=== PATIENT | male | born 1940 | race Caucasian/White ===

== ENCOUNTER 2019-11-22 06:00 | Outpatient (RCR) | payer MEDICARE, OTHER, SELFPAY | END 2019-12-21 23:59 | disposition home or self-care (01) | LOC: SPT 06:00 | PROVIDERS: Family Provider Internal Medicine; Visit Provider Licensed Practical Nurse | DX: M51.17 Intervertebral disc disorders with radiculopathy, lumbosacral region (principal) | CPT/HCPCS: 97001; 97110; 97161 ==

== ENCOUNTER → 2019-12-05 14:04 | Outpatient (BNVA) | payer OTHER, MEDICARE, SELFPAY | PROVIDERS: Family Provider Internal Medicine; PCP Internal Medicine; Visit Provider Nurse Practitioner | DX: G89.29 Other chronic pain (principal); M54.42 Lumbago with sciatica, left side; M54.41 Lumbago with sciatica, right side; Z79.891 Long term (current) use of opiate analgesic | CPT/HCPCS: 99213 ==

== ENCOUNTER → 2019-12-11 10:18 | Outpatient (BNVA) | payer OTHER, MEDICARE, SELFPAY | PROVIDERS: Family Provider Family Medicine; PCP Internal Medicine; Visit Provider Psychiatry & Neurology Neurology | DX: M51.17 Intervertebral disc disorders with radiculopathy, lumbosacral region (principal) | CPT/HCPCS: 95886; 95909 ==

== ENCOUNTER → 2020-01-02 11:10 | Outpatient (BNVA) | payer OTHER, SELFPAY | PROVIDERS: Family Provider Internal Medicine; PCP Internal Medicine; Visit Provider Anesthesiology | DX: M51.17 Intervertebral disc disorders with radiculopathy, lumbosacral region (principal); Z79.891 Long term (current) use of opiate analgesic | CPT/HCPCS: 99213; 99214 ==

== ENCOUNTER → 2020-01-10 05:47 | Day surgery (SDC) | payer OTHER, SELFPAY ==
--- NOTE | 2020-01-10 | XR_ITS ---
WS: [id number] XR lumbar spine 1V port [id number] REASON FOR EXAM: SURGERY/LEVEL FINDINGS: Markers were made for surgical level the markers are directed between the L3-L4 level. XR/XR lumbar spine 1V port [id number] IMPRESSION: 1 view lateral marker film provided shows localization at the L3-L4 level.
--- NOTE | 2020-01-10 | XR_ITS ---
WS: [id number] XR lumbar spine 1V port [id number] REASON FOR EXAM: SURGERY/LEVEL FINDINGS: The anterior listhesis L5-S1 appears to be improved since the earlier exams. There is degenerate disc changes L2-L3 with narrowing of the disc space. There is spurring anteriorly at L1-to-3. A marker is noted between the L3-4 level posteriorly. XR/XR lumbar spine 1V port [id number] IMPRESSION: A marker is noted between the L3 for level. There is thinning of the disc space L2-L3.
== END ==
PROVIDERS: Family Provider Internal Medicine; PCP Internal Medicine; Visit Provider Specialist
DX: Z01.818 Encounter for other preprocedural examination (principal); M48.061 Spinal stenosis, lumbar region without neurogenic claudication
CPT/HCPCS: 72020

== ENCOUNTER 2020-01-10 11:07 | Observation (INO) | payer OTHER, SELFPAY ==
[2020-01-09 13:49] VITALS: BMI 29.2
[2020-01-10] VITALS (19 sets, daily range): BP systolic 106–175; BP diastolic 56–85; PULSE 72–169; RESP 14–22; TEMP 36.2–36.8; O2SAT 91–100
[2020-01-10] MEDS: sodium chloride 0.9% 1,000 ML 30 ML IV (06:39)
--- NOTE | 2020-01-10 06:41 | ANES.PREANE2 ---
Pre-Anesthetic Assessment Pre-Anesthetic Assessment: Height/Weight: Height 1.68 m Weight 82.1 kg Temp Pulse Resp BP Pulse Ox 97.1 F L 77 18 162/84 95 01/10/20 06:22 01/10/20 06:22 01/10/20 06:22 01/10/20 06:22 01/10/20 06:22 Preop Diagnosis: Lumbar Spinal stenosis Proposed Procedure: Operation Date: 01/10/20 07:00 Proposed Procedures p Hemilaminotomy Foraminotomy Discectomy 2 L2-L3 L3-L4(Bilateral) - Valentin Foley MD Was Beta Shannen taken within 24 hours: Yes Last intake: Intake Last Liquid Date 01/09/20 Last Liquid Time 21:00 Last Solid Date 01/09/20 Last Solid Time 16:00 Social: Social History: No alcohol and No tobacco Exam: Pre-Anes Outpt Exam: alert, oriented x 3, clear to auscultation bilaterally and regular rate & rhythm Airway: Submandibular: WNL Cervical ROM: WNL MP: 2 Dentition: Other (poor dentation) History/ROS: No significant history except as noted Pulmonary: Pulmonary: Sleep apnea CV/HEM: CV/HEM: HTN : : None reported Hepatic: Hepatic: None reported GI: GI: None reported Metabolic: Metabolic: Hyperlipidemia Musc/skel: Musc/skel: Lower Back Pain and Weakness (LE) Neuropsych: Comments: sha carter Anesthetic Plan: ASA status: 3 Anesthesia: Anesthesia Evaluation and General Risk of > 500 ml blood loss (7ml/kg in children): No Meds/Allergies Current Medications: Current Medications Generic Name Dose Route Start Last Admin Trade Name Freq PRN Reason Stop Dose Admin Sodium Chloride 1,000 mls @ 30 ml s/hr 01/10/20 06:00 01/10/20 06:39 Sodium Chloride 0.9% IV 01/11/20 05:59 30 mls/hr .Q24H LISBET Administration PFSH Anesthesia PFSH: Medical History Intervertebral disc disorders with radiculopathy, 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 Grandmother CAD (coronary artery disease) Cancer Myocardial infarct Family/Other Hypertension Social History Smoking and tobacco status: never smoked Alcohol intake: never Marital status: / Current occupational status: retired History of recent travel: No Data Anesthesia Cardiac Studies: No Data to Display
[2020-01-10] MEDS: vancomycin 1,000 MG in sodium chloride 0.9% 250 ML 250 MG IV (06:46)
--- NOTE | 2020-01-10 06:58 | W.PM.OPSUD ---
Surgery/Procedure H&P Update DATE OF PROCEDURE: January 10, 2020 DATE H&P PERFORMED: 01/08/20 H&P UPDATE INFORMATION: I have reviewed H&P completed within last 30 days CHANGES TO PREVIOUS DOCUMENTATION: PCN - injection site reaction PREOP DIAGNOSIS: Lumbar Spinal stenosis PRIMARY INDICATION FOR PROCEDURE: Low back pain and lower extremity symptoms. PLANNED PROCEDURE: Operation Date: 01/10/20 07:00 Proposed Procedures Bilateral L2-L3, L3-L4 Hemilaminotomy/Foraminotomy/Discectomy - Valentin Foley MD
--- NOTE | 2020-01-10 07:16 | PM.OP2 ---
 Brief Operative Note: Date of procedure: 01/10/20 Pre-op diagnosis: Lumbar spinal stenosis Post-op diagnosis: same (with disc displacement) Procedure Done: Bilateral L2-L3 laminotomy/foraminotomy Bilateral L3-L4 laminotomy/foraminotomy and limited discectomy Surgeon: Valentin Foley Estimated blood loss (mL): 125 Complications: None Post-op Plan: PACU, then surgical bean Condition: stable Disposition: PACU Coding Level of Care Code Acute Machine Tack Puller for Krystyna Antony
--- NOTE | 2020-01-10 08:22 | SUR.OPER ---
Family Notified Of Patient's Status Via Phone.
--- NOTE | 2020-01-10 09:42 | SUR.OPER ---
Family Notified Of Patient's Status Via Phone.
--- NOTE | 2020-01-10 10:58 | SUR.PHASEI ---
1057 HOLDING PT IN PACU AWAITING ROOM ON FLOOR
[2020-01-10] MEDS: fentaNYL 50 mcg/mL INJ 2mL IVP ×2 (11:24→11:30)
--- NOTE | 2020-01-10 11:48 | P.OP_ITS ---
Operative Report Date of procedure: January 10, 2020 Pre-op Diagnosis: Lumbar Spinal stenosis Post-op Diagnosis: Lumbar disc displacement, with radiculopathy. Lumbar spinal stenosis, with neurogenic claudication. Procedure Done: Bilateral L3-L4 hemilaminotomy/foraminotomy, with limited discectomy. Bilateral L2-L3 laminotomy/foraminotomy. Implants: None Specimens removed/disposition: L3-L4 disc Pathology: Lumbar disc fragments Surgeon: Valentin Foley Anesthesia: General Estimated blood loss (mL): 125 IV fluids (mL): 1,000 Urine output (mL): 100 Complications: None. Condition: stable Disposition: PACU Brief History: The patient is a 79-year-old white male with symptomatic, radiographically confirmed lumbar disc/joint disease and associated spinal stenosis. Imaging studies demonstrated dominant abnormalities at L2-L3 and L3- L4. Conservative treatment trials failed to provide adequate lasting relief. After review of the options, with the risks/potential benefits/rationale for each, the patient requested to proceed with bilateral surgical decompression at L2-L3 and L3-L4. Procedure: After routine preoperative evaluation and informed consent were obtained, the patient was taken to the Operating Room and placed under general endotracheal anesthesia. He was rotated onto the Operating Room table in the modified knee-chest position with the aid of the [place] spine frame. The lumbosacral area was prepared with hair clippers. A proposed midline skin incision was marked with a sterile skin marker, following localization with intraoperative radiography. The lumbosacral area was scrubbed with Betadine and prepped with DuraPrep. Sterile towels and drapes were applied, and an [place] surgical barrier was placed. The proposed incision site was infiltrated with 1% Xylocaine with Epinephrine. A skin incision was made and carried down into the subcutaneous tissues. The lumbodorsal fascia was identified and divided in the midline. Subperiosteal dissection was carried down along the lamina of L2, L3 and L4 on the right. Deep self-retaining retractor was placed. Intraoperative radiography verified the desired surgical level. A laminotomy was fashioned across the L3-L4 interspace with Leksell and Kerrison rongeurs. Ligamentum flavum was resected at the base of the laminotomy site with Kerrison rongeurs. Ligament resection was extended across the midline and into the lateral recess. A limited resection of the medial aspect of the facet joint was also performed to further decompress the lateral recess. The neural foramen was identified and enlarged in its medial extent with Kerrison rongeurs. The thecal sac was retracted from lateral to medial with the nerve root retractor. Residual neural impingement and lateral recess/foraminal encroachment were noted related to disc displacement. The disc annulus was incised in the area of most prominent disc displacement. Disc was resected with various curettes and pituitary rongeurs. Once the decompression was felt to be adequate at L3-L4, a laminotomy was fashioned across the L2-L3 interspace. Ligamentum flavum was resected to base the laminotomy site. Resection was extended across the midline and into the lateral recess. A limited resection of the medial aspect of the facet joint was performed. Disc herniation was not identified, and no discectomy was performed. The dura was covered with thrombin-soaked Gelfoam and cottonoids. The retractors were repositioned to the left side. A left-sided subperiosteal dissection was carried out across L2-L3 and L3-L4. A laminotomy was again fashioned with Leksell and Kerrison rongeurs at L3-L4 and subsequently at L2-L3. Ligamentum flavum was resected at the base of the laminotomy sites, with extension into the lateral recesses. A limited resection of the medial aspect of the facet joints was performed with Kerrison rongeurs. The neural foramina were enlarged in their medial extent. Disc bulge was encountered, without hien disc herniation. No additional disc material was removed. Retractors were repositioned to maximize the exposure bilaterally. The previously placed Gelfoam and Cottonoids were removed, and the wound was copiously irrigated with sterile saline and antibiotic irrigation. Bilateral decompression of the neural elements at the operative levels was again verified with the [place] dental instrument. A thin layer of Surgi-Corona hemostatic matrix was placed over the dura at each laminotomy site. Wound closure was then performed in multiple layers with 2-0 Vicryl Plus simple interrupted closure of the lumbodorsal fascia, superficial fascia and deep dermis as separate layers. Final skin closure was performed with 3-0 Vicryl Plus in a running subcuticular pattern. Steri-Strips were applied, and a sterile dressing was placed. He was rotated onto the Recovery Room cart in the supine position, and extubated by Anesthesia personnel. He tolerated the procedure well. All sponge, needle, and instrument counts were correct at the completion of the procedure.
[2020-01-10] MEDS: lactated ringers 1,000 ML 90 ML IV ×2 (12:40→23:50)
[2020-01-10] MEDS: ketorolac 30 mg/mL INJ 15 MG IVP ×3 (12:40→23:40)
[2020-01-10] MEDS: TRAMadol 50 mg Tablet 100 MG PO ×2 (13:12→23:41)
[2020-01-10] MEDS: acetaminophen 325 mg Tablet 650 MG PO (15:15)
[2020-01-10] MEDS: carbidopa-levodopa 25-100mg Tablet 1 EACH PO ×2 (16:32→19:14)
--- NOTE | 2020-01-10 17:24 | PC.NURSE ---
bladder scan 76 is the most urine scanned on bladder. pt has voided once since surgery.
--- NOTE | 2020-01-10 18:18 | PM.PN ---
Subjective Subjective: Interval history: Reports surgical site soreness. Ambulated around nurses station. No leg problems. Vitals/I&O/Wt Last Vital Signs Temp 97.8 F 01/10/20 15:15 Pulse 80 01/10/20 17:01 Resp 18 01/10/20 15:15 BP 146/60 01/10/20 15:15 Pulse Ox 91 01/10/20 15:15 01/10/20 01/10/20 01/10/20 06:59 14:59 22:59 Intake Total 1700 / 1700 Output Total 525 / 525 Balance 1175 / 1175 Weight last 48 hrs Weight 181 lb Physical Exam Const: COMMON NORMALS: no apparent distress GENERAL APPEARANCE: cooperative Eye: ALIGNMENT: Yes alignment normal Neck/C-Spine: COMMON NORMALS: supple Resp: COMMON NORMALS: normal respiratory effort EFFORT & INSPECTION: Yes able to speak in complete sentences and No stridor Back/Pelvis: LUMBAR SPINE/LOWER BACK: Yes normal to inspection Neuro: COMMON NORMALS: moves all extremities SPEECH: speech normal MOTOR EXAM: strength 5/5 throughout (bilateral lower extremities) Psych: COMMON NORMALS: speech normal APPEARANCE: Yes grossly normal ATTITUDE: Yes calm and Yes engaged ACTIVITY/MOTOR BEHAVIOR: Yes appropriate eye contact SPEECH: Yes normal speech MOOD & AFFECT: Yes euthymic mood Skin: WOUNDS: Yes surgical site (Surgical site dressing with small amount of serosanguineous drainage.) Details: other (Dressing changed at bedside. Incision without active drainage.) Urinary Catheter Management^: Reaves: Cath Placed During This Visit: yes, but has since been removed by the nurse Urinary Catheter Date of Insertion: 01/10/20 Urinary Catheter Time of Insertion: 07:30 Date Urinary Catheter Removed: 01/10/20 Time Urinary Catheter Discontinued: 10:15 A&P Assessment and plan (1) Lumbar disc disease with radiculopathy: Doing well after bilateral L2-L3, L3-L4 laminotomy/foraminotomy and L3-L4 discectomy. He has ambulated in the halls with relief/marked improvement in pre-op symptoms noted. Plan completion of scheduled celestine-op IV antibiotic doses. Anticipate discharge home tomorrow. Status: Acute Code(s): M51.16 - Intervertebral disc disorders with radiculopathy, lumbar region (2) Lumbar stenosis with neurogenic claudication: Status: Chronic Code(s): M48.062 - Spinal stenosis, lumbar region with neurogenic claudication Attestations Medical Necessity Statement*: Patient is appropriate for in-hospital management after lumbar spine surgery. Coding Level of Care Code Acute Instructional Design Manager for [facility] Fwd Exam Comprehensive Diagnoses Lumbar disc disease with radiculopathy M51.16 Lumbar stenosis with neurogenic claudication M48.062
[2020-01-10] MEDS: docusate sodium 100 mg Capsule PO (18:34)
[2020-01-10] MEDS: primidone 50 mg Tablet 100 MG PO (19:13)
[2020-01-10] MEDS: losartan 50 mg Tablet PO (19:14)
[2020-01-10] MEDS: ondansetron 2 mg/ML SDV 2 mL 4 MG IVP (23:39)
--- NOTE | 2020-01-10 23:59 | PC.NURSE ---
Patient incontinent of urine large amount of urine in bed pad.
[2020-01-11] VITALS (7 sets, daily range): BP systolic 124–158; BP diastolic 57–78; PULSE 76–87; RESP 16–18; TEMP 36.6–36.9; O2SAT 92–95
--- NOTE | 2020-01-11 02:02 | PC.NURSE ---
Patient incontinent of urine, medium amount of urine in bed pad.
[2020-01-11] MEDS: ketorolac 30 mg/mL INJ 15 MG IVP (05:26)
[2020-01-11] MEDS: amlodipine 10 mg Tablet 5 MG PO (08:33)
[2020-01-11] MEDS: losartan 50 mg Tablet PO (08:33)
[2020-01-11] MEDS: TRAMadol 50 mg Tablet 100 MG PO ×3 (08:34→17:22)
[2020-01-11] MEDS: pregabalin 75 mg Capsule PO (08:35)
[2020-01-11] MEDS: docusate sodium 100 mg Capsule PO ×2 (08:35→17:22)
[2020-01-11] MEDS: citalopram 20 mg Tablet PO (08:35)
[2020-01-11] MEDS: carbidopa-levodopa 25-100mg Tablet 1 EACH PO ×3 (08:35→17:22)
--- NOTE | 2020-01-11 10:56 | PC.CHAP ---
Pastoral Care Encounter/Spiritual Assessment Type of Contact [] Declined railroad car loader visit [] Patient/Family/Request visit [] Outpatient visit [] Follow-up visit [] Physician referral [] Code/Alert [x] Routine visit [] Staff referral [] Actively dying [] Patient sleeping [] Family support [] [] Out of room [] Palliative care [] [] Receiving care in room [] Pre-surgical visit [] Trauma [] Long length of stay [] ICU visit [] Other: Relational/Emotional Strength [x] Patient feels connected with others/family/visitors/staff [] Distress [] Loneliness/isolation [] Abandonment Spirituality of Patient [x] Person of Gerda [x] Attends Church of their Gerda [x] Believes in Prayer [] Reads Bible or Jewish materials [] There are Spiritual issues to be addressed Senior Professional Services Consultant Interventions [x] Prayer [x] Active listening [x] Non-anxious presence [] Spiritual/emotional support [] Crisis/trauma care [] Spiritual counseling [] Bereavement support [] Provided bereavement packet [] Provided Bible/devotional materials [] Provided toy/stuffed animal, coloring book to patient or family member [] Provided Communion [] Anointing/[place] [] Salvation [x] Completed spiritual assessment [] Other: Impact on Illness or Injury [] Angry [] Fearful [] Anxious [] Often cries [] Exhaustion [] Unable to work [] Unable to attend episcopalian [] Unable to walk/stand [] Unable to read [] Unable to drive [] Unable to eat/drink [] Unable to sleep [] Unable to be with family [] Patient intubated [] Other: Summary patient in good spirts wants to go home seems alittle disorientated Time spent with patient 10 min 2 visitors
[2020-01-11] MEDS: acetaminophen 325 mg Tablet 650 MG PO (12:34)
[2020-01-11] MEDS: lactated ringers 1,000 ML 90 ML IV (15:14)
--- NOTE | 2020-01-11 19:42 | PM.DCS ---
Discharge Providers Date of Admission: 01/10/20 11:07 Date of Discharge: January 11, 2020 Attending Provider at Admission: Valentin Foley MD Attending Provider at Discharge: Valentin Foley MD Primary Care Provider: Gautam Godoy Diagnoses at Discharge Discharge Diagnosis (1) Lumbar disc disease with radiculopathy: Status: Acute Problem details: Improved. Status post surgery on January 10 (2) Lumbar stenosis with neurogenic claudication: Status: Chronic Reason for Visit Reason for Visit: Reason For Visit: Lumbar Spinal Stenosis Brief History: The patient is a 79-year-old white male with symptomatic, radiographically confirmed lumbar disc/joint disease and associated spinal stenosis. Imaging studies demonstrated dominant abnormalities at L2-L3 and L3-L4. Conservative treatment trials failed to provide adequate lasting relief. After review of the options, with the risks/potential benefits/rationale for each, the patient requested to proceed with bilateral surgical decompression at L2-L3 and L3-L4. Hospital Course Hospital Course: The patient underwent bilateral L2-L3 and L3-L4 laminotomy/foraminotomy, with limited L3-L4 discectomy, on 01/10/2020. He tolerated the procedure well, and noted improvement in pre-op lower extremity /claudication symptoms following surgery. He completed perioperative IV antibiotic doses and the Physical Therapy postop spine protocol. He experienced some confusion and urinary urgency issues postoperatively. However, he was ambulatory, voiding, and tolerating diet prior to discharge home with family on POD#1. Physical Exam Const: GENERAL APPEARANCE: cooperative and comfortable ORIENTATION/CONSCIOUSNESS: not other Neck/C-Spine: COMMON NORMALS: supple and no JVD Resp: COMMON NORMALS: normal respiratory effort EFFORT & INSPECTION: Yes able to speak in complete sentences, No tachypneic and No stridor Cardio: COMMON NORMALS: no JVD Back/Pelvis: LUMBAR SPINE/LOWER BACK: Yes straight leg raise negative bilaterally Extremity: COMMON NORMALS: no clubbing, cyanosis or edema Neuro: MOTOR EXAM: strength 5/5 throughout (lower extremities) Psych: COMMON NORMALS: cooperative ATTITUDE: Yes calm ACTIVITY/MOTOR BEHAVIOR: Yes appropriate eye contact SPEECH: Yes other MOOD & AFFECT: Yes euthymic mood THOUGHT PROCESS: confused (mild) Skin: WOUNDS: Yes surgical site (Surgical site dressing C/D/I) Details: other (Incision without erythema or drainage) Urinary Catheter Management^: Reavse: Cath Placed During This Visit: yes, but has since been removed by the nurse Urinary Catheter Date of Insertion: 01/10/20 Urinary Catheter Time of Insertion: 07:30 Date Urinary Catheter Removed: 01/10/20 Time Urinary Catheter Discontinued: 10:15 Discharge Data Data Completed and Pending: Completed Studies During Hospitalization Category Date Time Status Pathology: Surgic al [PTH] Routine Pth 01/10/20 10:09 Completed Vitals: Last Vital Signs Temp 98.5 F 01/11/20 20:27 Pulse 79 01/11/20 20:27 Resp 18 01/11/20 20:27 BP 158/78 01/11/20 20:27 Pulse Ox 93 01/11/20 20:27 Discharge Plan Discharge Patient Disposition: Home, Self-Care Condition: Stable Prescriptions: Continued ranitidine HCl 300 mg tablet 300 mg PO BID RF: 0 primidone 50 mg tablet 100 mg PO BEDTIME RF: 0 carbidopa-levodopa 25-100 mg tablet,disintegrating 1 tab PO QID RF: 0 losartan 100 mg tablet 50 mg PO ONCE RF: 0 No Action amlodipine 10 mg Tablet 10 mg PO DAILY Qty: 30 RF: 0 Aspirin Low Dose 81 mg tablet,delayed release (DR/EC) 81 mg PO DAILY Qty: 30 RF: 0 atorvastatin 40 mg Tablet 80 mg PO BEDTIME Qty: 30 RF: 0 Miralax 17 gram Powder In Packet 17 g PO BID Qty: 60 RF: 0 Lidoderm 5 % Adhesive Patch,Medicated 1 patch topical [id number] Qty: 30 RF: 0 tramadol 50 mg tablet 50 mg PO TID PRN (Reason: pain) Qty: 20 RF: 0 Plavix 75 mg tablet 75 mg PO DAILY Qty: 30 RF: 0 Discharge Orders: Discharge Order (Routine); Ordered 01/11/20 Ordered By: Valentin Foley Referrals: Valentin Foley MD [Physician] - 2 weeks Discharge Diet: Regular Discharge Activity: Limit activity as instructed Activity Restrictions/Additional Instructions: Activity - No driving until office followup visit - No lifting/pushing/pulling over 10 pounds - Avoid twisting or bending - Walking is encouraged - Home exercise per physical therapist - You may engage in sexual intercourse at any time as long as it is comfortable for you - Check with your doctor before returning to work. Notify your doctor if you develop: - temperature of 101.5 degrees F. or higher - redness or swelling of the incision - Foul drainage - increasing pain - increasing numbness or tingling in the arms or legs - New or increasing problems with vision, balance, memory, speaking, nausea or vomiting Hygiene: - Showering is okay - No tub baths or soaking Other: Remove outer bandage 3 days after surgery. If you have paper strips, leave in place until they fall off on their own. If you have stitches, keep your incision dry until the stitches are removed. Your doctor's office is available to answer any questions from 7 AM to 5:00 PM, Tuesday through at [phone]. After hours, go to the emergency room at [facility] or call 911 for assistance. Discharge Date/Time: 01/11/20 20:50 Discharge Attestations Time Spent in Discharge Care*: other (postop global) Quality Metrics Clinical Quality Measures During this hospital stay, did patient experience: None Coding Level of Care Code Acute Recycler for [facility] Fwd Exam Comprehensive Diagnoses Lumbar disc disease with radiculopathy M51.16 Lumbar stenosis with neurogenic claudication M48.062 Comment postop global
--- NOTE | 2020-01-11 20:50 | PC.NURSE ---
Pt discharged home with family, left via wheelchair. All belongings went with pt, pt understands discharge instructions, pt informed that gate services supervisor would not be available to assist with home health set up until morning, pt verbalized understanding. Hilaria Sharp RN called and left a message with Amusement Equipment Operator to assist pt with home health placement in the morning.
== END 2020-01-11 20:50 | disposition home or self-care (01) ==
LOC: MEDSURG 11:28
PROVIDERS: Admitting Provider Specialist; Family Provider Internal Medicine; PCP Internal Medicine; Visit Provider Specialist
PROC: (CPT 22899; principal; 2020-01-10 07:00)
DX: M51.16 Intervertebral disc disorders with radiculopathy, lumbar region (principal); M48.062 Spinal stenosis, lumbar region with neurogenic claudication; G47.30 Sleep apnea, unspecified; I10 Essential (primary) hypertension; E78.5 Hyperlipidemia, unspecified; G20 Parkinson's disease; Z80.42 Family history of malignant neoplasm of prostate; Z90.49 Acquired absence of other specified parts of digestive tract; Z82.49 Family history of ischemic heart disease and other diseases of the circulatory system
CPT/HCPCS: 63030; 63035; 12345; 51702; 72020; 88304; 96365; 96375; 97116; 97161; 97530; G0378; J0131; J0690; J1885; J2001; J2405; J2704; J3010; J3370; J3490; J7030; J7050

== ENCOUNTER 2020-01-12 16:31 | Inpatient (IN) | payer OTHER, SELFPAY ==
[2020-01-12] VITALS (10 sets, daily range): BP systolic 144–181; BP diastolic 60–92; PULSE 82–92; RESP 16–26; TEMP 36.6; O2SAT 94–98; BMI 29.3
--- NOTE | 2020-01-12 16:51 | ED_ITS ---
Entered by Lisa Hodge, acting as scribe for Bright Aden DO Jan 12, 2020 16:31 HPI - Altered Mental Status General: Chief Complaint: Altered Mental Status Stated Complaint: AMS S/P BACK SURGERY Time Seen by Provider: 01/12/20 16:50 Source: patient Mode of arrival: EMS Limitations: altered mental status History of Present Illness: HPI narrative: 79 yo Male presents to ED with complaint of altered mental status. Pt states that he didn't know he was brought into the hospital. Pt knows that he is in [place] and states he is with his daughter. Pt states that it is January and he doesn't know what year it is. Pt has recently had lower back surgery. Pt states that it doesn't hurt when he pees. Pt's family states that patient has had issues controlling his bowels since he was catherized for his surgery. Pt's family states that the patient does also have Parkinson's and they were told that the patient might have continued effects of the anesthesia for a couple of days but that the patient should be gradually getting better. Pt's family states that the patient has been getting worse and today started complaining of left arm pain. laminectomy done [address] Foley. complaint: altered mental status Onset (ago): day(s) Consistency of symptoms: Getting Worse Context: other (back surgery 3 days ago) Associated symptoms: Deny auditory hallucinations, visual hallucinations, depression, homicidal ideation or suicidal ideation Review of Systems Const: Denies: fever, chills, body aches, fatigue, malaise or night sweats Eyes: Denies: change in vision or blurry vision ENMT: Denies: throat pain, oral sores/lesions, dental pain, nasal discharge or nasal congestion Card: Denies: chest pain, palpitations, irregular heart rhythm, edema, syncope, shortness of breath on exertion, shortness of breath when lying down or leg pain with exertion Resp: Denies: shortness of breath, productive cough, non-productive cough or wheezing GI: Denies: abdominal pain, nausea, vomiting, vomiting blood, coffee grounds in vomit, difficulty swallowing, heartburn/indigestion, diarrhea, constipation, cramping, blood in stool or black tarry stool : Denies: flank pain, difficulty urinating, painful urination, urinary frequency, urinary urgency, urinary incontinence or blood in urine Musc: Denies: neck pain, back pain, extremity pain, extremity swelling, joint pain or joint swelling Skin/Breast: Denies: rash, itching or redness Neuro: Reports: confusion; Denies: headache, numbness in extremities, weakness in extremities, changes in sensation, lack of coordination, difficulty walking, frequent falls, dizziness or vertigo Psych: Denies: anxiety, depression, loss of interest, visual hallucinations, auditory hallucinations, suicidal ideation or homicidal ideation Endo: Denies: excessive urination, excessive thirst, tired all the time or cold intolerance Griffin/Lymph: Denies: easy bruising, easy bleeding, petechiae, enlarged lymph nodes or tender lymph nodes PFSH ED PFSH: Medical History (Updated 01/14/20 @ 14:52 by Bright Aden DO) Arthritis of left acromioclavicular joint Closed fracture of neck of left humerus Intervertebral disc disorders with radiculopathy, lumbosacral region Lumbar stenosis with neurogenic claudication Osteoarthritis of right glenohumeral joint Parkinson's disease Prostate CA Radioactive seed implant 2009 Surgical History H/O elbow surgery S/P cataract extraction BILATERAL S/P cholecystectomy S/P shoulder surgery S/P tonsillectomy and adenoidectomy Family History Mother No problems noted. Grandmother CAD (coronary artery disease) Cancer Myocardial infarct Family/Other Hypertension Social History Smoking and tobacco status: never smoked Alcohol intake: never Marital status: / Current occupational status: retired History of recent travel: No Physical Exam Const: COMMON NORMALS: average body habitus, oriented x3 and alert GENERAL APPEARANCE: cooperative, comfortable, well kempt and well developed NUTRITIONAL APPEARANCE: obese ORIENTATION/CONSCIOUSNESS: Yes awake, Yes oriented to person and Yes oriented to place HENMT: COMMON NORMALS: normocephalic, head/scalp atraumatic, EAC's normal, TM's normal bilaterally, external nose normal, moist oral mucous membranes and oropharynx normal HEAD & SCALP: normocephalic and atraumatic NOSE: external nose normal EXTERNAL AUDITORY CANAL: EAC's normal TYMPANIC MEMBRANE: TM's normal bilaterally MOUTH: oral and palatal mucosa normal, lip normal and tongue normal THROAT: posterior oropharynx normal and tonsils normal Eye: COMMON NORMALS: PERRL, EOMs intact bilaterally, conjunctivae normal and no scleral icterus CONJUNCTIVA: Yes conjunctivae normal PUPIL: Yes PERRL Neck/C-Spine: COMMON NORMALS: full ROM, no lymphadenopathy, supple, no meningeal signs and thyroid normal THYROID: thyroid normal and asymmetrical Lymph: LYMPHATIC: no lymphadenopathy noted Resp: COMMON NORMALS: normal respiratory effort, no retractions, no use of accessory muscles and clear to auscultation bilaterally AUSCULTATION: clear to auscultation bilaterally Cardio: COMMON NORMALS: regular rate and regular rhythm RATE: regular rate RHYTHM: regular rhythm HEART SOUNDS: no murmurs GI: COMMON NORMALS: normal to inspection, nondistended, normoactive bowel sounds, soft to palpation and no hepatosplenomegaly PALPATION: Yes soft and Yes no hepatosplenomegaly : COMMON NORMALS: Yes no CVA tenderness BLADDER/KIDNEY EXAM: Yes no CVA tenderness Back/Pelvis: COMMON NORMALS: no CVA tenderness LUMBAR SPINE/LOWER BACK: Yes normal to inspection Extremity: COMMON NORMALS: no clubbing, cyanosis or edema, no calf tenderness and no pedal edema Neuro: COMMON NORMALS: oriented x3 SENSORIUM/ORIENTATION: Yes alert, Yes oriented to person and Yes oriented to place MENINGEAL SIGNS: Yes no meningeal signs Psych: APPEARANCE: Yes well kempt Skin: COMMON NORMALS: no rashes or lesions noted and skin turgor normal GENERAL SKIN EXAM: no rashes or lesions noted and turgor normal Course ED course: Reviewed findings with the family. Is concerned he may have developed an abscess but there is nothing on the CT. Organ to go ahead admitted for delirium suspect is related to his recent surgical procedure. He was still complaining of left arm pain there is no history of fall they thought that he had slept on it wrong. X-ray shows an impacted humeral head fracture. Hospitalist is admitting. Vital Signs: Vital signs: Vital Signs Temperature 98.5 F 01/14/20 11:06 Pulse Rate 64 01/14/20 11:06 Respiratory Rate 18 01/14/20 11:06 Blood Pressure 182/91 01/14/20 11:06 Pulse Oximetry 93 01/14/20 11:06 MDM - Altered Mental Status Lab Data: Labs: Lab Results 01/12/20 01/12/20 01/12/20 Range/Units 17:15 17:18 17:18 WBC 13.5 H (4.0-10.0) 10^3/ uL RBC 3.67 L (4.1-5.3) 10^6/u L Hgb 11.2 L (11.7-16.6) g/dL Hct 33.8 L (42.0-52.0) % MCV 92.1 (80-94) fL MCH 30.5 (28.0-34.0) pg MCHC 33.1 (30.0-36.0) g/dL RDW 12.2 (12.1-15.1) % Plt Count 128 L (130-400) 10^3/c mm MPV 10.8 H (7.4-10.4) fL Neut % (Auto) 82.8 % Lymph % (Auto) 5.9 % [place] % (Auto) 10.8 % Eos % (Auto) 0.0 % Baso % (Auto) 0.1 % Neut # (Auto) 11.2 H (1.8-7.7) 10^3/u L Lymph # (Auto) 0.8 (0.8-4.8) 10^3/u L [place] # (Auto) 1.5 H (0.2-0.9) 10^3/u L Eos # (Auto) 0.0 (0.0-0.8) 10^3/u L Baso # (Auto) 0.0 (0.0-0.1) 10^3/u L Nucleated RBC % (a uto) 0 % Nucleated RBCs # 0.0 /100WBC Specimen Type Arterial Sample Site Radial, right ABG pH 7.49 H (7.35-7.45) ABG pCO2 32.4 L (35-45) mmHg ABG pO2 77.6 L (80.0-100.0) mmH g ABG HCO3 24.5 (22-26) mmol/L ABG O2 Saturation 97.0 ABG Base Excess 1.6 (-2.0-2.0) mmol/ L Dean Test Pos A-a O2 Gradient 79.8 H (5-10) mmHg Hematocrit 37.5 L (42-52) % Hgb O2 Saturation 95.5 (95-100) % Carboxyhemoglobin 0.9 (0.4-20.1) %THgb Methemoglobin 0.6 (0.4-1.5) % Total Hemoglobin 12.2 L (14-18) g/dL Sodium 134.0 132 L (131-143) mmol/L Potassium 3.9 4.0 (3.5-5.0) mmol/L Glucose 115.0 115 (70-115) mg/dL Ionized Calcium 1.1 (1.1-1.4) mmol/L O2 Delivery Device Nc O2 Liters/Min 2.0 % FiO2 28.0 % [employer]ision Instrument Maker And Repairer ID ed Chloride 97 L (98-107) mmol/L Carbon Dioxide 23 (22-29) mmol/L Anion Gap 16.0 (5-19) BUN 12 (8-23) mg/dL Creatinine 0.8 (0.7-1.2) mg/dL Calcium 8.9 (8.5-10.5) mg/dL Total Bilirubin 0.5 (0.15-1.2) mg/dL AST 19 (0-40) U/L ALT < 5 (0-41) U/L Alkaline Phosphata se 101 (40-130) IU/L Troponin T Baselin e (0-15) ng/mL Troponin T 120 Min [facility] [place] (0-15) ng/mL Delta Troponin T (0-10) ABS# Total Protein 6.4 L (6.6-8.7) g/dL Albumin 3.4 L (3.5-5.2) g/dL Globulin 3.0 (1.3-4.6) g/dL Lipase 5 L (13-60) U/L Urine Color (Yellow) Urine Appearance (CLEAR) Urine pH (5-7) Ur Specific Gravit y (1.005-1.030) Urine Protein (Negative) Urine Glucose (UA) (Normal) Urine Ketones (Negative) Urine Blood (Negative) Urine Nitrate (Negative) Urine Bilirubin (NEGATIVE) Urine Urobilinogen (Negative) mg/dL Ur Leukocyte Adelaide ase (Negative) Urine RBC (0-2) /hpf Urine WBC (0-5) /hpf Ur Squamous Epith Cells (0-5) Urine Bacteria (NONE) Urine Mucus Serum Ketones (Negative) Influenza Type A A g (Negative) POC Influenza B Ag (Negative) 01/12/20 01/12/20 01/12/20 Range/Units 17:18 17:18 17:25 WBC (4.0-10.0) 10^3/ uL RBC (4.1-5.3) 10^6/u L Hgb (11.7-16.6) g/dL Hct (42.0-52.0) % MCV (80-94) fL MCH (28.0-34.0) pg MCHC (30.0-36.0) g/dL RDW (12.1-15.1) % Plt Count (130-400) 10^3/c mm MPV (7.4-10.4) fL Neut % (Auto) % Lymph % (Auto) % [place] % (Auto) % Eos % (Auto) % Baso % (Auto) % Neut # (Auto) (1.8-7.7) 10^3/u L Lymph # (Auto) (0.8-4.8) 10^3/u L [place] # (Auto) (0.2-0.9) 10^3/u L Eos # (Auto) (0.0-0.8) 10^3/u L Baso # (Auto) (0.0-0.1) 10^3/u L Nucleated RBC % (a uto) % Nucleated RBCs # /100WBC Specimen Type Sample Site ABG pH (7.35-7.45) ABG pCO2 (35-45) mmHg ABG pO2 (80.0-100.0) mmH g ABG HCO3 (22-26) mmol/L ABG O2 Saturation ABG Base Excess (-2.0-2.0) mmol/ L Dean Test A-a O2 Gradient (5-10) mmHg Hematocrit (42-52) % Hgb O2 Saturation (95-100) % Carboxyhemoglobin (0.4-20.1) %THgb Methemoglobin (0.4-1.5) % Total Hemoglobin (14-18) g/dL Sodium (131-143) mmol/L Potassium (3.5-5.0) mmol/L Glucose (70-115) mg/dL Ionized Calcium (1.1-1.4) mmol/L O2 Delivery Device O2 Liters/Min % FiO2 % [employer] Maker And Repairer ID Chloride (98-107) mmol/L Carbon Dioxide (22-29) mmol/L Anion Gap (5-19) BUN (8-23) mg/dL Creatinine (0.7-1.2) mg/dL Calcium (8.5-10.5) mg/dL Total Bilirubin (0.15-1.2) mg/dL AST (0-40) U/L ALT (0-41) U/L Alkaline Phosphata se (40-130) IU/L Troponin T Baselin e 15 (0-15) ng/mL Troponin T 120 Min [facility] [place] (0-15) ng/mL Delta Troponin T (0-10) ABS# Total Protein (6.6-8.7) g/dL Albumin (3.5-5.2) g/dL Globulin (1.3-4.6) g/dL Lipase (13-60) U/L Urine Color (Yellow) Urine Appearance (CLEAR) Urine pH (5-7) Ur Specific Gravit y (1.005-1.030) Urine Protein (Negative) Urine Glucose (UA) (Normal) Urine Ketones (Negative) Urine Blood (Negative) Urine Nitrate (Negative) Urine Bilirubin (NEGATIVE) Urine Urobilinogen (Negative) mg/dL Ur Leukocyte Adelaide ase (Negative) Urine RBC (0-2) /hpf Urine WBC (0-5) /hpf Ur Squamous Epith Cells (0-5) Urine Bacteria (NONE) Urine Mucus Serum Ketones Negative (Negative) Influenza Type A A g Negative (Negative) POC Influenza B Ag Negative (Negative) 01/12/20 01/12/20 Range/Units 18:00 19:16 WBC (4.0-10.0) 10^3/ uL RBC (4.1-5.3) 10^6/u L Hgb (11.7-16.6) g/dL Hct (42.0-52.0) % MCV (80-94) fL MCH (28.0-34.0) pg MCHC (30.0-36.0) g/dL RDW (12.1-15.1) % Plt Count (130-400) 10^3/c mm MPV (7.4-10.4) fL Neut % (Auto) % Lymph % (Auto) % [place] % (Auto) % Eos % (Auto) % Baso % (Auto) % Neut # (Auto) (1.8-7.7) 10^3/u L Lymph # (Auto) (0.8-4.8) 10^3/u L [place] # (Auto) (0.2-0.9) 10^3/u L Eos # (Auto) (0.0-0.8) 10^3/u L Baso # (Auto) (0.0-0.1) 10^3/u L Nucleated RBC % (a uto) % Nucleated RBCs # /100WBC Specimen Type Sample Site ABG pH (7.35-7.45) ABG pCO2 (35-45) mmHg ABG pO2 (80.0-100.0) mmH g ABG HCO3 (22-26) mmol/L ABG O2 Saturation ABG Base Excess (-2.0-2.0) mmol/ L Dean Test A-a O2 Gradient (5-10) mmHg Hematocrit (42-52) % Hgb O2 Saturation (95-100) % Carboxyhemoglobin (0.4-20.1) %THgb Methemoglobin (0.4-1.5) % Total Hemoglobin (14-18) g/dL Sodium (131-143) mmol/L Potassium (3.5-5.0) mmol/L Glucose (70-115) mg/dL Ionized Calcium (1.1-1.4) mmol/L O2 Delivery Device O2 Liters/Min % FiO2 % [employer] Instrument Maker And Repairer ID Chloride (98-107) mmol/L Carbon Dioxide (22-29) mmol/L Anion Gap (5-19) BUN (8-23) mg/dL Creatinine (0.7-1.2) mg/dL Calcium (8.5-10.5) mg/dL Total Bilirubin (0.15-1.2) mg/dL AST (0-40) U/L ALT (0-41) U/L Alkaline Phosphata se (40-130) IU/L Troponin T Baselin e (0-15) ng/mL Troponin T 120 Min [facility] [place] 16.53 H (0-15) ng/mL Delta Troponin T 1.53 (0-10) ABS# Total Protein (6.6-8.7) g/dL Albumin (3.5-5.2) g/dL Globulin (1.3-4.6) g/dL Lipase (13-60) U/L Urine Color Yellow (Yellow) Urine Appearance Clear (CLEAR) Urine pH 5 (5-7) Ur Specific Gravit y 1.020 (1.005-1.030) Urine Protein Neg (Negative) Urine Glucose (UA) Norm (Normal) Urine Ketones 1+ H (Negative) Urine Blood 2+ H (Negative) Urine Nitrate Negative (Negative) Urine Bilirubin Neg (NEGATIVE) Urine Urobilinogen Norm (Negative) mg/dL Ur Leukocyte Adelaide ase Negative (Negative) Urine RBC 5-10 H (0-2) /hpf Urine WBC None (0-5) /hpf Ur Squamous Epith Cells Rare (0-5) Urine Bacteria Trace (NONE) Urine Mucus Trace Serum Ketones (Negative) Influenza Type A A g (Negative) POC Influenza B Ag (Negative) Imaging Data^: CT Head: Radiologist's impression: [place] [address] CT Scan Report Signed Patient: Renny Matos #: [id number] : 2Acct#:[id number] Age/Sex: 79 / MADM Date: 01/12/20 Loc: [facility]/Bed: Attending Dr: Ordering Provider/Ordering MD: Bright Aden DO Date of Service: 01/12/20 Procedure(s): CT head wo con* [id number] Accession Number(s): [id number] Report Number: [id number] PROCEDURE INFORMATION: Exam: CT Head Without Contrast Exam date and time: 01/12/2020 5:16 PM Age: 79 years old Clinical indication: Altered mental status/memory loss; Confusion or disorientation; Patient HX: AMS after lumbar laminotomy on 01-10 TECHNIQUE: Imaging protocol: Computed tomography of the head without contrast. Total DLP: 1438.63 mGy-cm Radiation optimization: All CT scans at this facility use at least one of these dose optimization techniques: automated exposure control; mA and/or kV adjustment per patient size (includes targeted exams where dose is matched to clinical indication); or iterative reconstruction. COMPARISON: CT head wo con* [id number] 10/19/2019 6:39 PM FINDINGS: Brain: Mild atrophy and mild white matter chronic microvascular changes are noted. No hemorrhage or CT evidence of acute infarction is seen. Ventricles: Normal. No ventriculomegaly. Bones/joints: Unremarkable. No acute fracture. Sinuses: Visualized sinuses are unremarkable. No fluid levels. Mastoid air cells: Visualized mastoid air cells are well aerated. Soft tissues: Unremarkable. CT/CT head wo con* [id number] IMPRESSION: No acute intracranial abnormality. Radiation Dose CTDIVOL = (mGy): DLP = 1438.63 (mGy-cm) Dictated By:Valentin Diallo MD Signed By:Valentin Diallo MDSigned Date/Time:01/12/201903 DD/ 02 CT L-Spine: Radiologist's impression: [place] [address] CT Scan Report Signed Patient: Renny Matos #: [id number] : 2Acct#:[id number] Age/Sex: 79 / MADM Date: 01/12/20 Loc: [facility]/Bed: Attending Dr: Ordering Provider/Ordering MD: Bright Aden DO Date of Service: 01/12/20 Procedure(s): CT lumbar spine w con [id number] Accession Number(s): [id number] Report Number: [id number] PROCEDURE INFORMATION: Exam: CT Lumbar Spine With Contrast Exam date and time: 01/12/2020 9:18 PM Age: 79 years old Clinical indication: Low back pain; Prior surgery; Surgery date: Post-operative (0-2 days); Surgery type: Laminotomy; Patient HX: Post op pain - elev wbc and AMS; Additional info: Post op delirium with elevated wbc TECHNIQUE: Imaging protocol: Computed tomography images of the lumbar spine with intravenous contrast. Total DLP: 2490.89 mGy-cm Radiation optimization: All CT scans at this facility use at least one of these dose optimization techniques: automated exposure control; mA and/or kV adjustment per patient size (includes targeted exams where dose is matched to clinical indication); or iterative reconstruction. Contrast material: OMNI 300; Contrast volume: 95 ml; Contrast route: 18G; COMPARISON: [place] [id number] 11/19/2019 9:09 AM FINDINGS: Right L3 laminotomy changes are appreciated. Mild to moderate degenerative changes are again seen in the lumbar spine. Posterior bulging annulus and ligamentum flavum hypertrophy cause moderate to severe canal stenosis at L4-L5. No acute fracture. Spinal alignment is normal. A small amount of intradural air is seen at the L2-L3 level which is likely related to recent surgery. Mild stranding and a small amount of subcutaneous air are seen in the paraspinal soft tissues at the L2 and L3 levels. No enhancing fluid collection is seen to suggest an abscess. CT/CT lumbar spine w con [id number] IMPRESSION: Postoperative changes at the L3 level, see above. No abscess is seen. Radiation Dose CTDIVOL = (mGy): DLP = 2490.89 (mGy-cm) Dictated By:Valentin Diallo MD Signed By:Valentin Diallo MDSigned Date/Time:01/12/202154 DD/ 53 Discharge Plan Discharge Patient Disposition: Admitted As Inpatient Admit Provider: Lizeth Cline Clinical Impression: Delirium, Lumbar stenosis with neurogenic claudication, Parkinson's disease, Closed fracture of neck of left humerus Condition: Stable Referrals: Jan Pendleton DO [Physician] - (follow-up with Dr. Pendleton in 3 weeks in the office for repeat x-rays of the left shoulder Call [phone] for appointment) Discharge Date/Time: 01/12/20 23:08 Coding Level of Care Code ED Juice Standardizer for Chg Fwd Exam Comprehensive The documentation recorded by the Ayesha garcia Carmen, accurately reflects the service I personally performed and the decisions made by Keiko miramontes Curtis L, DO Jan 12, 2020 16:31
--- NOTE | 2020-01-12 17:04 | CTR_ITS ---
PROCEDURE INFORMATION: Exam: CT Head Without Contrast Exam date and time: 01/12/2020 5:16 PM Age: 79 years old Clinical indication: Altered mental status/memory loss; Confusion or disorientation; Patient HX: AMS after lumbar laminotomy on 01-10 TECHNIQUE: Imaging protocol: Computed tomography of the head without contrast. Total DLP: 1438.63 mGy-cm Radiation optimization: All CT scans at this facility use at least one of these dose optimization techniques: automated exposure control; mA and/or kV adjustment per patient size (includes targeted exams where dose is matched to clinical indication); or iterative reconstruction. COMPARISON: CT head wo con* [id number] 10/19/2019 6:39 PM FINDINGS: Brain: Mild atrophy and mild white matter chronic microvascular changes are noted. No hemorrhage or CT evidence of acute infarction is seen. Ventricles: Normal. No ventriculomegaly. Bones/joints: Unremarkable. No acute fracture. Sinuses: Visualized sinuses are unremarkable. No fluid levels. Mastoid air cells: Visualized mastoid air cells are well aerated. Soft tissues: Unremarkable. CT/CT head wo con* [id number] IMPRESSION: No acute intracranial abnormality. Radiation Dose CTDIVOL = (mGy): DLP = 1438.63 (mGy-cm)
--- NOTE | 2020-01-12 17:04 | XR_ITS ---
WS: [id number] XR chest 1V portable [id number] REASON FOR EXAM: dyspnea/cough FINDINGS: Off the right hilum is a nodular density measures 2.679 cm. This lesion is slightly irregul ar in outline follow-up evaluation is recommended and consideration of CT or rule out a tumor. The heart and mediastinum are normal. The lung bailey are adequately aerated unchanged since previous exam October 19, 2019. XR/XR chest 1V portable [id number] IMPRESSION: Nodular density is seen off the hilum measures 2.75 cm The remaining chest is normal.
[2020-01-12 17:23] LABS: Basophils % 0.1 %; Hematocrit 33.8 % (42.0-52.0); Hemoglobin 11.2 g/dL (11.7-16.6); Lymphocytes # 0.8 10^3/uL (0.8-4.8); Lymphocytes % 5.9 %; Mean Corpuscular HGB Conc 33.1 g/dL (30.0-36.0); Mean Corpuscular Hemoglobin 30.5 pg (28.0-34.0); Mean Corpuscular Volume 92.1 fL (80-94); Mean Platelet Volume 10.8 fL (7.4-10.4); Monocytes # 1.5 10^3/uL (0.2-0.9); Monocytes % 10.8 %; Neutrophils # 11.2 10^3/uL (1.8-7.7); Neutrophils % 82.8 %; Nucleated Red Blood Cells % 0 %; Platelet Count 128 10^3/cmm (130-400); Red Blood Count 3.67 10^6/uL (4.1-5.3); Red Cell Distribution Width 12.2 % (12.1-15.1); White Blood Count 13.5 10^3/uL (4.0-10.0)
[2020-01-12 17:26] LABS: ABG PCO2 32.4 mmHg (35-45); ABG PH Result 7.49 (7.35-7.45); Alveolar-Arterial Oxygen Gradi 79.8 mmHg (5-10); Arterial Blood Gas Hematocrit 37.5 % (42-52); Base Excess ABG 1.6 mmol/L (-2.0-2.0); Blood Gas Allen Test Pos; Blood Gas Sample Site Radial, right; Blood Gas Sample Type Arterial; Carboxyhemoglobin 0.9 %THgb (0.4-20.1); HCO3 ABG 24.5 mmol/L (22-26); HGB O2 Sat 95.5 % (95-100); Ionized Calcium Level - ABG 1.1 mmol/L (1.1-1.4); Methemoglobin 0.6 % (0.4-1.5); Oxygen Device NC; PO2 ABG 77.6 mmHg (80.0-100.0); Potassium Level - ABG 3.9 mmol/L (3.5-5.0); Total Hemoglobin 12.2 g/dL (14-18)
[2020-01-12 17:42] LABS: Alanine Aminotransferase < 5 U/L (0-41); Albumin Level 3.4 g/dL (3.5-5.2); Alkaline Phosphatase 101 IU/L (40-130); Aspartate Amino Transferase 19 U/L (0-40); Blood Urea Nitrogen 12 mg/dL (8-23); Calcium 8.9 mg/dL (8.5-10.5); Carbon Dioxide 23 mmol/L (22-29); Chloride 97 mmol/L (98-107); Glucose 115 mg/dL (65-115); Lipase 5 U/L (13-60); Sodium 132 mmol/L (136-145); Total Bilirubin 0.5 mg/dL (0.15-1.2); Total Protein 6.4 g/dL (6.6-8.7)
[2020-01-12 17:43] LABS: Ketone (Acetest) Serum Negative (Negative)
[2020-01-12 17:44] LABS: Troponin(5th) Baseline 15 ng/mL (0-15)
[2020-01-12 18:03] LABS: Influenza A by IFA Negative (Negative); Influenza B by IFA Negative (Negative)
[2020-01-12 18:06] LABS: Add Urine Microscopic? YES; Bilirubin Urine Neg (NEGATIVE); Blood Urine 2+ (Negative); Glucose Urine UA Norm (Normal); Ketones Urine 1+ (Negative); Leukocyte Esterase Urine Negative (Negative); Nitrate Urine Negative (Negative); Protein Urine Neg (Negative); Urine Appearance Clear (CLEAR); Urine Color Yellow (Yellow); Urobilinogen Urine Norm (Negative); pH Urine 5 (5-7)
[2020-01-12 18:18] LABS: Add Urine Culture? No; Bacteria Urine TRACE; Mucus Urine TRACE; Squamous Epithelial Cell Urine RARE (0-5)
--- NOTE | 2020-01-12 19:05 | ECG_ITS ---
Measurements Intervals [place] Rate: 85 P: 27 KS: 155 QRS: -28 QRSD: 145 T: 9 QT: 401 QTc: 479 SINUS RHYTHM RIGHT BUNDLE BRANCH BLOCK Left axis deviation Compared to ECG 01/12/2020 17:38:07 No significant change Electronically Signed On 01-13-2020 13:16:23 HIRED HAND by Pauline Chiu M.D. [email or web address]
[2020-01-12 19:55] LABS: Troponin 5 2HR 16.53 ng/mL (0-15)
[2020-01-12 20:00] LABS: Troponin 5 2HR Delta 1.53 ABS# (0-10)
--- NOTE | 2020-01-12 20:39 | CTR_ITS ---
PROCEDURE INFORMATION: Exam: CT Lumbar Spine With Contrast Exam date and time: 01/12/2020 9:18 PM Age: 79 years old Clinical indication: Low back pain; Prior surgery; Surgery date: Post-operative (0-2 days); Surgery type: Laminotomy; Patient HX: Post op pain - elev wbc and AMS; Additional info: Post op delirium with elevated wbc TECHNIQUE: Imaging protocol: Computed tomography images of the lumbar spine with intravenous contrast. Total DLP: 2490.89 mGy-cm Radiation optimization: All CT scans at this facility use at least one of these dose optimization techniques: automated exposure control; mA and/or kV adjustment per patient size (includes targeted exams where dose is matched to clinical indication); or iterative reconstruction. Contrast material: OMNI 300; Contrast volume: 95 ml; Contrast route: 18G; COMPARISON: [place] [id number] 11/19/2019 9:09 AM FINDINGS: Right L3 laminotomy changes are appreciated. Mild to moderate degenerative changes are again seen in the lumbar spine. Posterior bulging annulus and ligamentum flavum hypertrophy cause moderate to severe canal stenosis at L4-L5. No acute fracture. Spinal alignment is normal. A small amount of intradural air is seen at the L2-L3 level which is likely related to recent surgery. Mild stranding and a small amount of subcutaneous air are seen in the paraspinal soft tissues at the L2 and L3 levels. No enhancing fluid collection is seen to suggest an abscess. CT/CT lumbar spine w con [id number] IMPRESSION: Postoperative changes at the L3 level, see above. No abscess is seen. Radiation Dose CTDIVOL = (mGy): DLP = 2490.89 (mGy-cm)
[2020-01-12] MEDS: iohexol 300 mg/mL 100 mL Btl IV (21:39)
--- NOTE | 2020-01-12 22:35 | XR_ITS ---
WS: [id number] XR forearm RT 2V [id number] REASON FOR EXAM: arm pain FINDINGS: The ulna and radius are normal. A catheter seen overriding the radius at the wrist. There is no fractures or other dyscrasias seen. There is mild soft tissue swelling deformity over the radius mild infiltration cannot be excluded. XR/XR forearm RT 2V [id number] IMPRESSION: No bony changes of the ulna and radius are forearm Questionable fluid infiltration overriding the distal radius clinical correlati on recommended.
--- NOTE | 2020-01-12 22:36 | XR_ITS ---
WS: [id number] [place] [id number] REASON FOR EXAM: arm pain FINDINGS: Impacted surgical neck fracture of the humerus. The distal humerus was normal. No soft tissue masses are seen. XR/[place] [id number] IMPRESSION: Impacted surgical neck fracture of the left humerus.
--- NOTE | 2020-01-12 23:05 | ECG_ITS ---
Measurements Intervals [place] Rate: 87 P: 33 PA: 172 QRS: -34 QRSD: 130 T: 14 QT: 387 QTc: 466 SINUS RHYTHM LEFT AXIS DEVIATION [QRS AXIS < -30] RIGHT BUNDLE BRANCH BLOCK [120+ ms QRS DURATION, UPRIGHT V1, 40+ ms S IN I/aVL/V4/V5/V6] Compared to ECG 10/19/2019 19:04:29 Ventricular premature complex(es) no longer present Myocardial infarct finding no longer present Electronically Signed On 01-12-2020 19:31:10 GLOBAL SECURITY ARCHITECT by Pauline Chiu M.D. [email or web address]
[2020-01-12] MEDS: morphine 4 mg/mL SDV 1 mL 2 MG IVP (23:41)
[2020-01-12] MEDS: D5-NS 0.45% + KCL 20 mEq 20 MEQ/1,000 ML BAG 100 MEQ IV (23:43)
[2020-01-13] VITALS (30 sets, daily range): BP systolic 115–175; BP diastolic 68–95; PULSE 75–85; RESP 15–26; TEMP 36.4–37.7; O2SAT 91–95
[2020-01-13] LABS: Troponin 5 6HR 17.55 ng/mL (0-15); Troponin 5 6HR Delta 2.55 ng/L (0-12)
--- NOTE | 2020-01-13 01:42 | P.HP_ITS ---
Providers/Chief Complaint Admitting Physician: Lizeth Cline MD Primary Care Provider: Gautam Godoy Chief Complaint: AMS S/P BACK SURGERY History of Present Illness Renny Matos is a 79 year old male with past medical history of Parkinson's disease, lumbar stenosis with neurogenic claudication, prostate cancer currently GIANNI, hyperlipidemia, GERD, hypertension, irritable bowel syndrome, chronic bronchitis/COPD, CAD, obesity. Patient recently underwent bilateral L3-L4 laminectomy for lumbar stenosis by Dr. Foley on January 10, 2020 and subsequently discharged on January 11 with no immediate postop complications. He returned to the ED today after being noted by his family to be more confused starting this afternoon. Per his daughter he went to bed at around 10 AM to t herb enough and then when he woke up at 12, he was noted to be more lethargic, confused, could not recognize his daughters at bedside and was speaking in sentences that did not make sense. He did attempt get up but appeared to be uncoordinated. He was still able to move all of his arms and legs, though his movement in bilateral lower extremities has been somewhat limited since the surgery. He was brought to the ED because of this change in mental status. Diagnostics in the ER showed CT head at 7 PM with no acute intracranial abnormality. CT lumbar spine showed postoperative changes at the L3 level. There is leukocytosis of 13.5, 128 ABG showed pH 7.49/CO2 32.4/PO2 of 77.6. Troponins were unremarkable. UA was negative for leuk esterase, WBCs. Had any history of fever since returning home and has remained afebrile. Blood pressure has been stable. Not been on any opiates at home. He is taking tramadol for pain control at his baseline dosing. Influenza A swab was negative. Chest x- ray does not show any acute consolidation. There has been no recent changes to his home medications. Review of Systems General: Reports: 10 or more systems reviewed and unremarkable except in HPI and below Const: Denies: fever, chills or body aches Eyes: Denies: change in vision, blurry vision or photophobia ENMT: Reports: hoarseness; Denies: throat pain, enlarged tonsils, painful swallowing or nasal congestion Card: Denies: chest pain, palpitations, irregular heart rhythm, edema, swelling of feet/ankles, lightheadedness, pre-syncope, shortness of breath on exertion or shortness of breath when lying down Resp: Denies: shortness of breath, productive cough, non-productive cough, wh eezing, stridor, pain on inspiration, change in phlegm color, coughing up blood or chest congestion GI: Denies: abdominal pain, nausea, vomiting, vomiting blood, coffee grounds in vomit, difficulty swallowing, heartburn/indigestion, diarrhea, constipation, cramping, change in stool character, blood in stool or black tarry stool : Denies: flank pain, painful urination, urinary frequency, urinary urgency, urinary hesitancy or blood in urine Musc: Denies: neck pain, back pain, extremity pain, joint swelling, joint warmth or deformity Neuro: Denies: headache, numbness in extremities, weakness in extremities, changes in sensation, difficulty walking, frequent falls, dizziness, vertigo, behavioral changes, slurred speech or seizure-like activity Psych: Denies: anxiety, depression, suicidal ideation or homicidal ideation Endo: Denies: excessive urination, excessive thirst, tired all the time, cold intolerance or hot flashes Griffin/Lymph: Denies: easy bruising or easy bleeding Medications/Allergies Allergies Allergy/AdvReac Type Severity Reaction Status Date / Time hydrocodone Allergy HALLUCINATI Verified 01/10/20 06:18 ONS zonisamide [From Zonegran] Allergy HIVES Verified 01/10/20 06:18 metoprolol AdvReac BRADYCARDIA Verified 01/10/20 06:18 Penicillins AdvReac UNKNOWN Verified 01/10/20 06:18 pravastatin AdvReac MUSCLE PAIN Verified 01/10/20 06:18 PFSH Acute PFSH: Medical History Intervertebral disc disorders with radiculopathy, 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 Grandmother CAD (coronary artery disease) Cancer Myocardial infarct Family/Other Hypertension Social History Smoking and tobacco status: never smoked Alcohol intake: never Marital status: / Current occupational status: retired History of recent travel: No Vitals/I&O/Wt Last Vital Signs Temp 99.8 F H 01/13/20 00:00 Pulse 82 01/13/20 00:45 Resp 20 H 01/13/20 00:45 BP 128/74 01/13/20 00:45 Pulse Ox 94 01/13/20 00:45 Weight last 48 hrs Weight 82.554 kg Physical Exam Narrative: EXAM NARRATIVE: GEN: Asleep when first seen, wakes up easily to calling name. He is able to correctly tell me his name age date of and the fact that he is in the hospital. However he just states being back in the hospital without specifically being able to tell me the name or location of this hospital. He is able to correctly tell me his address lysing his daughter at bedside and is able to recall the name of his other daughter as well. He is however intermittently confused and thinks he is at the [place] where his is buried. He also talks about being in [facility] yesterday while he was home all day. he was able to tolerate po intake and swallow without any difficulty CVS: S1S2 N RS: CTA B/L Abd: Soft, nt/nd , bs+ FOREIGN EXCHANGE POSITION CLERK: Confusion as noted above in general. He is able to move bilateral upper and lower extremities in bed. Extremity testing is limited in the lower extremities due to pain and recent postop state. Data : 01/12/20 17:18 01/12/20 17:18 A&P Assessment and plan (1) Lumbar disc disease with radiculopathy: Status: Acute Code(s): M51.16 - Intervertebral disc disorders with radiculopathy, lumbar region (2) Parkinson's disease: Status: Chronic Code(s): G20 - Parkinson's disease (3) Delirium: Status: Acute Code(s): R41.0 - Disorientation, unspecified Additional A&P Information Admit to ICU in view of postop delirium. Patient's current neurocognitive impairment postoperatively with waxing and waning mentation mentation appears clinically consistent with postoperative delirium. Patient has risk factors for the above by way of older age, sleep disruption, dehydration due to poor po intake, underlying Parkinson's. CT head is negative for any acute intracranial abnormalities. We will check TSH and a.m. cortisol levels, the probability of this is less likely given the patient does not previously have a history of hypothyroidism or hemodynamic and electrolyte abnormalities to suggest adrenal insufficiency. Neuro checks every 4 hours while in the ICU Avoid opiates Iv hydration with NS @ 100cc/hr UA negative for infection, no h/o fever, CXR read pending but no evidence of consolidation per my interpretation, therfore no overt concern for sepsis at this time Continue home Parkinson's medications. Hold lyrica for now. DVT ppx: lovenox Full code Attestations Medical Necessity Statement*: Anticipate >2MN admission for evaluation and management of post op delirium Coding Level of Care Code Acute Creative Recruiter for Chg Fwd Diagnoses Lumbar disc disease with radiculopathy M51.16 Parkinson's disease G20 Delirium R41.0
[2020-01-13] MEDS: sodium chloride 0.9% 1,000 ML 75 ML IV ×2 (02:40→12:47)
[2020-01-13 04:58] LABS: Basophils % 0.2 %; Eosinophils % 0.4 %; Hematocrit 31.8 % (42.0-52.0); Hemoglobin 10.5 g/dL (11.7-16.6); Lymphocytes # 1.2 10^3/uL (0.8-4.8); Lymphocytes % 11.4 %; Mean Corpuscular Hemoglobin 30.3 pg (28.0-34.0); Mean Corpuscular Volume 91.6 fL (80-94); Mean Platelet Volume 11.2 fL (7.4-10.4); Monocytes # 1.1 10^3/uL (0.2-0.9); Monocytes % 11.2 %; Neutrophils # 7.7 10^3/uL (1.8-7.7); Neutrophils % 76.5 %; Nucleated Red Blood Cells % 0 %; Platelet Count 136 10^3/cmm (130-400); Red Blood Count 3.47 10^6/uL (4.1-5.3); Red Cell Distribution Width 12.1 % (12.1-15.1); White Blood Count 10.1 10^3/uL (4.0-10.0)
[2020-01-13 05:32] LABS: Alanine Aminotransferase 14 U/L (0-41); Albumin Level 3.1 g/dL (3.5-5.2); Alkaline Phosphatase 94 IU/L (40-130); Anion Gap 14.6 (5-19); Aspartate Amino Transferase 16 U/L (0-40); Blood Urea Nitrogen 12 mg/dL (8-23); Calcium 8.7 mg/dL (8.5-10.5); Carbon Dioxide 24 mmol/L (22-29); Chloride 98 mmol/L (98-107); Glucose 129 mg/dL (65-115); Potassium 3.6 mmol/L (3.5-5.1); Sodium 133 mmol/L (136-145); Total Bilirubin 0.6 mg/dL (0.15-1.2); Total Protein 6.1 g/dL (6.6-8.7)
[2020-01-13 05:33] LABS: Thyroid Stimulating Hormone 1.35 uIU/mL (0.27-4.20)
[2020-01-13] MEDS: TRAMadol 50 mg Tablet PO ×3 (06:40→17:30)
[2020-01-13] MEDS: carbidopa-levodopa 25-100mg Tablet 1 EACH PO ×4 (08:34→21:14)
[2020-01-13] MEDS: amlodipine 10 mg Tablet PO (08:34)
[2020-01-13] MEDS: acetaminophen 325 mg Tablet 650 MG PO (08:36)
[2020-01-13 08:44] LABS: Vitamin B12 348 pg/mL (232-1245)
--- NOTE | 2020-01-13 11:51 | PC.CHAP ---
Pastoral Care Encounter/Spiritual Assessment Type of Contact [] Declined protective signal repairer visit [] Patient/Family/Request visit [] Outpatient visit [] Follow-up visit [] Physician referral [] Code/Alert [] Routine visit [] Staff referral [] Actively dying [] Patient sleeping [] Family support [] [] Out of room [] Palliative care [] [] Receiving care in room [] Pre-surgical visit [] Trauma [] Long length of stay [] ICU visit [] Other: Relational/Emotional Strength [] Patient feels connected with others/family/visitors/staff [] Distress [] Loneliness/isolation [] Abandonment Spirituality of Patient [] Person of Gerda [] Attends Judaism of their Gerda [] Believes in Prayer [] Reads Bible or Tenriism materials [] There are Spiritual issues to be addressed Optical Mechanic Interventions [] Prayer [] Active listening [] Non-anxious presence [] Spiritual/emotional support [] Crisis/trauma care [] Spiritual counseling [] Bereavement support [] Provided bereavement packet [] Provided Bible/devotional materials [] Provided toy/stuffed animal, coloring book to patient or family member [] Provided Communion [] Anointing/[place] [] Salvation [] Completed spiritual assessment [] Other: Impact on Illness or Injury [] Angry [] Fearful [] Anxious [] Often cries [] Exhaustion [] Unable to work [] Unable to attend evangelical [] Unable to walk/stand [] Unable to read [] Unable to drive [] Unable to eat/drink [] Unable to sleep [] Unable to be with family [] Patient intubated [] Other: Summary Follow-up, patient sleeping. Time spent with patient
[2020-01-13] MEDS: lidocaine 5% Patch 1 PATCH TOPICAL ×2 (12:56→21:15)
--- NOTE | 2020-01-13 15:13 | PC.NURSE ---
Patient transferred to [facility]. Family at bedside. Report called to ROMAN Corrales. All belongings sent with patient.
--- NOTE | 2020-01-13 16:11 | PM.CONSULT ---
Providers/Reason For Consult Consulting Physican/Specialty*: Jan Pendleton D.O.: Orthopedic surgery Reason for Consult*: right shoulder pain Attending Physician: Mike Cali Primary Care Provider: Gautam Godoy History of Present Illness History of Present Illness Renny Matos is a 79 year old male Review of Systems General: Reports: ROS unobtainable due to mental status Meds/Allergies Home Medications and Allergies Home Medications Medication Instructions Recorded Confirmed Type amlodipine 10 mg tablet 5 mg PO ONCE 12/05/19 01/10/20 History carbidopa 25 mg-levodopa 100 mg 1 tab PO QID 12/05/19 01/10/20 History disintegrating tablet citalopram 40 mg tablet 20 mg PO ONCE 12/05/19 01/10/20 History dicyclomine 10 mg capsule 20 mg PO ONCE cap 12/05/19 01/10/20 History losartan 100 mg tablet 50 mg PO ONCE 12/05/19 01/10/20 History primidone 50 mg tablet 100 mg PO BEDTIME tab 12/05/19 01/10/20 History ranitidine HCl 300 mg tablet 300 mg PO BID 12/05/19 01/10/20 History lidocaine HCl 1 tbsp PO QID PRN 01/09/20 01/10/20 History pregabalin 75 mg PO DAILY 01/09/20 01/10/20 History tramadol 50 mg PO BID PRN 01/09/20 01/09/20 History Allergies Allergy/AdvReac Type Severity Reaction Status Date / Time hydrocodone Allergy HALLUCINATI Verified 01/10/20 06:18 ONS zonisamide [From Zonegran] Allergy HIVES Verified 01/10/20 06:18 metoprolol AdvReac BRADYCARDIA Verified 01/10/20 06:18 Penicillins AdvReac UNKNOWN Verified 01/10/20 06:18 pravastatin AdvReac MUSCLE PAIN Verified 01/10/20 06:18 Current Medications Current Medications Generic Name Dose Route Start Last Admin Trade Name Freq PRN Reason Stop Dose Admin Acetaminophen 650 mg 01/12/20 23:19 01/13/20 08:36 Tylenol PO 650 mg Q6H PRN Administration Mild/Mod Pain Or Temp >/= 101 Amlodipine Besylate 10 mg 01/13/20 09:00 01/13/20 08:34 Norvasc PO 10 mg DAILY LISBET Administration Carbidopa/Levodopa 1 each 01/13/20 09:00 01/13/20 12:47 Sinemet PO 1 each QID LISBET Administration Lidocaine 1 patch 01/13/20 13:00 01/13/20 12:56 Lidoderm 5% Patch TOPICAL 1 patch [id number] LISBET Administration Tramadol HCl 50 mg 01/13/20 02:38 01/13/20 12:55 Ultram PO 50 mg Q4H PRN Administration MODERATE PAIN PFSH Acute PFSH: Medical History Intervertebral disc disorders with radiculopathy, 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 Grandmother CAD (coronary artery disease) Cancer Myocardial infarct Family/Other Hypertension Social History Smoking and tobacco status: never smoked Alcohol intake: never Marital status: / Current occupational status: retired History of recent travel: No Vitals/I&O/Wt Last Vital Signs Temp 98.3 F 01/13/20 08:00 Pulse 75 01/13/20 14:00 Resp 25 H 01/13/20 14:00 BP 147/71 01/13/20 15:00 Pulse Ox 93 01/13/20 14:00 01/13/20 01/13/20 01/13/20 06:59 14:59 22:59 Intake Total 303.333 / 747.452 0934.75 / 1238.75 Output Total 200 / 200 Balance 103.333 / 524.340 6631.75 / 1238.75 Weight last 48 hrs Weight 182 lb Physical Exam Narrative: EXAM NARRATIVE: 79-year-old white male presently in ICU bed 2 Patient is pleasantly confused. He has family members present. There is no history related of time of potential trauma of the left shoulder He has x-rays taken that show glenohumeral joint arthritis of left shoulder, acromioclavicular joint arthritis and impacted fracture of the left humeral surgical neck of indeterminate age. On his skin he has no complaints of bruising. He has mild complaints of discomfort with motion of his left shoulder. Hand travel registered nurse pacu is strong Digits are warm with normal capillary refill.. No clubbing or cyanosis or edema Lungs are clear to auscultation Heart is regular rate rhythm Abdomen soft nontender A&P Assessment and plan (1) Closed fracture of neck of left humerus: based on the patient's inability to provide a good history and his family unable to provide potential timing were witnessing a specific injury it is unclear if the patient's impacted left humeral neck fracture is acute or old. He has no bruising at the present time. He has pain with range of motion of the shoulder which could be due to a minor contusion without bruising affecting his arthritic left shoulder. Plan will be to see the patient the office in 3 weeks' time to reassess. If he develops bruising this is an acute fracture if he does not develop any bruising or simply treating a minor contusion with underlying osteoarthritis of the shoulder. If her dealing with arthritis of the shoulder consideration could be given to a steroid injection at his next visit in the orthopedic clinic Status: Acute Qualifiers: Encounter type: initial encounter Qualified Code(s): S42.212A - Unspecified displaced fracture of surgical neck of left humerus, initial encounter for closed fracture Code(s): S42.212A - Unspecified displaced fracture of surgical neck of left humerus, initial encounter for closed fracture (2) Osteoarthritis of right glenohumeral joint: Status: Acute Code(s): M19.011 - Primary osteoarthritis, right shoulder (3) Arthritis of left acromioclavicular joint: Status: Acute Code(s): M19.012 - Primary osteoarthritis, left shoulder Coding Level of Care Code New Pt Acute Actuary for Krystyna Antony Patient Type New Diagnoses Closed fracture of neck of left humerus S42.212A Encounter type: initial encounter Osteoarthritis of right glenohumeral joint M19.011 Arthritis of left acromioclavicular joint M19.012 Time Spent (min) 30 Comment Unclear if patient's fracture is acute or old. Do not bill fracture at this time.
--- NOTE | 2020-01-13 17:35 | PM.PN ---
Subjective Subjective: Interval history: On my assessment he wakes up easily, reports that he is comfortable apart from pain in the lower back, he is oriented x3. Per discussion with his family he is certainly much better than he was yesterday, although still not back entirely to baseline. Still having issues recalling certain things. On discussion of whether he may have some chronic symptoms of cognitive dysfunction or dementia, he states he is usually functional, knows where he is at incapable of caring for himself, although occasionally forgets the days of the week or month. They are worried that this may be part of chronic illness, perhaps Parkinson's. Vitals/I&O/Wt Last Vital Signs Temp 97.6 F 01/13/20 16:00 Pulse 78 01/13/20 16:00 Resp 16 01/13/20 16:00 BP 165/76 01/13/20 16:00 Pulse Ox 95 01/13/20 16:00 01/13/20 01/13/20 01/13/20 06:59 14:59 22:59 Intake Total 303.333 / 947.082 7491.75 / 1238.75 Output Total 200 / 200 Balance 103.333 / 298.198 2799.75 / 1238.75 Weight last 48 hrs Weight 82.554 kg Physical Exam Const: COMMON NORMALS: no apparent distress and oriented x3 HENMT: COMMON NORMALS: oropharynx normal Neck/C-Spine: COMMON NORMALS: no JVD Resp: COMMON NORMALS: normal respiratory effort and clear to auscultation bilaterally AUSCULTATION: clear to auscultation bilaterally Cardio: COMMON NORMALS: no JVD, regular rhythm, S1 normal heart sound, S2 normal heart sound and no murmurs RHYTHM: regular rhythm HEART SOUNDS: S1 normal and S2 normal GI: COMMON NORMALS: normal to inspection, nondistended, normoactive bowel sounds, soft to palpation and non-tender PALPATION: Yes soft Extremity: COMMON NORMALS: no joint enlargement and no pedal edema Neuro: COMMON NORMALS: oriented x3 and moves all extremities Skin: COMMON NORMALS: no rashes or lesions noted GENERAL SKIN EXAM: no rashes or lesions noted Data : 01/13/20 04:29 01/13/20 04:29 A&P Assessment and plan (1) Delirium: This appears to be resolving. No clear cause on fairly extensive work-up so far, appears to be most likely related to his recent surgery and anesthesia, most likely superimposed on his high risk for delirium with chronic illness with Parkinson's disease, perhaps mild cognitive decline versus early dementia. He is also found to have left humerus surgical neck impacted fracture and it is unclear when he may have sustained. He was confused at home, although family have not seen a fall. Pain from the fracture likely was contributing to his confusion as he was not bothered by it for a large part of the day today. Discussed with his family. We will monitor him to make sure he does not worsen again as he got worse after returning home during recent discharge. Status: Acute Code(s): R41.0 - Disorientation, unspecified (2) Lumbar disc disease with radiculopathy: Status post laminectomy and discharge 01/11. Notify Dr. Foley that he is in the hospital. Status: Acute Code(s): M51.16 - Intervertebral disc disorders with radiculopathy, lumbar region (3) Parkinson's disease: Continue Sinemet. Status: Chronic Code(s): G20 - Parkinson's disease (4) Closed fracture of neck of left humerus: Appreciate orthopedic recommendations. In light of recent back surgery with laminectomy, as well as now left humerus fracture with pain, with both limiting his mobility, he could benefit from rehabilitation at SNF. Discussed with family will request discharge planning to look into this. Alternatively if returning home may need hospital bed and possibly other equipment due to limited mobility and risk of falling. Status: Acute Qualifiers: Encounter type: initial encounter Qualified Code(s): S42.212A - Unspecified displaced fracture of surgical neck of left humerus, initial encounter for closed fracture Code(s): S42.212A - Unspecified displaced fracture of surgical neck of left humerus, initial encounter for closed fracture Attestations Medical Necessity Statement*: Continue admission versus management of post operative/post anesthesia delirium. Coding Level of Care Code Acute Broadcast Field Supervisor for g Fwd Exam Comprehensive Diagnoses Delirium R41.0 Lumbar disc disease with radiculopathy M51.16 Parkinson's disease G20 Closed fracture of neck of left humerus S42.212A Encounter type: initial encounter
[2020-01-13] MEDS: losartan 50 mg Tablet 100 MG PO (21:14)
[2020-01-13] MEDS: famotidine 20 mg Tablet PO (21:14)
[2020-01-13] MEDS: primidone 50 mg Tablet 100 MG PO (21:14)
[2020-01-14] VITALS (10 sets, daily range): BP systolic 118–182; BP diastolic 51–91; PULSE 64–80; RESP 16–20; TEMP 36.4–37.4; O2SAT 70–95
[2020-01-14] MEDS: acetaminophen 325 mg Tablet 650 MG PO ×2 (06:11→16:42)
[2020-01-14 06:17] LABS: Basophils % 0.3 %; Eosinophils # 0.2 10^3/uL (0.0-0.8); Eosinophils % 2.6 %; Hematocrit 32.8 % (42.0-52.0); Hemoglobin 11.1 g/dL (11.7-16.6); Lymphocytes # 1.2 10^3/uL (0.8-4.8); Mean Corpuscular HGB Conc 33.8 g/dL (30.0-36.0); Mean Corpuscular Hemoglobin 30.7 pg (28.0-34.0); Mean Corpuscular Volume 90.6 fL (80-94); Mean Platelet Volume 10.5 fL (7.4-10.4); Monocytes # 0.7 10^3/uL (0.2-0.9); Monocytes % 8.8 %; Neutrophils # 5.7 10^3/uL (1.8-7.7); Nucleated Red Blood Cells % 0 %; Platelet Count 146 10^3/cmm (130-400); Red Blood Count 3.62 10^6/uL (4.1-5.3); Red Cell Distribution Width 11.9 % (12.1-15.1); White Blood Count 7.8 10^3/uL (4.0-10.0)
[2020-01-14 06:38] LABS: Alanine Aminotransferase 15 U/L (0-41); Albumin Level 2.8 g/dL (3.5-5.2); Alkaline Phosphatase 90 IU/L (40-130); Anion Gap 15.7 (5-19); Aspartate Amino Transferase 49 U/L (0-40); Blood Urea Nitrogen 10 mg/dL (8-23); Calcium 8.9 mg/dL (8.5-10.5); Carbon Dioxide 23 mmol/L (22-29); Chloride 100 mmol/L (98-107); Globulin 3.3 g/dL (1.3-4.6); Glucose 135 mg/dL (65-115); Potassium 3.7 mmol/L (3.5-5.1); Sodium 135 mmol/L (136-145); Total Bilirubin 0.6 mg/dL (0.15-1.2); Total Protein 6.1 g/dL (6.6-8.7)
--- NOTE | 2020-01-14 09:09 | CT_ITS ---
WS: [id number] CT HEAD TECHNIQUE: Noncontrast CT of the head obtained from the skullbase to the vertex. CLINICAL INFORMATION: stroke alert COMPARISON: January 12, 2020 DLP: 713.[address] scans at [facility] use at least one of these dose optimization techniques: automat ed exposure control; mA and/or kV adjustment per patient size (includes targeted exams where dose is matched to clinical indication); or iterative reconstruction. FINDINGS: No evidence of intracranial hemorrhage or mass effect. Ventricular system and basal cisterns are epperson nt. Mild small vessel changes with moderate parenchymal volume loss. No extra-axial fluid collections . No evidence of mass or mass effect. Normal howell-white differentiation. Paranasal sinuses and mastoid air cells are well aerated. .Normal visualized soft tissues. CT/CT head wo con* [id number] IMPRESSION: 1. No evidence of intracranial hemorrhage or mass effect. 2. Mild small vessel changes. Moderate parenchymal volume loss. 3. No acute intracranial findings.
--- NOTE | 2020-01-14 09:43 | PC.NURSE ---
Stroke Alert Physical therapy in with pt. Pt not responsive to physical therapy requests. Pt assessed by SANJAY Donaldson. Pt awake and sitting up in bed, appeared to have slight facial drooping, not following commands, aphasic, no reaction to painful stimuli. Physician notified, stroke alert called at 0910. Manual BP 172/99. Pt taken to CT.
[2020-01-14 10:21] LABS: Glucose Point of Care 99 mg/dL (70-110)
[2020-01-14] MEDS: amlodipine 10 mg Tablet PO (10:24)
[2020-01-14] MEDS: lidocaine 5% Patch 1 PATCH TOPICAL ×2 (10:24→22:44)
[2020-01-14] MEDS: carbidopa-levodopa 25-100mg Tablet 1 EACH PO ×4 (10:24→22:43)
[2020-01-14] MEDS: sodium chloride 0.9% 1,000 ML 75 ML IV ×2 (10:25→23:53)
--- NOTE | 2020-01-14 11:20 | PC.CHAP ---
Pastoral Care Encounter/Spiritual Assessment Type of Contact [] Declined purchasing specialist visit [] Patient/Family/Request visit [] Outpatient visit [] Follow-up visit [] Physician referral [] Code/Alert [] Routine visit [] Staff referral [] Actively dying [x] Patient sleeping [] Family support [] [] Out of room [] Palliative care [] [] Receiving care in room [] Pre-surgical visit [] Trauma [] Long length of stay [] ICU visit [x] Other: Pt had stroke alert early in morning Relational/Emotional Strength [] Patient feels connected with others/family/visitors/staff [] Distress [] Loneliness/isolation [] Abandonment Spirituality of Patient [] Person of Gerda [] Attends Buddhist of their Gerda [] Believes in Prayer [] Reads Bible or Alevism materials [] There are Spiritual issues to be addressed Marker Assembler Interventions [] Prayer [] Active listening [] Non-anxious presence [] Spiritual/emotional support [] Crisis/trauma care [] Spiritual counseling [] Bereavement support [] Provided bereavement packet [] Provided Bible/devotional materials [] Provided toy/stuffed animal, coloring book to patient or family member [] Provided Communion [] Anointing/[place] [] Salvation [] Completed spiritual assessment [] Other: Impact on Illness or Injury [] Angry [] Fearful [] Anxious [] Often cries [] Exhaustion [] Unable to work [] Unable to attend judaism [] Unable to walk/stand [] Unable to read [] Unable to drive [] Unable to eat/drink [] Unable to sleep [] Unable to be with family [] Patient intubated [] Other: Summary Pt not currently able to have visitors due to possible stroke early in AM. Medical staff present to continuously monitor his condition. NOt appropriate time for purchasing specialist to interrupt for visit. Follow up needed. Marker Assembler Margie Boland Time spent with patient 2 minutes
[2020-01-14] MEDS: aspirin 325 mg Tablet PO (11:31)
--- NOTE | 2020-01-14 15:00 | PM.PN ---
Subjective Subjective: Interval history: Renny had a stroke alert called earlier today. I have visited with his case with nursing, and neurology. He was not thought to be a candidate for TPA. I also discussed his case briefly with Dr. Foley, regarding antiplatelet agents. Aspirin was initiated. Concern this morning was aphasia Medications: Reviewed: Yes Vitals/I&O/Wt Last Vital Signs Temp 98.5 F 01/14/20 11:06 Pulse 64 01/14/20 11:06 Resp 18 01/14/20 11:06 BP 182/91 01/14/20 11:06 Pulse Ox 93 01/14/20 11:06 01/14/20 01/14/20 01/14/20 06:59 14:59 22:59 Intake Total 0 1478.75 Output Total Balance - 1377.75 Weight last 48 hrs Weight 82.554 kg Physical Exam Narrative: EXAM NARRATIVE: General exam no apparent distress Neurologic earlier he was nonverbal, but he has since became verbal. He moves all 4 extremities. NIH scales are documented Cardiovascular regular rate and rhythm with occasional premature beat Lungs clear Abdomen is soft, positive bowel sounds Extremities no cyanosis clubbing or edema. Sling present left upper extremity Data : 01/14/20 06:09 01/14/20 06:09 A&P Assessment and plan (1) Delirium: Recurrence of symptoms today. Cannot exclude TIA/strokelike symptoms. Not candidate for TPA. Will ensure he is on an aspirin, statin. No Plavix, no DVT prophylaxis currently after visiting with neurosurgery regarding the case. Initiate fluids Check echocardiogram, carotid duplex, EKG Neurologic checks Status: Acute Code(s): R41.0 - Disorientation, unspecified (2) Lumbar disc disease with radiculopathy: Status post laminectomy and discharge 01/11. Dr. Foley is aware he is in the hospital Status: Acute Code(s): M51.16 - Intervertebral disc disorders with radiculopathy, lumbar region (3) Parkinson's disease: Continue Sinemet. Status: Chronic Code(s): G20 - Parkinson's disease (4) Closed fracture of neck of left humerus: Appreciate orthopedic consultation Continue sling Will need skilled placement, outpatient follow-up Status: Acute Code(s): S42.212A - Unspecified displaced fracture of surgical neck of left humerus, initial encounter for closed fracture Additional A&P Information TSH and cortisol levels were checked and normal. 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
--- NOTE | 2020-01-14 15:04 | ECG_ITS ---
Measurements Intervals [place] Rate: 78 P: 27 AL: 167 QRS: -32 QRSD: 113 T: 4 QT: 390 QTc: 447 SINUS RHYTHM WITH OCCASIONAL VENTRICULAR PREMATURE COMPLEXES LOW QRS VOLTAGE IN PRECORDIAL LEADS INCOMPLETE RIGHT BUNDLE BRANCH BLOCK INFERIOR MYOCARDIAL INFARCTION, PROBABLY OLD Compared to ECG 01/12/2020 19:12:17 Ventricular premature complex(es) now present Low QRS voltage now present Incomplete right bundle-branch block now present Myocardial infarct finding now present Right bundle-branch block no longer present Left-axis deviation no longer present Electronically Signed On 01-14-2020 21:07:23 PRINT LINE SUPERVISOR by Pauline Chiu M.D. [id number]
--- NOTE | 2020-01-14 15:04 | USCV_ITS ---
Renny Matos Age: 79 Gender: M : 1940 Exam Date: 01/14/2020 15:47 Ordering Phys: Luis Alberto Chan MD Technologist: Noel Polanco [place] [facility] [place]: ? CVA Risk Factors: None Previous Vascular Surgery: None Right Brachial BP: / Left Brachial BP: / Right Left Velocity (cm/s) Spectral Plaque Velocity (cm/s) Spectral Plaque Syst/Diast Broadening Syst/Diast Broadening 93.60/ 14.80 Prox CCA 87.70 / 8.90 101.40/9.40 Mid CCA 91.70 / 9.90 89.70/ 11.70 Distal CCA 86.80 / 8.90 Hetro 71.70/ 13.30 Prox ICA 86.80 / 14.80 Hetro 72.00/ 14.00 Mid ICA 85.80 / 15.80 Hetro 61.60/ 12.50 Distal ICA 89.70 / 15.80 Hetro 70.20 ECA 92.70 0.71 ICA/CCA 0.95 Antegrade Vertebral Antegrade 46.80/ 8.60 cm/s 84.80/ 7.90 cm/s Tri Subclavian Tri 60.00 FINDINGS Moderate heterogeneous plaques of the left bifurcation and the proximal internal carotid artery. Mild to moderate diffuse plaques at the right bifurcation and internal carotid arteries. Intimal thickening in the common carotid artery bilaterally Antegrade flow in the vertebral arteries bilaterally Normal Doppler flow velocities in the external carotid arteries bilaterally CONCLUSIONS Moderate heterogeneous plaques of the left bifurcation and the proximal internal carotid artery. Mild to moderate plaques at the right bifurcation and internal carotid artery No significant stenosis, based on the above findings The study from 04/26/2017, there is slight increase in the plaque densities bilaterally. Dr Julia Silva MD [facility] (Electronically Signed) Final Date: 15 January 2020 20:23 S
--- NOTE | 2020-01-14 15:04 | USCV_ITS ---
Renny Matos Age: 79 Gender: M : 1940 Exam Date: 01/14/2020 15:33 Ordering Phys: Luis Alberto Chan MD Technologist: Noel Polanco Exam Location: [facility] – [place] Indication: ? CVA BP: 130 / 72 HR: 80 Rhythm: Sinus Technical Quality: Very technically difficult study MEASUREMENTS (Male / Female) Normal Values 2D ECHO LV Diastolic Diameter PLAX 2.9 cm 4.2 - 5.9 / 3.9 - 5.3 cm LV Systolic Diameter PLAX 2.1 cm IVS Diastolic Thickness 1.1 cm 0.6 - 1.0 / 0.6 - 0.9 cm IVS Systolic Thickness 1.4 cm LVPW Diastolic Thickness 1.3 cm 0.6 - 1.0 / 0.6 - 0.9 cm LVPW Systolic Thickness 1.5 cm LVOT Diameter 2.1 cm LV Ejection Fraction 2D Teich 58.6 % LA Diameter 4.1 cm LA Width 3.7 cm LA Height 5.1 cm RA Width 3.6 cm RA Height 4.0 cm DOPPLER AV Peak Velocity 218.0 cm/s LVOT Peak Velocity 107.0 cm/s AV Area Cont Eq vti 2.2 cm squared AV Area Cont Eq pk 1.7 cm squared MV Area PHT 2.7 cm squared Mitral E to A Ratio 0.7 MV E' Velocity 8.0 cm/s Mitral E to LV E' Lateral Ratio 8.1 TR Peak Velocity 241.0 cm/s TR Peak Gradient 23.3 mmHg TV Peak E Velocity 144.0 cm/s Right Atrial Pressure 3.0 mmHg Pulmonary Artery Systolic Pressu 26.2 mmHg PV Peak Velocity 99.0 cm/s FINDINGS Left Ventricle Normal left ventricular size and systolic function, EF 60%.no regional wall motion abnormalities. . Grade I/IV diastolic dysfunction (abnormal relaxation filling pattern), normal to mildly elevated filling pressures. Right Ventricle Normal right ventricular size and systolic function. Right Atrium Normal right atrial size. Left Atrium Normal left atrial size. Mitral Valve Thickened mitral valve. Aortic Valve Thickened aortic valve. Aortic valve sclerosis. Tricuspid Valve Could not be visualized well Pulmonic Valve Pulmonic valve not well visualized. Pericardium No pericardial effusion. Aorta Normal aortic annulus size. CONCLUSIONS Normal left ventricular size and systolic function, EF 60%.no regional wall motion abnormalities. . Grade I/IV diastolic dysfunction (abnormal relaxation filling pattern), normal to mildly elevated filling pressures. Thickened mitral valve. Thickened aortic valve. Aortic valve sclerosis. There is no pericardial effusion. There are no intracardiac masses. No previous study is available for comparison. Dr Julia Silva MD [facility] (Electronically Signed) Final Date: 15 January 2020 13:35 S
--- NOTE | 2020-01-14 17:56 | PC.OT ---
OT note: Pt having procedures/imaging. Will attempt tomorrow as able.
[2020-01-14] MEDS: losartan 50 mg Tablet 100 MG PO (22:42)
[2020-01-14] MEDS: atorvastatin 40 mg Tablet 80 MG PO (22:43)
[2020-01-14] MEDS: famotidine 20 mg Tablet PO (22:44)
[2020-01-14] MEDS: primidone 50 mg Tablet 100 MG PO (22:45)
[2020-01-15] VITALS (9 sets, daily range): BP systolic 102–168; BP diastolic 52–80; PULSE 62–80; RESP 16–24; TEMP 36.7–37.3; O2SAT 90–95
[2020-01-15] MEDS: TRAMadol 50 mg Tablet PO ×4 (00:33→21:21)
[2020-01-15] MEDS: lidocaine 5% Patch 1 PATCH TOPICAL (08:02)
[2020-01-15] MEDS: amlodipine 10 mg Tablet PO (08:03)
[2020-01-15] MEDS: carbidopa-levodopa 25-100mg Tablet 1 EACH PO ×4 (08:03→21:21)
[2020-01-15] MEDS: aspirin 325 mg EC Tablet PO (08:03)
--- NOTE | 2020-01-15 10:12 | PC.SOCIAL ---
IMM Update Pg 2 of IMM given and explained to patient and daughter who verbalized understanding. Copy provided to patient.
[2020-01-15] MEDS: ondansetron 4 MG Tablet PO (10:27)
[2020-01-15] MEDS: polyethylene glycol 3350 Pkt 17 gm PO ×2 (12:30→17:27)
[2020-01-15] MEDS: sodium chloride 0.9% 1,000 ML 75 ML IV (12:34)
--- NOTE | 2020-01-15 13:42 | P.PN_ITS ---
Subjective Subjective: Interval history: Renny reports he is doing okay. He denies any concerns. Family reports he has been verbal, without any significant neurologic deficits. Medications: Reviewed: Yes Vitals/I&O/Wt Last Vital Signs Temp 98.0 F 01/15/20 11:34 Pulse 74 01/15/20 11:34 Resp 18 01/15/20 11:34 BP 102/52 01/15/20 11:34 Pulse Ox 94 01/15/20 11:34 01/14/20 01/15/20 01/15/20 22:59 06:59 14:59 Intake Total 200 / 200 1000 / 1200 1551.25 / 1551.25 Output Total 200 / 200 150 / 150 Balance 200 / 200 800 / 1000 1401.25 / 1401.25 Weight last 48 hrs Weight 84.187 kg Weight 84.085 kg Physical Exam Narrative: EXAM NARRATIVE: General exam no apparent distress, conversant Neurologic no focal deficits Cardiovascular regular rate and rhythm with occasional premature beat Lungs clear Abdomen is soft, positive bowel sounds Extremities no cyanosis clubbing or edema. Sling present left upper extremity Data : 01/14/20 06:09 01/14/20 06:09 A&P Assessment and plan (1) Delirium: Possibly related to stroke symptoms/TIA. Had recurrence while in hospital, and was not a candidate for TPA. Will continue aspirin and statin.. No Plavix, no DVT prophylaxis currently after visiting with neurosurgery regarding the case. Consider initiation of Plavix 1 week following surgery At this point will reduce fluids Await carotid duplex. No evidence of atrial fibrillation has been found on monitoring. Echocardiogram largely normal with the exception of 1/4 diastolic dysfunction. Status: Acute Code(s): R41.0 - Disorientation, unspecified (2) Lumbar disc disease with radiculopathy: Status post laminectomy and discharge 01/11. Dr. Foley is aware he is in the hospital Status: Acute Code(s): M51.16 - Intervertebral disc disorders with radiculopathy, lumbar region (3) Parkinson's disease: Continue Sinemet. Status: Chronic Code(s): G20 - Parkinson's disease (4) Closed fracture of neck of left humerus: Appreciate orthopedic consultation Continue sling Will need skilled placement, outpatient follow-up Status: Acute Code(s): S42.212A - Unspecified displaced fracture of surgical neck of left humerus, initial encounter for closed fracture Additional A&P Information TSH and cortisol levels were checked and normal. 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
[2020-01-15] MEDS: losartan 50 mg Tablet 100 MG PO (21:18)
[2020-01-15] MEDS: famotidine 20 mg Tablet PO (21:20)
[2020-01-15] MEDS: primidone 50 mg Tablet 100 MG PO (21:20)
[2020-01-15] MEDS: atorvastatin 40 mg Tablet 80 MG PO (21:20)
[2020-01-16] VITALS (8 sets, daily range): BP systolic 132–177; BP diastolic 60–84; PULSE 56–75; RESP 18–20; TEMP 36.2–37.2; O2SAT 92–96
[2020-01-16] MEDS: TRAMadol 50 mg Tablet PO ×4 (02:13→19:00)
[2020-01-16] MEDS: sodium chloride 0.9% 1,000 ML 75 ML IV (02:14)
--- NOTE | 2020-01-16 04:21 | PC.NURSE ---
01/15/20 2314- pt is confused. pt believes he is going fishing with his boys and that his truck is outside running. I explained to patient where he was and redirected him.
[2020-01-16] MEDS: polyethylene glycol 3350 Pkt 17 gm PO ×2 (09:03→17:41)
[2020-01-16] MEDS: lidocaine 5% Patch 1 PATCH TOPICAL ×2 (09:03→20:35)
[2020-01-16] MEDS: carbidopa-levodopa 25-100mg Tablet 1 EACH PO ×4 (09:04→20:35)
[2020-01-16] MEDS: amlodipine 10 mg Tablet PO (09:04)
[2020-01-16] MEDS: aspirin 325 mg EC Tablet PO (09:04)
--- NOTE | 2020-01-16 13:58 | PM.PN ---
Subjective Subjective: Interval history: Renny reports he is doing okay. Daughter has noticed no recurrence, of his aphasia. Medications: Reviewed: Yes Vitals/I&O/Wt Last Vital Signs Temp 97.5 F L 01/16/20 10:44 Pulse 68 01/16/20 10:44 Resp 20 H 01/16/20 10:44 BP 155/80 01/16/20 10:44 Pulse Ox 93 01/16/20 10:44 01/15/20 01/16/20 01/16/20 22:59 06:59 14:59 Intake Total 240 / 1791.25 1100 / 2891.25 480 / 480 Output Total 150 / 300 550 / 850 650 / 650 Balance 90 / 1491.25 550 / 2041.25 -170 / -170 Weight last 48 hrs Weight 81.919 kg Weight 84.187 kg Weight 84.085 kg Physical Exam Narrative: EXAM NARRATIVE: General exam no apparent distress, conversant Neurologic no focal deficits Cardiovascular regular rate and rhythm with occasional premature beat Lungs clear Abdomen is soft, positive bowel sounds Extremities no cyanosis clubbing or edema. Sling present left upper extremity Data : 01/14/20 06:09 01/14/20 06:09 A&P Assessment and plan (1) Delirium: Possibly related to stroke symptoms/TIA. Had recurrence while in hospital, and was not a candidate for TPA. Will continue aspirin and statin.. No Plavix, no DVT prophylaxis currently after visiting with neurosurgery regarding the case. Consider initiation of Plavix 1 week following surgery Fluids to KVO Carotid duplex with no flow-limiting lesions Echocardiogram largely normal with the exception of 1/4 diastolic dysfunction. Status: Acute Code(s): R41.0 - Disorientation, unspecified (2) Lumbar disc disease with radiculopathy: Status post laminectomy and discharge 01/11. Dr. Foley is aware he is in the hospital Status: Acute Code(s): M51.16 - Intervertebral disc disorders with radiculopathy, lumbar region (3) Parkinson's disease: Continue Sinemet. Status: Chronic Code(s): G20 - Parkinson's disease (4) Closed fracture of neck of left humerus: Appreciate orthopedic consultation Continue sling Will need skilled placement, outpatient follow-up Status: Acute Code(s): S42.212A - Unspecified displaced fracture of surgical neck of left humerus, initial encounter for closed fracture Additional A&P Information TSH and cortisol levels were checked and normal. 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
[2020-01-16] MEDS: losartan 50 mg Tablet 100 MG PO (20:34)
[2020-01-16] MEDS: famotidine 20 mg Tablet PO (20:35)
[2020-01-16] MEDS: atorvastatin 40 mg Tablet 80 MG PO (20:35)
[2020-01-17] MEDS: TRAMadol 50 mg Tablet PO (00:08)
[2020-01-17 03:00] VITALS: BP 150/67; PULSE 67; RESP 20; TEMP 36.7; O2SAT 95
[2020-01-17 07:00] VITALS: BP 167/81; PULSE 64; RESP 18; TEMP 36.9; O2SAT 95
--- NOTE | 2020-01-17 09:26 | PC.SOCIAL ---
IMM Update Pg 2 of IMM Given and explained to patient who verbalized understanding. Copy provided to patient.
[2020-01-17] MEDS: lidocaine 5% Patch 1 PATCH TOPICAL (09:31)
[2020-01-17] MEDS: aspirin 325 mg EC Tablet PO (09:31)
[2020-01-17] MEDS: carbidopa-levodopa 25-100mg Tablet 1 EACH PO ×2 (09:31→12:42)
[2020-01-17] MEDS: amlodipine 10 mg Tablet PO (09:31)
[2020-01-17] MEDS: sodium chloride 0.9% 1,000 ML 75 ML IV (09:32)
[2020-01-17] MEDS: polyethylene glycol 3350 Pkt 17 gm PO (09:32)
[2020-01-17 10:54] VITALS: BP 169/77; PULSE 57; RESP 18; TEMP 37.1; O2SAT 95
--- NOTE | 2020-01-17 11:19 | P.PN_ITS ---
Subjective Subjective: Interval history: Federico reports he is doing well. He is hopeful to get out of the hospital today to rehabilitation. Medications: Reviewed: Yes Vitals/I&O/Wt Last Vital Signs Temp 98.8 F 01/17/20 10:54 Pulse 57 L 01/17/20 10:54 Resp 18 01/17/20 10:54 BP 169/77 01/17/20 10:54 Pulse Ox 95 01/17/20 10:54 01/16/20 01/17/20 01/17/20 22:59 06:59 14:59 Intake Total 1300 / 1780 620 / 620 Output Total 850 / 1500 620 / 2120 200 / 200 Balance 450 / 280 -620 / -340 420 / 420 Weight last 48 hrs Weight 82.214 kg Weight 81.919 kg Physical Exam Narrative: EXAM NARRATIVE: General exam no apparent distress, conversant Neurologic no focal deficits Cardiovascular regular rate and rhythm with occasional premature beat Lungs clear Abdomen is soft, positive bowel sounds Extremities no cyanosis clubbing or edema. Sling present left upper extremity Data : 01/14/20 06:09 01/14/20 06:09 A&P Assessment and plan (1) Delirium: Possibly related to stroke symptoms/TIA. Had recurrence while in hospital, and was not a candidate for TPA. Will continue aspirin and statin.. No Plavix, no DVT prophylaxis currently after visiting with neurosurgery regarding the case. Consider initiation of Plavix 1 week following surgery Fluids to KVO Carotid duplex with no flow-limiting lesions Echocardiogram largely normal with the exception of 1/4 diastolic dysfunction. Status: Acute Code(s): R41.0 - Disorientation, unspecified (2) Lumbar disc disease with radiculopathy: Status post laminectomy and discharge 01/11. Dr. Foley is aware he is in the hospital Status: Acute Code(s): M51.16 - Intervertebral disc disorders with radiculopathy, lumbar region (3) Parkinson's disease: Continue Sinemet. Status: Chronic Code(s): G20 - Parkinson's disease (4) Closed fracture of neck of left humerus: Appreciate orthopedic consultation Continue sling Will need skilled placement, outpatient follow-up Status: Acute Code(s): S42.212A - Unspecified displaced fracture of surgical neck of left humerus, initial encounter for closed fracture Additional A&P Information TSH and cortisol levels were checked and normal. Discontinue fluids Ready for discharge to skilled care DVT ppx: lovenox Full code Attestations Medical Necessity Statement*: Needs continued hospitalization pending discharge to skilled care. 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
--- NOTE | 2020-01-17 13:11 | PM.DCS ---
Discharge Providers Date of Admission: 01/12/20 22:20 Date of Discharge: January 17, 2020 Attending Provider at Admission: Lizeth Cline MD Attending Provider at Discharge: Luis Alberto Chan MD Primary Care Provider: Gautam Godoy Diagnoses at Discharge Discharge Diagnosis (1) Delirium: Status: Acute Problem details: Resolved. May have some underlying cognitive delay. (2) Lumbar disc disease with radiculopathy: Status: Acute Problem details: Improved. Status post surgery on January 10 (3) Parkinson's disease: Status: Chronic Problem details: Continue home medicines (4) Closed fracture of neck of left humerus: Status: Acute Problem details: Orthopedic follow-up in 3 weeks Reason for Visit Reason for Visit: Reason For Visit: AMS S/P BACK SURGERY Hospital Course Hospital Course: Renny is a 79-year-old white male who recently underwent lumbar laminectomy who presented to the hospital with increased confusion. Etiology was thought to be secondary to postoperative delirium. During exam he was having some pain and he was found to have a closed fracture of his left humerus and orthopedics was consulted. They believed sling was indicated, and follow-up as an outpatient. The next day, the patient improved and was transferred to the floor. On the floor he was found to have recurrence of decreased responsiveness and significant aphasia. A stroke alert was called. Secondary to his recent surgery, and no other impairments noted other than aphasia he was not deemed to be a candidate for TPA. His initial CT scan was negative. Within several hours all of his neurologic symptoms went away. High-dose statin was initiated along with aspirin. Plavix was considered, but on further discussion with neurosurgery they wish to wait 1 week prior to initiation. Echocardiogram did not demonstrate any thrombus. Carotid duplex did not demonstrate any significant flow limitation. He was monitored in the hospital several more days until he was appropriate to go to skilled care for his significant weakness. He will be initiated on Plavix tomorrow, along with his low-dose aspirin. Multiple medicines were also reduced or discontinued to try to reduce chance of confusion. Physical Exam Narrative: EXAM NARRATIVE: See exam from note earlier today. Discharge Data Data Completed and Pending: Completed Studies During Hospitalization Category Date Time Status CT head wo con* 7 0450 Routine Cat Scan 01/14/20 09:[address] head wo con* 7 0450 Stat Cat Scan 01/12/20 17:[address] lumbar spine w con [id number] Stat Cat Scan 01/12/20 20:39 Completed XR chest 1V vernon ble [id number] Stat Exams 01/12/20 17:04 Completed XR forearm RT 2V [id number] Stat Exams 01/12/20 22:35 Completed XR humerus LT 730 60 Stat Exams 01/12/20 22:36 Completed CV carotid duplex BI* [id number] Routine Ultrasound 01/14/20 15:04 Completed CV echo complete* [id number] Routine Ultrasound 01/14/20 15:04 Completed Vitals: Last Vital Signs Temp 98.8 F 01/17/20 10:54 Pulse 57 L 01/17/20 10:54 Resp 18 01/17/20 10:54 BP 169/77 01/17/20 10:54 Pulse Ox 95 01/17/20 10:54 Discharge Plan Discharge Patient Disposition: Xfer [facility] Condition: Stable Prescriptions: New tramadol 50 mg tablet 50 mg PO TID PRN (Reason: pain) Qty: 20 RF: 0 amlodipine 10 mg Tablet 10 mg PO DAILY Qty: 30 RF: 0 lidocaine [Lidoderm] 5 % Adhesive Patch,Medicated 1 patch topical [id number] Qty: 30 RF: 0 atorvastatin 40 mg Tablet 80 mg PO BEDTIME Qty: 30 RF: 0 clopidogrel [Plavix] 75 mg tablet 75 mg PO DAILY Qty: 30 RF: 0 polyethylene glycol 3350 [Miralax] 17 gram Powder In Packet 17 g PO BID Qty: 60 RF: 0 aspirin [Aspirin Low Dose] 81 mg tablet,delayed release (DR/EC) 81 mg PO DAILY Qty: 30 RF: 0 Continued ranitidine HCl 300 mg tablet 300 mg PO BID RF: 0 primidone 50 mg tablet 100 mg PO BEDTIME RF: 0 carbidopa-levodopa 25-100 mg tablet,disintegrating 1 tab PO QID RF: 0 losartan 100 mg tablet 50 mg PO ONCE RF: 0 Discontinued amlodipine 10 mg tablet 5 mg PO ONCE RF: 0 dicyclomine 10 mg capsule 20 mg PO ONCE RF: 0 citalopram 40 mg tablet 20 mg PO ONCE RF: 0 tramadol 50 mg tablet 100 mg PO QID PRN (Reason: pain) 30 Days Qty: 240 RF: 1 tramadol 50 mg Tablet 50 mg PO BID PRN (Reason: Abdominal Pain) RF: 0 lidocaine HCl 1 tbsp PO QID PRN (Reason: Abdominal Discomfort) RF: 0 pregabalin 75 mg capsule 75 mg PO DAILY RF: 0 Discharge Orders: Discharge Order (Routine); Ordered 01/17/20 Ordered By: Luis Alberto Chan Referrals: [facility] [Outside] - 1-3 days Jan Pendleton DO [Physician] - (follow-up with Dr. Pendleton in 3 weeks in the office for repeat x-rays of the left shoulder Call [phone] for appointment) Vandana Cotto MD [Physician] - 2 weeks (Follow-up episode of aphasia) Valentin Foley MD [Physician] - 2 weeks Discharge Diet: Cardiac Discharge Activity: Increase activity as tolerated Activity Restrictions/Additional Instructions: Take all medicine as prescribed. 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
[2020-01-17 13:59] VITALS: BP 169/77; PULSE 57; RESP 18; TEMP 37.1; O2SAT 95
--- NOTE | 2020-01-17 15:38 | PC.NURSE ---
Discharge note Patient report called to Amanda at [facility]. Patient left with daughter to private vehicle to [facility]
== END 2020-01-17 15:25 | disposition skilled nursing facility (03) | DRG 880 ==
LOC: ER 16:50 → ICU 22:47 → MEDSURG 01-13 14:44
PROVIDERS: Internal Medicine; Admitting Provider Student in an Organized Health Care Education/Training Program; Emergency Provider Family Medicine; Family Provider Internal Medicine; PCP Internal Medicine; Visit Provider Internal Medicine
DX: F05 Delirium due to known physiological condition (principal); S42.212A Unspecified displaced fracture of surgical neck of left humerus, initial encounter for closed fracture; G45.9 Transient cerebral ischemic attack, unspecified; I10 Essential (primary) hypertension; G20 Parkinson's disease; M51.16 Intervertebral disc disorders with radiculopathy, lumbar region; Z85.46 Personal history of malignant neoplasm of prostate; X58.XXXA Exposure to other specified factors, initial encounter; E78.5 Hyperlipidemia, unspecified; K21.9 Gastro-esophageal reflux disease without esophagitis; J44.9 Chronic obstructive pulmonary disease, unspecified; I25.10 Atherosclerotic heart disease of native coronary artery without angina pectoris; E66.9 Obesity, unspecified; Z68.29 Body mass index [BMI] 29.0-29.9, adult; K58.9 Irritable bowel syndrome, unspecified; E86.0 Dehydration
CPT/HCPCS: 12345; 36415; 36416; 36600; 70450; 71045; 72132; 73060; 73090; 80051; 80053; 81001; 82009; 82533; 82607; 82810; 82962; 83690; 83986; 84443; 84484; 85025; 87804; 92523; 92610; 93005; 93306; 93880; 96375; 97110; 97116; 97162; 97166; 97530; 97535; 99283; A9270; J2270; J7030; Q0162; Q9967

== ENCOUNTER 2020-02-07 10:30 | Outpatient (CLI) | payer MEDICARE, SELFPAY ==
--- NOTE | 2020-02-07 10:42 | XR_ITS ---
WS: [id number] XR shoulder LT min 2V* [id number] REASON FOR EXAM: left humerus fracture FINDINGS: Good healing is seen in the impacted fracture of the surgical neck of the humerus. There is mild degenerate changes of the acromioclavicular joint. XR/XR shoulder LT min 2V* [id number] IMPRESSION: Healing changes impacted fracture surgical neck of the humerus. Mild degenerate changes of the acromioclavicular joint.
== END 2020-02-07 10:31 | disposition home or self-care (01) ==
PROVIDERS: Family Provider Internal Medicine; PCP Internal Medicine; Visit Provider Orthopaedic Surgery
DX: S42.212D Unspecified displaced fracture of surgical neck of left humerus, subsequent encounter for fracture with routine healing (principal); X58.XXXD Exposure to other specified factors, subsequent encounter; M19.012 Primary osteoarthritis, left shoulder
CPT/HCPCS: 73030

== ENCOUNTER 2020-02-14 11:27 | Observation (INO) | payer OTHER, MEDICARE, SELFPAY ==
[2020-02-14 11:42] VITALS: BMI 25.8
[2020-02-14 11:50] VITALS: BP 167/85; PULSE 82; RESP 18; TEMP 37.2; O2SAT 97
--- NOTE | 2020-02-14 11:53 | ED_ITS ---
Entered by Nancy Garcia, acting as scribe for Xiomara Lebron HPI - Weakness General: Chief complaint: Weakness Stated complaint: WEAK Time Seen by Provider: 02/14/20 11:52 Source: patient, family and RN notes reviewed Mode of arrival: ambulatory Limitations: altered mental status History of Present Illness: HPI Narrative: 80 yo male presents to ED with fam skylar complaints of weakness and delusions. The patient's daughter is giving the history due to the patient'a altered mental status. She stated the patient had low back surgery with Dr Foley on 01.17.2020 and severe post-op delirium. She said after he was home for 2 days the patient became unresponsive. He was brought to the ED and they were told the patient was thought to have been having TIA's. He had an appointment with Dr Cotto and was placed on Plavix. The patient went to rehabilitation in [facility]. The home had a flu outbreak and the patient was given Tamiflu on a prev entative measure. The patient began feeling nauseated soon after so he was taken off of the Tamiflu. He felt better for one day and he has declined since: now with continued nausea, decreased appetite (has not been eating much since that time); overall ill feeling; headache; sleepiness (sleeping at least 20 hours per day). She said the patient went to the doctor a few days ago, was told the patient had a low grade fever and was treated for UTI. The patient had virtual follow-up visit with his PCP and it was decided that the Plavix causing the patient's symptoms. She said this morning collapsed (she is unsure if he had a syncopal event), he was incontinent (last night) and he has been delusional. The patient stated he had driven to [place] and that got into a cage with 2 or 3 cheetahs and passed out in a car, but actually he was in a plane. MD Complaint: generalized weakness and lack of energy Onset (ago): week(s) (2) Duration: constant and progressively worsening Location: generalized Migration: none Severity: moderate Relieving factors: none Exacerbating factors: none Context: new medication Associated symptoms: Reports decreased appetite; Denies chest pain, chills, dark stools, diaphoresis, dysuria, easy bruising, fever(s), headache(s), nausea, syncope or vomiting Review of Systems General: Reports: ROS unobtainable due to mental status (No fevers, cough, diarrhea, abdominal pain or skin rashes reported by family) Const: Denies: fever, chills, body aches, fatigue or diaphoresis Eyes: Denies: change in vision or blurry vision ENMT: Denies: throat pain, painful swallowing, hoarseness, ear pain, ear discharge, Change in hearing or nasal discharge Card: Denies: chest pain, palpitations, irregular heart rhythm, syncope, pre-syncope, shortness of breath on exertion or shortness of breath when lying down Resp: Denies: shortness of breath, productive cough, non-productive cough, wheezing, coughing up blood or chest congestion GI: Denies: abdominal pain, nausea, vomiting, vomiting blood, coffee grounds in vomit, diarrhea, constipation, cramping, blood in stool or black tarry stool : Denies: flank pain, difficulty urinating, painful urination, urinary frequency, urinary urgency, decreased urine ouput or blood in urine Musc: Denies: neck pain, back pain, extremity pain, extremity swelling, joint pain, joint swelling, joint warmth or joint stiffness Skin/Breast: Denies: rash, skin tenderness or yellow skin Neuro: Denies: headache, numbness in extremities, weakness in extremities, changes in sensation, lack of coordination, difficulty walking, dizziness or vertigo Endo: Denies: excessive thirst, cold intolerance, excessive sweating, flushing or hot flashes Griffin/Lymph: Denies: easy bruising, easy bleeding, petechiae or enlarged lymph nodes All/Imm: Denies: hives, throat swelling, tongue swelling, facial swelling or acute wheezing PFSH ED PFSH: Medical History 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 Tamia Foley. Bilateral L3-L4 hemilaminotomy/foraminotomy, with limited discectomy. Bilateral L2-L3 laminotomy/foraminotomy. Family History Mother No problems noted. Grandmother CAD (coronary artery disease) Cancer Myocardial infarct Family/Other Hypertension Social History Smoking and tobacco status: never smoked Alcohol intake: never Household members: family and children Marital status: / Current occupational status: retired History of recent travel: No Physical Exam Const: COMMON NORMALS: no apparent distress, no limitations, healthy appearing and well nourished EXAM LIMITATIONS: altered mental status GENERAL APPEARANCE: cooperative, well kempt and well developed ORIENTATION/CONSCIOUSNESS: Yes awake HENMT: COMMON NORMALS: normocephalic, head/scalp atraumatic, hearing grossly normal bilaterally, external ears normal, EAC's normal, external nose normal and moist oral mucous membranes HEAD & SCALP: normal to inspection, normocephalic and atraumatic FACE & SINUS: normal facial exam and face symmetric NOSE: external nose normal and nares normal EXTERNAL EAR: Yes external ears normal EXTERNAL AUDITORY CANAL: EAC's normal MOUTH: oral and palatal mucosa normal and tongue normal Eye: COMMON NORMALS: PERRL, EOMs intact bilaterally, conjunctivae normal and no scleral icterus GENERAL EYE: normal appearance of both eyes and normal light reflex CONJUNCTIVA: Yes conjunctivae normal SCLERA: sclerae normal CORNEA: Yes corneas normal PUPIL: Yes PERRL DIRECT OPHTHALMOSCOPY: Yes normal light reflex Neck/C-Spine: COMMON NORMALS: full ROM, no lymphadenopathy, supple, no meningeal signs and no JVD GENERAL: Yes normal visual inspection and Yes trachea midline CERVICAL SPINE: Yes cervical ROM normal Chest: COMMONS NORMALS: inspection of chest normal and palpation of chest normal Resp: COMMON NORMALS: normal respiratory effort, no retractions, no use of accessory muscles and clear to auscultation bilaterally EFFORT & INSPECTION: Yes able to speak in complete sentences AUSCULTATION: clear to auscultation bilaterally Cardio: COMMON NORMALS: no JVD, regular rate, regular rhythm, S1 normal heart sound, S2 normal heart sound, no gallops, no clicks, no murmurs and no rub JUGULAR VENOUS DISTENTION: no JVD RATE: regular rate RHYTHM: regular rhythm HEART SOUNDS: S1 normal and S2 normal GI: COMMON NORMALS: soft to palpation, non-tender, no hepatosplenomegaly and no masses INSPECTION: Yes normal to inspection PALPATION: Yes soft and Yes no hepatosplenomegaly : COMMON NORMALS: Yes no CVA tenderness BLADDER/KIDNEY EXAM: Yes no CVA tenderness Back/Pelvis: COMMON NORMALS: no CVA tenderness, thoracic and lumbar spine normal to inspection, no thoracic nor lumbar tenderness and thoraco-lumbar ROM normal Extremity: COMMON NORMALS: normal to inspection, full ROM, normal capillary refill, no joint enlargement, no clubbing, cyanosis or edema and no calf tenderness Neuro: COMMON NORMALS: CN's II-XII intact bilaterally, moves all extremities, no focal motor deficits and no sensory deficits noted MENINGEAL SIGNS: Yes no meningeal signs Psych: COMMON NORMALS: mental status grossly normal, thought process normal, cooperative, affect normal, speech normal and activity/motor behavior normal APPEARANCE: Yes well kempt SPEECH: Yes normal speech THOUGHT PROCESS: normal thought process Skin: COMMON NORMALS: no rashes or lesions noted, skin turgor normal, no jaundice, no petechiae and no mottling GENERAL SKIN EXAM: no rashes or lesions noted and turgor normal Course Vital Signs: Vital signs: Vital Signs Temperature 99.0 F 02/14/20 11:50 Pulse Rate 82 02/14/20 11:50 Respiratory Rate 18 02/14/20 11:50 Blood Pressure 167/85 02/14/20 11:50 Pulse Oximetry 97 02/14/20 11:50 MDM - Weakness MDM Narrative: Medical decision making narrative: Mr. Sosa is a nice 80-year-old male who comes in with altered mental status. It sounds as though he has acute delirium. He recently got over a UTI but is still profoundly dehydrated. He is received over 2 L of fluid and still remains orthostatic. I reviewed the case in full with Dr. Cotto who thinks the patient more likely has Lewy body dementia. She would like his Sinemet held and she will see him in the office in follow-up. I reviewed the case in full with Dr. Valdivia, he agrees admit the patient for observation status to hydrate him. Lab Data: Labs: Lab Results 02/14/20 02/14/20 02/14/20 Range/Units 12:12 12:12 12:12 WBC 6.7 (4.0-10.0) 10^3/ uL RBC 4.36 (4.1-5.3) 10^6/u L Hgb 13.5 (11.7-16.6) g/dL Hct 40.4 L (42.0-52.0) % MCV 92.7 (80-94) fL MCH 31.0 (28.0-34.0) pg MCHC 33.4 (30.0-36.0) g/dL RDW 12.8 (12.1-15.1) % Plt Count 176 (130-400) 10^3/c mm MPV 10.9 H (7.4-10.4) fL Neut % (Auto) 70.5 % Lymph % (Auto) 20.0 % Casey % (Auto) 8.1 % Eos % (Auto) 0.6 % Baso % (Auto) 0.5 % Neut # (Auto) 4.7 (1.8-7.7) 10^3/u L Lymph # (Auto) 1.3 (0.8-4.8) 10^3/u L Casey # (Auto) 0.5 (0.2-0.9) 10^3/u L Eos # (Auto) 0.0 (0.0-0.8) 10^3/u L Baso # (Auto) 0.0 (0.0-0.1) 10^3/u L Nucleated RBC % (a uto) 0 % Nucleated RBCs # 0.0 /100WBC Sodium 136 (136-145) mmol/L Potassium 4.3 (3.5-5.1) mmol/L Chloride 102 (98-107) mmol/L Carbon Dioxide 20 L (22-29) mmol/L Anion Gap 18.3 (5-19) BUN 14 (8-23) mg/dL Creatinine 1.3 H (0.7-1.2) mg/dL Glucose 141 H (65-115) mg/dL Calculated Osmolal ity 281 L (285-295) mOsm/k g Lactic Acid 1.4 (0.5-2.2) mmol/L Calcium 9.8 (8.5-10.5) mg/dL Magnesium 2.2 (1.7-2.3) mg/dL Total Bilirubin 0.4 (0.15-1.2) mg/dL AST 20 (0-40) U/L ALT 26 (0-41) U/L Alkaline Phosphata se 137 H (40-130) IU/L Ammonia (16-60) umol/L Creatine Kinase 50 (39-308) U/L Troponin T Baselin e (0-15) ng/mL Troponin T [address] [place] (0-15) ng/mL Delta Troponin T (0-10) ABS# Total Protein 6.8 (6.6-8.7) g/dL Albumin 4.2 (3.5-5.2) g/dL Globulin 2.6 (1.3-4.6) g/dL Lipase 12 L (13-60) U/L TSH 1.20 (0.27-4.20) uIU/ mL Urine Color (Yellow) Urine Appearance (CLEAR) Urine pH (5-7) Ur Specific Gravit y (1.005-1.030) Urine Protein (Negative) Urine Glucose (UA) (Normal) Urine Ketones (Negative) Urine Blood (Negative) Urine Nitrate (Negative) Urine Bilirubin (NEGATIVE) Urine Urobilinogen (Negative) mg/dL Ur Leukocyte Adelaide ase (Negative) Urine RBC (0-2) /hpf Urine WBC (0-5) /hpf Ur Squamous Epith Cells (0-5) Urine Bacteria (NONE) Hyaline Casts Urine Mucus Urine Opiates Scre en (Negative) ng/mL Ur Barbiturates Sc reen (Negative) ng/mL Ur Phencyclidine S crn (Negative) ng/mL Ur Amphetamines Sc reen (Negative) ng/mL U Benzodiazepines Scrn (Negative) ng/mL Urine Cocaine Scre en (Negative) ng/mL U Marijuana (THC) Screen (Negative) ng/mL Ethyl Alcohol < 10 (0-10) mg/dL Serum Ketones (Negative) Influenza Type A A g (Negative) POC Influenza B Ag (Negative) 02/14/20 02/14/20 02/14/20 Range/Units 12:12 12:12 12:12 WBC (4.0-10.0) 10^3/ uL RBC (4.1-5.3) 10^6/u L Hgb (11.7-16.6) g/dL Hct (42.0-52.0) % MCV (80-94) fL MCH (28.0-34.0) pg MCHC (30.0-36.0) g/dL RDW (12.1-15.1) % Plt Count (130-400) 10^3/c mm MPV (7.4-10.4) fL Neut % (Auto) % Lymph % (Auto) % Casey % (Auto) % Eos % (Auto) % Baso % (Auto) % Neut # (Auto) (1.8-7.7) 10^3/u L Lymph # (Auto) (0.8-4.8) 10^3/u L Casey # (Auto) (0.2-0.9) 10^3/u L Eos # (Auto) (0.0-0.8) 10^3/u L Baso # (Auto) (0.0-0.1) 10^3/u L Nucleated RBC % (a uto) % Nucleated RBCs # /100WBC Sodium (136-145) mmol/L Potassium (3.5-5.1) mmol/L Chloride (98-107) mmol/L Carbon Dioxide (22-29) mmol/L Anion Gap (5-19) BUN (8-23) mg/dL Creatinine (0.7-1.2) mg/dL Glucose (65-115) mg/dL Calculated Osmolal ity (285-295) mOsm/k g Lactic Acid (0.5-2.2) mmol/L Calcium (8.5-10.5) mg/dL Magnesium (1.7-2.3) mg/dL Total Bilirubin (0.15-1.2) mg/dL AST (0-40) U/L ALT (0-41) U/L Alkaline Phosphata se (40-130) IU/L Ammonia 19 (16-60) umol/L Creatine Kinase (39-308) U/L Troponin T Baselin e 21 H (0-15) ng/mL Troponin T [address] [place] (0-15) ng/mL Delta Troponin T (0-10) ABS# Total Protein (6.6-8.7) g/dL Albumin (3.5-5.2) g/dL Globulin (1.3-4.6) g/dL Lipase (13-60) U/L TSH (0.27-4.20) uIU/ mL Urine Color (Yellow) Urine Appearance (CLEAR) Urine pH (5-7) Ur Specific Gravit y (1.005-1.030) Urine Protein (Negative) Urine Glucose (UA) (Normal) Urine Ketones (Negative) Urine Blood (Negative) Urine Nitrate (Negative) Urine Bilirubin (NEGATIVE) Urine Urobilinogen (Negative) mg/dL Ur Leukocyte Adelaide ase (Negative) Urine RBC (0-2) /hpf Urine WBC (0-5) /hpf Ur Squamous Epith Cells (0-5) Urine Bacteria (NONE) Hyaline Casts Urine Mucus Urine Opiates Scre en (Negative) ng/mL Ur Barbiturates Sc reen (Negative) ng/mL Ur Phencyclidine S crn (Negative) ng/mL Ur Amphetamines Sc reen (Negative) ng/mL U Benzodiazepines Scrn (Negative) ng/mL Urine Cocaine Scre en (Negative) ng/mL U Marijuana (THC) Screen (Negative) ng/mL Ethyl Alcohol (0-10) mg/dL Serum Ketones Negative (Negative) Influenza Type A A g (Negative) POC Influenza B Ag (Negative) 02/14/20 02/14/20 02/14/20 Range/Units 12:45 12:46 12:46 WBC (4.0-10.0) 10^3/ uL RBC (4.1-5.3) 10^6/u L Hgb (11.7-16.6) g/dL Hct (42.0-52.0) % MCV (80-94) fL MCH (28.0-34.0) pg MCHC (30.0-36.0) g/dL RDW (12.1-15.1) % Plt Count (130-400) 10^3/c mm MPV (7.4-10.4) fL Neut % (Auto) % Lymph % (Auto) % Casey % (Auto) % Eos % (Auto) % Baso % (Auto) % Neut # (Auto) (1.8-7.7) 10^3/u L Lymph # (Auto) (0.8-4.8) 10^3/u L Casey # (Auto) (0.2-0.9) 10^3/u L Eos # (Auto) (0.0-0.8) 10^3/u L Baso # (Auto) (0.0-0.1) 10^3/u L Nucleated RBC % (a uto) % Nucleated RBCs # /100WBC Sodium (136-145) mmol/L Potassium (3.5-5.1) mmol/L Chloride (98-107) mmol/L Carbon Dioxide (22-29) mmol/L Anion Gap (5-19) BUN (8-23) mg/dL Creatinine (0.7-1.2) mg/dL Glucose (65-115) mg/dL Calculated Osmolal ity (285-295) mOsm/k g Lactic Acid (0.5-2.2) mmol/L Calcium (8.5-10.5) mg/dL Magnesium (1.7-2.3) mg/dL Total Bilirubin (0.15-1.2) mg/dL AST (0-40) U/L ALT (0-41) U/L Alkaline Phosphata se (40-130) IU/L Ammonia (16-60) umol/L Creatine Kinase (39-308) U/L Troponin T Baselin e (0-15) ng/mL Troponin T [address] [place] (0-15) ng/mL Delta Troponin T (0-10) ABS# Total Protein (6.6-8.7) g/dL Albumin (3.5-5.2) g/dL Globulin (1.3-4.6) g/dL Lipase (13-60) U/L TSH (0.27-4.20) uIU/ mL Urine Color Yellow (Yellow) Urine Appearance Clear (CLEAR) Urine pH 5 (5-7) Ur Specific Gravit y 1.020 (1.005-1.030) Urine Protein Neg (Negative) Urine Glucose (UA) Norm (Normal) Urine Ketones Negative (Negative) Urine Blood Neg (Negative) Urine Nitrate Negative (Negative) Urine Bilirubin Neg (NEGATIVE) Urine Urobilinogen Norm (Negative) mg/dL Ur Leukocyte Adelaide ase Negative (Negative) Urine RBC None (0-2) /hpf Urine WBC None (0-5) /hpf Ur Squamous Epith Cells 0-4 H (0-5) Urine Bacteria Trace (NONE) Hyaline Casts 0-4 H Urine Mucus Trace Urine Opiates Scre en Negative (Negative) ng/mL Ur Barbiturates Sc reen Positive H (Negative) ng/mL Ur Phencyclidine S crn Negative (Negative) ng/mL Ur Amphetamines Sc reen Negative (Negative) ng/mL U Benzodiazepines Scrn Positive H (Negative) ng/mL Urine Cocaine Scre en Negative (Negative) ng/mL U Marijuana (THC) Screen Negative (Negative) ng/mL Ethyl Alcohol (0-10) mg/dL Serum Ketones (Negative) Influenza Type A A g Negative (Negative) POC Influenza B Ag Negative (Negative) 02/14/20 Range/Units 14:15 WBC (4.0-10.0) 10^3/ uL RBC (4.1-5.3) 10^6/u L Hgb (11.7-16.6) g/dL Hct (42.0-52.0) % MCV (80-94) fL MCH (28.0-34.0) pg MCHC (30.0-36.0) g/dL RDW (12.1-15.1) % Plt Count (130-400) 10^3/c mm MPV (7.4-10.4) fL Neut % (Auto) % Lymph % (Auto) % Casey % (Auto) % Eos % (Auto) % Baso % (Auto) % Neut # (Auto) (1.8-7.7) 10^3/u L Lymph # (Auto) (0.8-4.8) 10^3/u L Casey # (Auto) (0.2-0.9) 10^3/u L Eos # (Auto) (0.0-0.8) 10^3/u L Baso # (Auto) (0.0-0.1) 10^3/u L Nucleated RBC % (a uto) % Nucleated RBCs # /100WBC Sodium (136-145) mmol/L Potassium (3.5-5.1) mmol/L Chloride (98-107) mmol/L Carbon Dioxide (22-29) mmol/L Anion Gap (5-19) BUN (8-23) mg/dL Creatinine (0.7-1.2) mg/dL Glucose (65-115) mg/dL Calculated Osmolal ity (285-295) mOsm/k g Lactic Acid (0.5-2.2) mmol/L Calcium (8.5-10.5) mg/dL Magnesium (1.7-2.3) mg/dL Total Bilirubin (0.15-1.2) mg/dL AST (0-40) U/L ALT (0-41) U/L Alkaline Phosphata se (40-130) IU/L Ammonia (16-60) umol/L Creatine Kinase (39-308) U/L Troponin T Baselin e (0-15) ng/mL Troponin T [address] [place] 19.96 H (0-15) ng/mL Delta Troponin T -1.04 L (0-10) ABS# Total Protein (6.6-8.7) g/dL Albumin (3.5-5.2) g/dL Globulin (1.3-4.6) g/dL Lipase (13-60) U/L TSH (0.27-4.20) uIU/ mL Urine Color (Yellow) Urine Appearance (CLEAR) Urine pH (5-7) Ur Specific Gravit y (1.005-1.030) Urine Protein (Negative) Urine Glucose (UA) (Normal) Urine Ketones (Negative) Urine Blood (Negative) Urine Nitrate (Negative) Urine Bilirubin (NEGATIVE) Urine Urobilinogen (Negative) mg/dL Ur Leukocyte Adelaide ase (Negative) Urine RBC (0-2) /hpf Urine WBC (0-5) /hpf Ur Squamous Epith Cells (0-5) Urine Bacteria (NONE) Hyaline Casts Urine Mucus Urine Opiates Scre en (Negative) ng/mL Ur Barbiturates Sc reen (Negative) ng/mL Ur Phencyclidine S crn (Negative) ng/mL Ur Amphetamines Sc reen (Negative) ng/mL U Benzodiazepines Scrn (Negative) ng/mL Urine Cocaine Scre en (Negative) ng/mL U Marijuana (THC) Screen (Negative) ng/mL Ethyl Alcohol (0-10) mg/dL Serum Ketones (Negative) Influenza Type A A g (Negative) POC Influenza B Ag (Negative) Imaging Data^: CXR: Radiologist's impression: [address] [place] [address] XRay Report Signed Patient: Renny Matos #: [id number] : 1940cct#:[id number] Age/Sex: 80 / MADM Date: 02/14/20 Loc: ERRoom/Bed: Attending Dr: Ordering Provider/Ordering MD: Xiomara Lebron DO Date of Service: 02/14/20 Procedure(s): XR chest 1V portable [id number] Accession Number(s): [id number] Report Number: [id number] WS: [id number] PORTABLE CHEST HISTORY: cough COMPARISON: 01/12/2020 Decreased lung volume with crowding the lung markings at the bases. Markings would probably improve with better inspiratory effort. No pneumonia. No pleural effusion or pneumothorax. Cardiac size: Normal. Mediastinum/Aorta: Normal mediastinum. No osseous abnormality seen. XR/XR chest 1V portable 09666 IMPRESSION: Poor inspiratory effort. Interstitial markings would probably improvement with better inspiration. Dictated By:Esperanza Martin DO Signed By:Esperanza Martin DOSigned Date/Time:02/14/20 CT Head: Radiologist's impression: [place] [address] CT Scan Report Signed Patient: Renny Matos #: [id number] : [id number]#:[id number] Age/Sex: 80 / MADM Date: 02/14/20 Loc: ERRoom/Bed: Attending Dr: Ordering Provider/Ordering MD: Xiomara Lebron DO Date of Service: 02/14/20 Procedure(s): CT head wo con* [id number] Accession Number(s): [id number] Report Number: [id number] WS: [id number] CT HEAD NONCONTRAST HISTORY: HERRERA/AMS TECHNIQUE: Contiguous axial imaging performed through the brain in 2.5 mm imaging. Bone and soft tissue windows. Sagittal and coronal reformats reviewed. All CT scans at [facility] use at least one of these dose optimization techniques: automated exposure control; mA and/or kV adjustment per patient size (includes targeted exams where dose is matched to clinical indication); or iterative reconstruction. DLP: 654.74 mGy.cm COMPARISON: 01/14/2020 No acute intracranial hemorrhage, midline shift or mass effect. Moderate atrophy and chronic ischemic disease. No prior infarcts. No hemorrhage. Ventricles: Ventricles and extra-axial spaces are prominent on the basis of atrophy. Paranasal sinuses: As visualized are clear. Mastoid air cells: Well pneumatized. Calvarium and scalp: Skull is intact with no soft tissue edema or swelling. CT/CT head wo con* 68871 IMPRESSION: 1. No acute intracranial hemorrhage or edema. 2. Moderate atrophy and chronic microvascular ischemic disease. Dictated By:Esperanza Martin DO Signed By:Esperanza Martin DOSigned Date/Time:02/14/20 EKG Data^: EKG 1: Attestation: I personally reviewed and interpreted this EKG as follows: EKG interpretation date: 02/14/20 EKG interpretation time: 12:08 Interpretation: Normal sinus rhythm at 80 beats a minute, right bundle branch block, left axis deviation, nonspecific ST and T wave changes, PVCs. Discharge Plan Discharge Patient Disposition: Placed in Observation Clinical Impression: Acute dehydration Condition: Stable Prescriptions: No Action ranitidine HCl 300 mg tablet 300 mg PO BID RF: 0 primidone 50 mg tablet 100 mg PO BEDTIME RF: 0 losartan 100 mg tablet 50 mg PO DAILY RF: 0 aspirin [Aspirin Low Dose] 81 mg tablet,delayed release (DR/EC) 81 mg PO DAILY Qty: 30 RF: 0 tramadol 50 mg tablet 50 mg PO TID PRN (Reason: pain) Qty: 20 RF: 0 clopidogrel [Plavix] 75 mg tablet 75 mg PO DAILY Qty: 30 RF: 0 Bactrim DS 800-160 mg Tablet 1 tab PO Q12H RF: 0 Tylenol Extra Strength 500 mg Tablet 1,000 mg PO PRN RF: 0 ibuprofen 200 mg Tablet 400 mg PO PRN RF: 0 Lidocaine Viscous 2 % Solution See Rx Instructions .ROUTE .COMPLEX RF: 0 carbidopa-levodopa 25-100 mg tablet 1 tab PO QID RF: 0 Miralax 17 gram powder in packet 17 g PO DAILY PRN (Reason: Constipation) RF: 0 amlodipine 10 mg tablet See Rx Instructions .ROUTE .COMPLEX RF: 0 Referrals: Gautam Godoy [Primary Care Provider] - Coding Level of Care Code ED Social Media Marketing Specialist for g Fwd Exam Comprehensive The documentation recorded by the Radha garcia Valerie R, accurately reflects the service I personally performed and the decisions made by me, Xiomara Lebron Feb 14, 2020 11:27
--- NOTE | 2020-02-14 12:00 | CT_ITS ---
WS: [id number] CT HEAD NONCONTRAST HISTORY: HERRERA/AMS TECHNIQUE: Contiguous axial imaging performed through the brain in 2.5 mm imaging. Bone and soft tiss ue windows. Sagittal and coronal reformats reviewed. All CT scans at [facility] use at ast one of these dose optimization techniques: automated exposure control; mA and/or kV adjustment pe r patient size (includes targeted exams where dose is matched to clinical indication); or iterative r econstruction. DLP: 654.74 mGy.cm COMPARISON: 01/14/2020 No acute intracranial hemorrhage, midline shift or mass effect. Moderate atrophy and chronic ischemic disease. No prior infarcts. No hemorrhage. Ventricles: Ventricles and extra-axial spaces are prominent on the basis of atrophy. Paranasal sinuses: As visualized are clear. Mastoid air cells: Well pneumatized. Calvarium and scalp: Skull is intact with no soft tissue edema or swelling. CT/CT head wo con* [id number] IMPRESSION: 1. No acute intracranial hemorrhage or edema. 2. Moderate atrophy and chronic microvascular ischemic disease.
--- NOTE | 2020-02-14 12:00 | XR_ITS ---
WS: [id number] PORTABLE CHEST HISTORY: cough COMPARISON: 01/12/2020 Decreased lung volume with crowding the lung markings at the bases. Markings would probably improve w ith better inspiratory effort. No pneumonia. No pleural effusion or pneumothorax. Cardiac size: Normal. Mediastinum/Aorta: Normal mediastinum. No osseous abnormality seen. XR/XR chest 1V portable [id number] IMPRESSION: Poor inspiratory effort. Interstitial markings would probably improvement with better inspiration.
--- NOTE | 2020-02-14 12:01 | ECG_ITS ---
Measurements Intervals [place] Rate: 80 P: 25 AL: 179 QRS: -41 QRSD: 130 T: 38 QT: 394 QTc: 455 SINUS RHYTHM WITH OCCASIONAL VENTRICULAR PREMATURE COMPLEXES MARKED LEFT AXIS DEVIATION [QRS AXIS < -30] RIGHT BUNDLE BRANCH BLOCK Compared to ECG 01/14/2020 16:25:55 Left-axis deviation now present Right bundle-branch block now present Incomplete right bundle-branch block no longer present Myocardial infarct finding no longer present Electronically Signed On 02-14-2020 17:56:39 CDT by Pauline Chiu M.D. [email or web address]
[2020-02-14 12:26] LABS: Basophils % 0.5 %; Eosinophils % 0.6 %; Hematocrit 40.4 % (42.0-52.0); Hemoglobin 13.5 g/dL (11.7-16.6); Lymphocytes # 1.3 10^3/uL (0.8-4.8); Mean Corpuscular HGB Conc 33.4 g/dL (30.0-36.0); Mean Corpuscular Volume 92.7 fL (80-94); Mean Platelet Volume 10.9 fL (7.4-10.4); Monocytes # 0.5 10^3/uL (0.2-0.9); Monocytes % 8.1 %; Neutrophils # 4.7 10^3/uL (1.8-7.7); Neutrophils % 70.5 %; Nucleated Red Blood Cells % 0 %; Platelet Count 176 10^3/cmm (130-400); Red Blood Count 4.36 10^6/uL (4.1-5.3); Red Cell Distribution Width 12.8 % (12.1-15.1); White Blood Count 6.7 10^3/uL (4.0-10.0)
[2020-02-14 12:39] LABS: Ketone (Acetest) Serum Negative (Negative)
[2020-02-14 12:42] LABS: Ammonia 19 umol/L (16-60); Lactic Sepsis W/Reflex 1.4 mmol/L (0.5-2.2); Troponin(5th) Baseline 21 ng/mL (0-15)
[2020-02-14 12:50] LABS: Alanine Aminotransferase 26 U/L (0-41); Albumin Level 4.2 g/dL (3.5-5.2); Alkaline Phosphatase 137 IU/L (40-130); Anion Gap 18.3 (5-19); Aspartate Amino Transferase 20 U/L (0-40); Blood Urea Nitrogen 14 mg/dL (8-23); Calcium 9.8 mg/dL (8.5-10.5); Carbon Dioxide 20 mmol/L (22-29); Chloride 102 mmol/L (98-107); Creatine Phosphokinase 50 U/L (39-308); Globulin 2.6 g/dL (1.3-4.6); Glucose 141 mg/dL (65-115); Lipase 12 U/L (13-60); Magnesium 2.2 mg/dL (1.7-2.3); Osmolality Calculated 281 mOsm/kg (285-295); Potassium 4.3 mmol/L (3.5-5.1); Sodium 136 mmol/L (136-145); Total Bilirubin 0.4 mg/dL (0.15-1.2); Total Protein 6.8 g/dL (6.6-8.7)
[2020-02-14 13:00] LABS: Alcohol Level < 10 mg/dL (0-10)
[2020-02-14] MEDS: sodium chloride 0.9% 1,000 ML 100 ML IV (13:01)
[2020-02-14 13:04] LABS: Urine Appearance Clear (CLEAR); Urine Color Yellow (Yellow)
[2020-02-14 13:06] LABS: Bilirubin Urine Neg (NEGATIVE); Blood Urine Neg (Negative); Glucose Urine UA Norm (Normal); Ketones Urine Negative (Negative); Leukocyte Esterase Urine Negative (Negative); Nitrate Urine Negative (Negative); Protein Urine Neg (Negative); Urobilinogen Urine Norm (Negative); pH Urine 5 (5-7)
[2020-02-14 13:10] LABS: Amphetamines Screen Urine Negative (Negative); Barbiturates Screen Urine Positive (Negative); Benzodiazepines Screen Urine Positive (Negative); Cocaine Screen Urine Negative (Negative); Opiate Screen Urine Negative (Negative); PCP Screen Urine Negative (Negative); THC Screen Urine Negative (Negative)
[2020-02-14 13:12] LABS: Add Urine Culture? No; Bacteria Urine TRACE; Hyaline Casts Urine 0-4; Mucus Urine TRACE; Squamous Epithelial Cell Urine 0-4 (0-5)
[2020-02-14 13:23] LABS: Influenza A by IFA Negative (Negative); Influenza B by IFA Negative (Negative)
--- NOTE | 2020-02-14 14:01 | ECG_ITS ---
Measurements Intervals [place] Rate: 73 P: 55 MN: 198 QRS: -26 QRSD: 110 T: 6 QT: 402 QTc: 443 SINUS RHYTHM WITH FREQUENT VENTRICULAR PREMATURE COMPLEXES LOW QRS VOLTAGE IN PRECORDIAL LEADS INCOMPLETE RIGHT BUNDLE BRANCH BLOCK ST DEPRESSION, CONSIDER SUBENDOCARDIAL INJURY Compared to ECG 02/14/2020 12:08:18 Low QRS voltage now present Incomplete right bundle-branch block now present Myocardial infarct finding now present ST (T wave) deviation now present Left-axis deviation no longer present Right bundle-branch block no longer present Electronically Signed On 02-16-2020 9:56:59 CDT by Pauline Chiu M.D. [email or web address]
[2020-02-14] MEDS: acetaminophen 500 mg Tablet 1000 MG PO (14:33)
[2020-02-14] MEDS: sodium chloride 0.9% 1,000 ML 999 ML IV (14:35)
[2020-02-14 15:01] LABS: Troponin 5 2HR 19.96 ng/mL (0-15)
[2020-02-14 15:16] LABS: Troponin 5 2HR Delta -1.04 ABS# (0-10)
[2020-02-14 16:38] VITALS: BP 169/109; PULSE 78; RESP 17; O2SAT 99
--- NOTE | 2020-02-14 17:04 | PM.HP ---
Providers/Chief Complaint Admitting Physician: Mike Cali Primary Care Provider: Gautam Godoy Chief Complaint: WEAK History of Present Illness Renny Matos is a 80 year old male with history of memory issues/cognitive dysfunction, parkinson's disease, osteoarthritis, degenerative disc disease with history of hemilaminectomy/foraminotomy L3-L4 with limited discectomy, laminotomy/foraminotomy L2-L3 on 01/10, complicated by postoperative episode of delirium of unclear etiology, with finding also of left humeral impacted fracture, with polypharmacy, with many of his medications being discontinued/tapered off, with possible TIA episode during hospitalization for postoperative delirium during which had head CT, carotid Doppler, and other assessments, and was started on Plavix subsequently in addition to low-dose aspirin as well as high-dose statin. His delirium at that time had resolved, he was discharged over to [facility] for rehabilitation where he stayed until 01/31. He was treated with Tamiflu empirically prior to discharge due to outbreak at the facility. Amlodipine was added during that admission, and he was receiving tramadol up to 6 times a day, although this was being tapered off. He had unremarkable follow-up with neurosurgery on 02/06, and left shoulder x-ray was repeated with finding of healing changes of impacted fracture and mild degenerative arthritis of acromioclavicular joint with noted pain on follow-up with orthopedics in office 02/08. Orthopedic surgeon reviewing the images did not think he in fact had a fracture, and considered symptoms due to shoulder osteoarthritis. Consider measures were recommended, with possible CSI in case of failure. Today he is brought in to the emergency department by his daughter with concern of generalized weakness, lack of appetite over several days, nausea, with poor oral intake. They report they had googled the symptoms, and initially were considering perhaps a result of Tamiflu which was discontinued, and subsequently thought they may be secondary to Plavix which they discontinued after discussing with his primary care provider Dr. Saeed. They report he has been feeling cold, and was turning up the heat at home. They report his temperature was 99 Fahrenheit which they thought was considered a low-grade fever. Due to the symptoms he had a urinary test, and was treated for a suspected urinary tract infection with a course of Bactrim, although culture came back inconsistent with UTI when they discussed with his primary care provider. They report he has been sleeping a lot. This morning noted with labile affect, and reported hallucinations. In ER he underwent detailed work-up including head CT which showed moderate atrophy and chronic microvascular ischemic disease, ex vacuo ventriculomegaly. Poor inspiratory effort on chest x-ray. Mild acute kidney injury with creatinine 1.3, minimal troponin abnormality with RBBB on EKG, however, with very significant orthostatic hypotension: Blood pressure decreasing from 150-160 systolic down into 70 systolic on standing. With presyncopal symptoms. In the ER he has very labile affect, he is able to provide some history of his hallucinations from earlier today, and also appears to have some intermittent episodes during the visit. He is yawning frequently, and prefers to be covered up. Of note family have been decreasing how much tramadol he is getting per day. He reports that he still having some abdominal discomfort, although this is getting better. He states that it is somewhat all over , although is mostly in the lower abdomen. His alkaline phosphatase is mildly elevated at 137. Other liver parameters are normal. Lipase is not elevated. He has had poor oral intake, although is not having nausea or vomiting. He denies any pain elsewhere. Previously with severe shoulder pain, although this does not appear to be present currently. He is urinalysis is unremarkable. TSH is normal. CK is not elevated. Influenza rapid testing is negative. He received 1 L of IV fluid boluses in ER. Review of Systems Const: Reports: chills, change in appetite and other (Labile affect.); Denies: fever, body aches or malaise Eyes: Denies: change in vision or eye redness ENMT: Denies: throat pain, oral sores/lesions or ear pain Card: Denies: chest pain, edema, pre-syncope or shortness of breath on exertion Resp: Denies: shortness of breath, productive cough, change in phlegm color or coughing up blood GI: Reports: abdominal pain and nausea; Denies: vomiting, diarrhea, constipation, blood in stool or black tarry stool : Denies: flank pain, difficulty urinating, urinary frequency or blood in urine Musc: Denies: back pain, joint swelling or redness Skin/Breast: Denies: rash, sores or new lesion Neuro: Reports: headache (Daughter reports he had a headache earlier, he currently denies.), confusion and behavioral changes; Denies: numbness in extremities, weakness in extremities, dizziness or seizure-like activity Psych: Reports: memory loss and visual hallucinations Endo: Denies: excessive urination or excessive thirst Griffin/Lymph: Denies: easy bleeding or purpura All/Imm: Denies: hives, throat swelling or tongue swelling Medications/Allergies Home Medications Medication Instructions Recorded Confirmed Last Taken Type acetaminophen [Tylenol Extra 1,000 mg PO PRN 02/14/20 02/14/20 Unknown History Strength] amlodipine See Rx Instructions .ROUTE .COMPLEX 02/14/20 02/14/20 Unknown History carbidopa-levodopa 1 tab PO QID 02/14/20 02/14/20 02/13/20 History ibuprofen 400 mg PO PRN 02/14/20 02/14/20 02/13/20 History lidocaine HCl [Lidocaine Viscous] See Rx Instructions .ROUTE .COMPLEX 02/14/20 02/14/20 Unknown History polyethylene glycol 3350 [Miralax] 17 g PO DAILY PRN 02/14/20 02/14/20 Unknown History sulfamethoxazole-trimethoprim 1 tab PO Q12H 02/14/20 02/14/20 02/12/20 History [Bactrim DS] Allergies Allergy/AdvReac Type Severity Reaction Status Date / Time hydrocodone Allergy HALLUCINATI Verified 02/05/20 15:10 ONS zonisamide [From Zonegran] Allergy HIVES Verified 02/05/20 15:10 metoprolol AdvReac BRADYCARDIA Verified 02/05/20 15:10 Penicillins AdvReac UNKNOWN Verified 02/05/20 15:10 pravastatin AdvReac MUSCLE PAIN Verified 02/05/20 15:10 PFSH Acute PFSH: Medical History (Updated 02/14/20 @ 18:18 by Mike Cali MD) Arthritis of left acromioclavicular joint Chronic pain Osteoarthritis of left glenohumeral joint Parkinson's disease Continue home medicines Prostate CA Radioactive seed implant 2009 Surgical History H/O elbow surgery S/P cataract extraction BILATERAL S/P cholecystectomy S/P shoulder surgery S/P tonsillectomy and adenoidectomy Status post lumbar surgery 01/10/2020 Dr. Tamia Foley. Bilateral L3-L4 hemilaminotomy/foraminotomy, with limited discectomy. Bilateral L2-L3 laminotomy/foraminotomy. Family History Mother No problems noted. Grandmother CAD (coronary artery disease) Cancer Myocardial infarct Family/Other Hypertension Social History Smoking and tobacco status: never smoked Alcohol intake: never Household members: family and children Marital status: / Current occupational status: retired History of recent travel: No Vitals/I&O/Wt Last Vital Signs Temp 99.0 F 02/14/20 11:50 Pulse 78 02/14/20 16:38 Resp 17 02/14/20 16:38 BP 169/109 02/14/20 16:38 Pulse Ox 99 02/14/20 16:38 Weight last 48 hrs Weight 72.575 kg Physical Exam Const: COMMON NORMALS: no apparent distress, oriented x3 and alert (Interactive. Conversant.) EXAM LIMITATIONS: altered mental status (Labile affect. Starts crying when he starts thinking about (or is seeing) hallucinations.) OTHER: Answers questions, follows commands, but frequently goes up on tenderness. HENMT: COMMON NORMALS: oropharynx normal Neck/C-Spine: COMMON NORMALS: no JVD Resp: COMMON NORMALS: normal respiratory effort and clear to auscultation bilaterally AUSCULTATION: clear to auscultation bilaterally Cardio: COMMON NORMALS: no JVD, regular rhythm, S1 normal heart sound, S2 normal heart sound and no murmurs RHYTHM: regular rhythm HEART SOUNDS: S1 normal and S2 normal GI: COMMON NORMALS: normal to inspection, nondistended, normoactive bowel sounds and soft to palpation PALPATION: Yes soft and Yes tender (Epigastric on the palpation, as well as mildly tender to palpation of hypogastrium) Extremity: COMMON NORMALS: no joint enlargement and no pedal edema Neuro: COMMON NORMALS: oriented x3 and moves all extremities Skin: COMMON NORMALS: no rashes or lesions noted GENERAL SKIN EXAM: no rashes or lesions noted Data : 02/14/20 12:12 02/14/20 12:12 Micro: Microbiology 02/14/20 12:14 Blood Culture - Preliminary Blood SPECIMEN COLLECTED 02/14/20 12:12 Blood Culture - Preliminary Blood SPECIMEN COLLECTED A&P Assessment and plan (1) Delirium: With labile affect, hallucinations, anxiety, recently sleeping quite a bit per family, during my examination he is having some chills, gooseflesh, yawning. Appears to have recurrence of delirium, with episode postoperatively as well. Not very revealing pretty detailed work-up done in ER, with unremarkable studies for acute infection, he is afebrile, without leukocytosis, no tachycardia, no suggestion of pneumonia, UTI. He is having some abdominal discomfort, recently nausea. Suspect gastritis related to NSAIDs, also with concomitant dehydration. He is also noted to be very severely orthostatic with blood pressure systolic decreasing from 160 down to 70 and standing up. Alkaline phosphatase is very mildly elevated, likely due to dehydration, with normal other liver parameters. Right upper quadrant is nontender. He has some tenderness on the palpation epigastrium, and mild tenderness on hypogastrium. We will go ahead and obtain CT abdomen pelvis to rule out additional causes that may be contributing to acute delirium. Blood culture has been collected. He is started on PPI, sucralfate. Ibuprofen is discontinued. I am not convinced that this is infected acute delirium, and with history of chronic progressive cognitive decline, with parkinsonism, I suspect whether he may have another underlying condition which is at least contributing or perhaps responsible for his recurrent symptoms. He is feeling cold reportedly, in ER with anxiety, labile affect, appears to be yawning quite a bit. Family have been tapering down his tramadol dosing recently as he was taking up to 6-8 tablets/day, and they have been trying to decrease how much he is taking. Potentially opiate withdrawal could play a role in his symptoms as well. For now will schedule tramadol 3 times daily unless he is lethargic. His TSH is normal. Rapid influenza is negative. We will also try to address his severe orthostatic symptoms. Discontinue multipin. We will hold Sinemet at this time. He will be able to follow-up with neurology next week in office. Status: Acute Code(s): R41.0 - Disorientation, unspecified (2) Nausea: Suspect NSAID induced gastritis. Discussed with him and daughter to discontinue ibuprofen. We will start him on PPI. Sucralfate. Status: Acute Code(s): R11.0 - Nausea (3) Dehydration: Has had poor oral intake, with with dehydration, orthostatic symptoms, mild acute kidney injury. Received 1 L IV fluid. Continue infusion overnight. Status: Acute Code(s): E86.0 - Dehydration (4) Orthostatic hypotension: Very severe. Hold Sinemet. Discontinue amlodipine. Treat dehydration. Status: Acute Code(s): I95.1 - Orthostatic hypotension (5) Acute kidney injury: This appears may be combination of dehydration, with prerenal acute kidney injury, blood pressure swings with orthostatic hypotension, but also ibuprofen. This will be discontinued. Receiving fluid challenge. Monitor renal function. Status: Acute Code(s): N17.9 - Acute kidney failure, unspecified (6) Alkaline phosphatase elevation: Suspect this is related to dehydration, and should resolve. Will check GGT. Status: Acute Code(s): R74.8 - Abnormal levels of other serum enzymes (7) Shoulder arthritis: Reported impacted fracture, but on review of imaging by orthopedic surgeon no fracture seen. Previously with persistent severe pain. Consideration may be given to outpatient assessment by MRI and continued follow up with orthopedics. Daughter in agreement with plan. Status: Acute Code(s): M19.019 - Primary osteoarthritis, unspecified shoulder Attestations Medical Necessity Statement*: Place in observation. Coding Level of Care Code Acute [employer] for g Fwd Diagnoses Delirium R41.0 Nausea R11.0 Dehydration E86.0 Orthostatic hypotension I95.1 Acute kidney injury N17.9 Alkaline phosphatase elevation R74.8 Shoulder arthritis M19.019
--- NOTE | 2020-02-14 17:18 | CTR_ITS ---
PROCEDURE INFORMATION: Exam: CT Abdomen And Pelvis Without Contrast Exam date and time: 02/14/2020 5:20 PM Age: 80 years old Clinical indication: Abdominal pain; Patient HX: Generalized abd pain TECHNIQUE: Imaging protocol: Computed tomography of the abdomen and pelvis without contrast. Total DLP: 810.82 mGy-cm Radiation optimization: All CT scans at this facility use at least one of these dose optimization techniques: automated exposure control; mA and/or kV adjustment per patient size (includes targeted exams where dose is matched to clinical indication); or iterative reconstruction. COMPARISON: No relevant prior studies available. FINDINGS: Liver: No mass. Gallbladder and bile ducts: Status post cholecystectomy. Pancreas: No ductal dilation. Spleen: No splenomegaly. Adrenals: No mass. Kidneys and ureters: No hydronephrosis. Stomach and bowel: Large amount of stool noted in the colon. No bowel obstruction. Appendix: No evidence of appendicitis. Intraperitoneal space: No free air. No significant fluid collection. Vasculature: No abdominal aortic aneurysm. Lymph nodes: No enlarged lymph nodes. Bladder: Unremarkable as visualized. Reproductive: Prostatic seeds are noted. Bones/joints: Degenerative changes of the lumbar spine. Soft tissues: Unremarkable. In CT/CT abdomen pelvis wo con [id number] IMPRESSION: No acute findings. Radiation Dose CTDIVOL = (mGy): DLP = 810.82 (mGy-cm)
[2020-02-14] MEDS: pantoprazole 40 mg SDV IVP (18:44)
[2020-02-14] MEDS: heparin 5,000 unit/mL INJ 1 mL 5000 UNIT SUBCUT (18:46)
[2020-02-14] MEDS: sodium chloride 0.9% 1,000 ML 150 ML IV (18:49)
[2020-02-14 18:54] LABS: Troponin 5 6HR 21.45 ng/mL (0-15); Troponin 5 6HR Delta 0.45 ng/L (0-12)
[2020-02-14 20:00] VITALS: BP 158/62; PULSE 75; RESP 18; TEMP 36.8; O2SAT 96
[2020-02-14 20:15] LABS: Gamma Glutamyl Transferase 37 U/L (8-61)
[2020-02-14] MEDS: sucralfate 1 gm/10 mL Oral Liq UDC PO (21:36)
[2020-02-14] MEDS: TRAMadol 50 mg Tablet PO (21:36)
[2020-02-14] MEDS: primidone 50 mg Tablet 100 MG PO (21:36)
[2020-02-14 23:30] VITALS: BP 137/71; PULSE 65; RESP 17; TEMP 36.9; O2SAT 93
[2020-02-15] MEDS: sodium chloride 0.9% 1,000 ML 150 ML IV ×2 (02:27→08:45)
[2020-02-15 04:00] VITALS: BP 169/67; PULSE 67; RESP 19; TEMP 37.1; O2SAT 94
[2020-02-15] MEDS: sucralfate 1 gm/10 mL Oral Liq UDC PO ×2 (06:03→10:26)
[2020-02-15] MEDS: heparin 5,000 unit/mL INJ 1 mL 5000 UNIT SUBCUT (06:03)
[2020-02-15] MEDS: pantoprazole 40 mg SDV IVP (06:03)
[2020-02-15 06:21] LABS: Basophils % 0.5 %; Eosinophils # 0.1 10^3/uL (0.0-0.8); Eosinophils % 2.1 %; Hemoglobin 11.6 g/dL (11.7-16.6); Lymphocytes # 2.3 10^3/uL (0.8-4.8); Lymphocytes % 34.4 %; Mean Corpuscular HGB Conc 32.2 g/dL (30.0-36.0); Mean Corpuscular Hemoglobin 30.5 pg (28.0-34.0); Mean Corpuscular Volume 94.7 fL (80-94); Mean Platelet Volume 11.2 fL (7.4-10.4); Monocytes # 0.5 10^3/uL (0.2-0.9); Monocytes % 7.8 %; Neutrophils # 3.7 10^3/uL (1.8-7.7); Nucleated Red Blood Cells % 0 %; Platelet Count 155 10^3/cmm (130-400); Red Cell Distribution Width 13.1 % (12.1-15.1); White Blood Count 6.7 10^3/uL (4.0-10.0)
[2020-02-15 06:38] LABS: Anion Gap 14.2 (5-19); Blood Urea Nitrogen 11 mg/dL (8-23); Carbon Dioxide 22 mmol/L (22-29); Chloride 109 mmol/L (98-107); Glucose 109 mg/dL (65-115); Osmolality Calculated 289 mOsm/kg (285-295); Potassium 4.2 mmol/L (3.5-5.1); Sodium 141 mmol/L (136-145)
[2020-02-15 08:00] VITALS: BP 160/80; PULSE 70; RESP 18; TEMP 36.2; O2SAT 100
[2020-02-15] MEDS: TRAMadol 50 mg Tablet PO (08:43)
[2020-02-15] MEDS: clopidogrel 75 mg Tablet PO (08:43)
[2020-02-15] MEDS: aspirin 81 mg EC Tablet PO (08:43)
[2020-02-15 11:18] VITALS: BP 147/84; BP 158/74; BP 181/72; PULSE 68; PULSE 69
--- NOTE | 2020-02-15 11:33 | PC.NURSE ---
lying BP 181/72 Lying Pulse 69 Sitting BP158/74 Sitting Pulse 68 Standing BP147/84 Sitting Pulse 68
[2020-02-15 12:00] VITALS: BP 147/81; PULSE 69; RESP 20; TEMP 36.6; O2SAT 96
--- NOTE | 2020-02-15 12:48 | PM.DCS ---
Discharge Providers Date of Admission: 02/14/20 15:18 Date of Discharge: February 15, 2020 Attending Provider at Admission: Mike Cali Attending Provider at Discharge: Mike Cali Primary Care Provider: Gautam Godoy Diagnoses at Discharge Discharge Diagnosis (1) Delirium: Status: Acute (2) Nausea: Status: Acute (3) Dehydration: Status: Acute (4) Orthostatic hypotension: Status: Acute (5) Acute kidney injury: Status: Acute (6) Alkaline phosphatase elevation: Status: Acute (7) Shoulder arthritis: Status: Acute Reason for Visit Reason for Visit: Reason For Visit: WEAK Hospital Course Hospital Course: Renny Matos is a 80 year old male with history of mild memory issues/cognitive dysfunction, parkinson's disease, osteoarthritis, degenerative disc disease with history of hemilaminectomy/foraminotomy L3-L4 with limited discectomy, laminotomy/foraminotomy L2-L3 on 01/10, complicated by postoperative episode of delirium of unclear etiology, with finding also of left humeral impacted fracture, with polypharmacy, with many of his medications being discontinued/tapered off, with possible TIA episode during hospitalization for postoperative delirium during which had head CT, carotid Doppler, and other assessments, and was started on Plavix subsequently in addition to low-dose aspirin as well as high-dose statin. His delirium at that time had resolved. Per discussion with physician at the time, seemed to rememeber everything from his episode of TIA/unresponsiveness which also resolved uneventfully. He was discharged over to [facility] [place] [facility] where he stayed until 01/31. He was treated with Tamiflu empirically prior to discharge due to outbreak at the facility. Amlodipine was added during that admission, and he was receiving tramadol up to 6 times a day, although this was being tapered off. He had unremarkable follow-up with neurosurgery on 02/06, and left shoulder x-ray was repeated with finding of healing changes of impacted fracture and mild degenerative arthritis of acromioclavicular joint with noted pain on follow-up with orthopedics in office 02/08. Orthopedic surgeon reviewing the images did not think he in fact had a fracture, and considered symptoms due to shoulder osteoarthritis. Consider measures were recommended, with possible CSI in case of failure. Today he is brought in to the emergency department by his daughter with concern of generalized weakness, lack of appetite over several days, nausea, with poor oral intake. They report they had googled the symptoms, and initially were considering perhaps a result of Tamiflu which was discontinued, and subsequently thought they may be secondary to Plavix which they discontinued after discussing with his primary care provider Dr. Saeed. They report he has been feeling cold, and was turning up the heat at home. They report his temperature was 99 Fahrenheit which they thought was considered a low-grade fever. Due to the symptoms he had a urinary test, and was treated for a suspected urinary tract infection with a course of Bactrim, although culture came back inconsistent with UTI when they discussed with his primary care provider. They report he has been sleeping a lot. This morning noted with labile affect, and reported hallucinations which were present on admission as well. In ER he underwent detailed work-up including head CT which showed moderate atrophy and chronic microvascular ischemic disease, ex vacuo ventriculomegaly. Poor inspiratory effort on chest x-ray without any respiratory symptoms. Mild acute kidney injury with creatinine 1.3 resolved with fluid challenge, minimal troponin abnormality with RBBB on EKG, however, with very significant orthostatic hypotension: Blood pressure decreasing from 150-160 systolic down into 70 systolic on standing. With presyncopal symptoms. In the ER he has very labile affect, able to provide some history of his hallucinations from earlier. Yawning frequently, and prefers to be covered up. Of note family have been decreasing how much tramadol dosing, leading to suspicion that he may have been having withdrawal given the above symptoms. While in the hospital was maintained on 3 times daily tramadol, and family were instructed to taper off tramadol gradually with eventual goal of discontinuation. He was having some abdominal discomfort, all over , although mostly in the lower abdomen. CT of abdomen pelvis was unremarkable, and this resolved overnight. His alkaline phosphatase is mildly elevated at 137 thought to be due to dehydration, with normal GGT. Other liver parameters are normal. This may need to be followed up for resolution. Lipase was not elevated. He has had poor oral intake the day prior, with nausea, and is suspected to have developed NSAID induced gastritis. Family were counseled to discontinue ibuprofen, he started on PPI and sucralfate, currently with symptoms resolved. Please follow-up and refer for additional work-up in case of persistent symptoms. He denies any pain elsewhere. Previously with severe shoulder pain, although this does not appear to be present currently. He is urinalysis is unremarkable. TSH is normal. CK is not elevated. Influenza rapid testing is negative. Blood culture was collected, and will need to be followed up. Acute kidney injury resolved. Amlodipine was discontinued due to severe orthostasis, and Sinemet was held, and at this time dose will be reduced in half until he can follow-up with neurology in office next week. He may have a degree of supine hypertension which perhaps may need to be accepted to avoid severe orthostatic changes with standing. His shoulder pain appears to have improved from prior, although family were still worried about recurrent intermittent pain. With question of whether or not there may have been fracture we will refer him for additional assessment by outpatient MRI. It is not entirely clear what specifically led to current episode of delirium, however, appears it may have been dehydration, severe orthostasis, tramadol use with possible withdrawal, perhaps recent Bactrim course, and polypharmacy in general. Caution will need to be used in any additional medications in the future as he appears to be very sensitive to changes and as discussed with family at very high risk of delirium. Discussed also with family with his chronic, although mild cognitive decline, in the setting of parkinsonism, and recently recurrent episodes of confusion, labile affect, personality changes and hallucinations, there is concern for possible other underlying causes, possibly Lewy body dementia. Physical Exam Const: COMMON NORMALS: no apparent distress, oriented x3 and alert (Interactive. Conversant.) EXAM LIMITATIONS: altered mental status (Labile affect. Starts crying when he starts thinking about (or is seeing) hallucinations.) OTHER: Answers questions, follows commands, but frequently goes up on tenderness. HENMT: COMMON NORMALS: oropharynx normal Neck/C-Spine: COMMON NORMALS: no JVD Resp: COMMON NORMALS: normal respiratory effort and clear to auscultation bilaterally AUSCULTATION: clear to auscultation bilaterally Cardio: COMMON NORMALS: no JVD, regular rhythm, S1 normal heart sound, S2 normal heart sound and no murmurs RHYTHM: regular rhythm HEART SOUNDS: S1 normal and S2 normal GI: COMMON NORMALS: normal to inspection, nondistended, normoactive bowel sounds and soft to palpation PALPATION: Yes soft and Yes tender (Epigastric on the palpation, as well as mildly tender to palpation of hypogastrium) Extremity: COMMON NORMALS: no joint enlargement and no pedal edema Neuro: COMMON NORMALS: oriented x3 and moves all extremities SENSORIUM/ORIENTATION: Yes alert (Interactive. Conversant.) Skin: COMMON NORMALS: no rashes or lesions noted GENERAL SKIN EXAM: no rashes or lesions noted Discharge Data Data Completed and Pending: Completed Studies During Hospitalization Category Date Time Status CT abdomen pelvis wo con [id number] Rout ine Cat Scan 02/14/20 17:[address] head wo con* [id number] Urgent Cat Scan 02/14/20 12:00 Completed XR chest 1V vernon ble [id number] Stat Exams 02/14/20 12:00 Completed Pending at discharge Category Date Time Status Blood Culture Sta t Lab 02/14/20 12:14 Results Urine Culture Sta t Lab 02/14/20 12:46 Results Labs from last 24 hours 02/15/20 02/15/20 02/14/20 05:50 05:50 18:28 WBC 6.7 RBC 3.80 L Hgb 11.6 L Hct 36.0 L MCV 94.7 H MCH 30.5 MCHC 32.2 RDW 13.1 Plt Count 155 MPV 11.2 H Neut % (Auto) 55.0 Lymph % (Auto) 34.4 [place] % (Auto) 7.8 Eos % (Auto) 2.1 Baso % (Auto) 0.5 Neut # (Auto) 3.7 Lymph # (Auto) 2.3 [place] # (Auto) 0.5 Eos # (Auto) 0.1 Baso # (Auto) 0.0 Nucleated RBC % (a uto) 0 Nucleated RBCs # 0.0 Sodium 141 Potassium 4.2 Chloride 109 H Carbon Dioxide 22 Anion Gap 14.2 BUN 11 Creatinine 1.0 Glucose 109 Calculated Osmolal ity 289 Calcium 9.0 Magnesium Total Bilirubin GGT 37 AST ALT Alkaline Phosphata se Creatine Kinase Troponin I 6 Hour Troponin I Hi Sens Del Troponin T 120 Min [place] Troponin T Total Protein Albumin Globulin Lipase TSH Urine Color Urine Appearance Urine pH Ur Specific Gravit y Urine Protein Urine Glucose (UA) Urine Ketones Urine Blood Urine Nitrate Urine Bilirubin Urine Urobilinogen Ur Leukocyte [place] ase Urine RBC Urine WBC Ur Squamous Epith Cells Urine Bacteria Hyaline Casts Urine Mucus Urine Opiates Scre en Ur Barbiturates Sc reen Ur Phencyclidine S crn Ur Amphetamines Sc reen U Benzodiazepines Scrn Urine Cocaine Scre en U Marijuana (THC) Screen Ethyl Alcohol Influenza Type A A g POC Influenza B Ag 02/14/20 02/14/20 02/14/20 18:28 14:15 12:46 WBC RBC Hgb Hct MCV MCH MCHC RDW Plt Count MPV Neut % (Auto) Lymph % (Auto) [place] % (Auto) Eos % (Auto) Baso % (Auto) Neut # (Auto) Lymph # (Auto) [place] # (Auto) Eos # (Auto) Baso # (Auto) Nucleated RBC % (a uto) Nucleated RBCs # Sodium Potassium Chloride Carbon Dioxide Anion Gap BUN Creatinine Glucose Calculated Osmolal ity Calcium Magnesium Total Bilirubin GGT AST ALT Alkaline Phosphata se Creatine Kinase Troponin I 6 Hour 21.45 H Troponin I Hi Sens Del 0.45 Troponin T 120 Min [place] 19.96 H Delta Troponin T -1.04 L Total Protein Albumin Globulin Lipase TSH Urine Color Urine Appearance Urine pH Ur Specific Gravit y Urine Protein Urine Glucose (UA) Urine Ketones Urine Blood Urine Nitrate Urine Bilirubin Urine Urobilinogen Ur Leukocyte [place] ase Urine RBC Urine WBC Ur Squamous Epith Cells Urine Bacteria Hyaline Casts Urine Mucus Urine Opiates Scre en Negative Ur Barbiturates Sc reen Positive H Ur Phencyclidine S crn Negative Ur Amphetamines Sc reen Negative U Benzodiazepines Scrn Positive H Urine Cocaine Scre en Negative U Marijuana (THC) Screen Negative Ethyl Alcohol Influenza Type A A g POC Influenza B Ag 02/14/20 02/14/20 02/14/20 12:46 12:45 12:12 WBC RBC Hgb Hct MCV MCH MCHC RDW Plt Count MPV Neut % (Auto) Lymph % (Auto) [place] % (Auto) Eos % (Auto) Baso % (Auto) Neut # (Auto) Lymph # (Auto) [place] # (Auto) Eos # (Auto) Baso # (Auto) Nucleated RBC % (a uto) Nucleated RBCs # Sodium 136 Potassium 4.3 Chloride 102 Carbon Dioxide 20 L Anion Gap 18.3 BUN 14 Creatinine 1.3 H Glucose 141 H Calculated Osmolal ity 281 L Calcium 9.8 Magnesium 2.2 Total Bilirubin 0.4 GGT AST 20 ALT 26 Alkaline Phosphata se 137 H Creatine Kinase 50 Troponin I 6 Hour Troponin I Hi Sens Del Troponin T 120 Min [place] Troponin T Total Protein 6.8 Albumin 4.2 Globulin 2.6 Lipase 12 L TSH 1.20 Urine Color Yellow Urine Appearance Clear Urine pH 5 Ur Specific Gravit y 1.020 Urine Protein Neg Urine Glucose (UA) Norm Urine Ketones Negative Urine Blood Neg Urine Nitrate Negative Urine Bilirubin Neg Urine Urobilinogen Norm Ur Leukocyte [place] ase Negative Urine RBC None Urine WBC None Ur Squamous Epith Cells 0-4 H Urine Bacteria Trace Hyaline Casts 0-4 H Urine Mucus Trace Urine Opiates Scre en Ur Barbiturates Sc reen Ur Phencyclidine S crn Ur Amphetamines Sc reen U Benzodiazepines Scrn Urine Cocaine Scre en U Marijuana (THC) Screen Ethyl Alcohol < 10 Influenza Type A A g Negative POC Influenza B Ag Negative Vitals: Last Vital Signs Temp 97.8 F 02/15/20 12:00 Pulse 69 02/15/20 12:00 Resp 20 H 02/15/20 12:00 BP 147/81 02/15/20 12:00 Pulse Ox 96 02/15/20 12:00 Discharge Plan Discharge Patient Disposition: Home Health Service Condition: Stable Prescriptions: New sucralfate 100 mg/mL Suspension 1 g PO AC&BEDTIME Qty: 420 RF: 0 pantoprazole 40 mg tablet,delayed release (DR/EC) 40 mg PO DAILY 42 Days Qty: 42 RF: 0 Continued primidone 50 mg tablet 100 mg PO BEDTIME RF: 0 aspirin [Aspirin Low Dose] 81 mg tablet,delayed release (DR/EC) 81 mg PO DAILY Qty: 30 RF: 0 tramadol 50 mg tablet 50 mg PO TID PRN (Reason: pain) Qty: 20 RF: 0 clopidogrel [Plavix] 75 mg tablet 75 mg PO DAILY Qty: 30 RF: 0 Tylenol Extra Strength 500 mg Tablet 1,000 mg PO PRN RF: 0 Lidocaine Viscous 2 % Solution See Rx Instructions .ROUTE .COMPLEX RF: 0 Miralax 17 gram powder in packet 17 g PO DAILY PRN (Reason: Constipation) RF: 0 Changed carbidopa-levodopa 25-100 mg tablet 0.5 tab PO QID Qty: 0 RF: 0 Held losartan 100 mg tablet 50 mg PO DAILY RF: 0 Hold Instructions: Resume on 02/29/20. Discontinued ranitidine HCl 300 mg tablet 300 mg PO BID RF: 0 sulfamethoxazole-trimethoprim [Bactrim DS] 800-160 mg Tablet 1 tab PO Q12H RF: 0 ibuprofen 200 mg Tablet 400 mg PO PRN RF: 0 amlodipine 10 mg tablet See Rx Instructions .ROUTE .COMPLEX RF: 0 Discharge Orders: Discharge Order (Routine); Ordered 02/15/20 Ordered By: Mike Cali Other Ambulatory Orders: MR shoulder LT wo con* [id number] (Routine) Timeframe: 1 Week Facility: [facility] - Location: Radiology [facility] Ordered By: Mike Cali Referrals: Vandana Cotto MD [Physician] - 4-7 days ([facility] [facility] [place] you with your appointment. If possible appointment later in the day. ) Gautam Godoy [Primary Care Provider] - 02/20/20 11:30 am (Delirium episode. YESSICA. Weaning off tramadol. Shoulder pain. Severe orthostatic hypertension. NSAID gastritis. Alk phos elevation. ) Valentin Foley MD [Physician] - 02/20/20 4:00 pm (As previously scheduled) Jan Pendleton DO [Physician] - 02/29/20 8:45 am (Follow up as previously scheduled on L shoulder) Discharge Diet: Cardiac Discharge Activity: Increase activity as tolerated and Limit activity as instructed Patient Instructions: Sucralfate (By mouth), Pantoprazole (By mouth), Dehydration (DC) Activity Restrictions/Additional Instructions: Avoid dehydration. Maintain strict orthostatic precautions, rise slowly from laying to sitting and sitting to standing. Be prepared to sit down or lie down in case getting dizzy or faint. Blood pressure may be slightly elevated while laying down to prevent significant decrease while standing. Avoid amlodipine as blood pressure medication as this may contribute to orthostatic blood pressure. Sinemet for now not held entirely but dose is decreased at least until he can be reassessed by neurology in office. Avoid any NSAIDs like ibuprofen, Aleve, etc. due to acute kidney injury. If nausea, dyspepsia persist despite treatment with pantoprazole, discuss with your primary care doctor regarding additional evaluation of the dyspepsia. Discuss with your primary doctor to follow up final blood culture results. For now continue tramadol 3 times a day, gradually taper down with goal to discontinue entirely. After 5-6 days decrease to twice a day, then after another 5-6 days down to 1 a day for another 5 days, then stop. 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
[2020-02-15 13:02] VITALS: BP 147/81; PULSE 69; RESP 20; TEMP 36.6; O2SAT 96
[2020-02-15 13:27] VITALS: BP 147/81; PULSE 69; RESP 20; TEMP 36.6; O2SAT 96
== END 2020-02-15 13:28 | disposition home health service (06) ==
LOC: ER 15:22 → MEDSURG 15:53
PROVIDERS: Admitting Provider Internal Medicine; Emergency Provider Emergency Medicine; Family Provider Internal Medicine; PCP Internal Medicine; Visit Provider Internal Medicine
DX: R41.0 Disorientation, unspecified (principal); R11.0 Nausea; E86.0 Dehydration; I95.1 Orthostatic hypotension; N17.9 Acute kidney failure, unspecified; R74.8 Abnormal levels of other serum enzymes; M19.019 Primary osteoarthritis, unspecified shoulder; Z85.46 Personal history of malignant neoplasm of prostate; Z82.49 Family history of ischemic heart disease and other diseases of the circulatory system; Z83.3 Family history of diabetes mellitus
CPT/HCPCS: 12345; 36415; 70450; 71045; 74176; 80048; 80053; 80306; 80307; 81001; 82009; 82140; 82550; 82977; 83605; 83690; 83735; 84443; 84484; 85025; 87040; 87086; 87804; 93005; 96360; 96361; 96372; 96375; 99283; 99285; C9113; G0378; J1644; J7030

== ENCOUNTER 2020-03-05 13:32 | Outpatient (CLI) | payer OTHER, SELFPAY ==
--- NOTE | 2020-03-05 | MR_ITS ---
WS: [id number] MRI LEFT SHOULDER NONCONTRAST TECHNIQUE: Sagittal T2, coronal T1, T2 and proton density imaging. Axial gradient PDE imaging. CLINICAL INFORMATION: PAIN, POSS FX COMPARISON: Radiograph February 06January 12, 2020 FINDINGS: Advanced degenerative arthritis at the AC joint with hypertrophic changes. Small amount of edema. Mil d downsloping of the acromion. Subacromial spurring. Normal bone marrow signal in the humerus. No eric dence of acute or healing fracture. Moderate to advanced degenerative changes at the glenohumeral jeremias nt with joint space narrowing. Tiny insertional tear at the supraspinatus insertion. Tendinopathy in the supraspinatus and infraspin atus. Tiny amount of subacromial/subdeltoid fluid. Normal teres minor. Intrasubstance partial tear in volving the distal subscapularis with edema. Biceps tendon intact within the bicipital groove. Tendinopathy intra-articular biceps tendon. Chronic degenerative fraying of the glenoid labrum. Small SLAP tear involving the anterosuperior glenoid lab rum. Biceps labral anchor appears intact. Chronic appearing labral tear involving the posterior infer ior glenoid labrum. MR/MR shoulder LT wo con* [id number] IMPRESSION: 1. No evidence of humeral neck fracture or healing fracture. 2. Advanced degenerative arthritis at the AC joint and glenohumeral joint. Tano ma at the AC joint. 3. Tendinopathy with tiny insertional tear at the supraspinatus. Tendinopathy infraspinatus. 4. Acute appearing intrasubstance tear involving the distal subscapularis tend on with edema. 5. Biceps tendon intact within the bicipital groove. 6. Small labral SLAP tear with additional chronic appearing posterior inferior labral tear. 7. Normal biceps labral anchor.
== END 2020-03-05 13:33 | disposition home or self-care (01) ==
LOC: RADWPI 13:36
PROVIDERS: Family Provider Internal Medicine; PCP Internal Medicine; Visit Provider Internal Medicine
DX: M25.512 Pain in left shoulder (principal); M19.012 Primary osteoarthritis, left shoulder; M75.102 Unspecified rotator cuff tear or rupture of left shoulder, not specified as traumatic; S43.432A Superior glenoid labrum lesion of left shoulder, initial encounter; X58.XXXA Exposure to other specified factors, initial encounter
CPT/HCPCS: 73221

== ENCOUNTER → 2020-04-08 11:18 | Outpatient (BNVA) | payer OTHER, MEDICARE, SELFPAY | PROVIDERS: Family Provider Internal Medicine; PCP Internal Medicine; Referring Provider Internal Medicine; Visit Provider Specialist | DX: G31.83 Neurocognitive disorder with Lewy bodies (principal); F02.80 Dementia in other diseases classified elsewhere, unspecified severity, without behavioral disturbance, psychotic disturbance, mood disturbance, and anxiety | CPT/HCPCS: 99215 ==

== ENCOUNTER 2020-05-27 09:27 | Outpatient (CLI) | payer OTHER, SELFPAY ==
--- NOTE | 2020-05-27 09:30 | XR_ITS ---
WS: [id number] LUMBAR SPINE FLEXION AND EXTENSION TECHNIQUE: 3 views of the lumbar spine: Lateral neutral, flexion, and extension views. CLINICAL INFORMATION: lumbar pain FINDINGS: Trace retrolisthesis L4 on L5. No instability on flexion-extension. Disc space narrowing worse at L1- 2. Moderate facet arthropathy L5-S1. Anterior hypertrophic changes lower thoracic spine. Slight compr ession L1 superior endplate. XR/XR lumbar spine f/e only [id number] IMPRESSION: 1. No instability on flexion-extension 2. Mild compression L1 superior endplate discussed on the accompanying MRI.
--- NOTE | 2020-05-27 09:41 | MR_ITS ---
WS: [id number] MRI LUMBAR SPINE WITH CONTRAST TECHNIQUE: Sagittal T1, T2 and STIR imaging. Axial T1 and T2 imaging. Post gadolinium imaging was obt ained. CLINICAL INFORMATION: LUMBAR PAIN COMPARISON: CT January 12, 2020 and MRI October 23, 2019 FINDINGS: Mild lumbar curve. Mild acute compression fracture involving the superior endplate of L1 with edema. Minimal loss vertebral body height. No retropulsion. No other recent appearing compression fractures. Prior postoperative changes L2-3 and L3-4 laminectomies with normal postoperative enhancement. No dr ainable fluid collections. L1-L2: Normal. L2-L3: Mild disc bulging with narrowing of the subarticular recess bilaterally. Impingement traversin g L3 nerve roots. Moderate facet arthropathy. Mild left and no significant right foraminal narrowing. L3-L4: Mild disc osteophyte complex with slight narrowing of the subarticular recess bilaterally. Mil d to moderate facet arthropathy. Mild left greater than right foraminal narrowing. L4-L5: Mild disc bulging and osteophytic ridging. Moderate central canal stenosis. Impingement martine sing L5 nerve roots bilaterally. Mild left foraminal narrowing. Moderate facet arthropathy with small facet effusions. Ligamentum flavum hypertrophy. L5-S1: Mild annular bulging with slight effacement of the ventral thecal sac. Moderate facet arthropa thy. Small facet effusions. Mild to moderate right bony foraminal narrowing. Left foramen is patent. Bilateral renal cortical atrophy. Normal visualized aorta. Cervical and thoracic canal are patent on professional sports [employer] imaging MR/MR lumbar spine wo/w con [id number] IMPRESSION: 1. Mild lumbar curve. Prior postoperative changes L2-L3 and L3-L4 with laminec aldo defects. Normal postoperative enhancement. No drainable fluid collections. 2. Mild ACUTE APPEARING COMPRESSION superior endplate L1 with mild edema. Mini mal loss vertebral body height. No retropulsion. 3. Moderate central canal stenosis L4-5 due to mild disc bulging with facet ar thropathy and ligament flavum hypertrophy. Impingement traversing L5 nerve root s bilaterally. Moderate facet arthropathy. 4. Mild to moderate right L5-S1 bony foraminal narrowing. 5. Moderate facet arthropathy L4-L5 and L5-S1 with small facet effusions and e nhancement consistent with synovitis.
== END 2020-05-27 09:28 | disposition home or self-care (01) ==
PROVIDERS: Family Provider Internal Medicine; PCP Internal Medicine; Visit Provider Specialist
DX: M54.5 Low back pain (principal); M96.1 Postlaminectomy syndrome, not elsewhere classified; R60.9 Edema, unspecified; M48.061 Spinal stenosis, lumbar region without neurogenic claudication; M47.816 Spondylosis without myelopathy or radiculopathy, lumbar region
CPT/HCPCS: 72120; 72158; A9579

== ENCOUNTER → 2020-06-10 14:54 | Outpatient (BNVA) | payer OTHER, MEDICARE, SELFPAY | PROVIDERS: Family Provider Internal Medicine; PCP Internal Medicine; Visit Provider Specialist | DX: G20 Parkinson's disease (principal); G31.83 Neurocognitive disorder with Lewy bodies; F02.80 Dementia in other diseases classified elsewhere, unspecified severity, without behavioral disturbance, psychotic disturbance, mood disturbance, and anxiety; S32.010A Wedge compression fracture of first lumbar vertebra, initial encounter for closed fracture | CPT/HCPCS: 99214 ==

== ENCOUNTER → 2020-07-07 13:08 | Outpatient (BNVA) | payer OTHER, MEDICARE, SELFPAY | PROVIDERS: Family Provider Internal Medicine; PCP Internal Medicine; Referring Provider Family Medicine; Visit Provider Nurse Practitioner Family | DX: R32 Unspecified urinary incontinence (principal); R39.9 Unspecified symptoms and signs involving the genitourinary system | CPT/HCPCS: 81001 ==

== ENCOUNTER → 2020-08-12 13:48 | Outpatient (BNVA) | payer OTHER, MEDICARE, SELFPAY | PROVIDERS: Family Provider Internal Medicine; PCP Internal Medicine; Visit Provider Urology | DX: R39.9 Unspecified symptoms and signs involving the genitourinary system (principal) | CPT/HCPCS: 81001 ==

== ENCOUNTER 2020-08-20 15:02 | Outpatient (CLI) | payer OTHER, SELFPAY ==
--- NOTE | 2020-08-20 15:10 | XR_ITS ---
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 FINDINGS: The L1-L4 bone mineral density measures 1.396 g/cm2. This corresponds to a T score score of 1.5 and Z score of 2.0. Left femoral neck bone mineral density measures 0.993 g/cm2. This corresponds to a T score of -0.8 an d Z score of 0.2. Right femoral neck bone mineral density measures 0.929 g/cm2. This corresponds to a T score -1.2of an d Z score of -0.2. Mean femoral neck bone mineral density measures 0.961 g/cm2. This corresponds to a T score of -1.0 an d Z score of 0.0. XR/XR DEXA axial skeleton* [id number] IMPRESSION: Osteopenia in the femoral necks. Normal bone mineralization the lumbar spine. Patient's FRAX calculated 10 year probability for major osteoporotic fracture i s 16.2 % and osteoporotic hip fracture is 6.8%.
--- NOTE | 2020-08-20 15:21 | XR_ITS ---
WS: [id number] LUMBAR SPINE TECHNIQUE: 3 views of the lumbar spine CLINICAL INFORMATION: FRACTURE, AGE RELATED OSTEPOROSIS WITH CURRENT PATHOL FRACTU COMPARISON: May 27, 2020 FINDINGS: Five [id number] lumbar vertebral bodies. Osteopenia. Mild lumbar curve convex left. Mild disc space narrowing lower thoracic and upper lumbar spine. Moderate facet arthropathy L5-S1. Disc space narrowing worse at L1-2 and L2-3. Ankylosis lower thoracic spine. Mild compression of the superior endplate L1 appears stable. Mild compression superior endplates L2 and L3 appears new from previous. XR/XR lumbar spine 2-3V* [id number] IMPRESSION: 1. Stable mild compression superior endplate L1. 2. New mild compression superior endplates at L2 and L3 appears new from previ ous. This can be further evaluated with MRI. 3. Osteopenia.
== END 2020-08-20 15:03 | disposition home or self-care (01) ==
LOC: RADWPI 15:05
PROVIDERS: Visit Provider Neurological Surgery
DX: M80.08XA Age-related osteoporosis with current pathological fracture, vertebra(e), initial encounter for fracture; S32.019A Unspecified fracture of first lumbar vertebra, initial encounter for closed fracture; S32.029A Unspecified fracture of second lumbar vertebra, initial encounter for closed fracture; S32.039A Unspecified fracture of third lumbar vertebra, initial encounter for closed fracture; X58.XXXA Exposure to other specified factors, initial encounter; M85.88 Other specified disorders of bone density and structure, other site
CPT/HCPCS: 72100; 77080

== ENCOUNTER 2020-08-25 11:46 | Outpatient (CLI) | payer OTHER, SELFPAY ==
--- NOTE | 2020-08-25 11:59 | XR_ITS ---
WS: [id number] XR lumbar spine 2-3V* [id number] REASON FOR EXAM: AGE RELATED OSTEOPOROSIS W/CURRENT PATHOLOGICAL FX FINDINGS: Mild superior endplate concave compression deformities of unknown chronicity. Moderate disc space narrowing at L2-L4 with mild disc space narrowing at L1-L2 and from L4 to S1. Degenerative arthropathic change in the facet joints L3-S1. Mild convex of the above the lumbar spine alignment on the AP view. No acute abnormality. XR/XR lumbar spine 2-3V* [id number] IMPRESSION: Mild compression deformities and degenerative spondylosis as above.
[2020-08-25 14:03] LABS: Calcium 9.1 mg/dL (8.5-10.5); Parathyroid Hormone 87.2 pg/mL (15-65)
[2020-08-25 14:17] LABS: 25 Hydroxy Vitamin D 21 ng/mL (30-100); Alanine Aminotransferase 7 U/L (0-41); Albumin Level 4.2 g/dL (3.5-5.2); Alkaline Phosphatase 127 IU/L (40-130); Aspartate Amino Transferase 15 U/L (0-40); Blood Urea Nitrogen 24 mg/dL (8-23); Calcium 9.1 mg/dL (8.5-10.5); Carbon Dioxide 25 mmol/L (22-29); Chloride 100 mmol/L (98-107); Globulin 2.4 g/dL (1.3-4.6); Glucose 95 mg/dL (65-115); Osmolality Calculated 284 mOsm/kg (285-295); Sodium 135 mmol/L (136-145); Total Bilirubin 0.3 mg/dL (0.15-1.2); Total Protein 6.6 g/dL (6.6-8.7)
[2020-08-26 11:42] LABS: PROTEIN, TOTAL 6.3 g/dL (6.1-8.1)
[2020-08-26 15:42] LABS: ALBUMIN 3.9 g/dL (3.8-4.8); ALPHA 1 GLOBULIN 0.3 g/dL (0.2-0.3); ALPHA 2 GLOBULIN 0.7 g/dL (0.5-0.9); BETA 1 GLOBULIN 0.3 g/dL (0.4-0.6); BETA 2 GLOBULIN 0.3 g/dL (0.2-0.5); GAMMA GLOBULIN 0.8 g/dL (0.8-1.7)
== END 2020-08-25 11:47 | disposition home or self-care (01) ==
LOC: RAD 11:49 → LAB 11:50
PROVIDERS: Visit Provider Neurological Surgery
DX: M80.08XA Age-related osteoporosis with current pathological fracture, vertebra(e), initial encounter for fracture (principal); S32.000A Wedge compression fracture of unspecified lumbar vertebra, initial encounter for closed fracture; X58.XXXA Exposure to other specified factors, initial encounter
CPT/HCPCS: 36415; 72100; 80053; 82306; 82310; 83970; 84155; 84165

== ENCOUNTER → 2020-10-14 15:21 | Outpatient (BNVA) | payer OTHER, MEDICARE, SELFPAY | PROVIDERS: Visit Provider Urology | DX: R39.9 Unspecified symptoms and signs involving the genitourinary system (principal); N39.41 Urge incontinence | CPT/HCPCS: 81003 ==

== ENCOUNTER → 2020-10-15 10:28 | Outpatient (BNVA) | payer OTHER, SELFPAY | PROVIDERS: Visit Provider Specialist | DX: G20 Parkinson's disease (principal); R53.1 Weakness; S32.010A Wedge compression fracture of first lumbar vertebra, initial encounter for closed fracture; Y93.9 Activity, unspecified; M48.062 Spinal stenosis, lumbar region with neurogenic claudication | CPT/HCPCS: 99213; 99214 ==

== ENCOUNTER → 2021-01-14 15:14 | Outpatient (BNVA) | payer OTHER, MEDICARE, SELFPAY | PROVIDERS: PCP Family Medicine; Visit Provider Urology | DX: N39.41 Urge incontinence (principal); R39.9 Unspecified symptoms and signs involving the genitourinary system; G31.83 Neurocognitive disorder with Lewy bodies; G20 Parkinson's disease; F02.80 Dementia in other diseases classified elsewhere, unspecified severity, without behavioral disturbance, psychotic disturbance, mood disturbance, and anxiety | CPT/HCPCS: 81003 ==

== ENCOUNTER → 2021-02-17 12:44 | Outpatient (BNVA) | payer OTHER, SELFPAY | PROVIDERS: PCP Family Medicine; Visit Provider Specialist | DX: G23.2 Striatonigral degeneration (principal); G90.3 Multi-system degeneration of the autonomic nervous system | CPT/HCPCS: 99215 ==

== ENCOUNTER 2021-03-07 11:52 | Inpatient (IN) | payer OTHER, MEDICARE, SELFPAY ==
[2021-03-07] VITALS (43 sets, daily range): BP systolic 118–238; BP diastolic 56–101; PULSE 56–80; RESP 9–23; TEMP 36–37.1; O2SAT 92–98; BMI 29.9
--- NOTE | 2021-03-07 12:19 | XRR_ITS ---
PROCEDURE INFORMATION: Exam: XR Chest Exam date and time: 03/07/2021 12:29 PM Age: 81 years old Clinical indication: Chest pain; Type not specified TECHNIQUE: Imaging protocol: XR of the chest. Views: 1 view. COMPARISON: CR XR chest 1V portable [id number] 02/14/2020 12:21 PM FINDINGS: Lungs: Low lung volumes are seen. The lungs are otherwise clear. No consolidation. Pleural spaces: Unremarkable. No pleural effusion. No pneumothorax. Heart/Mediastinum: Soft tissue density is seen in the right paratracheal region which may reflect a lymph node. No cardiomegaly. Bones/joints: Unremarkable. XR/XR chest 1V portable [id number] IMPRESSION: No acute findings.
--- NOTE | 2021-03-07 12:20 | ECG_ITS ---
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 Measurements Intervals [place] Rate: 56 P: 44 CO: 190 QRS: -32 QRSD: 131 T: -12 QT: 456 QTc: 443 Interpretive Statements SINUS BRADYCARDIA WITH OCCASIONAL SUPRAVENTRICULAR PREMATURE COMPLEXES LEFT AXIS DEVIATION [QRS AXIS < -30] INTRAVENTRICULAR CONDUCTION DELAY [130+ ms QRS DURATION] MINIMAL VOLTAGE CRITERIA FOR LVH, CONSIDER NORMAL VARIANT [MEETS CRITERIA IN POSSIBLE LATERAL MYOCARDIAL INFARCTION , OF INDETERMINATE AGE [30 ms Q WAVE IN Compared to ECG 03/07/2021 12:00:29 Left-axis deviation now present Intraventricular conduction delay now present Sinus rhythm no longer present Right bundle-branch block no longer present Myocardial infarct finding still present Electronically Signed On 03-10-2021 12:26:54 CDT by Pauline Chiu M.D. [id number]
--- NOTE | 2021-03-07 12:22 | ED_ITS ---
HPI - Chest Pain General: Chief Complaint: Chest Pain Stated Complaint: CP Time Seen by Provider: 03/07/21 11:53 History of Present Illness: HPI narrative: 81-year-old male presents emergency room complaining of chest pain that began while he was sitting he does not notice any thing that seems to have exacerbated to relieve it other than time. Resolve spontaneously seems to begin again not necessarily associated with exertion. Patient has a history of Lewy body dementia as well as vertebral compression fractures. She has no history of coronary artery disease. MD complaint: chest discomfort Onset (ago): hour(s) Timing of current episode: episodic Onset: during rest Pain location: left chest Pain radiation: left arm and left shoulder Severity: mild Quality: aching Relieving factors: nothing Exacerbating factors: nothing Associated symptoms: Deny abdominal pain, diaphoresis, dyspnea, fever(s), leg edema, nausea, palpitations, sense of impending doom, syncope or vomiting Treatment prior to arrival: none Review of Systems Const: Denies: fever(s) or diaphoresis ENMT: Denies: throat pain, ear or mastoid pain, nasal discharge or nasal co ngestion Card: Denies: palpitations or syncope Resp: Denies: dyspnea GI: Denies: abdominal pain, nausea or vomiting : Denies: flank pain, dysuria, urinary frequency or urinary urgency Skin/Breast: Denies: rash or pruritus PFS ED PFSH: Medical History Arthritis of left acromioclavicular joint Chronic pain Lower urinary tract symptoms (LUTS) Osteoarthritis of left glenohumeral joint Parkinson's disease Postop check Prostate CA Radioactive seed implant 2009 Surgical History H/O elbow surgery H/O prostate biopsy S/P cataract extraction BILATERAL S/P cholecystectomy S/P shoulder surgery S/P tonsillectomy and adenoidectomy Status post lumbar surgery 01/10/2020 Dr. Tamia Foley. Bilateral L3-L4 hemilaminotomy/foraminotomy, with limited discectomy. Bilateral L2-L3 laminotomy/foraminotomy. Family History Grandmother CAD (coronary artery disease) Cancer Myocardial infarct Family/Other Hypertension Mother , at age 95 No problems noted. Father , at age 39 Blood clot associated with vein wall inflammation Social History Smoking and tobacco status: never smoked Alcohol intake: never Household members: family and children Marital status: / Current occupational status: retired History of recent travel: No Physical Exam Const: COMMON NORMALS: no acute distress GENERAL APPEARANCE: cooperative and comfortable ORIENTATION/CONSCIOUSNESS: Yes awake HENMT: COMMON NORMALS: normocephalic, atraumatic and hearing grossly normal bilaterally HEAD & SCALP: normocephalic and atraumatic Neck/C-Spine: COMMON NORMALS: no JVD Resp: COMMON NORMALS: normal respiratory effort, No retractions, No use of accessory muscles and clear to auscultation bilaterally AUSCULTATION: clear to auscultation bilaterally Cardio: COMMON NORMALS: no JVD, regular rate, regular rhythm and No murmurs present (Cardio) RATE: regular rate RHYTHM: regular rhythm GI: COMMON NORMALS: Soft to palpation and No hepatosplenomegaly present AUSCULTATION: Yes normoactive bowel sounds PALPATION: Yes Soft to palpation, No Tenderness to palpation present (GI), No Guarding due to palpation present (GI) and Yes No hepatosplenomegaly present Extremity: COMMON NORMALS: normal to inspection, capillary refill normal, no clubbing, cyanosis or edema, no calf tenderness and no pedal edema Skin: COMMON NORMALS: no rashes or lesions noted GENERAL SKIN EXAM: no rashes or lesions noted Course Vital Signs: Vital signs: Vital Signs Temperature 97.9 F 03/08/21 07:24 Pulse Rate 60 03/08/21 14:17 Respiratory Rate 59 H 03/08/21 14:17 Blood Pressure 154/59 03/08/21 14:17 Pulse Oximetry 94 03/08/21 14:17 MDM - Chest Pain MDM Narrative: Medical decision making narrative: Positive delta troponin of 18 patient is pain-free at this time his blood pressure is improved but not resolved. We will add aspirin Lovenox and nitroglycerin paste. Admit to CSU discussed with Dr. Ry hennessy written Lab Data: Labs: Lab Results 03/07/21 03/07/21 03/07/21 Range/Units 12:15 12:15 12:15 WBC 6.3 (4.0-10.0) 10^3/ uL RBC 4.26 (4.1-5.3) 10^6/u L Hgb 13.6 (11.7-16.6) g/dL Hct 40.2 L (42.0-52.0) % MCV 94.4 H (80-94) fL MCH 31.9 (28.0-34.0) pg MCHC 33.8 (30.0-36.0) g/dL RDW 13.0 (12.1-15.1) % Plt Count 174 (130-400) 10^3/c mm MPV 10.9 H (7.4-10.4) fL Neut % (Auto) 66.3 % Lymph % (Auto) 19.7 % [place] % (Auto) 11.5 % Eos % (Auto) 1.8 % Baso % (Auto) 0.5 % Neut # (Auto) 4.17 (1.8-7.7) 10^3/u L Lymph # (Auto) 1.2 (0.8-4.8) 10^3/u L [place] # (Auto) 0.7 (0.2-0.9) 10^3/u L Eos # (Auto) 0.1 (0.0-0.8) 10^3/u L Baso # (Auto) 0.0 (0.0-0.1) 10^3/u L Nucleated RBC % (a uto) 0 % Nucleated RBCs # 0.0 /100WBC Sodium 139 (136-145) mmol/L Potassium 4.3 (3.5-5.1) mmol/L Chloride 107 (98-107) mmol/L Carbon Dioxide 23 (22-29) mmol/L Anion Gap 13.3 (5-19) BUN 16 (8-23) mg/dL Creatinine 0.9 (0.7-1.2) mg/dL GFR Calculation Not Reportable Glucose 89 (65-115) mg/dL Calculated Osmolal ity 289 (285-295) mOsm/k g Calcium 8.4 L (8.5-10.5) mg/dL Total Bilirubin 0.3 (0.15-1.2) mg/dL AST 11 (0-40) U/L ALT < 5 (0-41) U/L Alkaline Phosphata se 105 (40-130) IU/L Troponin T Baselin e 29 H (0-15) ng/L Troponin T 120 Min [place] (0-15) ng/L Delta Troponin T (0-10) ABS# Total Protein 6.0 L (6.6-8.7) g/dL Albumin 3.8 (3.5-5.2) g/dL Globulin 2.2 (1.3-4.6) g/dL 03/07/21 Range/Units 14:35 WBC (4.0-10.0) 10^3/ uL RBC (4.1-5.3) 10^6/u L Hgb (11.7-16.6) g/dL Hct (42.0-52.0) % MCV (80-94) fL MCH (28.0-34.0) pg MCHC (30.0-36.0) g/dL RDW (12.1-15.1) % Plt Count (130-400) 10^3/c mm MPV (7.4-10.4) fL Neut % (Auto) % Lymph % (Auto) % [place] % (Auto) % Eos % (Auto) % Baso % (Auto) % Neut # (Auto) (1.8-7.7) 10^3/u L Lymph # (Auto) (0.8-4.8) 10^3/u L [place] # (Auto) (0.2-0.9) 10^3/u L Eos # (Auto) (0.0-0.8) 10^3/u L Baso # (Auto) (0.0-0.1) 10^3/u L Nucleated RBC % (a uto) % Nucleated RBCs # /100WBC Sodium (136-145) mmol/L Potassium (3.5-5.1) mmol/L Chloride (98-107) mmol/L Carbon Dioxide (22-29) mmol/L Anion Gap (5-19) BUN (8-23) mg/dL Creatinine (0.7-1.2) mg/dL GFR Calculation Glucose (65-115) mg/dL Calculated Osmolal ity (285-295) mOsm/k g Calcium (8.5-10.5) mg/dL Total Bilirubin (0.15-1.2) mg/dL AST (0-40) U/L ALT (0-41) U/L Alkaline Phosphata se (40-130) IU/L Troponin T Baselin e (0-15) ng/L Troponin T 120 Min [place] 47.03 H (0-15) ng/L Delta Troponin T 18.03 H* (0-10) ABS# Total Protein (6.6-8.7) g/dL Albumin (3.5-5.2) g/dL Globulin (1.3-4.6) g/dL Discharge Plan Discharge Patient Disposition: Admitted As Inpatient Admit Provider: Awais Raza Clinical Impression: Non-ST elevation WI (NSTEMI), Parkinson's disease Condition: Stable Discharge Diet: Regular Discharge Activity: Resume usual activity Coding Level of Care Code ED Environmental Health Specialist for Krystyna Fwd Exam Comprehensive
[2021-03-07] MEDS: amlodipine 10 mg Tablet PO (12:24)
[2021-03-07] MEDS: nitroglycerin 1 gm/inch oint Pkt 1 INCH TOPICAL (12:24)
[2021-03-07 12:38] LABS: Basophils % 0.5 %; Eosinophils # 0.1 10^3/uL (0.0-0.8); Eosinophils % 1.8 %; Hematocrit 40.2 % (42.0-52.0); Hemoglobin 13.6 g/dL (11.7-16.6); Lymphocytes # 1.2 10^3/uL (0.8-4.8); Lymphocytes % 19.7 %; Mean Corpuscular HGB Conc 33.8 g/dL (30.0-36.0); Mean Corpuscular Hemoglobin 31.9 pg (28.0-34.0); Mean Corpuscular Volume 94.4 fL (80-94); Mean Platelet Volume 10.9 fL (7.4-10.4); Monocytes # 0.7 10^3/uL (0.2-0.9); Monocytes % 11.5 %; Neutrophils # 4.17 10^3/uL (1.8-7.7); Neutrophils % 66.3 %; Nucleated Red Blood Cells % 0 %; Platelet Count 174 10^3/cmm (130-400); Red Blood Count 4.26 10^6/uL (4.1-5.3); White Blood Count 6.3 10^3/uL (4.0-10.0)
[2021-03-07 12:50] LABS: Alanine Aminotransferase < 5 U/L (0-41); Albumin Level 3.8 g/dL (3.5-5.2); Alkaline Phosphatase 105 IU/L (40-130); Anion Gap 13.3 (5-19); Aspartate Amino Transferase 11 U/L (0-40); Blood Urea Nitrogen 16 mg/dL (8-23); Calcium 8.4 mg/dL (8.5-10.5); Carbon Dioxide 23 mmol/L (22-29); Chloride 107 mmol/L (98-107); Globulin 2.2 g/dL (1.3-4.6); Glucose 89 mg/dL (65-115); Osmolality Calculated 289 mOsm/kg (285-295); Potassium 4.3 mmol/L (3.5-5.1); Sodium 139 mmol/L (136-145); Total Bilirubin 0.3 mg/dL (0.15-1.2)
[2021-03-07 12:51] LABS: Troponin(5th) Baseline 29 ng/L (0-15)
--- NOTE | 2021-03-07 14:20 | ECG_ITS ---
[facility] Test Date: 2021-03-07 Pat Name: Renny Matos Department: Room: Gender: Male Full Time: : 1940 Requested By: Bright Mcclelland Order Number: [id number] Edna MD: Pauline Chiu M.D. Measurements Intervals [place] Rate: 64 P: 74 [place]: 194 QRS: -27 QRSD: 137 T: 0 QT: 425 QTc: 440 Interpretive Statements SINUS RHYTHM RIGHT BUNDLE BRANCH BLOCK [120+ ms QRS DURATION, UPRIGHT V1, 40+ ms S IN I/aVL/V4/V5/V6] POSSIBLE SEPTAL MYOCARDIAL INFARCTION , PROBABLY OLD [30 ms Q WAVE IN V1/V2] Compared to ECG 02/14/2020 13:52:28 Right bundle-branch block now present Myocardial infarct finding now present Ventricular premature complex(es) no longer present Incomplete right bundle-branch block no longer present ST (T wave) deviation no longer present Electronically Signed On 03-10-2021 12:48:54 CDT by Pauline Chiu M.D. [id number]
[2021-03-07 15:18] LABS: Troponin 5 2HR 47.03 ng/L (0-15)
[2021-03-07 15:34] LABS: Troponin 5 2HR Delta 18.03 ABS# (0-10)
[2021-03-07] MEDS: enoxaparin 80 mg/0.8 mL Syringe SUBCUT (15:43)
[2021-03-07] MEDS: nitroglycerin 1 gm/inch oint Pkt 1.5 INCH TOPICAL (15:43)
[2021-03-07] MEDS: aspirin 81 mg Chew Tablet 324 MG PO (15:44)
--- NOTE | 2021-03-07 16:59 | PC.NURSE ---
received into room 107 from er via stretcher at 1625.pt is sr on monitor.denies chest pain at present.medications reconciled.oriented to room environment.instructed to notify staff for any cp,sob,nausea,dizziness,or for any concerns at all.pt verb understanding of instructions
--- NOTE | 2021-03-07 17:27 | P.HP_ITS ---
Providers/Chief Complaint Admitting Physician: Awais Raza MD Primary Care Provider: Minnie Coello MD Chief Complaint: CP History of Present Illness Renny Matos is a 81 year old male with PMH of Parkinson disease, Ca prostate, chronic urinary incontinence, Came in with chief complaint of acute onset of chest pain, started this morning,after he had his breakfast,lt sided chest pain, sharp, 6 out of 10 , radiating to left arm, not relieved by ibuprofen, he denied any, diaphoresis, palpitation, lightheaded, dizziness, nausea, vomiting, headache, shortness of breath.Denies any fever, cough, pain with inspiration, any positional component to the pain, any sick contact. Upon arrival in the ER he was worked up for above mentioned complaint. EKG: Sinus rhythm with right bundle branch block. X-ray: No acute cardiopulmonary pathology Pertinent labs: Troponin: Baseline: 29, 2-hour: 47, 2-hour delta: 18 6-hour troponin: 6-hour delta: Upon arrival in the ER; blood pressure was: 238/101, heart rate: 59, ECA Medications : Amlodipine 10 mg po * 1 dose, Nitro patch, aspirin 324 mg po * 1 dose ,Zofran Review of Systems Const: Denies: fever(s) or diaphoresis Card: Denies: palpitations, edema, swelling of feet/ankles or leg pain with exertion Resp: Denies: dyspnea, productive cough, wheezing or pain on inspiration GI: Denies: abdominal pain, nausea, vomiting, diarrhea or constipation : Denies: flank pain or difficulty urinating Musc: Denies: back pain, extremity pain or extremity swelling Neuro: Denies: headache(s), difficulty walking or confusion Medications/Allergies Home Medications Medication Instructions Recorded Confirmed Last Taken Type losartan 100 mg tablet 50 mg PO DAILY 12/05/19 03/07/21 03/07/21 08:00 History Lidocaine Viscous See Rx Instructions .ROUTE .COMPLEX 02/14/20 03/07/21 Unknown History polyethylene glycol 3350 [Miralax] 17 g PO DAILY PRN 02/14/20 03/07/21 Unknown History primidone 50 mg tablet 50 mg PO BEDTIME tab 04/08/20 03/07/21 03/06/21 21:00 History aspirin 325 mg tablet 325 mg PO DAILY 07/07/20 03/07/21 03/07/21 09:00 History acetaminophen 500 mg tablet 1,000 mg PO BID PRN tab 08/12/20 03/07/21 Unknown History carboxymethylcellulose sodium 1 % 1 drp OPHTHALMIC (EYE) BID 01/14/21 03/07/21 03/06/21 20:00 History eye liquid gel drops famotidine 10 mg tablet 20 mg PO DAILY tab 02/17/21 03/07/21 03/07/21 08:00 History fludrocortisone 0.1 mg tablet 0.1 mg PO DAILY 02/17/21 03/07/21 03/07/21 08:00 History oxybutynin chloride 5 mg tablet 5 mg PO BID 02/17/21 03/07/21 03/07/21 08:00 History carbidopa-levodopa 1 tab PO BID 03/07/21 03/07/21 03/07/21 09:00 History cholecalciferol (vitamin D3) 25 mcg PO DAILY 03/07/21 03/07/21 03/07/21 08:00 History [Vitamin D3] citalopram 20 mg PO BEDTIME 03/07/21 03/07/21 03/06/21 21:00 History Allergies Allergy/AdvReac Type Severity Reaction Status Date / Time hydrocodone Allergy HALLUCINATI Verified 03/07/21 12:02 ONS zonisamide [From Zonegran] Allergy HIVES Verified 03/07/21 12:02 metoprolol AdvReac BRADYCARDIA Verified 03/07/21 12:02 Penicillins AdvReac UNKNOWN Verified 03/07/21 12:02 pravastatin AdvReac MUSCLE PAIN Verified 03/07/21 12:02 PFSH Acute PFSH: Medical History Arthritis of left acromioclavicular joint Chronic pain Lower urinary tract symptoms (LUTS) Osteoarthritis of left glenohumeral joint Parkinson's disease Postop check Prostate CA Radioactive seed implant 2009 Surgical History H/O elbow surgery H/O prostate biopsy S/P cataract extraction BILATERAL S/P cholecystectomy S/P shoulder surgery S/P tonsillectomy and adenoidectomy Status post lumbar surgery 01/10/2020 Dr. Tamia Foley. Bilateral L3-L4 hemilaminotomy/foraminotomy, with limited discectomy. Bilateral L2-L3 laminotomy/foraminotomy. Family History Grandmother CAD (coronary artery disease) Cancer Myocardial infarct Family/Other Hypertension Mother , at age 95 No problems noted. Father , at age 39 Blood clot associated with vein wall inflammation Social History Smoking and tobacco status: never smoked Alcohol intake: never Household members: family and children Marital status: / Current occupational status: retired History of recent travel: No Vitals/I&O/Wt Last Vital Signs Temp 98.7 F 03/07/21 16:14 Pulse 57 L 03/07/21 16:34 Resp 14 03/07/21 16:34 BP 220/91 03/07/21 16:35 Pulse Ox 96 03/07/21 16:34 Weight last 48 hrs Weight 81.647 kg Physical Exam Const: COMMON NORMALS: patient oriented x3 HENMT: COMMON NORMALS: normocephalic and atraumatic HEAD & SCALP: normocephalic and atraumatic Resp: COMMON NORMALS: clear to auscultation bilaterally AUSCULTATION: clear to auscultation bilaterally Cardio: COMMON NORMALS: regular rate, regular rhythm, S1 normal heart sound present, S2 normal heart sound present, No gallops present (Cardio), No murmurs present (Cardio), No rub (Cardio) and Peripheral pulses 2+ throughout RATE: regular rate RHYTHM: regular rhythm HEART SOUNDS: S1 normal heart sound present and S2 normal heart sound present PERIPHERAL PULSES: Peripheral pulses 2+ throughout GI: COMMON NORMALS: Normal to inspection, nondistended, normoactive bowel sounds present, Soft to palpation, non-tender, No hepatosplenomegaly present and no masses AUSCULTATION: Yes normoactive bowel sounds PALPATION: Yes Soft to palpation and Yes No hepatosplenomegaly present RECTAL EXAM: Yes deferred Extremity: COMMON NORMALS: no clubbing, cyanosis or edema and no pedal edema Neuro: COMMON NORMALS: patient oriented x3 Data : 03/07/21 12:15 03/07/21 12:15 A&P Assessment and plan (1) Non-ST elevation [place] (NSTEMI): NSTEMI Type I V/S II 2D Echo Tele EKG Aspirin 81 mg po daily Plavix 75 mg po daily Atorvas 40 mg po daily Imdur 30 mg po daily lOVENOX 80 MG Q12 H Daily S/L Nitro prn Status: Acute (2) Hypertensive emergency: Currently on nicardipine drip. Will switch to po Home medications. Status: Acute (3) Parkinson's plus syndrome: Status: Acute (4) Lewy body dementia: Status: Acute (5) Parkinson's disease: Status: Chronic (6) Shy-Drager syndrome: Status: Acute (7) Urgency incontinence: Status: Acute Additional A&P Information Code Status :Full code DVT PPX: Lovenox Disposition :Home Attestations Medical Necessity Statement*: Patient needs to be in hospital for the management of NSTEMI.Anticipated LOS Greater then 2 midnights. Coding Level of Care Code Acute Speech And Language Assistant for [facility] Diagnoses Non-ST elevation [place] (NSTEMI) I21.4 Hypertensive emergency I16.1 Parkinson's plus syndrome G23.2 Lewy body dementia G31.83; F02.80 Parkinson's disease G20 Shy-Drager syndrome G90.3 Urgency incontinence N39.41
[2021-03-07] MEDS: isosorbide mononitrate ER 30 mg Tablet PO (18:15)
[2021-03-07] MEDS: oxybutynin 5 mg Tablet PO (18:15)
[2021-03-07] MEDS: nicardipine 20 MG/200 ML PREMIX 50 MG IV (18:16)
[2021-03-07] MEDS: carbidopa-levodopa 25-100mg Tablet 1 EACH PO (18:16)
--- NOTE | 2021-03-07 18:20 | ECG_ITS ---
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 Measurements Intervals [place] Rate: 76 P: 81 [place]: 181 QRS: -32 QRSD: 132 T: -1 QT: 418 QTc: 472 Interpretive Statements SINUS RHYTHM MARKED LEFT AXIS DEVIATION [QRS AXIS < -30] RIGHT BUNDLE BRANCH BLOCK MINIMAL VOLTAGE CRITERIA FOR LVH, CONSIDER NORMAL VARIANT POSSIBLE SEPTAL MYOCARDIAL INFARCTION, PROBABLY OLD Compared to ECG 03/07/2021 15:17:29 Right bundle-branch block now present Sinus bradycardia no longer present Intraventricular conduction delay no longer present Myocardial infarct finding still present Electronically Signed On 03-10-2021 12:48:10 CDT by Pauline Chiu M.D. [id number]
--- NOTE | 2021-03-07 18:24 | PC.NURSE ---
cardene drip started at 5mg/hr as ordered.
[2021-03-07 18:25] LABS: Troponin 5 6HR 28.14 ng/L (0-15)
[2021-03-07 18:34] LABS: Troponin 5 6HR Delta -0.86 ng/L (0-12)
--- NOTE | 2021-03-07 19:19 | PC.NURSE ---
cardene drip turned off for bp 118/56
[2021-03-07] MEDS: primidone 50 mg Tablet PO (20:34)
[2021-03-07] MEDS: citalopram 20 mg Tablet PO (20:34)
[2021-03-07] MEDS: atorvastatin 40 mg Tablet PO (20:34)
[2021-03-08] VITALS (7 sets, daily range): BP systolic 132–159; BP diastolic 59–68; PULSE 57–61; RESP 13–59; TEMP 36.6–37.3; O2SAT 94–97
[2021-03-08] MEDS: acetaminophen 500 mg Tablet 1000 MG PO (00:07)
[2021-03-08 05:49] LABS: Basophils % 0.6 %; Eosinophils # 0.2 10^3/uL (0.0-0.8); Eosinophils % 2.3 %; Hematocrit 37.5 % (42.0-52.0); Hemoglobin 12.4 g/dL (11.7-16.6); Lymphocytes # 1.9 10^3/uL (0.8-4.8); Lymphocytes % 27.4 %; Mean Corpuscular HGB Conc 33.1 g/dL (30.0-36.0); Mean Corpuscular Hemoglobin 31.6 pg (28.0-34.0); Mean Corpuscular Volume 95.4 fL (80-94); Mean Platelet Volume 11.1 fL (7.4-10.4); Monocytes # 0.6 10^3/uL (0.2-0.9); Monocytes % 9.1 %; Neutrophils # 4.19 10^3/uL (1.8-7.7); Neutrophils % 60.3 %; Nucleated Red Blood Cells % 0 %; Platelet Count 153 10^3/cmm (130-400); Red Blood Count 3.93 10^6/uL (4.1-5.3); Red Cell Distribution Width 12.7 % (12.1-15.1); White Blood Count 6.9 10^3/uL (4.0-10.0)
[2021-03-08] MEDS: enoxaparin 80 mg/0.8 mL Syringe SUBCUT (05:56)
--- NOTE | 2021-03-08 06:00 | USCV_ITS ---
Renny Matos Age: 81 Gender: M : 1940 Exam Date: 03/08/2021 08:14 Ordering Phys: Bright Aden DO Technologist: Delisa Larose [place] [facility] [place]: NSTEMI BP: 148 / 65 HR: 59 Rhythm: Sinus Technical Quality: Fair MEASUREMENTS (Male / Female) Normal Values 2D ECHO LV Diastolic Diameter PLAX 3.0 cm 4.2 - 5.9 / 3.9 - 5.3 cm LV Systolic Diameter PLAX 1.6 cm LV Chamber Size 3.8 cm IVS Diastolic Thickness 1.7 cm 0.6 - 1.0 / 0.6 - 0.9 cm IVS Systolic Thickness 2.1 cm LVPW Diastolic Thickness 0.9 cm 0.6 - 1.0 / 0.6 - 0.9 cm LVPW Systolic Thickness 1.3 cm RV Chamber Size 3.6 cm LVOT Diameter 2.0 cm LV Ejection Fraction 2D Teich 79.4 % LV Ejection Fraction MOD 2C 57.3 % LV Ejection Fraction 2C AL 56.5 % LA Diameter 3.6 cm LA Width 2.4 cm LA Height 4.5 cm RA Width 2.4 cm RA Height 4.8 cm Aorta at Sinotubular Diameter 3.0 cm M-MODE LV Diastolic Diameter MM 4.7 cm 4.2 - 5.9 / 3.9 - 5.3 cm LV Systolic Diameter MM 2.9 cm LV Ejection Fraction MM Teich 67.7 % IVS Diastolic Thickness MM 1.3 cm 0.6 - 1.0 / 0.6 - 0.9 cm IVS Systolic Thickness MM 1.5 cm LVPW Diastolic Thickness MM 1.4 cm 0.6 - 1.0 / 0.6 - 0.9 cm LVPW Systolic Thickness MM 1.9 cm Aortic Annulus Diameter 3.3 cm LA Ao Ratio MM 1.3 MV E Point Septal Separation 0.2 cm DOPPLER AV Peak Velocity 141.0 cm/s LVOT Peak Velocity 113.0 cm/s AV Area Cont Eq vti 2.7 cm squared AV Area Cont Eq pk 2.5 cm squared MV Area PHT 3.0 cm squared Mitral E to A Ratio 0.8 MV E' Velocity 39.0 cm/s Mitral E to MV E' Ratio 13.3 Mitral E to LV E' Lateral Ratio 13.5 Mitral E to LV E' Septal Ratio 13.1 TR Peak Velocity 241.0 cm/s TR Peak Gradient 23.2 mmHg TV Peak E Velocity 62.0 cm/s PV Peak Velocity 107.0 cm/s RV Acceleration Time 0.1 s RV Ejection Time 0.3 s RV AcT/ET 0.3 FINDINGS Left Ventricle Normal left ventricular size, systolic function and wall thickness, with no diagnostic regional wall motion abnormalities. Left ventricular ejection fraction is estimated at 60-65 %. Grade II diastolic dysfunction, moderately elevated filling pressures. Right Ventricle Normal right ventricular size and systolic function. Right ventricular systolic pressure 26 mmHg. Right Atrium Normal right atrial size. Left Atrium Mildly increased left atrial size. Mitral Valve Moderate mitral annular calcification. Thickened mitral valve. No mitral valve stenosis. No mitral valve regurgitation. Aortic Valve Mildy thickened trileaflet aortic valve. No aortic valve stenosis. No aortic valve regurgitation. Tricuspid Valve Structurally normal tricuspid valve. Trace tricuspid valve regurgitation. Pulmonic Valve Pulmonic valve not well visualized. No pulmonary valve stenosis. No pulmonary valve regurgitation. Pericardium No pericardial effusion. Aorta Normal size aortic root and proximal ascending aorta. CONCLUSIONS 1. This is a technically difficult study. 2. Normal left ventricular size, systolic function and wall thickness, with no diagnostic regional wall motion abnormalities. Left ventricular ejection fraction is estimated at 60-65 %. Grade II diastolic dysfunction, moderately elevated filling pressures. 3. Normal right ventricular size and systolic function. 4. No significant valvular abnormality. 5. When compared to previous echocardiogram dated 01/15/20, there has been no significant change. Pauline Chiu MD (Electronically Signed) Final Date: 08 March 2021 12:44 S
[2021-03-08 06:14] LABS: Estmated Average Glucose 100; Hemoglobin A1C 5.1 % (4.0-6.0)
[2021-03-08 06:22] LABS: Alanine Aminotransferase < 5 U/L (0-41); Albumin Level 3.5 g/dL (3.5-5.2); Alkaline Phosphatase 87 IU/L (40-130); Anion Gap 11.9 (5-19); Aspartate Amino Transferase 10 U/L (0-40); Blood Urea Nitrogen 15 mg/dL (8-23); Calcium 8.2 mg/dL (8.5-10.5); Carbon Dioxide 23 mmol/L (22-29); Chloride 105 mmol/L (98-107); Chol HDL Ratio 5.27 mg/dL (1.0-5.00); Cholesterol 174 mg/dL (0-200); Globulin 2.2 g/dL (1.3-4.6); Glucose 100 mg/dL (65-115); HDL Cholesterol 33 mg/dL (60-100); LDL Cholesterol Calculated 109 mg/dL (50-129); Magnesium 1.9 mg/dL (1.7-2.3); Osmolality Calculated 283 mOsm/kg (285-295); Potassium 3.9 mmol/L (3.5-5.1); Sodium 136 mmol/L (136-145); Total Bilirubin 0.4 mg/dL (0.15-1.2); Total Protein 5.7 g/dL (6.6-8.7); Triglycerides 158 mg/dL (0-150)
[2021-03-08] MEDS: cholecalciferol (vitamin D3) 1,000 unit Tablet 1000 UNIT PO (09:39)
[2021-03-08] MEDS: famotidine 20 mg Tablet PO (09:39)
[2021-03-08] MEDS: carbidopa-levodopa 25-100mg Tablet 1 EACH PO (09:40)
[2021-03-08] MEDS: aspirin 81 mg EC Tablet PO (09:40)
[2021-03-08] MEDS: losartan 50 mg Tablet PO (09:40)
[2021-03-08] MEDS: oxybutynin 5 mg Tablet PO (09:40)
[2021-03-08] MEDS: polyethylene glycol 3350 Pkt 17 gm PO (09:41)
[2021-03-08] MEDS: acetaminophen 325 mg Tablet 650 MG PO (09:43)
[2021-03-08] MEDS: fludrocortisone 0.1 mg Tablet PO (09:53)
--- NOTE | 2021-03-08 13:26 | P.DS_ITS ---
Discharge Providers Date of Admission: 03/07/21 15:55 Date of Discharge: March 08, 2021 Attending Provider at Admission: Awais Raza MD Attending Provider at Discharge: Awais Raza MD Primary Care Provider: Minnie Coello MD Diagnoses at Discharge Discharge Diagnosis (1) Non-ST elevation [place] (NSTEMI): Status: Resolved (2) Hypertensive emergency: Status: Resolved (3) Parkinson's plus syndrome: Status: Chronic (4) Lewy body dementia: Status: Chronic (5) Parkinson's disease: Status: Chronic (6) Shy-Drager syndrome: Status: Chronic (7) Urgency incontinence: Status: Chronic Reason for Visit Reason for Visit: CP Hospital Course Hospital Course 81 year old male with PMH of Parkinson disease, Ca prostate, chronic urinary incontinence, Came in with chief complaint of acute onset of chest pain, started this morning,after he had his breakfast,lt sided chest pain, sharp, 6 out of 10 , radiating to left arm, not relieved by ibuprofen, he denied any, diaphoresis, palpitation, lightheaded, dizziness, nausea, vomiting, headache, shortness of breath.Denies any fever, cough, pain with inspiration, any positional component to the pain, any sick contact. Upon arrival in the ER he was worked up for above mentioned complaint. EKG: Sinus rhythm with right bundle branch block. X-ray: No acute cardiopulmonary pathology Pertinent labs: Troponin: Baseline: 29, 2-hour: 47, 2-hour delta: 18 6-hour troponin:28.14 6-hour delta:-0.86 Upon arrival in the ER; blood pressure was: 238/101, heart rate: 59, ECA Medications : Amlodipine 10 mg po * 1 dose, Nitro patch, aspirin 324 mg po * 1 dose ,Zofran. He was admitted for the management of hypertensive emergency, elevated troponin likely secondary to type II [place], marked variation in blood pressure, can be due to autonomic dysfunction due to longstanding Parkinson's disease.Initially he was kept on the Cardizem drip, which was later discontinued, he was continued on his home losartan 50 mg p.o. daily, as well as was started on amlodipine 5 mg p.o. daily. For his elevated troponin, Likely type II [place], due to abrupt blood pressure elevation, 2D echo was done:Normal left ventricular size, systolic function and wall, thickness, with no diagnostic regional wall motion abnormalities. Left ventricular ejection fraction is estimated at 60-65 %. Grade II diastolic dysfunction, moderately elevated filling pressures. Normal right ventricular size and systolic function. No significant valvular abnormality. Patient was started on Imdur, after which he was complaining of severe headache, hence it was discontinued. Amlodipine will help both with his blood pressure and chest pain.He will see cardiology as an outpatient in a week's time.Patient responded well to the above medical management and is being discharged in stable condition. Physical Exam Const: COMMON NORMALS: patient oriented x3 HENMT: COMMON NORMALS: normocephalic and atraumatic HEAD & SCALP: normocephalic and atraumatic Resp: COMMON NORMALS: clear to auscultation bilaterally AUSCULTATION: clear to auscultation bilaterally Cardio: COMMON NORMALS: regular rate, regular rhythm, S1 normal heart sound present, S2 normal heart sound present, No gallops present (Cardio), No murmurs present (Cardio), No rub (Cardio) and Peripheral pulses 2+ throughout RATE: regular rate RHYTHM: regular rhythm HEART SOUNDS: S1 normal heart sound present and S2 normal heart sound present PERIPHERAL PULSES: Peripheral pulses 2+ throughout GI: COMMON NORMALS: Normal to inspection, nondistended, normoactive bowel sounds present, Soft to palpation, non-tender, No hepatosplenomegaly present and no masses AUSCULTATION: Yes normoactive bowel sounds PALPATION: Yes Soft to palpation and Yes No hepatosplenomegaly present RECTAL EXAM: Yes deferred Extremity: COMMON NORMALS: no clubbing, cyanosis or edema and no pedal edema Neuro: COMMON NORMALS: patient oriented x3 Discharge Data Data Completed and Pending: Completed Studies During Hospitalization Category Date Time Status XR chest 1V vernon ble [id number] Stat Exams 03/07/21 12:19 Completed CV echo complete* [id number] Routine Ultrasound 03/08/21 06:00 Completed Labs from last 24 hours 03/08/21 03/08/21 03/08/21 04:54 04:54 04:54 WBC 6.9 RBC 3.93 L Hgb 12.4 Hct 37.5 L MCV 95.4 H MCH 31.6 MCHC 33.1 RDW 12.7 Plt Count 153 MPV 11.1 H Neut % (Auto) 60.3 Lymph % (Auto) 27.4 [place] % (Auto) 9.1 Eos % (Auto) 2.3 Baso % (Auto) 0.6 Neut # (Auto) 4.19 Lymph # (Auto) 1.9 [place] # (Auto) 0.6 Eos # (Auto) 0.2 Baso # (Auto) 0.0 Nucleated RBC % (a uto) 0 Nucleated RBCs # 0.0 Sodium 136 Potassium 3.9 Chloride 105 Carbon Dioxide 23 Anion Gap 11.9 BUN 15 Creatinine 0.8 GFR Calculation Not Reportable Glucose 100 Estimat Average Gl ucose 100 Hemoglobin A1c 5.1 Calculated Osmolal ity 283 L Calcium 8.2 L Magnesium 1.9 Total Bilirubin 0.4 AST 10 ALT < 5 Alkaline Phosphata se 87 Troponin T 120 Min [place] Delta Troponin T Troponin T Hi Sens 6Hr Troponin T Hi Sens 6Hr Delta Total Protein 5.7 L Albumin 3.5 Globulin 2.2 Triglycerides 158 H Cholesterol 174 LDL Cholesterol, C alc 109 HDL Cholesterol 33 L LDL/HDL Ratio 3.30 H Cholesterol/HDL Ra johnnie 5.27 H TSH 1.20 03/07/21 03/07/21 17:50 14:35 WBC RBC Hgb Hct MCV MCH MCHC RDW Plt Count MPV Neut % (Auto) Lymph % (Auto) [place] % (Auto) Eos % (Auto) Baso % (Auto) Neut # (Auto) Lymph # (Auto) [place] # (Auto) Eos # (Auto) Baso # (Auto) Nucleated RBC % (a uto) Nucleated RBCs # Sodium Potassium Chloride Carbon Dioxide Anion Gap BUN Creatinine GFR Calculation Glucose Estimat Average Gl ucose Hemoglobin A1c Calculated Osmolal ity Calcium Magnesium Total Bilirubin AST ALT Alkaline Phosphata se Troponin T 120 Min [place] 47.03 H Delta Troponin T 18.03 H* Troponin T Hi Sens 6Hr 28.14 H Troponin T Hi Sens 6Hr Delta -0.86 L Total Protein Albumin Globulin Triglycerides Cholesterol LDL Cholesterol, C alc HDL Cholesterol LDL/HDL Ratio Cholesterol/HDL Ra johnnie TSH Vitals: Last Vital Signs Temp 97.9 F 03/08/21 07:24 Pulse 60 03/08/21 11:01 Resp 59 H 03/08/21 11:01 BP 154/59 03/08/21 11:01 Pulse Ox 94 03/08/21 11:01 Discharge Plan Discharge Patient Disposition: Home Condition: Stable Prescriptions: New amlodipine 5 mg tablet 5 mg PO DAILY Qty: 30 RF: 0 Continued losartan 100 mg tablet 50 mg PO DAILY RF: 0 Hold Instructions: Resume on 02/29/20. primidone 50 mg tablet 50 mg PO BEDTIME RF: 0 famotidine [Acid Licensed Veterinary Technician (famotidine)] 10 mg tablet 20 mg PO DAILY RF: 0 aspirin 325 mg tablet 325 mg PO DAILY RF: 0 carboxymethylcellulose sodium 1 % drops, liquid gel 1 drp ophthalmic (eye) BID RF: 0 fludrocortisone 0.1 mg tablet 0.1 mg PO DAILY RF: 0 oxybutynin chloride 5 mg tablet 5 mg PO BID RF: 0 Vitamin D3 25 mcg (1,000 unit) Tablet 25 mcg PO DAILY RF: 0 citalopram 20 mg tablet 20 mg PO BEDTIME RF: 0 carbidopa-levodopa 25-100 mg tablet 1 tab PO BID RF: 0 Lidocaine Viscous 2 % Solution See Rx Instructions .ROUTE .COMPLEX RF: 0 polyethylene glycol 3350 [Miralax] 17 gram powder in packet 17 g PO DAILY PRN (Reason: Constipation) RF: 0 Tylenol Extra Strength 500 mg tablet 1,000 mg PO BID PRN (Reason: pain) RF: 0 Discharge Orders: Discharge Order (Routine); Ordered 03/08/21 Ordered By: Awais Raza Referrals: Minnie Coello MD [Primary Care Provider] - ([facility] will contact you to schedule an follow-up appointment in 4 to 7 days. If you haven't heard from them by Tuesday. Please call ) Pauline Chui MD [Physician] - 1 week ([facility] will contact you to schedule an follow-up appointment in 1 week. If you haven't heard from them by Tuesday. Please call ) Discharge Diet: Regular Discharge Activity: Resume usual activity Patient Instructions: Amlodipine (By mouth), Hypertensive Crisis (DC), Chest Pain Stoplight, Opioid Safety Discharge Attestations Time Spent in Discharge Care*: less than 30 min Specific Discharge Activities: educating patient, discussing with rn case manager hospice/social workers/dc planners, documenting/other paperwork and evaluating patient/reviewing data Status at Discharge: Cognitive status at discharge: cognitively intact , Behavioral status at discharge: cooperative , Overall status at discharge: patient is back to baseline Quality Metrics Clinical Quality Measures During this hospital stay, did patient experience: None Coding Level of Care Code Acute Chg FW DC note Exam Detailed Diagnoses Non-ST elevation [place] (NSTEMI) I21.4 Hypertensive emergency I16.1 Parkinson's plus syndrome G23.2 Lewy body dementia G31.83; F02.80 Parkinson's disease G20 Shy-Drager syndrome G90.3 Urgency incontinence N39.41
--- NOTE | 2021-03-08 14:40 | PC.NURSE ---
discharge instructions given and explained to pt and daughter .they verb understanding.7 day supply of amlodipine phoned to [facility] in [place]as pt [facility] prescriptions [facility]..and it will take 5-7 days for meds to be delivered from them.discharged via w/c to exit.daughter to drive pt home.
== END 2021-03-08 14:39 | disposition home or self-care (01) | DRG 281 ==
LOC: ER 15:51 → CSU 16:03
PROVIDERS: Admitting Provider Internal Medicine; Emergency Provider Family Medicine; PCP Family Medicine; Visit Provider Internal Medicine
DX: I21.A1 Myocardial infarction type 2 (principal); I16.1 Hypertensive emergency; G90.3 Multi-system degeneration of the autonomic nervous system; I45.10 Unspecified right bundle-branch block; G31.83 Neurocognitive disorder with Lewy bodies; F02.80 Dementia in other diseases classified elsewhere, unspecified severity, without behavioral disturbance, psychotic disturbance, mood disturbance, and anxiety; Z85.46 Personal history of malignant neoplasm of prostate; Z92.3 Personal history of irradiation; R32 Unspecified urinary incontinence; M19.012 Primary osteoarthritis, left shoulder; G89.29 Other chronic pain; Z98.1 Arthrodesis status
CPT/HCPCS: 36415; 71045; 80053; 80061; 83036; 83735; 84443; 84484; 85025; 93005; 93306; 96372; 99291; J1650

== ENCOUNTER 2021-03-16 05:28 | Inpatient (IN) | payer OTHER, MEDICARE, SELFPAY ==
[2021-03-16] VITALS (87 sets, daily range): BP systolic 114–228; BP diastolic 58–113; PULSE 63–80; RESP 2–26; TEMP 36.2–36.9; O2SAT 90–97; BMI 29.0
--- NOTE | 2021-03-16 05:34 | XR_ITS ---
WS: [id number] PORTABLE CHEST HISTORY: Chest pain acute onset. COMPARISON: 03/07/2021 Minimal scar at the LEFT costophrenic angle. No new pneumonia. Normal vasculature. No pleural effusio n or pneumothorax. Cardiac size: Normal. Mediastinum/Aorta: Mild atherosclerosis aorta. Mild bilateral AC joint and glenohumeral joint arthritis. XR/XR chest 1V portable 36022 IMPRESSION: 1. Mild atherosclerosis aorta. 2. No acute cardiopulmonary findings.
--- NOTE | 2021-03-16 05:34 | ECG_ITS ---
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: : 1940 Requested By: Joey Luo Order Number: [id number] Reading MD: JETHRO JOHNSON Measurements Intervals [place] Rate: 69 P: 68 OR: 186 QRS: -42 QRSD: 144 T: 0 QT: 436 QTc: 468 Interpretive Statements SINUS RHYTHM LEFT AXIS DEVIATION [QRS AXIS < -30] RIGHT BUNDLE BRANCH BLOCK [120+ ms QRS DURATION, UPRIGHT V1, 40+ ms S IN I/aVL/V4/V5/V6] MINIMAL VOLTAGE CRITERIA FOR LVH, CONSIDER NORMAL VARIANT [MEETS CRITERIA IN ONE OF: R(aVL), S(V1), R(V5), R(V5/V6)+S(V1)] POSSIBLE SEPTAL MYOCARDIAL INFARCTION , OF INDETERMINATE AGE [30 ms Q WAVE IN V1/V2] INTERPRETATION BASED ON A DEFAULT AGE OF 40 YEARS Compared to ECG 03/07/2021 18:42:43 No significant changes Electronically Signed On 03-16-2021 21:24:19 CDT by JETHRO JOHNSON [id number] f
[2021-03-16 05:51] LABS: Basophils % 0.6 %; Eosinophils # 0.2 10^3/uL (0.0-0.8); Eosinophils % 2.2 %; Hematocrit 42.2 % (42.0-52.0); Lymphocytes # 2.1 10^3/uL (0.8-4.8); Lymphocytes % 28.9 %; Mean Corpuscular HGB Conc 33.2 g/dL (30.0-36.0); Mean Corpuscular Hemoglobin 31.4 pg (28.0-34.0); Mean Corpuscular Volume 94.6 fL (80-94); Mean Platelet Volume 10.2 fL (7.4-10.4); Monocytes # 0.8 10^3/uL (0.2-0.9); Monocytes % 10.4 %; Neutrophils # 4.18 10^3/uL (1.8-7.7); Neutrophils % 57.8 %; Nucleated Red Blood Cells % 0 %; Platelet Count 173 10^3/cmm (130-400); Red Blood Count 4.46 10^6/uL (4.1-5.3); Red Cell Distribution Width 12.9 % (12.1-15.1); White Blood Count 7.2 10^3/uL (4.0-10.0)
--- NOTE | 2021-03-16 05:55 | ED_ITS ---
HPI - Chest Pain General: Chief Complaint: Chest Pain Stated Complaint: chest pain Time Seen by Provider: 03/16/21 05:34 History of Present Illness: HPI narrative: 81-year-old male who presents emergency room with episode of chest pain. Began this morning after he got up to go to the bathroom was way back to bed after he got a bed left-sided chest pain which radiated into his left arm this lasted for little over an hour and resolved after he arrived here. He did not have any diaphoresis nausea or vomiting with it he was very minimally short of breath. 9 days ago he was admitted with accelerated hypertension and a positive delta of 18 on his 2-hour troponin. Echocardiogram was negative he was discharged home on amlodipine for his blood pressure. He did not have an angiogram or a stress test while he was inpatient. He has a hit history of Lewy body dementia as well as Parkinson and prostate cancer. At the time he seen he is a significantly hypertensive but he is pain-free. MD complaint: chest pain Onset (ago): hour(s) Timing of current episode: episodic Prior episodes: Yes Onset: during rest Pain location: left chest Pain radiation: left arm Severity: moderate Quality: heaviness Relieving factors: rest Exacerbating factors: nothing Associated symptoms: Deny abdominal pain, diaphoresis, dyspnea, fever(s), leg edema, nausea, palpitations, sense of impending doom, syncope or vomiting Treatment prior to arrival: none Review of Systems Const: Denies: fever(s) or diaphoresis ENMT: Denies: throat pain, ear or mastoid pain, nasal discharge or nasal congestion Card: Denies: palpitations or syncope Resp: Denies: dyspnea GI: Denies: abdominal pain, nausea or vomiting : Denies: flank pain, dysuria, urinary frequency or urinary urgency Skin/Breast: Denies: rash or pruritus PFSH ED PFSH: Medical History Arthritis of left acromioclavicular joint Chronic pain Hypertensive emergency Lewy body dementia Lower urinary tract symptoms (LUTS) Non-ST elevation [place] (NSTEMI) 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 Tamia Foley. Bilateral L3-L4 hemilaminotomy/foraminotomy, with limited discectomy. Bilateral L2-L3 laminotomy/foraminotomy. Family History Grandmother CAD (coronary artery disease) Cancer Myocardial infarct Family/Other Hypertension Mother , at age 95 No problems noted. Father , at age 39 Blood clot associated with vein wall inflammation Social History Smoking and tobacco status: never smoked Alcohol intake: never Household members: family and children Marital status: / Current occupational status: retired History of recent travel: No Physical Exam Const: COMMON NORMALS: no acute distress GENERAL APPEARANCE: cooperative and comfortable HENMT: COMMON NORMALS: normocephalic, atraumatic and hearing grossly normal bilaterally HEAD & SCALP: normocephalic and atraumatic Neck/C-Spine: COMMON NORMALS: no JVD Resp: COMMON NORMALS: normal respiratory effort, No retractions, No use of accessory muscles and clear to auscultation bilaterally AUSCULTATION: clear to auscultation bilaterally Cardio: COMMON NORMALS: no JVD, regular rate, regular rhythm and No murmurs present (Cardio) RATE: regular rate RHYTHM: regular rhythm GI: COMMON NORMALS: Soft to palpation and No hepatosplenomegaly present AUSCULTATION: Yes normoactive bowel sounds PALPATION: Yes Soft to palpation, No Tenderness to palpation present (GI), No Guarding due to palpation present (GI) and Yes No hepatosplenomegaly present Extremity: COMMON NORMALS: normal to inspection, capillary refill normal, no clubbing, cyanosis or edema, no calf tenderness and no pedal edema Skin: COMMON NORMALS: no rashes or lesions noted GENERAL SKIN EXAM: no rashes or lesions noted Course Vital Signs: Vital signs: Vital Signs Temperature 97.9 F 03/16/21 05:34 Pulse Rate 63 03/16/21 07:40 Respiratory Rate 12 03/16/21 07:40 Blood Pressure 167/95 03/16/21 07:40 Pulse Oximetry 96 03/16/21 07:40 MDM - Chest Pain MDM Narrative: Medical decision making narrative: Patient had chest pain after having nitro applied just walking about 15 or 20 feet. Ad[facility] consult cardiology given has had chest pain at rest and with minimal exertion monitor the stress testing at this point will help block cardiology make recommendations discussed Dr. Wright orders written. Lab Data: Labs: Lab Results 03/16/21 03/16/21 03/16/21 Range/Units 05:39 05:39 05:39 WBC 7.2 (4.0-10.0) 10^3/ uL RBC 4.46 (4.1-5.3) 10^6/u L Hgb 14.0 (11.7-16.6) g/dL Hct 42.2 (42.0-52.0) % MCV 94.6 H (80-94) fL MCH 31.4 (28.0-34.0) pg MCHC 33.2 (30.0-36.0) g/dL RDW 12.9 (12.1-15.1) % Plt Count 173 (130-400) 10^3/c mm MPV 10.2 (7.4-10.4) fL Neut % (Auto) 57.8 % Lymph % (Auto) 28.9 % [place] % (Auto) 10.4 % Eos % (Auto) 2.2 % Baso % (Auto) 0.6 % Neut # (Auto) 4.18 (1.8-7.7) 10^3/u L Lymph # (Auto) 2.1 (0.8-4.8) 10^3/u L [place] # (Auto) 0.8 (0.2-0.9) 10^3/u L Eos # (Auto) 0.2 (0.0-0.8) 10^3/u L Baso # (Auto) 0.0 (0.0-0.1) 10^3/u L Nucleated RBC % (a uto) 0 % Nucleated RBCs # 0.0 /100WBC Sodium 138 (136-145) mmol/L Potassium 4.0 (3.5-5.1) mmol/L Chloride 104 (98-107) mmol/L Carbon Dioxide 23 (22-29) mmol/L Anion Gap 15.0 (5-19) BUN 22 (8-23) mg/dL Creatinine 0.7 (0.7-1.2) mg/dL GFR Calculation Not Reportable Glucose 96 (65-115) mg/dL Calculated Osmolal ity 289 (285-295) mOsm/k g Calcium 8.5 (8.5-10.5) mg/dL Total Bilirubin 0.4 (0.15-1.2) mg/dL AST 12 (0-40) U/L ALT 9 (0-41) U/L Alkaline Phosphata se 118 (40-130) IU/L Creatine Kinase 84 (39-308) U/L Troponin T Baselin e 19 H (0-15) ng/L NT-Pro-B Natriuret Pep 184 (0-450) pg/mL Total Protein 6.6 (6.6-8.7) g/dL Albumin 4.4 (3.5-5.2) g/dL Globulin 2.2 (1.3-4.6) g/dL Discharge Plan Discharge Patient Disposition: Admitted As Inpatient Admit Provider: Luis Alberto Chan Clinical Impression: Chest pain, Parkinson's disease, Hypertensive emergency, Dementia, History of prostate cancer Condition: Stable Coding Level of Care Code ED Fire Control Technician G for Tommieg Fwd Exam Comprehensive
[2021-03-16] MEDS: amlodipine 10 mg Tablet PO (06:20)
[2021-03-16 06:22] LABS: Troponin(5th) Baseline 19 ng/L (0-15)
[2021-03-16 06:31] LABS: Alanine Aminotransferase 9 U/L (0-41); Albumin Level 4.4 g/dL (3.5-5.2); Alkaline Phosphatase 118 IU/L (40-130); Aspartate Amino Transferase 12 U/L (0-40); Blood Urea Nitrogen 22 mg/dL (8-23); Calcium 8.5 mg/dL (8.5-10.5); Carbon Dioxide 23 mmol/L (22-29); Chloride 104 mmol/L (98-107); Creatine Phosphokinase 84 U/L (39-308); Globulin 2.2 g/dL (1.3-4.6); Glucose 96 mg/dL (65-115); NT Pro B Type Natriuretic Pept 184 pg/mL (0-450); Osmolality Calculated 289 mOsm/kg (285-295); Sodium 138 mmol/L (136-145); Total Bilirubin 0.4 mg/dL (0.15-1.2); Total Protein 6.6 g/dL (6.6-8.7)
[2021-03-16] MEDS: aspirin 81 mg Chew Tablet 324 MG PO (07:33)
[2021-03-16] MEDS: nitroglycerin 1 gm/inch oint Pkt 1 INCH TOPICAL ×2 (07:33→15:49)
--- NOTE | 2021-03-16 07:34 | ECG_ITS ---
[facility] Test Date: 2021-03-16 Pat Name: Renny Matos Department: Room: Gender: Male Training Specialist: : 1940 Requested By: Joey Luo Order Number: [id number] Reading MD: JETHRO JOHNSON Measurements Intervals [place] Rate: 66 P: 64 VA: 196 QRS: -29 QRSD: 133 T: 18 QT: 432 QTc: 453 Interpretive Statements SINUS RHYTHM RIGHT BUNDLE BRANCH BLOCK [120+ ms QRS DURATION, UPRIGHT V1, 40+ ms S IN I/aVL/V4/V5/V6] POSSIBLE SEPTAL MYOCARDIAL INFARCTION , PROBABLY OLD [30 ms Q WAVE IN V1/V2] Compared to ECG 03/16/2021 05:34:17 Left-axis deviation no longer present Myocardial infarct finding still present Electronically Signed On 03-16-2021 21:30:09 CDT by JETHRO JOHNSON [id number]
[2021-03-16 08:05] LABS: Troponin 5 2HR 63.77 ng/L (0-15)
[2021-03-16 08:13] LABS: Troponin 5 2HR Delta 44.77 ABS# (0-10)
--- NOTE | 2021-03-16 08:20 | P.HP_ITS ---
Providers/Chief Complaint Admitting Physician: Luis Alberto Chan MD Primary Care Provider: Minnie Coello MD Chief Complaint: chest pain History of Present Illness Renny Matos is a 81 year old male who presents to the emergency department with complaints of chest discomfort. He reports he has had several episodes of chest discomfort since his discharge but he was concerned with discomfort occurring 5 AM this morning. It lasted approximately 1 hour. It radiated to his arm. He had gotten up to go urinate when it occurred. While in the emergency department he had a brief episode which he equates to around 10 seconds or so of recurrent chest discomfort. He states it is an ache or sharp discomfort. It will occasionally radiate to his left arm. There is no associated nausea, diaphoresis, or shortness of breath. He was recently admitted to the hospital on March 07 with hypertensive emergency and chest discomfort. Blood pressure medications were adjusted and he was discharged home on the with cardiology follow-up and plans to do a nuclear stress test. Amlodipine was initiated at that time. He denies any cough, fever, exposure to Covid. He received Codasip vaccine with his last injection January 16. Of note, his fludrocortisone was prescribed as needed if blood pressure is low and he has not taken any fludrocortisone in over 3 weeks. He has had no syncope, presyncope, dizziness. He was placed on this for orthostatic hypotension. Review of Systems General: Reports: 10 or more systems reviewed and unremarkable except in HPI and below Const: Denies: fever(s) Eyes: Denies: change in vision ENMT: Denies: throat pain Card: Reports: chest pain Resp: Denies: dyspnea GI: Denies: abdominal pain, nausea, vomiting, hematochezia or melena : Denies: flank pain Musc: Denies: neck pain Skin/Breast: Denies: rash Neuro: Denies: headache(s) Psych: Denies: anxiety or depression Endo: Denies: polyuria Griffin/Lymph: Denies: easy bruising All/Imm: Denies: urticaria Medications/Allergies Home Medications Medication Instructions Recorded Confirmed Last Taken Type losartan 100 mg tablet 50 mg PO DAILY 12/05/19 03/07/21 03/07/21 08:00 History Lidocaine Viscous See Rx Instructions .ROUTE .COMPLEX 02/14/20 03/07/21 Unknown History polyethylene glycol 3350 [Miralax] 17 g PO DAILY PRN 02/14/20 03/07/21 Unknown History primidone 50 mg tablet 50 mg PO BEDTIME tab 04/08/20 03/07/21 03/06/21 21:00 History aspirin 325 mg tablet 325 mg PO DAILY 07/07/20 03/07/21 03/07/21 09:00 History acetaminophen 500 mg tablet 1,000 mg PO BID PRN tab 08/12/20 03/07/21 Unknown History carboxymethylcellulose sodium 1 % 1 drp OPHTHALMIC (EYE) BID 01/14/21 03/07/21 03/06/21 20:00 History eye liquid gel drops famotidine 10 mg tablet 20 mg PO DAILY tab 02/17/21 03/07/21 03/07/21 08:00 History fludrocortisone 0.1 mg tablet 0.1 mg PO DAILY 02/17/21 03/07/21 03/07/21 08:00 History oxybutynin chloride 5 mg tablet 5 mg PO BID 02/17/21 03/07/21 03/07/21 08:00 History Vitamin D3 25 mcg PO DAILY 03/07/21 03/07/21 03/07/21 08:00 History carbidopa-levodopa 1 tab PO BID 03/07/21 03/07/21 03/07/21 09:00 History citalopram 20 mg PO BEDTIME 03/07/21 03/07/21 03/06/21 21:00 History amlodipine 5 mg PO DAILY #30 tab 03/08/21 Unknown Rx Allergies Allergy/AdvReac Type Severity Reaction Status Date / Time hydrocodone Allergy HALLUCINATI Verified 03/16/21 05:39 ONS zonisamide [From Zonegran] Allergy HIVES Verified 03/16/21 05:39 metoprolol AdvReac BRADYCARDIA Verified 03/16/21 05:39 Penicillins AdvReac UNKNOWN Verified 03/16/21 05:39 pravastatin AdvReac MUSCLE PAIN Verified 03/16/21 05:39 PFSH Acute 2 PFSH: Medical History (Updated 03/16/21 @ 08:33 by Luis Alberto Chan MD) Arthritis of left acromioclavicular joint Chronic pain Hypertensive emergency Lewy body dementia Lower urinary tract symptoms (LUTS) Non-ST elevation MD (NSTEMI) 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 Tamia Foley. Bilateral L3-L4 hemilaminotomy/foraminotomy, with limited discectomy. Bilateral L2-L3 laminotomy/foraminotomy. Family History Grandmother CAD (coronary artery disease) Cancer Myocardial infarct Family/Other Hypertension Mother , at age 95 No problems noted. Father , at age 39 Blood clot associated with vein wall inflammation Social History Smoking and tobacco status: never smoked Alcohol intake: never Household members: family and children Marital status: / Current occupational status: retired History of recent travel: No Vitals/I&O/Wt Last Vital Signs Temp 97.9 F 03/16/21 05:34 Pulse 63 03/16/21 07:40 Resp 12 03/16/21 07:40 BP 167/95 03/16/21 07:40 Pulse Ox 96 03/16/21 07:40 Weight last 48 hrs Weight 81.647 kg Physical Exam Narrative: EXAM NARRATIVE: General exam is no apparent distress HEENT: Pupils equally round. Oropharynx clear. Neck is supple no lymphadenopathy or thyromegaly Cardiovascular regular rate and rhythm without murmur, no S3 or S4 Lungs clear no wheezing or crackles Abdomen is soft nontender with positive bowel sounds. Scars noted right side. was deferred Extremities no cyanosis clubbing or edema, cap refill brisk Skin no rash Neurologic: No focal deficits. Right upper extremity tremor noted with rest. Data : 03/16/21 05:39 03/16/21 05:39 Other data: LFTs are normal Initial troponin XIX, repeat 63 with a delta of 44. LDL tested last hospital stay 109 Chest xray no infiltrate. Echo 4/18 grade 2 diastolic dysfunction. Normal EF. EKG demonstrates normal sinus rhythm, left axis deviation, right bundle branch block. No ST elevation is noted. A&P Assessment and plan (1) Chest pain: Has had multiple episodes of discomfort since his previous hospital stay. Needs evaluation currently. Status: Acute (2) Non-ST elevation MD (NSTEMI): Increase in troponin consistent with non-ST elevation myocardial infarction He has received an aspirin in the emergency department Secondary to recurrent chest discomfort in the emergency department he will need CSU or ICU overflow in case nitroglycerin drip is needed. Currently he is pain- free with nitroglycerin ointment Has history of significant bradycardia with beta-blockers according to his allergy list so at this point avoid initiation Start statin. Patient with history of muscle pain in the past. Will have to monitor for any recurrence. Full dose anticoagulation with Lovenox We will discuss with cardiology if they wish to load with Plavix Morphine for any breakthrough pain Status: Acute (3) Orthostatic hypotension: He has not been taking his fludrocortisone in the last 3 weeks. Prior to this it was as needed. Status: Acute (4) Hypertension: Continue amlodipine. Increase to 10 mg. Continue nitroglycerin ointment Continue losartan TSH was recently checked and normal. 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
--- NOTE | 2021-03-16 09:27 | PM.CONSULT ---
Providers/Reason For Consult Consulting Physican/Specialty*: Dr. 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 He came in with chief complaint of acute onset of chest pain and blood pressure was 238/101 mm Hg on arrival. He was discharged on his home losartan 50 mg p.o. daily and was started on amlodipine 5 mg p.o. daily. He saw me last tuesday in office and plan was to do stress test. It seems like he developed chest pain again earlier this morning and came back to ER again. He had minor episode of chest pain last night and then another one this morning at 4:30 am that persisted and hence he came to ER for further evaluation. BP at home and in ER markedly elevated. No ST-T wave changes noted on EKG but troponin increase from ~20 to 65. I have been asked to evaluate and assist in further management. Patient remains CP free at the time with NTG patch. . Review of Systems Const: Denies: fever(s), chills or body aches Eyes: Denies: change in vision or blurry vision ENMT: Reports: change in hearing and tinnitus (unchanged); Denies: throat pain, hoarseness or mouth pain Card: Reports: lightheadedness; Denies: chest pain, edema, swelling of feet/ankles, syncope, pre-syncope or dyspnea on exertion Resp: Denies: dyspnea, productive cough, non-productive cough or wheezing GI: Denies: abdominal pain, nausea, vomiting, hematemesis or coffee ground emesis : Denies: flank pain, difficulty urinating or urinary urgency Musc: Reports: back pain, joint pain and muscle cramps Skin/Breast: Denies: rash, pruritus, erythema, photosensitivity or skin pain Neuro: Reports: weakness in extremities, frequent falls and dizziness; Denies: headache(s) Psych: Denies: anxiety, depression, mood swings, suicidal ideation or homicidal ideation Endo: Denies: polyuria, polydipsia or excessive sweating Griffin/Lymph: Denies: easy bruising or easy bleeding All/Imm: Denies: urticaria, throat swelling, tongue swelling, facial swelling, acute wheezing, itchy eyes, seasonal rhinorrhea or food intolerance Meds/Allergies Home Medications and Allergies Home Medications Medication Instructions Recorded Confirmed Last Taken Type losartan 100 mg tablet 50 mg PO DAILY 12/05/19 03/07/21 03/07/21 08:00 History Lidocaine Viscous See Rx Instructions .ROUTE .COMPLEX 02/14/20 03/07/21 Unknown History polyethylene glycol 3350 [Miralax] 17 g PO DAILY PRN 02/14/20 03/07/21 Unknown History primidone 50 mg tablet 50 mg PO BEDTIME tab 04/08/20 03/07/21 03/06/21 21:00 History aspirin 325 mg tablet 325 mg PO DAILY 07/07/20 03/07/21 03/07/21 09:00 History acetaminophen 500 mg tablet 1,000 mg PO BID PRN tab 08/12/20 03/07/21 Unknown History carboxymethylcellulose sodium 1 % 1 drp OPHTHALMIC (EYE) BID 01/14/21 03/07/21 03/06/21 20:00 History eye liquid gel drops famotidine 10 mg tablet 20 mg PO DAILY tab 02/17/21 03/07/21 03/07/21 08:00 History fludrocortisone 0.1 mg tablet 0.1 mg PO DAILY 02/17/21 03/07/21 03/07/21 08:00 History oxybutynin chloride 5 mg tablet 5 mg PO BID 02/17/21 03/07/21 03/07/21 08:00 History Vitamin D3 25 mcg PO DAILY 03/07/21 03/07/21 03/07/21 08:00 History carbidopa-levodopa 1 tab PO BID 03/07/21 03/07/21 03/07/21 09:00 History citalopram 20 mg PO BEDTIME 03/07/21 03/07/21 03/06/21 21:00 History amlodipine 5 mg PO DAILY #30 tab 03/08/21 Unknown Rx Allergies Allergy/AdvReac Type Severity Reaction Status Date / Time hydrocodone Allergy HALLUCINATI Verified 03/16/21 05:39 ONS zonisamide [From Zonegran] Allergy HIVES Verified 03/16/21 05:39 metoprolol AdvReac BRADYCARDIA Verified 03/16/21 05:39 Penicillins AdvReac UNKNOWN Verified 03/16/21 05:39 pravastatin AdvReac MUSCLE PAIN Verified 03/16/21 05:39 Current Medications Current Medications Generic Name Dose Route Start Last Admin Trade Name Freq PRN Reason Stop Dose Admin Nitroglycerin 1 inch 03/16/21 08:54 03/16/21 08:57 Nitroglycerin 1 Gm/Inch Oint Pkt TOPICAL Not Given Q6H LISBET PFSH Acute PFSH: Medical History Arthritis of left acromioclavicular joint Chronic pain Hypertensive emergency Lewy body dementia Lower urinary tract symptoms (LUTS) Non-ST elevation IN (NSTEMI) 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 Tamia Foley. Bilateral L3-L4 hemilaminotomy/foraminotomy, with limited discectomy. Bilateral L2-L3 laminotomy/foraminotomy. Family History Grandmother CAD (coronary artery disease) Cancer Myocardial infarct Family/Other Hypertension Mother , at age 95 No problems noted. Father , at age 39 Blood clot associated with vein wall inflammation Social History Smoking and tobacco status: never smoked Alcohol intake: never Household members: family and children Marital status: / Current occupational status: retired History of recent travel: No Vitals/I&O/Wt Last Vital Signs Temp 98.4 F 03/16/21 09:00 Pulse 68 03/16/21 09:15 Resp 15 03/16/21 09:15 BP 168/92 03/16/21 08:21 Pulse Ox 92 03/16/21 09:15 Weight last 48 hrs Weight 180 lb Physical Exam Narrative: EXAM NARRATIVE: Gen: kunal gentleman lying in bed in NAD HEENT/Neck: No JVD, EOMI RS: CTAB/L, No wheezeing, rales or rhochi CVS: S1, S2 regular, No murmur, rub or gallop PA: soft, NT, ND, BS+ FIREBRICK LAYER HELPER: AAOx 3, No FND Ext: No edema, cyanosis or pallor Data Imaging^: Other Imaging: I personally reviewed and interpreted this imaging study as follows: My impression: 03/08/21 ECHO CONCLUSIONS 1. This is a technically difficult study. 2. Normal left ventricular size, systolic function and wall thickness, with no diagnostic regional wall motion abnormalities. Left ventricular ejection fraction is estimated at 60-65 %. Grade II diastolic dysfunction, moderately elevated filling pressures. 3. Normal right ventricular size and systolic function. 4. No significant valvular abnormality. 5. When compared to previous echocardiogram dated 01/15/20, there has been no significant change. 01/14/20 CAROTID US CONCLUSIONS Moderate heterogeneous plaques of the left bifurcation and the proximal internal carotid artery. Mild to moderate plaques at the right bifurcation and internal carotid artery No significant stenosis, based on the above findings The study from 04/26/2017, there is slight increase in the plaque densities bilaterally. Lexiscan stress test (02/13/2018) IMPRESSIONS 1. Myocardial perfusion imaging revealing patchy areas of persistent decreased tracer uptake in the anteroseptal and inferolateral wall regions, most likely represent activation artifacts. 2. Normal LV ejection fraction 78%. 3. LV wall motion analysis revealed no gross wall motion abnormalities. 4. Normal LV volume. No significant coronary ischemia, based on the above findings. No previous studies available for comparison. Coronary angiogram (08/06/10) LEFT VENTRICULOGRAPHY: Single plane left ventriculography in the right oblique projection shows a normal sized left ventricular cavity, normal contractility, ejection fraction 70 percent. There is at most trace of mitral insufficiency. CORONARY ARTERIOGRAPHY: The left main coronary artery is free of disease. The ostium and proximal anterior descending showed diffuse disease over a segment of about 2 cm. Septal overlap made assessment of this lesion rather difficult using angiography alone. A fractional flow reserve was performed on this and is described below. The mid LAD showed 25 percent irregularity. This distal LAD showed irregularity of 35 percent. The distal anterior descending is medium in caliber and just reaches the apex. The diagonals are all small and short and free of significant disease. Left circumflex starts as a large vessel in the AV groove with 25 percent irregularity. Subsequently it narrows to about 35 percent before a bifurcation into the two major marginals, each of which is medium and long and free of significant disease. The right coronary artery is dominant with 30 percent irregularity proximally. The distal right coronary provides a posterior descending which is long and medium to large in caliber. There is about 30 percent ostial tapering in the right coronary artery. Otherwise, the distal right coronary provides only tiny left ventricular branches and mid and distal right coronary system is free of significant disease. A right ventricular branch is small caliber and moderate length and shows 80 percent ostial narrowing. FRACTIONAL FLOW RESERVE PROXIMAL LAD: The left coronary was engaged with a CLS 3.5 6-[place] guiding catheter. The RADI pressure wire was equalized and then advanced across the lesion in the LAD. Intravenous Adenosine, 180 mcg per kg per minute was administered for approximately three minutes with a minimum fractional flow reserve determined of 0.84 during that period of A&P Assessment and plan (1) Non-ST elevation IN (NSTEMI): Given recurrent hospitalizations for chest pain with elevated troponins and h/o mild to moderate CAD in past. -Concern for NSTEMI type 1. -Plan for [facility] with Dr. Martinez. -continue ASA, statin and lovenox in ER. Recent echo TDS with normal LV function and no diagnostic regional wall motion abnormality. plavix 300 mg POx 1. -Case was discussed with DR. Martinez as well as patient and family. Decision to proceed with the procedure later today. Status: Acute (2) CAD (coronary artery disease): Non obstructive CAD by prior cath and normal MPI on last stress test. Status: Acute Qualifiers: Associated angina: with unspecified form of angina Coronary Disease-Associated Artery/Lesion type: [place] artery [place] vs. transplanted heart: [place] heart Qualified Code(s): I25.119 - Atherosclerotic heart disease of [place] coronary artery with unspecified angina pectoris (3) Hypertension: Status: Acute Qualifiers: Hypertension type: essential hypertension Qualified Code(s): I10 - Essential (primary) hypertension (4) Parkinson's disease: Status: Acute Additional A&P Information Autonomic neuropathy Orthostatic hypotension Thank you for allowing me to participate in patient's care. Please feel free to call with questions or concerns. Consult Attestations Time Spent in Patient Care: Greater than 35 minutes (>than 50% of time spent in counselling and/or direct pt care on unit). 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 transplanted heart: [place] heart Hypertension I10 Hypertension type: essential hypertension Parkinson's disease G20
[2021-03-16] MEDS: famotidine 20 mg Tablet PO (09:45)
[2021-03-16] MEDS: oxybutynin 5 mg Tablet PO (09:45)
[2021-03-16] MEDS: losartan 50 mg Tablet PO (09:45)
[2021-03-16] MEDS: carbidopa-levodopa 25-100mg Tablet 1 EACH PO (09:46)
--- NOTE | 2021-03-16 10:55 | XACV_ITS ---
Exam Room: [facility] Ht: 168 cm Wt: 82 kg BSA: 1.97 m2 Gender: Male : 1940 Any Known Allergies: Other Exam Priority: Routine Procedure(s): Procedure Description: Diagnostic procedure Procedure Description: PCI procedure Procedure Description: Drug Eluting Coronary Stent Procedure Description: PTCA Procedure Description: Miscellaneous Procedure Description: ACT Procedure Description: Coronary Angiography Diagnostic Cath Status: Urgent Diagnostic Findings * LM has 0% stenosis. * CX has 0% stenosis. * Proximal Left Anterior Descending Coronary Artery: Severe 95% stenosis, NOEL: 2 flow. * Mid Left Anterior Descending Coronary Artery: Severe 95% stenosis, NOEL: 2 flow. * dLAD: Severe 80% stenosis, NOEL: 2 flow. * Second Obtuse Marginal Branch Segment: Severe 90% stenosis, NOEL: 2 flow. * mRCA: Mild 30% stenosis, NOEL: 3 flow. * Coronary angiography shows right dominance. Interventional Findings * Proximal Left Anterior Descending Coronary Artery: 95% stenosis treated with MDT R ANDREY 2.75X30 ANGELES and MDT NC EUPHORA RX [id number] BALLOON. 0% residual stenosis, NOEL: 3 flow. * Mid Left Anterior Descending Coronary Artery: 95% stenosis treated with MDT R ANDREY 2.25X12 ANGELES, AB MINI TREK 2.00X20 RX BALLOON, and MDT R ANDREY 2.5X18 ANGELES. 0% residual stenosis, NOLE: 3 flow. * dLAD: 80% stenosis treated with Drug Eluting Stent. 0% residual stenosis, NOEL: 3 flow. * Second Obtuse Marginal Branch Segment: 90% stenosis treated with MDT R ANDREY 3.0X18 ANGELES. 0% residual stenosis, NOEL: 3 flow. Conclusions 1. There is severe coronary artery disease with two vessel disease. 2. Proximal Left Anterior Descending Coronary Artery was treated with Drug Eluting Stent and Balloon. 3. Mid Left Anterior Descending Coronary Artery was treated with two Drug Eluting Stent and Balloon. 4. dLAD was treated with Drug Eluting Stent. 5. Second Obtuse Marginal Branch Segment was treated with Drug Eluting Stent. Recommendations * Continue current medical management and risk factor modification. Pressures Phase:Rest AO : 136 / 69 ( 97 ) @ 11:59:00 AM 171 / 76 ( 115 ) @ 12:16:00 PM 112 / 60 ( 83 ) @ 12:28:00 PM 121 / 70 ( 93 ) @ 12:31:00 PM 193 / 82 ( 130 ) @ 12:36:00 PM 99 / 52 ( 70 ) @ 12:38:00 PM 141 / 71 ( 101 ) @ 12:46:00 PM Clinical Evaluation EBL: 5mL-10mL Procedural Details Procedure Consent Obtained. Pre-Procedure Time Out. Identified patient by full name and date of as verbalized by the patient/guarantor. Does the consent match the physician's order: Yes. Accurate & Complete Informed Consent: Yes. Inpatient/Outpatient History & Physical on Chart: Yes. If H&P is completed, is and addenduem needed: No; If yes, is the addendum complete: N/A. Visualize and Verify Site with Patient/Guarantor: N/A. Relevant Radiology Images available: N/A. Pre-op teaching completed and patient verbalized understanding. The risks, benefits, and alternatives of sedation and/or procedure were discussed by physician. The patient agrees to continue. Physician arrived. Procedure started. [facility] Clinical Fraility Score: 3: Managing Well. Sales Attendant Indications: ACS <= 24 hours. Chest Pain Symptom Assessment: Typical Angina Symptoms. Correct patient, site and procedure confirmed by cath team. PERRLA. Strong, equal hand supervisor shaving and splitting bilaterally. Lungs clear x 5 lobes. IV Site on Arrival: 20 gauge in the left forearm. IV Fluids: 0.9% NaCl at KVO. 0 mL infused prior to cath lab radiological technologist. Pre Procedural Pulses: bilateral radial was 1+. Oxygen started at 2liters/min via nasal canula. Pre Procedural Pulses: bilateral dorsalis pedis was 1+. Pre Procedural Pulses: bilateral posterior tibial was 1+. bilateral groins was prepped with chloroprep then draped in the usual sterile fashion. Baseline sample Acquired. HR: 69 BPM. Equipment: 6F - Femoral. Cardiac Cath Pack. ACIST Manifold Kit Model BT 2000. Heparinized Saline (2 units/mL), 1000 mL bag. Kit, Micropuncture. Physician scrubbed in. Immediate Pre-Procedure Time Out. Correct Patient: Yes; Correct Procedure: Yes; Correct Site: Yes; Correct Patient Position: Yes; Correct Supplies: Yes; Dried Flammable Prep: Yes; Blood Products Available: N/A;. Lidocaine 1% infiltrated to the right groin. Arterial access obtained with micropuncture set. A 5 omani JL4 catheter in over wire. Multiple views taken of left coronary artery. Catheter removed over the exchange wire. A CRD 5F JR4 Diagnostic Catheter was advanced over the wire and used for Right coronary angiography. Multiple views taken of right coronary artery. Dr Chiu arrived to discuss the procedure. Dr Martinez and Dr Chiu speaking with family to discuss the procedure. Pt arrived with nitro patch to right upper chest. Catheter removed over the exchange wire. Inventory is CRD 6FR XB 3 GUIDE. Inventory is Medtronic [place] XT .014 190cm Str. Guidewire. 6 omani XB 3 guide catheter was inserted over the wire. [place] guidewire was advanced through the guide catheter to lesion in the mid LAD. Inflation Number : 1 A MDT R ANDREY 2.25X12 ANGELES -Lot Number# [id number] exp date 11/09/22 was prepped and advanced across the Mid LAD. The stent was deployed at 12 KAR for 0:14 seconds. Stent balloon out over wire. Results checked. Inflation number : 2 A AB MINI TREK 2.00X20 RX BALLOON was prepped and advanced across the Mid LAD , then inflated to 16 KAR for 0:20 seconds. Inflation number: 3 The AB MINI TREK 2.00X20 RX BALLOON was reinflated across the Mid LAD, to 16 KAR for 0:15 seconds. Balloon out. Inflation Number : 1 A MDT R ANDREY 2.75X30 ANGELES -Lot Number# [id number] exp date 08/09/2021 was prepped and advanced across the Prox LAD. The stent was deployed at 12 KAR for 0:36 seconds. Inflation number : 2 A MDT NC EUPHORA RX [id number] BALLOON was prepped and advanced across the Prox LAD , then inflated to 8 KAR for 0:09 seconds. Inflation number: 3 The MDT NC EUPHORA RX [id number] BALLOON was reinflated across the Prox LAD, to 12 KAR for 0:14 seconds. Balloon out. Inflation Number : 4 A MDT R ANDREY 2.5X18 ANGELES -Lot Number# [id number] exp date 10/21/2022 was prepped and advanced across the Mid LAD. The stent was deployed at 16 KAR for 0:28 seconds. Inflation number: 5 The stent balloon was then re-inflated across the Mid LAD to 16 KAR for 0:21 seconds. Stent balloon out over wire. Results checked. Richmond repositioned to OM 2. Inflation Number : 1 A MDT R ANDREY 3.0X18 ANGELES -Lot Number# [id number] exp date 12/04/2022 was prepped and advanced across the 2nd Ob Sravani. The stent was deployed at 18 KAR for 0:39 seconds. Stent balloon out over wire. Richmond pulled back into guide. Results checked. ACT drawn. Results 247 seconds. Therapeutic limits - pre-heparin administration 90-150 seconds and monitoring heparin during a vascular procedure >250 seconds. Wire out. Guide catheter out. Physician scrubbed out. A Suture was successful obtaining hemostatsis at the Right Femoral artery insertion site. Sheath(s) sutured into position with 2-0 silk and sterile 4x4's and Op-site applied over the site. No oozing or signs and symptoms of hematoma noted. Arterial sheath flushed and connected to tranducer and pressure bag with heparinized saline. Post Procedure: Pulses reassessed and unchanged. PERRLA. Strong, equal hand supervisor shaving and splitting bilaterally. No VTE prophylaxis required. Total IV fluids: 65 mL. Medication's Wasted: Nitro = 49.6 mg. Medication's Wasted: Heparin = 1000 mg. Contrast type used: Omnipaque 300 mgI/mL, 500 mL bottle. Post-op diagnosis: NSTEMI. Complications: none. PCI Indication: NSTE. Estimated blood loss: 5mL-10mL. Procedure completed. Patient transferred by bed to ICU. Vital chart was stopped. Access Site Site: Right Femoral artery Sheath Size: 6 Fr Hemostasis Method: Suture Hemostasis Success: Successful Procedure Medications Start: 12:51 PM Stop: 12:51 PM Medication: Versed Amount: 1 mg Route: I.V. Start: 12:51 PM Stop: 12:51 PM Medication: Fentanyl Amount: 50 mcg Route: I.V. Start: 1:14 PM Stop: 1:14 PM Medication: Heparin Amount: 7000 units Route: I.V. Start: 1:30 PM Stop: 1:30 PM Medication: Heparin Amount: 1000 units Route: I.V. Start: 1:34 PM Stop: 1:34 PM Medication: Versed Amount: 1 mg Route: I.V. Start: 1:34 PM Stop: 1:34 PM Medication: Fentanyl Amount: 50 mcg Route: I.V. Start: 1:37 PM Stop: 1:37 PM Medication: Nitrogylcerin Amount: 400 mcg Route: I.C. Start: 1:37 PM Stop: 1:37 PM Medication: Hydralazine Amount: 10 mg Route: I.V. Start: 1:55 PM Stop: 1:55 PM Medication: Plavix Amount: 300 mg Route: P.O. I, the attending physician, have reviewed and verified all procedure medications. Yes, all medications given per verbal order History/Risk Factors Hypertension: Yes Dyslipidemia: No Peripheral Arterial Disease (PAD): No Myocardial Infarction (SD): Yes Obesity: No Renal Disease: No Prior Interventions PCI: No CABG: No Valve Surgery: No Report Signatures Finalized by Smitha Martinez MD on 03/29/2021 06:27 PM
--- NOTE | 2021-03-16 11:34 | ECG_ITS ---
[facility] Test Date: 2021-03-16 Pat Name: Renny Matos Department: Room: [facility] Gender: Male Block Placer: : 1940 Requested By: Joey Luo Order Number: [id number] Reading MD: JETHRO JOHNSON Measurements Intervals [place] Rate: 64 P: 85 ID: [id number] QRS: -38 QRSD: 131 T: -13 QT: 446 QTc: 462 Interpretive Statements SINUS RHYTHM MARKED LEFT AXIS DEVIATION [QRS AXIS < -30] RIGHT BUNDLE BRANCH BLOCK [120+ ms QRS DURATION, UPRIGHT V1, 40+ ms S IN I/aVL/V4/V5/V6] MODERATE VOLTAGE CRITERIA FOR LVH, CONSIDER NORMAL VARIANT [MEETS CRITERIA IN ONE OF: R(aVL), S(V1), R(V5), R(V5/V6)+S(V1)] Compared to ECG 03/16/2021 07:34:02 Left-axis deviation now present Myocardial infarct finding no longer present Electronically Signed On 03-16-2021 21:29:57 CDT by JETHRO JOHNSON [id number]
[2021-03-16] MEDS: diphenhydrAMINE 50 mg Capsule PO (12:21)
[2021-03-16] MEDS: clopidogrel 300 mg Tablet PO (12:21)
[2021-03-16] MEDS: sodium chloride 0.9% 1,000 ML 50 ML IV (12:23)
--- NOTE | 2021-03-16 12:30 | PC.CHAP ---
Pastoral Care Encounter/Spiritual Assessment Type of Contact [x] Declined welder visit [] Patient/Family/Request visit [] Outpatient visit [] Follow-up visit [] Physician referral [] Code/Alert [] Routine visit [] Staff referral [] Actively dying [] Patient sleeping [] Family support [] [] Out of room [] Palliative care [] [] Receiving care in room [] Pre-surgical visit [] Trauma [] Long length of stay [] ICU visit [] Other: Relational/Emotional Strength [] Patient feels connected with others/family/visitors/staff [] Distress [] Loneliness/isolation [] Abandonment Spirituality of Patient [] Person of Gerda [] Attends Taoism of their Gerda [] Believes in Prayer [] Reads Bible or Sikhism materials [] There are Spiritual issues to be addressed Research Microbiologist Interventions [] Prayer [] Active listening [] Non-anxious presence [] Spiritual/emotional support [] Crisis/trauma care [] Spiritual counseling [] Bereavement support [] Provided bereavement packet [] Provided Bible/devotional materials [] Provided toy/stuffed animal, coloring book to patient or family member [] Provided Communion [] Anointing/[place] [] Salvation [] Completed spiritual assessment [] Other: Impact on Illness or Injury [] Angry [] Fearful [] Anxious [] Often cries [] Exhaustion [] Unable to work [] Unable to attend restorationist [] Unable to walk/stand [] Unable to read [] Unable to drive [] Unable to eat/drink [] Unable to sleep [] Unable to be with family [] Patient intubated [] Other: Summary Time spent with patient
[2021-03-16 12:31] LABS: Troponin 5 6HR 58.02 ng/L (0-15)
--- NOTE | 2021-03-16 12:31 | PC.NURSE ---
To lab animal technologist Pt taken to lab animal technologist via bed by lab animal technologist staff. Pt's daughter at bedside.
[2021-03-16 12:32] LABS: Troponin 5 6HR Delta 39.02 ng/L (0-12)
--- NOTE | 2021-03-16 12:33 | W.PM.OPSUD ---
Surgery/Procedure H&P Update DATE OF PROCEDURE: March 16, 2021 DATE H&P PERFORMED: 03/16/20 H&P UPDATE INFORMATION: I have reviewed H&P completed within last 30 days, I have examined patient prior to procedure, Changes to prior documentation as noted here and H&P to be scanned into chart PREOP DIAGNOSIS: Acute coronary syndrome PATIENT REASSESSED PRIOR TO SEDATION, WITH NO CHANGE NOTED: Yes PHYSICAL EXAM: alert, oriented x 3 and clear to auscultation bilaterally AIRWAY EVAL/ANESTHESIA PLAN: ASA II, Risks, benefits & alternatives of sedation and/or procedure discussed and Patient agrees to continue as planned
[2021-03-16 16:50] LABS: Partial Thromboplastin Time > 250.0 SECONDS (23.9-36.7)
[2021-03-16 18:13] LABS: Partial Thromboplastin Time 72.3 SECONDS (23.9-36.7)
--- NOTE | 2021-03-16 19:20 | PC.NURSE ---
Patient brought to CSU per SANJAY Mata at 1830. No complaints noted at time of arrival. Patient right groin femoral sheath site appears C/D/I. No hematomas present upon arrival. Femoral sheath in place sutured in and attached to a pressure bag. Will continue to monitor patient.
--- NOTE | 2021-03-16 19:25 | PC.NURSE ---
Per Dr. Martinez, please discontinue nitro paste topically.
[2021-03-16] MEDS: atorvastatin 40 mg Tablet PO (19:42)
[2021-03-16] MEDS: citalopram 20 mg Tablet PO (19:42)
[2021-03-16] MEDS: primidone 50 mg Tablet PO (19:42)
[2021-03-16] MEDS: acetaminophen 325 mg Tablet 650 MG PO (19:43)
[2021-03-16 20:32] LABS: Partial Thromboplastin Time 32.3 SECONDS (23.9-36.7)
--- NOTE | 2021-03-16 22:11 | PC.NURSE ---
Sheath removed from right groin at 2142. Manual pressure held for 20 minutes. Patient tolerated well. VSS. Patient educated on activity restrictions and verbalized understanding. Dressing applied to site. No bleeding or hematoma noted. Pedal pulses present and skin WNL.
[2021-03-17] VITALS (7 sets, daily range): BP systolic 101–146; BP diastolic 60–74; PULSE 67–86; RESP 13–19; TEMP 36.6–36.8; O2SAT 94–96
--- NOTE | 2021-03-17 04:33 | PC.NURSE ---
Patient ambulated to bedside commode with assist. right groin site WNL. VSS. Will monitor.
[2021-03-17 05:12] LABS: Basophils % 0.4 %; Eosinophils # 0.2 10^3/uL (0.0-0.8); Eosinophils % 1.9 %; Hematocrit 44.4 % (42.0-52.0); Hemoglobin 14.4 g/dL (11.7-16.6); Lymphocytes # 0.9 10^3/uL (0.8-4.8); Lymphocytes % 9.7 %; Mean Corpuscular HGB Conc 32.4 g/dL (30.0-36.0); Mean Corpuscular Hemoglobin 31.5 pg (28.0-34.0); Mean Corpuscular Volume 97.2 fL (80-94); Mean Platelet Volume 10.5 fL (7.4-10.4); Monocytes # 0.9 10^3/uL (0.2-0.9); Monocytes % 9.5 %; Neutrophils # 7.22 10^3/uL (1.8-7.7); Neutrophils % 78.2 %; Nucleated Red Blood Cells % 0 %; Platelet Count 170 10^3/cmm (130-400); Red Blood Count 4.57 10^6/uL (4.1-5.3); Red Cell Distribution Width 13.1 % (12.1-15.1); White Blood Count 9.3 10^3/uL (4.0-10.0)
[2021-03-17 05:58] LABS: Alanine Aminotransferase 22 U/L (0-41); Albumin Level 3.9 g/dL (3.5-5.2); Alkaline Phosphatase 100 IU/L (40-130); Aspartate Amino Transferase 14 U/L (0-40); Blood Urea Nitrogen 13 mg/dL (8-23); Calcium 8.5 mg/dL (8.5-10.5); Carbon Dioxide 20 mmol/L (22-29); Chloride 103 mmol/L (98-107); Globulin 2.5 g/dL (1.3-4.6); Glucose 106 mg/dL (65-115); Osmolality Calculated 279 mOsm/kg (285-295); Sodium 134 mmol/L (136-145); Total Bilirubin 0.5 mg/dL (0.15-1.2); Total Protein 6.4 g/dL (6.6-8.7)
[2021-03-17] MEDS: amlodipine 10 mg Tablet 5 MG PO (08:18)
[2021-03-17] MEDS: oxybutynin 5 mg Tablet PO (08:18)
[2021-03-17] MEDS: famotidine 20 mg Tablet PO (08:18)
[2021-03-17] MEDS: carbidopa-levodopa 25-100mg Tablet 1 EACH PO (08:18)
[2021-03-17] MEDS: losartan 50 mg Tablet PO (08:18)
[2021-03-17] MEDS: clopidogrel 75 mg Tablet PO (08:18)
[2021-03-17] MEDS: aspirin 325 mg Tablet PO (08:18)
--- NOTE | 2021-03-17 09:42 | PM.DCS ---
Discharge Providers Date of Admission: 03/16/21 07:47 Date of Discharge: March 17, 2021 Attending Provider at Admission: Luis Alberto Chan MD Attending Provider at Discharge: Luis Alberto Chan MD Primary Care Provider: Minnie Coello MD Diagnoses at Discharge Discharge Diagnosis (1) Non-ST elevation LA (NSTEMI): Status: Acute (2) CAD (coronary artery disease): Status: Acute Qualifiers: Coronary Disease-Associated Artery/Lesion type: [place] artery [place] vs. transplanted heart: [place] heart Associated angina: with unspecified form of angina Qualified Code(s): I25.119 - Atherosclerotic heart disease of [place] coronary artery with unspecified angina pectoris (3) Hypertension: Status: Acute Qualifiers: Hypertension type: essential hypertension Qualified Code(s): I10 - Essential (primary) hypertension (4) Parkinson's disease: Status: Acute Reason for Visit Reason for Visit: chest pain Hospital Course Hospital Course Renny is a 81 old white male who presented with chest discomfort to the emergency department. He had had a recent hospitalization where a troponin was elevated and a nuclear stress test was being planned for an outpatient. On arrival his chest discomfort went away. Troponin elevation was consistent with non-ST elevation myocardial infarction. He was placed on aspirin, loaded with Plavix, placed on a statin, and anticoagulated. Cardiology was consulted, and angiogram was performed on March 16. 4 drug-eluting stents were placed. Full report is not yet available. Patient tolerated the procedure without difficulty or complication. The following day he was pain-free. Vital signs were stable. Right groin insertion site for angiogram was without significant hematoma and distally pulse was present. It was thought he could discharge home, with the expectation that he would take Plavix for at least 1 year. Statin was also initiated and side effects including muscle pain which she had had in the past was discussed or complication. Beta-adams was not initiated secondary to significant bradycardia in the past with this treatment. He will follow-up with cardiology in 1 week in 1 month, and his primary care provider in 3 to 5 days. Physical Exam Narrative: EXAM NARRATIVE: General exam no apparent distress Cardiovascular regular rate and rhythm without murmur Lungs clear Abdomen is soft with positive bowel sounds Right groin without significant hematoma. Discharge Data Data Completed and Pending: Completed Studies During Hospitalization Category Date Time Status XR chest 1V vernon ble [id number] Stat Exams 03/16/21 05:34 Completed Pending at discharge Category Date Time Status FINANCIAL ASSISTANCE ADVISOR request for service Routin e Exams 03/16/21 10:55 Taken Labs from last 24 hours 03/17/21 03/17/21 03/16/21 04:30 04:30 20:10 WBC 9.3 RBC 4.57 Hgb 14.4 Hct 44.4 MCV 97.2 H MCH 31.5 MCHC 32.4 RDW 13.1 Plt Count 170 MPV 10.5 H Neut % (Auto) 78.2 Lymph % (Auto) 9.7 [place] % (Auto) 9.5 Eos % (Auto) 1.9 Baso % (Auto) 0.4 Neut # (Auto) 7.22 Lymph # (Auto) 0.9 [place] # (Auto) 0.9 Eos # (Auto) 0.2 Baso # (Auto) 0.0 Nucleated RBC % (a uto) 0 Nucleated RBCs # 0.0 APTT 32.3 D Sodium 134 L Potassium 4.0 Chloride 103 Carbon Dioxide 20 L Anion Gap 15.0 BUN 13 Creatinine 0.8 GFR Calculation Not Reportable Glucose 106 Calculated Osmolal ity 279 L Calcium 8.5 Total Bilirubin 0.5 AST 14 ALT 22 Alkaline Phosphata se 100 Troponin T Hi Sens 6Hr Troponin T Hi Sens 6Hr Delta Total Protein 6.4 L Albumin 3.9 Globulin 2.5 03/16/21 03/16/21 03/16/21 17:35 15:57 12:00 WBC RBC Hgb Hct MCV MCH MCHC RDW Plt Count MPV Neut % (Auto) Lymph % (Auto) [place] % (Auto) Eos % (Auto) Baso % (Auto) Neut # (Auto) Lymph # (Auto) [place] # (Auto) Eos # (Auto) Baso # (Auto) Nucleated RBC % (a uto) Nucleated RBCs # APTT 72.3 H D > 250.0 H* Sodium Potassium Chloride Carbon Dioxide Anion Gap BUN Creatinine GFR Calculation Glucose Calculated Osmolal ity Calcium Total Bilirubin AST ALT Alkaline Phosphata se Troponin T Hi Sens 6Hr 58.02 H Troponin T Hi Sens 6Hr Delta 39.02 H* Total Protein Albumin Globulin Vitals: Last Vital Signs Temp 97.8 F 03/17/21 07:31 Pulse 77 03/17/21 07:31 Resp 13 03/17/21 07:31 BP 101/60 04/27/21 08:18 Pulse Ox 94 03/17/21 07:31 Discharge Plan Discharge Patient Disposition: Home Condition: Stable Prescriptions: New atorvastatin 40 mg Tablet 40 mg PO BEDTIME Qty: 30 RF: 0 clopidogrel 75 mg Tablet 75 mg PO DAILY Qty: 30 RF: 11 aspirin 81 mg tablet,delayed release (DR/EC) 81 mg PO DAILY Qty: 30 RF: 0 Continued losartan 100 mg tablet 50 mg PO DAILY@2099 RF: 0 Hold Instructions: Resume on 02/29/20. primidone 50 mg tablet 50 mg PO BEDTIME@2099 RF: 0 famotidine [Acid Vp [employer] Affairs (famotidine)] 10 mg tablet 20 mg PO DAILY@1099 RF: 0 carboxymethylcellulose sodium 1 % drops, liquid gel 1 drp ophthalmic (eye) BID@ RF: 0 oxybutynin chloride 5 mg tablet 5 mg PO BID@ RF: 0 cholecalciferol (vitamin D3) [Vitamin D3] 25 mcg (1,000 unit) Tablet 75 mcg PO DAILY@ RF: 0 citalopram 20 mg tablet 20 mg PO BEDTIME@2099 RF: 0 carbidopa-levodopa 25-100 mg tablet 1 tab PO BID@ RF: 0 amlodipine 5 mg tablet 5 mg PO DAILY@1099 RF: 0 Lidocaine Viscous 2 % Solution See Rx Instructions .ROUTE .COMPLEX RF: 0 polyethylene glycol 3350 [Miralax] 17 gram powder in packet 17 g PO DAILY PRN (Reason: Constipation) RF: 0 Tylenol Extra Strength 500 mg tablet 1,000 mg PO BID PRN (Reason: pain) RF: 0 Discontinued aspirin 325 mg tablet 325 mg PO DAILY@1099 RF: 0 ibuprofen 200 mg Tablet 600 mg PO DAILY PRN (Reason: Pain) RF: 0 Discharge Orders: Discharge Order (Routine); Ordered 03/17/21 Ordered By: Luis Alberto Chan Referrals: Minnie Coello MD [Primary Care Provider] - 1-3 days Pauline Chiu MD [Physician] - 4-7 days (Follow up with Caroline Goins end of this week, Dr. Chiu 4 weeks.) Discharge Diet: Cardiac Discharge Activity: Increase activity as tolerated Patient Instructions: Left Heart Catheterization (DC), Coronary Angioplasty (DC), Opioid Safety Activity Restrictions/Additional Instructions: Take all meds as precribed. Keep followup as directed. Do not miss any doses of your clopidogrel. Discharge Attestations Time Spent in Discharge Care*: greater than 30 min Status at Discharge: Cognitive status at discharge: cognitively intact, Behavioral status at discharge: cooperative, Quality Metrics Clinical Quality Measures During this hospital stay, did patient experience: AMI Clinical Trial Participant: No Contraindication to aspirin (AMI): Aspirin given Contraindication to statin: Statin prescribed Contraindication to PCI: PCI performed Coding Level of Care Code Acute [facility] [place] note Diagnoses Non-ST elevation LA (NSTEMI) I21.4 CAD (coronary artery disease) I25.119 Coronary Disease-Associated Artery/Lesion type: [place] artery [place] vs. transplanted heart: [place] heart Associated angina: with unspecified form of angina Hypertension I10 Hypertension type: essential hypertension Parkinson's disease G20
--- NOTE | 2021-03-17 10:05 | PM.PN ---
Subjective Subjective: Interval history: s/p 3 stents to LAD and another to Lcx. Doing well. No CP overnight. Medications: Reviewed: Yes Vitals/I&O/Wt Last Vital Signs Temp 97.8 F 03/17/21 07:31 Pulse 77 03/17/21 07:31 Resp 13 03/17/21 07:31 BP 101/60 03/17/21 08:18 Pulse Ox 94 03/17/21 07:31 03/16/21 03/17/21 03/17/21 22:59 06:59 14:59 Intake Total 330.833 / 330.833 300 / 630.833 360 / 360 Output Total 1350 / 1350 300 / 1650 Balance -1019.167 / -1019.167 0 / -1019.167 360 / 360 Weight last 48 hrs Weight 180 lb Physical Exam Narrative: EXAM NARRATIVE: Gen: kunal gentleman lying in bed in NAD HEENT/Neck: No JVD, EOMI RS: CTAB/L, No wheezeing, rales or rhochi CVS: S1, S2 regular, No murmur, rub or gallop PA: soft, NT, ND, BS+ EXECUTIVE ACCOUNT MANAGER: AAOx 3, No FND Ext: No edema, cyanosis or pallor. 2+ femoral, DP and PT. No hematoma or bruising. Data : 03/17/21 04:30 03/17/21 04:30 A&P Assessment and plan (1) Non-ST elevation ND (NSTEMI): Given recurrent hospitalizations for chest pain with elevated troponins and h/o mild to moderate CAD in past. s/p ANGELES x 4 to LAD and LCx -continue ASA, plavix and statin. NTG SL PRN -No beta adams given h/o allergy. -f/u in 1 week with Ms. Goins in [facility] for site check and labs. -f/u in with me in 6 weeks. Status: Acute (2) CAD (coronary artery disease): Status: Acute Qualifiers: Associated angina: with unspecified form of angina Coronary Disease-Associated Artery/Lesion type: [place] artery [place] vs. transplanted heart: [place] heart Qualified Code(s): I25.119 - Atherosclerotic heart disease of [place] coronary artery with unspecified angina pectoris (3) Hypertension: Status: Acute Qualifiers: Hypertension type: essential hypertension Qualified Code(s): I10 - Essential (primary) hypertension (4) Parkinson's disease: Status: Acute Additional A&P Information Autonomic neuropathy H/O Orthostatic hypotension Thank you for allowing me to participate in patient's care. Please feel free to call with questions or concerns. Attestations Medical Necessity Statement*: stable to be discharged. Time Spent in Patient Care: Greater than 35 minutes (>than 50% of time spent in counselling and/or direct pt care on unit). Coding Level of Care Code Acute [employer] I Assembler for g Fwd Diagnoses Non-ST elevation ND (NSTEMI) I21.4 CAD (coronary artery disease) I25.119 Associated angina: with unspecified form of angina Coronary Disease-Associated Artery/Lesion type: [place] artery [place] vs. transplanted heart: [place] heart Hypertension I10 Hypertension type: essential hypertension Parkinson's disease G20
--- NOTE | 2021-03-17 11:15 | PC.NURSE ---
Patient ambulated in hallway with no complications.
== END 2021-03-17 11:45 | disposition home or self-care (01) | DRG 246 ==
LOC: ER 05:42 → ICU 08:03 → CSU 17:48
PROVIDERS: Emergency Medicine; Internal Medicine Cardiovascular Disease; Admitting Provider Internal Medicine; Emergency Provider Family Medicine; PCP Family Medicine; Visit Provider Internal Medicine
PROC: 027137Z Dilation of Coronary Artery, Two Arteries with Four or More Drug-eluting Intraluminal Devices, Percutaneous Approach (ICD-10-PCS; principal; 2021-03-16 12:00)
PROC: 027137Z Dilation of Coronary Artery, Two Arteries with Four or More Drug-eluting Intraluminal Devices, Percutaneous Approach (ICD-10-PCS; 2021-03-16 12:00)
DX: I21.4 Non-ST elevation (NSTEMI) myocardial infarction (principal); M19.012 Primary osteoarthritis, left shoulder; G89.29 Other chronic pain; F02.80 Dementia in other diseases classified elsewhere, unspecified severity, without behavioral disturbance, psychotic disturbance, mood disturbance, and anxiety; G31.83 Neurocognitive disorder with Lewy bodies; N39.41 Urge incontinence; I25.2 Old myocardial infarction; Z85.46 Personal history of malignant neoplasm of prostate; Z98.1 Arthrodesis status; I95.1 Orthostatic hypotension; Z91.14 Patient's other noncompliance with medication regimen; I10 Essential (primary) hypertension; I25.110 Atherosclerotic heart disease of native coronary artery with unstable angina pectoris; G90.9 Disorder of the autonomic nervous system, unspecified
CPT/HCPCS: 36415; 71045; 80053; 82550; 83880; 84484; 85025; 85347; 85730; 93005; 93454; 99285; C1725; C1769; C1874; C1887; C1894; C9600; C9601; J0360; J1644; J2250; J3010; J3490; J7030; Q0163; Q9967

== ENCOUNTER → 2021-03-24 15:13 | Outpatient (BNVA) | payer OTHER, MEDICARE, SELFPAY | PROVIDERS: PCP Family Medicine; Visit Provider Nurse Practitioner Family | DX: I25.119 Atherosclerotic heart disease of native coronary artery with unspecified angina pectoris (principal) | CPT/HCPCS: 80048 ==

== ENCOUNTER → 2021-04-08 13:51 | Outpatient (BNVA) | payer OTHER, SELFPAY | PROVIDERS: PCP Family Medicine; Visit Provider Specialist | DX: G31.83 Neurocognitive disorder with Lewy bodies (principal); F02.80 Dementia in other diseases classified elsewhere, unspecified severity, without behavioral disturbance, psychotic disturbance, mood disturbance, and anxiety | CPT/HCPCS: 96116; 99214 ==

== ENCOUNTER 2021-05-21 10:17 | Outpatient (RCR) | payer OTHER, SELFPAY | END 2021-06-20 23:59 | disposition home or self-care (01) | LOC: CR 10:17 | PROVIDERS: PCP Family Medicine; Referring Provider Internal Medicine Cardiovascular Disease; Visit Provider Internal Medicine Cardiovascular Disease | DX: Z95.5 Presence of coronary angioplasty implant and graft (principal) | CPT/HCPCS: 93798 ==

== ENCOUNTER → 2021-06-18 10:34 | Outpatient (BNVA) | payer OTHER, SELFPAY | PROVIDERS: PCP Family Medicine; Visit Provider Specialist | DX: G31.83 Neurocognitive disorder with Lewy bodies (principal); F02.80 Dementia in other diseases classified elsewhere, unspecified severity, without behavioral disturbance, psychotic disturbance, mood disturbance, and anxiety | CPT/HCPCS: 99215 ==

== ENCOUNTER 2021-06-22 11:56 | Outpatient (RCR) | payer OTHER, SELFPAY | END 2021-07-21 23:59 | disposition home or self-care (01) | LOC: CR 11:56 | PROVIDERS: PCP Family Medicine; Referring Provider Internal Medicine Cardiovascular Disease; Visit Provider Internal Medicine Cardiovascular Disease | DX: Z95.5 Presence of coronary angioplasty implant and graft (principal) | CPT/HCPCS: 93798 ==

== ENCOUNTER 2021-07-07 08:04 | Outpatient (CLI) | payer OTHER, SELFPAY ==
--- NOTE | 2021-07-07 08:17 | USCV_ITS ---
Renny Matos Age: 81 Gender: M : 1940 Exam Date: 07/07/2021 08:29 Ordering Phys: Minnie Coello MD Technologist: Trinidad Arthur Exam Location: [facility] [place] Indication: PAIN IN LEGS Risk Factors: Unknown Previous Vascular Surgery: None RIGHT LEFT BP: 133.0 / 76.00 BP: 127.0/ 73.00 0 0 Waveform Velocity (cm/s) Velocity (cm/s) Waveform Triphasic 89.9 Iliac Prox 98.6 Triphasic Triphasic 114.2 Iliac Mid 69.0 Triphasic Triphasic 91.7 Iliac Distal 81.8 Triphasic Triphasic 78.8 DEAN OF ADMISSIONS 90.7 Triphasic Triphasic 82.0 SFA Prox 62.1 Triphasic Triphasic 70.0 SFA Mid 90.7 Triphasic Triphasic 74.9 SFA Dist 58.2 Triphasic Triphasic 61.1 POP 81.8 Triphasic Triphasic 57.2 STORAGE ADMINISTRATOR 63.1 Triphasic Triphasic 61.1 DPA 61.6 Triphasic DANDY 0.9 0.9 FINDINGS Mild diffuse plaque in the iliac and femoral arteries bilaterally Near normal resting ABIs bilaterally CONCLUSIONS No significant arterial obstruction, based on the above findings Dr Julia Silva MD [facility] (Electronically Signed) Final Date: 07 July 2021 18:18 S
== END 2021-07-07 08:05 | disposition home or self-care (01) ==
PROVIDERS: PCP Family Medicine; Visit Provider Family Medicine
DX: M79.604 Pain in right leg (principal); M79.605 Pain in left leg
CPT/HCPCS: 93925

== ENCOUNTER 2021-07-22 10:05 | Outpatient (RCR) | payer OTHER, SELFPAY | END 2021-08-20 23:59 | disposition home or self-care (01) | LOC: CR 10:05 | PROVIDERS: PCP Family Medicine; Referring Provider Internal Medicine Cardiovascular Disease; Visit Provider Internal Medicine Cardiovascular Disease | DX: Z95.5 Presence of coronary angioplasty implant and graft (principal) | CPT/HCPCS: 93798 ==

== ENCOUNTER → 2021-08-10 14:57 | Outpatient (BNVA) | payer OTHER, SELFPAY | PROVIDERS: PCP Family Medicine; Visit Provider Specialist | DX: G20 Parkinson's disease (principal); F02.80 Dementia in other diseases classified elsewhere, unspecified severity, without behavioral disturbance, psychotic disturbance, mood disturbance, and anxiety; I95.1 Orthostatic hypotension | CPT/HCPCS: 99213; 99214 ==

== ENCOUNTER 2021-08-21 08:36 | Outpatient (RCR) | payer OTHER, SELFPAY | END 2021-09-20 23:59 | disposition home or self-care (01) | LOC: CR 08:36 | PROVIDERS: PCP Family Medicine; Referring Provider Internal Medicine Cardiovascular Disease; Visit Provider Internal Medicine Cardiovascular Disease | DX: Z95.5 Presence of coronary angioplasty implant and graft (principal) | CPT/HCPCS: 93798 ==

== ENCOUNTER → 2021-11-03 09:22 | Outpatient (BNVA) | payer OTHER, SELFPAY | PROVIDERS: PCP Family Medicine; Visit Provider Specialist | DX: G20 Parkinson's disease (principal); R13.10 Dysphagia, unspecified; M51.17 Intervertebral disc disorders with radiculopathy, lumbosacral region; M48.062 Spinal stenosis, lumbar region with neurogenic claudication; S32.010S Wedge compression fracture of first lumbar vertebra, sequela; Y93.9 Activity, unspecified | CPT/HCPCS: 99214 ==

== ENCOUNTER 2021-12-04 12:29 | Outpatient (RCR) | payer OTHER, SELFPAY | END 2021-12-21 23:59 | disposition home or self-care (01) | LOC: SST 12:29 | PROVIDERS: PCP Family Medicine; Referring Provider Family Medicine; Visit Provider Family Medicine | DX: R13.10 Dysphagia, unspecified (principal) | CPT/HCPCS: 92507; 92523; 92610 ==

== ENCOUNTER 2021-12-22 06:00 | Outpatient (RCR) | payer OTHER, SELFPAY | END 2022-01-18 23:59 | disposition home or self-care (01) | LOC: SST 06:00 | PROVIDERS: PCP Family Medicine; Referring Provider Family Medicine; Visit Provider Family Medicine | DX: R13.10 Dysphagia, unspecified (principal) | CPT/HCPCS: 92507 ==

== ENCOUNTER 2022-01-19 06:00 | Outpatient (RCR) | payer OTHER, SELFPAY | END 2022-02-18 23:59 | disposition home or self-care (01) | LOC: SST 06:00 | PROVIDERS: PCP Family Medicine; Referring Provider Family Medicine; Visit Provider Family Medicine | DX: R13.10 Dysphagia, unspecified (principal) | CPT/HCPCS: 92507 ==

== ENCOUNTER 2022-01-25 06:00 | Outpatient (RCR) | payer OTHER, SELFPAY | END 2022-02-18 23:59 | disposition home or self-care (01) | LOC: SPT 06:00 | PROVIDERS: PCP Family Medicine; Referring Provider Family Medicine; Visit Provider Family Medicine | DX: G20 Parkinson's disease (principal) | CPT/HCPCS: 97110; 97112; 97162; 97530 ==

== ENCOUNTER → 2022-02-02 10:48 | Outpatient (BNVA) | payer OTHER, SELFPAY | PROVIDERS: PCP Family Medicine; Visit Provider Specialist | DX: G20 Parkinson's disease (principal); F02.80 Dementia in other diseases classified elsewhere, unspecified severity, without behavioral disturbance, psychotic disturbance, mood disturbance, and anxiety; G24.4 Idiopathic orofacial dystonia; R51.9 Headache, unspecified | CPT/HCPCS: 99214 ==

== ENCOUNTER → 2022-02-15 11:27 | Outpatient (BNVA) | payer OTHER, SELFPAY | PROVIDERS: PCP Family Medicine; Visit Provider Internal Medicine Cardiovascular Disease | DX: R07.9 Chest pain, unspecified (principal); I25.119 Atherosclerotic heart disease of native coronary artery with unspecified angina pectoris; I10 Essential (primary) hypertension | CPT/HCPCS: 99214 ==

== ENCOUNTER 2022-02-19 06:00 | Outpatient (RCR) | payer OTHER, SELFPAY | END 2022-03-20 23:59 | disposition home or self-care (01) | LOC: SST 06:00 | PROVIDERS: PCP Family Medicine; Referring Provider Family Medicine; Visit Provider Family Medicine | DX: R13.10 Dysphagia, unspecified (principal) | CPT/HCPCS: 92507 ==

== ENCOUNTER 2022-02-19 06:00 | Outpatient (RCR) | payer OTHER, SELFPAY | END 2022-02-25 23:59 | disposition home or self-care (01) | LOC: SPT 06:00 | PROVIDERS: PCP Family Medicine; Referring Provider Family Medicine; Visit Provider Family Medicine | DX: G20 Parkinson's disease (principal) | CPT/HCPCS: 97110; 97530 ==

== ENCOUNTER 2022-03-02 20:21 | Emergency (ER) | payer OTHER, MEDICARE, SELFPAY ==
[2022-03-02 20:33] VITALS: BP 149/95; PULSE 66; RESP 16; TEMP 37.1; O2SAT 95; BMI 25.8
--- NOTE | 2022-03-02 20:50 | W.ED.EYEPROB ---
HPI - Eye Problem General: Chief complaint: Eye Problems Stated complaint: R eye problems Time Seen by Provider: 03/02/22 20:41 History of Present Illness: Patient states he was putting wetting drops in his right last night and he touched the dropper to his right eye and he felt some discomfort and he said he has had redness all day with tearing. No matting. Denies any other problems. Associated symptoms: Denies fever(s), headache(s), nausea or vomiting Review of Systems Narrative: Touched right eye with dropper from an eye wetting bottle . Patient denies pain in the eye patient also denies headache or other related problems. 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 Tamia Folye. Bilateral L3-L4 hemilaminotomy/foraminotomy, with limited discectomy. Bilateral L2-L3 laminotomy/foraminotomy. Family History Grandmother CAD (coronary artery disease) Cancer Myocardial infarct Family/Other Hypertension Mother , at age 95 No problems noted. Father , at age 39 Blood clot associated with vein wall inflammation Social History Smoking and tobacco status: never smoked Alcohol intake: never Household members: family and children Marital status: / Current occupational status: retired History of recent travel: No Physical Exam Const: COMMON NORMALS: no acute distress Eye: COMMON NORMALS: Equal, round and reactive pupils present CONJUNCTIVA: Yes conjunctival abnormal positive right conjunctival injection localized SCLERA: sclerae normal CORNEA: Yes corneas normal PUPIL: Yes Equal, round and reactive pupils present Resp: COMMON NORMALS: normal respiratory effort Course Vital Signs: Vital signs: Vital Signs Temperature 98.8 F 03/02/22 20:33 Pulse Rate 66 03/02/22 20:33 Respiratory Rate 16 03/02/22 20:33 Blood Pressure 149/95 03/02/22 20:33 Pulse Oximetry 95 03/02/22 20:33 MDM - Eye Problem Medical Decision Making Right eye irritation Discharge Plan Discharge Patient Disposition: Home Clinical Impression: Redness of right eye Condition: Stable Prescriptions: New neomycin-polymyxin B-dexameth 3.5mg/mL-10,000 unit/mL-0.1 % drops,suspension 2 drp ophthalmic (eye) Q8H 3 Days Qty: 5 0RF No Action Stool Softener 50 mg capsule 50 mg PO DAILY PRN0RF oxybutynin chloride 5 mg tablet 5 mg PO BID 0RF galantamine 4 mg tablet 4 mg PO BID 0RF Rx Instructions: administer with AM and PM meals THC Sativa Gummies 105 mcg PO 0RF carboxymethylcellulose sodium 1 % drops, liquid gel 1 drp ophthalmic (eye) BID@11,21 0RF coenzyme Q10 [Co Q-10] 200 mg capsule 200 mg PO DAILY 0RF carbidopa-levodopa 25-100 mg tablet 2 tab PO BID Qty: 360 1RF tumeric 500 mg PO DAILY 0RF nitroglycerin 0.4 mg tablet, sublingual 0.4 mg sublingual Q5M PRN (Reason: chest pain) Qty: 25 3RF Rx Instructions: do not exceed 3 doses per episode isosorbide mononitrate 30 mg tablet extended release 24 hr 15 mg PO BID Qty: 90 3RF pantoprazole 40 mg tablet,delayed release (DR/EC) 40 mg PO DAILY Qty: 30 1RF cholecalciferol (vitamin D3) [Vitamin D3] 25 mcg (1,000 unit) Tablet 75 mcg PO DAILY@11 0RF citalopram 20 mg tablet 20 mg PO BEDTIME@2100 0RF clopidogrel 75 mg Tablet 75 mg PO DAILY Qty: 30 11RF aspirin 81 mg tablet,delayed release (DR/EC) 81 mg PO DAILY Qty: 30 0RF polyethylene glycol 3350 [Miralax] 17 gram powder in packet 17 g PO DAILY PRN (Reason: Constipation) 0RF Tylenol Extra Strength 500 mg tablet 1,000 mg PO BID PRN (Reason: pain) 0RF Lidocaine Viscous 2 % solution See Rx Instructions .ROUTE .COMPLEX PRN0RF Rx Instructions: use as directed for abd pain PRN; Discharge Orders: Discharge ED (Routine); Ordered 03/02/22 Ordered By: Luke Valero Referrals: Minnie Coello MD [Primary Care Provider] - Discharge Diet: Usual diet Discharge Activity: Resume usual activity Activity Restrictions/Additional Instructions: Follow-up with medical provider as directed. Take medications as prescribed. Return to the ER or your medical provider if condition worsens. Please read and understand discharge instructions. If any questions ask please. Coding Level of Care Code ED Ic Designer Custom for Krystyna Antony
[2022-03-02 20:53] VITALS: BP 149/95; PULSE 66; RESP 16; TEMP 37.1; O2SAT 95
[2022-03-02 21:11] VITALS: BP 137/80; PULSE 68; RESP 16; TEMP 37.1; O2SAT 96
[2022-03-02] MEDS: neomycin-poly-dex Op 5 mL Btl 2 DROP EYE-RIGHT (21:11)
== END 2022-03-02 21:12 | disposition home or self-care (01) ==
PROVIDERS: Emergency Provider Nurse Practitioner Family; PCP Family Medicine
DX: H53.141 Visual discomfort, right eye (principal)
CPT/HCPCS: 99282

== ENCOUNTER 2022-03-18 10:21 | Outpatient (CLI) | payer OTHER, MEDICARE, SELFPAY ==
--- NOTE | 2022-03-18 11:45 | FL_ITS ---
WS: [id number] MODIFIED BARIUM SWALLOW TECHNIQUE: Modified barium swallow with speech therapy using multiple consistencies. FLUOROSCOPY TIME: 3min [id number] # of spot films: 2 CLINICAL INFORMATION: R13.10 - Dysphagia, unspecified COMPARISON: None. FINDINGS: Multiple consistencies utilized. Delayed oropharyngeal phase. Penetration with thin liquids. No diffi culties with the barium tablet. Moderate esophageal dysmotility with delayed emptying and air-fluid l evel in the distal esophagus. Tertiary contractions are visualized with pulsion diverticuli in the di stal esophagus. Mild pooling in the vallecula which clears with additional fluid. FL/FL barium swallow modifd [id number] IMPRESSION: 1. Penetration with thin liquids. No hien aspiration. 2. Moderate esophageal dysmotility with delayed emptying and tertiary contract ions.
== END 2022-03-18 10:22 | disposition home or self-care (01) ==
LOC: RAD 10:22
PROVIDERS: PCP Family Medicine; Visit Provider Specialist
DX: R13.10 Dysphagia, unspecified (principal)
CPT/HCPCS: 74230; 92611

== ENCOUNTER 2022-03-21 06:00 | Outpatient (RCR) | payer OTHER, SELFPAY | END 2022-04-02 17:20 | disposition home or self-care (01) | LOC: SST 06:00 | PROVIDERS: PCP Family Medicine; Referring Provider Family Medicine; Visit Provider Family Medicine | DX: R13.10 Dysphagia, unspecified (principal) | CPT/HCPCS: 92507 ==

== ENCOUNTER 2022-05-11 06:00 | Outpatient (RCR) | payer OTHER, SELFPAY | END 2022-05-20 23:59 | disposition home or self-care (01) | LOC: SPT 06:00 | PROVIDERS: PCP Family Medicine; Referring Provider Family Medicine; Visit Provider Family Medicine | DX: M54.50 Low back pain, unspecified (principal) | CPT/HCPCS: 97161 ==

== ENCOUNTER 2022-05-21 06:00 | Outpatient (RCR) | payer OTHER, SELFPAY | END 2022-06-20 23:55 | disposition home or self-care (01) | LOC: SPT 06:00 | PROVIDERS: PCP Family Medicine; Referring Provider Family Medicine; Visit Provider Family Medicine | DX: M54.50 Low back pain, unspecified (principal) | CPT/HCPCS: 97113 ==

== ENCOUNTER → 2022-06-17 13:46 | Outpatient (BNVA) | payer OTHER, SELFPAY | PROVIDERS: PCP Family Medicine; Visit Provider Internal Medicine Cardiovascular Disease | DX: R07.9 Chest pain, unspecified (principal); I25.119 Atherosclerotic heart disease of native coronary artery with unspecified angina pectoris; I10 Essential (primary) hypertension; I49.3 Ventricular premature depolarization; R94.31 Abnormal electrocardiogram [ECG] [EKG]; I45.10 Unspecified right bundle-branch block | CPT/HCPCS: 93005; 99214 ==

== ENCOUNTER 2022-06-21 06:00 | Outpatient (RCR) | payer OTHER, SELFPAY | END 2022-07-21 23:59 | disposition home or self-care (01) | LOC: SPT 06:00 | PROVIDERS: PCP Family Medicine; Referring Provider Family Medicine; Visit Provider Family Medicine | DX: M54.50 Low back pain, unspecified (principal) | CPT/HCPCS: 97113 ==

== ENCOUNTER → 2022-06-21 11:45 | Outpatient (BNVA) | payer OTHER, SELFPAY | PROVIDERS: PCP Family Medicine; Visit Provider Specialist | DX: F02.80 Dementia in other diseases classified elsewhere, unspecified severity, without behavioral disturbance, psychotic disturbance, mood disturbance, and anxiety (principal); G20 Parkinson's disease | CPT/HCPCS: 99213; 99214 ==

== ENCOUNTER 2022-06-29 17:19 | Observation (INO) | payer OTHER, MEDICARE, SELFPAY ==
--- NOTE | 2022-06-29 17:30 | XRR_ITS ---
PROCEDURE INFORMATION: Exam: XR Chest Exam date and time: 06/29/2022 6:40 PM Age: 82 years old Clinical indication: Shortness of breath; Additional info: Low o2 sats TECHNIQUE: Imaging protocol: Radiologic exam of the chest. Views: 1 view. COMPARISON: CR XR chest 1V portable [id number] 03/16/2021 6:16 AM FINDINGS: Lungs: Bilateral hilar to lower lobe atelectasis versus minimal infiltrate. Pleural spaces: Unremarkable. No pleural effusion. No pneumothorax. Heart/Mediastinum: Unremarkable. No cardiomegaly. Bones/joints: Unremarkable. XR/XR chest 1V portable [id number] IMPRESSION: Bilateral hilar to lower lobe atelectasis versus minimal infiltrate.
--- NOTE | 2022-06-29 17:30 | ECG_ITS ---
[facility] Test Date: 2022-06-29 Pat Name: Renny Matos Department: Room: Gender: Male Legislative Correspondent: : 1940 Requested By: Quentin Whitmore Order Number: [id number] Edna MD: Maikel Osei M.D. Measurements Intervals [place] Rate: 69 P: 58 MD: 187 QRS: -34 QRSD: 138 T: 38 QT: 432 QTc: 466 Interpretive Statements SINUS RHYTHM LEFT AXIS DEVIATION [QRS AXIS < -30] RIGHT BUNDLE BRANCH BLOCK [120+ ms QRS DURATION, UPRIGHT V1, 40+ ms S IN I/aVL/V4/V5/V6] POSSIBLE SEPTAL MYOCARDIAL INFARCTION , OF INDETERMINATE AGE [30 ms Q WAVE IN V1/V2] Compared to ECG 03/16/2021 11:20:54 Myocardial infarct finding now present Electronically Signed On 06-29-2022 18:54:57 CDT by Maikel Osei M.D. [id number]
[2022-06-29 17:38] VITALS: BP 132/71; PULSE 76; RESP 18; TEMP 36.9; O2SAT 97; BMI 25.4
--- NOTE | 2022-06-29 18:43 | W.ED.NEUROSD ---
HPI - Neuro Symptoms/Deficit General: Chief Complaint: ER Hold Stated Complaint: low ox, hallucinating Time Seen by Provider: 06/29/22 18:43 History of Present Illness: Mr. Sosa is an 82-year-old gentleman with significant past medical history of Parkinson's who presents to the emergency department due to mental status change. He was initiated on ropinirole approximately 9 days ago and shortly thereafter family began noticing visual hallucinations. Initially he was redirectable however today they noticed that he was not. Specifically today he was mentioning bugs but the hallucinations were more complex involving other people attempting to stop on the bugs as well. On the way here he was trying to turn off the car and climb out even though the car was in motion. He offers somewhat limited insight. He does endorse increasing history of frontal throbbing headaches which are worse in the mornings. Otherwise denies changes in health. Intensity symptoms is moderate. Course is worsened. No other specific changes in health, exacerbating, or alleviating factors identified. Onset (ago): day(s) Timing confirmed by: family member History of same: No Severity: moderate Context: change in medication On Anticoagulants: No Associated symptoms: Reports headache(s) Review of Systems General: Reports: 10 or more systems reviewed and unremarkable except in HPI and below Neuro: Reports: headache(s) PFSH ED PFSH: Medical History (Updated 07/08/22 @ 15:15 by Michael Tinajero MD) Arthritis of left acromioclavicular joint CAD (coronary artery disease) Chronic constipation Chronic pain Dementia Hypertensive emergency Lewy body dementia Lower urinary tract symptoms (LUTS) Non-ST elevation [place] (NSTEMI) 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 Tamia Foley. Bilateral L3-L4 hemilaminotomy/foraminotomy, with limited discectomy. Bilateral L2-L3 laminotomy/foraminotomy. Family History Grandmother CAD (coronary artery disease) Cancer Myocardial infarct Family/Other Hypertension Mother , at age 95 No problems noted. Father , at age 39 Blood clot associated with vein wall inflammation Social History Smoking and tobacco status: never smoked Alcohol intake: never Household members: family and children Marital status: / Current occupational status: retired History of recent travel: No Physical Exam Const: COMMON NORMALS: alert GENERAL APPEARANCE: cooperative and well developed HENMT: COMMON NORMALS: normocephalic and atraumatic HEAD & SCALP: normocephalic and atraumatic Eye: COMMON NORMALS: conjunctivae normal CONJUNCTIVA: Yes conjunctivae normal SCLERA: sclerae normal Neck/C-Spine: COMMON NORMALS: supple GENERAL: Yes trachea midline Resp: COMMON NORMALS: normal respiratory effort EFFORT & INSPECTION: Yes able to speak in complete sentences Cardio: COMMON NORMALS: regular rate and regular rhythm RATE: regular rate RHYTHM: regular rhythm GI: COMMON NORMALS: Soft to palpation PALPATION: Yes Soft to palpation and No Tenderness to palpation present (GI) Extremity: GENERAL: Yes normal exam except as noted and No edema Neuro: COMMON NORMALS: CN's II-XII intact bilaterally, moves all extremities, no focal motor deficits and no sensory deficits noted SENSORIUM/ORIENTATION: Yes alert and No Orientation impaired Psych: COMMON NORMALS: mental status grossly normal THOUGHT CONTENT: Yes Hallucination(s) present MEMORY/COGNITION: Yes memory grossly impaired INSIGHT: Fair insight present (Psych) Course ED course: - Patient was seen and evaluated by me at bedside - Patient placed on cardiac monitors, IV access obtained - Initial evaluation notable for exam as above, overall waxing and waning mental status throughout ED evaluation though nonfocal exam - Labs and xrays personally interpreted by me. EKG shows sinus bradycardia with nonspecific ST segment abnormalities. No STEMI. -Fluids given - Labs notable for no leukocytosis, normal hemoglobin. Metabolic panel fairly similar to prior, no clear derangement to explain symptoms. No evidence of UTI. - Imaging notable for bibasilar atelectasis, no lobar consolidation or pneumothorax. No acute pathology identified on head CT - Upon serial reexamination after treatment the patient was waxing and waning - Based on patient history, evaluation, and testing as interpreted the most likely cause of the patient's condition is medication related delirium - The results of ED evaluation were discussed with the patient including plan for admission due to requirement for level of care not available if discharged to prevent significant worsening/deterioration. - Admitting service was contacted and Dr Hurtado with the hospitalist service agreed to admit the patient - Patient was admitted without further deterioration or significant events. Note: Click bubbles or prepopulated bailey in note writing are used for assistance with data collection and billing and are inherently more limited than narrative and other text portions of this note. Please use narrative for additional clinical history and defer to narrative/free test for any case of contradictory information. If information appears in only free text or click bubble it should be considered present or absent as reported. Please contact note proposal manager writer for clarifications of clinical information or contradictory information. MDM is a brief summary, contradictory or erroneous seeming information should be clarified and full note should be reviewed. Vital Signs: Vital signs: Vital Signs Temperature 97.9 F 07/02/22 08:00 Pulse Rate 58 L 07/02/22 16:59 Respiratory Rate 18 07/02/22 16:59 Blood Pressure 178/81 07/02/22 16:59 Pulse Oximetry 95 07/02/22 16:59 Oxygen Delivery Me thod 07/02/22 12:00 MDM - Neuro Symptoms/Deficit Medical Decision Making 82-year-old male with history of dementia presenting with mental status change in the context of recent medication changes. ED evaluation largely without clear explanation. Most likely etiology is medication induced delirium. Admitted for further management given severity of symptoms including potentially dangerous actions. Medical Records I reviewed the patient's medical records. Lab Data I reviewed the patient's lab results. : 07/02/22 04:40 07/02/22 04:40 Radiology Impressions Chest X-Ray 06/29/22 17:30 IMPRESSION: Bilateral hilar to lower lobe atelectasis versus minimal infiltrate. Head CT 06/29/22 18:59 IMPRESSION: Negative for intracranial hemorrhage or mass effect Laboratory Results WBC 7.8 10^3/uL (4.0-10.0) 06/29/22 18:55 RBC 4.61 10^6/uL (4.1-5.3) 06/29/22 18:55 Hgb 14.6 g/dL (11.7-16.6) 06/29/22 18:55 Hct 44.3 % (42.0-52.0) 06/29/22 18:55 MCV 96.1 fl (80-94) H 06/29/22 18:55 MCH 31.7 pg (28.0-34.0) 06/29/22 18:55 MCHC 33.0 g/dL (30.0-36.0) 06/29/22 18: RDW 13.0 % (12.1-15.1) 06/29/22 18:55 Plt Count 167 10^3/cmm (130-400) 06/29/22 18:55 MPV 10.5 fL (7.4-10.4) H 06/29/22 18:55 Neut % (Auto) 68.1 % 06/29/22 18: Lymph % (Auto) 20.7 % 06/29/22 18: [place] % (Auto) 8.4 % 06/29/22 18: Eos % (Auto) 2.1 % 06/29/22 18:55 Baso % (Auto) 0.4 % 06/29/22 18:55 Neut # (Auto) 5.31 10^3/uL (1.8-7.7) 06/29/22 18: Lymph # (Auto) 1.6 10^3/uL (0.8-4.8) 06/29/22 18:55 [place] # (Auto) 0.7 10^3/uL (0.2-0.9) 06/29/22 18: Eos # (Auto) 0.2 10^3/uL (0.0-0.8) 06/29/22 18:55 Baso # (Auto) 0.0 10^3/uL (0.0-0.1) 06/29/22 18: Nucleated RBC % (auto) 0 % 06/29/22 18: Nucleated RBCs # 0.0 /100WBC 06/29/22 18:55 Sodium 135 mmol/L (136-145) L 06/29/22 18:55 Potassium 4.0 mmol/L (3.5-5.1) 06/29/22 18: Chloride 105 mmol/L (98-107) 06/29/22 18:55 Carbon Dioxide 19 mmol/L (22-29) L 06/29/22 18:55 Anion Gap 15.0 (5-19) 06/29/22 18:55 BUN 19 mg/dL (8-23) 06/29/22 18:55 Creatinine 0.7 mg/dL (0.7-1.2) 06/29/22 18:55 GFR Calculation Not Reportable 06/29/22 18:55 Glucose 87 mg/dL (65-115) 06/29/22 18:55 Calculated Osmolality 282 mOsm/kg (285-295) L 06/29/22 18:55 Calcium 7.8 mg/dL (8.5-10.5) L 06/29/22 18:55 Total Bilirubin 0.2 mg/dL (0.15-1.2) 06/29/22 18:55 AST 15 U/L (0-40) 06/29/22 18:55 ALT < 5 U/L (0-41) 06/29/22 18:55 Alkaline Phosphatase 83 IU/L (40-130) 06/29/22 18:55 Troponin T Baseline 14 ng/L (0-15) 06/29/22 18:55 Troponin T 120 Minute 18.05 ng/L (0-15) H 06/29/22 21:00 Delta Troponin T 4.05 ABS# (0-10) 06/29/22 21:00 C-Reactive Protein 3.0 mg/L (0.0-4.9) 06/29/22 18:55 NT-Pro-B Natriuret Pep 586 pg/mL (0-450) H 06/29/22 18:55 Total Protein 6.3 g/dL (6.6-8.7) L 06/29/22 18:55 Albumin 3.7 g/dL (3.5-5.2) 06/29/22 18:55 Globulin 2.6 g/dL (1.3-4.6) 06/29/22 18:55 TSH 1.52 uIU/mL (0.27-4.20) 06/29/22 18:55 Urine Color Yellow (Yellow) 06/29/22 21:19 Urine Appearance Clear (CLEAR) 06/29/22 21:19 Urine pH 5 (5-7) 06/29/22 21:19 Ur Specific [place] 1.020 (1.005-1.030) 06/29/22 21:19 Urine Protein Neg (Negative) 06/29/22 21:19 Urine Glucose (UA) Norm (Normal) 06/29/22 21:19 Urine Ketones Negative (Negative) 06/29/22 21:19 Urine Blood Neg (Negative) 06/29/22 21:19 Urine Nitrate Negative (Negative) 06/29/22 21:19 Urine Bilirubin Neg (Negative) 06/29/22 21:19 Urine Urobilinogen Norm mg/dL (Negative) 06/29/22 21:19 Ur Leukocyte Esterase Negative (Negative) 06/29/22 21:19 Coronavirus 229E (PCR) Not detected (NOT DETECT) 06/29/22 19:05 SARS-CoV-2 (PCR) Not detected (NOT DETECT) 06/29/22 19:05 Discharge Plan Discharge Patient Disposition: Placed in Observation Admit Provider: Luis Hurtado Clinical Impression: Delirium, drug-induced Discharge Diet: Usual diet Discharge Activity: Resume usual activity Coding Level of Care Code ED Pattern Setter for Tommieg Fwd Exam Comprehensive
--- NOTE | 2022-06-29 18:59 | CTR_ITS ---
PROCEDURE INFORMATION: Exam: CT Head Without Contrast Exam date and time: 06/29/2022 7:41 PM Age: 82 years old Clinical indication: Altered mental status/memory loss and other: Patient is seeing things that are not there; Additional info: Hallucinations TECHNIQUE: Imaging protocol: Computed tomography of the head without contrast. Radiation optimization: All CT scans at this facility use at least one of these dose optimization techniques: automated exposure control; mA and/or kV adjustment per patient size (includes targeted exams where dose is matched to clinical indication); or iterative reconstruction. COMPARISON: CT head wo con* [id number] 02/14/2020 1:52 PM RADIATION DOSE METRICS: Total DLP (mGy-cm): 1004.68 FINDINGS: Brain: Mild diffuse white matter disease likely reflecting chronic microvascular ischemic changes. Cerebral ventricles: No ventriculomegaly. Paranasal sinuses: Visualized sinuses are unremarkable. No fluid levels. Mastoid air cells: Visualized mastoid air cells are well aerated. Bones/joints: Unremarkable. No acute fracture. Soft tissues: Unremarkable. CT/CT head wo con* [id number] IMPRESSION: Negative for intracranial hemorrhage or mass effect
[2022-06-29 19:01] LABS: Basophils % 0.4 %; Eosinophils # 0.2 10^3/uL (0.0-0.8); Eosinophils % 2.1 %; Hematocrit 44.3 % (42.0-52.0); Hemoglobin 14.6 g/dL (11.7-16.6); Lymphocytes # 1.6 10^3/uL (0.8-4.8); Lymphocytes % 20.7 %; Mean Corpuscular Hemoglobin 31.7 pg (28.0-34.0); Mean Corpuscular Volume 96.1 fl (80-94); Mean Platelet Volume 10.5 fL (7.4-10.4); Monocytes # 0.7 10^3/uL (0.2-0.9); Monocytes % 8.4 %; Neutrophils # 5.31 10^3/uL (1.8-7.7); Neutrophils % 68.1 %; Nucleated Red Blood Cells % 0 %; Platelet Count 167 10^3/cmm (130-400); Red Blood Count 4.61 10^6/uL (4.1-5.3); White Blood Count 7.8 10^3/uL (4.0-10.0)
[2022-06-29 19:26] LABS: Troponin(5th) Baseline 14 ng/L (0-15)
--- NOTE | 2022-06-29 19:33 | ECG_ITS ---
[facility] Test Date: 2022-06-29 Pat Name: Renny Matos Department: Room: Gender: Male Plate Straightener: : 1940 Requested By: Quentin Whitmore Order Number: [id number] Edna MD: Maikel Osei M.D. Measurements Intervals [place] Rate: 57 P: 82 AK: 192 QRS: -16 QRSD: 122 T: 30 QT: 449 QTc: 437 Interpretive Statements SINUS BRADYCARDIA RIGHT BUNDLE BRANCH BLOCK [120+ ms QRS DURATION, UPRIGHT V1, 40+ ms S IN I/aVL/V4/V5/V6] Compared to ECG 06/29/2022 18:50:21 Sinus rhythm no longer present Left-axis deviation no longer present Myocardial infarct finding no longer present Electronically Signed On 06-29-2022 23:35:03 CDT by Maikel Osei M.D. [id number]
[2022-06-29 19:34] LABS: Alanine Aminotransferase < 5 U/L (0-41); Albumin Level 3.7 g/dL (3.5-5.2); Alkaline Phosphatase 83 IU/L (40-130); Blood Urea Nitrogen 19 mg/dL (8-23); Calcium 7.8 mg/dL (8.5-10.5); Carbon Dioxide 19 mmol/L (22-29); Chloride 105 mmol/L (98-107); Globulin 2.6 g/dL (1.3-4.6); Glucose 87 mg/dL (65-115); NT Pro B Type Natriuretic Pept 586 pg/mL (0-450); Osmolality Calculated 282 mOsm/kg (285-295); Sodium 135 mmol/L (136-145); Total Bilirubin 0.2 mg/dL (0.15-1.2); Total Protein 6.3 g/dL (6.6-8.7)
[2022-06-29 19:36] LABS: Aspartate Amino Transferase 15 U/L (0-40)
[2022-06-29 20:00] VITALS: BP 156/83; PULSE 59; O2SAT 97
[2022-06-29 20:30] VITALS: BP 142/80; PULSE 52; O2SAT 97
[2022-06-29 20:41] LABS: Thyroid Stimulating Hormone 1.52 uIU/mL (0.27-4.20)
[2022-06-29] MEDS: famotidine 20 mg Tablet 40 MG PO (20:55)
[2022-06-29] MEDS: sodium chloride 0.9% 1,000 ML 999 ML IV (20:57)
[2022-06-29 21:00] VITALS: BP 170/90; PULSE 60; O2SAT 97
[2022-06-29 21:01] LABS: Adenovirus Not Detected (NOT DETECT); Chlamydia Pneumoniae Not Detected (NOT DETECT); Coronavirus 229E,HKU1,NL63,OC4 Not Detected (NOT DETECT); Human Metapneumovirus Not Detected (NOT DETECT); Human Rhinovirus/Enterovirus Not Detected (NOT DETECT); Influenza A Not Detected (NOT DETECT); Influenza A H1 Not Detected (NOT DETECT); Influenza A H1-2009 Not Detected (NOT DETECT); Influenza A H3 Not Detected (NOT DETECT); Influenza B Not Detected (NOT DETECT); Mycoplasma Pneumoniae Not Detected (NOT DETECT); Parainfluenza Virus Type 1 Not Detected (NOT DETECT); Parainfluenza Virus Type 2 Not Detected (NOT DETECT); Parainfluenza Virus Type 3 Not Detected (NOT DETECT); Parainfluenza Virus Type 4 Not Detected (NOT DETECT); Respiratory Syncytial Virus A Not Detected (NOT DETECT); Respiratory Syncytial Virus B Not Detected (NOT DETECT); SARS-COV-2 Not Detected (NOT DETECT)
[2022-06-29 21:28] LABS: Add Urine Microscopic? NO; Charge for UA Resulting for Rev
[2022-06-29 21:41] LABS: Bilirubin Urine Neg (Negative); Blood Urine Neg (Negative); Glucose Urine UA Norm (Normal); Ketones Urine Negative (Negative); Leukocyte Esterase Urine Negative (Negative); Nitrate Urine Negative (Negative); Protein Urine Neg (Negative); Urine Appearance Clear (CLEAR); Urine Color Yellow (Yellow); Urobilinogen Urine Norm (Negative); pH Urine 5 (5-7)
[2022-06-29 22:23] LABS: Troponin 5 2HR 18.05 ng/L (0-15)
[2022-06-29 22:24] LABS: Troponin 5 2HR Delta 4.05 ABS# (0-10)
--- NOTE | 2022-06-29 22:45 | P.HP_ITS ---
Providers/Chief Complaint Primary Care Provider: Minnie Coello MD Chief Complaint: low ox, hallucinating History of Present Illness Renny Matos is a 82 year old male with a past medical history of Lewy body dementia on Sinemet and galantamine, Parkinson's disease, Shy-Drager syndrome, hypertension, NSTEMI, on aspirin Plavix Ranexa, Imdur, who recently diagnosed with restless leg syndrome, was placed on ropinirole, and was placed on ropinirole, for his chest pain was recently placed on Ranexa, presents to [facility] for increased confusion. According to family members at bedside he has been hallucinating, seeing things are not there, he admits that he has been seeing bugs on the [place], seeing pieces are not there, currently he is alert to person, to place, not to time, he is quite forgetful, does have underlying dementia. According to family was in the last 2 weeks since ropinirole has been started, he has had a significant decline, has been more confused, he has had falls, he has hit his head is CT head and emergency room had no acute findings. No fevers, chills, no cough. No dysuria, no hematuria. No back pain. He was complaining of pain in his head. Review of Systems Const: Denies: fever(s), chills or body aches Eyes: Denies: change in vision Card: Denies: lightheadedness or syncope Resp: Denies: dyspnea GI: Denies: abdominal pain : Denies: flank pain, difficulty urinating or dysuria Musc: Denies: neck pain or back pain Neuro: Reports: headache(s) and confusion; Denies: numbness in extremities, weakness in extremities, dizziness, Slurred speech present or seizure-like activity Medications/Allergies Home Medications Medication Instructions Recorded Confirmed Last Taken Type polyethylene glycol 3350 17 gram 17 g PO DAILY PRN Constipation 02/14/20 06/21/22 Unknown History oral powder packet (Miralax) acetaminophen 500 mg tablet 1,000 mg PO BID PRN pain 08/12/20 06/21/22 Unknown History (Tylenol Extra Strength) carboxymethylcellulose sodium 1 % 1 drp ophthalmic (eye) BID@01/14/21 06/21/22 03/06/21 20:00 History eye liquid gel drops cholecalciferol (vitamin D3) 25 75 mcg PO DAILY@11 03/07/21 06/21/22 03/07/21 08:00 History mcg (1,000 unit) tablet (Vitamin D3) citalopram 20 mg tablet 20 mg PO BEDTIME@2100 03/07/21 06/21/22 03/06/21 21:00 History aspirin 81 mg tablet,delayed 81 mg PO DAILY #30 tabs 03/17/21 06/21/22 Unknown Rx release clopidogrel 75 mg tablet 75 mg PO DAILY #30 tabs 03/17/21 06/21/22 Unknown Rx coenzyme Q10 200 mg capsule (Co 200 mg PO DAILY 03/24/21 06/21/22 Unknown History Q-10) oxybutynin chloride 5 mg tablet 5 mg PO BID 06/18/21 06/21/22 Unknown History THC Sativa Gummies PO Leg pain 12/16/21 06/21/22 Unknown History galantamine 4 mg tablet 4 mg PO BID 12/16/21 06/21/22 Unknown History pantoprazole 40 mg tablet,delayed 40 mg PO DAILY #30 tabs 01/04/22 06/21/22 Unknown Rx release docusate sodium 50 mg capsule 50 mg PO DAILY PRN 02/15/22 06/21/22 Unknown History (Stool Softener) lidocaine HCl 2 % mucosal solution See Rx Instructions .Route 02/15/22 06/21/22 Unknown History (Lidocaine Viscous) .COMPLEX PRN nitroglycerin 0.4 mg sublingual 0.4 mg sublingual Q5M PRN chest 02/15/22 06/21/22 Unknown Rx tablet pain #25 tabs tumeric 500 mg PO DAILY 02/15/22 06/21/22 Unknown History isosorbide mononitrate 30 mg 15 mg PO DAILY #45 tabs 06/17/22 06/21/22 Unknown Rx tablet,extended release 24 hr ranolazine 500 mg tablet,extended 500 mg PO DAILY #30 tabs 06/17/22 06/21/22 Unknown Rx release,12 hr (Ranexa) carbidopa 25 mg-levodopa 100 mg 2 tab PO BID #360 tabs 06/21/22 06/21/22 Unknown Rx tablet quetiapine 25 mg tablet (Seroquel) 25 mg PO DAILY #30 tabs 06/29/22 Unknown Rx Allergies Allergy/AdvReac Type Severity Reaction Status Date / Time hydrocodone Allergy HALLUCINATI Verified 06/21/22 11:47 ONS zonisamide [From Zonegran] Allergy HIVES Verified 06/21/22 11:47 metoprolol AdvReac BRADYCARDIA Verified 06/21/22 11:47 Penicillins AdvReac UNKNOWN Verified 06/21/22 11:47 pravastatin AdvReac MUSCLE PAIN Verified 06/21/22 11:47 PFSH Acute PFSH: Medical History Arthritis of left acromioclavicular joint Chronic pain Hypertensive emergency Lewy body dementia Lower urinary tract symptoms (LUTS) Non-ST elevation MD (NSTEMI) 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 Tamia Foley. Bilateral L3-L4 hemilaminotomy/foraminotomy, with limited discectomy. Bilateral L2-L3 laminotomy/foraminotomy. Family History Grandmother CAD (coronary artery disease) Cancer Myocardial infarct Family/Other Hypertension Mother , at age 95 No problems noted. Father , at age 39 Blood clot associated with vein wall inflammation Social History Smoking and tobacco status: never smoked Alcohol intake: never Household members: family and children Marital status: / Current occupational status: retired History of recent travel: No Vitals/I&O/Wt Last Vital Signs Temp 98.4 F 06/29/22 17:38 Pulse 60 06/29/22 21:00 Resp 18 06/29/22 17:38 BP 170/90 06/29/22 21:00 Pulse Ox 97 06/29/22 21:00 O2 Del Method 06/29/22 21:00 Weight last 48 hrs Weight 71.668 kg Physical Exam Const: COMMON NORMALS: no acute distress EXAM LIMITATIONS: altered mental status ORIENTATION/CONSCIOUSNESS: Yes awake, Yes oriented to person, Yes oriented to place and Yes confused; not oriented to time HENMT: COMMON NORMALS: normocephalic HEAD & SCALP: normocephalic Eye: COMMON NORMALS: Equal, round and reactive pupils present and EOMs intact bilaterally Neck/C-Spine: COMMON NORMALS: no JVD Resp: COMMON NORMALS: normal respiratory effort, No retractions, No use of accessory muscles and clear to auscultation bilaterally AUSCULTATION: clear to auscultation bilaterally Cardio: COMMON NORMALS: no JVD, regular rate, regular rhythm, S1 normal heart sound present and S2 normal heart sound present RATE: regular rate RHYTHM: regular rhythm HEART SOUNDS: S1 normal heart sound present and S2 normal heart sound present GI: COMMON NORMALS: Normal to inspection, nondistended, normoactive bowel sounds present, Soft to palpation, non-tender, No hepatosplenomegaly present, no masses and no bruits PALPATION: Yes Soft to palpation and Yes No hepatosplenomegaly present Extremity: COMMON NORMALS: capillary refill normal, no clubbing, cyanosis or edema, no calf tenderness and no pedal edema Neuro: COMMON NORMALS: patient oriented x3, CN's II-XII intact bilaterally, moves all extremities and no focal motor deficits Psych: COMMON NORMALS: mental status grossly normal Data : 06/29/22 18:55 06/29/22 18:55 A&P Assessment and plan (1) Delirium, drug-induced: Status: Acute (2) Lewy body dementia: Status: Acute (3) Hypertension: Status: Acute Qualifiers: Hypertension type: essential hypertension Qualified Code(s): I10 - Essential (primary) hypertension (4) Non-ST elevation MD (NSTEMI): Status: Acute (5) Dementia: Status: Acute (6) CAD (coronary artery disease): Status: Acute Qualifiers: Coronary Disease-Associated Artery/Lesion type: [place] artery [place] vs. transplanted heart: [place] heart Associated angina: with unspecified form of angina Qualified Code(s): I25.119 - Atherosclerotic heart disease of [place] coronary artery with unspecified angina pectoris (7) Parkinson's disease: Status: Acute Plan Altered mental status -Likely drug-induced delirium -Likely side effect of ropinirole -Potentially Ranexa could also be a contributing factor -Continue to hold ropinirole, Ranexa -Monitor mentation -UA within normal limits chest x-ray within normal notes, CT head no acute findings, no significant electrolyte abnormalities CAD, continue aspirin, Plavix, Imdur History of Parkinson's disease, continue Sinemet History of dementia, he has been taking galantamine in some time, concern for possible galantamine withdrawal, hold for now DNR/DNI Lovenox for DVT prophylaxis Attestations Medical Necessity Statement*: Patient requires hospitalization, outpatient with observation, for altered mental status Coding Level of Care Code Acute Marketing Development Representative for marisa Fwd Diagnoses Delirium, drug-induced R41.0; T50.905A Lewy body dementia G31.83; F02.80 Hypertension I10 Hypertension type: essential hypertension Non-ST elevation MD (NSTEMI) I21.4 Dementia F03.90 CAD (coronary artery disease) I25.119 Coronary Disease-Associated Artery/Lesion type: [place] artery [place] vs. transplanted heart: [place] heart Associated angina: with unspecified form of angina Parkinson's disease G20
[2022-06-30] VITALS (13 sets, daily range): BP systolic 120–223; BP diastolic 63–83; PULSE 45–80; RESP 14–21; TEMP 36.6–36.9; O2SAT 94–97
[2022-06-30] MEDS: enoxaparin 40 mg/0.4 mL Syringe SUBCUT ×2 (00:28→20:21)
[2022-06-30] MEDS: sodium chloride 0.9% 1,000 ML 75 ML IV ×3 (00:30→20:21)
[2022-06-30] MEDS: quetiapine 25 mg Tablet PO ×3 (03:07→20:36)
[2022-06-30 04:44] LABS: Basophils % 0.6 %; Eosinophils # 0.2 10^3/uL (0.0-0.8); Eosinophils % 2.3 %; Hematocrit 38.3 % (42.0-52.0); Hemoglobin 12.8 g/dL (11.7-16.6); Lymphocytes # 1.5 10^3/uL (0.8-4.8); Lymphocytes % 22.4 %; Mean Corpuscular HGB Conc 33.4 g/dL (30.0-36.0); Mean Corpuscular Hemoglobin 31.6 pg (28.0-34.0); Mean Corpuscular Volume 94.6 fl (80-94); Mean Platelet Volume 10.6 fL (7.4-10.4); Monocytes # 0.6 10^3/uL (0.2-0.9); Monocytes % 9.8 %; Neutrophils # 4.24 10^3/uL (1.8-7.7); Neutrophils % 64.7 %; Nucleated Red Blood Cells % 0 %; Platelet Count 154 10^3/cmm (130-400); Red Blood Count 4.05 10^6/uL (4.1-5.3); Red Cell Distribution Width 12.9 % (12.1-15.1); White Blood Count 6.6 10^3/uL (4.0-10.0)
[2022-06-30 05:08] LABS: Alanine Aminotransferase 6 U/L (0-41); Albumin Level 3.5 g/dL (3.5-5.2); Alkaline Phosphatase 97 IU/L (40-130); Anion Gap 13.2 (5-19); Aspartate Amino Transferase 10 U/L (0-40); Blood Urea Nitrogen 17 mg/dL (8-23); Calcium 8.8 mg/dL (8.5-10.5); Carbon Dioxide 23 mmol/L (22-29); Chloride 105 mmol/L (98-107); Globulin 2.4 g/dL (1.3-4.6); Glucose 107 mg/dL (65-115); Magnesium 1.9 mg/dL (1.7-2.3); Osmolality Calculated 286 mOsm/kg (285-295); Phosphorus 2.8 mg/dL (2.5-4.5); Potassium 4.2 mmol/L (3.5-5.1); Sodium 137 mmol/L (136-145); Total Bilirubin 0.2 mg/dL (0.15-1.2); Total Protein 5.9 g/dL (6.6-8.7)
[2022-06-30 05:10] LABS: Ammonia 26 umol/L (16-60)
--- NOTE | 2022-06-30 07:57 | PC.PHAR ---
pt unable to verify medications-pt brought in med bottles and pts daughter [place] [phone] verified pts medications-rx bottle dated 06/09/22 for isosorbide mono er 30mg take 15mg bid pts daughter states dr decreased to 15mg hs-pts daughter states ropinirole 0.5mg tid was dced 06/29/22 pts daughter states the pt took yesterday 06/29/22- states it was changed to seroquel 25mg daily states pt hasnt started taking yet rx written 06/29/22-notes are made in the pharmacy comments
[2022-06-30] MEDS: aspirin 81 mg EC Tablet PO (09:24)
[2022-06-30] MEDS: oxybutynin 5 mg Tablet PO ×2 (09:24→20:35)
[2022-06-30] MEDS: isosorbide mononitrate ER 30 mg Tablet 15 MG PO (09:24)
[2022-06-30] MEDS: clopidogrel 75 mg Tablet PO (09:24)
[2022-06-30] MEDS: pantoprazole DR 40 mg Tablet PO (09:24)
[2022-06-30] MEDS: carbidopa-levodopa 25-100mg Tablet 2 EACH PO ×2 (09:36→20:35)
--- NOTE | 2022-06-30 10:52 | PC.NURSE ---
STROKE ALERT CALLED BY DR MARIN WHILE THIS NURSE WAS IN ANOTHER ROOM. UPON ARRIVAL TO PT ROOM THIS NURSE ASSISTED DR. MARIN, DR. JAIME, AND DR. PAIGE WITH [facility] STROKE SCALE. AFTER STROKE SCALE WAS COMPLETED DR. PAIGE INSTRUCTED TO CALL OFF STROKE ALERT.
[2022-06-30] MEDS: cholecalciferol (vitamin D3) 1,000 unit Tablet 3000 UNIT PO (11:59)
--- NOTE | 2022-06-30 12:07 | P.PN_ITS ---
Subjective Subjective: Overnight labs and H&P reviewed. This morning the stroke code was called while patient was still awaiting bed placement in the ER as his daughter had noted some seizure-like activity. Patient is currently unable to talk. He is confused, not consistently following commands. Vitals/I&O/Wt Last Vital Signs Temp 98.0 F 06/30/22 12:00 Pulse 57 L 06/30/22 12:00 Resp 18 06/30/22 12:00 BP 185/72 06/30/22 12:00 Pulse Ox 97 06/30/22 12:00 O2 Del Method 06/30/22 12:00 06/29/22 06/30/22 06/30/22 22:59 06:59 14:59 Intake Total 1000 / 1000 861.25 / 861.25 Balance 1000 / 1000 861.25 / 861.25 Weight last 48 hrs Weight 71.668 kg Physical Exam Narrative: General: No acute distress, lying in bed, does not answer questions or follow commands consistently HEENT: NC/atraumatic Chest: Normal vesicular breath sounds, no added sounds, equal good air entry bilaterally CVS: S1-S2 regular, no murmurs, no tachycardia, no gallops, no rubs Abdomen: Soft, nontender Neuro: unable to assess at this time as does not follow commands, however tracks daughter at bedside with his eyes Data : 06/30/22 04:20 06/30/22 04:20 A&P Assessment and plan (1) Delirium, drug-induced: Status: Acute (2) Lewy body dementia: Status: Acute (3) Hypertension: Status: Acute Qualifiers: Hypertension type: essential hypertension Qualified Code(s): I10 - Essential (primary) hypertension (4) Non-ST elevation AR (NSTEMI): Status: Acute (5) Dementia: Status: Acute (6) CAD (coronary artery disease): Status: Acute Qualifiers: Coronary Disease-Associated Artery/Lesion type: [place] artery [place] vs. transplanted heart: [place] heart Associated angina: with unspecified form of angina Qualified Code(s): I25.119 - Atherosclerotic heart disease of [place] coronary artery with unspecified angina pectoris (7) Parkinson's disease: Status: Acute Plan Altered mental status, worse than at baseline today. May be related to medications vs progression of his known underlying Lewy body dementia. assessing additionally for metabolic encephalopathy -UA within normal limits chest x-ray within normal notes, CT head no acute findings, no significant electrolyte abnormalities CAD, continue aspirin, Plavix, Imdur History of Parkinson's disease, continue Sinemet History of dementia, he has been taking galantamine in some time Dispo: with patient's worsening hallucinations, unpredictable behavior and also now with alteration in mentation over baseline, family is having a difficult time managing at home, unable to leave him unattended for more than a few minutes at a time. Will need additional assessment for ascertain most ap propriate and safe disposition- home vs SNF DNR/DNI Lovenox for DVT prophylaxis Attestations Medical Necessity Statement*: altered mental status, needs appropriate evaluation and safe disposition planning Coding Level of Care Code Acute Client Relations Specialist for Krystyna Antony Diagnoses Delirium, drug-induced R41.0; T50.905A Lewy body dementia G31.83; F02.80 Hypertension I10 Hypertension type: essential hypertension Non-ST elevation AR (NSTEMI) I21.4 Dementia F03.90 CAD (coronary artery disease) I25.119 Coronary Disease-Associated Artery/Lesion type: [place] artery [place] vs. transplanted heart: [place] heart Associated angina: with unspecified form of angina Parkinson's disease G20
--- NOTE | 2022-06-30 13:04 | PC.OT ---
HOLD OT EVALUATION DUE TO STROKE CODE CALLED THIS A.M.
--- NOTE | 2022-06-30 16:18 | PC.NURSE ---
Reported heart rate in the 40's with PVCs, blood pressure elevated, and patient's impulsive behavior to Dr. Cline.
--- NOTE | 2022-06-30 17:25 | PC.NURSE ---
Left phone message and voalte message for Dr. Cline to report patient with muscle tension and shaking. Vital signs reported.
--- NOTE | 2022-06-30 17:57 | ECG_ITS ---
[facility] Test Date: 2022-06-30 Pat Name: Renny Matos Department: Room: 259 Gender: Male Station Baggage Porter: : 1940 Requested By: Lizeth Cline Order Number: [id number] Ed[place] MD: Pauline Chiu M.D. Measurements Intervals [place] Rate: 52 P: 26 CA: 197 QRS: -27 QRSD: 117 T: -1 QT: 462 QTc: 432 Interpretive Statements SINUS BRADYCARDIA BORDERLINE LEFT AXIS DEVIATION [QRS AXIS < -20] LOW QRS VOLTAGE IN PRECORDIAL LEADS [QRS DEFLECTION < 1.0 mV IN CHEST LEADS] RIGHT BUNDLE BRANCH BLOCK [120+ ms QRS DURATION, UPRIGHT V1, 40+ ms S IN I/aVL/V4/V5/V6] Compared to ECG 06/29/2022 19:33:39 Low QRS voltage now present Electronically Signed On 07-01-2022 18:58:47 CDT by Pauline Chiu M.D. [email or web address]
--- NOTE | 2022-06-30 18:12 | PC.NURSE ---
Spoke to Dr. Cline. Reported observations during patient's episode of muscle tension and shaking. Reported vital signs. Discussed patient's heart rhythm. Orders to check prolactin and troponin in am. Reported that patient is lethargic and unable to safely swallow at this time. Ok to re-time 1800 meds for 2100.
[2022-06-30] MEDS: hyDRALAzine 20 mg/mL INJ 1 mL 10 MG IVP (18:19)
--- NOTE | 2022-06-30 18:50 | PC.NURSE ---
174 Called to patient bedside by daughter who stated he is having another one of his episodes . Vital signs obtained. Dr. Cline notified. Orders for IV hydralazine. [address]KG per Dr[address] Cline.
--- NOTE | 2022-06-30 20:13 | PC.NURSE ---
Addendum entered by Ela Hart RN 06/30/22 20:15: Unable to complete stroke scale as well. Patient refusing to follow commands or answer questions. Original Note: Patient refusing to answer orientation question. Unable to assess patient's orientation at this time, however based on behavior, patient appears to be confused.
[2022-06-30] MEDS: citalopram 20 mg Tablet PO (20:36)
--- NOTE | 2022-06-30 20:36 | PC.NURSE ---
Addendum entered by Ela Hart RN 07/01/22 06:32: Daughter is Claribel [phone] Original Note: Patient refusing nighttime medications and refusing to eat dinner tray. Patient's daughter came to room and patient took medications and ate a sandwhich with daughter in room.
[2022-07-01] VITALS (10 sets, daily range): BP systolic 132–195; BP diastolic 65–81; PULSE 57–76; RESP 13–20; TEMP 36.6–37.1; O2SAT 92–96
--- NOTE | 2022-07-01 02:41 | PC.NURSE ---
Patient refusing to use urinal.
[2022-07-01 05:06] LABS: Basophils # 0.1 10^3/uL (0.0-0.1); Basophils % 0.6 %; Eosinophils # 0.2 10^3/uL (0.0-0.8); Eosinophils % 2.3 %; Hematocrit 39.3 % (42.0-52.0); Lymphocytes # 1.9 10^3/uL (0.8-4.8); Lymphocytes % 23.9 %; Mean Corpuscular HGB Conc 33.1 g/dL (30.0-36.0); Mean Corpuscular Hemoglobin 31.6 pg (28.0-34.0); Mean Corpuscular Volume 95.6 fl (80-94); Mean Platelet Volume 10.5 fL (7.4-10.4); Monocytes # 0.8 10^3/uL (0.2-0.9); Monocytes % 10.4 %; Neutrophils % 62.7 %; Nucleated Red Blood Cells % 0 %; Platelet Count 160 10^3/cmm (130-400); Red Blood Count 4.11 10^6/uL (4.1-5.3); Red Cell Distribution Width 13.2 % (12.1-15.1); White Blood Count 7.8 10^3/uL (4.0-10.0)
[2022-07-01 05:30] LABS: Troponin T (5th) Once 21 ng/L (0-15)
[2022-07-01 05:31] LABS: Alanine Aminotransferase < 5 U/L (0-41); Albumin Level 3.6 g/dL (3.5-5.2); Alkaline Phosphatase 81 IU/L (40-130); Anion Gap 12.2 (5-19); Aspartate Amino Transferase 10 U/L (0-40); Blood Urea Nitrogen 14 mg/dL (8-23); Calcium 8.9 mg/dL (8.5-10.5); Carbon Dioxide 22 mmol/L (22-29); Chloride 111 mmol/L (98-107); Globulin 1.9 g/dL (1.3-4.6); Glucose 96 mg/dL (65-115); Osmolality Calculated 292 mOsm/kg (285-295); Phosphorus 2.7 mg/dL (2.5-4.5); Potassium 4.2 mmol/L (3.5-5.1); Sodium 141 mmol/L (136-145); Total Bilirubin 0.4 mg/dL (0.15-1.2); Total Protein 5.5 g/dL (6.6-8.7)
[2022-07-01 06:29] LABS: Prolactin 11.43 ng/mL (4.0-15.2)
[2022-07-01] MEDS: pantoprazole DR 40 mg Tablet PO (08:42)
[2022-07-01] MEDS: quetiapine 25 mg Tablet PO ×2 (08:42→21:46)
[2022-07-01] MEDS: isosorbide mononitrate ER 30 mg Tablet 15 MG PO (08:42)
[2022-07-01] MEDS: clopidogrel 75 mg Tablet PO (08:42)
[2022-07-01] MEDS: aspirin 81 mg EC Tablet PO (08:42)
[2022-07-01] MEDS: carbidopa-levodopa 25-100mg Tablet 2 EACH PO ×2 (08:42→17:27)
[2022-07-01] MEDS: oxybutynin 5 mg Tablet PO ×2 (08:42→17:27)
[2022-07-01] MEDS: cholecalciferol (vitamin D3) 1,000 unit Tablet 3000 UNIT PO (12:34)
--- NOTE | 2022-07-01 17:21 | P.PN_ITS ---
Subjective Subjective: Yesterday evening patient was noted to have a short run of 11 beats of V. tach. Twelve-lead EKG showed sinus bradycardia without acute ST-T wave changes. He was asymptomatic during this episode. Beta-blockers not initiated as his resting heart rate is 55 to 57 bpm. No further events noted on telemetry. Concern also per family that he may have had a possible seizure episode with tightening and flexing motions of his bilateral upper extremities. However this was transient without any postictal confusion, tongue bite, incontinence. Prolactin checked this morning with labs is negative. His mental status is much improved today. He is alert and awake, having conversation with his family at bedside. His daughters feel that he is back to his baseline. He was noted to have uncontrolled blood pressure, amlodipine 5 mg daily was added. Medications: Reviewed: Yes Vitals/I&O/Wt Last Vital Signs Temp 98 F 07/01/22 16:00 Pulse 57 L 07/01/22 16:00 Resp 16 07/01/22 16:00 BP 160/75 07/01/22 16:00 Pulse Ox 94 07/01/22 16:00 O2 Del Method 07/01/22 16:00 07/01/22 07/01/22 07/01/22 06:59 14:59 22:59 Intake Total 1840 / 1840 Balance 1840 / 1840 Weight last 48 hrs Weight 74.616 kg Weight 71.668 kg Physical Exam Narrative: General: No acute distress, AO x3 Chest: Normal vesicular breath sounds, no added sounds, equal good air entry bilaterally CVS: S1-S2 regular, no murmurs, no tachycardia, no gallops, no rubs Abdomen: Soft, nontender, no organomegaly, bowel sounds present Neuro: Currently moving all extremities while lying in bed. Data : 07/01/22 04:42 07/01/22 04:42 A&P Assessment and plan (1) Delirium, drug-induced: Status: Acute (2) Lewy body dementia: Status: Acute (3) Hypertension: Status: Acute Qualifiers: Hypertension type: essential hypertension Qualified Code(s): I10 - Essential (primary) hypertension (4) Non-ST elevation [place] (NSTEMI): Status: Acute (5) Dementia: Status: Acute (6) CAD (coronary artery disease): Status: Acute Qualifiers: Coronary Disease-Associated Artery/Lesion type: [place] artery [place] vs. transplanted heart: [place] heart Associated angina: with unspecified form of angina Qualified Code(s): I25.119 - Atherosclerotic heart disease of [place] coronary artery with unspecified angina pectoris (7) Parkinson's disease: Status: Acute Plan Altered mental status, mentation is now back to his baseline. May be related to medications vs progression of his known underlying Lewy body dementia. Overall negative work-up for metabolic encephalopathy -UA within normal limits chest x-ray within normal notes, CT head no acute findings, no significant electrolyte abnormalities. He had 1 episode of short run of V. tach without any clinical correlate. CAD, continue aspirin, Plavix, Imdur. Cannot add beta-blockers as patient's resting heart rate is at the 50s. History of Parkinson's disease, continue Sinemet History of dementia, he has been taking galantamine in some time Dispo: Overall patient is planned for discharge home, however his family members that usually take care of him are not available at home to take care of him due to scheduled surgery. We are therefore in the process of safe discharge planning while family tries to arrange caregivers at home to receive him after discharge. DNR/DNI Lovenox for DVT prophylaxis Attestations Medical Necessity Statement*: Currently staying in the hospital is appropriate disposition planning is ongoing. Patient needs caregivers at home to ensure safety. Coding Level of Care Code Acute Veneer Grader for Krystyna Antony Diagnoses Delirium, drug-induced R41.0; T50.905A Lewy body dementia G31.83; F02.80 Hypertension I10 Hypertension type: essential hypertension Non-ST elevation [place] (NSTEMI) I21.4 Dementia F03.90 CAD (coronary artery disease) I25.119 Coronary Disease-Associated Artery/Lesion type: [place] artery [place] vs. transplanted heart: [place] heart Associated angina: with unspecified form of angina Parkinson's disease G20
[2022-07-01] MEDS: citalopram 20 mg Tablet PO (21:46)
[2022-07-01] MEDS: enoxaparin 40 mg/0.4 mL Syringe SUBCUT (23:41)
[2022-07-02] VITALS (8 sets, daily range): BP systolic 129–201; BP diastolic 70–94; PULSE 50–73; RESP 17–20; TEMP 36.5–36.6; O2SAT 95
[2022-07-02 05:07] LABS: Basophils # 0.1 10^3/uL (0.0-0.1); Basophils % 0.7 %; Eosinophils # 0.2 10^3/uL (0.0-0.8); Eosinophils % 3.2 %; Hematocrit 38.6 % (42.0-52.0); Hemoglobin 12.8 g/dL (11.7-16.6); Lymphocytes # 1.7 10^3/uL (0.8-4.8); Lymphocytes % 25.3 %; Mean Corpuscular HGB Conc 33.2 g/dL (30.0-36.0); Mean Corpuscular Hemoglobin 31.4 pg (28.0-34.0); Mean Corpuscular Volume 94.8 fl (80-94); Mean Platelet Volume 10.5 fL (7.4-10.4); Monocytes # 0.6 10^3/uL (0.2-0.9); Monocytes % 9.1 %; Neutrophils # 4.19 10^3/uL (1.8-7.7); Neutrophils % 61.4 %; Nucleated Red Blood Cells % 0 %; Platelet Count 145 10^3/cmm (130-400); Red Blood Count 4.07 10^6/uL (4.1-5.3); Red Cell Distribution Width 12.7 % (12.1-15.1); White Blood Count 6.8 10^3/uL (4.0-10.0)
[2022-07-02 05:26] LABS: Chloride 107 mmol/L (98-107); Sodium 140 mmol/L (136-145)
[2022-07-02 05:50] LABS: Alanine Aminotransferase < 5 U/L (0-41); Albumin Level 3.4 g/dL (3.5-5.2); Alkaline Phosphatase 79 IU/L (40-130); Anion Gap 14.1 (5-19); Aspartate Amino Transferase 10 U/L (0-40); Blood Urea Nitrogen 13 mg/dL (8-23); Calcium 9.2 mg/dL (8.5-10.5); Carbon Dioxide 23 mmol/L (22-29); Globulin 2.3 g/dL (1.3-4.6); Glucose 98 mg/dL (65-115); Osmolality Calculated 290 mOsm/kg (285-295); Phosphorus 3.1 mg/dL (2.5-4.5); Total Bilirubin 0.6 mg/dL (0.15-1.2); Total Protein 5.7 g/dL (6.6-8.7)
[2022-07-02 05:51] LABS: Potassium 4.1 mmol/L (3.5-5.1)
[2022-07-02] MEDS: oxybutynin 5 mg Tablet PO (09:51)
[2022-07-02] MEDS: aspirin 81 mg EC Tablet PO (09:52)
[2022-07-02] MEDS: clopidogrel 75 mg Tablet PO (09:52)
[2022-07-02] MEDS: isosorbide mononitrate ER 30 mg Tablet 15 MG PO (09:52)
[2022-07-02] MEDS: carbidopa-levodopa 25-100mg Tablet 2 EACH PO (09:52)
[2022-07-02] MEDS: amlodipine 5 mg Tablet PO (09:52)
[2022-07-02] MEDS: quetiapine 25 mg Tablet PO (09:52)
[2022-07-02] MEDS: pantoprazole DR 40 mg Tablet PO (09:52)
[2022-07-02] MEDS: cholecalciferol (vitamin D3) 1,000 unit Tablet 3000 UNIT PO (11:23)
--- NOTE | 2022-07-02 12:43 | P.DS_ITS ---
Discharge Providers Date of Admission: 06/29/22 22:59 Date of Discharge: July 02, 2022 Attending Provider at Admission: Luis Hurtado MD Attending Provider at Discharge: Lizeth Cline MD Primary Care Provider: Minnie Coello MD Diagnoses at Discharge Discharge Diagnosis (1) Delirium, drug-induced: Status: Acute (2) Lewy body dementia: Status: Acute (3) Hypertension: Status: Acute Qualifiers: Hypertension type: essential hypertension Qualified Code(s): I10 - Essential (primary) hypertension (4) Non-ST elevation AL (NSTEMI): Status: Acute (5) Dementia: Status: Acute (6) CAD (coronary artery disease): Status: Acute Qualifiers: Coronary Disease-Associated Artery/Lesion type: torres martinez artery [place] vs. transplanted heart: torres martinez heart Associated angina: with unspecified form of angina Qualified Code(s): I25.119 - Atherosclerotic heart disease of torres martinez coronary artery with unspecified angina pectoris (7) Parkinson's disease: Status: Acute Reason for Visit Reason for Visit: low ox, hallucinating Hospital Course Hospital Course Renny Matos is a 82 year old male with a past medical history of Lewy body dementia on Sinemet and galantamine, Parkinson's disease, Shy-Drager syndrome, hypertension, NSTEMI, on aspirin Plavix Ranexa, Imdur, who recently diagnosed with restless leg syndrome, was placed on ropinirole presented to [facility] for increased confusion.? According to family members at bedside he has been hallucinating, seeing things are not there, he has had falls, he has hit his head. CT head and emergency room had no acute findings.? No fevers, chills, no cough.? No dysuria, no hematuria. His delirium was thought to be related to new medications possibly ropinirole versus Ranexa both of which were new medications. Galantamine was additionally on hold during hospital stay. With holding these medications his mental status improved while he was in the hospital. He was back to his baseline mentation. His daughters were able to arrange caregivers at home and elected to take patient home at this time. They declined home health. He has had no further hallucinations. Metabolic en cephalopathy was excluded with a normal UA, normal chest x-ray, normal CT head, normal electrolytes. Physical Exam Narrative: General: No acute distress, AO x 2, at baseline HEENT: PERRLA, pupils bilaterally equal and reactive, pallors not present Chest: Normal vesicular breath sounds, no added sounds, equal good air entry bilaterally CVS: S1-S2 regular, no murmurs, no tachycardia, no gallops, no rubs Abdomen: Soft, nontender, no organomegaly, bowel sounds present Neuro: At baseline Discharge Data Studies Completed and Pending Completed Studies During Hospitalization Category Date Time Status CT head wo con* [id number] Stat Cat Scan 06/29/22 18:59 Completed XR chest 1V portable [id number] Stat Exams 06/29/22 17:30 Completed Radiology Impressions Chest X-Ray 06/29/22 17:30 IMPRESSION: Bilateral hilar to lower lobe atelectasis versus minimal infiltrate. Head CT 06/29/22 18:59 IMPRESSION: Negative for intracranial hemorrhage or mass effect Laboratory Results WBC 6.8 10^3/uL (4.0-10.0) 07/02/22 04:40 RBC 4.07 10^6/uL (4.1-5.3) L 07/02/22 04:40 Hgb 12.8 g/dL (11.7-16.6) 07/02/22 04:40 Hct 38.6 % (42.0-52.0) L 07/02/22 04:40 MCV 94.8 fl (80-94) H 07/02/22 04:40 MCH 31.4 pg (28.0-34.0) 07/02/22 04:40 MCHC 33.2 g/dL (30.0-36.0) 07/02/22 04:40 RDW 12.7 % (12.1-15.1) 07/02/22 04:40 Plt Count 145 10^3/cmm (130-400) 07/02/22 04:40 MPV 10.5 fL (7.4-10.4) H 07/02/22 04:40 Neut % (Auto) 61.4 % 07/02/22 04:40 Lymph % (Auto) 25.3 % 07/02/22 04:40 [place] % (Auto) 9.1 % 07/02/22 04:40 Eos % (Auto) 3.2 % 07/02/22 04:40 Baso % (Auto) 0.7 % 07/02/22 04:40 Neut # (Auto) 4.19 10^3/uL (1.8-7.7) 07/02/22 04:40 Lymph # (Auto) 1.7 10^3/uL (0.8-4.8) 07/02/22 04:40 [place] # (Auto) 0.6 10^3/uL (0.2-0.9) 07/02/22 04:40 Eos # (Auto) 0.2 10^3/uL (0.0-0.8) 07/02/22 04:40 Baso # (Auto) 0.1 10^3/uL (0.0-0.1) 07/02/22 04:40 Nucleated RBC % (auto) 0 % 07/02/22 04:40 Nucleated RBCs # 0.0 /100WBC 07/02/22 04:40 Sodium 140 mmol/L (136-145) 07/02/22 04:40 Potassium 4.1 mmol/L (3.5-5.1) 07/02/22 04:40 Chloride 107 mmol/L (98-107) 07/02/22 04:40 Carbon Dioxide 23 mmol/L (22-29) 07/02/22 04:40 Anion Gap 14.1 (5-19) 07/02/22 04:40 BUN 13 mg/dL (8-23) 07/02/22 04:40 Creatinine 0.9 mg/dL (0.7-1.2) 07/02/22 04:40 GFR Calculation Not Reportable 07/02/22 04:40 Glucose 98 mg/dL (65-115) 07/02/22 04:40 Calculated Osmolality 290 mOsm/kg (285-295) 07/02/22 04:40 Calcium 9.2 mg/dL (8.5-10.5) 07/02/22 04:40 Phosphorus 3.1 mg/dL (2.5-4.5) 07/02/22 04:40 Magnesium 2.0 mg/dL (1.7-2.3) 07/02/22 04:40 Total Bilirubin 0.6 mg/dL (0.15-1.2) 07/02/22 04:40 AST 10 U/L (0-40) 07/02/22 04:40 ALT < 5 U/L (0-41) 07/02/22 04:40 Alkaline Phosphatase 79 IU/L (40-130) 07/02/22 04:40 Ammonia 26 umol/L (16-60) 06/30/22 04:20 Troponin T Gen 5 ng/L 21 ng/L (0-15) H 07/01/22 04:42 Troponin T Baseline 14 ng/L (0-15) 06/29/22 18:55 Troponin T 120 Minute 18.05 ng/L (0-15) H 06/29/22 21:00 Delta Troponin T 4.05 ABS# (0-10) 06/29/22 21:00 C-Reactive Protein 3.0 mg/L (0.0-4.9) 06/29/22 18:55 NT-Pro-B Natriuret Pep 586 pg/mL (0-450) H 06/29/22 18:55 Total Protein 5.7 g/dL (6.6-8.7) L 07/02/22 04:40 Albumin 3.4 g/dL (3.5-5.2) L 07/02/22 04:40 Globulin 2.3 g/dL (1.3-4.6) 07/02/22 04:40 TSH 1.52 uIU/mL (0.27-4.20) 06/29/22 18:55 Prolactin 11.43 ng/mL (4.0-15.2) 07/01/22 04:42 Urine Color Yellow (Yellow) 06/29/22 21:19 Urine Appearance Clear (CLEAR) 06/29/22 21:19 Urine pH 5 (5-7) 06/29/22 21:19 Ur Specific [place] 1.020 (1.005-1.030) 06/29/22 21:19 Urine Protein Neg (Negative) 06/29/22 21:19 Urine Glucose (UA) Norm (Normal) 06/29/22 21:19 Urine Ketones Negative (Negative) 06/29/22 21:19 Urine Blood Neg (Negative) 06/29/22 21:19 Urine Nitrate Negative (Negative) 06/29/22 21:19 Urine Bilirubin Neg (Negative) 06/29/22 21:19 Urine Urobilinogen Norm mg/dL (Negative) 06/29/22 21:19 Ur Leukocyte Esterase Negative (Negative) 06/29/22 21:19 Coronavirus 229E (PCR) Not detected (NOT DETECT) 06/29/22 19:05 SARS-CoV-2 (PCR) Not detected (NOT DETECT) 06/29/22 19:05 Vitals Last Vital Signs Temp 97.9 F 07/02/22 08:00 Pulse 58 L 07/02/22 12:00 Resp 18 07/02/22 12:00 BP 178/81 07/02/22 12:00 Pulse Ox 95 07/02/22 12:00 O2 Del Method 07/02/22 12:00 Discharge Plan Discharge Patient Disposition: Home Condition: Stable Prescriptions: Continued Stool Softener 50 mg capsule 50 - 100 mg PO DAILY PRN (Reason: Constipation) oxybutynin chloride 5 mg tablet 5 mg PO BID carboxymethylcellulose sodium 1 % drops, liquid gel 1 drp ophthalmic (eye) BID PRN (Reason: Dry Eye(S)) coenzyme Q10 [Co Q-10] 200 mg capsule 200 mg PO QAM carbidopa-levodopa 25-100 mg tablet 2 tab PO BID Qty: 360 1RF nitroglycerin 0.4 mg tablet, sublingual 0.4 mg sublingual Q5M PRN (Reason: chest pain) Qty: 25 3RF Rx Instructions: do not exceed 3 doses per episode pantoprazole 40 mg tablet,delayed release (DR/EC) 40 mg PO DAILY Qty: 30 1RF quetiapine [Seroquel] 25 mg tablet 25 mg PO DAILY Qty: 30 0RF Rx Instructions: Take 1 tablet at night (pt not started as of 06/29/22) cholecalciferol (vitamin D3) [Vitamin D3] 25 mcg (1,000 unit) Tablet 75 mcg PO QAM polyethylene glycol 3350 [Miralax] 17 gram powder in packet 17 g PO DAILY PRN (Reason: Constipation) Tylenol Extra Strength 500 mg tablet 1,000 mg PO BID PRN (Reason: pain) Lidocaine Viscous 2 % solution See Rx Instructions .ROUTE .COMPLEX Rx Instructions: use as directed prn Celexa 40 mg Tablet 20 mg PO BEDTIME isosorbide mononitrate 30 mg tablet extended release 24 hr 15 mg PO BEDTIME Plavix 75 mg Tablet 75 mg PO QAM Aspir-81 81 mg Tablet,Delayed Release (Dr/Ec) 81 mg PO QAM Thc Gummies 1 tab PO DAILY Turmeric-Curcumin With Sunshine 500 mg PO DAILY Held galantamine 4 mg tablet 4 mg PO BID Hold Instructions: Resume on 07/09/22. Rx Instructions: administer with AM and PM meals ropinirole 0.5 mg Tablet 0.5 mg PO TID Hold Instructions: Resume on 07/16/22. ranolazine 500 mg tablet extended release 12 hr 500 mg PO QAM Hold Instructions: Resume on 07/16/22. Discharge Orders: Discharge Order (Routine); Ordered 07/02/22 Ordered By: Lizeth Cline Referrals: Minnie Coello MD [Primary Care Provider] - Vandana Cotto MD [Physician] - 2 weeks Discharge Diet: Usual diet Discharge Activity: Resume usual activity Patient Instructions: Opioid Safety Discharge Attestations Time Spent in Discharge Care*: greater than 30 min Status at Discharge: Cognitive status at discharge: cognitively intact , Behavioral status at discharge: cooperative , Quality Metrics Clinical Quality Measures [ No reported AMI, CVA or VTE this stay] Coding Level of Care Code Acute [facility] note Diagnoses Delirium, drug-induced R41.0; T50.905A Lewy body dementia G31.83; F02.80 Hypertension I10 Hypertension type: essential hypertension Non-ST elevation AL (NSTEMI) I21.4 Dementia F03.90 CAD (coronary artery disease) I25.119 Coronary Disease-Associated Artery/Lesion type: torres martinez artery [place] vs. transplanted heart: torres martinez heart Associated angina: with unspecified form of angina Parkinson's disease G20
--- NOTE | 2022-07-02 12:57 | P.PNCC_ITS ---
Stroke Alert Activation ED Arrival Date: 06/29/22 Other Last Known Well Infomation: I was called stat for stroke team and came directly to the emergency department for this 82-year-old man who is well-known to me. The family brought him in and told the nurse in triage that he was having a stroke. Stroke alert was called on the basis of the family's history. I have had multiple long visits with this gentleman who has Parkinson disease with memory loss. I started seeing him in March 2020 after he had multiple episodes of hallucinations and confusion. 1 of those episodes occurred after low back surgery for severe leg pain. 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 He had multiple hospitalizations for chest pain last year. I have been seeing him as an outpatient every 2 or 3 months. He has chronic nausea which has limited the use of carbidopa levodopa and galantamine. His last score on [place] cognitive assessment was 15 out of 30 indicating advanced dementia. He came to see me 06/21/2022 and said that he was having such severe pain in his legs that it was unbearable. He had already completed physical therapy and Parkinson's specific speech therapy. I started him on low-dose ropinirole 0.5 mg 3 times a day to help with the pain in his legs. The family called earlier today complaining of hallucinations since starting ropinirole and I asked them to stop his ropinirole and start Seroquel 25 mg at night. The family elected to bring him in instead. Stroke Alert Activated by: Triage NIH stroke score NIHSS: Level Of Consciousness - 1a: 0 Level Of Consciousness Questions - 1b: One Correct Level Of Consciousness Commands - 1c: One Correct Best Gaze - 2: Normal Visual Bansal - 3: No Visual Loss Facial Palsy - 4: Normal Motor Arm Right - 5: No Drift Motor Arm Left - 5: No Drift Motor Leg Right - 6: No Drift Motor Leg Left - 6: No Drift Limb Ataxia - 7: Absent Sensory - 8: Normal Best Language - 9: No Aphasia Dysarthia - 10: Normal Extinction And Inattention - 11: 0 Score: Total Score: 2 Stroke Alert Data/Treatment Time to CT of Head: 18:59 CT Impression: Negative for acute bleed. Mild diffuse white matter changes. Stroke Risk Factors: coronary artery disease and obesity tPA Contraindication: tPA Contraindication: Treatment not indcated tPA Admin Prior to Arrival: No Other Patient & Family Education: Diagnosis of Lewy body disease Other Information: I discussed the difference between a stroke and a Lewy body spell. I think his current delirium is induced by ropinirole. Critical Care Time Critical Care Time: 30 - 74 mins Additional information about critical care time: I came directly to the emergency department and examined the patient. I reviewed his chart and dictated this note. A&P Assessment and plan (1) Delirium, drug-induced: Status: Acute (2) Shy-Drager syndrome: Status: Acute (3) Lewy body dementia: I explained to the patient's daughter that patients with Lewy body disease may have episodes of sudden worsening, sometimes without precipitating cause but in this case likely due to ropinirole. Plan to stop ropinirole and if necessary he can start Seroquel 25 mg once or twice a day. Status: Acute Plan Discussed with Dr. Cline. Coding Level of Care Code Acute [employer] for Krystyna Antony Diagnoses Delirium, drug-induced R41.0; T50.905A Shy-Drager syndrome G90.3 Lewy body dementia G31.83; F02.80 Time Spent (min) 40
== END 2022-07-02 15:00 | disposition home or self-care (01) ==
LOC: ER 22:57 → ER IP 23:00 → MEDSURG 06-30 10:22
PROVIDERS: Emergency Medicine; Internal Medicine Cardiovascular Disease; Admitting Provider Family Medicine; Emergency Provider Emergency Medicine; PCP Family Medicine; Visit Provider Student in an Organized Health Care Education/Training Program
DX: R41.0 Disorientation, unspecified (principal); T50.905A Adverse effect of unspecified drugs, medicaments and biological substances, initial encounter; G31.83 Neurocognitive disorder with Lewy bodies; F02.80 Dementia in other diseases classified elsewhere, unspecified severity, without behavioral disturbance, psychotic disturbance, mood disturbance, and anxiety; I21.4 Non-ST elevation (NSTEMI) myocardial infarction; I25.119 Atherosclerotic heart disease of native coronary artery with unspecified angina pectoris; G20 Parkinson's disease; G90.3 Multi-system degeneration of the autonomic nervous system; Z79.82 Long term (current) use of aspirin; Z79.02 Long term (current) use of antithrombotics/antiplatelets; Z91.81 History of falling; Z66 Do not resuscitate
CPT/HCPCS: 36415; 70450; 71045; 80053; 81003; 82140; 83735; 83880; 84100; 84146; 84443; 84484; 85025; 86140; 87635; 93005; 96361; 96372; 96374; 97116; 97161; 97166; 97535; 99285; G0378; J0360; J1650; J7030

== ENCOUNTER → 2022-07-08 14:08 | Outpatient (BNVA) | payer OTHER, SELFPAY | PROVIDERS: PCP Family Medicine; Visit Provider Urology | DX: N39.41 Urge incontinence (principal); C61 Malignant neoplasm of prostate; K59.09 Other constipation; G31.83 Neurocognitive disorder with Lewy bodies; F02.80 Dementia in other diseases classified elsewhere, unspecified severity, without behavioral disturbance, psychotic disturbance, mood disturbance, and anxiety; R39.9 Unspecified symptoms and signs involving the genitourinary system | CPT/HCPCS: 51798; 99213 ==

== ENCOUNTER → 2022-07-27 10:54 | Outpatient (BNVA) | payer OTHER, SELFPAY | PROVIDERS: PCP Family Medicine; Visit Provider Specialist | DX: G31.83 Neurocognitive disorder with Lewy bodies (principal); F02.80 Dementia in other diseases classified elsewhere, unspecified severity, without behavioral disturbance, psychotic disturbance, mood disturbance, and anxiety; T50.905D Adverse effect of unspecified drugs, medicaments and biological substances, subsequent encounter | CPT/HCPCS: 99214 ==

== ENCOUNTER 2022-08-21 06:00 | Outpatient (RCR) | payer OTHER, SELFPAY | END 2022-09-20 23:59 | disposition home or self-care (01) | LOC: SPT 06:00 | PROVIDERS: PCP Family Medicine; Referring Provider Family Medicine; Visit Provider Family Medicine | DX: M54.50 Low back pain, unspecified (principal) | CPT/HCPCS: 97113 ==

== ENCOUNTER → 2022-09-16 15:17 | Outpatient (BNVA) | payer OTHER, SELFPAY | PROVIDERS: PCP Family Medicine; Visit Provider Internal Medicine Cardiovascular Disease | DX: R07.9 Chest pain, unspecified (principal); I10 Essential (primary) hypertension; I25.119 Atherosclerotic heart disease of native coronary artery with unspecified angina pectoris; M51.16 Intervertebral disc disorders with radiculopathy, lumbar region | CPT/HCPCS: 99214 ==

== ENCOUNTER → 2022-10-20 11:12 | Outpatient (BNVA) | payer OTHER, SELFPAY | PROVIDERS: PCP Family Medicine; Visit Provider Specialist | DX: G20 Parkinson's disease (principal); F02.82 Dementia in other diseases classified elsewhere, unspecified severity, with psychotic disturbance; M54.9 Dorsalgia, unspecified; M79.604 Pain in right leg; M79.605 Pain in left leg | CPT/HCPCS: 99213 ==

== ENCOUNTER 2023-01-02 19:46 | Emergency (ER) | payer OTHER, SELFPAY ==
[2023-01-02 19:52] VITALS: BP 163/67; PULSE 70; RESP 16; TEMP 37.1; O2SAT 97
--- NOTE | 2023-01-02 20:07 | ED_ITS ---
HPI - Fall General: Chief Complaint: Fall Stated Complaint: Injury Fell Hit Head Time Seen by Provider: 01/02/23 19:57 History of Present Illness: Patient is an 82-year-old male with a history of Parkinson's disease who presents to the ER for evaluation of a fall. Patient was outside whenever he started to walk and began to lose his balance. This is a common occurrence for the patient given his Parkinson's disease. Patient sustained right-sided extraocular contusion with some ecchymosis. He takes aspirin and Plavix. He denies any loss of vision or ocular pain. He does also complain of some mild right shoulder pain with palpation of the anterior aspect of the shoulder. Associated symptoms-after fall: Denies abdominal pain, chest pain, confusion or headache(s) Review of Systems Const: Denies: fever(s), malaise or diaphoresis Card: Denies: chest pain, palpitations or syncope Resp: Denies: dyspnea GI: Denies: abdominal pain, nausea or vomiting Skin/Breast: Denies: rash Neuro: Denies: headache(s) or confusion PFS ED PFSH: Medical History Arthritis of left acromioclavicular joint CAD (coronary artery disease) Chronic constipation Chronic pain Dementia Hypertensive emergency Lewy body dementia Lower urinary tract symptoms (LUTS) Non-ST elevation AR (NSTEMI) 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 Tamia Foley. Bilateral L3-L4 hemilaminotomy/foraminotomy, with limited discectomy. Bilateral L2-L3 laminotomy/foraminotomy. Family History Grandmother CAD (coronary artery disease) Cancer Myocardial infarct Family/Other Hypertension Mother , at age 95 No problems noted. Father , at age 39 Blood clot associated with vein wall inflammation Social History Smoking and tobacco status: never smoked Alcohol intake: never Household members: family and children Marital status: / Current occupational status: retired History of recent travel: No Physical Exam Const: COMMON NORMALS: no acute distress, alert and well nourished GENERAL APPEARANCE: cooperative and comfortable ORIENTATION/CONSCIOUSNESS: Yes awake HENMT: COMMON NORMALS: normocephalic HEAD & SCALP: normocephalic OTHER: Patient has some soft tissue swelling to the right periorbital area with ecchymosis. No hyphema. Extraocular movements are intact and full. Eye: COMMON NORMALS: EOMs intact bilaterally and conjunctivae normal CONJUNCTIVA: Yes conjunctivae normal Neck/C-Spine: GENERAL: Yes normal visual inspection Chest: COMMONS NORMALS: normal inspection of the chest Resp: COMMON NORMALS: normal respiratory effort, No retractions and No use of accessory muscles Extremity: COMMON NORMALS: normal to inspection, full ROM and no pedal edema NARRATIVE EXTREMITY EXAM: Patient reports some mild tenderness to palpation to the anterior aspect of the right shoulder. No ecchymosis or swelling. No crepitance. Patient has full range of motion of the right shoulder and is neurovascularly intact distally. Neuro: COMMON NORMALS: no focal motor deficits SENSORIUM/ORIENTATION: Yes alert Course Vital Signs: Vital signs: Vital Signs Temperature 98.8 F 01/02/23 19:52 Pulse Rate 64 01/02/23 21:36 Respiratory Rate 16 01/02/23 21:36 Blood Pressure 179/93 01/02/23 21:36 Pulse Oximetry 95 01/02/23 21:36 Oxygen Delivery Me thod 01/02/23 21:36 MDM - Fall Medical Decision Making Patient is an 82-year-old male with fairly advanced Parkinson's disease who presents after a fall today. He sustained contusion to the right side of his face and has some right periorbital ecchymosis. He also reports some mild tende rness along the right anterior shoulder but has full range of motion and is neurovascularly intact. Head CT does not show any acute intracranial processes. Facial CT does not show any acute fracture of the facial bones. He does have some moderate right periorbital contusion and small hematoma. Shoulder x-ray shows no acute findings. Radiology does mention possible findings concerning for rotator cuff injury however I have low suspicion of this given his full range of motion active and passive and no significant pain. I will recommend supportive care and follow-up with his PCP. Patient and family were given strict return precautions given his history of anticoagulation and head injury and advised to return to the ER should he develop any increasing headache, vomiting, confusion, lethargy, or any other concerns. Patient and family are comfortable with discharge home and he has reliable caregiver at home that can keep a close eye on him. Lab Data Radiology Impressions Face CT 01/02/23 20:07 IMPRESSION: 1. No acute fracture of the facial bones. 2. Moderate right periorbital contusion/small hematoma. 3. Mild mucoperiosteal thickening in the the right and left paranasal sinuses. 4. Incidental/nonacute findings are listed in the report. Head CT 01/02/23 20:07 IMPRESSION: 1. No acute intracranial abnormality. 2. Moderate age-related changes. Shoulder X-Ray 01/02/23 20:07 IMPRESSION: 1. No acute fracture of the right shoulder. Followup imaging recommended in 7-14 days if clinical concern for fracture persists. 2. Superior subluxation of the right humeral head. Findings raise suspicion for a rotator cuff tear. 3. Moderate degenerative change at the right shoulder. 4. Incidental/nonacute findings are listed in the report. Discharge Plan Discharge Patient Disposition: Home Clinical Impression: Closed head injury, Contusion of face, Contusion of right shoulder region, Parkinson's disease Condition: Stable Prescriptions: No Action Stool Softener 50 mg capsule 50 - 100 mg PO DAILY PRN (Reason: Constipation) oxybutynin chloride 5 mg tablet 5 mg PO BID carboxymethylcellulose sodium 1 % drops, liquid gel 1 drp ophthalmic (eye) BID PRN (Reason: Dry Eye(S)) coenzyme Q10 [Co Q-10] 200 mg capsule 200 mg PO QAM nitroglycerin 0.4 mg tablet, sublingual 0.4 mg sublingual Q5M PRN (Reason: chest pain) Qty: 25 3RF Rx Instructions: do not exceed 3 doses per episode carbidopa-levodopa 25-100 mg tablet 2 tab PO BID Qty: 540 3RF Rx Instructions: 2 tabs at 9am, noon, and 4pm galantamine 4 mg tablet 4 mg PO BID 90 Days Qty: 180 3RF Rx Instructions: administer with AM and PM meals Celexa 40 mg tablet 20 mg PO BEDTIME Qty: 90 3RF pantoprazole 40 mg tablet,delayed release (DR/EC) 40 mg PO DAILY Qty: 30 1RF quetiapine [Seroquel] 25 mg tablet 25 mg PO DAILY Qty: 30 3RF Rx Instructions: Take 1 tablet at night (pt not started as of 06/29/22) cholecalciferol (vitamin D3) [Vitamin D3] 25 mcg (1,000 unit) Tablet 75 mcg PO QAM polyethylene glycol 3350 [Miralax] 17 gram powder in packet 17 g PO DAILY PRN (Reason: Constipation) Tylenol Extra Strength 500 mg tablet 1,000 mg PO BID PRN (Reason: pain) Lidocaine Viscous 2 % solution See Rx Instructions .ROUTE .COMPLEX Rx Instructions: use as directed prn isosorbide mononitrate 30 mg tablet extended release 24 hr 15 mg PO BEDTIME Plavix 75 mg Tablet 75 mg PO QAM aspirin 81 mg Tablet,Delayed Release (Dr/Ec) 81 mg PO QAM Thc Gummies 1 tab PO DAILY Turmeric-Curcumin With Sunshine 500 mg PO DAILY Discharge Orders: Discharge ED (Routine); Ordered 01/02/23 Ordered By: Chris Martin Referrals: Minnie Coello MD [Primary Care Provider] - Discharge Activity: Increase activity as tolerated Patient Instructions: Opioid Safety, Pain Management Coding Level of Care Code ED [employer] St[employer] 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
--- NOTE | 2023-01-02 20:07 | CTR_ITS ---
PROCEDURE INFORMATION: Exam: CT Maxillofacial Without Contrast Exam date and time: 01/02/2023 8:38 PM Age: 82 years old Clinical indication: Injury or trauma; Blunt trauma (contusions or hematomas) and other: PT on blood thinners; Cheek bone; Patient HX: PT C/O headache and posterior neck pain S/P fall. PT has bruising, swelling, and abrasions around right eye where he hit his face. No loc. Positive blood thinners. ; Additional info: Facial trauma TECHNIQUE: Imaging protocol: Computed tomography of the face without contrast. Sagittal and coronal reformatted images were created and reviewed. Radiation optimization: All CT scans at this facility use at least one of these dose optimization techniques: automated exposure control; mA and/or kV adjustment per patient size (includes targeted exams where dose is matched to clinical indication); or iterative reconstruction. Other protocol: This patient has received 2 known CTs and 0 known cardiac nuclear medicine studies in the 12 months prior to the current study. COMPARISON: CT head wo con* [id number] 06/29/2022 7:41 PM RADIATION DOSE METRICS: Total DLP (mGy-cm): 605.9 FINDINGS: Orbital cavities: Globes and lenses, extraocular muscles, and optic nerves are intact bilaterally. No acute intraorbital abnormality. Bones/joints: Right and left temporomandibular joints are intact. Right and left pterygoid plates are intact. Multilevel degenerative changes of varying severity in the visualized spine. No acute fracture. Bones are diffusely osteopenic. Paranasal sinuses: Mild mucoperiosteal thickening in the the right and left paranasal sinuses. Other paranasal sinuses are clear. Mastoid air cells: Mastoid air cells are clear bilaterally. Soft tissues: Moderate right periorbital contusion/small hematoma. No radiopaque foreign body. Vasculature: Atherosclerotic changes in the visualized arteries. CT/CT facial bones wo con* [id number] IMPRESSION: 1. No acute fracture of the facial bones. 2. Moderate right periorbital contusion/small hematoma. 3. Mild mucoperiosteal thickening in the the right and left paranasal sinuses. 4. Incidental/nonacute findings are listed in the report.
--- NOTE | 2023-01-02 20:07 | CTR_ITS ---
PROCEDURE INFORMATION: Exam: CT Head Without Contrast Exam date and time: 01/02/2023 8:38 PM Age: 82 years old Clinical indication: Injury or trauma; Other: Pain/on blood thinners; Injury details: PT C/O headache and posterior neck pain S/P fall. PT has bruising, swelling, and abrasions around right eye where he hit his face. No loc. Positive blood thinners. Patient HX: Parkinson's; Lewy body. PT loses his balance easily. ; Additional info: Head injury TECHNIQUE: Imaging protocol: Computed tomography of the head without contrast. Radiation optimization: All CT scans at this facility use at least one of these dose optimization techniques: automated exposure control; mA and/or kV adjustment per patient size (includes targeted exams where dose is matched to clinical indication); or iterative reconstruction. Other protocol: This patient has received 2 known CTs and 0 known cardiac nuclear medicine studies in the 12 months prior to the current study. COMPARISON: CT head wo con* [id number] 06/29/2022 7:41 PM RADIATION DOSE METRICS: Total DLP (mGy-cm): 1077.2 FINDINGS: Brain: No focal hemorrhage or midline shift is identified. The ventricles and parenchyma show moderate atrophy and chronic bicerebral white matter ischemic change. Cerebral ventricles: No ventriculomegaly or evidence of hydrocephalus. Paranasal sinuses: No evidence of acute sinusitis. Mastoid air cells: Visualized mastoid air cells are well aerated. Bones/joints: No displaced skull fracture is noted. Soft tissues: Unremarkable. Vasculature: Diffuse vascular calcifications are present. CT/CT head wo con* [id number] IMPRESSION: 1. No acute intracranial abnormality. 2. Moderate age-related changes.
--- NOTE | 2023-01-02 20:07 | XRR_ITS ---
PROCEDURE INFORMATION: Exam: XR Right Shoulder Exam date and time: 01/02/2023 8:26 PM Age: 82 years old Clinical indication: Pain and injury or trauma; Fall; Blunt trauma (contusions or hematomas); Shoulder; Right TECHNIQUE: Imaging protocol: Radiologic exam of the Right shoulder. Views: 2 or more views. COMPARISON: CR (CHEST, ) 06/29/2022 6:40 PM FINDINGS: Bones/joints: Multilevel degenerative changes of varying severity in the visualized spine. No acute fracture. No dislocation. Bones are diffusely osteopenic. Moderate osteophytes with loss of joint space height at the right glenohumeral joint. Moderate hypertrophy at the right acromioclavicular joint. Superior subluxation of the right humeral head. Findings raise suspicion for a rotator cuff tear. Lungs: The right lung is clear. Soft tissues: No soft tissue swelling. No radiopaque foreign body. XR/XR shoulder RT min 2V* [id number] IMPRESSION: 1. No acute fracture of the right shoulder. Followup imaging recommended in 7-14 days if clinical concern for fracture persists. 2. Superior subluxation of the right humeral head. Findings raise suspicion for a rotator cuff tear. 3. Moderate degenerative change at the right shoulder. 4. Incidental/nonacute findings are listed in the report.
[2023-01-02 20:16] VITALS: BP 191/96; PULSE 61; RESP 14; O2SAT 97
[2023-01-02 21:36] VITALS: BP 179/93; PULSE 64; RESP 16; O2SAT 95
--- NOTE | 2023-01-02 21:37 | PC.NURSE ---
Assisted pt to restroom via scooter chair. Pt tolerated well.
--- NOTE | 2023-01-02 21:57 | PC.NURSE ---
Ice provided for pt to place on eye.
[2023-01-02 22:08] VITALS: BP 182/94; PULSE 62; RESP 16; O2SAT 96
[2023-01-02 22:16] VITALS: BP 182/94; PULSE 62; RESP 16; O2SAT 96
== END 2023-01-02 22:18 | disposition home or self-care (01) ==
PROVIDERS: Emergency Provider Student in an Organized Health Care Education/Training Program; PCP Family Medicine
DX: S09.8XXA Other specified injuries of head, initial encounter (principal); S40.011A Contusion of right shoulder, initial encounter; S00.83XA Contusion of other part of head, initial encounter; G20 Parkinson's disease; Z91.81 History of falling; W18.39XA Other fall on same level, initial encounter; I25.10 Atherosclerotic heart disease of native coronary artery without angina pectoris; F02.80 Dementia in other diseases classified elsewhere, unspecified severity, without behavioral disturbance, psychotic disturbance, mood disturbance, and anxiety; I25.2 Old myocardial infarction; Z85.46 Personal history of malignant neoplasm of prostate; Z79.82 Long term (current) use of aspirin; Z79.02 Long term (current) use of antithrombotics/antiplatelets
CPT/HCPCS: 12345; 70450; 70486; 73030; 99284

== ENCOUNTER 2023-01-06 09:30 | Emergency (ER) | payer OTHER, SELFPAY ==
[2023-01-06 09:32] VITALS: BP 121/77; PULSE 79; RESP 18; TEMP 36.7; O2SAT 96; BMI 26.6
--- NOTE | 2023-01-06 09:47 | ECG_ITS ---
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 Measurements Intervals [place] Rate: 85 P: 45 DC: 172 QRS: -47 QRSD: 132 T: 24 QT: 420 QTc: 501 Interpretive Statements SINUS RHYTHM WITH OCCASIONAL ECTOPIC PREMATURE COMPLEXES RIGHT BUNDLE BRANCH BLOCK [120+ ms QRS DURATION, UPRIGHT V1, 40+ ms S IN I/aVL/V4/V5/V6] LEFT ANTERIOR FASCICULAR BLOCK [QRS AXIS <= -45, QR IN I, RS IN II] POSSIBLE SEPTAL MYOCARDIAL INFARCTION , PROBABLY OLD [30 ms Q WAVE IN V1/V2] Compared to ECG 06/30/2022 18:12:20 Left anterior fascicular block now present Myocardial infarct finding now present Sinus bradycardia no longer present Electronically Signed On 01-06-2023 20:02:44 DOWEL MACHINE OPERATOR by Julia Silva M.D. [id number]
--- NOTE | 2023-01-06 10:21 | CT_ITS ---
WS: [id number] CT CERVICAL SPINE HISTORY: fall TECHNIQUE: Contiguous 2.5 mm axial imaging performed through the entire cervical spine. Sagittal and coronal reformats also performed. All CT scans at [facility] use at least one of these dose o ptimization techniques: automated exposure control; mA and/or kV adjustment per patient size (include s targeted exams where dose is matched to clinical indication); or iterative reconstruction. DLP: 1396.34 mGy.cm COMPARISON: None available. Mild straightening of the normal cervical lordosis and curvature. Diffuse osteopenia. Moderate disc s pace narrowing and vertebral body osteophytosis. There is partial ankylosis across the LEFT C3 and C4 facet joint. Craniocervical junction is normally aligned. Lateral masses of C1 and C2 are aligned. O dontoid is intact. C2-C3: Severe LEFT foraminal stenosis due to osteophyte and facet disease. C3-C4: Severe LEFT foraminal stenosis due to osteophyte and facet disease. C4-C5: Mild foraminal stenosis. Severe left-sided facet arthritis. C5-C6: Osteophytic ridging with bilateral foraminal stenosis, LEFT greater than RIGHT. C6-C7: Mild foraminal stenosis. C7-T1: Normal. Lung apices are clear. No paravertebral abnormalities are identified. CT/CT cervical spin wo con* [id number] IMPRESSION: 1. No acute cervical spine fracture. 2. Multilevel facet joint arthritis and stenosis as above.
--- NOTE | 2023-01-06 10:22 | CT_ITS ---
WS: [id number] CT HEAD NONCONTRAST HISTORY: Fall TECHNIQUE: Contiguous axial imaging performed through the brain in 2.5 mm imaging. Bone and soft tiss ue windows. Sagittal and coronal reformats reviewed. All CT scans at [facility] use at least one of these dose optimization techniques: automated exposure control; mA and/or kV adjustment per pa tient size (includes targeted exams where dose is matched to clinical indication); or iterative recon struction. DLP: 1396.34 mGy.cm COMPARISON: 01/02/2023 No acute intracranial hemorrhage, midline shift or mass effect. Moderate atrophy with moderate small vessel ischemic changes throughout the white matter. No prior in farcts. No sulcal effacement. Ventricles: Normal size with no hydrocephalus. No inferior displacement of cerebellar tonsils. Paranasal sinuses: As visualized are clear. Mastoid air cells: Well pneumatized. Calvarium and scalp: Skull is intact with no soft tissue edema or swelling. CT/CT head wo con* [id number] IMPRESSION: 1. No acute intracranial hemorrhage or edema. 2. Moderate atrophy and small vessel ischemic disease. Similar to the prior st udy of 01/02/2023. No new infarct or edema.
--- NOTE | 2023-01-06 10:34 | ED_ITS ---
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 Tamia Foley. Bilateral L3-L4 hemilaminotomy/foraminotomy, with limited discectomy. Bilateral L2-L3 laminotomy/foraminotomy. Family History Grandmother CAD (coronary artery disease) Cancer Myocardial infarct Family/Other Hypertension Mother , at age 95 No problems noted. Father , at age 39 Blood clot associated with vein wall inflammation Social History Smoking and tobacco status: never smoked Alcohol intake: never Household members: family and children Marital status: / Current occupational status: retired History of recent travel: No Course Vital Signs: Vital signs: Vital Signs Temperature 98.1 F 01/06/23 09:32 Pulse Rate 79 01/06/23 09:32 Respiratory Rate 18 01/06/23 09:32 Blood Pressure 121/77 01/06/23 09:32 Pulse Oximetry 96 01/06/23 09:32 Oxygen Delivery Me thod 01/06/23 09:32 Discharge Plan Discharge Condition: Stable Prescriptions: No Action Stool Softener 50 mg capsule 50 - 100 mg PO DAILY PRN (Reason: Constipation) oxybutynin chloride 5 mg tablet 5 mg PO BID carboxymethylcellulose sodium 1 % drops, liquid gel 1 drp ophthalmic (eye) BID PRN (Reason: Dry Eye(S)) coenzyme Q10 [Co Q-10] 200 mg capsule 200 mg PO QAM nitroglycerin 0.4 mg tablet, sublingual 0.4 mg sublingual Q5M PRN (Reason: chest pain) Qty: 25 3RF Rx Instructions: do not exceed 3 doses per episode carbidopa-levodopa 25-100 mg tablet 2 tab PO BID Qty: 540 3RF Rx Instructions: 2 tabs at 9am, noon, and 4pm galantamine 4 mg tablet 4 mg PO BID 90 Days Qty: 180 3RF Rx Instructions: administer with AM and PM meals Celexa 40 mg tablet 20 mg PO BEDTIME Qty: 90 3RF pantoprazole 40 mg tablet,delayed release (DR/EC) 40 mg PO DAILY Qty: 30 1RF quetiapine [Seroquel] 25 mg tablet 25 mg PO DAILY Qty: 30 3RF Rx Instructions: Take 1 tablet at night (pt not started as of 06/29/22) cholecalciferol (vitamin D3) [Vitamin D3] 25 mcg (1,000 unit) Tablet 75 mcg PO QAM polyethylene glycol 3350 [Miralax] 17 gram powder in packet 17 g PO DAILY PRN (Reason: Constipation) Tylenol Extra Strength 500 mg tablet 1,000 mg PO BID PRN (Reason: pain) Lidocaine Viscous 2 % solution See Rx Instructions .ROUTE .COMPLEX Rx Instructions: use as directed prn isosorbide mononitrate 30 mg tablet extended release 24 hr 15 mg PO BEDTIME Plavix 75 mg Tablet 75 mg PO QAM aspirin 81 mg Tablet,Delayed Release (Dr/Ec) 81 mg PO QAM Thc Gummies 1 tab PO DAILY Turmeric-Curcumin With Sunshine 500 mg PO DAILY Referrals: Minnie Coello MD [Primary Care Provider] - Coding Level of Care Code ED Plc Controls Engineer for Krystyna Antony
--- NOTE | 2023-01-06 10:44 | ED_ITS ---
HPI - General Adult General: Chief complaint: Altered Mental Status Stated complaint: fall/AMS Time Seen by Provider: 01/06/23 10:17 Source: patient Mode of arrival: ambulatory History of Present Illness: 82-year-old male presents emergency room has had several falls. He had 3 or 4 last night. He has some Parkinson's some mild cognitive deficits his p.o. intake has been decreased. He lives with his daughter. He has had several falls recently was seen here after 1 he is a significant mount of ecchymosis around the right eye he did hit his head last night when he fell there is no loss consciousness no vomiting. He did not take his carbidopa levodopa this morning and his tremors little worse than usual. No other symptoms at this time. Onset (ago): week(s) Location: head and face Relieving factors: none Exacerbating factors: none Associated symptoms: Reports weakness; Deny chest pain, confusion, cough, diaphoresis, decreased appetite, dyspnea, fevers/chills, headache(s), nausea, rash, palpitations, seizures, short of breath, syncope or vomiting Treatments prior to arrival: none Review of Systems Const: Reports: fatigue; Denies: fever(s), chills or diaphoresis ENMT: Denies: throat pain, ear or mastoid pain, nasal discharge or nasal c ongestion Card: Denies: chest pain, palpitations, irregular heart rhythm, edema or syncope Resp: Denies: dyspnea, productive cough or change in phlegm color GI: Denies: abdominal pain, nausea or vomiting : Denies: flank pain, dysuria, urinary frequency or urinary urgency Skin/Breast: Denies: rash Neuro: Denies: headache(s) or confusion PFSH ED PFSH: Medical History Arthritis of left acromioclavicular joint CAD (coronary artery disease) Chronic constipation Chronic pain Dementia Hypertensive emergency Lewy body dementia Lower urinary tract symptoms (LUTS) Non-ST elevation [place] (NSTEMI) 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 Tamia Foley. Bilateral L3-L4 hemilaminotomy/foraminotomy, with limited discectomy. Bilateral L2-L3 laminotomy/foraminotomy. Family History Grandmother CAD (coronary artery disease) Cancer Myocardial infarct Family/Other Hypertension Mother , at age 95 No problems noted. Father , at age 39 Blood clot associated with vein wall inflammation Social History Smoking and tobacco status: never smoked Alcohol intake: never Household members: family and children Marital status: / Current occupational status: retired History of recent travel: No Course Vital Signs: Vital signs: Vital Signs Temperature 98.1 F 01/06/23 09:32 Pulse Rate 68 01/06/23 14:46 Respiratory Rate 18 01/06/23 14:46 Blood Pressure 154/66 01/06/23 14:46 Pulse Oximetry 97 01/06/23 14:46 Oxygen Delivery Me thod 01/06/23 09:32 MDM - General Adult Medical Decision Making Recurrent falls Parkinson's no fractures Labs and imaging reviewed discussed with patient we will discharge patient home follow-up with primary care continue regular medications. Follow-up with Dr. Cotto as scheduled. Medical Records I reviewed the patient's medical records. Lab Data I reviewed the patient's lab results. 01/06/23 10:40 01/06/23 10:40 Radiology Impressions Cervical Spine CT 01/06/23 10:21 IMPRESSION: 1. No acute cervical spine fracture. 2. Multilevel facet joint arthritis and stenosis as above. Head CT 01/06/23 10:22 IMPRESSION: 1. No acute intracranial hemorrhage or edema. 2. Moderate atrophy and small vessel ischemic disease. Similar to the prior study of 01/02/2023. No new infarct or edema. Laboratory Results WBC 9.8 10^3/uL (4.0-10.0) 01/06/23 10:40 RBC 4.57 10^6/uL (4.1-5.3) 01/06/23 10:40 Hgb 14.6 g/dL (11.7-16.6) 01/06/23 10:40 Hct 44.3 % (42.0-52.0) 01/06/23 10:40 MCV 96.9 fl (80-94) H 01/06/23 10:40 MCH 31.9 pg (28.0-34.0) 01/06/23 10:40 MCHC 33.0 g/dL (30.0-36.0) 01/06/23 10:40 RDW 12.8 % (12.1-15.1) 01/06/23 10:40 Plt Count 174 10^3/cmm (130-400) 01/06/23 10:40 MPV 10.3 fL (7.4-10.4) 01/06/23 10:40 Neut % (Auto) 76.7 % 01/06/23 10:40 Lymph % (Auto) 14.4 % 01/06/23 10:40 Bremer % (Auto) 7.3 % 01/06/23 10:40 Eos % (Auto) 0.8 % 01/06/23 10:40 Baso % (Auto) 0.5 % 01/06/23 10:40 Neut # (Auto) 7.49 10^3/uL (1.8-7.7) 01/06/23 10:40 Lymph # (Auto) 1.4 10^3/uL (0.8-4.8) 01/06/23 10:40 Bremer # (Auto) 0.7 10^3/uL (0.2-0.9) 01/06/23 10:40 Eos # (Auto) 0.1 10^3/uL (0.0-0.8) 01/06/23 10:40 Baso # (Auto) 0.1 10^3/uL (0.0-0.1) 01/06/23 10:40 Nucleated RBC % (auto) 0 % 01/06/23 10:40 Nucleated RBCs # 0.0 /100WBC 01/06/23 10:40 Sodium 136 mmol/L (136-145) 01/06/23 10:40 Potassium 4.2 mmol/L (3.5-5.1) 01/06/23 10:40 Chloride 101 mmol/L (98-107) 01/06/23 10:40 Carbon Dioxide 23 mmol/L (22-29) 01/06/23 10:40 Anion Gap 16.2 (5-19) 01/06/23 10:40 BUN 24 mg/dL (8-23) H 01/06/23 10:40 Creatinine 1.2 mg/dL (0.7-1.2) 01/06/23 10:40 GFR Calculation Not Reportable 01/06/23 10:40 Glucose 102 mg/dL (65-115) 01/06/23 10:40 Calculated Osmolality 286 mOsm/kg (285-295) 01/06/23 10:40 Calcium 9.2 mg/dL (8.5-10.5) 01/06/23 10:40 Total Bilirubin 0.7 mg/dL (0.15-1.2) 01/06/23 10:40 AST 12 U/L (0-40) 01/06/23 10:40 ALT 13 U/L (0-41) 01/06/23 10:40 Alkaline Phosphatase 101 U/L (40-130) 01/06/23 10:40 Total Protein 7.2 g/dL (6.6-8.7) 01/06/23 10:40 Albumin 4.4 g/dL (3.5-5.2) 01/06/23 10:40 Globulin 2.8 g/dL (1.3-4.6) 01/06/23 10:40 Urine Color Yellow (Yellow) 01/06/23 13:26 Urine Appearance Clear (CLEAR) 01/06/23 13:26 Urine pH 5 (5-7) 01/06/23 13:26 Ur Specific Kirkman 1.020 (1.005-1.030) 01/06/23 13:26 Urine Protein Neg (Negative) 01/06/23 13:26 Urine Glucose (UA) Norm (Normal) 01/06/23 13:26 Urine Ketones Negative (Negative) 01/06/23 13:26 Urine Blood Neg (Negative) 01/06/23 13:26 Urine Nitrate Negative (Negative) 01/06/23 13:26 Urine Bilirubin Neg (Negative) 01/06/23 13:26 Urine Urobilinogen 1 mg/dL (Negative) H 01/06/23 13:26 Ur Leukocyte Esterase Negative (Negative) 01/06/23 13:26 Discharge Plan Discharge Patient Disposition: Home Clinical Impression: Falls frequently, Parkinson's disease Condition: Stable Prescriptions: No Action Stool Softener 50 mg capsule 50 - 100 mg PO DAILY PRN (Reason: Constipation) oxybutynin chloride 5 mg tablet 5 mg PO BID carboxymethylcellulose sodium 1 % drops, liquid gel 1 drp ophthalmic (eye) BID PRN (Reason: Dry Eye(S)) coenzyme Q10 [Co Q-10] 200 mg capsule 200 mg PO QAM nitroglycerin 0.4 mg tablet, sublingual 0.4 mg sublingual Q5M PRN (Reason: chest pain) Qty: 25 3RF Rx Instructions: do not exceed 3 doses per episode galantamine 4 mg tablet 4 mg PO BID 90 Days Qty: 180 3RF Rx Instructions: administer with AM and PM meals Celexa 40 mg tablet 20 mg PO BEDTIME Qty: 90 3RF pantoprazole 40 mg tablet,delayed release (DR/EC) 40 mg PO DAILY Qty: 30 1RF cholecalciferol (vitamin D3) [Vitamin D3] 25 mcg (1,000 unit) Tablet 75 mcg PO QAM polyethylene glycol 3350 [Miralax] 17 gram powder in packet 17 g PO DAILY PRN (Reason: Constipation) Tylenol Extra Strength 500 mg tablet 1,000 mg PO BID isosorbide mononitrate 30 mg tablet extended release 24 hr 15 mg PO BEDTIME clopidogrel [Plavix] 75 mg Tablet 75 mg PO QAM aspirin 81 mg Tablet,Delayed Release (Dr/Ec) 81 mg PO QAM Thc Gummies 1 tab PO DAILY carbidopa-levodopa 25-100 mg tablet 2 tab PO TID Rx Instructions: 2 tabs at 9am, noon, and 4pm Discharge Orders: Discharge ED (Routine); Ordered 01/06/23 Ordered By: Bright Aden Referrals: Minnie Coello MD [Primary Care Provider] - Discharge Diet: Usual diet Discharge Activity: Increase activity as tolerated Patient Instructions: Opioid Safety, Pain Management Activity Restrictions/Additional Instructions: You are seen today for falls. Your exam showed tremor consistent with your Parkinson's. Other lab work was relatively unremarkable. Continue current [facility] follow-up with Dr. Cotto as previously scheduled or sooner if you are able. Coding Level of Care Code ED Multimedia Engineer for Krystyna Antony
[2023-01-06 10:51] LABS: Basophils # 0.1 10^3/uL (0.0-0.1); Basophils % 0.5 %; Eosinophils # 0.1 10^3/uL (0.0-0.8); Eosinophils % 0.8 %; Hematocrit 44.3 % (42.0-52.0); Hemoglobin 14.6 g/dL (11.7-16.6); Lymphocytes # 1.4 10^3/uL (0.8-4.8); Lymphocytes % 14.4 %; Mean Corpuscular Hemoglobin 31.9 pg (28.0-34.0); Mean Corpuscular Volume 96.9 fl (80-94); Mean Platelet Volume 10.3 fL (7.4-10.4); Monocytes # 0.7 10^3/uL (0.2-0.9); Monocytes % 7.3 %; Neutrophils # 7.49 10^3/uL (1.8-7.7); Neutrophils % 76.7 %; Nucleated Red Blood Cells % 0 %; Platelet Count 174 10^3/cmm (130-400); Red Blood Count 4.57 10^6/uL (4.1-5.3); Red Cell Distribution Width 12.8 % (12.1-15.1); White Blood Count 9.8 10^3/uL (4.0-10.0)
[2023-01-06] MEDS: carbidopa-levodopa 25-100mg Tablet 1 EACH PO (11:02)
[2023-01-06 11:10] LABS: Alanine Aminotransferase 13 U/L (0-41); Albumin Level 4.4 g/dL (3.5-5.2); Alkaline Phosphatase 101 U/L (40-130); Anion Gap 16.2 (5-19); Aspartate Amino Transferase 12 U/L (0-40); Blood Urea Nitrogen 24 mg/dL (8-23); Calcium 9.2 mg/dL (8.5-10.5); Carbon Dioxide 23 mmol/L (22-29); Chloride 101 mmol/L (98-107); Globulin 2.8 g/dL (1.3-4.6); Glucose 102 mg/dL (65-115); Osmolality Calculated 286 mOsm/kg (285-295); Potassium 4.2 mmol/L (3.5-5.1); Sodium 136 mmol/L (136-145); Total Bilirubin 0.7 mg/dL (0.15-1.2); Total Protein 7.2 g/dL (6.6-8.7)
[2023-01-06 13:49] LABS: Add Urine Microscopic? NO; Charge for UA Resulting for Rev
[2023-01-06] MEDS: sodium chloride 0.9% 1,000 ML 999 ML IV (14:00)
[2023-01-06 14:04] LABS: Bilirubin Urine Neg (Negative); Blood Urine Neg (Negative); Glucose Urine UA Norm (Normal); Ketones Urine Negative (Negative); Leukocyte Esterase Urine Negative (Negative); Nitrate Urine Negative (Negative); Protein Urine Neg (Negative); Urine Appearance Clear (CLEAR); Urine Color Yellow (Yellow); Urobilinogen Urine 1 mg/dL (Negative); pH Urine 5 (5-7)
[2023-01-06 14:46] VITALS: BP 154/66; PULSE 68; RESP 18; O2SAT 97
== END 2023-01-06 14:54 | disposition home or self-care (01) ==
PROVIDERS: Emergency Provider Family Medicine; PCP Family Medicine
DX: G20 Parkinson's disease (principal); Z91.81 History of falling; S05.11XA Contusion of eyeball and orbital tissues, right eye, initial encounter; W19.XXXA Unspecified fall, initial encounter
CPT/HCPCS: 36415; 70450; 72125; 80053; 81003; 85025; 93005; 99285; J7030

== ENCOUNTER → 2023-01-24 09:57 | Outpatient (BNVA) | payer OTHER, SELFPAY | PROVIDERS: PCP Family Medicine; Visit Provider Specialist | DX: G20 Parkinson's disease (principal); M54.81 Occipital neuralgia; F02.82 Dementia in other diseases classified elsewhere, unspecified severity, with psychotic disturbance | CPT/HCPCS: 99214 ==

== ENCOUNTER 2023-02-17 18:47 | Emergency (ER) | payer OTHER, SELFPAY ==
[2023-02-17 18:57] VITALS: BP 114/75; PULSE 84; RESP 18; TEMP 36.3; O2SAT 98
--- NOTE | 2023-02-17 19:34 | XRR_ITS ---
PROCEDURE INFORMATION: Exam: XR Thoracic Spine Exam date and time: 02/17/2023 8:04 PM Age: 83 years old Clinical indication: Pain in thoracic spine; Other: Unknown; Additional info: Pain and bruising after fall TECHNIQUE: Imaging protocol: Radiologic exam of the thoracic spine. Views: 3 views. COMPARISON: CR XR chest 1V portable [id number] 06/29/2022 6:40 PM FINDINGS: Bones/joints: Multilevel osteophytes with ossification of anterior longitudinal ligament . No acute bony findings. Soft tissues: Unremarkable. XR/XR thoracic spine 3V* [id number] IMPRESSION: No acute findings.
--- NOTE | 2023-02-17 19:34 | XRR_ITS ---
PROCEDURE INFORMATION: Exam: XR Lumbosacral Spine Exam date and time: 02/17/2023 8:06 PM Age: 83 years old Clinical indication: Low back pain; Additional info: Pain and bruising after fall TECHNIQUE: Imaging protocol: Radiologic exam of the lumbosacral spine. Views: 2 or 3 views. COMPARISON: CR XR lumbar spine 2-3V* [id number] 08/25/2020 12:23 PM FINDINGS: Tubes, catheters and devices: Brachytherapy seeds noted at expected level prostate. Bones/joints: Degenerative disc changes similar to previous study. No acute bony findings. Soft tissues: Unremarkable. XR/XR lumbar spine 2-3V* [id number] IMPRESSION: No acute findings.
--- NOTE | 2023-02-17 19:34 | XRR_ITS ---
PROCEDURE INFORMATION: Exam: XR Left Knee Exam date and time: 02/17/2023 7:53 PM Age: 83 years old Clinical indication: Pain; Knee; Bilateral; Additional info: Knee pain after fall TECHNIQUE: Imaging protocol: Radiologic exam of the left knee. Views: 3 views. COMPARISON: No relevant prior studies available. FINDINGS: Bones/joints: Normal. Soft tissues: Vascular calcifications. XR/XR knee LT 3V* [id number] IMPRESSION: No acute findings.
--- NOTE | 2023-02-17 19:34 | XRR_ITS ---
PROCEDURE INFORMATION: Exam: XR Right Knee Exam date and time: 02/17/2023 7:57 PM Age: 83 years old Clinical indication: Pain; Knee; Bilateral; Additional info: Knee pain after fall TECHNIQUE: Imaging protocol: Radiologic exam of the right knee. Views: 3 views. COMPARISON: No relevant prior studies available. FINDINGS: Bones/joints: No acute bony findings. Soft tissues: Short filamentous radiopacity projected at infrapatellar fat pad can be correlated for foreign body or material overlying the patient. XR/XR knee RT 3V* [id number] IMPRESSION: Short filamentous radiopacity projected at infrapatellar fat pad can be correlated for foreign body or material overlying the patient. Otherwise, no acute findings.
[2023-02-17 20:10] LABS: Basophils % 0.4 %; Eosinophils # 0.1 10^3/uL (0.0-0.8); Eosinophils % 1.4 %; Hematocrit 41.1 % (42.0-52.0); Hemoglobin 13.5 g/dL (11.7-16.6); Lymphocytes # 1.8 10^3/uL (0.8-4.8); Lymphocytes % 24.7 %; Mean Corpuscular HGB Conc 32.8 g/dL (30.0-36.0); Mean Corpuscular Hemoglobin 31.8 pg (28.0-34.0); Mean Corpuscular Volume 96.7 fl (80-94); Mean Platelet Volume 10.2 fL (7.4-10.4); Monocytes # 0.5 10^3/uL (0.2-0.9); Monocytes % 7.4 %; Neutrophils # 4.84 10^3/uL (1.8-7.7); Neutrophils % 65.8 %; Nucleated Red Blood Cells % 0 %; Platelet Count 197 10^3/cmm (130-400); Red Blood Count 4.25 10^6/uL (4.1-5.3); Red Cell Distribution Width 13.1 % (12.1-15.1); White Blood Count 7.3 10^3/uL (4.0-10.0)
[2023-02-17] MEDS: acetaminophen 325 mg Tablet 650 MG PO (20:26)
[2023-02-17 20:41] LABS: Alanine Aminotransferase 7 U/L (0-41); Albumin Level 4.1 g/dL (3.5-5.2); Alkaline Phosphatase 134 U/L (40-130); Aspartate Amino Transferase 12 U/L (0-40); Blood Urea Nitrogen 30 mg/dL (8-23); Calcium 8.9 mg/dL (8.5-10.5); Carbon Dioxide 19 mmol/L (22-29); Chloride 104 mmol/L (98-107); Globulin 2.4 g/dL (1.3-4.6); Glucose 125 mg/dL (65-115); Osmolality Calculated 294 mOsm/kg (285-295); Sodium 138 mmol/L (136-145); Total Bilirubin 0.3 mg/dL (0.15-1.2); Total Protein 6.5 g/dL (6.6-8.7)
--- NOTE | 2023-02-17 21:01 | ED_ITS ---
Documented by User: [email or web address] Davenport 02/18/23 01:04 HPI - Fall General: Chief Complaint: Fall Stated Complaint: Fall-Bruises BP abnormal Time Seen by Provider: 02/17/23 19:15 History of Present Illness: Patient is in today, brought by family. Patient's daughter states that patient has had 6 falls that she knows of in the past week. She reports that patient has Parkinson's and falls. She reports that patient has bruising on his back and has complained of bilateral knee pain. Daughter reports that she has not witnessed the patient hit his head but he is on blood thinners. She reports that he has not had any neurologic changes out of the ordinary for him. She reports that he is always in and out of whether or not he is lucid. She reports that they were concerned because his blood pressure has been lower the last couple days than typical. [facility] states [facility] likely needed to get a [facility] of his abdomen to make sure he does not have internal bleeding since he is on blood thinners. She offers that the patient has not had a fall in the past 24 hours. Associated symptoms-after fall: Reports confusion (Chronic intermittent); Denies abdominal pain or chest pain Review of Systems Const: Denies: fever(s) or chills Card: Denies: chest pain or palpitations Resp: Denies: dyspnea or productive cough GI: Denies: abdominal pain, nausea, vomiting, hematemesis, hematochezia or melena Musc: Reports: back pain and extremity pain Skin/Breast: Reports: other (Bruising) Neuro: Reports: frequent falls and confusion (Chronic intermittent) [facility] ED PFSH: Medical History Arthritis of left acromioclavicular joint CAD (coronary artery disease) Chronic constipation Chronic pain Dementia Hypertensive emergency Lewy body dementia Lower urinary tract symptoms (LUTS) Non-ST elevation OK (NSTEMI) 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 Tamia Foley. Bilateral L3-L4 hemilaminotomy/foraminotomy, with limited discectomy. Bilateral L2-L3 laminotomy/foraminotomy. Family History Grandmother CAD (coronary artery disease) Cancer Myocardial infarct Family/Other Hypertension Mother , at age 95 No problems noted. Father , at age 39 Blood clot associated with vein wall inflammation Social History Smoking and tobacco status: never smoked Alcohol intake: never Household members: family and children Marital status: / Current occupational status: retired Physical Exam Const: COMMON NORMALS: no acute distress, healthy appearing and alert OTHER: Patient is pleasant and cooperative. He is oriented to person and occasionally situation but that is not consistent tonight Neck/C-Spine: COMMON NORMALS: full ROM, no meningeal signs and no JVD Resp: COMMON NORMALS: normal respiratory effort, No use of accessory muscles and clear to auscultation bilaterally AUSCULTATION: clear to auscultation bilaterally Cardio: COMMON NORMALS: no JVD, regular rate, regular rhythm, S1 normal heart sound present and S2 normal heart sound present RATE: regular rate RHYTHM: regular rhythm HEART SOUNDS: S1 normal heart sound present and S2 normal heart sound present GI: COMMON NORMALS: Normal to inspection, nondistended, normoactive bowel sounds present, Soft to palpation, non-tender, no masses and no bruits PALPATION: Yes Soft to palpation Back/Pelvis: OTHER: Some yellowish colored bruising noted to the right upper back near the scapula and also at the right shoulder. Family reports that is from a previous fall. There is 1 small pea-sized bruise on the right lumbar region just above the buttocks. No obvious bony deformity. No vertebral point tenderness to palpation. Extremity: NARRATIVE EXTREMITY EXAM: Patient complains of pain bilateral knees. Left knee slightly swollen no erythema or warmth. Patient is able to bear weight on the legs. Flexion extension are intact. There is mild tenderness to palpation of bilateral anterior knees. Neuro: COMMON NORMALS: CN's II-XII intact bilaterally, moves all extremities, no focal motor deficits (Patient has tremors bilateral upper extremities) and gait normal (Gait is slow and forward flexed) SENSORIUM/ORIENTATION: Yes alert MENINGEAL SIGNS: Yes no meningeal signs Course Vital Signs: Vital signs: Vital Signs Temperature 97.4 F L 02/17/23 18:57 Pulse Rate 63 02/17/23 21:35 Respiratory Rate 18 02/17/23 18:57 Blood Pressure 114/75 02/17/23 18:57 Pulse Oximetry 96 02/17/23 21:35 Oxygen Delivery Me thod 02/17/23 18:57 MDM - Fall Medical Decision Making This is an 83-year-old gentleman with a history of Lewy body dementia patient lives at home with his daughter who provides the majority of his care. Family is reporting that he has had increased falling over the past couple of weeks. He has not had any falls in the past 24 hours however when [facility] his blood pressure systolic was 102 w hich the daughter reports is abnormal for him. The daughter reports that the [facility] to come [facility] to have a CT scan of his abdomen to make sure he is not bleeding in his abdomen. The patient has no complaints of pain anywhere except for his knee bilateral and the bruise on his low back. Patient's abdomen is soft, nontender. His labs do not show a drop in hemoglobin that would be consistent or concerning for acute hemorrhage or internal bleeding. Patient does not show any signs of weakness or motor loss on 1 side versus the other. Symmetrical facial movements noted. Patient is in and out of orientation and family reports that is his baseline. They deny that he has had any neurologic change from his baseline over the past 24 to 48 hours. Nobody saw the patient hit his head and he has not had a fall in the past 24 hours. At this point I do not feel that a CT head is indicated. X-rays of both knees lumbar and thoracic spine given the bruising noted and the patient's complaint of pain over the bruising. All x-rays did not show any acute findings. Patient was given T ylenol while in the ER and reported pain control. A lengthy discussion was held with patient and his daughter. I asked if they had considered in-home help given the patient is falling so frequently. Daughter is working with a service to try and give her some relief. I encouraged them to follow-up with her primary care provider to continue discussions on fall prevention and home care for this patient. Patient is discharged home in stable condition. Daughter is agreeable with plan of care. All questions are answered to satisfaction. Lab Data 02/17/23 19:47 02/17/23 19:47 Radiology Impressions Knee X-Ray 02/17/23 19:34 IMPRESSION: Short filamentous radiopacity projected at infrapatellar fat pad can be correlated for foreign body or material overlying the patient. Otherwise, no acute findings. Lumbar Spine X-Ray 02/17/23 19:34 IMPRESSION: No acute findings. Thoracic Spine X-Ray 02/17/23 19:34 IMPRESSION: No acute findings. Laboratory Results WBC 7.3 10^3/uL (4.0-10.0) 02/17/23 19:47 RBC 4.25 10^6/uL (4.1-5.3) 02/17/23 19:47 Hgb 13.5 g/dL (11.7-16.6) 02/17/23 19:47 Hct 41.1 % (42.0-52.0) L 02/17/23 19:47 MCV 96.7 fl (80-94) H 02/17/23 19:47 MCH 31.8 pg (28.0-34.0) 02/17/23 19:47 MCHC 32.8 g/dL (30.0-36.0) 02/17/23 19:47 RDW 13.1 % (12.1-15.1) 02/17/23 19:47 Plt Count 197 10^3/cmm (130-400) 02/17/23 19:47 MPV 10.2 fL (7.4-10.4) 02/17/23 19:47 Neut % (Auto) 65.8 % 02/17/23 19:47 Lymph % (Auto) 24.7 % 02/17/23 19:47 [place] % (Auto) 7.4 % 02/17/23 19:47 Eos % (Auto) 1.4 % 02/17/23 19:47 Baso % (Auto) 0.4 % 02/17/23 19:47 Neut # (Auto) 4.84 10^3/uL (1.8-7.7) 02/17/23 19:47 Lymph # (Auto) 1.8 10^3/uL (0.8-4.8) 02/17/23 19:47 [place] # (Auto) 0.5 10^3/uL (0.2-0.9) 02/17/23 19:47 Eos # (Auto) 0.1 10^3/uL (0.0-0.8) 02/17/23 19:47 Baso # (Auto) 0.0 10^3/uL (0.0-0.1) 02/17/23 19:47 Nucleated RBC % (auto) 0 % 02/17/23 19:47 Nucleated RBCs # 0.0 /100WBC 02/17/23 19:47 Sodium 138 mmol/L (136-145) 02/17/23 19:47 Potassium 4.0 mmol/L (3.5-5.1) 02/17/23 19:47 Chloride 104 mmol/L (98-107) 02/17/23 19:47 Carbon Dioxide 19 mmol/L (22-29) L 02/17/23 19:47 Anion Gap 19.0 (5-19) 02/17/23 19:47 BUN 30 mg/dL (8-23) H 02/17/23 19:47 Creatinine 1.2 mg/dL (0.7-1.2) 02/17/23 19:47 GFR Calculation Not Reportable 02/17/23 19:47 Glucose 125 mg/dL (65-115) H 02/17/23 19:47 Calculated Osmolality 294 mOsm/kg (285-295) 02/17/23 19:47 Calcium 8.9 mg/dL (8.5-10.5) 02/17/23 19:47 Total Bilirubin 0.3 mg/dL (0.15-1.2) 02/17/23 19:47 AST 12 U/L (0-40) 02/17/23 19:47 ALT 7 U/L (0-41) 02/17/23 19:47 Alkaline Phosphatase 134 U/L (40-130) H 02/17/23 19:47 Total Protein 6.5 g/dL (6.6-8.7) L 02/17/23 19:47 Albumin 4.1 g/dL (3.5-5.2) 02/17/23 19:47 Globulin 2.4 g/dL (1.3-4.6) 02/17/23 19:47 Discharge Plan Discharge Patient Disposition: Home Clinical Impression: LBD (Lewy body dementia), Fall, Knee pain, Back pain, Unsteady gait Condition: Stable Prescriptions: No Action Stool Softener 50 mg capsule 50 - 100 mg PO DAILY PRN (Reason: Constipation) oxybutynin chloride 5 mg tablet 5 mg PO BID carboxymethylcellulose sodium 1 % drops, liquid gel 1 drp ophthalmic (eye) BID PRN (Reason: Dry Eye(S)) coenzyme Q10 [Co Q-10] 200 mg capsule 200 mg PO QAM carbidopa-levodopa 25-100 mg tablet 1.5 tab PO TID Rx Instructions: 1.5 tabs at 9am, noon, and 4pm galantamine 4 mg tablet 8 mg PO BID 90 Days Qty: 360 3RF Rx Instructions: administer with AM and PM meals watch for nausea Celexa 40 mg tablet 20 mg PO BEDTIME Qty: 90 3RF nitroglycerin 0.4 mg tablet, sublingual 0.4 mg sublingual Q5M PRN (Reason: chest pain) Qty: 25 3RF Rx Instructions: do not exceed 3 doses per episode pantoprazole 40 mg tablet,delayed release (DR/EC) 40 mg PO DAILY Qty: 30 1RF cholecalciferol (vitamin D3) [Vitamin D3] 25 mcg (1,000 unit) Tablet 75 mcg PO QAM polyethylene glycol 3350 [Miralax] 17 gram powder in packet 17 g PO DAILY PRN (Reason: Constipation) Tylenol Extra Strength 500 mg tablet 1,000 mg PO BID isosorbide mononitrate 30 mg tablet extended release 24 hr 15 mg PO BEDTIME clopidogrel [Plavix] 75 mg Tablet 75 mg PO QAM aspirin 81 mg Tablet,Delayed Release (Dr/Ec) 81 mg PO QAM Thc Gummies 1 tab PO DAILY Discharge Orders: Discharge ED (Routine); Ordered 02/17/23 Ordered By: Anika Carney Referrals: Minnie Coello MD [Primary Care Provider] - Patient Instructions: Knee Pain (ED), Fall Prevention (ED) Activity Restrictions/Additional Instructions: Your imaging did not show any abnormalities or fractures today. Your labs did not indicate any acute blood loss or anemia. I recommend conservative treatment for knee and back pain. I recommend that you follow-up with your primary care provider to discuss further accommodations and ways to prevent falls at home. 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 Tamia Foley. Bilateral L3-L4 hemilaminotomy/foraminotomy, with limited discectomy. Bilateral L2-L3 laminotomy/foraminotomy. Family History Grandmother CAD (coronary artery disease) Cancer Myocardial infarct Family/Other Hypertension Mother , at age 95 No problems noted. Father , at age 39 Blood clot associated with vein wall inflammation Social History Smoking and tobacco status: never smoked Alcohol intake: never Household members: family and children Marital status: / Current occupational status: retired Course Vital Signs: Vital signs: Vital Signs Temperature 97.4 F L 02/17/23 18:57 Pulse Rate 63 02/17/23 21:35 Respiratory Rate 18 02/17/23 18:57 Blood Pressure 114/75 02/17/23 18:57 Pulse Oximetry 96 02/17/23 21:35 Oxygen Delivery Me thod 02/17/23 18:57 MDM - Fall Medical Decision Making This is an 83-year-old gentleman with a history of Lewy body dementia patient lives at home with his daughter who provides the majority of his care. Family is reporting that he has had increased falling over the past couple of weeks. He has not had any falls in the past 24 hours however [facility] his increased [facility] his blood pressure systolic was 102 which the daughter reports is abnormal for him. The daughter reports that the [facility] come [facility] to have a CT scan of his abdomen to make sure he is not bleeding in his abdomen. The patient has no complaints of pain anywhere except for his knee bilateral and the bruise on his low back. Patient's abdomen is soft, nontender. His labs do not show a drop in hemoglobin that would be consistent or concerning for acute hemorrhage or internal bleeding. Patient does not show any signs of weakness or motor loss on 1 side versus the other. Symmetrical facial movements noted. Patient is in and out of orientation and family reports that is his baseline. They deny that he has had any neurologic change from his baseline over the past 24 to 48 hours. Nobody saw the patient hit his head and he has not had a fall in the past 24 hours. At this point I do not feel that a CT head is indicated. X-rays of both knees lumbar and thoracic spine given the bruising noted and the patient's complaint of pain over the brui sing. All x-rays did not show any acute findings. Patient was given Tylenol while in the ER and reported pain control. A lengthy discussion was held with patient and his daughter. I asked if they had considered in-home help given the patient is falling so frequently. Daughter is working with a service to try and give her some relief. I encouraged them to follow-up with her primary care provider to continue discussions on fall prevention and home care for this patient. Patient is discharged home in stable condition. Daughter is agreeable with plan of care. All questions are answered to satisfaction. Chart reviewed and patient discussed with midlevel. Agree with assessment and plan. Lab Data 02/17/23 19:47 02/17/23 19:47 Radiology Impressions Knee X-Ray 02/17/23 19:34 IMPRESSION: Short filamentous radiopacity projected at infrapatellar fat pad can be correlated for foreign body or material overlying the patient. Otherwise, no acute findings. Lumbar Spine X-Ray 02/17/23 19:34 IMPRESSION: No acute findings. Thoracic Spine X-Ray 02/17/23 19:34 IMPRESSION: No acute findings. Laboratory Results WBC 7.3 10^3/uL (4.0-10.0) 02/17/23 19:47 RBC 4.25 10^6/uL (4.1-5.3) 02/17/23 19:47 Hgb 13.5 g/dL (11.7-16.6) 02/17/23 19:47 Hct 41.1 % (42.0-52.0) L 02/17/23 19:47 MCV 96.7 fl (80-94) H 02/17/23 19:47 MCH 31.8 pg (28.0-34.0) 02/17/23 19:47 MCHC 32.8 g/dL (30.0-36.0) 02/17/23 19:47 RDW 13.1 % (12.1-15.1) 02/17/23 19:47 Plt Count 197 10^3/cmm (130-400) 02/17/23 19:47 MPV 10.2 fL (7.4-10.4) 02/17/23 19:47 Neut % (Auto) 65.8 % 02/17/23 19:47 Lymph % (Auto) 24.7 % 02/17/23 19:47 [place] % (Auto) 7.4 % 02/17/23 19:47 Eos % (Auto) 1.4 % 02/17/23 19:47 Baso % (Auto) 0.4 % 02/17/23 19:47 Neut # (Auto) 4.84 10^3/uL (1.8-7.7) 02/17/23 19:47 Lymph # (Auto) 1.8 10^3/uL (0.8-4.8) 02/17/23 19:47 [place] # (Auto) 0.5 10^3/uL (0.2-0.9) 02/17/23 19:47 Eos # (Auto) 0.1 10^3/uL (0.0-0.8) 02/17/23 19:47 Baso # (Auto) 0.0 10^3/uL (0.0-0.1) 02/17/23 19:47 Nucleated RBC % (auto) 0 % 02/17/23 19:47 Nucleated RBCs # 0.0 /100WBC 02/17/23 19:47 Sodium 138 mmol/L (136-145) 02/17/23 19:47 Potassium 4.0 mmol/L (3.5-5.1) 02/17/23 19:47 Chloride 104 mmol/L (98-107) 02/17/23 19:47 Carbon Dioxide 19 mmol/L (22-29) L 02/17/23 19:47 Anion Gap 19.0 (5-19) 02/17/23 19:47 BUN 30 mg/dL (8-23) H 02/17/23 19:47 Creatinine 1.2 mg/dL (0.7-1.2) 02/17/23 19:47 GFR Calculation Not Reportable 02/17/23 19:47 Glucose 125 mg/dL (65-115) H 02/17/23 19:47 Calculated Osmolality 294 mOsm/kg (285-295) 02/17/23 19:47 Calcium 8.9 mg/dL (8.5-10.5) 02/17/23 19:47 Total Bilirubin 0.3 mg/dL (0.15-1.2) 02/17/23 19:47 AST 12 U/L (0-40) 02/17/23 19:47 ALT 7 U/L (0-41) 02/17/23 19:47 Alkaline Phosphatase 134 U/L (40-130) H 02/17/23 19:47 Total Protein 6.5 g/dL (6.6-8.7) L 02/17/23 19:47 Albumin 4.1 g/dL (3.5-5.2) 02/17/23 19:47 Globulin 2.4 g/dL (1.3-4.6) 02/17/23 19:47 Discharge Plan Discharge Patient Disposition: Home Clinical Impression: LBD (Lewy body dementia), Fall, Knee pain, Back pain, Unsteady gait Condition: Stable Prescriptions: No Action Stool Softener 50 mg capsule 50 - 100 mg PO DAILY PRN (Reason: Constipation) oxybutynin chloride 5 mg tablet 5 mg PO BID carboxymethylcellulose sodium 1 % drops, liquid gel 1 drp ophthalmic (eye) BID PRN (Reason: Dry Eye(S)) coenzyme Q10 [Co Q-10] 200 mg capsule 200 mg PO QAM carbidopa-levodopa 25-100 mg tablet 1.5 tab PO TID Rx Instructions: 1.5 tabs at 9am, noon, and 4pm galantamine 4 mg tablet 8 mg PO BID 90 Days Qty: 360 3RF Rx Instructions: administer with AM and PM meals watch for nausea Celexa 40 mg tablet 20 mg PO BEDTIME Qty: 90 3RF nitroglycerin 0.4 mg tablet, sublingual 0.4 mg sublingual Q5M PRN (Reason: chest pain) Qty: 25 3RF Rx Instructions: do not exceed 3 doses per episode pantoprazole 40 mg tablet,delayed release (DR/EC) 40 mg PO DAILY Qty: 30 1RF cholecalciferol (vitamin D3) [Vitamin D3] 25 mcg (1,000 unit) Tablet 75 mcg PO QAM polyethylene glycol 3350 [Miralax] 17 gram powder in packet 17 g PO DAILY PRN (Reason: Constipation) Tylenol Extra Strength 500 mg tablet 1,000 mg PO BID isosorbide mononitrate 30 mg tablet extended release 24 hr 15 mg PO BEDTIME clopidogrel [Plavix] 75 mg Tablet 75 mg PO QAM aspirin 81 mg Tablet,Delayed Release (Dr/Ec) 81 mg PO QAM Thc Gummies 1 tab PO DAILY Discharge Orders: Discharge ED (Routine); Ordered 02/17/23 Ordered By: Anika Carney Referrals: Minnie Coello MD [Primary Care Provider] - Patient Instructions: Knee Pain (ED), Fall Prevention (ED) Activity Restrictions/Additional Instructions: Your imaging did not show any abnormalities or fractures today. Your labs did not indicate any acute blood loss or anemia. I recommend conservative treatment for knee and back pain. I recommend that you follow-up with your primary care provider to discuss further accommodations and ways to prevent falls at home. Return to the ER as needed for any new or worsening symptoms Coding Level of Care Code ED [employer] for Krystyna Antony
[2023-02-17 21:35] VITALS: PULSE 63; O2SAT 96
== END 2023-02-17 21:36 | disposition home or self-care (01) ==
PROVIDERS: Emergency Provider Nurse Practitioner Family; PCP Family Medicine
DX: G31.83 Neurocognitive disorder with Lewy bodies (principal); F02.80 Dementia in other diseases classified elsewhere, unspecified severity, without behavioral disturbance, psychotic disturbance, mood disturbance, and anxiety; R26.81 Unsteadiness on feet; W18.30XA Fall on same level, unspecified, initial encounter; M25.562 Pain in left knee; M25.561 Pain in right knee; M54.9 Dorsalgia, unspecified; Z79.82 Long term (current) use of aspirin; Z79.02 Long term (current) use of antithrombotics/antiplatelets; G20 Parkinson's disease; I25.10 Atherosclerotic heart disease of native coronary artery without angina pectoris; I25.2 Old myocardial infarction; Z85.46 Personal history of malignant neoplasm of prostate; Z92.3 Personal history of irradiation
CPT/HCPCS: 72072; 72100; 73562; 80053; 85025; 99284

== ENCOUNTER → 2023-03-17 10:54 | Outpatient (BNVA) | payer OTHER, SELFPAY | PROVIDERS: PCP Family Medicine; Visit Provider Specialist | DX: R55 Syncope and collapse (principal); I10 Essential (primary) hypertension; Z79.82 Long term (current) use of aspirin | CPT/HCPCS: 99214 ==

== ENCOUNTER 2023-03-28 13:04 | Emergency (ER) | payer OTHER, SELFPAY ==
[2023-03-28 13:11] VITALS: BP 118/65; PULSE 82; RESP 16; TEMP 36.4; O2SAT 96; BMI 25.3
--- NOTE | 2023-03-28 13:44 | XRR_ITS ---
PROCEDURE INFORMATION: Exam: XR Chest Exam date and time: 03/28/2023 2:13 PM Age: 83 years old Clinical indication: Cough and dyspnea; Additional info: Dyspnea/cough TECHNIQUE: Imaging protocol: Radiologic exam of the chest. Views: 1 view. COMPARISON: CR XR chest 1V portable [id number] 06/29/2022 6:40 PM FINDINGS: Lungs: Unremarkable. No consolidation. Pleural spaces: Unremarkable. No pleural effusion. No pneumothorax. Heart/Mediastinum: Unremarkable. No cardiomegaly. Bones/joints: Unremarkable. XR/XR chest 1V portable [id number] IMPRESSION: No acute findings.
--- NOTE | 2023-03-28 14:07 | ED_ITS ---
HPI - Syncope General: Chief Complaint: Syncope Stated Complaint: passed out at restuarant Time Seen by Provider: 03/28/23 13:43 Source: patient and family Mode of arrival: ambulatory History of Present Illness: 83-year-old male with a known history of Parkinson disease presents emergency room complaining of having a syncopal episode. He had been sitting at a restaurant for 45 minutes to an hour he got up to go to the car on the way to the car he got lightheaded and dizzy and his family was able to catch him and lowered him to the ground. He had similar episodes like this in the past triage actually hit his head. They thought he was out for period of time before responding he feels very weak now. There is no tonic-clonic movements he is not having loss of bowel or bladder control during this episode. They did increase his Sinemet about 2 weeks ago currently he is on 25/102 tablets p.o. 3 times daily. He is also on isosorbide mononitrate 15 mg nightly. He has been reporting generalized weakness and dizziness for the last couple weeks it seems to have increased. MD complaint: loss of consciousness Onset (ago): minute(s) Prodromal symptoms: lightheaded Witnessed: Yes - by Bystander Context: standing up Injuries sustained associated with event: none Associated symptoms: Deny abdominal pain, chest pain, fever(s), headache(s), lightheadedness, nausea, short of breath, vertigo or weakness Treatments prior to arrival: none Review of Systems Const: Denies: fever(s), chills, fatigue or malaise ENMT: Denies: throat pain, ear or mastoid pain, nasal discharge or nasal congestion Card: Denies: chest pain or lightheadedness Resp: Denies: dyspnea, productive cough or non-productive cough GI: Denies: abdominal pain or nausea : Denies: flank pain, dysuria, urinary frequency or urinary urgency Skin/Breast: Denies: rash or pruritus Neuro: Denies: headache(s) or vertigo PFS ED PFSH: Medical History Arthritis of left acromioclavicular joint CAD (coronary artery disease) Chronic constipation Chronic pain Dementia Hypertensive emergency Lewy body dementia Lower urinary tract symptoms (LUTS) Non-ST elevation MS (NSTEMI) 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 Tamia Foley. Bilateral L3-L4 hemilaminotomy/foraminotomy, with limited discectomy. Bilateral L2-L3 laminotomy/foraminotomy. Family History Grandmother CAD (coronary artery disease) Cancer Myocardial infarct Family/Other Hypertension Mother , at age 95 No problems noted. Father , at age 39 Blood clot associated with vein wall inflammation Social History Smoking and tobacco status: never smoked Alcohol intake: never Substance/Drug Use: never Household members: family and children Marital status: / Current occupational status: retired Physical Exam Const: GENERAL APPEARANCE: cooperative and comfortable ORIENTATION/CONSCIOUSNESS: Yes awake, Yes oriented to person, Yes oriented to place and Yes oriented to time HENMT: COMMON NORMALS: normocephalic, atraumatic and hearing grossly normal bilaterally HEAD & SCALP: normocephalic and atraumatic Resp: COMMON NORMALS: normal respiratory effort, No retractions, No use of accessory muscles and clear to auscultation bilaterally AUSCULTATION: clear to auscultation bilaterally Cardio: COMMON NORMALS: regular rate, regular rhythm and No murmurs present (Cardio) RATE: regular rate RHYTHM: regular rhythm GI: COMMON NORMALS: Soft to palpation and No hepatosplenomegaly present AUSCULTATION: Yes normoactive bowel sounds PALPATION: Yes Soft to palpation, No Tenderness to palpation present (GI), No Guarding due to palpation present (GI) and Yes No hepatosplenomegaly present Extremity: COMMON NORMALS: normal to inspection, capillary refill normal, no clubbing, cyanosis or edema, no calf tenderness and no pedal edema Neuro: SENSORIUM/ORIENTATION: Yes oriented to person, Yes oriented to place and Yes oriented to time Skin: COMMON NORMALS: no rashes or lesions noted GENERAL SKIN EXAM: no rashes or lesions noted Course Vital Signs: Vital signs: Vital Signs Temperature 97.6 F 03/28/23 13:11 Pulse Rate 74 03/28/23 18:20 Respiratory Rate 16 03/28/23 13:11 Blood Pressure 122/66 03/28/23 18:20 Pulse Oximetry 95 03/28/23 18:20 Oxygen Delivery Me thod Room Air 03/28/23 17:00 MDM - Syncope Medical Decision Making After fluids and rest patient is better he is able to ambulate with a walker which is what he usually uses at home. He is still significantly orthostatic after the fluids however he is not particularly symptomatic of it. Blood pressures reviewed was at the bedside is a nurse was taking them. I discussed with the family. Has not been having any chest pain and recent he is on a very low-dose of isosorbide mononitrate it may be worthwhile to hold that for a time and only use sublingual nitro if he has chest discomfort. Discussed this is part of the progression and side effects of his Sinemet and with his Shy-Drager and Parkinson's with the family. Recommend they follow-up with her primary care doctor or Dr. Cotto within the next 7 to 10 days return for further problems. There are no signs of acute stroke no intracranial hemorrhage. Medical Records I reviewed the patient's medical records. Lab Data I reviewed the patient's lab results. 03/28/23 13:57 03/28/23 13:57 Radiology Impressions Chest X-Ray 03/28/23 13:44 IMPRESSION: No acute findings. Head CT 03/28/23 14:23 IMPRESSION: 1. No acute intracranial abnormality. 2. Cerebral volume loss and ventriculomegaly appropriate for age 3. Otherwise negative examination Laboratory Results WBC 6.9 10^3/uL (4.0-10.0) 03/28/23 13:57 RBC 4.39 10^6/uL (4.1-5.3) 03/28/23 13:57 Hgb 13.7 g/dL (11.7-16.6) 03/28/23 13:57 Hct 42.0 % (42.0-52.0) 03/28/23 13:57 MCV 95.7 fl (80-94) H 03/28/23 13:57 MCH 31.2 pg (28.0-34.0) 03/28/23 13:57 MCHC 32.6 g/dL (30.0-36.0) 03/28/23 13:57 RDW 13.1 % (12.1-15.1) 03/28/23 13:57 Plt Count 173 10^3/cmm (130-400) 03/28/23 13:57 MPV 10.6 fL (7.4-10.4) H 03/28/23 13:57 Neut % (Auto) 75.3 % 03/28/23 13:57 Lymph % (Auto) 17.4 % 03/28/23 13:57 [place] % (Auto) 5.7 % 03/28/23 13:57 Eos % (Auto) 0.9 % 03/28/23 13:57 Baso % (Auto) 0.4 % 03/28/23 13:57 Neut # (Auto) 5.20 10^3/uL (1.8-7.7) 03/28/23 13:57 Lymph # (Auto) 1.2 10^3/uL (0.8-4.8) 03/28/23 13:57 [place] # (Auto) 0.4 10^3/uL (0.2-0.9) 03/28/23 13:57 Eos # (Auto) 0.1 10^3/uL (0.0-0.8) 03/28/23 13:57 Baso # (Auto) 0.0 10^3/uL (0.0-0.1) 03/28/23 13:57 Nucleated RBC % (auto) 0 % 03/28/23 13:57 Nucleated RBCs # 0.0 /100WBC 03/28/23 13:57 Sodium 134 mmol/L (136-145) L 03/28/23 13:57 Potassium 3.9 mmol/L (3.5-5.1) 03/28/23 13:57 Chloride 100 mmol/L (98-107) 03/28/23 13:57 Carbon Dioxide 20 mmol/L (22-29) L 03/28/23 13:57 Anion Gap 17.9 (5-19) 03/28/23 13:57 BUN 32 mg/dL (8-23) H 03/28/23 13:57 Creatinine 1.2 mg/dL (0.7-1.2) 03/28/23 13:57 GFR Calculation Not Reportable 03/28/23 13:57 Glucose 140 mg/dL (65-115) H 03/28/23 13:57 Calculated Osmolality 287 mOsm/kg (285-295) 03/28/23 13:57 Calcium 9.0 mg/dL (8.5-10.5) 03/28/23 13:57 Total Bilirubin 0.7 mg/dL (0.15-1.2) 03/28/23 13:57 AST 12 U/L (0-40) 03/28/23 13:57 ALT 16 U/L (0-41) 03/28/23 13:57 Alkaline Phosphatase 106 U/L (40-130) 03/28/23 13:57 Troponin T Baseline 18 ng/L (0-15) H 03/28/23 13:57 Troponin T 120 Minute 15 ng/L (0-15) 03/28/23 16:47 Delta Troponin T -3 ABS# (0-10) L 03/28/23 16:47 Total Protein 6.7 g/dL (6.6-8.7) 03/28/23 13:57 Albumin 4.1 g/dL (3.5-5.2) 03/28/23 13:57 Globulin 2.6 g/dL (1.3-4.6) 03/28/23 13:57 Discharge Plan Discharge Patient Disposition: Home Clinical Impression: Orthostatic hypotension, Shy-Drager syndrome, Lewy body dementia, Parkinson disease Condition: Stable Prescriptions: No Action Stool Softener 50 mg capsule 50 - 100 mg PO DAILY PRN (Reason: Constipation) oxybutynin chloride 5 mg tablet 5 mg PO BID carboxymethylcellulose sodium 1 % drops, liquid gel 1 drp ophthalmic (eye) BID PRN (Reason: Dry Eye(S)) Celexa 40 mg tablet 20 mg PO BEDTIME Qty: 90 3RF carbidopa-levodopa 25-100 mg tablet 2 tab PO BID@08,12 nitroglycerin 0.4 mg tablet, sublingual 0.4 mg sublingual Q5M PRN (Reason: chest pain) Qty: 25 3RF Rx Instructions: do not exceed 3 doses per episode cholecalciferol (vitamin D3) [Vitamin D3] 25 mcg (1,000 unit) Tablet 75 mcg PO QAM polyethylene glycol 3350 [Miralax] 17 gram powder in packet 17 g PO DAILY PRN (Reason: Constipation) Tylenol Extra Strength 500 mg tablet 1,000 mg PO BID PRN (Reason: Pain) isosorbide mononitrate 30 mg tablet extended release 24 hr 15 mg PO BEDTIME clopidogrel [Plavix] 75 mg Tablet 75 mg PO QAM aspirin 81 mg Tablet,Delayed Release (Dr/Ec) 81 mg PO QAM Thc Gummies 0.5 tab PO DAILY miconazole nitrate 2 % Powder See Rx Instructions .ROUTE .COMPLEX Rx Instructions: apply topically three times a day as needed for fungal infection or to rectum Pepcid 20 mg Tablet 20 mg PO BID PRN (Reason: Heartburn) Lidocaine Viscous 2 % Solution See Rx Instructions .ROUTE .COMPLEX Rx Instructions: mix with water and use as directed as needed zinc oxide 40 % Ointment 1 applic TOPICAL DAILY galantamine 4 mg tablet 4 mg PO BID Rx Instructions: administer with AM and PM meals watch for nausea pantoprazole 40 mg tablet,delayed release (DR/EC) 40 mg PO DAILY@12 Discharge Orders: Discharge ED (Routine); Ordered 03/28/23 Ordered By: Bright Aden Referrals: Minnie Coello MD [Primary Care Provider] - Discharge Diet: Usual diet Discharge Activity: Increase activity as tolerated Patient Instructions: Opioid Safety, Pain Management Activity Restrictions/Additional Instructions: You are seen today after syncopal episode. Suspected cause is multifactorial. Orthostasis Parkinson's and Shy-Drager syndrome. Recommend using your walker whenever you are ambulating. Follow-up with Dr. Cotto within the next 1 to 2 weeks to review your overall condition. Coding Level of Care Code ED Employment Law Specialist for Krystyna Antony
[2023-03-28 14:14] LABS: Basophils % 0.4 %; Eosinophils # 0.1 10^3/uL (0.0-0.8); Eosinophils % 0.9 %; Hemoglobin 13.7 g/dL (11.7-16.6); Lymphocytes # 1.2 10^3/uL (0.8-4.8); Lymphocytes % 17.4 %; Mean Corpuscular HGB Conc 32.6 g/dL (30.0-36.0); Mean Corpuscular Hemoglobin 31.2 pg (28.0-34.0); Mean Corpuscular Volume 95.7 fl (80-94); Mean Platelet Volume 10.6 fL (7.4-10.4); Monocytes # 0.4 10^3/uL (0.2-0.9); Monocytes % 5.7 %; Neutrophils % 75.3 %; Nucleated Red Blood Cells % 0 %; Platelet Count 173 10^3/cmm (130-400); Red Blood Count 4.39 10^6/uL (4.1-5.3); Red Cell Distribution Width 13.1 % (12.1-15.1); White Blood Count 6.9 10^3/uL (4.0-10.0)
--- NOTE | 2023-03-28 14:23 | CTR_ITS ---
PROCEDURE INFORMATION: Exam: CT Head Without Contrast Exam date and time: 03/28/2023 2:48 PM Age: 83 years old Clinical indication: Altered mental status/memory loss; Additional info: AMS TECHNIQUE: Imaging protocol: Computed tomography of the head without contrast. Radiation optimization: All CT scans at this facility use at least one of these dose optimization techniques: automated exposure control; mA and/or kV adjustment per patient size (includes targeted exams where dose is matched to clinical indication); or iterative reconstruction. REPORTING DATA: Count of CT and Cardiac NM exams in prior 12 months: This patient has received 5 known CTs and 0 known cardiac nuclear medicine studies in the 12 months prior to the current study. COMPARISON: CT head wo con* [id number] 01/06/2023 10:48 AM RADIATION DOSE METRICS: Total DLP (mGy-cm): 1016 FINDINGS: Brain: Cerebral volume loss appropriate for age.. No hemorrhage. Unremarkable white matter. No mass effect. Cerebral ventricles: Moderate ventriculomegaly appropriate for age. Paranasal sinuses: Visualized sinuses are unremarkable. No fluid levels. Mastoid air cells: Visualized mastoid air cells are well aerated. Bones/joints: Unremarkable. No acute fracture. Soft tissues: Unremarkable. Other findings: Comparison to prior brain CT examination similar findings are seen CT/CT head wo con* [id number] IMPRESSION: 1. No acute intracranial abnormality. 2. Cerebral volume loss and ventriculomegaly appropriate for age 3. Otherwise negative examination
[2023-03-28 14:29] LABS: Alanine Aminotransferase 16 U/L (0-41); Albumin Level 4.1 g/dL (3.5-5.2); Alkaline Phosphatase 106 U/L (40-130); Anion Gap 17.9 (5-19); Aspartate Amino Transferase 12 U/L (0-40); Blood Urea Nitrogen 32 mg/dL (8-23); Carbon Dioxide 20 mmol/L (22-29); Chloride 100 mmol/L (98-107); Globulin 2.6 g/dL (1.3-4.6); Glucose 140 mg/dL (65-115); Osmolality Calculated 287 mOsm/kg (285-295); Potassium 3.9 mmol/L (3.5-5.1); Sodium 134 mmol/L (136-145); Total Bilirubin 0.7 mg/dL (0.15-1.2); Total Protein 6.7 g/dL (6.6-8.7)
--- NOTE | 2023-03-28 14:32 | PC.PHAR ---
faxed [facility] for med list
[2023-03-28 15:10] VITALS: BP 120/83; BP 143/72; PULSE 70; PULSE 73
[2023-03-28 15:16] VITALS: BP 150/68; PULSE 68; O2SAT 95
--- NOTE | 2023-03-28 16:20 | PC.PHAR ---
pts verified pts medications-pts states the pt takes carbidopa-levodopa 25-100 takes 2 tabs bid rx written for 2 tabs tid-pts states the pt takes galantamine 4mg bid rx written for 8mg bid-pts states the pts ranolazine er 500mg daily was dced [facility]-
[2023-03-28 16:30] VITALS: BP 166/80; PULSE 68; O2SAT 95
--- NOTE | 2023-03-28 16:48 | ECG_ITS ---
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 Measurements Intervals [place] Rate: 71 P: 76 ND: 181 QRS: -18 QRSD: 132 T: 37 QT: 416 QTc: 453 Interpretive Statements SINUS RHYTHM RIGHT BUNDLE BRANCH BLOCK [120+ ms QRS DURATION, UPRIGHT V1, 40+ ms S IN I/aVL/V4/V5/V6] POSSIBLE SEPTAL MYOCARDIAL INFARCTION , PROBABLY OLD [30 ms Q WAVE IN V1/V2] Compared to ECG 01/06/2023 09:47:50 Left anterior fascicular block no longer present Myocardial infarct finding still present Electronically Signed On 03-28-2023 17:17:52 CDT by Moy Yee M.D. [id number]
[2023-03-28] MEDS: sodium chloride 0.9% 500 ML 999 ML IV (16:49)
[2023-03-28 17:00] VITALS: PULSE 68; O2SAT 96
[2023-03-28 17:24] LABS: Troponin 5 2HR 15 ng/L (0-15)
[2023-03-28 17:30] LABS: Troponin 5 2HR Delta -3 ABS# (0-10)
[2023-03-28 17:30] LABS: Troponin(5th) Baseline 18 ng/L (0-15)
[2023-03-28 18:20] VITALS: BP 122/66; PULSE 74; O2SAT 95
== END 2023-03-28 18:22 | disposition home or self-care (01) ==
PROVIDERS: Emergency Provider Family Medicine; PCP Family Medicine
DX: I95.1 Orthostatic hypotension (principal); G90.3 Multi-system degeneration of the autonomic nervous system; G20 Parkinson's disease; F02.80 Dementia in other diseases classified elsewhere, unspecified severity, without behavioral disturbance, psychotic disturbance, mood disturbance, and anxiety; G31.83 Neurocognitive disorder with Lewy bodies; Z79.82 Long term (current) use of aspirin; Z79.02 Long term (current) use of antithrombotics/antiplatelets; I25.10 Atherosclerotic heart disease of native coronary artery without angina pectoris; I25.2 Old myocardial infarction; Z85.46 Personal history of malignant neoplasm of prostate; Z92.3 Personal history of irradiation
CPT/HCPCS: 36415; 70450; 71045; 80053; 84484; 85025; 93005; 96360; 99285; J7040

== ENCOUNTER → 2023-04-19 12:33 | Outpatient (BNVA) | payer OTHER, SELFPAY | PROVIDERS: PCP Family Medicine; Visit Provider Specialist | DX: G31.83 Neurocognitive disorder with Lewy bodies (principal); F02.82 Dementia in other diseases classified elsewhere, unspecified severity, with psychotic disturbance; I95.1 Orthostatic hypotension; I25.119 Atherosclerotic heart disease of native coronary artery with unspecified angina pectoris; I10 Essential (primary) hypertension; F02.80 Dementia in other diseases classified elsewhere, unspecified severity, without behavioral disturbance, psychotic disturbance, mood disturbance, and anxiety; M51.16 Intervertebral disc disorders with radiculopathy, lumbar region; G20 Parkinson's disease | CPT/HCPCS: 99214 ==

== ENCOUNTER → 2023-05-03 13:06 | Outpatient (BNVA) | payer OTHER, SELFPAY | PROVIDERS: PCP Family Medicine; Visit Provider Nurse Practitioner Family | DX: I95.1 Orthostatic hypotension (principal); I44.1 Atrioventricular block, second degree; I25.119 Atherosclerotic heart disease of native coronary artery with unspecified angina pectoris; Z95.5 Presence of coronary angioplasty implant and graft; Z79.82 Long term (current) use of aspirin | CPT/HCPCS: 99214 ==

== ENCOUNTER 2023-05-20 08:57 | Outpatient (CLI) | payer OTHER, SELFPAY ==
[2023-05-20 09:22] VITALS: BMI 25.7
--- NOTE | 2023-05-20 09:24 | ECG_ITS ---
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 Interpretive Statements NAME OF STUDY: LEXISCAN SESTAMIBI STRESS TEST INDICATION: [2nd degree heart block, ] Procedure: At the baseline, the blood pressure was 130/77 mmHg with a heart rate of 61 bpm. The electrocardiogram showed normal sinus rhythm, normal axis with normal ST and T's. The Lexiscan was infused over a period of 20 seconds. A total of 0.4 mg of Lexiscan was infused. The stress phase was continued for a total of 5 minutes. Heart rate was at the end of stress phase was 86 bpm and a blood pressure of 161/75 mmHg. The EKG at the peak infusion revealed normal sinus rhythm with no significant ST-T wave changes. Sestamibi was injected 20 seconds after the Lexiscan infusion. Blood pressure at the end of recovery phase was 183/76 mmHg with a heart rate of 85 bpm. Conclusion: 1. Normal EKG response to Lexiscan infusion 2. No Lexiscan induced chest pain or cardiac arrhythmia. 3. Normal blood pressure and heart rate response. 4. Sestamibi/sestamibi perfusion scan pending; see separate report. Electronically Signed On 05-21-2023 14:24:45 CDT by Maikel Osei M.D. [id number]
--- NOTE | 2023-05-20 09:24 | NMCV_ITS ---
NM estela perf SPECT r/s* [id number] Renny Matos Age: 83 Gender: M : 1940 Exam Date: 05/20/2023 10:00 Ordering Phys: Caroline Goins Technologist: ALBERTO Duran Exam Location: [facility] Indications: SYNCOPE AND COLLAPSE, ATHEROSCLEROTIC HEART DISEASE STRESS TEST Please [facility] IMAGE PROTOCOL Rest/Stress 1 Lexiscan Day Radiopharmaceutical Dose (mCi) Administration Site Administered by Rest: Tc-99m 10.5 IV Artie Francois, HEAD FILTER PRESS TENDER Sestamibi Stress:Tc-99m 32.5 IV Artie Francois, HEAD FILTER PRESS TENDER Sestamibi Rest: 20-May-2023 60 Discovery 630 Stress: 20-May-2023 30 Discovery 630 0.4mg Lexiscan. Supine position only as patient was unable to lay prone. SPECT RESULTS Technical Quality: Excellent Raw Data Analysis: Normal Image Corrections: No attenuation or motion correction applied Summed Stress Score: 6 Summed Rest Score: 4 Summed Difference Score: 3 PERFUSION FINDINGS There is a small to medium sized area of reversible perfusion defect noted in inferior wall. This is consistent with a small to medium sized area of ischemia in RCA territory. FUNCTIONAL RESULTS (calculated via Gated SPECT) Stress Image LV EF (%): 90 Stress EDV (mL):51 TID: 0.45 Stress ESV (mL):5 FUNCTIONAL FINDINGS: There is normal left ventricular systolic function. IMPRESSIONS 1. Small to medium sized area of ischemia noted in the RCA territory. 2. LV systolic function is normal Maikel Osei MD (Electronically Signed) Final Date: 21 May 2023 13:52 S
[2023-05-20] MEDS: regadenoson 0.4 Mg/5 ml Syringe IVP (10:47)
[2023-05-20 10:57] VITALS: BP 183/76; PULSE 85
== END 2023-05-20 08:58 | disposition home or self-care (01) ==
LOC: CDL 08:57
PROVIDERS: PCP Family Medicine; Visit Provider Nurse Practitioner Family
DX: R55 Syncope and collapse (principal); I25.10 Atherosclerotic heart disease of native coronary artery without angina pectoris; I25.89 Other forms of chronic ischemic heart disease
CPT/HCPCS: 36415; 78452; 93017; 96374; A9500; J2785

== ENCOUNTER → 2023-05-31 09:42 | Outpatient (BNVA) | payer OTHER, SELFPAY | PROVIDERS: PCP Family Medicine; Visit Provider Specialist | DX: G20 Parkinson's disease (principal); F02.C2 Dementia in other diseases classified elsewhere, severe, with psychotic disturbance; G43.711 Chronic migraine without aura, intractable, with status migrainosus; G90.3 Multi-system degeneration of the autonomic nervous system; Z91.81 History of falling | CPT/HCPCS: 99214 ==

== ENCOUNTER 2023-06-06 18:22 | Emergency (ER) | payer OTHER, SELFPAY ==
[2023-06-06 18:26] VITALS: BP 132/74; PULSE 76; TEMP 36.6; O2SAT 94; BMI 25.2
--- NOTE | 2023-06-06 18:37 | XRR_ITS ---
PROCEDURE INFORMATION: Exam: XR Chest Exam date and time: 06/06/2023 6:41 PM Age: 83 years old Clinical indication: Other: Syncope TECHNIQUE: Imaging protocol: Radiologic exam of the chest. Views: 1 view. COMPARISON: CR XR chest 1V portable [id number] 03/28/2023 2:13 PM FINDINGS: Lungs: Unremarkable. No consolidation. Pleural spaces: Unremarkable. No pleural effusion. No pneumothorax. Heart/Mediastinum: Calcified mediastinal lymph nodes. No cardiomegaly. Bones/joints: Unremarkable. XR/XR chest 1V portable [id number] IMPRESSION: No acute findings. Calcified granuloma left lung base.
--- NOTE | 2023-06-06 18:38 | ECG_ITS ---
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 Measurements Intervals [place] Rate: 71 P: 60 MD: 176 QRS: -26 QRSD: 139 T: 31 QT: 425 QTc: 462 Interpretive Statements SINUS RHYTHM WITH OCCASIONAL VENTRICULAR PREMATURE COMPLEXES RIGHT BUNDLE BRANCH BLOCK [120+ ms QRS DURATION, UPRIGHT V1, 40+ ms S IN I/aVL/V4/V5/V6] POSSIBLE SEPTAL MYOCARDIAL INFARCTION , PROBABLY OLD [30 ms Q WAVE IN V1/V2] Compared to ECG 03/28/2023 16:48:06 Ventricular premature complex(es) now present Myocardial infarct finding still present Electronically Signed On 06-06-2023 21:40:28 CDT by Julia Silva M.D. [id number]
--- NOTE | 2023-06-06 18:44 | CTR_ITS ---
PROCEDURE INFORMATION: Exam: CT Head Without Contrast Exam date and time: 06/06/2023 6:52 PM Age: 83 years old Clinical indication: Injury or trauma; Fall; Concussion/head injury; Consciousness not specified TECHNIQUE: Imaging protocol: Computed tomography of the head without contrast. Radiation optimization: All CT scans at this facility use at least one of these dose optimization techniques: automated exposure control; mA and/or kV adjustment per patient size (includes targeted exams where dose is matched to clinical indication); or iterative reconstruction. REPORTING DATA: Count of CT and Cardiac NM exams in prior 12 months: This patient has received 7 known CTs and 0 known cardiac nuclear medicine studies in the 12 months prior to the current study. COMPARISON: CT head wo con* [id number] 03/28/2023 2:48 PM RADIATION DOSE METRICS: Total DLP (mGy-cm): 1213.09 FINDINGS: Brain: Age-appropriate cortical atrophy. Mild periventricular small-vessel ischemic change. Cerebral ventricles: No ventriculomegaly. Paranasal sinuses: Visualized sinuses are unremarkable. No fluid levels. Mastoid air cells: Visualized mastoid air cells are well aerated. Bones/joints: Unremarkable. No acute fracture. Soft tissues: Unremarkable. CT/CT head wo con* [id number] IMPRESSION: Age-appropriate cortical atrophy with periventricular small-vessel ischemic change. No acute intracranial abnormality is appreciated
--- NOTE | 2023-06-06 18:44 | CTR_ITS ---
PROCEDURE INFORMATION: Exam: CT Cervical Spine Without Contrast Exam date and time: 06/06/2023 6:52 PM Age: 83 years old Clinical indication: Injury or trauma; Fall; Blunt trauma; Injury details: History--pt had witness syncopal episode, with down time of 10 min with snoring respirations. PT has history of parkinsons and lewy body dementia TECHNIQUE: Imaging protocol: Computed tomography of the cervical spine without contrast. Radiation optimization: All CT scans at this facility use at least one of these dose optimization techniques: automated exposure control; mA and/or kV adjustment per patient size (includes targeted exams where dose is matched to clinical indication); or iterative reconstruction. REPORTING DATA: Count of CT and Cardiac NM exams in prior 12 months: This patient has received 7 known CTs and 0 known cardiac nuclear medicine studies in the 12 months prior to the current study. COMPARISON: CT cervical spin wo con* [id number] 01/06/2023 10:48 AM RADIATION DOSE METRICS: Total DLP (mGy-cm): 214.3 FINDINGS: Bones/joints: No evidence of acute fracture subluxation or perched facet. There is left facet arthropathy at multiple levels producing left neural foramina narrowing. Lungs: Lung apices are normal. Soft tissues: Unremarkable. CT/CT cervical spin wo con* [id number] IMPRESSION: 1. No evidence of acute fracture subluxation or perched facet. 2. Facet arthropathy on the left side produces left neural foramina narrowing at multiple levels.
--- NOTE | 2023-06-06 18:53 | W.ED.SYNCOPE ---
HPI - Syncope General: Chief Complaint: Syncope Stated Complaint: syncope Time Seen by Provider: 06/06/23 18:24 Source: patient, family and EMS Mode of arrival: EMS Limitations: no limitations History of Present Illness: 83-year-old male with a history of Lewy body dementia here after syncopal event family states he had got in the shower they heard a thump went in and he had passed out he been passed out for roughly 10 minutes he is now awake and alert he does complain of some slight neck and headache. Per family patient's had many syncopal events in the past he denies any chest pain before of the event. He is answering my questions appropriately currently. Associated symptoms: Deny abdominal pain, chest pain, fever(s), headache(s) or nausea Review of Systems Const: Denies: fever(s), chills, body aches or change in appetite Eyes: Denies: eye discomfort ENMT: Denies: throat pain or dental pain Card: Reports: syncope; Denies: chest pain Resp: Denies: dyspnea GI: Denies: abdominal pain, nausea, vomiting or diarrhea Musc: Denies: neck pain or back pain Skin/Breast: Denies: rash Neuro: Denies: headache(s) PFSH ED PFSH: Medical History Arthritis of left acromioclavicular joint CAD (coronary artery disease) Chronic constipation Chronic pain Dementia Hypertensive emergency Lewy body dementia Lower urinary tract symptoms (LUTS) Non-ST elevation [place] (NSTEMI) 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 Tamia Foley. Bilateral L3-L4 hemilaminotomy/foraminotomy, with limited discectomy. Bilateral L2-L3 laminotomy/foraminotomy. Family History Grandmother CAD (coronary artery disease) Cancer Myocardial infarct Family/Other Hypertension Mother , at age 95 No problems noted. Father , at age 39 Blood clot associated with vein wall inflammation Social History Smoking and tobacco status: never smoked Alcohol intake: never Substance/Drug Use: never Household members: family and children Marital status: / Current occupational status: retired Physical Exam Const: COMMON NORMALS: no acute distress, patient oriented x3 and healthy appearing HENMT: COMMON NORMALS: normocephalic and atraumatic HEAD & SCALP: normocephalic and atraumatic Eye: COMMON NORMALS: Equal, round and reactive pupils present and EOMs intact bilaterally PUPIL: Yes Equal, round and reactive pupils present Neck/C-Spine: OTHER: Tenderness along C-spine Chest: COMMONS NORMALS: normal inspection of the chest and normal palpation of entire chest wall Resp: COMMON NORMALS: normal respiratory effort, No retractions, No use of accessory muscles and clear to auscultation bilaterally AUSCULTATION: clear to auscultation bilaterally Cardio: COMMON NORMALS: regular rate, regular rhythm and No murmurs present (Cardio) RATE: regular rate RHYTHM: regular rhythm GI: COMMON NORMALS: Normal to inspection, nondistended, normoactive bowel sounds present, Soft to palpation, non-tender and no masses PALPATION: Yes Soft to palpation Extremity: COMMON NORMALS: normal to inspection and full ROM Neuro: COMMON NORMALS: patient oriented x3, moves all extremities and no focal motor deficits CRANIAL NERVES: Yes CN normal except as noted SPEECH: speech normal MOTOR EXAM: 5/5 motor strength present throughout Psych: COMMON NORMALS: mental status grossly normal, Normal thought process present and cooperative THOUGHT PROCESS: Normal thought process present Skin: COMMON NORMALS: no rashes or lesions noted and no wounds GENERAL SKIN EXAM: no rashes or lesions noted Course Vital Signs: Vital signs: Vital Signs Temperature 97.9 F 06/06/23 18:26 Pulse Rate 65 06/06/23 19:30 Respiratory Rate 18 06/06/23 19:30 Blood Pressure 144/80 06/06/23 19:30 Pulse Oximetry 95 06/06/23 19:30 Oxygen Delivery Me thod Room Air 07/17/23 19:30 MDM - Syncope Medical Decision Making Patient presents here with a syncopal event he had multiple syncopal events in the past is likely an orthostatic event. Head CT here is normal blood works all normal he is stable for discharge follow-up with PCP and return if worsening. Medical Records I reviewed the patient's medical records. Lab Data I reviewed the patient's lab results. 06/06/23 19:45 06/06/23 19:45 Radiology Impressions Chest X-Ray 06/06/23 18:37 IMPRESSION: No acute findings. Calcified granuloma left lung base. Cervical Spine CT 06/06/23 18:44 IMPRESSION: 1. No evidence of acute fracture subluxation or perched facet. 2. Facet arthropathy on the left side produces left neural foramina narrowing at multiple levels. Head CT 06/06/23 18:44 IMPRESSION: Age-appropriate cortical atrophy with periventricular small-vessel ischemic change. No acute intracranial abnormality is appreciated Laboratory Results WBC 10.7 10^3/uL (4.0-10.0) H 06/06/23 19:45 RBC 4.39 10^6/uL (4.1-5.3) 06/06/23 19:45 Hgb 13.6 g/dL (11.7-16.6) 06/06/23 19:45 Hct 42.0 % (42.0-52.0) 06/06/23 19:45 MCV 95.7 fl (80-94) H 06/06/23 19:45 MCH 31.0 pg (28.0-34.0) 06/06/23 19:45 MCHC 32.4 g/dL (30.0-36.0) 06/06/23 19:45 RDW 12.7 % (12.1-15.1) 06/06/23 19:45 Plt Count 140 10^3/cmm (130-400) 06/06/23 19:45 MPV 10.4 fL (7.4-10.4) 06/06/23 19:45 Neut % (Auto) 81.6 % 06/06/23 19:45 Lymph % (Auto) 9.9 % 06/06/23 19:45 [place] % (Auto) 7.2 % 06/06/23 19:45 Eos % (Auto) 0.7 % 06/06/23 19:45 Baso % (Auto) 0.3 % 06/06/23 19:45 Neut # (Auto) 8.70 10^3/uL (1.8-7.7) H 06/06/23 19:45 Lymph # (Auto) 1.1 10^3/uL (0.8-4.8) 06/06/23 19:45 [place] # (Auto) 0.8 10^3/uL (0.2-0.9) 06/06/23 19:45 Eos # (Auto) 0.1 10^3/uL (0.0-0.8) 06/06/23 19:45 Baso # (Auto) 0.0 10^3/uL (0.0-0.1) 06/06/23 19:45 Nucleated RBC % (auto) 0 % 06/06/23 19:45 Nucleated RBCs # 0.0 /100WBC 06/06/23 19:45 Sodium 138 mmol/L (136-145) 06/06/23 19:45 Potassium 4.3 mmol/L (3.5-5.1) 06/06/23 19:45 Chloride 105 mmol/L (98-107) 06/06/23 19:45 Carbon Dioxide 20 mmol/L (22-29) L 06/06/23 19:45 Anion Gap 17.3 (5-19) 06/06/23 19:45 BUN 26 mg/dL (8-23) H 06/06/23 19:45 Creatinine 1.0 mg/dL (0.7-1.2) 06/06/23 19:45 GFR Calculation Not Reportable 06/06/23 19:45 Glucose 99 mg/dL (65-115) 06/06/23 19:45 Calculated Osmolality 291 mOsm/kg (285-295) 06/06/23 19:45 Calcium 9.1 mg/dL (8.5-10.5) 06/06/23 19:45 Total Bilirubin 0.4 mg/dL (0.15-1.2) 06/06/23 19:45 AST 10 U/L (0-40) 06/06/23 19:45 ALT 6 U/L (0-41) 06/06/23 19:45 Alkaline Phosphatase 94 U/L (40-130) 06/06/23 19:45 Total Protein 6.5 g/dL (6.6-8.7) L 06/06/23 19:45 Albumin 3.9 g/dL (3.5-5.2) 06/06/23 19:45 Globulin 2.6 g/dL (1.3-4.6) 06/06/23 19:45 EKG Data EKG 1: I personally reviewed and interpreted this EKG as follows: EKG interpretation date: 06/06/23 EKG interpretation time: 19:03 Interpretation: nsr hr [address] or t wave abnormalities qrs 139 qtc 447 Discharge Plan Discharge Patient Disposition: Home Clinical Impression: Syncope Condition: Stable Prescriptions: No Action Stool Softener 50 mg capsule 50 - 100 mg PO DAILY PRN (Reason: Constipation) oxybutynin chloride 5 mg tablet 5 mg PO BID carboxymethylcellulose sodium 1 % drops, liquid gel 1 drp ophthalmic (eye) BID PRN (Reason: Dry Eye(S)) Celexa 40 mg tablet 20 mg PO BEDTIME Qty: 90 3RF nitroglycerin 0.4 mg tablet, sublingual 0.4 mg sublingual Q5M PRN (Reason: chest pain) Qty: 25 3RF Rx Instructions: do not exceed 3 doses per episode midodrine 5 mg tablet 5 mg PO TID 90 Days Qty: 270 1RF Rx Instructions: do not give last dose of day after 6PM or within 4 hrs of bedtime ondansetron 4 mg tablet,disintegrating 4 mg PO Q8H PRN carbidopa-levodopa 25-100 mg tablet See Rx Instructions .ROUTE .COMPLEX Qty: 360 3RF Dose Instruction: TAKE 1 TABLET BY MOUTH IN THE MORNING, 1 TABLET AT NOON, 1 IN THE AFTERNOON, AND 1 AT 4 PM Rx Instructions: TAKE 1 TABLET BY MOUTH IN THE MORNING, 1 TABLET AT NOON, 1 IN THE AFTERNOON, AND 1 AT 4 PM cholecalciferol (vitamin D3) [Vitamin D3] 25 mcg (1,000 unit) Tablet 75 mcg PO QAM polyethylene glycol 3350 [Miralax] 17 gram powder in packet 17 g PO DAILY PRN (Reason: Constipation) Tylenol Extra Strength 500 mg tablet 1,000 mg PO BID PRN (Reason: Pain) isosorbide mononitrate 30 mg tablet extended release 24 hr 15 mg PO BEDTIME aspirin 81 mg Tablet,Delayed Release (Dr/Ec) 81 mg PO QAM Thc Gummies 0.5 tab PO DAILY miconazole nitrate 2 % Powder See Rx Instructions .ROUTE .COMPLEX Rx Instructions: apply topically three times a day as needed for fungal infection or to rectum Pepcid 20 mg Tablet 20 mg PO BID PRN (Reason: Heartburn) Lidocaine Viscous 2 % Solution See Rx Instructions .ROUTE .COMPLEX Rx Instructions: mix with water and use as directed as needed zinc oxide 40 % Ointment 1 applic TOPICAL DAILY galantamine 4 mg tablet 4 mg PO BID Rx Instructions: administer with AM and PM meals watch for nausea pantoprazole 40 mg tablet,delayed release (DR/EC) 40 mg PO DAILY@12 Discharge Orders: Discharge ED (Routine); Ordered 06/06/23 Ordered By: Catrachito Tony Referrals: Minnie Coello MD [Primary Care Provider] - 1-3 days Discharge Diet: Advance as tolerated Discharge Activity: Resume usual activity Patient Instructions: Syncope (ED) Coding Level of Care Code ED Government Relations Analyst for Krystyna Antoyn
[2023-06-06 19:30] VITALS: BP 144/80; PULSE 65; RESP 18; O2SAT 95
[2023-06-06 19:53] LABS: Basophils % 0.3 %; Eosinophils # 0.1 10^3/uL (0.0-0.8); Eosinophils % 0.7 %; Hemoglobin 13.6 g/dL (11.7-16.6); Lymphocytes # 1.1 10^3/uL (0.8-4.8); Lymphocytes % 9.9 %; Mean Corpuscular HGB Conc 32.4 g/dL (30.0-36.0); Mean Corpuscular Volume 95.7 fl (80-94); Mean Platelet Volume 10.4 fL (7.4-10.4); Monocytes # 0.8 10^3/uL (0.2-0.9); Monocytes % 7.2 %; Neutrophils % 81.6 %; Nucleated Red Blood Cells % 0 %; Platelet Count 140 10^3/cmm (130-400); Red Blood Count 4.39 10^6/uL (4.1-5.3); Red Cell Distribution Width 12.7 % (12.1-15.1); White Blood Count 10.7 10^3/uL (4.0-10.0)
[2023-06-06 20:15] LABS: Alanine Aminotransferase 6 U/L (0-41); Albumin Level 3.9 g/dL (3.5-5.2); Alkaline Phosphatase 94 U/L (40-130); Anion Gap 17.3 (5-19); Aspartate Amino Transferase 10 U/L (0-40); Blood Urea Nitrogen 26 mg/dL (8-23); Calcium 9.1 mg/dL (8.5-10.5); Carbon Dioxide 20 mmol/L (22-29); Chloride 105 mmol/L (98-107); Globulin 2.6 g/dL (1.3-4.6); Glucose 99 mg/dL (65-115); Osmolality Calculated 291 mOsm/kg (285-295); Potassium 4.3 mmol/L (3.5-5.1); Sodium 138 mmol/L (136-145); Total Bilirubin 0.4 mg/dL (0.15-1.2); Total Protein 6.5 g/dL (6.6-8.7)
[2023-06-06 20:31] VITALS: BP 156/89; PULSE 70; RESP 18; O2SAT 96
[2023-06-06] MEDS: sodium chloride 0.9% 1,000 ML 999 ML IV (20:32)
[2023-06-06 21:00] VITALS: BP 175/76; PULSE 73; RESP 16; O2SAT 97
[2023-06-06 21:21] VITALS: BP 161/73; PULSE 72; RESP 18; O2SAT 96
[2023-06-07 08:30] LABS: Glucose Point of Care 98 mg/dL (70-110)
== END 2023-06-06 21:24 | disposition home or self-care (01) ==
PROVIDERS: Emergency Provider Emergency Medicine; PCP Family Medicine
DX: R55 Syncope and collapse (principal); Z79.82 Long term (current) use of aspirin; I25.10 Atherosclerotic heart disease of native coronary artery without angina pectoris; G31.83 Neurocognitive disorder with Lewy bodies; F02.80 Dementia in other diseases classified elsewhere, unspecified severity, without behavioral disturbance, psychotic disturbance, mood disturbance, and anxiety; G20 Parkinson's disease; I25.2 Old myocardial infarction; Z85.46 Personal history of malignant neoplasm of prostate
CPT/HCPCS: 36415; 36416; 70450; 71045; 72125; 80053; 82962; 85025; 93005; 99285; J7030

== ENCOUNTER → 2023-06-20 12:50 | Outpatient (BNVA) | payer OTHER, SELFPAY | PROVIDERS: PCP Family Medicine; Visit Provider Specialist | DX: G20 Parkinson's disease (principal); F02.C2 Dementia in other diseases classified elsewhere, severe, with psychotic disturbance; G90.3 Multi-system degeneration of the autonomic nervous system; Z91.81 History of falling | CPT/HCPCS: 99214 ==

== ENCOUNTER 2023-07-06 14:57 | Emergency (ER) | payer OTHER, SELFPAY ==
[2023-07-06 15:37] VITALS: BP 133/94; PULSE 75; RESP 18; TEMP 36.8; O2SAT 98; BMI 25.2
--- NOTE | 2023-07-06 16:14 | CTR_ITS ---
PROCEDURE INFORMATION: Exam: CT Head Without Contrast Exam date and time: 07/06/2023 4:23 PM Age: 83 years old Clinical indication: Injury or trauma; Fall; Blunt trauma (contusions or hematomas); Additional info: Trauma/fall TECHNIQUE: Imaging protocol: Computed tomography of the head without contrast. Radiation optimization: All CT scans at this facility use at least one of these dose optimization techniques: automated exposure control; mA and/or kV adjustment per patient size (includes targeted exams where dose is matched to clinical indication); or iterative reconstruction. REPORTING DATA: Count of CT and Cardiac NM exams in prior 12 months: This patient has received 8 known CTs and 0 known cardiac nuclear medicine studies in the 12 months prior to the current study. COMPARISON: CT head wo con* [id number] 06/06/2023 6:52 PM RADIATION DOSE METRICS: Total DLP (mGy-cm): 1129 FINDINGS: Brain: There are global involutional changes of the brain which are in keeping with the patient's age. Periventricular hypodensities are nonspecific but most likely reflect chronic microvascular ischemic disease. There is no acute intracranial hemorrhage or abnormal extra-axial fluid collection identified. There is no intracranial mass effect or shift of midline structures. The howell-white differentiation is preserved throughout. There is no sulcal effacement. The basilar cisterns are open. Cerebral ventricles: No hydrocephalus or ventricular effacement. Paranasal sinuses: The visualized sinuses are unremarkable. Mastoid air cells: There is no mastoid effusion detected. Bones/joints: No calvarial fracture or destructive osseous lesions are seen. Soft tissues: Unremarkable. Vasculature: Atherosclerotic vascular disease is noted at the level of the skull base. CT/CT head wo con* [id number] IMPRESSION: 1. No acute intracranial hemorrhage, mass effect or midline shift. 2. Involutional changes of the brain in keeping with the patient's age, with findings of chronic microvascular ischemic disease.
--- NOTE | 2023-07-06 16:14 | CTR_ITS ---
PROCEDURE INFORMATION: Exam: CT Cervical Spine Without Contrast Exam date and time: 07/06/2023 4:23 PM Age: 83 years old Clinical indication: Injury or trauma; Fall; Blunt trauma; Additional info: Fall/trauma TECHNIQUE: Imaging protocol: Computed tomography of the cervical spine without contrast. Radiation optimization: All CT scans at this facility use at least one of these dose optimization techniques: automated exposure control; mA and/or kV adjustment per patient size (includes targeted exams where dose is matched to clinical indication); or iterative reconstruction. REPORTING DATA: Count of CT and Cardiac NM exams in prior 12 months: This patient has received 8 known CTs and 0 known cardiac nuclear medicine studies in the 12 months prior to the current study. COMPARISON: CT cervical spin wo con* [id number] 06/06/2023 6:52 PM RADIATION DOSE METRICS: Total DLP (mGy-cm): 861.9 FINDINGS: Bones/joints: There are no anterior wedging deformities. No acute lucent fracture lines are visualized. Multilevel cervical spondylosis and facet arthropathy noted. Facet hypertrophy is eccentric to the left. There is slight right curvature the lower cervical spine. No severe central canal stenosis demonstrated by CT. There is multilevel neural foraminal stenosis, eccentric to the left. Lungs: Lung apices are normal. Soft tissues: Unremarkable. CT/CT cervical spin wo con* [id number] IMPRESSION: 1. No acute cervical spinal injury demonstrated by CT. 2. Degenerative changes of the cervical spine.
--- NOTE | 2023-07-06 17:21 | ED_ITS ---
HPI - Fall General: Chief Complaint: Fall Stated Complaint: [facility] Time Seen by Provider: 07/06/23 16:44 Source: patient and family Mode of arrival: ambulatory History of Present Illness: 83-year-old male presents emergency room after a fall. He fell this morning hit his head on a sheet rock wall actually put it into the wall. He has a history of Parkinson's he frequently falls he had been on Plavix but they stopped because of his frequent falls. Complaining of a bit of a headache now and some low back pain. Family also mentioned that he has had increasing difficulty with frequency urination. Sounds like he may be having some overflow incontinence from their description. He has a history of prostate cancer which she was previously treated for many years ago. Have not noticed any blood in the urine he has recently been checked for UTI which was negative. Family reports his falls are often associated with him trying to get up to go to the bathroom. He was recently prescribed Myrbetriq which she has not started yet. MD complaint: fall Fall from: standing Place fall occurred: home Loss of consciousness: None Prolonged down time: no Symptoms prior to fall: none Context: tripped/slipped Associated symptoms-after fall: Denies abdominal pain or chest pain Review of Systems Const: Denies: fever(s) or chills Card: Denies: chest pain, edema, dyspnea on exertion or orthopnea Resp: Denies: dyspnea, productive cough or non-productive cough GI: Denies: abdominal pain, nausea or vomiting : Denies: flank pain, dysuria, urinary frequency or urinary urgency Skin/Breast: Denies: rash or pruritus PFSH ED PFSH: Medical History Arthritis of left acromioclavicular joint CAD (coronary artery disease) Chronic constipation Chronic pain Dementia Hypertensive emergency Lewy body dementia Lower urinary tract symptoms (LUTS) Non-ST elevation [place] (NSTEMI) 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 Tamia Foley. Bilateral L3-L4 hemilaminotomy/foraminotomy, with limited discectomy. Bilateral L2-L3 laminotomy/foraminotomy. Family History Grandmother CAD (coronary artery disease) Cancer Myocardial infarct Family/Other Hypertension Mother , at age 95 No problems noted. Father , at age 39 Blood clot associated with vein wall inflammation Social History Smoking and tobacco/nicotine status: never used tobacco/nicotine Alcohol intake: never Substance/Drug Use: never Household members: family and children Marital status: / Current occupational status: retired Physical Exam Const: GENERAL APPEARANCE: cooperative and comfortable ORIENTATION/CONSCIOUSNESS: Yes awake HENMT: COMMON NORMALS: normocephalic, atraumatic and hearing grossly normal bilaterally HEAD & SCALP: normocephalic and atraumatic Resp: COMMON NORMALS: normal respiratory effort, No retractions, No use of accessory muscles and clear to auscultation bilaterally AUSCULTATION: clear to auscultation bilaterally Cardio: COMMON NORMALS: regular rate, regular rhythm and No murmurs present (Cardio) RATE: regular rate RHYTHM: regular rhythm GI: COMMON NORMALS: Soft to palpation and No hepatosplenomegaly present AUSCULTATION: Yes normoactive bowel sounds PALPATION: Yes Soft to palpation, No Tenderness to palpation present (GI), No Guarding due to palpation present (GI) and Yes No hepatosplenomegaly present Extremity: COMMON NORMALS: normal to inspection, capillary refill normal, no clubbing, cyanosis or edema, no calf tenderness and no pedal edema Skin: COMMON NORMALS: no rashes or lesions noted GENERAL SKIN EXAM: no rashes or lesions noted Course Vital Signs: Vital signs: Vital Signs Temperature 98.2 F 07/06/23 20:37 Pulse Rate 73 07/06/23 20:37 Respiratory Rate 16 07/06/23 20:37 Blood Pressure 140/61 07/06/23 20:37 Pulse Oximetry 100 07/06/23 20:37 Oxygen Delivery Me thod Room Air 07/06/23 15:37 MDM - Fall Medical Decision Making Care signed out to Dr. Coffey at change of shift. See final notes for diagnosis and disposition. Medical Records I reviewed the patient's medical records. Lab Data I reviewed the patient's lab results. Radiology Impressions Cervical Spine CT 07/06/23 16:14 IMPRESSION: 1. No acute cervical spinal injury demonstrated by CT. 2. Degenerative changes of the cervical spine. Head CT 07/06/23 16:14 IMPRESSION: 1. No acute intracranial hemorrhage, mass effect or midline shift. 2. Involutional changes of the brain in keeping with the patient's age, with findings of chronic microvascular ischemic disease. Laboratory Results Urine Color Yellow (Yellow) 07/06/23 19:40 Urine Appearance Clear (CLEAR) 07/06/23 19:40 Urine pH 5 (5-7) 07/06/23 19:40 Ur Specific [place] 1.020 (1.005-1.030) 07/06/23 19:40 Urine Protein Neg (Negative) 07/06/23 19:40 Urine Glucose (UA) Norm (Normal) 07/06/23 19:40 Urine Ketones 1+ (Negative) H 07/06/23 19:40 Urine Blood Neg (Negative) 07/06/23 19:40 Urine Nitrate Negative (Negative) 07/06/23 19:40 Urine Bilirubin Neg (Negative) 07/06/23 19:40 Urine Urobilinogen Norm mg/dL (Negative) 07/06/23 19:40 Ur Leukocyte Esterase Negative (Negative) 07/06/23 19:40 Discharge Plan Discharge Patient Disposition: Home Clinical Impression: Dementia, Fall, Urinary bladder incontinence Condition: Stable Prescriptions: New Flomax 0.4 mg capsule 0.4 mg PO DAILY Qty: 20 0RF No Action Stool Softener 50 mg capsule 50 - 100 mg PO DAILY PRN (Reason: Constipation) oxybutynin chloride 5 mg tablet 5 mg PO BID carboxymethylcellulose sodium 1 % drops, liquid gel 1 drp ophthalmic (eye) BID PRN (Reason: Dry Eye(S)) nitroglycerin 0.4 mg tablet, sublingual 0.4 mg sublingual Q5M PRN (Reason: chest pain) Qty: 25 3RF Rx Instructions: do not exceed 3 doses per episode midodrine 5 mg tablet 5 mg PO TID 90 Days Qty: 270 1RF Rx Instructions: do not give last dose of day after 6PM or within 4 hrs of bedtime ondansetron 4 mg tablet,disintegrating 4 mg PO Q8H PRN galantamine 4 mg tablet 4 mg PO BID Qty: 60 2RF Rx Instructions: administer with AM and PM meals watch for nausea carbidopa-levodopa 25-100 mg tablet See Rx Instructions .ROUTE .COMPLEX Qty: 360 3RF Dose Instruction: TAKE 1 TABLET BY MOUTH IN THE MORNING, 1 TABLET AT NOON, 1 IN THE AFTERNOON, AND 1 AT 4 PM Rx Instructions: TAKE 1 TABLET BY MOUTH IN THE MORNING, 1 TABLET AT NOON, 1 IN THE AFTERNOON, AND 1 AT 4 PM Celexa 40 mg tablet 20 mg PO BEDTIME Qty: 90 3RF Myrbetriq 25 mg tablet extended release 24 hr 25 mg PO DAILY Qty: 30 5RF cholecalciferol (vitamin D3) [Vitamin D3] 25 mcg (1,000 unit) Tablet 75 mcg PO QAM polyethylene glycol 3350 [Miralax] 17 gram powder in packet 17 g PO DAILY PRN (Reason: Constipation) Tylenol Extra Strength 500 mg tablet 1,000 mg PO BID PRN (Reason: Pain) isosorbide mononitrate 30 mg tablet extended release 24 hr 15 mg PO BEDTIME aspirin 81 mg Tablet,Delayed Release (Dr/Ec) 81 mg PO QAM Thc Gummies 0.5 tab PO DAILY miconazole nitrate 2 % Powder See Rx Instructions .ROUTE .COMPLEX Rx Instructions: apply topically three times a day as needed for fungal infection or to rectum Pepcid 20 mg Tablet 20 mg PO BID PRN (Reason: Heartburn) Lidocaine Viscous 2 % Solution See Rx Instructions .ROUTE .COMPLEX Rx Instructions: mix with water and use as directed as needed zinc oxide 40 % Ointment 1 applic TOPICAL DAILY pantoprazole 40 mg tablet,delayed release (DR/EC) 40 mg PO DAILY@12 Discharge Orders: Discharge ED (Routine); Ordered 07/06/23 Ordered By: Mica Coffey Referrals: Minnie Coello MD [Primary Care Provider] - Discharge Diet: Advance as tolerated Discharge Activity: Resume usual activity Patient Instructions: Opioid Safety, Pain Management Coding Level of Care Code ED Diesel Powerplant Supervisor for Chg Cassia
[2023-07-06 18:41] VITALS: BP 151/77; PULSE 68; RESP 18; O2SAT 97
[2023-07-06 19:44] LABS: Add Urine Microscopic? NO; Charge for UA Resulting for Rev
[2023-07-06 19:47] LABS: Bilirubin Urine Neg (Negative); Blood Urine Neg (Negative); Glucose Urine UA Norm (Normal); Ketones Urine 1+ (Negative); Leukocyte Esterase Urine Negative (Negative); Nitrate Urine Negative (Negative); Protein Urine Neg (Negative); Urine Appearance Clear (CLEAR); Urine Color Yellow (Yellow); Urobilinogen Urine Norm (Negative); pH Urine 5 (5-7)
[2023-07-06] MEDS: tamsulosin 0.4 mg Capsule PO (20:25)
[2023-07-06 20:26] VITALS: BP 140/61; PULSE 73; RESP 16; O2SAT 95
[2023-07-06 20:37] VITALS: BP 140/61; PULSE 73; RESP 16; TEMP 36.8; O2SAT 100
== END 2023-07-06 20:38 | disposition home or self-care (01) ==
PROVIDERS: Family Medicine; Emergency Provider Family Medicine; PCP Family Medicine
DX: G20 Parkinson's disease (principal); F02.80 Dementia in other diseases classified elsewhere, unspecified severity, without behavioral disturbance, psychotic disturbance, mood disturbance, and anxiety; R32 Unspecified urinary incontinence; W18.39XA Other fall on same level, initial encounter; Z79.82 Long term (current) use of aspirin; I25.10 Atherosclerotic heart disease of native coronary artery without angina pectoris; I25.2 Old myocardial infarction; Z85.46 Personal history of malignant neoplasm of prostate; Z92.3 Personal history of irradiation
CPT/HCPCS: 51798; 70450; 72125; 81003; 99284

== ENCOUNTER 2023-07-25 21:05 | Emergency (ER) | payer OTHER, SELFPAY ==
[2023-07-25 21:16] VITALS: BP 164/84; PULSE 79; RESP 16; TEMP 36.7; O2SAT 95; BMI 25.0
--- NOTE | 2023-07-25 21:25 | ED_ITS ---
HPI - General Adult General: Chief complaint: General Medical Stated complaint: high blood pressure Time Seen by Provider: 07/25/23 21:24 History of Present Illness: 83-year-old male patient resides at [facility]. Patient recently just started living there but had missed his last 2 doses of his blood pressure medication over 2 days. Patient reported not feeling well and having a headache which prompted the daughter to bring patient over to the ER for evaluation. B lood pressure was elevated at the skilled nursing at 200 systolic. The daughter had realized patient had missed his blood pressure medication and was able to get that remedied and patient had received his dose of blood pressure medicine tonight. Patient appears nontoxic. Patient appears in no pain. 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 Tamia Foley. Bilateral L3-L4 hemilaminotomy/foraminotomy, with limited discectomy. Bilateral L2-L3 laminotomy/foraminotomy. Family History Grandmother CAD (coronary artery disease) Cancer Myocardial infarct Family/Other Hypertension Mother , at age 95 No problems noted. Father , at age 39 Blood clot associated with vein wall inflammation Social History Smoking and tobacco status: never smoked Alcohol intake: never Substance/Drug Use: never Household members: family and children Marital status: / Current occupational status: retired Physical Exam Const: COMMON NORMALS: alert HENMT: COMMON NORMALS: normocephalic HEAD & SCALP: normocephalic Neck/C-Spine: COMMON NORMALS: full ROM and no meningeal signs Resp: COMMON NORMALS: normal respiratory effort and clear to auscultation bilaterally AUSCULTATION: clear to auscultation bilaterally Cardio: COMMON NORMALS: regular rate and regular rhythm RATE: regular rate RHYTHM: regular rhythm GI: COMMON NORMALS: Soft to palpation and non-tender PALPATION: Yes Soft to palpation Extremity: COMMON NORMALS: no pedal edema Neuro: SENSORIUM/ORIENTATION: Yes alert MENINGEAL SIGNS: Yes no meningeal signs Skin: COMMON NORMALS: turgor normal GENERAL SKIN EXAM: turgor normal Course Vital Signs: Vital signs: Vital Signs Temperature 98.0 F 07/25/23 21:16 Pulse Rate 79 07/25/23 21:16 Respiratory Rate 16 07/25/23 21:16 Blood Pressure 164/84 07/25/23 21:16 Pulse Oximetry 95 07/25/23 21:16 Oxygen Delivery Me thod Room Air 07/25/23 21:16 MDM - General Adult Medical Decision Making Patient was brought in by daughter for concerns of elevated blood pressure on e xam lungs are clear to auscultation. No signs of edema was noted. Patient no focal neural deficits. Patient moves all extremities well. Differential diagnosis includes but not limited to ACS, stroke syndrome, uncontrolled blood pressure, missed dosed medication, anxiety. EKG showed a sinus rhythm with no ST elevation or ectopy. Chest x-ray was normal without any signs of cardiomegaly or pulmonary effusion. Reassured patient and daughter that everything appeared normal and that patient's blood pressure has come down since receiving his medication. Recommend continuation of care and follow-up with primary care for further instructions. Daughter reported understanding along with patient. Discharge Plan Discharge Patient Disposition: Home Clinical Impression: Hypertension Qualifiers: Hypertension type: unspecified Qualified Code(s): I10 - Essential (primary) hypertension Condition: Stable Prescriptions: No Action Stool Softener 50 mg capsule 50 - 100 mg PO DAILY PRN (Reason: Constipation) oxybutynin chloride 5 mg tablet 5 mg PO BID carboxymethylcellulose sodium 1 % drops, liquid gel 1 drp ophthalmic (eye) BID PRN (Reason: Dry Eye(S)) nitroglycerin 0.4 mg tablet, sublingual 0.4 mg sublingual Q5M PRN (Reason: chest pain) Qty: 25 3RF Rx Instructions: do not exceed 3 doses per episode midodrine 5 mg tablet 5 mg PO TID 90 Days Qty: 270 1RF Rx Instructions: do not give last dose of day after 6PM or within 4 hrs of bedtime ondansetron 4 mg tablet,disintegrating 4 mg PO Q8H PRN galantamine 4 mg tablet 4 mg PO BID Qty: 60 2RF Rx Instructions: administer with AM and PM meals watch for nausea carbidopa-levodopa 25-100 mg tablet See Rx Instructions .ROUTE .COMPLEX Qty: 360 3RF Dose Instruction: TAKE 1 TABLET BY MOUTH IN THE MORNING, 1 TABLET AT NOON, 1 IN THE AFTERNOON, AND 1 AT 4 PM Rx Instructions: TAKE 1 TABLET BY MOUTH IN THE MORNING, 1 TABLET AT NOON, 1 IN THE AFTERNOON, AND 1 AT 4 PM Celexa 40 mg tablet 20 mg PO BEDTIME Qty: 90 3RF Myrbetriq 25 mg tablet extended release 24 hr 25 mg PO DAILY Qty: 30 5RF cholecalciferol (vitamin D3) [Vitamin D3] 25 mcg (1,000 unit) Tablet 75 mcg PO QAM polyethylene glycol 3350 [Miralax] 17 gram powder in packet 17 g PO DAILY PRN (Reason: Constipation) Tylenol Extra Strength 500 mg tablet 1,000 mg PO BID PRN (Reason: Pain) isosorbide mononitrate 30 mg tablet extended release 24 hr 15 mg PO BEDTIME aspirin 81 mg Tablet,Delayed Release (Dr/Ec) 81 mg PO QAM Thc Gummies 0.5 tab PO DAILY miconazole nitrate 2 % Powder See Rx Instructions .ROUTE .COMPLEX Rx Instructions: apply topically three times a day as needed for fungal infection or to rectum Pepcid 20 mg Tablet 20 mg PO BID PRN (Reason: Heartburn) Lidocaine Viscous 2 % Solution See Rx Instructions .ROUTE .COMPLEX Rx Instructions: mix with water and use as directed as needed zinc oxide 40 % Ointment 1 applic TOPICAL DAILY pantoprazole 40 mg tablet,delayed release (DR/EC) 40 mg PO DAILY@12 Flomax 0.4 mg capsule 0.4 mg PO DAILY Qty: 20 0RF Discharge Orders: Discharge ED (Routine); Ordered 07/25/23 Ordered By: Esocbar Espinoza Referrals: Minnie Coello MD [Primary Care Provider] - Discharge Diet: Usual diet Discharge Activity: Increase activity as tolerated Patient Instructions: Hypertension (ED) Activity Restrictions/Additional Instructions: Continue with routine care. Follow-up with primary care for further instructions. Return to ED for worsening symptoms such as severe chest pain, shortness of breath, or new concerns. Coding Level of Care Code ED Care Transition Coordinator for Krystyna Antony
--- NOTE | 2023-07-25 21:34 | XRR_ITS ---
PROCEDURE INFORMATION: Exam: XR Chest Exam date and time: 07/25/2023 9:48 PM Age: 83 years old Clinical indication: Other: High blood pressure; Additional info: HTN TECHNIQUE: Imaging protocol: Radiologic exam of the chest. Views: 1 view. COMPARISON: CR XR chest 1V portable [id number] 06/06/2023 6:41 PM FINDINGS: Lungs: Unremarkable. No consolidation. Pleural spaces: Unremarkable. No pleural effusion. No pneumothorax. Heart/Mediastinum: Unremarkable. No cardiomegaly. Coronary artery stent seen. Bones/joints: Unremarkable. XR/XR chest 1V portable [id number] IMPRESSION: No acute findings.
--- NOTE | 2023-07-25 21:42 | ECG_ITS ---
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 Measurements Intervals [place] Rate: 71 P: 19 SD: 166 QRS: -31 QRSD: 133 T: 7 QT: 432 QTc: 472 Interpretive Statements SINUS RHYTHM LEFT AXIS DEVIATION [QRS AXIS < -30] RIGHT BUNDLE BRANCH BLOCK [120+ ms QRS DURATION, UPRIGHT V1, 40+ ms S IN I/aVL/V4/V5/V6] PROBABLE SEPTAL MYOCARDIAL INFARCTION , PROBABLY OLD [35 ms Q WAVE IN V1/V2] Compared to ECG 06/06/2023 19:03:34 Left-axis deviation now present Ventricular premature complex(es) no longer present Myocardial infarct finding still present Electronically Signed On 07-26-2023 12:05:29 CDT by Maikel Osei M.D. [id number] jarrod
[2023-07-25 22:41] VITALS: BP 153/77
== END 2023-07-25 22:15 | disposition home or self-care (01) ==
PROVIDERS: Emergency Provider Nurse Practitioner Family; PCP Family Medicine
DX: I10 Essential (primary) hypertension (principal); Z79.82 Long term (current) use of aspirin; I25.10 Atherosclerotic heart disease of native coronary artery without angina pectoris; G31.83 Neurocognitive disorder with Lewy bodies; F02.80 Dementia in other diseases classified elsewhere, unspecified severity, without behavioral disturbance, psychotic disturbance, mood disturbance, and anxiety; I25.2 Old myocardial infarction; G20 Parkinson's disease; Z85.46 Personal history of malignant neoplasm of prostate; Z92.3 Personal history of irradiation
CPT/HCPCS: 71045; 93005; 99284

== ENCOUNTER 2023-09-07 03:44 | Emergency (ER) | payer OTHER, SELFPAY ==
--- NOTE | 2023-09-07 03:45 | CTR_ITS ---
PROCEDURE INFORMATION: Exam: CT Head Without Contrast Exam date and time: 09/07/2023 3:57 AM Age: 83 years old Clinical indication: Injury or trauma; Fall; Patient HX: Abrasion to forehead; Additional info: Head injury TECHNIQUE: Imaging protocol: Computed tomography of the head without contrast. Radiation optimization: All CT scans at this facility use at least one of these dose optimization techniques: automated exposure control; mA and/or kV adjustment per patient size (includes targeted exams where dose is matched to clinical indication); or iterative reconstruction. REPORTING DATA: Count of CT and Cardiac NM exams in prior 12 months: This patient has received 10 known CTs and 0 known cardiac nuclear medicine studies in the 12 months prior to the current study. COMPARISON: CT head wo con* [id number] 07/06/2023 4:23 PM RADIATION DOSE METRICS: Total DLP (mGy-cm): 1057.1 FINDINGS: Brain: No hemorrhage. No edema, mass effect or midline shift. Periventricular and deep white matter hypodensities compatible with chronic microvascular ischemic changes. Cerebral ventricles: No ventriculomegaly. Paranasal sinuses: Visualized sinuses are unremarkable. No fluid levels. Mastoid air cells: No mastoid effusion. Bones/joints: No acute fracture. Soft tissues: Unremarkable. CT/CT head wo con* [id number] IMPRESSION: No acute intracranial abnormality.
--- NOTE | 2023-09-07 03:45 | CTR_ITS ---
PROCEDURE INFORMATION: Exam: CT Cervical Spine Without Contrast Exam date and time: 09/07/2023 4:00 AM Age: 83 years old Clinical indication: Injury or trauma; Fall; Blunt trauma TECHNIQUE: Imaging protocol: Computed tomography of the cervical spine without contrast. Radiation optimization: All CT scans at this facility use at least one of these dose optimization techniques: automated exposure control; mA and/or kV adjustment per patient size (includes targeted exams where dose is matched to clinical indication); or iterative reconstruction. REPORTING DATA: Count of CT and Cardiac NM exams in prior 12 months: This patient has received 10 known CTs and 0 known cardiac nuclear medicine studies in the 12 months prior to the current study. COMPARISON: CT cervical spin wo con* [id number] 07/06/2023 4:23 PM RADIATION DOSE METRICS: Total DLP (mGy-cm): 184.87 FINDINGS: Bones/joints: Degenerative changes are noted. No acute cervical fracture. Lungs: No pneumothorax. Soft tissues: Unremarkable. CT/CT cervical spin wo con* [id number] IMPRESSION: No acute cervical fracture.
[2023-09-07 03:46] VITALS: BP 163/91; PULSE 85; RESP 16; TEMP 36.7; O2SAT 95; BMI 29.8
--- NOTE | 2023-09-07 03:48 | W.ED.FALL ---
HPI - Fall General: Chief Complaint: Fall Stated Complaint: fall, head injury Time Seen by Provider: 09/07/23 03:45 Source: patient and EMS Mode of arrival: EMS Limitations: no limitations History of Present Illness: 83-year-old male here from assisted history dementia states he went to get to the bathroom 3:00 and fell and did hit his head he has abrasion to his forehead complains of headache along with neck pain denies any other injuries from the fall he is able answer most my questions appropriately is oriented to self and place but is disoriented to time likely consistent with his dementia Associated symptoms-after fall: Reports headache(s) and neck pain; Denies abdominal pain or chest pain Review of Systems Const: Denies: fever(s), chills, body aches or change in appetite Eyes: Denies: blurry vision or eye discomfort ENMT: Denies: throat pain or dental pain Card: Denies: chest pain Resp: Denies: dyspnea GI: Denies: abdominal pain, nausea, vomiting or diarrhea Musc: Reports: neck pain; Denies: back pain Skin/Breast: Denies: rash Neuro: Reports: headache(s) PFSH ED PFSH: Medical History Arthritis of left acromioclavicular joint CAD (coronary artery disease) Chronic constipation Chronic pain Dementia Hypertensive emergency Lewy body dementia Lower urinary tract symptoms (LUTS) Non-ST elevation [place] (NSTEMI) 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 Tamia Foley. Bilateral L3-L4 hemilaminotomy/foraminotomy, with limited discectomy. Bilateral L2-L3 laminotomy/foraminotomy. Family History Grandmother CAD (coronary artery disease) Cancer Myocardial infarct Family/Other Hypertension Mother , at age 95 No problems noted. Father , at age 39 Blood clot associated with vein wall inflammation Social History Smoking and tobacco/nicotine status: never used tobacco/nicotine Alcohol intake: never Substance/Drug Use: never Household members: family and children Marital status: / Current occupational status: retired Physical Exam Const: COMMON NORMALS: no acute distress and healthy appearing ORIENTATION/CONSCIOUSNESS: Yes oriented to person and Yes oriented to place; not oriented to time HENMT: COMMON NORMALS: normocephalic HEAD & SCALP: normocephalic OTHER: Abrasion forehead Eye: COMMON NORMALS: Equal, round and reactive pupils present and EOMs intact bilaterally PUPIL: Yes Equal, round and reactive pupils present Neck/C-Spine: OTHER: Currently in c-collar Chest: COMMONS NORMALS: normal inspection of the chest and normal palpation of entire chest wall Resp: COMMON NORMALS: normal respiratory effort, No retractions, No use of accessory muscles and clear to auscultation bilaterally AUSCULTATION: clear to auscultation bilaterally Cardio: COMMON NORMALS: regular rate, regular rhythm and No murmurs present (Cardio) RATE: regular rate RHYTHM: regular rhythm GI: COMMON NORMALS: Normal to inspection, nondistended, normoactive bowel sounds present, Soft to palpation, non-tender and no masses PALPATION: Yes Soft to palpation Extremity: COMMON NORMALS: normal to inspection and full ROM Neuro: COMMON NORMALS: moves all extremities and no focal motor deficits SENSORIUM/ORIENTATION: Yes oriented to person, Yes oriented to place and No oriented to time Psych: COMMON NORMALS: mental status grossly normal, Normal thought process present and cooperative THOUGHT PROCESS: Normal thought process present Skin: COMMON NORMALS: no rashes or lesions noted and no wounds GENERAL SKIN EXAM: no rashes or lesions noted Course Vital Signs: Vital signs: Vital Signs Temperature 98.1 F 09/07/23 03:46 Pulse Rate 85 09/07/23 03:46 Respiratory Rate 16 09/07/23 03:46 Blood Pressure 163/91 09/07/23 03:46 Pulse Oximetry 95 09/07/23 03:46 Oxygen Delivery Me thod Room Air 09/07/23 03:46 MDM - Fall Medical Decision Making Patient presents here with closed head injury along with neck pain from a fall CTs here are all normal he did complain of some right hip pain x-ray of his hip was normal he is able to stand here weight-bear without any pain at this time he is stable for discharge back to assisted Medical Records I reviewed the patient's medical records. Lab Data I reviewed the patient's lab results. 09/07/23 03:49 09/07/23 04:12 Radiology Impressions Cervical Spine CT 09/07/23 03:45 IMPRESSION: No acute cervical fracture. Head CT 09/07/23 03:45 IMPRESSION: No acute intracranial abnormality. Laboratory Results WBC 10.43 10^3/uL (3.29-11.43) 09/07/23 03:49 RBC 4.23 10^6/uL (3.85-5.65) 09/07/23 03:49 Hgb 13.60 g/dL (11.27-16.99) 09/07/23 03:49 Hct 41.2 % (37-53) 09/07/23 03:49 MCV 97.4 fl (82-101) 09/07/23 03:49 MCH 32.2 pg (27-33) 09/07/23 03:49 MCHC 33.0 g/dL (30-55) 09/07/23 03:49 RDW 13.1 % (12.1-15.1) 09/07/23 03:49 Plt Count 192 10^3/cmm (157-399) 09/07/23 03:49 MPV 11.0 fL (7.4-10.4) H 09/07/23 03:49 Neut % (Auto) 73.7 % 09/07/23 03:49 Lymph % (Auto) 16.0 % 09/07/23 03:49 Lane % (Auto) 8.1 % 09/07/23 03:49 Eos % (Auto) 1.2 % 09/07/23 03:49 Baso % (Auto) 0.6 % 09/07/23 03:49 Neut # (Auto) 7.70 10^3/uL (1.8-7.7) 09/07/23 03:49 Lymph # (Auto) 1.7 10^3/uL (0.8-4.8) 09/07/23 03:49 Lane # (Auto) 0.8 10^3/uL (0.2-0.9) 09/07/23 03:49 Eos # (Auto) 0.1 10^3/uL (0.0-0.8) 09/07/23 03:49 Baso # (Auto) 0.1 10^3/uL (0.0-0.1) 09/07/23 03:49 Nucleated RBC % (auto) 0 % 09/07/23 03:49 Nucleated RBCs # 0.0 /100WBC 09/07/23 03:49 Sodium 137 mmol/L (136-145) 09/07/23 04:12 Potassium 3.9 mmol/L (3.5-5.1) 09/07/23 04:12 Chloride 103 mmol/L (98-107) 09/07/23 04:12 Carbon Dioxide 23 mmol/L (22-29) 09/07/23 04:12 Anion Gap 14.9 (5-19) 09/07/23 04:12 BUN 24 mg/dL (8-23) H 09/07/23 04:12 Creatinine 1.1 mg/dL (0.7-1.2) 09/07/23 04:12 GFR Calculation Not Reportable 09/07/23 04:12 Glucose 113 mg/dL (65-115) 09/07/23 04:12 Calculated Osmolality 289 mOsm/kg (285-295) 09/07/23 04:12 Calcium 9.2 mg/dL (8.5-10.5) 09/07/23 04:12 Total Bilirubin 0.7 mg/dL (0.15-1.2) 09/07/23 04:12 AST 11 U/L (0-40) 09/07/23 04:12 ALT 8 U/L (0-41) 09/07/23 04:12 Alkaline Phosphatase 106 U/L (40-130) 09/07/23 04:12 Total Protein 6.5 g/dL (6.6-8.7) L 09/07/23 04:12 Albumin 3.9 g/dL (3.5-5.2) 09/07/23 04:12 Globulin 2.6 g/dL (1.3-4.6) 09/07/23 04:12 XR interpretation done by ED provider, pending radiology final review ED provider radiology interpretation(s): xr hip: no acute fx Discharge Plan Discharge Patient Disposition: Home Clinical Impression: Closed head injury, Fall Condition: Stable Prescriptions: No Action Stool Softener 50 mg capsule 50 - 100 mg PO DAILY PRN (Reason: Constipation) oxybutynin chloride 5 mg tablet 5 mg PO BID carboxymethylcellulose sodium 1 % drops, liquid gel 1 drp ophthalmic (eye) BID PRN (Reason: Dry Eye(S)) nitroglycerin 0.4 mg tablet, sublingual 0.4 mg sublingual Q5M PRN (Reason: chest pain) Qty: 25 3RF Rx Instructions: do not exceed 3 doses per episode midodrine 5 mg tablet 5 mg PO TID 90 Days Qty: 270 1RF Rx Instructions: do not give last dose of day after 6PM or within 4 hrs of bedtime ondansetron 4 mg tablet,disintegrating 4 mg PO Q8H PRN galantamine 4 mg tablet 4 mg PO BID Qty: 60 2RF Rx Instructions: administer with AM and PM meals watch for nausea carbidopa-levodopa 25-100 mg tablet See Rx Instructions .ROUTE .COMPLEX Qty: 360 3RF Dose Instruction: TAKE 1 TABLET BY MOUTH IN THE MORNING, 1 TABLET AT NOON, 1 IN THE AFTERNOON, AND 1 AT 4 PM Rx Instructions: TAKE 1 TABLET BY MOUTH IN THE MORNING, 1 TABLET AT NOON, 1 IN THE AFTERNOON, AND 1 AT 4 PM Celexa 40 mg tablet 20 mg PO BEDTIME Qty: 90 3RF Myrbetriq 25 mg tablet extended release 24 hr 25 mg PO DAILY Qty: 30 5RF cholecalciferol (vitamin D3) [Vitamin D3] 25 mcg (1,000 unit) Tablet 75 mcg PO QAM polyethylene glycol 3350 [Miralax] 17 gram powder in packet 17 g PO DAILY PRN (Reason: Constipation) Tylenol Extra Strength 500 mg tablet 1,000 mg PO BID PRN (Reason: Pain) isosorbide mononitrate 30 mg tablet extended release 24 hr 15 mg PO BEDTIME aspirin 81 mg Tablet,Delayed Release (Dr/Ec) 81 mg PO QAM Thc Gummies 0.5 tab PO DAILY miconazole nitrate 2 % Powder See Rx Instructions .ROUTE .COMPLEX Rx Instructions: apply topically three times a day as needed for fungal infection or to rectum Pepcid 20 mg Tablet 20 mg PO BID PRN (Reason: Heartburn) Lidocaine Viscous 2 % Solution See Rx Instructions .ROUTE .COMPLEX Rx Instructions: mix with water and use as directed as needed zinc oxide 40 % Ointment 1 applic TOPICAL DAILY pantoprazole 40 mg tablet,delayed release (DR/EC) 40 mg PO DAILY@12 Flomax 0.4 mg capsule 0.4 mg PO DAILY Qty: 20 0RF Discharge Orders: Discharge ED (Routine); Ordered 09/07/23 Ordered By: Catrachito Tony Referrals: Minnie Coello MD [Primary Care Provider] - 1-3 days Discharge Diet: Advance as tolerated Discharge Activity: Resume usual activity Patient Instructions: Head Injury (ED) Coding Level of Care Code ED Junior Underwriter for Krystyna Antony
[2023-09-07 03:55] LABS: Basophils # 0.1 10^3/uL (0.0-0.1); Basophils % 0.6 %; Eosinophils # 0.1 10^3/uL (0.0-0.8); Eosinophils % 1.2 %; Hematocrit 41.2 % (37-53); Lymphocytes # 1.7 10^3/uL (0.8-4.8); Mean Corpuscular Hemoglobin 32.2 pg (27-33); Mean Corpuscular Volume 97.4 fl (82-101); Monocytes # 0.8 10^3/uL (0.2-0.9); Monocytes % 8.1 %; Neutrophils % 73.7 %; Nucleated Red Blood Cells % 0 %; Platelet Count 192 10^3/cmm (157-399); Red Blood Count 4.23 10^6/uL (3.85-5.65); Red Cell Distribution Width 13.1 % (12.1-15.1); White Blood Count 10.43 10^3/uL (3.29-11.43)
--- NOTE | 2023-09-07 04:32 | XRR_ITS ---
PROCEDURE INFORMATION: Exam: XR Pelvis Exam date and time: 09/07/2023 5:13 AM Age: 83 years old Clinical indication: Pelvic pain; Patient HX: HX prostate cancer; Additional info: Fall TECHNIQUE: Imaging protocol: Radiologic exam of the pelvis. Views: 1 or 2 view. COMPARISON: CT abdomen pelvis con [id number] 02/14/2020 5:34 PM FINDINGS: Bones/joints: Degenerative change in both hip joints. No evidence of fracture or dislocation Soft tissues: Unremarkable. Other findings: Brachy therapy seeds project over the pelvis. XR/XR pelvis 1-2V* [id number] IMPRESSION: Degenerative change in both hip joints. No acute process
[2023-09-07 04:33] LABS: Alanine Aminotransferase 8 U/L (0-41); Albumin Level 3.9 g/dL (3.5-5.2); Alkaline Phosphatase 106 U/L (40-130); Anion Gap 14.9 (5-19); Aspartate Amino Transferase 11 U/L (0-40); Blood Urea Nitrogen 24 mg/dL (8-23); Calcium 9.2 mg/dL (8.5-10.5); Carbon Dioxide 23 mmol/L (22-29); Chloride 103 mmol/L (98-107); Globulin 2.6 g/dL (1.3-4.6); Glucose 113 mg/dL (65-115); Osmolality Calculated 289 mOsm/kg (285-295); Potassium 3.9 mmol/L (3.5-5.1); Sodium 137 mmol/L (136-145); Total Bilirubin 0.7 mg/dL (0.15-1.2); Total Protein 6.5 g/dL (6.6-8.7)
--- NOTE | 2023-09-07 05:18 | XRR_ITS ---
PROCEDURE INFORMATION: Exam: XR Right Hip Exam date and time: 09/07/2023 5:23 AM Age: 83 years old Clinical indication: Injury or trauma; Fall; Blunt trauma (contusions or hematomas); Does not apply; Injury details: PT says pain is in the center of his pelvic region; Patient HX: HX prostate cancer TECHNIQUE: Imaging protocol: Radiologic exam of the right hip. Views: 1 view hip with pelvis when performed. COMPARISON: CR (PELVIS, ) 09/07/2023 5:13 AM FINDINGS: Bones/joints: Degenerative change. No evidence of fracture or dislocation Soft tissues: Unremarkable. XR/XR hip RT 2-3V wo/w pel* [id number] IMPRESSION: Degenerative change. No evidence of fracture or dislocation.
--- NOTE | 2023-09-07 05:47 | PC.NURSE ---
Patient up in room and assisted with ambulation. Pt able to move without pain.
[2023-09-07 05:53] VITALS: BP 155/86; PULSE 72; RESP 16; O2SAT 96
== END 2023-09-07 05:55 | disposition home or self-care (01) ==
PROVIDERS: Emergency Provider Emergency Medicine; PCP Family Medicine
DX: S09.8XXA Other specified injuries of head, initial encounter (principal); Z79.82 Long term (current) use of aspirin; I25.10 Atherosclerotic heart disease of native coronary artery without angina pectoris; G31.83 Neurocognitive disorder with Lewy bodies; F02.80 Dementia in other diseases classified elsewhere, unspecified severity, without behavioral disturbance, psychotic disturbance, mood disturbance, and anxiety; I25.2 Old myocardial infarction; G20.A1 Parkinson's disease without dyskinesia, without mention of fluctuations; Z85.46 Personal history of malignant neoplasm of prostate; W19.XXXA Unspecified fall, initial encounter; Y92.121 Bathroom in nursing home as the place of occurrence of the external cause
CPT/HCPCS: 70450; 72125; 72170; 73502; 80053; 85025; 99284

== ENCOUNTER 2023-09-08 20:59 | Emergency (ER) | payer OTHER, SELFPAY ==
[2023-09-08 21:00] VITALS: BP 148/76; PULSE 93; RESP 16; TEMP 37.8; O2SAT 96
--- NOTE | 2023-09-08 21:03 | W.ED.AMS ---
HPI - Altered Mental Status General: Chief Complaint: Altered Mental Status Stated Complaint: AMS Time Seen by Provider: 09/08/23 21:02 History of Present Illness: 83-year-old male patient that resides at [facility] slipped and fell this evening. Patient has Parkinson's disease and dementia. Family reports that he seems to be acting different. Patient endorses low back pain. Patient endorses a cough. Patient reports no other symptoms of illness or injury. Review of Systems General: Reports: 10 or more systems reviewed and unremarkable except in HPI and below Const: Reports: chills; Denies: fever(s) Card: Denies: chest pain Resp: Reports: non-productive cough GI: Denies: nausea, vomiting, diarrhea or constipation : Denies: difficulty urinating Musc: Reports: back pain (Low back) Skin/Breast: Reports: new lesions (Abrasion forehead old); Denies: rash PFSH ED PFSH: Medical History Arthritis of left acromioclavicular joint CAD (coronary artery disease) Chronic constipation Chronic pain Dementia Hypertensive emergency Lewy body dementia Lower urinary tract symptoms (LUTS) Non-ST elevation [place] (NSTEMI) 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 Tamia Foley. Bilateral L3-L4 hemilaminotomy/foraminotomy, with limited discectomy. Bilateral L2-L3 laminotomy/foraminotomy. Family History Grandmother CAD (coronary artery disease) Cancer Myocardial infarct Family/Other Hypertension Mother , at age 95 No problems noted. Father , at age 39 Blood clot associated with vein wall inflammation Social History Smoking and tobacco/nicotine status: never used tobacco/nicotine Alcohol intake: never Substance/Drug Use: never Household members: family and children Marital status: / Current occupational status: retired Physical Exam Const: COMMON NORMALS: alert HENMT: COMMON NORMALS: normocephalic and Normal external nose present HEAD & SCALP: normocephalic and other (Abrasion central forehead 1 to 2 days old) NOSE: Normal external nose present THROAT: posterior oropharynx normal Neck/C-Spine: CERVICAL SPINE: No Cervical spine tenderness Lymph: LYMPHATIC: no lymphadenopathy noted Chest: COMMONS NORMALS: normal inspection of the chest and normal palpation of entire chest wall Resp: COMMON NORMALS: normal respiratory effort and clear to auscultation bilaterally AUSCULTATION: clear to auscultation bilaterally Cardio: COMMON NORMALS: regular rhythm RHYTHM: regular rhythm GI: COMMON NORMALS: Soft to palpation and non-tender PALPATION: Yes Soft to palpation : COMMON NORMALS: Yes no CVA tenderness BLADDER/KIDNEY EXAM: Yes no CVA tenderness Back/Pelvis: COMMON NORMALS: no CVA tenderness THORACIC SPINE/UPPER BACK: No thoracic spinal tenderness LUMBAR SPINE/LOWER BACK: Yes lumbar spinal tenderness Lumbar spinal tenderness location: L4 and L5 Extremity: COMMON NORMALS: normal to inspection Neuro: SENSORIUM/ORIENTATION: Yes alert Skin: TRAUMA: abrasion (Appears older than 24 hours) Sepsis: Is patient septic: No Course Vital Signs: Vital signs: Vital Signs Temperature 98.1 F 09/08/23 21:08 Pulse Rate 93 09/08/23 21:08 Respiratory Rate 18 09/08/23 21:08 Blood Pressure 148/76 09/08/23 21:00 Pulse Oximetry 95 09/08/23 21:08 Oxygen Delivery Me thod Room Air 09/08/23 21:00 MDM - Altered Mental Status Medical Decision Making 83-year-old male patient was brought in from [facility] for concerns of weakness and frequent falls. On exam patient appears nontoxic. Patient does have an abrasion to his central forehead that appears greater than 24 hours old. Pupils are equal and reactive. Patient moves all extremities well. Patient has some pain in his lumbar spine around L4-L5. Vital signs are normal except for temperature of 100.1. Differential diagnosis includes febrile illness, sepsis, pneumonia, intracranial bleeding, spinal fracture, urinary tract infection. No signs of sepsis was noted. CBC showed a white blood cell count of 10,000, CMP was unremarkable, urinalysis had a increase amount of white blood cells under high-powered field, and positive nitrates. Believe the patient has a urinary tract infection which is probably increasing his weakness and may be adding to his dementia. Patient was given 1 g Rocephin in the ER, 500 mL of fluid, and will be continued on cefdinir at the long-term. Lab Data 09/08/23 22:09/08/23 22: Radiology Impressions Chest X-Ray 09/08/23: IMPRESSION: No acute findings. Head CT 09/08/23: IMPRESSION: 1. No acute intracranial abnormality. 2. Moderate age-related changes. Lumbar Spine X-Ray 09/08/23 IMPRESSION: 1. Severe lumbar degenerative change. 2. No fracture noted. Laboratory Results WBC 10.79 10^3/uL (3.29-11.43) 09/08/23: RBC 3.86 10^6/uL (3.85-5.65) 09/08/23 22: Hgb 12.40 g/dL (11.27-16.99) 09/08/23 22: Hct 38.6 % (37-53) 09/08/23: MCV 100.0 fl (82-101) 09/08/23 22: MCH 32.1 pg (27-33) 09/08/23: MCHC 32.1 g/dL (30-55) 09/08/23: RDW 12.9 % (12.1-15.1) 09/08/23 22: Plt Count 164 10^3/cmm (157-399) 09/08/23: MPV 10.6 fL (7.4-10.4) H 09/08/23: Neut % (Auto) 81.8 % 09/08/23 22: Lymph % (Auto) 6.9 % 09/08/23 22: [place] % (Auto) 10.2 % 09/08/23: Eos % (Auto) 0.3 % 09/08/23: Baso % (Auto) 0.5 % 09/08/23 22:01 Neut # (Auto) 8.84 10^3/uL (1.8-7.7) H 09/08/23 22:01 Lymph # (Auto) 0.7 10^3/uL (0.8-4.8) L 09/08/23 22:01 [place] # (Auto) 1.1 10^3/uL (0.2-0.9) H 09/08/23 22:01 Eos # (Auto) 0.0 10^3/uL (0.0-0.8) 09/08/23 22:01 Baso # (Auto) 0.1 10^3/uL (0.0-0.1) 09/08/23 22:01 Nucleated RBC % (auto) 0 % 09/08/23 22:01 Nucleated RBCs # 0.0 /100WBC 09/08/23 22:01 Sodium 141 mmol/L (136-145) 09/08/23 22:01 Potassium 4.5 mmol/L (3.5-5.1) 09/08/23 22:01 Chloride 106 mmol/L (98-107) 09/08/23 22:01 Carbon Dioxide 23 mmol/L (22-29) 09/08/23 22:01 Anion Gap 16.5 (5-19) 09/08/23 22:01 BUN 18 mg/dL (8-23) 09/08/23 22:01 Creatinine 1.0 mg/dL (0.7-1.2) 09/08/23 22:01 GFR Calculation Not Reportable 09/08/23 22: Glucose 100 mg/dL (65-115) 09/08/23 22:01 Calculated Osmolality 294 mOsm/kg (285-295) 09/08/23 22:01 Lactic Acid 2.2 mmol/L (0.5-2.2) 09/08/23 22:01 Calcium 9.0 mg/dL (8.5-10.5) 09/08/23 22:01 Total Bilirubin 0.4 mg/dL (0.15-1.2) 09/08/23 22:01 AST 11 U/L (0-40) 09/08/23 22:01 ALT < 5 U/L (0-41) 09/08/23 22:01 Alkaline Phosphatase 117 U/L (40-130) 09/08/23 22:01 Total Protein 6.1 g/dL (6.6-8.7) L 09/08/23 22:01 Albumin 4.1 g/dL (3.5-5.2) 09/08/23 22:01 Globulin 2.0 g/dL (1.3-4.6) 09/08/23 22:01 Urine Color Yellow (Yellow) 09/08/23 21:48 Urine Appearance Clear (CLEAR) 09/08/23 21:48 Urine pH 5 (5-7) 09/08/23 21:48 Ur Specific [place] 1.020 (1.005-1.030) 09/08/23 21:48 Urine Protein Neg (Negative) 09/08/23 21:48 Urine Glucose (UA) Norm (Normal) 09/08/23 21:48 Urine Ketones Negative (Negative) 09/08/23 21:48 Urine Blood Neg (Negative) 09/08/23 21:48 Urine Nitrate Positive (Negative) H 09/08/23 21:48 Urine Bilirubin Neg (Negative) 09/08/23 21:48 Urine Urobilinogen Norm mg/dL (Negative) 09/08/23 21:48 Ur Leukocyte Esterase Negative (Negative) 09/08/23 21:48 Urine RBC 0-4 /hpf (0-2) H 09/08/23 21:48 Urine WBC 5-10 /hpf (0-5) H 09/08/23 21:48 Ur Squamous Epith Cells 0-4 /hpf (0-5) H 09/08/23 21:48 Amorphous Sediment Not Reportable 09/08/23 21:48 Urine Bacteria 3+ /hpf (NONE) H 09/08/23 21:48 Influenza Type A Ag negative (Negative) 09/08/23 21:15 Influenza Type B Ag negative (Negative) 09/08/23 21:15 SARS-CoV-2 Ag (Rapid) negative (Negative) 09/08/23 21:15 All radiology interpretation(s) finalized by discharge Discharge Plan Discharge Patient Disposition: Home Clinical Impression: Weakness generalized, Acute UTI Fall Qualifiers: Encounter type: initial encounter Qualified Code(s): W19.XXXA - Unspecified fall, initial encounter Condition: Stable Prescriptions: New cefdinir 300 mg capsule 300 mg PO BID 5 Days Qty: 10 0RF No Action Stool Softener 50 mg capsule 50 - 100 mg PO DAILY PRN (Reason: Constipation) oxybutynin chloride 5 mg tablet 5 mg PO BID carboxymethylcellulose sodium 1 % drops, liquid gel 1 drp ophthalmic (eye) BID PRN (Reason: Dry Eye(S)) nitroglycerin 0.4 mg tablet, sublingual 0.4 mg sublingual Q5M PRN (Reason: chest pain) Qty: 25 3RF Rx Instructions: do not exceed 3 doses per episode midodrine 5 mg tablet 5 mg PO TID 90 Days Qty: 270 1RF Rx Instructions: do not give last dose of day after 6PM or within 4 hrs of bedtime ondansetron 4 mg tablet,disintegrating 4 mg PO Q8H PRN galantamine 4 mg tablet 4 mg PO BID Qty: 60 2RF Rx Instructions: administer with AM and PM meals watch for nausea carbidopa-levodopa 25-100 mg tablet See Rx Instructions .ROUTE .COMPLEX Qty: 360 3RF Dose Instruction: TAKE 1 TABLET BY MOUTH IN THE MORNING, 1 TABLET AT NOON, 1 IN THE AFTERNOON, AND 1 AT 4 PM Rx Instructions: TAKE 1 TABLET BY MOUTH IN THE MORNING, 1 TABLET AT NOON, 1 IN THE AFTERNOON, AND 1 AT 4 PM Celexa 40 mg tablet 20 mg PO BEDTIME Qty: 90 3RF Myrbetriq 25 mg tablet extended release 24 hr 25 mg PO DAILY Qty: 30 5RF cholecalciferol (vitamin D3) [Vitamin D3] 25 mcg (1,000 unit) Tablet 75 mcg PO QAM polyethylene glycol 3350 [Miralax] 17 gram powder in packet 17 g PO DAILY PRN (Reason: Constipation) Tylenol Extra Strength 500 mg tablet 1,000 mg PO BID PRN (Reason: Pain) isosorbide mononitrate 30 mg tablet extended release 24 hr 15 mg PO BEDTIME aspirin 81 mg Tablet,Delayed Release (Dr/Ec) 81 mg PO QAM Thc Gummies 0.5 tab PO DAILY miconazole nitrate 2 % Powder See Rx Instructions .ROUTE .COMPLEX Rx Instructions: apply topically three times a day as needed for fungal infection or to rectum Pepcid 20 mg Tablet 20 mg PO BID PRN (Reason: Heartburn) Lidocaine Viscous 2 % Solution See Rx Instructions .ROUTE .COMPLEX Rx Instructions: mix with water and use as directed as needed zinc oxide 40 % Ointment 1 applic TOPICAL DAILY pantoprazole 40 mg tablet,delayed release (DR/EC) 40 mg PO DAILY@12 Flomax 0.4 mg capsule 0.4 mg PO DAILY Qty: 20 0RF Discharge Orders: Discharge ED (Routine); Ordered 09/08/23 Ordered By: Escobar Espinoza Referrals: Minnie Coello MD [Primary Care Provider] - Discharge Diet: Usual diet Discharge Activity: Increase activity as tolerated Patient Instructions: Urinary Tract Infection in Older Adults (ED) Activity Restrictions/Additional Instructions: Encourage plenty of fluids. Continue antibiotics by mouth for the next 5 days. Recheck urine in 5 days. Follow-up with primary care for further instructions. Return to emergency department for worsening symptoms. Coding Level of Care Code ED Supervisor Airplane Flight Attendant for Krystyna Antony
--- NOTE | 2023-09-08 21:07 | XRR_ITS ---
PROCEDURE INFORMATION: Exam: XR Lumbosacral Spine Exam date and time: 09/08/2023 9:12 PM Age: 83 years old Clinical indication: Injury or trauma; Blunt trauma (contusions or hematomas); Prior surgery; Surgery date: 6+ months; Surgery type: Lumbar laminectomy. Prostate seeds; Patient HX: [facility]. C/O low back pain. TECHNIQUE: Imaging protocol: Radiologic exam of the lumbosacral spine. Views: 2 or 3 views. COMPARISON: CR XR lumbar spine 2-3V* [id number] 02/17/2023 8:06 PM FINDINGS: Bones/joints: Severe diffuse lumbar degenerative change with loss of disc space and osteophyte formation. No acute fracture noted. [id number] bilateral hip DJD. Soft tissues: Unremarkable. Advanced diffuse vascular calcification noted. Other findings: Prostatic radiation seeds. XR/XR lumbar spine 2-3V* [id number] IMPRESSION: 1. Severe lumbar degenerative change. 2. No fracture noted.
--- NOTE | 2023-09-08 21:07 | XRR_ITS ---
PROCEDURE INFORMATION: Exam: XR Chest Exam date and time: 09/08/2023 9:12 PM Age: 83 years old Clinical indication: Cough; Prior surgery; Surgery date: 6+ months; Surgery type: Gb; Additional info: Cough, AMS TECHNIQUE: Imaging protocol: Radiologic exam of the chest. Views: 1 view. COMPARISON: CR (CHEST, ) 07/25/2023 9:48 PM FINDINGS: Lungs: Unremarkable. No consolidation. Pleural spaces: Unremarkable. No pleural effusion. No pneumothorax. Heart/Mediastinum: Unremarkable. No cardiomegaly. Bones/joints: Unremarkable. XR/XR chest 1V portable [id number] IMPRESSION: No acute findings.
--- NOTE | 2023-09-08 21:07 | CTR_ITS ---
PROCEDURE INFORMATION: Exam: CT Head Without Contrast Exam date and time: 09/08/2023 9:22 PM Age: 83 years old Clinical indication: Injury or trauma; Blunt trauma (contusions or hematomas); Patient HX: From retirement for fall with head strike. History of parkinson's and dementia. ; Additional info: Fall, head injury, AMS TECHNIQUE: Imaging protocol: Computed tomography of the head without contrast. Radiation optimization: All CT scans at this facility use at least one of these dose optimization techniques: automated exposure control; mA and/or kV adjustment per patient size (includes targeted exams where dose is matched to clinical indication); or iterative reconstruction. REPORTING DATA: Count of CT and Cardiac NM exams in prior 12 months: This patient has received 12 known CTs and 0 known cardiac nuclear medicine studies in the 12 months prior to the current study. COMPARISON: CT head wo con* [id number] 09/07/2023 3:57 AM RADIATION DOSE METRICS: Total DLP (mGy-cm): 1244.7 FINDINGS: Brain: No focal hemorrhage or midline shift is identified. The ventricles and parenchyma show moderate atrophy and chronic bicerebral white matter ischemic change. Cerebral ventricles: No ventriculomegaly or evidence of hydrocephalus. Paranasal sinuses: No evidence of acute sinusitis. Mastoid air cells: Visualized mastoid air cells are well aerated. Bones/joints: No displaced skull fracture is noted. Soft tissues: Unremarkable. Vasculature: Diffuse vascular calcifications are present. CT/CT head wo con* [id number] IMPRESSION: 1. No acute intracranial abnormality. 2. Moderate age-related changes.
[2023-09-08 21:08] VITALS: PULSE 93; RESP 18; TEMP 36.7; O2SAT 95
[2023-09-08 21:37] LABS: Influenza A by IFA negative (Negative); Influenza B by IFA negative (Negative); SARS Covid-2 Antigen negative (Negative)
[2023-09-08 22:07] LABS: Basophils # 0.1 10^3/uL (0.0-0.1); Basophils % 0.5 %; Eosinophils % 0.3 %; Hematocrit 38.6 % (37-53); Lymphocytes # 0.7 10^3/uL (0.8-4.8); Lymphocytes % 6.9 %; Mean Corpuscular HGB Conc 32.1 g/dL (30-55); Mean Corpuscular Hemoglobin 32.1 pg (27-33); Mean Platelet Volume 10.6 fL (7.4-10.4); Monocytes # 1.1 10^3/uL (0.2-0.9); Monocytes % 10.2 %; Neutrophils # 8.84 10^3/uL (1.8-7.7); Neutrophils % 81.8 %; Nucleated Red Blood Cells % 0 %; Platelet Count 164 10^3/cmm (157-399); Red Blood Count 3.86 10^6/uL (3.85-5.65); Red Cell Distribution Width 12.9 % (12.1-15.1); White Blood Count 10.79 10^3/uL (3.29-11.43)
[2023-09-08 22:07] LABS: Bilirubin Urine Neg (Negative); Blood Urine Neg (Negative); Glucose Urine UA Norm (Normal); Ketones Urine Negative (Negative); Leukocyte Esterase Urine Negative (Negative); Nitrate Urine Positive (Negative); Protein Urine Neg (Negative); Urine Appearance Clear (CLEAR); Urine Color Yellow (Yellow); Urobilinogen Urine Norm (Negative); pH Urine 5 (5-7)
[2023-09-08 22:08] LABS: Add Urine Culture? Yes; Add Urine Microscopic? YES; Bacteria Urine 3+ /hpf; RBC Urine 0-4 /hpf (0-2); Squamous Epithelial Cell Urine 0-4 /hpf (0-5)
[2023-09-08 22:25] LABS: Lactic Sepsis W/Reflex 2.2 mmol/L (0.5-2.2)
[2023-09-08 22:27] LABS: Alanine Aminotransferase < 5 U/L (0-41); Albumin Level 4.1 g/dL (3.5-5.2); Alkaline Phosphatase 117 U/L (40-130); Anion Gap 16.5 (5-19); Aspartate Amino Transferase 11 U/L (0-40); Blood Urea Nitrogen 18 mg/dL (8-23); Carbon Dioxide 23 mmol/L (22-29); Chloride 106 mmol/L (98-107); Glucose 100 mg/dL (65-115); Osmolality Calculated 294 mOsm/kg (285-295); Potassium 4.5 mmol/L (3.5-5.1); Sodium 141 mmol/L (136-145); Total Bilirubin 0.4 mg/dL (0.15-1.2); Total Protein 6.1 g/dL (6.6-8.7)
[2023-09-08] MEDS: cefTRIAXone 1,000 MG in sodium chloride 0.9% (plus) 50 ML 100 MG IV (22:28)
[2023-09-08] MEDS: sodium chloride 0.9% 500 ML 999 ML IV (22:29)
[2023-09-08 22:37] VITALS: BP 173/83; PULSE 82; O2SAT 94
[2023-09-08 22:52] VITALS: BP 173/83; PULSE 81; RESP 16; O2SAT 95
[2023-09-08 23:52] LABS: Reflex Lactate Order REFLEX LACTIC ORDERD
== END 2023-09-08 23:15 | disposition home or self-care (01) ==
PROVIDERS: Emergency Provider Nurse Practitioner Family; PCP Family Medicine
DX: R53.1 Weakness (principal); N39.0 Urinary tract infection, site not specified; Z79.82 Long term (current) use of aspirin; Z11.52 Encounter for screening for COVID-19; I25.10 Atherosclerotic heart disease of native coronary artery without angina pectoris; G20.A1 Parkinson's disease without dyskinesia, without mention of fluctuations; F02.80 Dementia in other diseases classified elsewhere, unspecified severity, without behavioral disturbance, psychotic disturbance, mood disturbance, and anxiety; G31.83 Neurocognitive disorder with Lewy bodies; I25.2 Old myocardial infarction; Z85.46 Personal history of malignant neoplasm of prostate
CPT/HCPCS: 36415; 51701; 70450; 71045; 72100; 80053; 81001; 83605; 85025; 87040; 87077; 87086; 87186; 87426; 87804; 96365; 99285; J0696; J7040

== ENCOUNTER → 2023-09-15 11:44 | Outpatient (BNVA) | payer OTHER, MEDICARE, SELFPAY | PROVIDERS: PCP Family Medicine; Visit Provider Internal Medicine Cardiovascular Disease | DX: R55 Syncope and collapse (principal); I25.119 Atherosclerotic heart disease of native coronary artery with unspecified angina pectoris; G31.83 Neurocognitive disorder with Lewy bodies; F02.80 Dementia in other diseases classified elsewhere, unspecified severity, without behavioral disturbance, psychotic disturbance, mood disturbance, and anxiety; M51.16 Intervertebral disc disorders with radiculopathy, lumbar region; I10 Essential (primary) hypertension | CPT/HCPCS: 99214 ==

== ENCOUNTER 2023-09-25 21:34 | Emergency (ER) | payer OTHER, SELFPAY ==
[2023-09-25 21:36] VITALS: BP 178/81; PULSE 67; RESP 18; TEMP 36.6; O2SAT 97; BMI 29.0
--- NOTE | 2023-09-25 21:40 | CTR_ITS ---
PROCEDURE INFORMATION: Exam: CT Head Without Contrast Exam date and time: 09/25/2023 10:54 PM Age: 83 years old Clinical indication: Injury or trauma; Blunt trauma (contusions or hematomas); Patient HX: From shelter for fall with head strike. Lac to left eyebrow. History of parkinsons and dementia. ; Additional info: Syncope fall TECHNIQUE: Imaging protocol: Computed tomography of the head without contrast. Radiation optimization: All CT scans at this facility use at least one of these dose optimization techniques: automated exposure control; mA and/or kV adjustment per patient size (includes targeted exams where dose is matched to clinical indication); or iterative reconstruction. REPORTING DATA: Count of CT and Cardiac NM exams in prior 12 months: This patient has received 13 known CTs and 0 known cardiac nuclear medicine studies in the 12 months prior to the current study. COMPARISON: CT head wo con* [id number] 09/08/2023 9:22 PM RADIATION DOSE METRICS: Total DLP (mGy-cm): 1053.98 FINDINGS: Brain: Subcortical and periventricular white matter changes consistent with small-vessel ischemic disease in the appropriate clinical setting. Small-vessel ischemic disease. No acute intracranial abnormality. Cerebral ventricles: No ventriculomegaly. Paranasal sinuses: Visualized sinuses are unremarkable. No fluid levels. Mastoid air cells: Visualized mastoid air cells are well aerated. Bones/joints: Unremarkable. No acute fracture. Soft tissues: Unremarkable. CT/CT head wo con* [id number] IMPRESSION: 1. No acute intracranial abnormality. 2. Small-vessel ischemic disease.
--- NOTE | 2023-09-25 21:40 | ECG_ITS ---
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 Measurements Intervals [place] Rate: 68 P: 29 MN: 178 QRS: -17 QRSD: 129 T: 22 QT: 427 QTc: 455 Interpretive Statements SINUS RHYTHM WITH OCCASIONAL VENTRICULAR PREMATURE COMPLEXES RIGHT BUNDLE BRANCH BLOCK [120+ ms QRS DURATION, UPRIGHT V1, 40+ ms S IN I/aVL/V4/V5/V6] Compared to ECG 07/25/2023 21:42:29 Ventricular premature complex(es) now present Left-axis deviation no longer present Myocardial infarct finding no longer present Electronically Signed On 09-25-2023 22:31:17 TRANSACTIONAL ATTORNEY by Pauline Chiu M.D. [id number]
--- NOTE | 2023-09-25 21:43 | ED_ITS ---
HPI - Fall General: Chief Complaint: Fall Stated Complaint: FALL Time Seen by Provider: 09/25/23 21:35 History of Present Illness: Patient arrived free of [place] via EMS with complaints of a fall and left head trauma. Patient said he passed out fell down hit his head. Patient is not currently on any active anticoagulation other than aspirin and fish oil. Patient does have dementia and Parkinson's disease. Patient has a lack above his left eyebrow that bleeding is controlled. Patient denies any other pain at this time. 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 Tamia Foley. Bilateral L3-L4 hemilaminotomy/foraminotomy, with limited discectomy. Bilateral L2-L3 laminotomy/foraminotomy. Family History Grandmother CAD (coronary artery disease) Cancer Myocardial infarct Family/Other Hypertension Mother , at age 95 No problems noted. Father , at age 39 Blood clot associated with vein wall inflammation Social History Smoking and tobacco/nicotine status: never used tobacco/nicotine Alcohol intake: never Substance/Drug Use: never Household members: family and children Marital status: / Current occupational status: retired Physical Exam Const: COMMON NORMALS: no acute distress, average body habitus, no limitations, healthy appearing, alert and well nourished HENMT: COMMON NORMALS: normocephalic, hearing grossly normal bilaterally, external ears normal, Normal external nose present, moist oral mucous membranes and oropharynx normal; head/scalp not atraumatic (Small abrasion laceration left lateral eyebrow) HEAD & SCALP: normocephalic; not atraumatic (Small abrasion laceration left lateral eyebrow) NOSE: Normal external nose present EXTERNAL EAR: Yes external ears normal Eye: COMMON NORMALS: Equal, round and reactive pupils present, conjunctivae normal and no scleral icterus CONJUNCTIVA: Yes conjunctivae normal PUPIL: Yes Equal, round and reactive pupils present Neck/C-Spine: COMMON NORMALS: full ROM, no lymphadenopathy, supple, no meningeal signs, no JVD and Thyroid normal THYROID: Thyroid normal Chest: COMMONS NORMALS: normal inspection of the chest and normal palpation of entire chest wall Resp: COMMON NORMALS: normal respiratory effort, No retractions, No use of accessory muscles and clear to auscultation bilaterally AUSCULTATION: clear to auscultation bilaterally Cardio: COMMON NORMALS: no JVD, regular rate, regular rhythm, S1 normal heart sound present, S2 normal heart sound present, No gallops present (Cardio), No murmurs present (Cardio) and No rub (Cardio) RATE: regular rate RHYTHM: regular rhythm HEART SOUNDS: S1 normal heart sound present and S2 normal heart sound present GI: COMMON NORMALS: Normal to inspection, nondistended, normoactive bowel sounds present, Soft to palpation, non-tender, No hepatosplenomegaly present and no masses PALPATION: Yes Soft to palpation and Yes No hepatosplenomegaly present Neuro: SENSORIUM/ORIENTATION: Yes alert MENINGEAL SIGNS: Yes no meningeal signs Course Vital Signs: Vital signs: Vital Signs Temperature 97.9 F 09/25/23 21:36 Pulse Rate 67 09/25/23 21:36 Respiratory Rate 18 09/25/23 21:36 Blood Pressure 178/81 09/25/23 21:36 Pulse Oximetry 97 09/25/23 21:36 Oxygen Delivery Me thod Room Air 09/25/23 21:36 MDM - Fall Medical Decision Making Patient presents to the ER with complaints of fall hitting his head and left eyebrow skin lack. Lab work was obtained which was essentially benign, head CT showed no acute intracranial abnormality, head lack was Steri-Stripped with good success. Patient be discharged back to the facility. Differential Diagnosis Likely syncope; Unlikely dislocation of shoulder region, compression fracture, concussion with loss of consciousness or concussion without loss of consciousness Medical Records I reviewed the patient's medical records. Lab Data I reviewed the patient's lab results. 09/25/23 21:50 09/25/23 21:[address] 09/25/23 21:40 IMPRESSION: 1. No acute intracranial abnormality. 2. Small-vessel ischemic disease. Laboratory Results WBC 8.12 10^3/uL (3.29-11.43) 09/25/23 21:50 RBC 3.67 10^6/uL (3.85-5.65) L 09/25/23 21:50 Hgb 11.80 g/dL (11.27-16.99) 09/25/23 21:50 Hct 35.9 % (37-53) L 09/25/23 21:50 MCV 97.8 fl (82-101) 09/25/23 21:50 MCH 32.2 pg (27-33) 09/25/23 21:50 MCHC 32.9 g/dL (30-55) 09/25/23 21:50 RDW 12.9 % (12.1-15.1) 09/25/23 21:50 Plt Count 161 10^3/cmm (157-399) 09/25/23 21:50 MPV 10.2 fL (7.4-10.4) 09/25/23 21:50 Neut % (Auto) 64.5 % 09/25/23 21:50 Lymph % (Auto) 23.0 % 09/25/23 21:50 [place] % (Auto) 10.1 % 09/25/23 21:50 Eos % (Auto) 1.7 % 09/25/23 21:50 Baso % (Auto) 0.5 % 09/25/23 21:50 Neut # (Auto) 5.23 10^3/uL (1.8-7.7) 09/25/23 21:50 Lymph # (Auto) 1.9 10^3/uL (0.8-4.8) 09/25/23 21:50 [place] # (Auto) 0.8 10^3/uL (0.2-0.9) 09/25/23 21:50 Eos # (Auto) 0.1 10^3/uL (0.0-0.8) 09/25/23 21:50 Baso # (Auto) 0.0 10^3/uL (0.0-0.1) 09/25/23 21:50 Nucleated RBC % (auto) 0 % 09/25/23 21:50 Nucleated RBCs # 0.0 /100WBC 09/25/23 21:50 Sodium 139 mmol/L (136-145) 09/25/23 21:50 Potassium 3.9 mmol/L (3.5-5.1) 09/25/23 21:50 Chloride 105 mmol/L (98-107) 09/25/23 21:50 Carbon Dioxide 26 mmol/L (22-29) 09/25/23 21:50 Anion Gap 11.9 (5-19) 09/25/23 21:50 BUN 17 mg/dL (8-23) 09/25/23 21:50 Creatinine 1.0 mg/dL (0.7-1.2) 09/25/23 21:50 GFR Calculation Not Reportable 09/25/23 21:50 Glucose 100 mg/dL (65-115) 09/25/23 21:50 Calculated Osmolality 290 mOsm/kg (285-295) 09/25/23 21:50 Calcium 8.5 mg/dL (8.5-10.5) 09/25/23 21:50 Total Bilirubin 0.4 mg/dL (0.15-1.2) 09/25/23 21:50 AST 11 U/L (0-40) 09/25/23 21:50 ALT < 5 U/L (0-41) 09/25/23 21:50 Alkaline Phosphatase 105 U/L (40-130) 09/25/23 21:50 Total Protein 5.9 g/dL (6.6-8.7) L 09/25/23 21:50 Albumin 3.6 g/dL (3.5-5.2) 09/25/23 21:50 Globulin 2.3 g/dL (1.3-4.6) 09/25/23 21:50 All radiology interpretation(s) finalized by discharge EKG Data EKG 1: I personally reviewed and interpreted this EKG as follows: EKG interpretation date: 09/25/23 EKG interpretation time: 21:43 Prior EKG tracings: not available for review Interpretation: EKG showed ventricular rate 68 beats minute, W[place] interval 178, QRS duration 129, QTc 444, sinus rhythm with occasional PVC, right bundle branch block Discharge Plan Discharge Patient Disposition: Home Clinical Impression: Syncope Qualifiers: Syncope type: unspecified Qualified Code(s): R55 - Syncope and collapse Fall Qualifiers: Encounter type: initial encounter Qualified Code(s): W19.XXXA - Unspecified fall, initial encounter Facial laceration Qualifiers: Encounter type: initial encounter Qualified Code(s): S01.81XA - Laceration without foreign body of other part of head, initial encounter Condition: Stable Prescriptions: No Action Stool Softener 50 mg capsule 50 - 100 mg PO DAILY PRN (Reason: Constipation) oxybutynin chloride 5 mg tablet 5 mg PO BID carboxymethylcellulose sodium 1 % drops, liquid gel 1 drp ophthalmic (eye) BID PRN (Reason: Dry Eye(S)) nitroglycerin 0.4 mg tablet, sublingual 0.4 mg sublingual Q5M PRN (Reason: chest pain) Qty: 25 3RF Rx Instructions: do not exceed 3 doses per episode ondansetron 4 mg tablet,disintegrating 4 mg PO Q8H PRN galantamine 4 mg tablet 4 mg PO BID Qty: 60 2RF Rx Instructions: administer with AM and PM meals watch for nausea carbidopa-levodopa 25-100 mg tablet See Rx Instructions .ROUTE .COMPLEX Qty: 360 3RF Dose Instruction: TAKE 1 TABLET BY MOUTH IN THE MORNING, 1 TABLET AT NOON, 1 IN THE AFTERNOON, AND 1 AT 4 PM Rx Instructions: TAKE 1 TABLET BY MOUTH IN THE MORNING, 1 TABLET AT NOON, 1 IN THE AFTERNOON, AND 1 AT 4 PM Celexa 40 mg tablet 20 mg PO BEDTIME Qty: 90 3RF Myrbetriq 25 mg tablet extended release 24 hr 25 mg PO DAILY Qty: 30 5RF cholecalciferol (vitamin D3) [Vitamin D3] 25 mcg (1,000 unit) Tablet 75 mcg PO QAM polyethylene glycol 3350 [Miralax] 17 gram powder in packet 17 g PO DAILY PRN (Reason: Constipation) Tylenol Extra Strength 500 mg tablet 1,000 mg PO BID PRN (Reason: Pain) isosorbide mononitrate 30 mg tablet extended release 24 hr 15 mg PO BEDTIME aspirin 81 mg Tablet,Delayed Release (Dr/Ec) 81 mg PO QAM Thc Gummies 0.5 tab PO DAILY miconazole nitrate 2 % Powder See Rx Instructions .ROUTE .COMPLEX Rx Instructions: apply topically three times a day as needed for fungal infection or to rectum Pepcid 20 mg Tablet 20 mg PO BID PRN (Reason: Heartburn) Lidocaine Viscous 2 % Solution See Rx Instructions .ROUTE .COMPLEX Rx Instructions: mix with water and use as directed as needed zinc oxide 40 % Ointment 1 applic TOPICAL DAILY pantoprazole 40 mg tablet,delayed release (DR/EC) 40 mg PO DAILY@12 Flomax 0.4 mg capsule 0.4 mg PO DAILY Qty: 20 0RF Discharge Orders: Discharge ED (Routine); Ordered 09/25/23 Ordered By: Shakeel Carmona Referrals: Minnie Coello MD [Primary Care Provider] - 7-10 days Patient Instructions: Facial Laceration (ED), Syncope in Older Adults (ED) Activity Restrictions/Additional Instructions: Keep the wound clean and dry and let the Steri-Strips fall off on her own in approximately 3 to 5 days. Please follow-up with your family practice physician within 7 to 10 days for further evaluation and treatment. Coding Level of Care Code ED [employer] for Krystyna Antony
[2023-09-25 21:57] LABS: Basophils % 0.5 %; Eosinophils # 0.1 10^3/uL (0.0-0.8); Eosinophils % 1.7 %; Hematocrit 35.9 % (37-53); Lymphocytes # 1.9 10^3/uL (0.8-4.8); Mean Corpuscular HGB Conc 32.9 g/dL (30-55); Mean Corpuscular Hemoglobin 32.2 pg (27-33); Mean Corpuscular Volume 97.8 fl (82-101); Mean Platelet Volume 10.2 fL (7.4-10.4); Monocytes # 0.8 10^3/uL (0.2-0.9); Monocytes % 10.1 %; Neutrophils # 5.23 10^3/uL (1.8-7.7); Neutrophils % 64.5 %; Nucleated Red Blood Cells % 0 %; Platelet Count 161 10^3/cmm (157-399); Red Blood Count 3.67 10^6/uL (3.85-5.65); Red Cell Distribution Width 12.9 % (12.1-15.1); White Blood Count 8.12 10^3/uL (3.29-11.43)
[2023-09-25 22:15] LABS: Alanine Aminotransferase < 5 U/L (0-41); Albumin Level 3.6 g/dL (3.5-5.2); Alkaline Phosphatase 105 U/L (40-130); Anion Gap 11.9 (5-19); Aspartate Amino Transferase 11 U/L (0-40); Blood Urea Nitrogen 17 mg/dL (8-23); Calcium 8.5 mg/dL (8.5-10.5); Carbon Dioxide 26 mmol/L (22-29); Chloride 105 mmol/L (98-107); Creatinine Clr Calc Pharmacy 58.1304; Globulin 2.3 g/dL (1.3-4.6); Glucose 100 mg/dL (65-115); Osmolality Calculated 290 mOsm/kg (285-295); Potassium 3.9 mmol/L (3.5-5.1); Sodium 139 mmol/L (136-145); Total Bilirubin 0.4 mg/dL (0.15-1.2); Total Protein 5.9 g/dL (6.6-8.7)
[2023-09-25 22:56] VITALS: BP 178/81; PULSE 70; RESP 18; O2SAT 93
== END 2023-09-25 23:03 | disposition home or self-care (01) ==
PROVIDERS: Emergency Provider Emergency Medicine; PCP Family Medicine
DX: S01.112A Laceration without foreign body of left eyelid and periocular area, initial encounter (principal); R55 Syncope and collapse; Z79.82 Long term (current) use of aspirin; I25.10 Atherosclerotic heart disease of native coronary artery without angina pectoris; G20.A1 Parkinson's disease without dyskinesia, without mention of fluctuations; F02.80 Dementia in other diseases classified elsewhere, unspecified severity, without behavioral disturbance, psychotic disturbance, mood disturbance, and anxiety; I25.2 Old myocardial infarction; Z85.46 Personal history of malignant neoplasm of prostate; Z92.3 Personal history of irradiation; W18.39XA Other fall on same level, initial encounter
CPT/HCPCS: 70450; 80053; 85025; 93005; 99285

== ENCOUNTER → 2023-10-10 11:25 | Outpatient (BNVA) | payer OTHER, SELFPAY | PROVIDERS: PCP Family Medicine; Visit Provider Specialist | DX: G31.83 Neurocognitive disorder with Lewy bodies (principal); F02.80 Dementia in other diseases classified elsewhere, unspecified severity, without behavioral disturbance, psychotic disturbance, mood disturbance, and anxiety; G90.3 Multi-system degeneration of the autonomic nervous system; R48.2 Apraxia | CPT/HCPCS: 99215 ==

== ENCOUNTER 2023-10-22 15:55 | Outpatient (CLI) | payer OTHER, SELFPAY ==
[2023-10-22 16:04] LABS: Add Urine Microscopic? NO; Charge for UA Resulting for Rev
[2023-10-22 16:14] LABS: Bilirubin Urine Neg (Negative); Blood Urine Neg (Negative); Glucose Urine UA Norm (Normal); Ketones Urine 1+ (Negative); Leukocyte Esterase Urine Negative (Negative); Nitrate Urine Negative (Negative); Protein Urine Neg (Negative); Urine Appearance Clear (CLEAR); Urine Color Dark Yellow (Yellow); Urobilinogen Urine 1 mg/dL (Negative); pH Urine 5 (5-7)
== END 2023-10-22 15:56 | disposition home or self-care (01) ==
PROVIDERS: PCP Family Medicine; Visit Provider Family Medicine
DX: Z01.89 Encounter for other specified special examinations (principal)
CPT/HCPCS: 81003; 87086

== ENCOUNTER 2023-12-15 22:44 | Outpatient (CLI) | payer OTHER, MEDICARE, SELFPAY ==
[2023-12-15 22:56] LABS: Charge for UA Resulting for Rev
[2023-12-15 23:09] LABS: Bilirubin Urine 1+ (Negative); Blood Urine Neg (Negative); Glucose Urine UA Norm (Normal); Ketones Urine 1+ (Negative); Leukocyte Esterase Urine Negative (Negative); Nitrate Urine Negative (Negative); Protein Urine Neg (Negative); Urine Appearance Clear (CLEAR); Urine Color Yellow (Yellow); pH Urine 5 (5-7)
[2023-12-15 23:10] LABS: Add Urine Microscopic? NO; Urobilinogen Urine 1 mg/dL (Negative)
== END 2023-12-15 22:45 | disposition home or self-care (01) ==
PROVIDERS: PCP Family Medicine; Visit Provider Family Medicine
DX: Z01.89 Encounter for other specified special examinations (principal)
CPT/HCPCS: 81003; 87077; 87086; 87186

== ENCOUNTER → 2024-01-11 11:55 | Outpatient (BNVA) | payer OTHER, MEDICARE, SELFPAY | PROVIDERS: PCP Family Medicine; Visit Provider Specialist | DX: G20.B2 Parkinson's disease with dyskinesia, with fluctuations (principal); G31.83 Neurocognitive disorder with Lewy bodies; F02.C3 Dementia in other diseases classified elsewhere, severe, with mood disturbance | CPT/HCPCS: 99215 ==

== ENCOUNTER 2024-01-19 21:39 | Emergency (ER) | payer OTHER, SELFPAY ==
[2024-01-19 21:44] VITALS: BP 158/69; PULSE 82; RESP 18; TEMP 37; O2SAT 98
--- NOTE | 2024-01-19 22:09 | XRR_ITS ---
PROCEDURE INFORMATION: Exam: XR Left Shoulder Exam date and time: 01/19/2024 11:19 PM Age: 83 years old Clinical indication: Injury or trauma; Fall; Blunt trauma (contusions or hematomas); Shoulder; Left TECHNIQUE: Imaging protocol: Radiologic exam of the left shoulder. Views: 2 or more views. COMPARISON: CR XR chest 1V portable [id number] 09/08/2023 9:12 PM FINDINGS: Bones/joints: Diffuse osteopenia. No acute fracture or dislocation. No AC joint widening or offset. [id number] glenohumeral and AC arthrosis Soft tissues: Normal. XR/XR shoulder LT min 2V* [id number] IMPRESSION: No acute fracture or dislocation
--- NOTE | 2024-01-19 22:55 | W.ED.EXTPRO ---
Documented by User: [email or web address] Gatica 01/20/24 00:35 HPI - Extremity Problem General: Chief complaint: Extremity Injury, Upper Stated complaint: fall, left shoulder pain Time Seen by Provider: 01/19/24 22:38 Source: family Mode of arrival: ambulatory Limitations: no limitations History of Present Illness: Patient is an 83-year-old male with history of Lewy body dementia and Parkinson's who presents to the emergency department due to fall and associated left shoulder pain onset today. Patient is in assisted living and is brought in by family, who states that the patient fell approximately 2-3 feet off of his bed directly onto his left shoulder. He has no prior surgical history with the shoulder or any reportable injuries. No recent medication changes or symptoms reported prior to the fall, as patient verbalizes that he had a mechanical fall. Family states that the patient has dealt with multiple urinary tract infections recently, and she would like a urinalysis to evaluate for one today as he has been exhibiting increased altered mental status from baseline. Otherwise, family denies any deformities, bruising, erythema, swelling, or any other concerning symptoms associated with the fall. MD Complaint: joint pain (Left shoulder) Pain Consistency: constant Location: left Severity scale (1-10): 4 Radiation: none Relieving factors: nothing Exacerbating factors: range of motion Review of Systems General: Reports: ROS unobtainable due to mental status (Lewy body dementia) [facility] ED PFSH: Medical History Sleep apnea Chronic constipation Dementia CAD (coronary artery disease) Hypertensive emergency Non-ST elevation SD (NSTEMI) 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 Tamia Foley. Bilateral L3-L4 hemilaminotomy/foraminotomy, with limited discectomy. Bilateral L2-L3 laminotomy/foraminotomy. S/P tonsillectomy and adenoidectomy S/P cataract extraction BILATERAL S/P cholecystectomy S/P shoulder surgery H/O elbow surgery Family History Grandmother CAD (coronary artery disease) Cancer Myocardial infarct Family/Other Hypertension Mother , at age 95 No problems noted. Father , at age 39 Blood clot associated with vein wall inflammation Social History Smoking and tobacco/nicotine status: never used tobacco/nicotine Alcohol intake: never Substance/Drug Use: never Household members: family and children Marital status: / Current occupational status: retired Physical Exam Const: COMMON NORMALS: no acute distress, no limitations, healthy appearing and alert GENERAL APPEARANCE: cooperative, comfortable and well developed ORIENTATION/CONSCIOUSNESS: Yes awake and Yes oriented to person OTHER: Resting tremor HENMT: COMMON NORMALS: normocephalic, atraumatic and hearing grossly normal bilaterally HEAD & SCALP: normocephalic and atraumatic Eye: COMMON NORMALS: Equal, round and reactive pupils present, EOMs intact bilaterally and conjunctivae normal CONJUNCTIVA: Yes conjunctivae normal PUPIL: Yes Equal, round and reactive pupils present Neck/C-Spine: COMMON NORMALS: full ROM, supple and no JVD OTHER: No cervical spine tenderness or paracervical muscular tenderness. Resp: COMMON NORMALS: normal respiratory effort, No retractions and No use of accessory muscles Cardio: COMMON NORMALS: no JVD, regular rate, regular rhythm, No clicks present (Cardio), No murmurs present (Cardio) and No rub (Cardio) RATE: regular rate RHYTHM: regular rhythm Extremity: COMMON NORMALS: normal to inspection, full ROM and capillary refill normal OTHER: Mild tenderness to palpation about the anterior left shoulder joint. No signs of deformity, edema, or bruising. Patient has minimal reproducible tenderness with range of motion. He exhibits good strength bilaterally and has no distal neurovascular deficit. Equal electrical and electronic assembler strength bilaterally. Good sensations bilaterally. No subacromial or clavicular tenderness. No scapular spine tenderness. Neuro: COMMON NORMALS: moves all extremities, no focal motor deficits and no sensory deficits noted SENSORIUM/ORIENTATION: Yes alert and Yes oriented to person Psych: COMMON NORMALS: cooperative and speech normal SPEECH: Yes normal speech Skin: COMMON NORMALS: no rashes or lesions noted GENERAL SKIN EXAM: no rashes or lesions noted Course Vital Signs: Vital signs: Vital Signs Temperature 98.6 F 01/20/24 00:30 Pulse Rate 82 01/20/24 00:30 Respiratory Rate 18 01/20/24 00:30 Blood Pressure 158/69 01/20/24 00:30 Pulse Oximetry 98 01/20/24 00:30 Oxygen Delivery Me thod Room Air 01/19/24 21:44 MDM - Extremity (Nontraumatic) Medical Decision Making This patient was seen and evaluated in the emergency department today due to a fall onto left shoulder suffered at assisted living facility. Patient brought in by daughter who states that the patient has been complaining of pain to the left shoulder. Vitals on arrival were normal. Examination revealed an altered patient, reportedly baseline due to his Lewy body dementia. He exhibited resting tremor, but displayed no abnormalities on examination of the left upper extremity. Distal neurovascular exam was intact and he had normal range of motion. X-ray of the left shoulder failed to demonstrate any signs of acute fracture, dislocation, or other deformities. I believe that the patient's pain is due to a left shoulder contusion suffered from the fall. I discussed with the patient's daughter plan to discharge home and for him to take Tylenol and ibuprofen, as well as to ice for added relief. If his symptoms do not improve in the next week, he will return for further evaluation. Reasons to return were also discussed. Patient daughter agrees with this plan. Patient will be discharged home. Lab Data Radiology Impressions Shoulder X-Ray 01/19/24 22:09 IMPRESSION: No acute fracture or dislocation All radiology interpretation(s) finalized by discharge Discharge Plan Discharge Patient Disposition: Home Clinical Impression: Contusion of left shoulder Qualifiers: Encounter type: initial encounter Qualified Code(s): S40.012A - Contusion of left shoulder, initial encounter Condition: Stable Prescriptions: No Action Stool Softener 50 mg capsule 50 - 100 mg PO DAILY PRN (Reason: Constipation) oxybutynin chloride 5 mg tablet 5 mg PO BID carboxymethylcellulose sodium 1 % drops, liquid gel 1 drp ophthalmic (eye) BID PRN (Reason: Dry Eye(S)) nitroglycerin 0.4 mg tablet, sublingual 0.4 mg sublingual Q5M PRN (Reason: chest pain) Qty: 25 3RF Rx Instructions: do not exceed 3 doses per episode ondansetron 4 mg tablet,disintegrating 4 mg PO Q8H PRN Celexa 40 mg tablet 20 mg PO BEDTIME Qty: 90 3RF trazodone 50 mg tablet 50 mg PO DAILY Qty: 90 3RF midodrine 5 mg tablet 5 mg PO TID Qty: 90 4RF Rx Instructions: do not give last dose of day after 6PM or within 4 hrs of bedtime Myrbetriq 25 mg tablet extended release 24 hr 25 mg PO DAILY Qty: 30 5RF carbidopa-levodopa 25-100 mg tablet See Rx Instructions .ROUTE .COMPLEX Qty: 360 3RF Dose Instruction: TAKE 1 TABLET BY MOUTH IN THE MORNING, 1 TABLET AT NOON, 1 IN THE AFTERNOON, AND 1 AT 4 PM Rx Instructions: TAKE 1 TABLET BY MOUTH IN THE MORNING, 1 TABLET AT NOON, 1 IN THE AFTERNOON, AND 1 AT 4 PM cholecalciferol (vitamin D3) [Vitamin D3] 25 mcg (1,000 unit) Tablet 75 mcg PO QAM polyethylene glycol 3350 [Miralax] 17 gram powder in packet 17 g PO DAILY PRN (Reason: Constipation) Tylenol Extra Strength 500 mg tablet 1,000 mg PO BID PRN (Reason: Pain) isosorbide mononitrate 30 mg tablet extended release 24 hr 15 mg PO BEDTIME aspirin 81 mg Tablet,Delayed Release (Dr/Ec) 81 mg PO QAM Thc Gummies 0.5 tab PO DAILY miconazole nitrate 2 % Powder See Rx Instructions .ROUTE .COMPLEX Rx Instructions: apply topically three times a day as needed for fungal infection or to rectum Pepcid 20 mg Tablet 20 mg PO BID PRN (Reason: Heartburn) Lidocaine Viscous 2 % Solution See Rx Instructions .ROUTE .COMPLEX Rx Instructions: mix with water and use as directed as needed zinc oxide 40 % Ointment 1 applic TOPICAL DAILY pantoprazole 40 mg tablet,delayed release (DR/EC) 40 mg PO DAILY@12 Flomax 0.4 mg capsule 0.4 mg PO DAILY Qty: 20 0RF Discharge Orders: Discharge ED (Routine); Ordered 01/20/24 Ordered By: Sampson Allison Referrals: Minnie Coello MD [Primary Care Provider] - Discharge Diet: Usual diet Discharge Activity: Increase activity as tolerated Patient Instructions: Shoulder Pain (ED) Activity Restrictions/Additional Instructions: Tylenol and ibuprofen as needed. Ice for added relief. Gentle range of motion exercises as tolerated. Follow-up with your primary care provider. Return with any new or worsening symptoms. 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 [employer] Documented by User: Bright Aden DO 01/20/24 06:17 HPI - Extremity Problem General: Chief complaint: Extremity Injury, Upper Stated complaint: fall, left shoulder pain Time Seen by Provider: 01/19/24 22:38 [facility] ED PFSH: Medical History Sleep apnea Chronic constipation Dementia CAD (coronary artery disease) Hypertensive emergency Non-ST elevation SD (NSTEMI) 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 Tamia Foley. Bilateral L3-L4 hemilaminotomy/foraminotomy, with limited discectomy. Bilateral L2-L3 laminotomy/foraminotomy. S/P tonsillectomy and adenoidectomy S/P cataract extraction BILATERAL S/P cholecystectomy S/P shoulder surgery H/O elbow surgery Family History Grandmother CAD (coronary artery disease) Cancer Myocardial infarct Family/Other Hypertension Mother , at age 95 No problems noted. Father , at age 39 Blood clot associated with vein wall inflammation Social History Smoking and tobacco/nicotine status: never used tobacco/nicotine Alcohol intake: never Substance/Drug Use: never Household members: family and children Marital status: / Current occupational status: retired Course Vital Signs: Vital signs: Vital Signs Temperature 98.6 F 01/20/24 00:30 Pulse Rate 82 01/20/24 00:30 Respiratory Rate 18 01/20/24 00:30 Blood Pressure 158/69 01/20/24 00:30 Pulse Oximetry 98 01/20/24 00:30 Oxygen Delivery Me thod Room Air 01/19/24 21:44 MDM - Extremity (Nontraumatic) Medical Decision Making This patient was seen and evaluated in the emergency department today due to a fall onto left shoulder suffered at assisted living facility. Patient brought in by daughter who states that the patient has been complaining of pain to the left shoulder. Vitals on arrival were normal. Examination revealed an altered patient, reportedly baseline due to his Lewy body dementia. He exhibited resting tremor, but displayed no abnormalities on examination of the left upper extremity. Distal neurovascular exam was intact and he had normal range of motion. X-ray of the left shoulder failed to demonstrate any signs of acute fracture, dislocation, or other deformities. I believe that the patient's pain is due to a left shoulder contusion suffered from the fall. I discussed with the patient's daughter plan to discharge home and for him to take Tylenol and ibuprofen, as well as to ice for added relief. If his symptoms do not improve in the next week, he will return for further evaluation. Reasons to return were also discussed. Patient daughter agrees with this plan. Patient will be discharged home. Chart reviewed and patient discussed with midlevel. Agree with assessment and plan. Lab Data Radiology Impressions Shoulder X-Ray 01/19/24 22:09 IMPRESSION: No acute fracture or dislocation Discharge Plan Discharge Patient Disposition: Home Clinical Impression: Contusion of left shoulder Qualifiers: Encounter type: initial encounter Qualified Code(s): S40.012A - Contusion of left shoulder, initial encounter Condition: Stable Prescriptions: No Action Stool Softener 50 mg capsule 50 - 100 mg PO DAILY PRN (Reason: Constipation) oxybutynin chloride 5 mg tablet 5 mg PO BID carboxymethylcellulose sodium 1 % drops, liquid gel 1 drp ophthalmic (eye) BID PRN (Reason: Dry Eye(S)) nitroglycerin 0.4 mg tablet, sublingual 0.4 mg sublingual Q5M PRN (Reason: chest pain) Qty: 25 3RF Rx Instructions: do not exceed 3 doses per episode ondansetron 4 mg tablet,disintegrating 4 mg PO Q8H PRN Celexa 40 mg tablet 20 mg PO BEDTIME Qty: 90 3RF trazodone 50 mg tablet 50 mg PO DAILY Qty: 90 3RF midodrine 5 mg tablet 5 mg PO TID Qty: 90 4RF Rx Instructions: do not give last dose of day after 6PM or within 4 hrs of bedtime Myrbetriq 25 mg tablet extended release 24 hr 25 mg PO DAILY Qty: 30 5RF carbidopa-levodopa 25-100 mg tablet See Rx Instructions .ROUTE .COMPLEX Qty: 360 3RF Dose Instruction: TAKE 1 TABLET BY MOUTH IN THE MORNING, 1 TABLET AT NOON, 1 IN THE AFTERNOON, AND 1 AT 4 PM Rx Instructions: TAKE 1 TABLET BY MOUTH IN THE MORNING, 1 TABLET AT NOON, 1 IN THE AFTERNOON, AND 1 AT 4 PM cholecalciferol (vitamin D3) [Vitamin D3] 25 mcg (1,000 unit) Tablet 75 mcg PO QAM polyethylene glycol 3350 [Miralax] 17 gram powder in packet 17 g PO DAILY PRN (Reason: Constipation) Tylenol Extra Strength 500 mg tablet 1,000 mg PO BID PRN (Reason: Pain) isosorbide mononitrate 30 mg tablet extended release 24 hr 15 mg PO BEDTIME aspirin 81 mg Tablet,Delayed Release (Dr/Ec) 81 mg PO QAM Thc Gummies 0.5 tab PO DAILY miconazole nitrate 2 % Powder See Rx Instructions .ROUTE .COMPLEX Rx Instructions: apply topically three times a day as needed for fungal infection or to rectum Pepcid 20 mg Tablet 20 mg PO BID PRN (Reason: Heartburn) Lidocaine Viscous 2 % Solution See Rx Instructions .ROUTE .COMPLEX Rx Instructions: mix with water and use as directed as needed zinc oxide 40 % Ointment 1 applic TOPICAL DAILY pantoprazole 40 mg tablet,delayed release (DR/EC) 40 mg PO DAILY@12 Flomax 0.4 mg capsule 0.4 mg PO DAILY Qty: 20 0RF Discharge Orders: Discharge ED (Routine); Ordered 01/20/24 Ordered By: Sampson Allison Referrals: Minnie Coello MD [Primary Care Provider] - Discharge Diet: Usual diet Discharge Activity: Increase activity as tolerated Patient Instructions: Shoulder Pain (ED) Activity Restrictions/Additional Instructions: Tylenol and ibuprofen as needed. Ice for added relief. Gentle range of motion exercises as tolerated. Follow-up with your primary care provider. Return with any new or worsening symptoms. 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 Krystyna Antony
[2024-01-20 00:30] VITALS: BP 158/69; PULSE 82; RESP 18; TEMP 37; O2SAT 98
== END 2024-01-20 00:31 | disposition home or self-care (01) ==
PROVIDERS: Emergency Provider Physician Assistant; PCP Family Medicine
DX: S40.012A Contusion of left shoulder, initial encounter (principal); Z79.82 Long term (current) use of aspirin; I25.10 Atherosclerotic heart disease of native coronary artery without angina pectoris; I25.2 Old myocardial infarction; G20.A1 Parkinson's disease without dyskinesia, without mention of fluctuations; F03.90 Unspecified dementia, unspecified severity, without behavioral disturbance, psychotic disturbance, mood disturbance, and anxiety; Z85.46 Personal history of malignant neoplasm of prostate; Z92.3 Personal history of irradiation
CPT/HCPCS: 73030; 99283

== ENCOUNTER → 2024-02-15 15:07 | Outpatient (BNVA) | payer OTHER, SELFPAY | PROVIDERS: PCP Family Medicine; Visit Provider Specialist | DX: G31.83 Neurocognitive disorder with Lewy bodies (principal); F02.C3 Dementia in other diseases classified elsewhere, severe, with mood disturbance | CPT/HCPCS: 99215 ==

== ENCOUNTER → 2024-02-20 10:57 | Outpatient (BNVA) | payer OTHER, SELFPAY | PROVIDERS: PCP Family Medicine; Visit Provider Internal Medicine Cardiovascular Disease | DX: I25.10 Atherosclerotic heart disease of native coronary artery without angina pectoris (principal); I95.1 Orthostatic hypotension; I10 Essential (primary) hypertension; I44.1 Atrioventricular block, second degree | CPT/HCPCS: 99214 ==

== ENCOUNTER 2024-03-02 16:47 | Emergency (ER) | payer OTHER, SELFPAY ==
[2024-03-02 16:51] VITALS: BP 200/97; PULSE 71; RESP 19; TEMP 36.9; O2SAT 96
--- NOTE | 2024-03-02 16:55 | ECG_ITS ---
[facility] Test Date: 2024-03-02 Pat Name: Renny Matos Department: Room: Gender: Male [employer]: : 1940 Requested By: Bright Mcclelland Order Number: [id number] Edna MD: Maikel Osei M.D. Measurements Intervals [place] Rate: 70 P: 48 PA: 166 QRS: -28 QRSD: 133 T: 1 QT: 428 QTc: 462 Interpretive Statements SINUS RHYTHM INTRAVENTRICULAR CONDUCTION DELAY [130+ ms QRS DURATION] VOLTAGE CRITERIA FOR LVH [MEETS CRITERIA IN ONE OF: R(aVL), S(V1), R(V5), R(V5/V6)+S(V1)] POSSIBLE SEPTAL MYOCARDIAL INFARCTION , PROBABLY OLD [30 ms Q WAVE IN V1/V2] PROBABLE LATERAL MYOCARDIAL INFARCTION , OF INDETERMINATE AGE [35 ms Q WAVE IN I/aVL/V5/V6] Compared to ECG 09/25/2023 21:43:32 Intraventricular conduction delay now present Left ventricular hypertrophy now present Ventricular premature complex(es) no longer present Right bundle-branch block no longer present Electronically Signed On 03-02-2024 23:13:30 CDT by Maikel Osei M.D. [id number] f
[2024-03-02 17:12] VITALS: BP 201/74; PULSE 67; RESP 18; O2SAT 97
--- NOTE | 2024-03-02 17:18 | XRR_ITS ---
PROCEDURE INFORMATION: Exam: XR Chest Exam date and time: 03/02/2024 6:25 PM Age: 84 years old Clinical indication: Cough and dyspnea; Prior surgery; Surgery date: 6+ months; Surgery type: Coronary stent. Gb; Patient HX: Cough with dyspnea; Additional info: Dyspnea/cough TECHNIQUE: Imaging protocol: Radiologic exam of the chest. Views: 1 view. COMPARISON: CR XR chest 1V portable [id number] 09/08/2023 9:12 PM FINDINGS: Lungs: Unremarkable. No consolidation. Pleural spaces: Unremarkable. No pleural effusion. No pneumothorax. Heart/Mediastinum: Unremarkable. No cardiomegaly. Bones/joints: Unremarkable. XR/XR chest 1V portable [id number] IMPRESSION: No acute findings.
--- NOTE | 2024-03-02 17:19 | CTR_ITS ---
PROCEDURE INFORMATION: Exam: CT Head Without Contrast Exam date and time: 03/02/2024 5:44 PM Age: 84 years old Clinical indication: Altered mental status/memory loss; Patient HX: Per pts daughter he has dementia but msc varies from his norm ; Additional info: AMS TECHNIQUE: Imaging protocol: Computed tomography of the head without contrast. Radiation optimization: All CT scans at this facility use at least one of these dose optimization techniques: automated exposure control; mA and/or kV adjustment per patient size (includes targeted exams where dose is matched to clinical indication); or iterative reconstruction. COMPARISON: CT head wo con* [id number] 09/25/2023 10:54 PM RADIATION DOSE METRICS: Total DLP (mGy-cm): 766.11 FINDINGS: Brain: No hemorrhage. No edema. Advanced diffuse cerebral atrophy and moderate sequela of chronic small vessel ischemic disease. No mass effect. Cerebral ventricles: No ventriculomegaly. Paranasal sinuses: Visualized sinuses are unremarkable. No fluid levels. Mastoid air cells: Visualized mastoid air cells are well aerated. Bones/joints: Unremarkable. No acute fracture. Soft tissues: Unremarkable. CT/CT head wo con* [id number] IMPRESSION: No acute intracranial abnormality.
[2024-03-02 17:35] LABS: Basophils % 0.6 %; Eosinophils # 0.1 10^3/uL (0.0-0.8); Eosinophils % 1.7 %; Hematocrit 40.6 % (37-53); Lymphocytes # 1.4 10^3/uL (0.8-4.8); Lymphocytes % 19.7 %; Mean Corpuscular Hemoglobin 32.4 pg (27-33); Mean Corpuscular Volume 98.1 fl (82-101); Mean Platelet Volume 10.5 fL (7.4-10.4); Monocytes # 0.7 10^3/uL (0.2-0.9); Monocytes % 9.7 %; Nucleated Red Blood Cells % 0 %; Platelet Count 174 10^3/cmm (157-399); Red Blood Count 4.14 10^6/uL (3.85-5.65); Red Cell Distribution Width 12.7 % (12.1-15.1)
--- NOTE | 2024-03-02 17:51 | W.ED.AMS ---
Documented by User: Bright Aden DO 03/03/24 05:58 HPI - Altered Mental Status General: Chief Complaint: Altered Mental Status Stated Complaint: ams Time Seen by Provider: 03/02/24 17:18 Source: patient and family Mode of arrival: EMS History of Present Illness: 84-year-old male with a known history of Parkinson's presents emergency room with increased confusion and mild behavioral disturbance. He recently had his Sinemet increased to 2 tablets in the morning and 1 3 other times throughout the day. This morning when his caregiver woke him up he reacted inappropriately which is very unusual for him. He has not had any fever sweats or chills no chest pain he is awake and alert and essentially at his baseline now family is concerned it may be a reaction to the medication change or a possible infection. He has had altered behavior issues with bladder infections in the past. No cough or shortness of breath. complaint: altered mental status Onset (ago): hour(s) Timing confirmed by: family member Severity: mild Associated symptoms: Deny auditory hallucinations, visual hallucinations, delusions, depression, homicidal ideation, racing thoughts or suicidal ideation Review of Systems Const: Denies: fever(s) or chills Card: Denies: chest pain Resp: Denies: dyspnea GI: Denies: abdominal pain : Denies: dysuria, urinary frequency or urinary urgency Musc: Denies: neck pain or back pain Skin/Breast: Denies: rash Psych: Denies: depression, visual hallucinations, auditory hallucinations, suicidal ideation or homicidal ideation [facility] ED PFSH: Medical History Sleep apnea Chronic constipation Dementia CAD (coronary artery disease) Hypertensive emergency Non-ST elevation AR (NSTEMI) 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 Tamia Foley. Bilateral L3-L4 hemilaminotomy/foraminotomy, with limited discectomy. Bilateral L2-L3 laminotomy/foraminotomy. S/P tonsillectomy and adenoidectomy S/P cataract extraction BILATERAL S/P cholecystectomy S/P shoulder surgery H/O elbow surgery Family History Grandmother CAD (coronary artery disease) Cancer Myocardial infarct Family/Other Hypertension Mother , at age 95 No problems noted. Father , at age 39 Blood clot associated with vein wall inflammation Social History Smoking and tobacco/nicotine status: never used tobacco/nicotine Alcohol intake: never Substance/Drug Use: never Household members: family and children Marital status: / Current occupational status: retired Physical Exam Const: COMMON NORMALS: no acute distress GENERAL APPEARANCE: cooperative and comfortable ORIENTATION/CONSCIOUSNESS: Yes awake HENMT: COMMON NORMALS: normocephalic, atraumatic and hearing grossly normal bilaterally HEAD & SCALP: normocephalic and atraumatic Resp: COMMON NORMALS: normal respiratory effort, No retractions, No use of accessory muscles and clear to auscultation bilaterally AUSCULTATION: clear to auscultation bilaterally Cardio: COMMON NORMALS: regular rate, regular rhythm and No murmurs present (Cardio) RATE: regular rate RHYTHM: regular rhythm GI: COMMON NORMALS: Soft to palpation and No hepatosplenomegaly present AUSCULTATION: Yes normoactive bowel sounds PALPATION: Yes Soft to palpation, No Tenderness to palpation present (GI), No Guarding due to palpation present (GI) and Yes No hepatosplenomegaly present Extremity: COMMON NORMALS: normal to inspection, capillary refill normal, no clubbing, cyanosis or edema, no calf tenderness and no pedal edema Psych: THOUGHT CONTENT: No delusions Skin: COMMON NORMALS: no rashes or lesions noted GENERAL SKIN EXAM: no rashes or lesions noted Course Vital Signs: Vital signs: Vital Signs Temperature 98.5 F 03/02/24 16:51 Pulse Rate 70 03/02/24 20:39 Respiratory Rate 18 03/02/24 20:39 Blood Pressure 143/70 03/02/24 20:39 Pulse Oximetry 92 03/02/24 20:39 Oxygen Delivery Me thod Room Air 03/02/24 18:26 MDM - Altered Mental Status Medical Decision Making Care signed out to Dr. Carmona at change of shift. See final notes for diagnosis and disposition. Chart was reviewed, lab work was noted, physical exam was performed. Long discussion with the daughter about patient's new dosing regimen of medicine. We will go back to the old dosing of 4 times a day of the levodopa instead of the double dose in the morning. She will [facility]. Lab Data 03/02/24 17:30 03/02/24 17:30 Radiology Impressions Chest X-Ray 03/02/24 17:18 IMPRESSION: No acute findings. Head CT 03/02/24 17:19 IMPRESSION: No acute intracranial abnormality. Laboratory Results WBC 7.20 10^3/uL (3.29-11.43) 03/02/24 17:30 RBC 4.14 10^6/uL (3.85-5.65) 03/02/24 17:30 Hgb 13.40 g/dL (11.27-16.99) 03/02/24 17:30 Hct 40.6 % (37-53) 03/02/24 17:30 MCV 98.1 fl (82-101) 03/02/24 17:30 MCH 32.4 pg (27-33) 03/02/24 17:30 MCHC 33.0 g/dL (30-55) 03/02/24 17:30 RDW 12.7 % (12.1-15.1) 03/02/24 17:30 Plt Count 174 10^3/cmm (157-399) 03/02/24 17:30 MPV 10.5 fL (7.4-10.4) H 03/02/24 17:30 Neut % (Auto) 68.0 % 03/02/24 17:30 Lymph % (Auto) 19.7 % 03/02/24 17:30 [place] % (Auto) 9.7 % 03/02/24 17:30 Eos % (Auto) 1.7 % 03/02/24 17:30 Baso % (Auto) 0.6 % 03/02/24 17:30 Neut # (Auto) 4.90 10^3/uL (1.8-7.7) 03/02/24 17:30 Lymph # (Auto) 1.4 10^3/uL (0.8-4.8) 03/02/24 17:30 [place] # (Auto) 0.7 10^3/uL (0.2-0.9) 03/02/24 17:30 Eos # (Auto) 0.1 10^3/uL (0.0-0.8) 03/02/24 17:30 Baso # (Auto) 0.0 10^3/uL (0.0-0.1) 03/02/24 17:30 Nucleated RBC % (auto) 0 % 03/02/24 17:30 Nucleated RBCs # 0.0 /100WBC 03/02/24 17:30 Sodium 139 mmol/L (136-145) 03/02/24 17:30 Potassium 4.4 mmol/L (3.5-5.1) 03/02/24 17:30 Chloride 105 mmol/L (98-107) 03/02/24 17:30 Carbon Dioxide 25 mmol/L (22-29) 03/02/24 17:30 Anion Gap 13.4 (5-19) 03/02/24 17:30 BUN 15 mg/dL (8-23) 03/02/24 17:30 Creatinine 0.9 mg/dL (0.7-1.2) 03/02/24 17:30 GFR Calculation Not Reportable 03/02/24 17:30 Glucose 94 mg/dL (65-115) 03/02/24 17:30 Calculated Osmolality 289 mOsm/kg (285-295) 03/02/24 17:30 Lactic Acid 1.1 mmol/L (0.5-2.2) 03/02/24 17:30 Calcium 9.0 mg/dL (8.5-10.5) 03/02/24 17:30 Total Bilirubin 0.4 mg/dL (0.15-1.2) 03/02/24 17:30 AST 14 U/L (0-40) 03/02/24 17:30 ALT 6 U/L (0-41) 03/02/24 17:30 Alkaline Phosphatase 121 U/L (40-130) 03/02/24 17:30 Troponin T Baseline 16 ng/L (0-15) H 03/02/24 17:30 Troponin T 120 Minute 14.58 ng/L (0-15) 03/02/24 19:44 Delta Troponin T -1.42 ABS# (0-10) L 03/02/24 19:44 Total Protein 6.6 g/dL (6.6-8.7) 03/02/24 17:30 Albumin 3.9 g/dL (3.5-5.2) 03/02/24 17:30 Globulin 2.7 g/dL (1.3-4.6) 03/02/24 17:30 Urine Color Yellow (Yellow) 03/02/24 19:03 Urine Appearance Clear (CLEAR) 03/02/24 19:03 Urine pH 6 (5-7) 03/02/24 19:03 Ur Specific [place] 1.020 (1.005-1.030) 03/02/24 19:03 Urine Protein Neg (Negative) 03/02/24 19:03 Urine Glucose (UA) Norm (Normal) 03/02/24 19:03 Urine Ketones Negative (Negative) 03/02/24 19:03 Urine Blood Neg (Negative) 03/02/24 19:03 Urine Nitrate Negative (Negative) 03/02/24 19:03 Urine Bilirubin Neg (Negative) 03/02/24 19:03 Urine Urobilinogen Neg mg/dL (Negative) 03/02/24 19:03 Ur Leukocyte Esterase Negative (Negative) 03/02/24 19:03 Discharge Plan Discharge Patient Disposition: Home Clinical Impression: Altered mental status Qualifiers: Altered mental status type: transient alteration of awareness Qualified Code(s): R40.4 - Transient alteration of awareness Condition: Stable Prescriptions: No Action Stool Softener 50 mg capsule 50 - 100 mg PO DAILY PRN (Reason: Constipation) oxybutynin chloride 5 mg tablet 5 mg PO BID carboxymethylcellulose sodium 1 % drops, liquid gel 1 drp ophthalmic (eye) BID PRN (Reason: Dry Eye(S)) nitroglycerin 0.4 mg tablet, sublingual 0.4 mg sublingual Q5M PRN (Reason: chest pain) Qty: 25 3RF Rx Instructions: do not exceed 3 doses per episode ondansetron 4 mg tablet,disintegrating 4 mg PO Q8H PRN Celexa 40 mg tablet 20 mg PO BEDTIME Qty: 90 3RF trazodone 50 mg tablet 50 mg PO DAILY Qty: 90 3RF midodrine 5 mg tablet 5 mg PO TID Qty: 90 4RF Rx Instructions: do not give last dose of day after 6PM or within 4 hrs of bedtime Myrbetriq 25 mg tablet extended release 24 hr 25 mg PO DAILY Qty: 30 5RF carbidopa-levodopa 25-100 mg tablet See Rx Instructions .ROUTE .COMPLEX Qty: 360 3RF Dose Instruction: TAKE 1 TABLET BY MOUTH IN THE MORNING, 1 TABLET AT NOON, 1 IN THE AFTERNOON, AND 1 AT 4 PM Rx Instructions: TAKE 1 TABLET BY MOUTH IN THE MORNING, 1 TABLET AT NOON, 1 IN THE AFTERNOON, AND 1 AT 4 PM cholecalciferol (vitamin D3) [Vitamin D3] 25 mcg (1,000 unit) Tablet 75 mcg PO QAM polyethylene glycol 3350 [Miralax] 17 gram powder in packet 17 g PO DAILY PRN (Reason: Constipation) Tylenol Extra Strength 500 mg tablet 1,000 mg PO BID PRN (Reason: Pain) isosorbide mononitrate 30 mg tablet extended release 24 hr 15 mg PO BEDTIME aspirin 81 mg Tablet,Delayed Release (Dr/Ec) 81 mg PO QAM Thc Gummies 0.5 tab PO DAILY miconazole nitrate 2 % Powder See Rx Instructions .ROUTE .COMPLEX Rx Instructions: apply topically three times a day as needed for fungal infection or to rectum Pepcid 20 mg Tablet 20 mg PO BID PRN (Reason: Heartburn) Lidocaine Viscous 2 % Solution See Rx Instructions .ROUTE .COMPLEX Rx Instructions: mix with water and use as directed as needed zinc oxide 40 % Ointment 1 applic TOPICAL DAILY pantoprazole 40 mg tablet,delayed release (DR/EC) 40 mg PO DAILY@12 Flomax 0.4 mg capsule 0.4 mg PO DAILY Qty: 20 0RF Discharge Orders: Discharge ED (Routine); Ordered 03/02/24 Ordered By: Shakeel Carmona Referrals: Minnie Coello MD [Primary Care Provider] - 1 week Patient Instructions: Altered Mental Status (ED) Activity Restrictions/Additional Instructions: Your lab work and physical exam and imaging essentially came back unremarkable in the ER. Is thought your new diet regimen and dosing of your levodopa carbidopa may have been causing hallucinations. Please go back to your old dosing and discussed this with your provider. Your symptoms worsen or return please feel free to return to the ER for further evaluation. 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 Tamia Foley. Bilateral L3-L4 hemilaminotomy/foraminotomy, with limited discectomy. Bilateral L2-L3 laminotomy/foraminotomy. S/P tonsillectomy and adenoidectomy S/P cataract extraction BILATERAL S/P cholecystectomy S/P shoulder surgery H/O elbow surgery Family History Grandmother CAD (coronary artery disease) Cancer Myocardial infarct Family/Other Hypertension Mother , at age 95 No problems noted. Father , at age 39 Blood clot associated with vein wall inflammation Social History Smoking and tobacco/nicotine status: never used tobacco/nicotine Alcohol intake: never Substance/Drug Use: never Household members: family and children Marital status: / Current occupational status: retired Course Vital Signs: Vital signs: Vital Signs Temperature 98.5 F 03/02/24 16:51 Pulse Rate 70 03/02/24 20:39 Respiratory Rate 18 03/02/24 20:39 Blood Pressure 143/70 03/02/24 20:39 Pulse Oximetry 92 03/02/24 20:39 Oxygen Delivery Me thod Room Air 03/02/24 18:26 MDM - Altered Mental Status Medical Decision Making Care signed out to Dr. Carmona at change of shift. See final notes for diagnosis and disposition. Chart was reviewed, lab work was noted, physical exam was performed. Long discussion with the daughter about patient's new dosing regimen of medicine. We will go back to the old dosing of 4 times a day of the levodopa instead of the double dose in the morning. She will discuss this with the [facility]. Lab Data 03/02/24 17:30 03/02/24 17:30 Radiology Impressions Chest X-Ray 03/02/24 17:18 IMPRESSION: No acute findings. Head CT 03/02/24 17:19 IMPRESSION: No acute intracranial abnormality. Laboratory Results WBC 7.20 10^3/uL (3.29-11.43) 03/02/24 17:30 RBC 4.14 10^6/uL (3.85-5.65) 03/02/24 17:30 Hgb 13.40 g/dL (11.27-16.99) 03/02/24 17:30 Hct 40.6 % (37-53) 03/02/24 17:30 MCV 98.1 fl (82-101) 03/02/24 17:30 MCH 32.4 pg (27-33) 03/02/24 17:30 MCHC 33.0 g/dL (30-55) 03/02/24 17:30 RDW 12.7 % (12.1-15.1) 03/02/24 17:30 Plt Count 174 10^3/cmm (157-399) 03/02/24 17:30 MPV 10.5 fL (7.4-10.4) H 03/02/24 17:30 Neut % (Auto) 68.0 % 03/02/24 17:30 Lymph % (Auto) 19.7 % 03/02/24 17:30 [place] % (Auto) 9.7 % 03/02/24 17:30 Eos % (Auto) 1.7 % 03/02/24 17:30 Baso % (Auto) 0.6 % 03/02/24 17:30 Neut # (Auto) 4.90 10^3/uL (1.8-7.7) 03/02/24 17:30 Lymph # (Auto) 1.4 10^3/uL (0.8-4.8) 03/02/24 17:30 [place] # (Auto) 0.7 10^3/uL (0.2-0.9) 03/02/24 17:30 Eos # (Auto) 0.1 10^3/uL (0.0-0.8) 03/02/24 17:30 Baso # (Auto) 0.0 10^3/uL (0.0-0.1) 03/02/24 17:30 Nucleated RBC % (auto) 0 % 03/02/24 17: Nucleated RBCs # 0.0 /100WBC 03/02/24 17:30 Sodium 139 mmol/L (136-145) 03/02/24 17:30 Potassium 4.4 mmol/L (3.5-5.1) 03/02/24 17:30 Chloride 105 mmol/L (98-107) 03/02/24 17:30 Carbon Dioxide 25 mmol/L (22-29) 03/02/24 17:30 Anion Gap 13.4 (5-19) 03/02/24 17:30 BUN 15 mg/dL (8-23) 03/02/24 17:30 Creatinine 0.9 mg/dL (0.7-1.2) 03/02/24 17:30 GFR Calculation Not Reportable 03/02/24 17:30 Glucose 94 mg/dL (65-115) 03/02/24 17:30 Calculated Osmolality 289 mOsm/kg (285-295) 03/02/24 17:30 Lactic Acid 1.1 mmol/L (0.5-2.2) 03/02/24 17:30 Calcium 9.0 mg/dL (8.5-10.5) 03/02/24 17:30 Total Bilirubin 0.4 mg/dL (0.15-1.2) 03/02/24 17:30 AST 14 U/L (0-40) 03/02/24 17:30 ALT 6 U/L (0-41) 03/02/24 17:30 Alkaline Phosphatase 121 U/L (40-130) 03/02/24 17:30 Troponin T Baseline 16 ng/L (0-15) H 03/02/24 17:30 Troponin T 120 Minute 14.58 ng/L (0-15) 03/02/24 19:44 Delta Troponin T -1.42 ABS# (0-10) L 03/02/24 19:44 Total Protein 6.6 g/dL (6.6-8.7) 03/02/24 17:30 Albumin 3.9 g/dL (3.5-5.2) 03/02/24 17:30 Globulin 2.7 g/dL (1.3-4.6) 03/02/24 17:30 Urine Color Yellow (Yellow) 03/02/24 19:03 Urine Appearance Clear (CLEAR) 03/02/24 19:03 Urine pH 6 (5-7) 03/02/24 19:03 Ur Specific [place] 1.020 (1.005-1.030) 03/02/24 19:03 Urine Protein Neg (Negative) 03/02/24 19:03 Urine Glucose (UA) Norm (Normal) 03/02/24 19:03 Urine Ketones Negative (Negative) 03/02/24 19:03 Urine Blood Neg (Negative) 03/02/24 19:03 Urine Nitrate Negative (Negative) 03/02/24 19:03 Urine Bilirubin Neg (Negative) 03/02/24 19:03 Urine Urobilinogen Neg mg/dL (Negative) 03/02/24 19:03 Ur Leukocyte Esterase Negative (Negative) 03/02/24 19:03 All radiology interpretation(s) finalized by discharge Discharge Plan Discharge Patient Disposition: Home Clinical Impression: Altered mental status Qualifiers: Altered mental status type: transient alteration of awareness Qualified Code(s): R40.4 - Transient alteration of awareness Condition: Stable Prescriptions: No Action Stool Softener 50 mg capsule 50 - 100 mg PO DAILY PRN (Reason: Constipation) oxybutynin chloride 5 mg tablet 5 mg PO BID carboxymethylcellulose sodium 1 % drops, liquid gel 1 drp ophthalmic (eye) BID PRN (Reason: Dry Eye(S)) nitroglycerin 0.4 mg tablet, sublingual 0.4 mg sublingual Q5M PRN (Reason: chest pain) Qty: 25 3RF Rx Instructions: do not exceed 3 doses per episode ondansetron 4 mg tablet,disintegrating 4 mg PO Q8H PRN Celexa 40 mg tablet 20 mg PO BEDTIME Qty: 90 3RF trazodone 50 mg tablet 50 mg PO DAILY Qty: 90 3RF midodrine 5 mg tablet 5 mg PO TID Qty: 90 4RF Rx Instructions: do not give last dose of day after 6PM or within 4 hrs of bedtime Myrbetriq 25 mg tablet extended release 24 hr 25 mg PO DAILY Qty: 30 5RF carbidopa-levodopa 25-100 mg tablet See Rx Instructions .ROUTE .COMPLEX Qty: 360 3RF Dose Instruction: TAKE 1 TABLET BY MOUTH IN THE MORNING, 1 TABLET AT NOON, 1 IN THE AFTERNOON, AND 1 AT 4 PM Rx Instructions: TAKE 1 TABLET BY MOUTH IN THE MORNING, 1 TABLET AT NOON, 1 IN THE AFTERNOON, AND 1 AT 4 PM cholecalciferol (vitamin D3) [Vitamin D3] 25 mcg (1,000 unit) Tablet 75 mcg PO QAM polyethylene glycol 3350 [Miralax] 17 gram powder in packet 17 g PO DAILY PRN (Reason: Constipation) Tylenol Extra Strength 500 mg tablet 1,000 mg PO BID PRN (Reason: Pain) isosorbide mononitrate 30 mg tablet extended release 24 hr 15 mg PO BEDTIME aspirin 81 mg Tablet,Delayed Release (Dr/Ec) 81 mg PO QAM Thc Gummies 0.5 tab PO DAILY miconazole nitrate 2 % Powder See Rx Instructions .ROUTE .COMPLEX Rx Instructions: apply topically three times a day as needed for fungal infection or to rectum Pepcid 20 mg Tablet 20 mg PO BID PRN (Reason: Heartburn) Lidocaine Viscous 2 % Solution See Rx Instructions .ROUTE .COMPLEX Rx Instructions: mix with water and use as directed as needed zinc oxide 40 % Ointment 1 applic TOPICAL DAILY pantoprazole 40 mg tablet,delayed release (DR/EC) 40 mg PO DAILY@12 Flomax 0.4 mg capsule 0.4 mg PO DAILY Qty: 20 0RF Discharge Orders: Discharge ED (Routine); Ordered 03/02/24 Ordered By: Shakeel Carmona Referrals: Minnie Coello MD [Primary Care Provider] - 1 week Patient Instructions: Altered Mental Status (ED) Activity Restrictions/Additional Instructions: Your lab work and physical exam and imaging essentially came back unremarkable in the ER. Is thought your new diet regimen and dosing of your levodopa carbidopa may have been causing hallucinations. Please go back to your old dosing and discussed this with your provider. Your symptoms worsen or return please feel free to return to the ER for further evaluation. Coding Level of Care Code ED Clinical Research Associate for Krystyna Antony
[2024-03-02 17:53] LABS: Alanine Aminotransferase 6 U/L (0-41); Albumin Level 3.9 g/dL (3.5-5.2); Alkaline Phosphatase 121 U/L (40-130); Aspartate Amino Transferase 14 U/L (0-40); Blood Urea Nitrogen 15 mg/dL (8-23); Carbon Dioxide 25 mmol/L (22-29); Chloride 105 mmol/L (98-107); Creatinine Clr Calc Pharmacy 61.5459; Globulin 2.7 g/dL (1.3-4.6); Glucose 94 mg/dL (65-115); Osmolality Calculated 289 mOsm/kg (285-295); Sodium 139 mmol/L (136-145); Total Bilirubin 0.4 mg/dL (0.15-1.2); Total Protein 6.6 g/dL (6.6-8.7)
[2024-03-02 17:54] LABS: Lactic Sepsis W/Reflex 1.1 mmol/L (0.5-2.2); Troponin(5th) Baseline 16 ng/L (0-15)
[2024-03-02 18:01] LABS: Anion Gap 13.4 (5-19); Potassium 4.4 mmol/L (3.5-5.1)
[2024-03-02 18:26] VITALS: PULSE 60; O2SAT 94
--- NOTE | 2024-03-02 18:47 | PC.NURSE ---
Assumed care of patient from Glory GRACE and student shannen.
[2024-03-02 19:09] LABS: Add Urine Microscopic? NO; Charge for UA Resulting for Rev
--- NOTE | 2024-03-02 19:17 | ECG_ITS ---
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 Measurements Intervals [place] Rate: 68 P: 32 FL: 169 QRS: -26 QRSD: 130 T: 14 QT: 432 QTc: 460 Interpretive Statements SINUS RHYTHM RIGHT BUNDLE BRANCH BLOCK [120+ ms QRS DURATION, UPRIGHT V1, 40+ ms S IN I/aVL/V4/V5/V6] MINIMAL VOLTAGE CRITERIA FOR LVH, CONSIDER NORMAL VARIANT [MEETS CRITERIA IN ONE OF: R(aVL), S(V1), R(V5), R(V5/V6)+S(V1)] POSSIBLE SEPTAL MYOCARDIAL INFARCTION , PROBABLY OLD [30 ms Q WAVE IN V1/V2] Compared to ECG 03/02/2024 16:55:07 Right bundle-branch block now present Intraventricular conduction delay no longer present Myocardial infarct finding still present Electronically Signed On 03-02-2024 23:13:52 CDT by Maikel Oesi M.D. [id number]
[2024-03-02 19:25] LABS: Bilirubin Urine Neg (Negative); Blood Urine Neg (Negative); Glucose Urine UA Norm (Normal); Ketones Urine Negative (Negative); Leukocyte Esterase Urine Negative (Negative); Nitrate Urine Negative (Negative); Protein Urine Neg (Negative); Urine Appearance Clear (CLEAR); Urine Color Yellow (Yellow); Urobilinogen Urine Neg (Negative); pH Urine 6 (5-7)
[2024-03-02 20:15] LABS: Troponin 5 2HR 14.58 ng/L (0-15)
[2024-03-02 20:17] LABS: Troponin 5 2HR Delta -1.42 ABS# (0-10)
[2024-03-02 20:39] VITALS: BP 143/70; PULSE 70; RESP 18; O2SAT 92
== END 2024-03-02 20:41 | disposition home or self-care (01) ==
PROVIDERS: Emergency Provider Family Medicine; PCP Family Medicine
DX: R40.4 Transient alteration of awareness (principal); Z79.82 Long term (current) use of aspirin; I25.10 Atherosclerotic heart disease of native coronary artery without angina pectoris; I25.2 Old myocardial infarction; G20.A1 Parkinson's disease without dyskinesia, without mention of fluctuations; F02.80 Dementia in other diseases classified elsewhere, unspecified severity, without behavioral disturbance, psychotic disturbance, mood disturbance, and anxiety; Z85.46 Personal history of malignant neoplasm of prostate; Z92.3 Personal history of irradiation
CPT/HCPCS: 36415; 70450; 71045; 80053; 81003; 83605; 84484; 85025; 93005; 99285

== ENCOUNTER 2024-03-22 21:38 | Emergency (ER) | payer OTHER, SELFPAY ==
[2024-03-22 21:39] VITALS: BP 179/86; PULSE 66; RESP 18; TEMP 36.8; O2SAT 94; BMI 27.1
--- NOTE | 2024-03-22 21:41 | ECG_ITS ---
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 Measurements Intervals [place] Rate: 68 P: 12 CO: 162 QRS: -37 QRSD: 122 T: 16 QT: 422 QTc: 449 Interpretive Statements SINUS RHYTHM LEFT AXIS DEVIATION [QRS AXIS < -30] RIGHT BUNDLE BRANCH BLOCK [120+ ms QRS DURATION, UPRIGHT V1, 40+ ms S IN I/aVL/V4/V5/V6] MINIMAL VOLTAGE CRITERIA FOR LVH, CONSIDER NORMAL VARIANT [MEETS CRITERIA IN ONE OF: R(aVL), S(V1), R(V5), R(V5/V6)+S(V1)] POSSIBLE SEPTAL MYOCARDIAL INFARCTION , OF INDETERMINATE AGE [30 ms Q WAVE IN V1/V2] Compared to ECG 03/02/2024 19:17:37 Left-axis deviation now present Myocardial infarct finding still present Electronically Signed On 03-23-2024 14:26:45 CDT by Maikel Osei M.D. [id number]
--- NOTE | 2024-03-22 21:51 | ED_ITS ---
HPI - General Adult 2 General: Chief complaint: General Medical Stated complaint: BP issues Time Seen by Provider: 03/22/24 21:40 Source: patient and EMS Mode of arrival: EMS Limitations: no limitations History of Present Illness: 84-year-old male who has a history of Pa rkinson's asked has a history of low blood pressures he is on midodrine at the assisted living they take his blood pressure there tonight and it was elevated they came concerned. It is 179/86 here patient has no complaints he states he feels completely fine denies any pain anywhere. Associated symptoms: Deny chest pain, dyspnea, headache(s), nausea, rash or vomiting Review of Systems 2 Const: Denies: fever(s), chills, body aches or change in appetite Eyes: Denies: blurry vision or eye discomfort ENMT: Denies: throat pain or dental pain Card: Denies: chest pain Resp: Denies: dyspnea GI: Denies: abdominal pain, nausea, vomiting or diarrhea : Denies: dysuria Musc: Denies: neck pain or back pain Skin/Breast: Denies: rash Neuro: Denies: headache(s) PFSH ED 2 PFSH: Medical History Sleep apnea Chronic constipation Dementia CAD (coronary artery disease) Hypertensive emergency Non-ST elevation [place] (NSTEMI) 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 Tamia Foley. Bilateral L3-L4 hemilaminotomy/foraminotomy, with limited discectomy. Bilateral L2-L3 laminotomy/foraminotomy. S/P tonsillectomy and adenoidectomy S/P cataract extraction BILATERAL S/P cholecystectomy S/P shoulder surgery H/O elbow surgery Family History Grandmother CAD (coronary artery disease) Cancer Myocardial infarct Family/Other Hypertension Mother , at age 95 No problems noted. Father , at age 39 Blood clot associated with vein wall inflammation Social History Smoking and tobacco/nicotine status: never used tobacco/nicotine Alcohol intake: never Substance/Drug Use: never Household members: family and children Marital status: / Current occupational status: retired Physical Exam 2 Const: COMMON NORMALS: no acute distress, patient oriented x3 and healthy appearing HENMT: COMMON NORMALS: normocephalic and atraumatic HEAD & SCALP: n ormocephalic and atraumatic Eye: COMMON NORMALS: Equal, round and reactive pupils present and EOMs intact bilaterally PUPIL: Yes Equal, round and reactive pupils present Neck/C-Spine: COMMON NORMALS: full ROM and supple Chest: COMMONS NORMALS: normal inspection of the chest Resp: COMMON NORMALS: normal respiratory effort, No retractions, No use of accessory muscles and clear to auscultation bilaterally AUSCULTATION: clear to auscultation bilaterally Cardio: COMMON NORMALS: regular rate, regular rhythm and No murmurs present (Cardio) RATE: regular rate RHYTHM: regular rhythm Extremity: COMMON NORMALS: normal to inspection and full ROM Neuro: COMMON NORMALS: patient oriented x3, moves all extremities and no focal motor deficits Psych: COMMON NORMALS: mental status grossly normal, Normal thought process present and cooperative THOUGHT PROCESS: Normal thought process present Skin: COMMON NORMALS: no rashes or lesions noted and no wounds GENERAL SKIN EXAM: no rashes or lesions noted Course 2 Vital Signs: Vital signs: Vital Signs Temperature 98.2 F 03/22/24 21:39 Pulse Rate 67 03/22/24 22:30 Respiratory Rate 12 03/22/24 22:30 Blood Pressure 144/71 03/22/24 22:30 Pulse Oximetry 93 03/22/24 22:30 Oxygen Delivery Me thod Room Air 03/22/24 21:39 MDM - General Adult Medical Decision Making Patient presents with hypertension patient has some history of hypotension he is on midodrine for that did not treat his blood pressure here as he is asymptomatic he did not want to drop it informed family they are to hold his midodrine at assisted living if it continues to run a little high and to follow- up with PCP blood work EKG is normal here Medical Records I reviewed the patient's medical records. Lab Data I reviewed the patient's lab results. 03/22/24 22:02 03/22/24 22:02 Laboratory Results WBC 8.10 10^3/uL (3.29-11.43) 03/22/24 22: RBC 3.77 10^6/uL (3.85-5.65) L 03/22/24 22:02 Hgb 12.40 g/dL (11.27-16.99) 03/22/24 22: Hct 36.8 % (37-53) L 03/22/24 22: MCV 97.6 fl (82-101) 03/22/24 22: MCH 32.9 pg (27-33) 03/22/24 22: MCHC 33.7 g/dL (30-55) 03/22/24 22: RDW 12.9 % (12.1-15.1) 03/22/24 22: Plt Count 169 10^3/cmm (157-399) 03/22/24 22: MPV 10.8 fL (7.4-10.4) H 03/22/24 22: Neut % (Auto) 60.4 % 03/22/24 22: Lymph % (Auto) 27.2 % 03/22/24 22: [place] % (Auto) 9.5 % 03/22/24 22: Eos % (Auto) 2.3 % 03/22/24 22: Baso % (Auto) 0.5 % 03/22/24 22:02 Neut # (Auto) 4.89 10^3/uL (1.8-7.7) 03/22/24 22: Lymph # (Auto) 2.2 10^3/uL (0.8-4.8) 03/22/24 22: [place] # (Auto) 0.8 10^3/uL (0.2-0.9) 03/22/24 22: Eos # (Auto) 0.2 10^3/uL (0.0-0.8) 03/22/24 22: Baso # (Auto) 0.0 10^3/uL (0.0-0.1) 03/22/24 22:02 Nucleated RBC % (auto) 0 % 03/22/24 22:02 Nucleated RBCs # 0.0 /100WBC 03/22/24 22:02 Sodium 141 mmol/L (136-145) 03/22/24 22:02 Potassium 4.1 mmol/L (3.5-5.1) 03/22/24 22:02 Chloride 108 mmol/L (98-107) H 03/22/24 22:02 Carbon Dioxide 23 mmol/L (22-29) 03/22/24 22:02 Anion Gap 14.1 (5-19) 03/22/24 22:02 BUN 19 mg/dL (8-23) 03/22/24 22:02 Creatinine 0.8 mg/dL (0.7-1.2) 03/22/24 22:02 GFR Calculation Not Reportable 03/22/24 22:02 Glucose 106 mg/dL (65-115) 03/22/24 22:02 Calculated Osmolality 295 mOsm/kg (285-295) 03/22/24 22:02 Calcium 8.7 mg/dL (8.5-10.5) 03/22/24 22:02 Total Bilirubin 0.3 mg/dL (0.15-1.2) 03/22/24 22:02 AST 11 U/L (0-40) 03/22/24 22:02 ALT 7 U/L (0-41) 03/22/24 22:02 Alkaline Phosphatase 116 U/L (40-130) 03/22/24 22:02 Total Protein 6.4 g/dL (6.6-8.7) L 03/22/24 22:02 Albumin 3.6 g/dL (3.5-5.2) 03/22/24 22:02 Globulin 2.8 g/dL (1.3-4.6) 03/22/24 22:02 No radiology studies performed this visit EKG Data EKG 1: I personally reviewed and interpreted this EKG as follows: EKG interpretation date: 03/22/24 EKG interpretation time: 21:41 Interpretation: nsr hr [address] or t wave abnormalities qrs 122 qtc 438 Discharge Plan Discharge Patient Disposition: Home Clinical Impression: Hypertension Qualifiers: Hypertension type: essential hypertension Qualified Code(s): I10 - Essential (primary) hypertension Prescriptions: No Action Stool Softener 50 mg capsule 50 - 100 mg PO DAILY PRN (Reason: Constipation) oxybutynin chloride 5 mg tablet 5 mg PO BID carboxymethylcellulose sodium 1 % drops, liquid gel 1 drp ophthalmic (eye) BID PRN (Reason: Dry Eye(S)) nitroglycerin 0.4 mg tablet, sublingual 0.4 mg sublingual Q5M PRN (Reason: chest pain) Qty: 25 3RF Rx Instructions: do not exceed 3 doses per episode ondansetron 4 mg tablet,disintegrating 4 mg PO Q8H PRN Celexa 40 mg tablet 20 mg PO BEDTIME Qty: 90 3RF trazodone 50 mg tablet 50 mg PO DAILY Qty: 90 3RF midodrine 5 mg tablet 5 mg PO TID Qty: 90 4RF Rx Instructions: do not give last dose of day after 6PM or within 4 hrs of bedtime Myrbetriq 25 mg tablet extended release 24 hr 25 mg PO DAILY Qty: 90 3RF carbidopa-levodopa 25-100 mg tablet 1 tab PO TID Qty: 180 3RF Rx Instructions: take 1 tablet in the AM, 1/2 tablet at noon, and 1/2 tablet at 4PM cholecalciferol (vitamin D3) [Vitamin D3] 25 mcg (1,000 unit) Tablet 75 mcg PO QAM polyethylene glycol 3350 [Miralax] 17 gram powder in packet 17 g PO DAILY PRN (Reason: Constipation) Tylenol Extra Strength 500 mg tablet 1,000 mg PO BID PRN (Reason: Pain) isosorbide mononitrate 30 mg tablet extended release 24 hr 15 mg PO BEDTIME aspirin 81 mg Tablet,Delayed Release (Dr/Ec) 81 mg PO QAM Thc Gummies 0.5 tab PO DAILY miconazole nitrate 2 % Powder See Rx Instructions .ROUTE .COMPLEX Rx Instructions: apply topically three times a day as needed for fungal infection or to rectum Pepcid 20 mg Tablet 20 mg PO BID PRN (Reason: Heartburn) Lidocaine Viscous 2 % Solution See Rx Instructions .ROUTE .COMPLEX Rx Instructions: mix with water and use as directed as needed zinc oxide 40 % Ointment 1 applic TOPICAL DAILY pantoprazole 40 mg tablet,delayed release (DR/EC) 40 mg PO DAILY@12 Flomax 0.4 mg capsule 0.4 mg PO DAILY Qty: 20 0RF Discharge Orders: Discharge ED (Routine); Ordered 03/22/24 Ordered By: Catrachito Tony Referrals: Minnie Coello MD [Primary Care Provider] - 1-3 days Discharge Diet: Advance as tolerated Discharge Activity: Resume usual activity Patient Instructions: Hypertension (ED) Coding Level of Care Code ED Chucking 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
[2024-03-22 21:57] VITALS: BP 179/86; PULSE 65; RESP 18; O2SAT 95
[2024-03-22 22:00] VITALS: BP 163/78; PULSE 66; RESP 27; O2SAT 96
[2024-03-22 22:06] LABS: Basophils % 0.5 %; Eosinophils # 0.2 10^3/uL (0.0-0.8); Eosinophils % 2.3 %; Hematocrit 36.8 % (37-53); Lymphocytes # 2.2 10^3/uL (0.8-4.8); Lymphocytes % 27.2 %; Mean Corpuscular HGB Conc 33.7 g/dL (30-55); Mean Corpuscular Hemoglobin 32.9 pg (27-33); Mean Corpuscular Volume 97.6 fl (82-101); Mean Platelet Volume 10.8 fL (7.4-10.4); Monocytes # 0.8 10^3/uL (0.2-0.9); Monocytes % 9.5 %; Neutrophils # 4.89 10^3/uL (1.8-7.7); Neutrophils % 60.4 %; Nucleated Red Blood Cells % 0 %; Platelet Count 169 10^3/cmm (157-399); Red Blood Count 3.77 10^6/uL (3.85-5.65); Red Cell Distribution Width 12.9 % (12.1-15.1)
[2024-03-22 22:22] LABS: Alanine Aminotransferase 7 U/L (0-41); Albumin Level 3.6 g/dL (3.5-5.2); Alkaline Phosphatase 116 U/L (40-130); Anion Gap 14.1 (5-19); Aspartate Amino Transferase 11 U/L (0-40); Blood Urea Nitrogen 19 mg/dL (8-23); Calcium 8.7 mg/dL (8.5-10.5); Carbon Dioxide 23 mmol/L (22-29); Chloride 108 mmol/L (98-107); Creatinine Clr Calc Pharmacy 69.2391; Globulin 2.8 g/dL (1.3-4.6); Glucose 106 mg/dL (65-115); Osmolality Calculated 295 mOsm/kg (285-295); Potassium 4.1 mmol/L (3.5-5.1); Sodium 141 mmol/L (136-145); Total Bilirubin 0.3 mg/dL (0.15-1.2); Total Protein 6.4 g/dL (6.6-8.7)
[2024-03-22 22:30] VITALS: BP 144/71; PULSE 67; RESP 12; O2SAT 93
[2024-03-22 23:39] VITALS: BP 178/74; PULSE 89
== END 2024-03-22 23:40 | disposition home or self-care (01) ==
PROVIDERS: Emergency Provider Emergency Medicine; PCP Family Medicine
DX: I10 Essential (primary) hypertension (principal); Z79.82 Long term (current) use of aspirin; I25.10 Atherosclerotic heart disease of native coronary artery without angina pectoris; G20.A1 Parkinson's disease without dyskinesia, without mention of fluctuations; F02.80 Dementia in other diseases classified elsewhere, unspecified severity, without behavioral disturbance, psychotic disturbance, mood disturbance, and anxiety; I25.2 Old myocardial infarction; Z85.46 Personal history of malignant neoplasm of prostate; Z92.3 Personal history of irradiation
CPT/HCPCS: 80053; 85025; 93005; 99284

== ENCOUNTER 2024-03-31 18:46 | Emergency (ER) | payer OTHER, SELFPAY ==
[2024-03-31 19:46] VITALS: BP 185/84; PULSE 78; RESP 18; TEMP 36.9; O2SAT 97; BMI 27.2
[2024-03-31 20:52] LABS: Basophils % 0.3 %; Eosinophils # 0.1 10^3/uL (0.0-0.8); Eosinophils % 0.5 %; Hematocrit 39.6 % (37-53); Lymphocytes # 1.9 10^3/uL (0.8-4.8); Lymphocytes % 13.9 %; Mean Corpuscular HGB Conc 33.3 g/dL (30-55); Mean Corpuscular Hemoglobin 32.6 pg (27-33); Mean Corpuscular Volume 97.8 fl (82-101); Mean Platelet Volume 10.8 fL (7.4-10.4); Monocytes % 7.1 %; Neutrophils # 10.34 10^3/uL (1.8-7.7); Neutrophils % 77.8 %; Nucleated Red Blood Cells % 0 %; Platelet Count 191 10^3/cmm (157-399); Red Blood Count 4.05 10^6/uL (3.85-5.65); Red Cell Distribution Width 12.9 % (12.1-15.1); White Blood Count 13.29 10^3/uL (3.29-11.43)
[2024-03-31 21:09] LABS: Anion Gap 14.3 (5-19); Blood Urea Nitrogen 23 mg/dL (8-23); Calcium 8.6 mg/dL (8.5-10.5); Carbon Dioxide 23 mmol/L (22-29); Chloride 107 mmol/L (98-107); Creatinine Clr Calc Pharmacy 61.7081; Glucose 109 mg/dL (65-115); Osmolality Calculated 294 mOsm/kg (285-295); Potassium 4.3 mmol/L (3.5-5.1); Sodium 140 mmol/L (136-145)
--- NOTE | 2024-03-31 23:10 | ED_ITS ---
HPI - Male Genitourinary 2 General: Chief complaint: Urogenital-Male Stated complaint: Peeing Blood\ABD Pain Time Seen by Provider: 03/31/24 23:06 History of Present Illness: 84 year old gentleman here with gross he maturia. He has not complained of much pain to family. He presents with symptoms of frequency and urgency, but little urine output. He had more than two episodes of gross hematuria at home. No fever. No vomiting. He has not had this before. 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 Tamia Foley. Bilateral L3-L4 hemilaminotomy/foraminotomy, with limited discectomy. Bilateral L2-L3 laminotomy/foraminotomy. S/P tonsillectomy and adenoidectomy S/P cataract extraction BILATERAL S/P cholecystectomy S/P shoulder surgery H/O elbow surgery Family History Grandmother CAD (coronary artery disease) Cancer Myocardial infarct Family/Other Hypertension Mother , at age 95 No problems noted. Father , at age 39 Blood clot associated with vein wall inflammation Social History Smoking and tobacco/nicotine status: never used tobacco/nicotine Alcohol intake: never Substance/Drug Use: never Household members: family and children Marital status: / Current occupational status: retired Physical Exam 2 Const: COMMON NORMALS: no acute distress and alert GENERAL APPEARANCE: c ooperative and frail appearing ORIENTATION/CONSCIOUSNESS: Yes oriented to person HENMT: COMMON NORMALS: normocephalic, atraumatic and Normal external nose present HEAD & SCALP: normocephalic and atraumatic FACE & SINUS: normal facial exam and face symmetric NOSE: Normal external nose present Eye: COMMON NORMALS: Equal, round and reactive pupils present and EOMs intact bilaterally PUPIL: Yes Equal, round and reactive pupils present Neck/C-Spine: GENERAL: Yes trachea midline Chest: CHEST: Yes Symmetrical chest wall rise Resp: COMMON NORMALS: normal respiratory effort, No retractions, No use of accessory muscles and clear to auscultation bilaterally AUSCULTATION: clear to auscultation bilaterally Cardio: COMMON NORMALS: regular rate and regular rhythm RATE: regular rate RHYTHM: regular rhythm GI: COMMON NORMALS: Normal to inspection, nondistended, normoactive bowel sounds present Extremity: COMMON NORMALS: no pedal edema Neuro: SENSORIUM/ORIENTATION: Yes alert and Yes oriented to person SENSORY EXAM: Yes extremities (intact) Psych: COMMON NORMALS: speech normal SPEECH: Yes normal speech Skin: COMMON NORMALS: no rashes or lesions noted GENERAL SKIN EXAM: no rashes or lesions noted Course 2 Vital Signs: Vital signs: Vital Signs Temperature 98.5 F 03/31/24 19:46 Pulse Rate 76 04/01/24 02:32 Respiratory Rate 18 04/01/24 02:32 Blood Pressure 205/90 04/01/24 02:32 Pulse Oximetry 96 04/01/24 02:32 Oxygen Delivery Me thod Room Air 03/31/24 19:46 MDM - Male Medical Decision Making No significant gross hematuria here. Urinary catheter placement was attempted, but was unsuccessful. Following this, the patient was able to urinate more freely. I expect the catheter attempt dilated his urethra enough to make urine output more possible. His post void residual volume by bladder scan is not significant. His UA did show 50 to 80 red blood cells, with only trace leukocyte esterase. He has been treated for a UTI recently. I am concerned given the pain he had with trying to pass the catheter, that he may be experiencing prostatitis more than simply UTI. He'll be placed on an extended course of antibiotics for this. White blood cell count was mildly elevated, but he is a febrile, and other laboratory is not terribly remarkable. He will need outpatient follow up, particularly with urology. Lab Data 03/31/24 20:39 03/31/24 20:39 Laboratory Results WBC 13.29 10^3/uL (3.29-11.43) H 03/31/24 20:39 RBC 4.05 10^6/uL (3.85-5.65) 03/31/24 20:39 Hgb 13.20 g/dL (11.27-16.99) 03/31/24 20:39 Hct 39.6 % (37-53) 03/31/24 20:39 MCV 97.8 fl (82-101) 03/31/24 20:39 MCH 32.6 pg (27-33) 03/31/24 20:39 MCHC 33.3 g/dL (30-55) 03/31/24 20:39 RDW 12.9 % (12.1-15.1) 03/31/24 20:39 Plt Count 191 10^3/cmm (157-399) 03/31/24 20:39 MPV 10.8 fL (7.4-10.4) H 03/31/24 20:39 Neut % (Auto) 77.8 % 03/31/24 20:39 Lymph % (Auto) 13.9 % 03/31/24 20:39 [place] % (Auto) 7.1 % 03/31/24 20:39 Eos % (Auto) 0.5 % 03/31/24 20:39 Baso % (Auto) 0.3 % 03/31/24 20:39 Neut # (Auto) 10.34 10^3/uL (1.8-7.7) H 03/31/24 20:39 Lymph # (Auto) 1.9 10^3/uL (0.8-4.8) 03/31/24 20:39 [place] # (Auto) 1.0 10^3/uL (0.2-0.9) H 03/31/24 20:39 Eos # (Auto) 0.1 10^3/uL (0.0-0.8) 03/31/24 20:39 Baso # (Auto) 0.0 10^3/uL (0.0-0.1) 03/31/24 20:39 Nucleated RBC % (auto) 0 % 03/31/24 20:39 Nucleated RBCs # 0.0 /100WBC 03/31/24 20:39 Sodium 140 mmol/L (136-145) 03/31/24 20:39 Potassium 4.3 mmol/L (3.5-5.1) 03/31/24 20:39 Chloride 107 mmol/L (98-107) 03/31/24 20:39 Carbon Dioxide 23 mmol/L (22-29) 03/31/24 20:39 Anion Gap 14.3 (5-19) 03/31/24 20:39 BUN 23 mg/dL (8-23) 03/31/24 20:39 Creatinine 0.9 mg/dL (0.7-1.2) 03/31/24 20:39 GFR Calculation Not Reportable 03/31/24 20:39 Glucose 109 mg/dL (65-115) 03/31/24 20:39 Calculated Osmolality 294 mOsm/kg (285-295) 03/31/24 20:39 Calcium 8.6 mg/dL (8.5-10.5) 03/31/24 20:39 Urine Color Brown (Yellow) A 04/01/24 00:11 Urine Appearance Turbid (CLEAR) A 04/01/24 00:11 Urine pH 5 (5-7) 04/01/24 00:11 Ur Specific [place] 1.025 (1.005-1.030) 04/01/24 00:11 Urine Protein 2+ (Negative) H 04/01/24 00:11 Urine Glucose (UA) Norm (Normal) 04/01/24 00:11 Urine Ketones 1+ (Negative) H 04/01/24 00:11 Urine Blood 3+ (Negative) H 04/01/24 00:11 Urine Nitrate Negative (Negative) 04/01/24 00:11 Urine Bilirubin 1+ (Negative) H 04/01/24 00:11 Urine Urobilinogen Neg mg/dL (Negative) 04/01/24 00:11 Ur Leukocyte Esterase Trace (Negative) H 04/01/24 00:11 Urine RBC 50-80 /hpf (0-2) H 04/01/24 00:11 Urine WBC 5-10 /hpf (0-5) H 04/01/24 00:11 Ur Squamous Epith Cells 0-4 /hpf (0-5) H 04/01/24 00:11 Amorphous Sediment 1+ /hpf 04/01/24 00:11 Urine Bacteria 1+ /hpf (NONE) H 04/01/24 00:11 Hyaline Casts 0-4 /lpf H 04/01/24 00:11 Coarse Granular Casts 0-4 /lpf H 04/01/24 00:11 Urine Yeast Trace /hpf 04/01/24 00:11 No radiology studies performed this visit Discharge Plan Discharge Patient Disposition: Home Clinical Impression: Acute prostatitis with hematuria Condition: Stable Prescriptions: New cefdinir 300 mg capsule 300 mg PO BID 10 Days Qty: 20 0RF No Action Stool Softener 50 mg capsule 50 - 100 mg PO DAILY PRN (Reason: Constipation) oxybutynin chloride 5 mg tablet 5 mg PO BID carboxymethylcellulose sodium 1 % drops, liquid gel 1 drp ophthalmic (eye) BID PRN (Reason: Dry Eye(S)) nitroglycerin 0.4 mg tablet, sublingual 0.4 mg sublingual Q5M PRN (Reason: chest pain) Qty: 25 3RF Rx Instructions: do not exceed 3 doses per episode ondansetron 4 mg tablet,disintegrating 4 mg PO Q8H PRN Celexa 40 mg tablet 20 mg PO BEDTIME Qty: 90 3RF trazodone 50 mg tablet 50 mg PO DAILY Qty: 90 3RF midodrine 5 mg tablet 5 mg PO TID Qty: 90 4RF Rx Instructions: do not give last dose of day after 6PM or within 4 hrs of bedtime Myrbetriq 25 mg tablet extended release 24 hr 25 mg PO DAILY Qty: 90 3RF carbidopa-levodopa 25-100 mg tablet 1 tab PO TID Qty: 180 3RF Rx Instructions: take 1 tablet in the AM, 1/2 tablet at noon, and 1/2 tablet at 4PM cholecalciferol (vitamin D3) [Vitamin D3] 25 mcg (1,000 unit) Tablet 75 mcg PO QAM polyethylene glycol 3350 [Miralax] 17 gram powder in packet 17 g PO DAILY PRN (Reason: Constipation) Tylenol Extra Strength 500 mg tablet 1,000 mg PO BID PRN (Reason: Pain) isosorbide mononitrate 30 mg tablet extended release 24 hr 15 mg PO BEDTIME aspirin 81 mg Tablet,Delayed Release (Dr/Ec) 81 mg PO QAM Thc Gummies 0.5 tab PO DAILY miconazole nitrate 2 % Powder See Rx Instructions .ROUTE .COMPLEX Rx Instructions: apply topically three times a day as needed for fungal infection or to rectum Pepcid 20 mg Tablet 20 mg PO BID PRN (Reason: Heartburn) Lidocaine Viscous 2 % Solution See Rx Instructions .ROUTE .COMPLEX Rx Instructions: mix with water and use as directed as needed zinc oxide 40 % Ointment 1 applic TOPICAL DAILY pantoprazole 40 mg tablet,delayed release (DR/EC) 40 mg PO DAILY@12 Flomax 0.4 mg capsule 0.4 mg PO DAILY Qty: 20 0RF Discharge Orders: Discharge ED (Routine); Ordered 04/01/24 Ordered By: Joey Berg Referrals: Minnie Coello MD [Primary Care Provider] - 1-3 days Patient Instructions: Prostatitis (ED), Opioid Safety, Pain Management Activity Restrictions/Additional Instructions: Return for fever despite 2-3 more doses of antibiotics, worsening mental status despite treatment, continued bleeding despite treatment, other concerning symptoms. See your doctor this week. Urine should be retested at that point. Coding Level of Care Code ED Boilermaker for Krystyna Antony
[2024-03-31 23:24] VITALS: BP 201/95; PULSE 72; O2SAT 92
[2024-04-01 00:24] VITALS: BP 188/90; PULSE 69; O2SAT 93
[2024-04-01 00:38] LABS: Add Urine Microscopic? YES; Bilirubin Urine 1+ (Negative); Blood Urine 3+ (Negative); Glucose Urine UA Norm (Normal); Ketones Urine 1+ (Negative); Leukocyte Esterase Urine Trace (Negative); Nitrate Urine Negative (Negative); Protein Urine 2+ (Negative); Specific Gravity, Urine 1.025 (1.005-1.030); Urine Appearance Turbid (CLEAR); Urine Color Brown (Yellow); Urobilinogen Urine Neg (Negative); pH Urine 5 (5-7)
[2024-04-01 00:39] LABS: Amorphous Sediment Urine 1+ /hpf; Bacteria Urine 1+ /hpf; Hyaline Casts Urine 0-4 /lpf; RBC Urine 50-80 /hpf (0-2); Squamous Epithelial Cell Urine 0-4 /hpf (0-5)
[2024-04-01 00:40] LABS: Add Urine Culture? Yes; Coarse Granular Casts Urine 0-4 /lpf
[2024-04-01] MEDS: cefTRIAXone 1,000 MG in sodium chloride 0.9% (plus) 50 ML 100 MG IV (01:47)
[2024-04-01 02:32] VITALS: BP 205/90; PULSE 76; RESP 18; O2SAT 96
== END 2024-04-01 02:53 | disposition home or self-care (01) ==
PROVIDERS: Emergency Provider Emergency Medicine; PCP Family Medicine
DX: N41.0 Acute prostatitis (principal); R31.9 Hematuria, unspecified; Z79.82 Long term (current) use of aspirin; F03.90 Unspecified dementia, unspecified severity, without behavioral disturbance, psychotic disturbance, mood disturbance, and anxiety; I25.10 Atherosclerotic heart disease of native coronary artery without angina pectoris; I25.2 Old myocardial infarction; G20.A1 Parkinson's disease without dyskinesia, without mention of fluctuations; F02.80 Dementia in other diseases classified elsewhere, unspecified severity, without behavioral disturbance, psychotic disturbance, mood disturbance, and anxiety; Z85.46 Personal history of malignant neoplasm of prostate; Z92.3 Personal history of irradiation
CPT/HCPCS: 36415; 80048; 81001; 85025; 87086; 96365; 99284; J0696

== ENCOUNTER 2024-04-06 15:19 | Emergency (ER) | payer OTHER, SELFPAY ==
[2024-04-06 15:29] VITALS: BP 190/89; PULSE 75; RESP 18; TEMP 36.6; O2SAT 96
[2024-04-06 15:42] LABS: Basophils % 0.3 %; Eosinophils # 0.1 10^3/uL (0.0-0.8); Eosinophils % 1.5 %; Hematocrit 40.9 % (37-53); Lymphocytes # 1.5 10^3/uL (0.8-4.8); Lymphocytes % 22.1 %; Mean Corpuscular Hemoglobin 32.9 pg (27-33); Mean Corpuscular Volume 96.7 fl (82-101); Mean Platelet Volume 10.8 fL (7.4-10.4); Monocytes # 0.9 10^3/uL (0.2-0.9); Monocytes % 13.1 %; Neutrophils # 4.23 10^3/uL (1.8-7.7); Neutrophils % 62.9 %; Nucleated Red Blood Cells % 0 %; Platelet Count 160 10^3/cmm (157-399); Red Blood Count 4.23 10^6/uL (3.85-5.65); Red Cell Distribution Width 12.7 % (12.1-15.1); White Blood Count 6.73 10^3/uL (3.29-11.43)
--- NOTE | 2024-04-06 15:43 | ED_ITS ---
Documented by User: Bright Aden DO 04/07/24 07:32 HPI - Nausea/Vomiting/Diarrhea 2 General: Chief complaint: Nausea/Vomiting/Diarrhea Stated complaint: N/V Time Seen by Provider: 04/06/24 15:31 Source: patient and EMS Mode of arrival: EMS History of Present Illness: 84-year-old male presents to the emergen cy room via EMS from [facility]. Patient has a history of dementia not really able to get any significant history from the patient. He is awake and alert he is has a significant tremor from Parkinson's he told me he needs blood because they did a blood test on him at the [facility] but I could not get anything else out of him he denied chest pain or abdominal pain when I checked with the nurse to sign off from the hospital and EMS was that he had been having nausea and vomiting for the last 3 days. 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 Tamia Foley. Bilateral L3-L4 hemilaminotomy/foraminotomy, with limited discectomy. Bilateral L2-L3 laminotomy/foraminotomy. S/P tonsillectomy and adenoidectomy S/P cataract extraction BILATERAL S/P cholecystectomy S/P shoulder surgery H/O elbow surgery Family History Grandmother CAD (coronary artery disease) Cancer Myocardial infarct Family/Other Hypertension Mother , at age 95 No problems noted. Father , at age 39 Blood clot associated with vein wall inflammation Social History Smoking and tobacco/nicotine status: never used tobacco/nicotine Alcohol intake: never Substance/Drug Use: never Household members: family and children Marital status: / Current occupational status: retired Physical Exam 2 Const: GENERAL APPEARANCE: cooperative ORIENTATION/CONSCIOUSNESS: Yes awake HENMT: COMMON NORMALS: normocephalic, atraumatic and hearing grossly normal bilaterally HEAD & SCALP: normocephalic and atraumatic Resp: COMMON NORMALS: normal respiratory effort, No retractions, No use of accessory muscles and clear to auscultation bilaterally AUSCULTATION: clear to auscultation bilaterally Cardio: COMMON NORMALS: regular rate, regular rhythm and No murmurs present (Cardio) RATE: regular rate RHYTHM: regular rhythm GI: COMMON NORMALS: Soft to palpation and No hepatosplenomegaly present A USCULTATION: Yes normoactive bowel sounds PALPATION: Yes Soft to palpation, No Tenderness to palpation present (GI), No Guarding due to palpation present (GI) and Yes No hepatosplenomegaly present Extremity: COMMON NORMALS: normal to inspection, capillary refill normal, no clubbing, cyanosis or edema, no calf tenderness and no pedal edema Skin: COMMON NORMALS: no rashes or lesions noted GENERAL SKIN EXAM: no rashes or lesions noted Course 2 Vital Signs: Vital signs: Vital Signs Temperature 97.9 F 04/06/24 15:29 Pulse Rate 73 04/06/24 17:50 Respiratory Rate 18 04/06/24 18:18 Blood Pressure 190/89 04/06/24 15:29 Pulse Oximetry 96 04/06/24 18:18 Oxygen Delivery Me thod Room Air 04/06/24 18:18 MDM - Nausea/Vomiting/Diarrhea Medical Decision Making Care signed out to Dr. prakash at change of shift. See final notes for diagnosis and disposition. Patient presents here with vomiting from [facility] has been well-appearing here blood works normal he is stable for discharge we will prescribe him Zofran he is follow-up with PCP return if worsening Medical Records I reviewed the patient's medical records. Lab Data I reviewed the patient's lab results. 04/06/24 15:04 04/06/24 15:04 Radiology Impressions Abdomen/Pelvis CT 04/06/24 16:28 IMPRESSION: 1. Mildly distended fluid-filled colon suggests a diarrheal illness. No sign of colonic inflammation or obstruction. 2. Incidental findings above. Laboratory Results WBC 6.73 10^3/uL (3.29-11.43) 04/06/24 15:04 RBC 4.23 10^6/uL (3.85-5.65) 04/06/24 15:04 Hgb 13.90 g/dL (11.27-16.99) 04/06/24 15:04 Hct 40.9 % (37-53) 04/06/24 15:04 MCV 96.7 fl (82-101) 04/06/24 15:04 MCH 32.9 pg (27-33) 04/06/24 15:04 MCHC 34.0 g/dL (30-55) 04/06/24 15:04 RDW 12.7 % (12.1-15.1) 04/06/24 15:04 Plt Count 160 10^3/cmm (157-399) 04/06/24 15:04 MPV 10.8 fL (7.4-10.4) H 04/06/24 15:04 Neut % (Auto) 62.9 % 04/06/24 15:04 Lymph % (Auto) 22.1 % 04/06/24 15:04 [place] % (Auto) 13.1 % 04/06/24 15:04 Eos % (Auto) 1.5 % 04/06/24 15:04 Baso % (Auto) 0.3 % 04/06/24 15:04 Neut # (Auto) 4.23 10^3/uL (1.8-7.7) 04/06/24 15:04 Lymph # (Auto) 1.5 10^3/uL (0.8-4.8) 04/06/24 15:04 [place] # (Auto) 0.9 10^3/uL (0.2-0.9) 04/06/24 15:04 Eos # (Auto) 0.1 10^3/uL (0.0-0.8) 04/06/24 15:04 Baso # (Auto) 0.0 10^3/uL (0.0-0.1) 04/06/24 15:04 Nucleated RBC % (auto) 0 % 04/06/24 15:04 Nucleated RBCs # 0.0 /100WBC 04/06/24 15:04 Sodium 141 mmol/L (136-145) 04/06/24 15:04 Potassium 3.7 mmol/L (3.5-5.1) 04/06/24 15:04 Chloride 105 mmol/L (98-107) 04/06/24 15:04 Carbon Dioxide 25 mmol/L (22-29) 04/06/24 15:04 Anion Gap 14.7 (5-19) 04/06/24 15:04 BUN 21 mg/dL (8-23) 04/06/24 15:04 Creatinine 0.8 mg/dL (0.7-1.2) 04/06/24 15:04 GFR Calculation Not Reportable 04/06/24 15:04 Glucose 96 mg/dL (65-115) 04/06/24 15:04 Calculated Osmolality 295 mOsm/kg (285-295) 04/06/24 15:04 Calcium 8.7 mg/dL (8.5-10.5) 04/06/24 15:04 Magnesium 1.9 mg/dL (1.7-2.3) 04/06/24 15:04 Total Bilirubin 0.4 mg/dL (0.15-1.2) 04/06/24 15:04 AST 37 U/L (0-40) 04/06/24 15:04 ALT 12 U/L (0-41) 04/06/24 15:04 Alkaline Phosphatase 121 U/L (40-130) 04/06/24 15:04 Total Protein 7.0 g/dL (6.6-8.7) 04/06/24 15:04 Albumin 4.0 g/dL (3.5-5.2) 04/06/24 15:04 Globulin 3.0 g/dL (1.3-4.6) 04/06/24 15:04 Lipase 18 U/L (13-60) 04/06/24 15:04 Urine Color Yellow (Yellow) 04/06/24 17:45 Urine Appearance Clear (CLEAR) 04/06/24 17:45 Urine pH 5 (5-7) 04/06/24 17:45 Ur Specific [place] 1.025 (1.005-1.030) 04/06/24 17:45 Urine Protein Trace (Negative) 04/06/24 17:45 Urine Glucose (UA) Norm (Normal) 04/06/24 17:45 Urine Ketones Negative (Negative) 04/06/24 17:45 Urine Blood 3+ (Negative) H 04/06/24 17:45 Urine Nitrate Negative (Negative) 04/06/24 17:45 Urine Bilirubin 1+ (Negative) H 04/06/24 17:45 Urine Urobilinogen Neg mg/dL (Negative) 04/06/24 17:45 Ur Leukocyte Esterase Negative (Negative) 04/06/24 17:45 Urine RBC 15-25 /hpf (0-2) H 04/06/24 17:45 Urine WBC 0-4 /hpf (0-5) H 04/06/24 17:45 Ur Squamous Epith Cells 0-4 /hpf (0-5) H 04/06/24 17:45 Amorphous Sediment Not Reportable 04/06/24 17:45 Urine Bacteria Trace /hpf (NONE) 04/06/24 17:45 Hyaline Casts 0-4 /lpf H 04/06/24 17:45 Urine Mucus 1+ /hpf 04/06/24 17:45 Discharge Plan Discharge Patient Disposition: Home Clinical Impression: Vomiting Condition: Stable Prescriptions: New ondansetron 4 mg tablet,disintegrating 4 mg PO Q6H PRN (Reason: nausea and vomiting) Qty: 14 0RF No Action nitroglycerin 0.4 mg tablet, sublingual 0.4 mg sublingual Q5M PRN (Reason: chest pain) Qty: 25 3RF Rx Instructions: do not exceed 3 doses per episode ondansetron 4 mg tablet,disintegrating 4 mg PO Q8H PRN (Reason: Nausea And Vomiting) midodrine 5 mg tablet 5 mg PO TID Qty: 90 4RF Rx Instructions: do not give last dose of day after 6PM or within 4 hrs of bedtime Myrbetriq 25 mg tablet extended release 24 hr 25 mg PO DAILY Qty: 90 3RF cholecalciferol (vitamin D3) [Vitamin D3] 25 mcg (1,000 unit) Tablet 75 mcg PO QAM isosorbide mononitrate 30 mg tablet extended release 24 hr 15 mg PO QPM aspirin 81 mg Tablet,Delayed Release (Dr/Ec) 81 mg PO QAM cefdinir 300 mg capsule 300 mg PO BID 10 Days Qty: 20 0RF famotidine [Pepcid] 20 mg Tablet 20 mg PO BID PRN (Reason: Heartburn) pantoprazole 40 mg tablet,delayed release (DR/EC) 40 mg PO DAILY@12 Artificial Tears (polyvin alc) 1.4 % Drops 2 drp OPHTHALMIC (EYE) QID PRN (Reason: Dry Eye(S)) carbidopa-levodopa 25-100 mg tablet 0.5 tab PO BID Rx Instructions: NOON AND 4 PM coenzyme Q10 100 mg Capsule 100 mg PO DAILY Fish Oil 1,000 mg (120 mg-180 mg) Capsule 1 cap PO BID Celexa 40 mg tablet 20 mg PO DAILY carbidopa-levodopa 25-100 mg tablet 1 tab PO QAM Discharge Orders: Discharge ED (Routine); Ordered 04/06/24 Ordered By: Catrachito Tony Referrals: Minnie Coello MD [Primary Care Provider] - 4-7 days Discharge Diet: Advance as tolerated Discharge Activity: Resume usual activity Patient Instructions: Acute Nausea and Vomiting (ED) Coding Level of Care Code ED Silver Service Waiter for Chg Fwd Documented by User: Catrachito Tony MD 04/06/24 18:34 HPI - Nausea/Vomiting/Diarrhea 2 General: Chief complaint: Nausea/Vomiting/Diarrhea Stated complaint: N/V Time Seen by Provider: 04/06/24 15:31 PFSH ED 2 PFSH: Medical History Sleep apnea Chronic constipation Dementia CAD (coronary artery disease) Hypertensive emergency Non-ST elevation NM (NSTEMI) 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 Tamia Foley. Bilateral L3-L4 hemilaminotomy/foraminotomy, with limited discectomy. Bilateral L2-L3 laminotomy/foraminotomy. S/P tonsillectomy and adenoidectomy S/P cataract extraction BILATERAL S/P cholecystectomy S/P shoulder surgery H/O elbow surgery Family History Grandmother CAD (coronary artery disease) Cancer Myocardial infarct Family/Other Hypertension Mother , at age 95 No problems noted. Father , at age 39 Blood clot associated with vein wall inflammation Social History Smoking and tobacco/nicotine status: never used tobacco/nicotine Alcohol intake: never Substance/Drug Use: never Household members: family and children Marital status: / Current occupational status: retired Course 2 Vital Signs: Vital signs: Vital Signs Temperature 97.9 F 04/06/24 15:29 Pulse Rate 73 04/06/24 17:50 Respiratory Rate 18 04/06/24 18:18 Blood Pressure 190/89 04/06/24 15:29 Pulse Oximetry 96 04/06/24 18:18 Oxygen Delivery Me thod Room Air 04/06/24 18:18 MDM - Nausea/Vomiting/Diarrhea Medical Decision Making Patient presents here with vomiting from [facility] has been well-appearing here blood works normal he is stable for discharge we will prescribe him Zofran he is follow-up with PCP return if worsening Lab Data 04/06/24 15:04 04/06/24 15:04 Radiology Impressions Abdomen/Pelvis CT 04/06/24 16:28 IMPRESSION: 1. Mildly distended fluid-filled colon suggests a diarrheal illness. No sign of colonic inflammation or obstruction. 2. Incidental findings above. Laboratory Results WBC 6.73 10^3/uL (3.29-11.43) 04/06/24 15:04 RBC 4.23 10^6/uL (3.85-5.65) 04/06/24 15:04 Hgb 13.90 g/dL (11.27-16.99) 04/06/24 15:04 Hct 40.9 % (37-53) 04/06/24 15:04 MCV 96.7 fl (82-101) 04/06/24 15:04 MCH 32.9 pg (27-33) 04/06/24 15:04 MCHC 34.0 g/dL (30-55) 04/06/24 15:04 RDW 12.7 % (12.1-15.1) 04/06/24 15:04 Plt Count 160 10^3/cmm (157-399) 04/06/24 15:04 MPV 10.8 fL (7.4-10.4) H 04/06/24 15:04 Neut % (Auto) 62.9 % 04/06/24 15:04 Lymph % (Auto) 22.1 % 04/06/24 15:04 [place] % (Auto) 13.1 % 04/06/24 15:04 Eos % (Auto) 1.5 % 04/06/24 15:04 Baso % (Auto) 0.3 % 04/06/24 15:04 Neut # (Auto) 4.23 10^3/uL (1.8-7.7) 04/06/24 15:04 Lymph # (Auto) 1.5 10^3/uL (0.8-4.8) 04/06/24 15:04 [place] # (Auto) 0.9 10^3/uL (0.2-0.9) 04/06/24 15:04 Eos # (Auto) 0.1 10^3/uL (0.0-0.8) 04/06/24 15:04 Baso # (Auto) 0.0 10^3/uL (0.0-0.1) 04/06/24 15:04 Nucleated RBC % (auto) 0 % 04/06/24 15:04 Nucleated RBCs # 0.0 /100WBC 04/06/24 15:04 Sodium 141 mmol/L (136-145) 04/06/24 15:04 Potassium 3.7 mmol/L (3.5-5.1) 04/06/24 15:04 Chloride 105 mmol/L (98-107) 04/06/24 15:04 Carbon Dioxide 25 mmol/L (22-29) 04/06/24 15:04 Anion Gap 14.7 (5-19) 04/06/24 15:04 BUN 21 mg/dL (8-23) 04/06/24 15:04 Creatinine 0.8 mg/dL (0.7-1.2) 04/06/24 15:04 GFR Calculation Not Reportable 04/06/24 15:04 Glucose 96 mg/dL (65-115) 04/06/24 15:04 Calculated Osmolality 295 mOsm/kg (285-295) 04/06/24 15:04 Calcium 8.7 mg/dL (8.5-10.5) 04/06/24 15:04 Magnesium 1.9 mg/dL (1.7-2.3) 04/06/24 15:04 Total Bilirubin 0.4 mg/dL (0.15-1.2) 04/06/24 15:04 AST 37 U/L (0-40) 04/06/24 15:04 ALT 12 U/L (0-41) 04/06/24 15:04 Alkaline Phosphatase 121 U/L (40-130) 04/06/24 15:04 Total Protein 7.0 g/dL (6.6-8.7) 04/06/24 15:04 Albumin 4.0 g/dL (3.5-5.2) 04/06/24 15:04 Globulin 3.0 g/dL (1.3-4.6) 04/06/24 15:04 Lipase 18 U/L (13-60) 04/06/24 15:04 Urine Color Yellow (Yellow) 04/06/24 17:45 Urine Appearance Clear (CLEAR) 04/06/24 17:45 Urine pH 5 (5-7) 04/06/24 17:45 Ur Specific [place] 1.025 (1.005-1.030) 04/06/24 17:45 Urine Protein Trace (Negative) 04/06/24 17:45 Urine Glucose (UA) Norm (Normal) 04/06/24 17:45 Urine Ketones Negative (Negative) 04/06/24 17:45 Urine Blood 3+ (Negative) H 04/06/24 17:45 Urine Nitrate Negative (Negative) 04/06/24 17:45 Urine Bilirubin 1+ (Negative) H 04/06/24 17:45 Urine Urobilinogen Neg mg/dL (Negative) 04/06/24 17:45 Ur Leukocyte Esterase Negative (Negative) 04/06/24 17:45 Urine RBC 15-25 /hpf (0-2) H 04/06/24 17:45 Urine WBC 0-4 /hpf (0-5) H 04/06/24 17:45 Ur Squamous Epith Cells 0-4 /hpf (0-5) H 04/06/24 17:45 Amorphous Sediment Not Reportable 04/06/24 17:45 Urine Bacteria Trace /hpf (NONE) 04/06/24 17:45 Hyaline Casts 0-4 /lpf H 04/06/24 17:45 Urine Mucus 1+ /hpf 04/06/24 17:45 All radiology interpretation(s) finalized by discharge Discharge Plan Discharge Patient Disposition: Home Clinical Impression: Vomiting Condition: Stable Prescriptions: New ondansetron 4 mg tablet,disintegrating 4 mg PO Q6H PRN (Reason: nausea and vomiting) Qty: 14 0RF No Action nitroglycerin 0.4 mg tablet, sublingual 0.4 mg sublingual Q5M PRN (Reason: chest pain) Qty: 25 3RF Rx Instructions: do not exceed 3 doses per episode ondansetron 4 mg tablet,disintegrating 4 mg PO Q8H PRN (Reason: Nausea And Vomiting) midodrine 5 mg tablet 5 mg PO TID Qty: 90 4RF Rx Instructions: do not give last dose of day after 6PM or within 4 hrs of bedtime Myrbetriq 25 mg tablet extended release 24 hr 25 mg PO DAILY Qty: 90 3RF cholecalciferol (vitamin D3) [Vitamin D3] 25 mcg (1,000 unit) Tablet 75 mcg PO QAM isosorbide mononitrate 30 mg tablet extended release 24 hr 15 mg PO QPM aspirin 81 mg Tablet,Delayed Release (Dr/Ec) 81 mg PO QAM cefdinir 300 mg capsule 300 mg PO BID 10 Days Qty: 20 0RF famotidine [Pepcid] 20 mg Tablet 20 mg PO BID PRN (Reason: Heartburn) pantoprazole 40 mg tablet,delayed release (DR/EC) 40 mg PO DAILY@12 Artificial Tears (polyvin alc) 1.4 % Drops 2 drp OPHTHALMIC (EYE) QID PRN (Reason: Dry Eye(S)) carbidopa-levodopa 25-100 mg tablet 0.5 tab PO BID Rx Instructions: NOON AND 4 PM coenzyme Q10 100 mg Capsule 100 mg PO DAILY Fish Oil 1,000 mg (120 mg-180 mg) Capsule 1 cap PO BID Celexa 40 mg tablet 20 mg PO DAILY carbidopa-levodopa 25-100 mg tablet 1 tab PO QAM Discharge Orders: Discharge ED (Routine); Ordered 04/06/24 Ordered By: Catrachito Tony Referrals: Minnie Coello MD [Primary Care Provider] - 4-7 days Discharge Diet: Advance as tolerated Discharge Activity: Resume usual activity Patient Instructions: Acute Nausea and Vomiting (ED) Coding Level of Care Code ED Silver Service Waiter for Krystyna Antony
[2024-04-06 15:52] VITALS: RESP 18; O2SAT 95
[2024-04-06 16:00] LABS: Alanine Aminotransferase 12 U/L (0-41); Alkaline Phosphatase 121 U/L (40-130); Anion Gap 14.7 (5-19); Aspartate Amino Transferase 37 U/L (0-40); Blood Urea Nitrogen 21 mg/dL (8-23); Calcium 8.7 mg/dL (8.5-10.5); Carbon Dioxide 25 mmol/L (22-29); Chloride 105 mmol/L (98-107); Glucose 96 mg/dL (65-115); Lipase 18 U/L (13-60); Magnesium 1.9 mg/dL (1.7-2.3); Osmolality Calculated 295 mOsm/kg (285-295); Potassium 3.7 mmol/L (3.5-5.1); Sodium 141 mmol/L (136-145); Total Bilirubin 0.4 mg/dL (0.15-1.2)
--- NOTE | 2024-04-06 16:28 | CTR_ITS ---
PROCEDURE INFORMATION: Exam: CT Abdomen And Pelvis Without Contrast Exam date and time: 04/06/2024 4:37 PM Age: 84 years old Clinical indication: Nausea and vomiting; Abdominal pain; Generalized; Prior surgery; Surgery date: 6+ months; Surgery type: Prostate TECHNIQUE: Imaging protocol: Computed tomography of the abdomen and pelvis without contrast. Radiation optimization: All CT scans at this facility use at least one of these dose optimization techniques: automated exposure control; mA and/or kV adjustment per patient size (includes targeted exams where dose is matched to clinical indication); or iterative reconstruction. COMPARISON: CT abdomen pelvis wo con [id number] 02/14/2020 5:34 PM RADIATION DOSE METRICS: Total DLP (mGy-cm): 746.51 FINDINGS: Lungs: There is subsegmental atelectasis in the lung bases. There are calcified granulomas in the lower lobes. Liver: The liver is normal. Gallbladder and bile ducts: The gallbladder is absent. There is no intrahepatic or extrahepatic bile duct dilation. Pancreas: There is moderate atrophy of the pancreas. Spleen: Splenic size is normal. There are scattered calcifications consistent with healed granulomas. Adrenal glands: The adrenal glands are unremarkable. Kidneys and ureters: There is mild atrophy of both kidneys. There is no hydronephrosis or stones. Stomach and bowel: The colon is mildly distended and diffusely fluid and gas filled above the sigmoid. Sigmoid and rectum contain stool and are less distended than the remainder of the colon. There is no colonic wall thickening or other evidence of inflammation. The stomach is decompressed, preventing meaningful evaluation of wall thickness. The small bowel is nondilated. Appendix: The appendix is normal. Intraperitoneal space: There is no free air or significant intraperitoneal free fluid. Vasculature: There is mild aortic atherosclerotic disease. Lymph nodes: There is no lymphadenopathy in the retroperitoneum, mesentery, pelvis or inguinal regions. Urinary bladder: The urinary bladder is unremarkable. Reproductive: There are brachytherapy seeds in the prostate. Seminal vesicles are unremarkable. Prostate is mildly enlarged. Bones/joints: There is moderate degenerative disease in the lumbar spine. There is moderate degenerative disease of both hips. The bony pelvis is intact. No suspicious bone lesions. Soft tissues: There is a small fat containing right inguinal hernia. CT/CT abdomen pelvis wo con [id number] IMPRESSION: 1. Mildly distended fluid-filled colon suggests a diarrheal illness. No sign of colonic inflammation or obstruction. 2. Incidental findings above.
[2024-04-06 17:50] VITALS: PULSE 73; O2SAT 95
[2024-04-06 18:18] VITALS: RESP 18; O2SAT 96
[2024-04-06 18:21] LABS: Glucose Urine UA Norm (Normal); Ketones Urine Negative (Negative); Protein Urine Trace (Negative); Specific Gravity, Urine 1.025 (1.005-1.030); Urine Appearance Clear (CLEAR); Urine Color Yellow (Yellow); pH Urine 5 (5-7)
[2024-04-06 18:22] LABS: Add Urine Culture? Yes; Add Urine Microscopic? YES; Bacteria Urine TRACE /hpf; Bilirubin Urine 1+ (Negative); Blood Urine 3+ (Negative); Hyaline Casts Urine 0-4 /lpf; Leukocyte Esterase Urine Negative (Negative); Mucus Urine 1+ /hpf; Nitrate Urine Negative (Negative); RBC Urine 15-25 /hpf (0-2); Squamous Epithelial Cell Urine 0-4 /hpf (0-5); Urobilinogen Urine Neg (Negative); WBC Urine 0-4 /hpf (0-5)
== END 2024-04-06 18:46 | disposition home or self-care (01) ==
PROVIDERS: Family Medicine; Emergency Provider Emergency Medicine; PCP Family Medicine
DX: R11.2 Nausea with vomiting, unspecified (principal)
CPT/HCPCS: 74176; 80053; 81001; 83690; 83735; 85025; 87086; 99284

== ENCOUNTER 2024-05-01 15:06 | Outpatient (CLI) | payer OTHER, SELFPAY ==
[2024-05-01 15:37] LABS: Add Urine Microscopic? NO; Charge for UA Resulting for Rev
[2024-05-01 15:45] LABS: Bilirubin Urine Neg (Negative); Blood Urine Neg (Negative); Glucose Urine UA Norm (Normal); Ketones Urine 1+ (Negative); Leukocyte Esterase Urine Negative (Negative); Nitrate Urine Negative (Negative); Protein Urine Neg (Negative); Specific Gravity, Urine 1.025 (1.005-1.030); Urine Appearance Clear (CLEAR); Urine Color Yellow (Yellow); Urobilinogen Urine 1 mg/dL (Negative); pH Urine 5 (5-7)
== END 2024-05-01 15:07 | disposition home or self-care (01) ==
LOC: LAB 15:09
PROVIDERS: PCP Family Medicine; Visit Provider Family Medicine
DX: N39.0 Urinary tract infection, site not specified (principal)
CPT/HCPCS: 81003

== ENCOUNTER 2024-05-23 22:44 | Emergency (ER) | payer OTHER, MEDICARE, SELFPAY ==
[2024-05-23 22:51] VITALS: BP 221/99; PULSE 69; RESP 15; TEMP 36.8; O2SAT 96
--- NOTE | 2024-05-23 23:00 | CTR_ITS ---
PROCEDURE INFORMATION: Exam: CT Head Without Contrast Exam date and time: 05/23/2024 11:21 PM Age: 84 years old Clinical indication: Injury or trauma; Fall; Other: Pain; Additional info: Fall trauma TECHNIQUE: Imaging protocol: Computed tomography of the head without contrast. Radiation optimization: All CT scans at this facility use at least one of these dose optimization techniques: automated exposure control; mA and/or kV adjustment per patient size (includes targeted exams where dose is matched to clinical indication); or iterative reconstruction. COMPARISON: CT head wo con* [id number] 03/02/2024 5:44 PM RADIATION DOSE METRICS: Total DLP (mGy-cm): 1089.7 FINDINGS: Brain: No evidence for acute intracranial hemorrhage, mass effect, or acute infarct by CT. [id number] generalized cerebral atrophy. Mild-moderate presumed chronic small-vessel ischemic changes in the cerebral white matter. Small chronic infarct posterior left cerebellum. Cerebral ventricles: Stable mild prominence of the lateral and 3rd ventricles compatible with atrophy. Paranasal sinuses: Visualized sinuses are unremarkable. No fluid levels. Mastoid air cells: Visualized mastoid air cells are well aerated. Bones: Unremarkable. No acute fracture. Soft tissues: Unremarkable. Vasculature: Calcific changes in both carotid siphons and in both intracranial vertebral arteries. CT/CT head wo con* [id number] IMPRESSION: No acute intracranial abnormality.
--- NOTE | 2024-05-23 23:04 | W.ED.FALL ---
HPI - Fall General: Chief Complaint: Fall Stated Complaint: fell hit head dent in head Time Seen by Provider: 05/23/24 22:57 History of Present Illness: Patient presents to the ER with his daughter at bedside. Patient had a mechanical fall where he fell into the wall and into the wall with his head. Daughter states patient has been acting like his normal self she just wants to make for sure that he does not have a skull fracture or bleed, patient does not take any blood thinners patient denies any loss of consciousness or pain at this time. 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 Tamia Foley. Bilateral L3-L4 hemilaminotomy/foraminotomy, with limited discectomy. Bilateral L2-L3 laminotomy/foraminotomy. S/P tonsillectomy and adenoidectomy S/P cataract extraction BILATERAL S/P cholecystectomy S/P shoulder surgery H/O elbow surgery Family History Grandmother CAD (coronary artery disease) Cancer Myocardial infarct Family/Other Hypertension Mother , at age 95 No problems noted. Father , at age 39 Blood clot associated with vein wall inflammation Social History Smoking and tobacco/nicotine status: never used tobacco/nicotine Alcohol intake: never Substance/Drug Use: never Household members: family and children Marital status: / Current occupational status: retired Physical Exam Const: COMMON NORMALS: no acute distress, average body habitus, patient oriented x3, no limitations, healthy appearing, alert and well nourished HENMT: COMMON NORMALS: normocephalic, atraumatic, hearing grossly normal bilaterally, external ears normal, Normal external nose present and moist oral mucous membranes HEAD & SCALP: normocephalic and atraumatic NOSE: Normal external nose present EXTERNAL EAR: Yes external ears normal Eye: COMMON NORMALS: Equal, round and reactive pupils present, EOMs intact bilaterally, conjunctivae normal and no scleral icterus CONJUNCTIVA: Yes conjunctivae normal PUPIL: Yes Equal, round and reactive pupils present Neck/C-Spine: COMMON NORMALS: full ROM, no lymphadenopathy, supple, no meningeal signs and no JVD Chest: COMMONS NORMALS: normal inspection of the chest and normal palpation of entire chest wall Resp: COMMON NORMALS: normal respiratory effort, No retractions, No use of accessory muscles and clear to auscultation bilaterally AUSCULTATION: clear to auscultation bilaterally Cardio: COMMON NORMALS: no JVD, regular rate, regular rhythm, S1 normal heart sound present, S2 normal heart sound present, No gallops present (Cardio), No clicks present (Cardio), No murmurs present (Cardio) and No rub (Cardio) RATE: regular rate RHYTHM: regular rhythm HEART SOUNDS: S1 normal heart sound present and S2 normal heart sound present GI: COMMON NORMALS: Normal to inspection, nondistended, normoactive bowel sounds present, Soft to palpation, non-tender, No hepatosplenomegaly present and no masses PALPATION: Yes Soft to palpation and Yes No hepatosplenomegaly present Neuro: COMMON NORMALS: patient oriented x3 SENSORIUM/ORIENTATION: Yes alert MENINGEAL SIGNS: Yes no meningeal signs Course Vital Signs: Vital signs: Vital Signs Temperature 98.3 F 05/23/24 22:51 Pulse Rate 68 05/24/24 01:02 Respiratory Rate 18 05/24/24 01:02 Blood Pressure 171/68 05/24/24 01:02 Pulse Oximetry 95 05/24/24 01:02 Oxygen Delivery Me thod Room Air 05/24/24 00:00 MDM - Fall Medical Decision Making Patient CT scan done of his head without contrast acute no acute intracranial abnormality, patient also had high blood pressure during his stay here he was given 0.2 mg clonidine p.o. and 20 mg of hydralazine IM. This improved his blood pressure down to 171/68, these results was discussed with him and his daughter. Patient be discharged home. Differential Diagnosis Unlikely syncope, dislocation of shoulder region, fracture of wrist, compression fracture, concussion with loss of consciousness or concussion without loss of consciousness Medical Records I reviewed the patient's medical records. Lab Data I reviewed the patient's lab results. Radiology Impressions Head CT 05/23/24 23:00 IMPRESSION: No acute intracranial abnormality. All radiology interpretation(s) finalized by discharge Discharge Plan Discharge Patient Disposition: Home Clinical Impression: Fall, Hypertension, Contusion of scalp Condition: Stable Prescriptions: No Action nitroglycerin 0.4 mg tablet, sublingual 0.4 mg sublingual Q5M PRN (Reason: chest pain) Qty: 25 3RF Rx Instructions: do not exceed 3 doses per episode ondansetron 4 mg tablet,disintegrating 4 mg PO Q8H PRN (Reason: Nausea And Vomiting) midodrine 5 mg tablet 5 mg PO TID Qty: 90 4RF Rx Instructions: do not give last dose of day after 6PM or within 4 hrs of bedtime Myrbetriq 25 mg tablet extended release 24 hr 25 mg PO DAILY Qty: 90 3RF cholecalciferol (vitamin D3) [Vitamin D3] 25 mcg (1,000 unit) Tablet 75 mcg PO QAM isosorbide mononitrate 30 mg tablet extended release 24 hr 15 mg PO QPM aspirin 81 mg Tablet,Delayed Release (Dr/Ec) 81 mg PO QAM famotidine [Pepcid] 20 mg Tablet 20 mg PO BID PRN (Reason: Heartburn) pantoprazole 40 mg tablet,delayed release (DR/EC) 40 mg PO DAILY@12 Artificial Tears (polyvin alc) 1.4 % Drops 2 drp OPHTHALMIC (EYE) QID PRN (Reason: Dry Eye(S)) carbidopa-levodopa 25-100 mg tablet 0.5 tab PO BID Rx Instructions: NOON AND 4 PM coenzyme Q10 100 mg Capsule 100 mg PO DAILY Fish Oil 1,000 mg (120 mg-180 mg) Capsule 1 cap PO BID Celexa 40 mg tablet 20 mg PO DAILY carbidopa-levodopa 25-100 mg tablet 1 tab PO QAM ondansetron 4 mg tablet,disintegrating 4 mg PO Q6H PRN (Reason: nausea and vomiting) Qty: 14 0RF Discharge Orders: Discharge ED (Routine); Ordered 05/24/24 Ordered By: Shakeel Carmona Referrals: Minnie Coello MD [Primary Care Provider] - 1 week Patient Instructions: Hypertension, Scalp Contusion in Adults (ED) Activity Restrictions/Additional Instructions: A CT scan of your head was performed and the read by the radiologist as negative for acute intracranial abnormality, he did have fairly high blood pressure and you are given clonidine 0.2 mg by mouth as well as 20 mg of hydralazine IM. He is lower your blood pressure. Please keep a check on your blood pressure at least once or twice a day and keep a log and take it to your family practice physician for follow-up within the next 7 to 10 days. Coding Level of Care Code ED Label Stamper for Krystyna Antony
[2024-05-23 23:34] VITALS: BP 211/89; PULSE 65; O2SAT 94
[2024-05-23] MEDS: cloNIDine 0.1 mg Tablet 0.2 MG PO (23:36)
[2024-05-24] VITALS: BP 192/99; PULSE 64; RESP 15; O2SAT 93
[2024-05-24 00:33] VITALS: BP 214/100; PULSE 67; RESP 16; O2SAT 94
[2024-05-24] MEDS: hyDRALAzine 20 mg/mL INJ 1 mL IM (00:45)
[2024-05-24 01:02] VITALS: BP 171/68; PULSE 68; RESP 18; O2SAT 95
[2024-05-24 01:28] VITALS: BP 171/68; PULSE 68; RESP 18; TEMP 36.8; O2SAT 95
== END 2024-05-24 01:29 | disposition home or self-care (01) ==
PROVIDERS: Emergency Provider Emergency Medicine; PCP Family Medicine
DX: S00.03XA Contusion of scalp, initial encounter (principal); I10 Essential (primary) hypertension; Z79.82 Long term (current) use of aspirin; I25.10 Atherosclerotic heart disease of native coronary artery without angina pectoris; I25.2 Old myocardial infarction; G20.A1 Parkinson's disease without dyskinesia, without mention of fluctuations; F02.80 Dementia in other diseases classified elsewhere, unspecified severity, without behavioral disturbance, psychotic disturbance, mood disturbance, and anxiety; Z85.46 Personal history of malignant neoplasm of prostate; Z92.3 Personal history of irradiation
CPT/HCPCS: 70450; 96372; 99284; J0360

== ENCOUNTER → 2024-07-11 08:45 | Outpatient (BNVA) | payer OTHER, SELFPAY | PROVIDERS: PCP Family Medicine; Visit Provider Specialist | DX: G20.A1 Parkinson's disease without dyskinesia, without mention of fluctuations (principal); G31.83 Neurocognitive disorder with Lewy bodies; F02.C3 Dementia in other diseases classified elsewhere, severe, with mood disturbance | CPT/HCPCS: 99214 ==

== ENCOUNTER 2024-07-24 10:31 | Outpatient (CLI) | payer MEDICARE, SELFPAY ==
[2024-07-24 10:39] LABS: Charge for UA Resulting for Rev
[2024-07-24 10:47] LABS: Bilirubin Urine Negative (Negative); Blood Urine 1+ (Negative); Glucose Urine UA Negative (Normal); Ketones Urine Negative (Negative); Leukocyte Esterase Urine 2+ (Negative); Nitrate Urine Positive (Negative); Protein Urine Negative (Negative); Specific Gravity, Urine 1.008 (1.005-1.030); Urine Appearance Clear (CLEAR); Urine Color Yellow (Yellow); pH Urine 7.5 (5-7)
[2024-07-24 10:54] LABS: UA Manual Slide Review YES; UA Slide Review UA Slide Review Perf
[2024-07-24 10:56] LABS: Add Urine Culture? No; Bacteria Urine 2+ /hpf; Mucus Urine TRACE /hpf; RBC Urine 0-4 /hpf (0-2); WBC Urine 15-25 /hpf (0-5)
== END 2024-07-24 10:32 | disposition home or self-care (01) ==
PROVIDERS: PCP Family Medicine; Visit Provider Family Medicine
DX: N39.0 Urinary tract infection, site not specified (principal)
CPT/HCPCS: 81003; 81015; 87077; 87086; 87186

== ENCOUNTER 2024-09-10 09:39 | Outpatient (CLI) | payer MEDICARE, OTHER, SELFPAY ==
[2024-09-10 09:57] LABS: Bilirubin Urine Negative (Negative); Blood Urine Negative (Negative); Glucose Urine UA Negative (Normal); Ketones Urine Trace (Negative); Leukocyte Esterase Urine Trace (Negative); Nitrate Urine Positive (Negative); Protein Urine Negative (Negative); Specific Gravity, Urine 1.024 (1.005-1.030); Urine Appearance Clear (CLEAR); Urine Color Yellow (Yellow)
[2024-09-10 10:00] LABS: Add Urine Microscopic? YES; Bacteria Urine 4+ /hpf; RBC Urine 0-2 /hpf (0-2); Squamous Epithelial Cell Urine 0-5 /hpf (0-5)
== END 2024-09-10 09:40 | disposition home or self-care (01) ==
PROVIDERS: PCP Family Medicine; Visit Provider Family Medicine
DX: N39.0 Urinary tract infection, site not specified (principal)
CPT/HCPCS: 81001; 87077; 87086; 87186

== ENCOUNTER 2024-09-12 11:51 | Emergency (ER) | payer OTHER, MEDICARE, SELFPAY ==
[2024-09-12 12:06] VITALS: BP 191/96; PULSE 66; RESP 16; TEMP 36.6; O2SAT 96
--- NOTE | 2024-09-12 12:23 | US_ITS ---
WS: [id number] TESTICULAR ULTRASOUND HISTORY: testicular injury COMPARISON: None available. TECHNIQUE: Real-time and color Doppler imaging or utilized to perform a testicular ultrasound. Right testicle: 3.6 cm x 2.4 cm x 2.5 cm. Normal size and echogenicity. No mass or torsion. Normal color Doppler is present throughout. Systolic and diastolic velocities are both present. No significant hydrocele. Right epididymis: Normal epididymis with no increased vascularity. Left testicle: 3.6 cm x 1.9 cm x 2.4 cm. Normal size and echogenicity. No mass or torsion. Small area of decreased echogenicity within the RIG HT testicle with some shadowing. There may be associated calcification or this may be a vessel. No in creased vascularity. No mass. Normal color Doppler is present throughout. Systolic and diastolic velocities are both present. Small simple hydrocele. Left epididymis: Small spermatoceles. US/US scrotum [id number] IMPRESSION: 1. No testicular mass or torsion. 2. No testicular fracture or intratesticular hematoma.
--- NOTE | 2024-09-12 12:37 | W.ED.GENADLT ---
HPI - General Adult General: Chief complaint: General Medical Stated complaint: Testicle check Time Seen by Provider: 09/12/24 12:20 History of Present Illness: 84-year-old man who presents emergency room by ambulance. He was sitting on a shower chair and apparently his scrotum became caught and it took 45 minutes for staff to get him out of the chair. He currently is not complaining of any testicular pain. No altered mental status. No focal motor deficits. Related Data Home Medications Medication Instructions Recorded Confirmed cholecalciferol (vitamin D3) 25 75 mcg PO QAM 03/07/21 07/11/24 mcg (1,000 unit) tablet (Vitamin D3) aspirin 81 mg tablet,delayed 81 mg PO QAM 06/30/22 07/11/24 release isosorbide mononitrate 30 mg 15 mg PO QPM 06/30/22 07/11/24 tablet,extended release 24 hr famotidine 20 mg tablet (Pepcid) 20 mg PO BID PRN Heartburn 03/28/23 07/11/24 pantoprazole 40 mg tablet,delayed 40 mg PO DAILY@12 03/28/23 07/11/24 release ondansetron 4 mg disintegrating 4 mg PO Q8H PRN Nausea And Vomiting 04/19/23 07/11/24 tablet carbidopa 25 mg-levodopa 100 mg 0.5 tab PO BID 04/06/24 07/11/24 tablet carbidopa 25 mg-levodopa 100 mg 1 tab PO QAM 04/06/24 07/11/24 tablet coenzyme Q10 100 mg capsule 100 mg PO DAILY 04/06/24 07/11/24 omega 4-evj-mmp-fish oil 1,000 mg 1 cap PO BID 04/06/24 07/11/24 (120 mg-180 mg) capsule (Fish Oil) polyvinyl alcohol 1.4 % eye drops 2 drp ophthalmic (eye) QID PRN Dry 04/06/24 07/11/24 (Artificial Tears (polyvinyl Eye(S) alcohol)) Previous Rx's Medication Instructions Recorded nitroglycerin 0.4 mg sublingual 0.4 mg sublingual Q5M PRN chest 02/15/22 tablet pain #25 tabs midodrine 5 mg tablet 5 mg PO TID #90 tabs 10/10/23 mirabegron 25 mg tablet,extended 25 mg PO DAILY #90 tabs 03/15/24 release 24 hr (Myrbetriq) ondansetron 4 mg disintegrating 4 mg PO Q6H PRN nausea and 04/06/24 tablet vomiting #14 tabs quetiapine 25 mg tablet (Seroquel) 25 mg PO BID #180 tabs 07/11/24 citalopram 40 mg tablet (Celexa) 20 mg (1/2 x 40 mg) PO DAILY 30 08/13/24 days #90 tabs Allergies Allergy/AdvReac Type Severity Reaction Status Date / Time hydrocodone Allergy HALLUCINATI Verified 07/11/24 09:43 ONS ropinirole Allergy ADR-Halluci Verified 07/11/24 09:43 nating rosuvastatin Allergy ADR-Muscle Verified 07/11/24 09:43 Pain zonisamide [From Zonegran] Allergy HIVES Verified 07/11/24 09:43 metoprolol AdvReac BRADYCARDIA Verified 07/11/24 09:43 Penicillins AdvReac UNKNOWN Verified 07/11/24 09:43 pravastatin AdvReac MUSCLE PAIN Verified 07/11/24 09:43 Review of Systems Narrative: Constitutional symptoms: Negative except as documented in HPI. Skin symptoms: Negative except as documented in HPI. Eye symptoms: Negative except as documented in HPI. ENMT symptoms: Negative except as documented in HPI. Respiratory symptoms: Negative except as documented in HPI. Cardiovascular symptoms: Negative except as documented in HPI. Gastrointestinal symptoms: Negative except as documented in HPI. Genitourinary symptoms: Negative except as documented in HPI. Musculoskeletal symptoms: Negative except as documented in HPI. Neurologic symptoms: Negative except as documented in HPI. Psychiatric symptoms: Negative except as documented in HPI. Endocrine symptoms: Negative except as documented in HPI. 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 Tamia Foley. Bilateral L3-L4 hemilaminotomy/foraminotomy, with limited discectomy. Bilateral L2-L3 laminotomy/foraminotomy. S/P tonsillectomy and adenoidectomy S/P cataract extraction BILATERAL S/P cholecystectomy S/P shoulder surgery H/O elbow surgery Family History Grandmother CAD (coronary artery disease) Cancer Myocardial infarct Family/Other Hypertension Mother , at age 95 No problems noted. Father , at age 39 Blood clot associated with vein wall inflammation Social History Smoking and tobacco/nicotine status: never used tobacco/nicotine Alcohol intake: never Substance/Drug Use: never Household members: family and children Marital status: / Current occupational status: retired Physical Exam Narrative: EXAM NARRATIVE: General: Alert, no acute distress. Skin: Warm, dry. Head: Normocephalic, atraumatic. Neck: Supple, trachea midline. Eye: Extraocular movements are intact. Ears, nose, mouth and throat: mucosa moist. Cardiovascular: Regular, Normal peripheral perfusion. Respiratory: Lungs are clear to auscultation, respirations are non-labored, breath sounds are equal, Symmetrical chest wall expansion. Gastrointestinal: Soft, Nontender, Non distended Genitourinary: Normal penis normal scrotum. Musculoskeletal: Normal ROM, no deformity. Neurological: Alert and oriented, No focal neurological deficit observed. Psychiatric: Cooperative, appropriate mood & affect. Course Vital Signs: Vital signs: Vital Signs Temperature 97.8 F 09/12/24 12:06 Pulse Rate 66 09/12/24 12:06 Respiratory Rate 16 09/12/24 12:06 Blood Pressure 191/96 09/12/24 12:06 Pulse Oximetry 96 09/12/24 12:06 Oxygen Delivery Me thod Room Air 09/12/24 12:06 [facility] - General Adult Medical Decision Making Ultrasound of the scrotum and testicles shows no acute injuries. This was reviewed and interpreted by myself the emergency room physician. I also reviewed the radiology report. Assessment and plan: Testicular injury - Discharged home - Discussed plan with patient and family. Answered any questions. - Evaluation and treatment of this problem were appropriate in the emergency setting. Lab Data Radiology Impressions Scrotum Ultrasound 09/12/24 12:23 IMPRESSION: 1. No testicular mass or torsion. 2. No testicular fracture or intratesticular hematoma. All radiology interpretation(s) finalized by discharge Discharge Plan Discharge Patient Disposition: Home Clinical Impression: Testicular injury Condition: Stable Prescriptions: No Action nitroglycerin 0.4 mg tablet, sublingual 0.4 mg sublingual Q5M PRN (Reason: chest pain) Qty: 25 3RF Rx Instructions: do not exceed 3 doses per episode ondansetron 4 mg tablet,disintegrating 4 mg PO Q8H PRN (Reason: Nausea And Vomiting) midodrine 5 mg tablet 5 mg PO TID Qty: 90 4RF Rx Instructions: do not give last dose of day after 6PM or within 4 hrs of bedtime quetiapine [Seroquel] 25 mg tablet 25 mg PO BID Qty: 180 3RF Rx Instructions: take 1-2 at night to sleep/ prevent hallucinations Myrbetriq 25 mg tablet extended release 24 hr 25 mg PO DAILY Qty: 90 3RF Celexa 40 mg tablet 20 mg PO DAILY 30 Days Qty: 90 5RF cholecalciferol (vitamin D3) [Vitamin D3] 25 mcg (1,000 unit) Tablet 75 mcg PO QAM isosorbide mononitrate 30 mg tablet extended release 24 hr 15 mg PO QPM aspirin 81 mg Tablet,Delayed Release (Dr/Ec) 81 mg PO QAM famotidine [Pepcid] 20 mg Tablet 20 mg PO BID PRN (Reason: Heartburn) pantoprazole 40 mg tablet,delayed release (DR/EC) 40 mg PO DAILY@12 Artificial Tears (polyvin alc) 1.4 % Drops 2 drp OPHTHALMIC (EYE) QID PRN (Reason: Dry Eye(S)) carbidopa-levodopa 25-100 mg tablet 0.5 tab PO BID Rx Instructions: NOON AND 4 PM coenzyme Q10 100 mg Capsule 100 mg PO DAILY Fish Oil 1,000 mg (120 mg-180 mg) Capsule 1 cap PO BID carbidopa-levodopa 25-100 mg tablet 1 tab PO QAM ondansetron 4 mg tablet,disintegrating 4 mg PO Q6H PRN (Reason: nausea and vomiting) Qty: 14 0RF Discharge Orders: Discharge ED (Routine); Ordered 09/12/24 Ordered By: Charlene Corbin Referrals: Minnie Coello MD [Primary Care Provider] - Discharge Diet: Usual diet Discharge Activity: Increase activity as tolerated Activity Restrictions/Additional Instructions: Thank you for choosing [facility] for your healthcare needs today. Please realize this is an emergency room and that we are providing you with a medical screening exam and this may not be complete and all inclusive of all the testing and or work up that you may need to determine your ailment or severity of your illness. You have been screened and evaluated and felt safe for discharge. Health conditions do change or evolve sometimes and as such it is important that you follow up with your Primary Doctor to be re checked, 3-5 days is a general good time frame for follow up. You are always welcome to return to the ED for re assessment if your symptoms are worsening or you have new concerns Coding Level of Care Code ED Table Games Shift Manager for Krystyna Antony
[2024-09-12 14:51] VITALS: BP 180/78; PULSE 71; O2SAT 98
== END 2024-09-12 14:53 | disposition home or self-care (01) ==
PROVIDERS: Emergency Provider Emergency Medicine; PCP Family Medicine
DX: S39.94XA Unspecified injury of external genitals, initial encounter (principal); W23.0XXA Caught, crushed, jammed, or pinched between moving objects, initial encounter
CPT/HCPCS: 76870; 99284

== ENCOUNTER 2024-09-28 10:17 | Emergency (ER) | payer OTHER, MEDICARE, SELFPAY ==
--- NOTE | 2024-09-28 10:24 | XR_ITS ---
WS: [id number] XR chest 1V portable [id number] REASON FOR EXAM: dyspnea/cough FINDINGS: Moderate tortuosity of the thoracic aorta with normal heart size. Calcified granulomas disease bilaterally with large calcified node on the right. Compared to the most recent examination of 03/02/2024, there are linear opacities in the right lower l lalito most compatible with atelectasis. No other significant interval change. No delete that. Findings for pulmonary edema or pneumonitis. XR/XR chest 1V portable [id number] IMPRESSION: Presumed areas of atelectasis in the right lower lung with no other interval ch abby compared to the previous examination of 03/02/2024.
[2024-09-28 10:58] VITALS: BP 189/91; PULSE 69; RESP 18; TEMP 36.8; O2SAT 99
--- NOTE | 2024-09-28 11:00 | ECG_ITS ---
[facility] Test Date: 2024-09-28 Pat Name: Renny Matos Department: Room: Gender: Male Clinical Program Director: : 1940 Requested By: Bright Mcclelland Order Number: [id number] Edna MD: Rancho Maurer M.D. Measurements Intervals [place] Rate: 68 P: 87 HI: 173 QRS: -30 QRSD: 128 T: 16 QT: 442 QTc: 472 Interpretive Statements SINUS RHYTHM RIGHT BUNDLE BRANCH BLOCK PROBABLE SEPTAL MYOCARDIAL INFARCTION , PROBABLY OLD Compared to ECG 03/22/2024 21:41:57 Left-axis deviation no longer present Myocardial infarct finding still present Electronically Signed On 09-28-2024 18:11:29 MACHINE [employer] APPRENTICE by Rancho Maruer M.D. [email or web address]
--- NOTE | 2024-09-28 11:00 | W.ED.GENADLT ---
HPI - General Adult General: Chief complaint: Weakness Stated complaint: fall, sore on chest and rib Time Seen by Provider: 09/28/24 10:22 History of Present Illness: 84-year-old male presents emergency room seizures he has multiple falls last couple of weeks. He has some mild dementia and Parkinson's he is on hospice he fell on a portion of his walker and hit the end of the handle in the right lower ribs she has been very tender over that he been using some lidocaine patches. He had recently been treated for a bladder infection family is concerned he may have a recurrence. No reported fever. Did not strike his head no loss consciousness. Associated symptoms: Deny chest pain, dyspnea or rash Related Data Home Medications Medication Instructions Recorded Confirmed cholecalciferol (vitamin D3) 25 75 mcg PO QAM 03/07/21 09/28/24 mcg (1,000 unit) tablet (Vitamin D3) aspirin 81 mg tablet,delayed 81 mg PO QAM 06/30/22 09/28/24 release isosorbide mononitrate 30 mg 15 mg PO QPM 06/30/22 09/28/24 tablet,extended release 24 hr famotidine 20 mg tablet (Pepcid) 20 mg PO BID PRN Heartburn 03/28/23 09/28/24 pantoprazole 40 mg tablet,delayed 40 mg PO DAILY@12 03/28/23 09/28/24 release carbidopa 25 mg-levodopa 100 mg 0.5 tab PO BID 04/06/24 09/28/24 tablet coenzyme Q10 100 mg capsule 100 mg PO DAILY 04/06/24 09/28/24 omega 2-uor-rhl-fish oil 1,000 mg 1 cap PO BID 04/06/24 09/28/24 (120 mg-180 mg) capsule (Fish Oil) polyvinyl alcohol 1.4 % eye drops 2 drp ophthalmic (eye) QID PRN Dry 04/06/24 09/28/24 (Artificial Tears (polyvinyl Eye(S) alcohol)) Previous Rx's Medication Instructions Recorded nitroglycerin 0.4 mg sublingual 0.4 mg sublingual Q5M PRN chest 02/15/22 tablet pain #25 tabs midodrine 5 mg tablet 5 mg PO TID #90 tabs 10/10/23 mirabegron 25 mg tablet,extended 25 mg PO DAILY #90 tabs 03/15/24 release 24 hr (Myrbetriq) ondansetron 4 mg disintegrating 4 mg PO Q6H PRN nausea and 04/06/24 tablet vomiting #14 tabs quetiapine 25 mg tablet (Seroquel) 25 mg PO BID #180 tabs 07/11/24 citalopram 40 mg tablet (Celexa) 20 mg (1/2 x 40 mg) PO DAILY 30 08/13/24 days #90 tabs cefdinir 300 mg capsule 300 mg PO BID 5 days #10 caps 09/28/24 diclofenac sodium 1 % topical gel 4 g topical QID #100 grams 09/28/24 (Arthritis Pain (diclofenac)) tramadol 50 mg tablet 50 mg PO Q8H PRN pain #10 tabs 09/28/24 Allergies Allergy/AdvReac Type Severity Reaction Status Date / Time hydrocodone Allergy HALLUCINATI Verified 09/13/24 10:17 ONS ropinirole Allergy ADR-Halluci Verified 09/13/24 10:17 nating rosuvastatin Allergy ADR-Muscle Verified 09/13/24 10:17 Pain zonisamide [From Zonegran] Allergy HIVES Verified 09/13/24 10:17 metoprolol AdvReac BRADYCARDIA Verified 09/13/24 10:17 Penicillins AdvReac UNKNOWN Verified 09/13/24 10:17 pravastatin AdvReac MUSCLE PAIN Verified 09/13/24 10:17 Review of Systems Const: Denies: fever(s) or chills Card: Denies: chest pain Resp: Denies: dyspnea GI: Denies: abdominal pain : Denies: dysuria, urinary frequency or urinary urgency Musc: Denies: neck pain or back pain Skin/Breast: Denies: rash PFSH ED PFSH: Medical History Sleep apnea Chronic constipation Dementia CAD (coronary artery disease) Hypertensive emergency Non-ST elevation [place] (NSTEMI) 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 Tamia Foley. Bilateral L3-L4 hemilaminotomy/foraminotomy, with limited discectomy. Bilateral L2-L3 laminotomy/foraminotomy. S/P tonsillectomy and adenoidectomy S/P cataract extraction BILATERAL S/P cholecystectomy S/P shoulder surgery H/O elbow surgery Family History Grandmother CAD (coronary artery disease) Cancer Myocardial infarct Family/Other Hypertension Mother , at age 95 No problems noted. Father , at age 39 Blood clot associated with vein wall inflammation Social History Smoking and tobacco/nicotine status: never used tobacco/nicotine Alcohol intake: never Substance/Drug Use: never Household members: family and children Marital status: / Current occupational status: retired Physical Exam Const: GENERAL APPEARANCE: cooperative ORIENTATION/CONSCIOUSNESS: Yes awake, Yes oriented to person, Yes oriented to place and Yes oriented to time HENMT: COMMON NORMALS: normocephalic, atraumatic and hearing grossly normal bilaterally HEAD & SCALP: normocephalic and atraumatic Resp: COMMON NORMALS: normal respiratory effort, No retractions, No use of accessory muscles and clear to auscultation bilaterally AUSCULTATION: clear to auscultation bilaterally Cardio: COMMON NORMALS: regular rate, regular rhythm and No murmurs present (Cardio) RATE: regular rate RHYTHM: regular rhythm GI: COMMON NORMALS: Soft to palpation and No hepatosplenomegaly present AUSCULTATION: Yes normoactive bowel sounds PALPATION: Yes Soft to palpation, No Tenderness to palpation present (GI), No Guarding due to palpation present (GI) and Yes No hepatosplenomegaly present Extremity: COMMON NORMALS: normal to inspection, capillary refill normal, no clubbing, cyanosis or edema, no calf tenderness and no pedal edema Neuro: SENSORIUM/ORIENTATION: Yes oriented to person, Yes oriented to place and Yes oriented to time Skin: COMMON NORMALS: no rashes or lesions noted GENERAL SKIN EXAM: no rashes or lesions noted Course Vital Signs: Vital signs: Vital Signs Temperature 98.2 F 09/28/24 10:58 Pulse Rate 67 09/28/24 14:14 Respiratory Rate 18 09/28/24 10:58 Blood Pressure 174/104 09/28/24 14:14 Pulse Oximetry 95 09/28/24 14:14 Oxygen Delivery Me thod Room Air 09/28/24 11:35 MDM - General Adult Medical Decision Making X-ray shows what appears to be close rib fracture nondisplaced. He does have some underlying atelectasis. He also has some mild cystitis although his overall white count is normal. All of the use topical diclofenac continue the lidocaine we can additionally use some occasional tramadol at night to help her sleep although the family is a little cautious because they are concerned about more falls which is a legitimate concern advised him probably only to use it at night and if he is still trying to get a bed out at night they may need to avoid it completely. Finally for cystitis we will start him on cefdinir his last 2 urine culture showed sensitive E. coli. Reviewed with the family discharged home Medical Records I reviewed the patient's medical records. Lab Data I reviewed the patient's lab results. 09/28/24 11:12 09/28/24 11:12 Radiology Impressions Chest X-Ray 09/28/24 10:24 IMPRESSION: Presumed areas of atelectasis in the right lower lung with no other interval change compared to the previous examination of 03/02/2024. Ribs X-Ray 09/28/24 11:19 IMPRESSION: Blunting of the right costophrenic angle with presumed atelectatic areas in the right lung. Subtle rib deformities which likely represent nondisplaced posterolateral rib fractures as above. Laboratory Results WBC 7.84 10^3/uL (3.29-11.43) 09/28/24 11:12 RBC 3.90 10^6/uL (3.85-5.65) 09/28/24 11:12 Hgb 12.70 g/dL (11.27-16.99) 09/28/24 11:12 Hct 38.0 % (37-53) 09/28/24 11:12 MCV 97.4 fl (82-101) 09/28/24 11:12 MCH 32.6 pg (27-33) 09/28/24 11:12 MCHC 33.4 g/dL (30-55) 09/28/24 11:12 RDW 12.8 % (12.1-15.1) 09/28/24 11:12 Plt Count 196 10^3/cmm (157-399) 09/28/24 11:12 MPV 9.6 fL (7.4-10.4) 09/28/24 11:12 Neut % (Auto) 71.5 % 09/28/24 11:12 Lymph % (Auto) 16.5 % 09/28/24 11:12 [place] % (Auto) 8.7 % 09/28/24 11:12 Eos % (Auto) 2.4 % 09/28/24 11:12 Baso % (Auto) 0.5 % 09/28/24 11:12 Neut # (Auto) 5.61 10^3/uL (1.8-7.7) 09/28/24 11:12 Lymph # (Auto) 1.3 10^3/uL (0.8-4.8) 09/28/24 11:12 [place] # (Auto) 0.7 10^3/uL (0.2-0.9) 09/28/24 11:12 Eos # (Auto) 0.2 10^3/uL (0.0-0.8) 09/28/24 11:12 Baso # (Auto) 0.0 10^3/uL (0.0-0.1) 09/28/24 11:12 Nucleated RBC % (auto) 0 % 09/28/24 11:12 Nucleated RBCs # 0.0 /100WBC 09/28/24 11:12 Sodium 138 mmol/L (136-145) 09/28/24 11:12 Potassium 4.1 mmol/L (3.5-5.1) 09/28/24 11:12 Chloride 104 mmol/L (98-107) 09/28/24 11:12 Carbon Dioxide 22 mmol/L (22-29) 09/28/24 11:12 Anion Gap 16.1 (5-19) 09/28/24 11:12 BUN 15 mg/dL (8-23) 09/28/24 11:12 Creatinine 0.7 mg/dL (0.7-1.2) 09/28/24 11:12 GFR Calculation Not Reportable 09/28/24 11:12 Glucose 96 mg/dL (65-115) 09/28/24 11:12 Calculated Osmolality 287 mOsm/kg (285-295) 09/28/24 11:12 Calcium 8.4 mg/dL (8.5-10.5) L 09/28/24 11:12 Total Bilirubin 0.4 mg/dL (0.15-1.2) 09/28/24 11:12 AST 10 U/L (0-40) 09/28/24 11:12 ALT < 5 U/L (0-41) 09/28/24 11:12 Alkaline Phosphatase 183 U/L (40-130) H 09/28/24 11:12 Total Protein 6.6 g/dL (6.6-8.7) 09/28/24 11:12 Albumin 3.9 g/dL (3.5-5.2) 09/28/24 11:12 Globulin 2.7 g/dL (1.3-4.6) 09/28/24 11:12 Urine Color Yellow (Yellow) 09/28/24 12:39 Urine Appearance Cloudy (CLEAR) A 09/28/24 12:39 Urine pH 5 (5-7) 09/28/24 12:39 Ur Specific [place] 1.025 (1.005-1.030) 09/28/24 12:39 Urine Protein Trace (Negative) 09/28/24 12:39 Urine Glucose (UA) Norm (Normal) 09/28/24 12:39 Urine Ketones Negative (Negative) 09/28/24 12:39 Urine Blood 2+ (Negative) H 09/28/24 12:39 Urine Nitrate Positive (Negative) A 09/28/24 12:39 Urine Bilirubin Neg (Negative) 09/28/24 12:39 Urine Urobilinogen 4 mg/dL (Negative) H 09/28/24 12:39 Ur Leukocyte Esterase Trace (Negative) H 09/28/24 12:39 Urine RBC 11-20 /hpf (0-2) H 09/28/24 12:39 Urine WBC 11-20 /hpf (0-5) H 09/28/24 12:39 Ur Squamous Epith Cells 0-5 /hpf (0-5) 09/28/24 12:39 Amorphous Sediment Not Reportable 09/28/24 12:39 Urine Bacteria 4+ /hpf (NONE) H 09/28/24 12:39 Hyaline Casts 3.30 /lpf 09/28/24 12:39 All radiology interpretation(s) finalized by discharge Discharge Plan Discharge Patient Disposition: Home Clinical Impression: Cystitis, Closed rib fracture Lewy body dementia Qualifiers: Dementia severity: severe Dementia behavioral or psychological symptom: with mood disturbance Qualified Code(s): G31.83 - Neurocognitive disorder with Lewy bodies Condition: Stable Prescriptions: New cefdinir 300 mg capsule 300 mg PO BID 5 Days Qty: 10 0RF diclofenac sodium [Arthritis Pain (diclofenac)] 1 % gel 4 g topical QID Qty: 100 0RF Rx Instructions: apply to single knee, ankle, foot; for foot includes sole/toes/top of foot tramadol 50 mg tablet 50 mg PO Q8H PRN (Reason: pain) Qty: 10 0RF No Action nitroglycerin 0.4 mg tablet, sublingual 0.4 mg sublingual Q5M PRN (Reason: chest pain) Qty: 25 3RF Rx Instructions: do not exceed 3 doses per episode midodrine 5 mg tablet 5 mg PO TID Qty: 90 4RF Rx Instructions: do not give last dose of day after 6PM or within 4 hrs of bedtime quetiapine [Seroquel] 25 mg tablet 25 mg PO BID Qty: 180 3RF Rx Instructions: take 1-2 at night to sleep/ prevent hallucinations Myrbetriq 25 mg tablet extended release 24 hr 25 mg PO DAILY Qty: 90 3RF Celexa 40 mg tablet 20 mg PO DAILY 30 Days Qty: 90 5RF cholecalciferol (vitamin D3) [Vitamin D3] 25 mcg (1,000 unit) Tablet 75 mcg PO QAM isosorbide mononitrate 30 mg tablet extended release 24 hr 15 mg PO QPM aspirin 81 mg Tablet,Delayed Release (Dr/Ec) 81 mg PO QAM famotidine [Pepcid] 20 mg Tablet 20 mg PO BID PRN (Reason: Heartburn) pantoprazole 40 mg tablet,delayed release (DR/EC) 40 mg PO DAILY@12 polyvinyl alcohol [Artificial Tears (polyvin alc)] 1.4 % Drops 2 drp OPHTHALMIC (EYE) QID PRN (Reason: Dry Eye(S)) carbidopa-levodopa 25-100 mg tablet 0.5 tab PO BID Rx Instructions: NOON AND 4 PM coenzyme Q10 100 mg Capsule 100 mg PO DAILY omega 9-nft-his-fish oil [Fish Oil] 1,000 mg (120 mg-180 mg) Capsule 1 cap PO BID ondansetron 4 mg tablet,disintegrating 4 mg PO Q6H PRN (Reason: nausea and vomiting) Qty: 14 0RF Discharge Orders: Discharge ED (Routine); Ordered 09/28/24 Ordered By: Bright Aden Referrals: Minnie Coello MD [Primary Care Provider] - Discharge Diet: Usual diet Discharge Activity: Resume usual activity Patient Instructions: Opioid Safety, Pain Management Activity Restrictions/Additional Instructions: Thank you for choosing [facility] for your healthcare needs today. It is very important that you follow up as instructed or that you return to the Emergency Department should you have concerns or if your condition changes or worsens in any way. You are seen emergency room with complaints of rib pain reviewed following. X-rays show what appears to be a nondisplaced x-ray there is no evidence of pneumonia or injury to the underlying lung. Recommend you continue the topical lidocaine patches we also gave you a topical diclofenac to apply as as needed. Additionally gave tramadol you can use as needed to help with sleep at night would recommend just 1 tablet approximately 30 minutes before bedtime. Finally you are noted to have a mild bladder infection. Based on the 2 most recent urine cultures the antibiotic given should be sufficient to treat we will culture this urine as well. On the previous urine cultures there was no significant resistance to antibiotics. Coding Level of Care Code ED Surveyor'S Assistant for Krystyna Antony
[2024-09-28 11:18] LABS: Basophils % 0.5 %; Eosinophils # 0.2 10^3/uL (0.0-0.8); Eosinophils % 2.4 %; Lymphocytes # 1.3 10^3/uL (0.8-4.8); Lymphocytes % 16.5 %; Mean Corpuscular HGB Conc 33.4 g/dL (30-55); Mean Corpuscular Hemoglobin 32.6 pg (27-33); Mean Corpuscular Volume 97.4 fl (82-101); Mean Platelet Volume 9.6 fL (7.4-10.4); Monocytes # 0.7 10^3/uL (0.2-0.9); Monocytes % 8.7 %; Neutrophils # 5.61 10^3/uL (1.8-7.7); Neutrophils % 71.5 %; Nucleated Red Blood Cells % 0 %; Platelet Count 196 10^3/cmm (157-399); Red Cell Distribution Width 12.8 % (12.1-15.1); White Blood Count 7.84 10^3/uL (3.29-11.43)
--- NOTE | 2024-09-28 11:19 | XR_ITS ---
WS: [id number] XR ribs RT 2V* [id number] REASON FOR EXAM: trauma FINDINGS: No subcutaneous emphysema or pneumothorax. There is some blunting of the costophrenic angle with presumed small areas of linear atelectasis. There is subtle deformity of the posterior lateral right fifth and sixth ribs which may represent acu te or subacute rib fracture. XR/XR ribs RT 2V* [id number] IMPRESSION: Blunting of the right costophrenic angle with presumed atelectatic areas in the right lung. Subtle rib deformities which likely represent nondisplaced postero lateral rib fractures as above.
[2024-09-28 11:35] VITALS: BP 169/92; PULSE 65; O2SAT 95
--- NOTE | 2024-09-28 11:37 | PC.PHAR ---
waiting on [facility] to [facility] me [facility] med list
[2024-09-28 11:39] LABS: Alanine Aminotransferase < 5 U/L (0-41); Albumin Level 3.9 g/dL (3.5-5.2); Alkaline Phosphatase 183 U/L (40-130); Anion Gap 16.1 (5-19); Aspartate Amino Transferase 10 U/L (0-40); Blood Urea Nitrogen 15 mg/dL (8-23); Calcium 8.4 mg/dL (8.5-10.5); Carbon Dioxide 22 mmol/L (22-29); Chloride 104 mmol/L (98-107); Globulin 2.7 g/dL (1.3-4.6); Glucose 96 mg/dL (65-115); Osmolality Calculated 287 mOsm/kg (285-295); Potassium 4.1 mmol/L (3.5-5.1); Sodium 138 mmol/L (136-145); Total Bilirubin 0.4 mg/dL (0.15-1.2); Total Protein 6.6 g/dL (6.6-8.7)
--- NOTE | 2024-09-28 12:27 | PC.PHAR ---
[facility] cannot get in contact with [facility] at this time. faxed no response. called ext directly said shed try to get it and its bee 2 hours... spoke to patients spouse and she said everything checks out other than there is a new sleeping med doctor chad would have just put him on and i called docs office and hes gone until tuesday and i couldnt get any verification otherwise
[2024-09-28 12:46] LABS: Add Urine Microscopic? YES; Bilirubin Urine Neg (Negative); Blood Urine 2+ (Negative); Glucose Urine UA Norm (Normal); Ketones Urine Negative (Negative); Leukocyte Esterase Urine Trace (Negative); Nitrate Urine Positive (Negative); Protein Urine Trace (Negative); Specific Gravity, Urine 1.025 (1.005-1.030); Urine Appearance Cloudy (CLEAR); Urine Color Yellow (Yellow); Urobilinogen Urine 4 mg/dL (Negative); pH Urine 5 (5-7)
[2024-09-28 12:48] LABS: Bacteria Urine 4+ /hpf; Squamous Epithelial Cell Urine 0-5 /hpf (0-5)
[2024-09-28 13:23] LABS: UA Slide Review UA Slide Review Perf
[2024-09-28 14:14] VITALS: BP 174/104; PULSE 67; O2SAT 95
== END 2024-09-28 14:09 | disposition home or self-care (01) ==
PROVIDERS: Emergency Provider Family Medicine; PCP Family Medicine
DX: N30.90 Cystitis, unspecified without hematuria (principal); S22.31XA Fracture of one rib, right side, initial encounter for closed fracture; W19.XXXA Unspecified fall, initial encounter; G31.83 Neurocognitive disorder with Lewy bodies; Z79.82 Long term (current) use of aspirin; I25.10 Atherosclerotic heart disease of native coronary artery without angina pectoris
CPT/HCPCS: 36415; 71045; 71100; 80053; 81001; 85025; 93005; 99285

== ENCOUNTER 2024-12-11 14:31 | Emergency (ER) | payer OTHER, MEDICARE, SELFPAY ==
[2024-12-11 14:49] VITALS: BP 145/93; PULSE 75; RESP 18; TEMP 36.8; O2SAT 96; BMI 28.2
--- NOTE | 2024-12-11 14:52 | ED_ITS ---
HPI - Extremity Injury (Upper) General: Chief Complaint: Extremity Injury, Upper Stated Complaint: left hand pain from fall Time Seen by Provider: 12/11/24 14:34 Source: patient and family Mode of arrival: wheelchair Limitations: no limitations History of Present Illness: Patient is an 84-year-old male who presents to ED today along with family for evaluation of a left hand injury. Patient states he was leaning over from his lift chair 3 days ago to grab the remotes that had fallen on the floor when he accidentally toppled over . Family states he sustained some rug lorenzo to his right hand and forehead. No LOC. He is not on anticoagulation. He does have a history of dementia but mental status has been normal since the fall. He has not complained of neck or back pain. Family has noticed some swelling and ecchymosis to the dorsum of the left hand and want to make sure it is not broke. Family nor patient have any other concerns at this time. MD complaint: injury to: left and hand Onset (ago): day(s) (3 days ago) Other Extremity Injury: Left: hand Other injuries: none Place: home Severity: moderate Exacerbating factors: movement of extremity Context: fall Associated symptoms: Reports no associated symptoms; Denies neck pain Related Data Home Medications Medication Instructions Recorded Confirmed cholecalciferol (vitamin D3) 25 75 mcg PO QAM 03/07/21 12/11/24 mcg (1,000 unit) tablet (Vitamin D3) aspirin 81 mg tablet,delayed 81 mg PO QAM 06/30/22 12/11/24 release isosorbide mononitrate 30 mg 15 mg PO QPM 06/30/22 12/11/24 tablet,extended release 24 hr famotidine 20 mg tablet (Pepcid) 20 mg PO BID PRN Heartburn 03/28/23 12/11/24 pantoprazole 40 mg tablet,delayed 40 mg PO DAILY@12 03/28/23 12/11/24 release carbidopa 25 mg-levodopa 100 mg 0.5 tab PO BID 04/06/24 12/11/24 tablet polyvinyl alcohol 1.4 % eye drops 2 drp ophthalmic (eye) QID PRN Dry 04/06/24 12/11/24 (Artificial Tears (polyvinyl Eye(S) alcohol)) prazosin 1 mg capsule See Rx Instructions .Route .COMPLEX 12/11/24 12/11/24 prazosin 2 mg capsule See Rx Instructions .Route .COMPLEX 12/11/24 12/11/24 Previous Rx's Medication Instructions Recorded nitroglycerin 0.4 mg sublingual 0.4 mg sublingual Q5M PRN chest 02/15/22 tablet pain #25 tabs midodrine 5 mg tablet 5 mg PO TID #90 tabs 10/10/23 mirabegron 25 mg tablet,extended 25 mg PO DAILY #90 tabs 03/15/24 release 24 hr (Myrbetriq) ondansetron 4 mg disintegrating 4 mg PO Q6H PRN nausea and 04/06/24 tablet vomiting #14 tabs citalopram 40 mg tablet (Celexa) 20 mg (1/2 x 40 mg) PO DAILY 30 08/13/24 days #90 tabs diclofenac sodium 1 % topical gel 4 g topical QID #100 grams 09/28/24 (Arthritis Pain (diclofenac)) tramadol 50 mg tablet 50 mg PO Q8H PRN pain #10 tabs 09/28/24 Allergies Allergy/AdvReac Type Severity Reaction Status Date / Time hydrocodone Allergy HALLUCINATI Verified 09/13/24 10:17 ONS ropinirole Allergy ADR-Halluci Verified 09/13/24 10:17 nating rosuvastatin Allergy ADR-Muscle Verified 09/13/24 10:17 Pain zonisamide [From Zonegran] Allergy HIVES Verified 09/13/24 10:17 metoprolol AdvReac BRADYCARDIA Verified 09/13/24 10:17 Penicillins AdvReac UNKNOWN Verified 09/13/24 10:17 pravastatin AdvReac MUSCLE PAIN Verified 09/13/24 10:17 Review of Systems Card: Denies: chest pain, palpitations, syncope or pre-syncope Resp: Denies: dyspnea GI: Denies: nausea or vomiting Musc: Reports: extremity pain (L hand) and extremity swelling (L hand); Denies: neck pain or back pain Neuro: Denies: headache(s) PFSH ED PFSH: Medical History Sleep apnea Chronic constipation Dementia CAD (coronary artery disease) Hypertensive emergency Non-ST elevation [place] (NSTEMI) 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 Tamia Foley. Bilateral L3-L4 hemilaminotomy/foraminotomy, with limited discectomy. Bilateral L2-L3 laminotomy/foraminotomy. S/P tonsillectomy and adenoidectomy S/P cataract extraction BILATERAL S/P cholecystectomy S/P shoulder surgery H/O elbow surgery Family History Grandmother CAD (coronary artery disease) Cancer Myocardial infarct Family/Other Hypertension Mother , at age 95 No problems noted. Father , at age 39 Blood clot associated with vein wall inflammation Social History Smoking and tobacco/nicotine status: never used tobacco/nicotine Alcohol intake: never Substance/Drug Use: never Household members: family and children Marital status: / Current occupational status: retired Physical Exam Const: COMMON NORMALS: no acute distress, average body habitus, healthy appearing, alert and well nourished EXAM LIMITATIONS: other limitations (dementia) GENERAL APPEARANCE: cooperative and comfortable HENMT: COMMON NORMALS: normocephalic and atraumatic HEAD & SCALP: normal to inspection (apart from mild abrasion R forehead), normocephalic and atraumatic FACE & SINUS: normal facial exam Neck/C-Spine: COMMON NORMALS: full ROM GENERAL: Yes normal visual inspection CERVICAL SPINE: No Cervical spine tenderness Back/Pelvis: COMMON NORMALS: thoracic and lumbar spine normal to inspection Extremity: COMMON NORMALS: capillary refill normal GENERAL: Yes normal exam except as noted LEFT UPPER EXTREMITY: Yes hand & digits (ecchymosis/mild edema dorsal L hand; no bony abnormality) Left hand and digits: Yes neurovascular exam (normal) Neuro: COMMON NORMALS: moves all extremities, no focal motor deficits and no sensory deficits noted SENSORIUM/ORIENTATION: Yes alert Skin: TRAUMA: abrasion (forehead, R hand) Course Vital Signs: Vital signs: Vital Signs Temperature 98.3 F 12/11/24 14:49 Pulse Rate 75 12/11/24 14:49 Respiratory Rate 18 12/11/24 14:49 Blood Pressure 145/93 12/11/24 14:49 Pulse Oximetry 96 12/11/24 14:49 Oxygen Delivery Me thod Room Air 12/11/24 14:49 MDM - Extremity Injury (Upper) Medical Decision Making XR showing a 3rd metacarpal fracture. Will splint and have him follow up with orthopedics. Lab Data Radiology Impressions Hand X-Ray 12/11/24 15:00 IMPRESSION: Acute displaced fracture 3rd metacarpal. All radiology interpretation(s) finalized by discharge Discharge Plan Discharge Patient Disposition: Home Clinical Impression: Closed fracture of third metacarpal bone Qualifiers: Encounter type: initial encounter Metacarpal location: shaft Fracture alignment: nondisplaced Laterality: left Qualified Code(s): S62.353A - Nondispla maira fracture of shaft of third metacarpal bone, left hand, initial encounter for closed fracture Condition: Stable Prescriptions: No Action nitroglycerin 0.4 mg tablet, sublingual 0.4 mg sublingual Q5M PRN (Reason: chest pain) Qty: 25 3RF Rx Instructions: do not exceed 3 doses per episode midodrine 5 mg tablet 5 mg PO TID Qty: 90 4RF Rx Instructions: do not give last dose of day after 6PM or within 4 hrs of bedtime Myrbetriq 25 mg tablet extended release 24 hr 25 mg PO DAILY Qty: 90 3RF Celexa 40 mg tablet 20 mg PO DAILY 30 Days Qty: 90 5RF cholecalciferol (vitamin D3) [Vitamin D3] 25 mcg (1,000 unit) Tablet 75 mcg PO QAM isosorbide mononitrate 30 mg tablet extended release 24 hr 15 mg PO QPM aspirin 81 mg Tablet,Delayed Release (Dr/Ec) 81 mg PO QAM prazosin 1 mg capsule See Rx Instructions .ROUTE .COMPLEX Rx Instructions: TAKE 1 CAPSULE BY MOUTH ONCE DAILY AT BEDTIME WITH 2 MG CAPSULE TO EQUAL 3 MG DOSE FOR NIGHT TERRORS prazosin 2 mg capsule See Rx Instructions .ROUTE .COMPLEX Rx Instructions: TAKE 1 CAPSULE BY MOUTH ONCE DAILY AT BEDTIME WITH 1 MG TO EQUAL 3 MG DOSE FOR NIGHT TERRORS famotidine [Pepcid] 20 mg Tablet 20 mg PO BID PRN (Reason: Heartburn) pantoprazole 40 mg tablet,delayed release (DR/EC) 40 mg PO DAILY@12 polyvinyl alcohol [Artificial Tears (polyvin alc)] 1.4 % Drops 2 drp OPHTHALMIC (EYE) QID PRN (Reason: Dry Eye(S)) carbidopa-levodopa 25-100 mg tablet 0.5 tab PO BID Rx Instructions: NOON AND 4 PM ondansetron 4 mg tablet,disintegrating 4 mg PO Q6H PRN (Reason: nausea and vomiting) Qty: 14 0RF diclofenac sodium [Arthritis Pain (diclofenac)] 1 % gel 4 g topical QID Qty: 100 0RF Rx Instructions: apply to single knee, ankle, foot; for foot includes sole/toes/top of foot tramadol 50 mg tablet 50 mg PO Q8H PRN (Reason: pain) Qty: 10 0RF Discharge Orders: Discharge ED (Routine); Ordered 12/11/24 Ordered By: Angie Quintana Referrals: Minnie Coello MD [Primary Care Provider] - Patient Instructions: Hand Fracture (DC) Activity Restrictions/Additional Instructions: As we discussed, his x-ray showed a fracture involving his third metacarpal on his hand. We will place him in a splint and case management will help set you up with a follow-up appointment with orthopedics. Coding Level of Care Code ED Reproduction Specialist for Krystyna Antony
--- NOTE | 2024-12-11 15:00 | XRR_ITS ---
PROCEDURE INFORMATION: Exam: XR Left Hand Exam date and time: 12/11/2024 3:03 PM Age: 84 years old Clinical indication: Injury or trauma; Fall; Blunt trauma (contusions or hematomas); Hand; Left; Additional info: Fall/injury TECHNIQUE: Imaging protocol: Radiologic exam of the left hand. Views: 3 or more views. COMPARISON: No relevant prior studies available. FINDINGS: Bones/joints: There is an acute vertically oriented fracture through the midshaft of the 3rd metacarpal with some displacement noted on the lateral view but is difficult to further characterize. Remaining osseous structures and joint surfaces are intact. Alignment is maintained bones are somewhat demineralized. Soft tissues: Unremarkable. XR/XR hand LT min 3V* [id number] IMPRESSION: Acute displaced fracture 3rd metacarpal.
[2024-12-11 16:05] VITALS: BP 160/81; PULSE 65; O2SAT 96
--- NOTE | 2024-12-13 07:13 | DCPLANNER ---
messaged ortho for er f/u
== END 2024-12-11 16:06 | disposition home or self-care (01) ==
PROVIDERS: Emergency Provider Physician Assistant; PCP Family Medicine
DX: S62.353A Nondisplaced fracture of shaft of third metacarpal bone, left hand, initial encounter for closed fracture (principal); Z79.82 Long term (current) use of aspirin; I25.10 Atherosclerotic heart disease of native coronary artery without angina pectoris; X58.XXXA Exposure to other specified factors, initial encounter
CPT/HCPCS: 73130; 99283

== ENCOUNTER → 2024-12-20 10:59 | Outpatient (BNVA) | payer OTHER, SELFPAY | PROVIDERS: PCP Family Medicine; Visit Provider Student in an Organized Health Care Education/Training Program | DX: S62.303A Unspecified fracture of third metacarpal bone, left hand, initial encounter for closed fracture (principal); W19.XXXA Unspecified fall, initial encounter | CPT/HCPCS: 73130 ==

== ENCOUNTER 2024-12-20 12:14 | Outpatient (CLI) | payer OTHER, SELFPAY | END 2024-12-20 12:15 | disposition home or self-care (01) | LOC: SPT 12:14 | PROVIDERS: PCP Family Medicine; Visit Provider Student in an Organized Health Care Education/Training Program | DX: Z46.89 Encounter for fitting and adjustment of other specified devices (principal); S62.353D Nondisplaced fracture of shaft of third metacarpal bone, left hand, subsequent encounter for fracture with routine healing; X58.XXXD Exposure to other specified factors, subsequent encounter | CPT/HCPCS: 99204; L3984 ==

== ENCOUNTER 2024-12-21 16:57 | Inpatient (IN) | payer OTHER, SELFPAY ==
--- NOTE | 2024-12-21 17:19 | XRR_ITS ---
PROCEDURE INFORMATION: Exam: XR Chest Exam date and time: 12/21/2024 6:15 PM Age: 84 years old Clinical indication: Prior surgery; Surgery date: 6+ months; Surgery type: Cardiac stents; Weakness; SOB TECHNIQUE: Imaging protocol: Radiologic exam of the chest. Views: 1 view. COMPARISON: CR XR chest 1V portable [id number] 09/28/2024 11:03 AM FINDINGS: Lungs: Probable areas of parenchymal scarring in the region of prior right rib fractures. No consolidation. Pleural spaces: Unremarkable. No pleural effusion. No pneumothorax. Heart/Mediastinum: Unremarkable. No cardiomegaly. Bones/joints: Multiple old posterior right upper rib fractures. No acute findings. XR/XR chest 1V portable [id number] IMPRESSION: No acute findings.
--- NOTE | 2024-12-21 17:20 | ECG_ITS ---
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 Measurements Intervals [place] Rate: 84 P: 47 ND: 156 QRS: -36 QRSD: 131 T: 49 QT: 428 QTc: 507 Interpretive Statements SINUS RHYTHM LEFT AXIS DEVIATION [QRS AXIS < -30] RIGHT BUNDLE BRANCH BLOCK [120+ ms QRS DURATION, UPRIGHT V1, 40+ ms S IN I/aVL/V4/V5/V6] POSSIBLE SEPTAL MYOCARDIAL INFARCTION , PROBABLY OLD [30 ms Q WAVE IN V1/V2] Compared to ECG 09/28/2024 11:00:02 Left-axis deviation now present Myocardial infarct finding still present Electronically Signed On 12-22-2024 13:18:01 [employer] by Maikel Osei M.D. [email or web address]
[2024-12-21 17:21] VITALS: BP 187/83; PULSE 86; RESP 33; TEMP 38.3; O2SAT 95
[2024-12-21 17:58] VITALS: BP 179/88; PULSE 86; RESP 18; O2SAT 98
[2024-12-21 18:05] LABS: Bilirubin Urine Negative (Negative); Blood Urine Negative (Negative); Glucose Urine UA Negative (Normal); Ketones Urine Negative (Negative); Leukocyte Esterase Urine Negative (Negative); Nitrate Urine Positive (Negative); Protein Urine Trace (Negative); Specific Gravity, Urine 1.023 (1.005-1.030); Urine Appearance Clear (CLEAR); Urine Color Yellow (Yellow)
[2024-12-21 18:10] LABS: Bacteria Urine 1+ /hpf; Hyaline Casts Urine 3.71 /lpf; RBC Urine 0-2 /hpf (0-2); Squamous Epithelial Cell Urine 0-5 /hpf (0-5); Universal Test for UA Present (0); WBC Urine 0-5 /hpf (0-5)
[2024-12-21 18:20] LABS: Basophils % 0.2 %; Hematocrit 36.4 % (37-53); Lymphocytes % 18.7 %; Mean Corpuscular HGB Conc 32.4 g/dL (30-55); Mean Corpuscular Hemoglobin 32.4 pg (27-33); Monocytes # 0.7 10^3/uL (0.2-0.9); Monocytes % 13.3 %; Neutrophils # 3.76 10^3/uL (1.8-7.7); Neutrophils % 67.6 %; Nucleated Red Blood Cells % 0 %; Platelet Count 139 10^3/cmm (157-399); Red Blood Count 3.64 10^6/uL (3.85-5.65); Red Cell Distribution Width 13.3 % (12.1-15.1); White Blood Count 5.56 10^3/uL (3.29-11.43)
--- NOTE | 2024-12-21 18:29 | ED_ITS ---
HPI - SOB/Dyspnea 2 General: Chief Complaint: Shortness of Breath/Dyspnea Stated Complaint: hypoxia ams Time Seen by Provider: 12/21/24 17:19 History of Present Illness: HPI Narrative: 84-year-old man with a history of sleep apnea, coronary disease, Parkinson's and dementia, Lewy body dementia who presents to the emergency room from assisted living by ambulance with worsening confusion, fever and concern for sepsis. If he is septic the family wants to rescind his hospice and have him admitted and treated for this. He currently cannot give any history is quite confused. Related Data Home Medications Medication Instructions Recorded Confirmed cholecalciferol (vitamin D3) 25 75 mcg PO QAM 03/07/21 12/20/24 mcg (1,000 unit) tablet (Vitamin D3) aspirin 81 mg tablet,delayed 81 mg PO QAM 06/30/22 12/20/24 release isosorbide mononitrate 30 mg 15 mg PO QPM 06/30/22 12/20/24 tablet,extended release 24 hr famotidine 20 mg tablet (Pepcid) 20 mg PO BID PRN Heartburn 03/28/23 12/20/24 pantoprazole 40 mg tablet,delayed 40 mg PO DAILY@12 03/28/23 12/20/24 release carbidopa 25 mg-levodopa 100 mg 0.5 tab PO BID 04/06/24 12/20/24 tablet polyvinyl alcohol 1.4 % eye drops 2 drp ophthalmic (eye) QID PRN Dry 04/06/24 12/20/24 (Artificial Tears (polyvinyl Eye(S) alcohol)) prazosin 1 mg capsule See Rx Instructions .Route .COMPLEX 12/11/24 12/20/24 prazosin 2 mg capsule See Rx Instructions .Route .COMPLEX 12/11/24 12/20/24 Previous Rx's Medication Instructions Recorded nitroglycerin 0.4 mg sublingual 0.4 mg sublingual Q5M PRN chest 02/15/22 tablet pain #25 tabs midodrine 5 mg tablet 5 mg PO TID #90 tabs 10/10/23 mirabegron 25 mg tablet,extended 25 mg PO DAILY #90 tabs 03/15/24 release 24 hr (Myrbetriq) ondansetron 4 mg disintegrating 4 mg PO Q6H PRN nausea and 04/06/24 tablet vomiting #14 tabs citalopram 40 mg tablet (Celexa) 20 mg (1/2 x 40 mg) PO DAILY 30 08/13/24 days #90 tabs diclofenac sodium 1 % topical gel 4 g topical QID #100 grams 09/28/24 (Arthritis Pain (diclofenac)) tramadol 50 mg tablet 50 mg PO Q8H PRN pain #10 tabs 09/28/24 Radial Gutter Fast Form #1 ea 12/20/24 Allergies Allergy/AdvReac Type Severity Reaction Status Date / Time hydrocodone Allergy HALLUCINATI Verified 12/20/24 11:08 ONS ropinirole Allergy ADR-Halluci Verified 12/20/24 11:08 nating rosuvastatin Allergy ADR-Muscle Verified 12/20/24 11:08 Pain zonisamide [From Zonegran] Allergy HIVES Verified 12/20/24 11:08 metoprolol AdvReac BRADYCARDIA Verified 12/20/24 11:08 Penicillins AdvReac UNKNOWN Verified 12/20/24 11:08 pravastatin AdvReac MUSCLE PAIN Verified 12/20/24 11:08 Review of Systems 2 Narrative: Constitutional symptoms: Negative except as documented in HPI. Skin symptoms: Negative except as documented in HPI. Eye symptoms: Negative except as documented in HPI. ENMT symptoms: Negative except as documented in HPI. Respiratory symptoms: Negative except as documented in HPI. Cardiovascular symptoms: Negative except as documented in HPI. Gastrointestinal symptoms: Negative except as documented in HPI. Genitourinary symptoms: Negative except as documented in HPI. Musculoskeletal symptoms: Negative except as documented in HPI. Neurologic symptoms: Negative except as documented in HPI. Psychiatric symptoms: Negative except as documented in HPI. Endocrine symptoms: Negative except as documented in HPI. 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 Tamia Foley. Bilateral L3-L4 hemilaminotomy/foraminotomy, with limited discectomy. Bilateral L2-L3 laminotomy/foraminotomy. S/P tonsillectomy and adenoidectomy S/P cataract extraction BILATERAL S/P cholecystectomy S/P shoulder surgery H/O elbow surgery Family History Grandmother CAD (coronary artery disease) Cancer Myocardial infarct Family/Other Hypertension Mother , at age 95 No problems noted. Father , at age 39 Blood clot associated with vein wall inflammation Social History Smoking and tobacco/nicotine status: never used tobacco/nicotine Alcohol intake: never Substance/Drug Use: never Household members: family and children Marital status: / Current occupational status: retired Physical Exam 2 Narrative: EXAM NARRATIVE: General: Somnolent, appears ill Skin: Warm, dry. Head: Normocephalic, atraumatic. Neck: Supple, trachea midline. Eye: Extraocular movements are intact. Ears, nose, mouth and throat: Dry oral mucosa Cardiovascular: Regular, Normal peripheral perfusion. Respiratory: Lungs are clear to auscultation, respirations are non-labored, breath sounds are equal, Symmetrical chest wall expansion. Gastrointestinal: Soft, Nontender, Non distended, Normal bowel sounds. Musculoskeletal: Normal ROM, no deformity. Neurological: Somnolent not oriented, No focal neurological deficit observed. Psychiatric: Patient seems confused/demented. Course 2 Vital Signs: Vital signs: Vital Signs Temperature 101.0 F H 12/21/24 17:21 Pulse Rate 75 12/21/24 19:06 Respiratory Rate 18 12/21/24 19:06 Blood Pressure 187/87 12/21/24 19:06 Pulse Oximetry 98 12/21/24 19:06 Oxygen Delivery Me thod Nasal Cannula 12/21/24 17:58 Oxygen Flow Rate 6 12/21/24 17:58 MDM - SOB/Dyspnea Medical Decision Making Medical decision making: Differential diagnosis including but not limited to and based on the above HPI, review of systems and physical exam: In this patient with altered mental status: Stroke. Hypoglycemia. Metabolic encephalopathy. Infections such as pneumonia, urinary tract infection, Covid-19, Influenza. Electrolyte abnormalities such as hypernatremia. Renal failure / uremia. Hepatic encephalopathy. Hypoxemia. Hypercapnic respiratory failure. Psychosis. Drug or alcohol intoxication. Medication overdose. Orders placed to evaluate differential diagnosis based on the above differential, HPI and physical exam EKG: Time 1724. Rate 84. Normal sinus rhythm, No ST-T changes, no ectopy, right bundle branch block, This was reviewed and interpreted by myself the ER physician at 1730 Chest x-ray: No acute process. No infiltrate. No pneumothorax. This was reviewed and interpreted by myself the emergency room physician. I also reviewed the radiology report. Lab Review: Laboratory results were reviewed and interpreted by myself the emergency room physician. No leukocytosis. No anemia. BUN is mildly elevated but creatinine is at his baseline. Urinalysis is nitrate positive with 1+ bacteria but minimal whites. Treating him as if he is septic initially. With a fever of 101. However COVID has come back positive. I reviewed the patient's medical record. Reexamination: When I went back to see the patient in the room he is started to have some rigors. I am rechecking a temperature and giving Tylenol. IV. No new focal deficits. Blood pressures remain fairly stable to high. Family is present. They are resending hospice and want to have him admitted. Consultation: I spoke with Dr. Becker who is admitting the patient. Assessment and plan: COVID-19 Hypoxemia Fever Metabolic encephalopathy Urinary tract infection Possible sepsis - no leukocytosis but lactate is slightly elevated at 2.7. He has bacteria and nitrate in his urine with just a few whites so I gave broad-spectrum antibiotics initially given his encephalopathy and fever. He does have COVID so it may be all secondary to that. I have given just a single liter of fluids. -Broad-spectrum antibiotics were administered. -Sepsis quality measures. -Lactic acid with a reflex was ordered. -Blood cultures were ordered. -I discussed the patient with the hospitalist on-call who is admitting the patient. - Discussed findings and plan with family. Answered any questions. - All laboratory values were reviewed and interpreted personally by myself, the ER physician - All imaging was reviewed and interpreted personally by myself, the ER physician. - Evaluation and treatment of this problem were appropriate in the emergency setting Critical care -I spent a total of >35 minutes of critical care time managing the patient, independent of any other practitioner. -The time involved in the performance of separately reportable procedures was not counted towards critical care time. Lab Data 12/21/24 18:01 12/21/24 18:01 Labs/Radiology: Radiology Impressions Chest X-Ray 12/21/24 17:19 IMPRESSION: No acute findings. Laboratory Results WBC 5.56 10^3/uL (3.29-11.43) 12/21/24 18:01 RBC 3.64 10^6/uL (3.85-5.65) L 12/21/24 18:01 Hgb 11.80 g/dL (11.27-16.99) 12/21/24 18:01 Hct 36.4 % (37-53) L 12/21/24 18:01 MCV 100.0 fl (82-101) 12/21/24 18:01 MCH 32.4 pg (27-33) 12/21/24 18:01 MCHC 32.4 g/dL (30-55) 12/21/24 18:01 RDW 13.3 % (12.1-15.1) 12/21/24 18:01 Plt Count 139 10^3/cmm (157-399) L 12/21/24 18:01 MPV 11.0 fL (7.4-10.4) H 12/21/24 18:01 Neut % (Auto) 67.6 % 12/21/24 18:01 Lymph % (Auto) 18.7 % 12/21/24 18:01 [place] % (Auto) 13.3 % 12/21/24 18:01 Eos % (Auto) 0.0 % 12/21/24 18:01 Baso % (Auto) 0.2 % 12/21/24 18:01 Neut # (Auto) 3.76 10^3/uL (1.8-7.7) 12/21/24 18:01 Lymph # (Auto) 1.0 10^3/uL (0.8-4.8) 12/21/24 18:01 [place] # (Auto) 0.7 10^3/uL (0.2-0.9) 12/21/24 18:01 Eos # (Auto) 0.0 10^3/uL (0.0-0.8) 12/21/24 18:01 Baso # (Auto) 0.0 10^3/uL (0.0-0.1) 12/21/24 18:01 Nucleated RBC % (auto) 0 % 12/21/24 18:01 Nucleated RBCs # 0.0 /100WBC 12/21/24 18:01 Sodium 144 mmol/L (136-145) 12/21/24 18:01 Potassium 3.9 mmol/L (3.5-5.1) 12/21/24 18:01 Chloride 108 mmol/L (98-107) H 12/21/24 18:01 Carbon Dioxide 24 mmol/L (22-29) 12/21/24 18:01 Anion Gap 15.9 (5-19) 12/21/24 18:01 BUN 24 mg/dL (8-23) H 12/21/24 18:01 Creatinine 0.8 mg/dL (0.7-1.2) 12/21/24 18:01 GFR Calculation Not Reportable 12/21/24 18:01 Glucose 131 mg/dL (65-115) H 12/21/24 18:01 Calculated Osmolality 304 mOsm/kg (285-295) H 12/21/24 18:01 Lactic Acid 2.7 mmol/L (0.5-2.2) H 12/21/24 18:01 Lactic Acid (Sepsis) 3.2 mmol/L (0.5-2.2) H 12/21/24 20:07 Calcium 8.3 mg/dL (8.5-10.5) L 12/21/24 18:01 Total Bilirubin 0.3 mg/dL (0.15-1.2) 12/21/24 18:01 AST 16 U/L (0-40) 12/21/24 18:01 ALT 12 U/L (0-41) 12/21/24 18:01 Alkaline Phosphatase 133 U/L (40-130) H 12/21/24 18:01 Troponin T Baseline 31 ng/L (0-15) H 12/21/24 18:01 Troponin T 120 Minute 28.24 ng/L (0-15) H 12/21/24 20:07 Delta Troponin T -2.76 ABS# (0-10) L 12/21/24 20:07 C-Reactive Protein 29.3 mg/L (0.0-4.9) H 12/21/24 18:01 Total Protein 5.9 g/dL (6.6-8.7) L 12/21/24 18:01 Albumin 3.8 g/dL (3.5-5.2) 12/21/24 18:01 Globulin 2.1 g/dL (1.3-4.6) 12/21/24 18:01 Procalcitonin 0.09 ng/mL (0-0.5) 12/21/24 18:01 Urine Color Yellow (Yellow) 12/21/24 17:47 Urine Appearance Clear (CLEAR) 12/21/24 17:47 Urine pH 5.0 (5-7) 12/21/24 17:47 Ur Specific [place] 1.023 (1.005-1.030) 12/21/24 17:47 Urine Protein Trace (Negative) A 12/21/24 17:47 Urine Glucose (UA) Negative (Normal) 12/21/24 17:47 Urine Ketones Negative (Negative) 12/21/24 17:47 Urine Blood Negative (Negative) 12/21/24 17:47 Urine Nitrate Positive (Negative) A 12/21/24 17:47 Urine Bilirubin Negative (Negative) 12/21/24 17:47 Urine Urobilinogen 1.0 mg/dL (Negative) 12/21/24 17:47 Ur Leukocyte Esterase Negative (Negative) 12/21/24 17:47 Urine RBC 0-2 /hpf (0-2) 12/21/24 17:47 Urine WBC 0-5 /hpf (0-5) 12/21/24 17:47 Ur Squamous Epith Cells 0-5 /hpf (0-5) 12/21/24 17:47 Amorphous Sediment Not Reportable 12/21/24 17:47 Urine Bacteria 1+ /hpf (NONE) H 12/21/24 17:47 Hyaline Casts 3.71 /lpf 12/21/24 17:47 Coronavirus (PCR) Positive (Negative) A 12/21/24 17:47 Influenza A (PCR) Negative (Negative) 12/21/24 17:47 Influenza Type B (PCR) Negative (Negative) 12/21/24 17:47 RSV (PCR) Negative (Negative) 12/21/24 17:47 All radiology interpretation(s) finalized by discharge Discharge Plan Discharge Patient Disposition: Admitted As Inpatient Clinical Impression: COVID-19, Hypoxemia, Encephalopathy, Fever, Urinary tract infection Lewy body dementia Qualifiers: Dementia severity: severe Dementia behavioral or psychological symptom: with mood disturbance Qualified Code(s): G31.83 - Neurocognitive disorder with Lewy bodies Condition: Stable Coding Level of Care Code ED Wool Shearing Supervisor for Krystyna Antony
[2024-12-21 18:34] LABS: Troponin(5th) Baseline 31 ng/L (0-15)
[2024-12-21 18:36] LABS: Lactic Sepsis W/Reflex 2.7 mmol/L (0.5-2.2)
[2024-12-21 18:37] LABS: Influenza A NEGATIVE (Negative); Influenza B NEGATIVE (Negative); Respiratory Syncytial Virus Ce NEGATIVE (Negative)
[2024-12-21 18:46] LABS: Alanine Aminotransferase 12 U/L (0-41); Albumin Level 3.8 g/dL (3.5-5.2); Alkaline Phosphatase 133 U/L (40-130); Anion Gap 15.9 (5-19); Aspartate Amino Transferase 16 U/L (0-40); Blood Urea Nitrogen 24 mg/dL (8-23); C Reactive Protein 29.3 mg/L (0.0-4.9); Calcium 8.3 mg/dL (8.5-10.5); Carbon Dioxide 24 mmol/L (22-29); Chloride 108 mmol/L (98-107); Globulin 2.1 g/dL (1.3-4.6); Glucose 131 mg/dL (65-115); Osmolality Calculated 304 mOsm/kg (285-295); Potassium 3.9 mmol/L (3.5-5.1); Sodium 144 mmol/L (136-145); Total Bilirubin 0.3 mg/dL (0.15-1.2); Total Protein 5.9 g/dL (6.6-8.7)
[2024-12-21 18:52] LABS: Covid PCR Positive (Negative)
[2024-12-21 18:53] LABS: Procalcitonin 0.09 ng/mL (0-0.5)
[2024-12-21] MEDS: cefepime 2,000 mg SDV 2000 MG IVP (18:57)
[2024-12-21] MEDS: sodium chloride 0.9% 1,000 ML 999 ML IV ×2 (18:57→23:51)
[2024-12-21] MEDS: linezolid premix 600 MG/300 ML PREMIX 300 MG IV (18:57)
[2024-12-21 19:06] VITALS: BP 187/87; PULSE 75; RESP 18; O2SAT 98
[2024-12-21 19:36] LABS: Reflex Lactate Order REFLEX LACTIC ORDERD
[2024-12-21] MEDS: acetaminophen 1,000 MG/100 ML PIGGYBACK 400 MG IV (20:14)
[2024-12-21 20:28] LABS: Troponin 5 2HR 28.24 ng/L (0-15); Troponin 5 2HR Delta -2.76 ABS# (0-10)
[2024-12-21 20:30] VITALS: PULSE 81; RESP 24; TEMP 37.9; O2SAT 98
[2024-12-21 20:30] LABS: Lactic Acid level (Lactate) 3.2 mmol/L (0.5-2.2)
[2024-12-21 21:41] VITALS: BP 158/94; PULSE 82; RESP 18; O2SAT 97
[2024-12-21 21:47] VITALS: BP 158/94; PULSE 81; RESP 16; O2SAT 95
[2024-12-21 22:43] VITALS: BMI 27.0
--- NOTE | 2024-12-21 22:48 | P.HP_ITS ---
Providers/Chief Complaint 2 Admitting Physician: Smitha Becker MD Primary Care Provider: Minnie Coello MD Chief Complaint: hypoxia ams History of Present Illness Renny Matos is a 84 year old male presented from [facility], daughters at the bedside stating that patient gets help from hospice care nurse, independent [facility] care(to prevent him to going to [facility]), nursing staff from the [facility], has been sick for last 3 days with generalized weakness fatigue, poor p.o. intake and mutism. Patient had low-grade fever 100.0, worsening of dehydration, hypoxia prompted his visit to the ER. In the ER he has been diagnosed with COVID-19. Patient has had high-grade fever, requiring 3.5 L of oxygen at the time of evaluation, as per the daughter whenever he gets sick his dementia would get worse and he will stop talking otherwise he is able to carry out conversation, they have not noticed any focal deficit. Patient does minimal physical therapy, as per the daughter he eats regular diet with thickened liquid. Patient is DNR/DNI. Daughter is requesting if we can treat him for COVID-19 with IV antiviral medications. Daughter is stating that hospice service was recommended by SD, it was secondary to advanced Parkinson features. Patient has been at the assisted living facility for last 2 years Clinically patient looks dehydrated, he would meet sepsis criteria with tachypnea tachycardia high lactic acid endorgan damage requiring oxygen Possibility of UTI Patient will get 2 L IV fluid bolus, etiology seems to be viral, however he has received linezolid and cefepime in the ER secondary to concern related to UTI Clinically patient looks dehydrated Patient is hypertensive Patient not able to provide any history, daughter stating that whenever he gets sick he would become mute Review of Systems 2 General: Reports: ROS unobtainable due to medical condition Medications/Allergies Home Medications Medication Instructions Recorded Confirmed Last Taken Type cholecalciferol (vitamin D3) 25 75 mcg PO QAM 03/07/21 12/20/24 12/11/24 History mcg (1,000 unit) tablet (Vitamin D3) nitroglycerin 0.4 mg sublingual 0.4 mg sublingual Q5M PRN chest 02/15/22 12/20/24 Unknown Rx tablet pain #25 tabs aspirin 81 mg tablet,delayed 81 mg PO QAM 0812/20/24 12/11/24 History release isosorbide mononitrate 30 mg 15 mg PO QPM 06/30/22 12/20/24 12/10/24 History tablet,extended release 24 hr famotidine 20 mg tablet (Pepcid) 20 mg PO BID PRN Heartburn 03/28/23 12/20/24 12/11/24 History pantoprazole 40 mg tablet,delayed 40 mg PO DAILY@12 03/28/23 12/20/24 12/10/24 History release midodrine 5 mg tablet 5 mg PO TID #90 tabs 10/10/23 12/20/24 12/10/24 Rx mirabegron 25 mg tablet,extended 25 mg PO DAILY #90 tabs 03/15/24 12/20/24 12/10/24 Rx release 24 hr (Myrbetriq) carbidopa 25 mg-levodopa 100 mg 0.5 tab PO BID 04/06/24 12/20/24 12/11/24 History tablet ondansetron 4 mg disintegrating 4 mg PO Q6H PRN nausea and 04/06/24 12/20/24 Unknown Rx tablet vomiting #14 tabs polyvinyl alcohol 1.4 % eye drops 2 drp ophthalmic (eye) QID PRN Dry 04/06/24 12/20/24 Unknown History (Artificial Tears (polyvinyl Eye(S) alcohol)) citalopram 40 mg tablet (Celexa) 20 mg (1/2 x 40 mg) PO DAILY 30 08/13/24 12/20/24 12/10/24 Rx days #90 tabs diclofenac sodium 1 % topical gel 4 g topical QID #100 grams 09/28/24 12/20/24 Unknown Rx (Arthritis Pain (diclofenac)) tramadol 50 mg tablet 50 mg PO Q8H PRN pain #10 tabs 09/28/24 12/20/24 12/10/24 Rx prazosin 1 mg capsule See Rx Instructions .Route .COMPLEX 12/11/24 12/20/24 12/10/24 History prazosin 2 mg capsule See Rx Instructions .Route .COMPLEX 12/11/24 12/20/24 12/10/24 History Radial Gutter Fast Form #1 ea 12/20/24 12/20/24 Unknown Rx Allergies Allergy/AdvReac Type Severity Reaction Status Date / Time hydrocodone Allergy HALLUCINATI Verified 12/20/24 11:08 ONS ropinirole Allergy ADR-Halluci Verified 12/20/24 11:08 nating rosuvastatin Allergy ADR-Muscle Verified 12/20/24 11:08 Pain zonisamide [From Zonegran] Allergy HIVES Verified 12/20/24 11:08 metoprolol AdvReac BRADYCARDIA Verified 12/20/24 11:08 Penicillins AdvReac UNKNOWN Verified 12/20/24 11:08 pravastatin AdvReac MUSCLE PAIN Verified 12/20/24 11:08 PFSH Acute 2 PFSH: Medical History Sleep apnea Chronic constipation Dementia CAD (coronary artery disease) Hypertensive emergency Non-ST elevation VT (NSTEMI) 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 Tamia Foley. Bilateral L3-L4 hemilaminotomy/foraminotomy, with limited discectomy. Bilateral L2-L3 laminotomy/foraminotomy. S/P tonsillectomy and adenoidectomy S/P cataract extraction BILATERAL S/P cholecystectomy S/P shoulder surgery H/O elbow surgery Family History Grandmother CAD (coronary artery disease) Cancer Myocardial infarct Family/Other Hypertension Mother , at age 95 No problems noted. Father , at age 39 Blood clot associated with vein wall inflammation Social History Smoking and tobacco/nicotine status: never used tobacco/nicotine Alcohol intake: never Substance/Drug Use: never Household members: family and children Marital status: / Current occupational status: retired Vitals/I&O/Wt Last Vital Signs Temp 100.2 F H 12/21/24 20:30 Pulse 81 12/21/24 21:47 Resp 16 12/21/24 21:47 BP 158/94 12/21/24 21:47 Pulse Ox 95 12/21/24 21:47 O2 Del Method Nasal Cannula 12/21/24 21:41 O2 Flow Rate 5 12/21/24 21:41 12/21/24 12/21/24 12/21/24 06:59 14:59 22:59 Intake Total 1400 / 1400 Balance 1400 / 1400 Physical Exam 2 Narrative: Patient clinically is dehydrated Awake and alert May able to make eye contact Currently on 3.5 L nasal cannula Mild rhonchi otherwise no significant wheezing No active chest pain endorsed by the patient when asked by his daughter Abdomen soft Ecchymosis of upper extremities I did not appreciate any focal deficit Resting tremors Mute, Poker's face S1, S2 tachycardia Cap refill less than 3 seconds Data 12/21/24 18:01 12/21/24 18:01 Micro: Microbiology 12/21/24 18:02 Blood Culture - Preliminary Blood SPECIMEN COLLECTED 12/21/24 18:01 Blood Culture - Preliminary Blood SPECIMEN COLLECTED A&P Assessment and plan (1) Sepsis: (2) Hypertension: Qualifiers: Hypertension type: essential hypertension Qualified Code(s): I10 - Essential (primary) hypertension (3) COVID-19: (4) History of prostate cancer: (5) Prostate CA: (6) Lower urinary tract symptoms (LUTS): (7) Chronic constipation: (8) Compression fracture of L1 lumbar vertebra: Qualifiers: Encounter type: initial encounter Qualified Code(s): S32.010A - Wedge compression fracture of first lumbar vertebra, initial encounter for closed fracture (9) Lewy body dementia: Qualifiers: Dementia behavioral or psychological symptom: with mood disturbance D ementia severity: severe Qualified Code(s): G31.83 - Neurocognitive disorder with Lewy bodies; F02.C3 - Dementia in other diseases classified elsewhere, severe, with mood disturbance (10) Shy-Drager syndrome: (11) Hypoxemia: (12) Fever: Plan Hypoxia Acute in nature Requiring 3.5 L Related to COVID-19 Start remdesivir Decadron DuoNeb treatment Wean off oxygen if possible Has been sick with COVID-19 for last 3 days as per the daughter, quarantine for 5 days Hypoactive delirium with underlying dementia Related to COVID-19, dehydration and sepsis UTI is a concern as well Sepsis Criteria met with tachypnea tachycardia fever endorgan damage requiring oxygen Patient will get judicious IV fluids 2 L IV antibiotics given Consideration given to UTI as well Will keep patient on ceftriaxone for now Parkinson's: Shy-Drager,/Lewy body dementia Patient does not speak very well in the state of sickness as per the daughter, patient currently is mute No active sign of stroke Patient was put on hospice he does have history of prostate cancer, patient is on prazosin, Reaves catheter placed in the ER Concern for UTI Start ceftriaxone Daughter does not want him to go to [facility], stating that there is a whole point of independent health services Patient will go back to assisted living, He is getting [facility], hospice care nurses, nursing staff from [facility] As per the daughter patient eats solid diet with thickened liquid DNR/DNI Daughter wants to continue physical therapy Attestations 2 Medical Necessity Statement*: More than 2 midnights anticipated Diagnoses Sepsis A41.9 Essential hypertension I10 Hypertension type: essential hypertension COVID-19 U07.1 History of prostate cancer Z85.46 Prostate CA C61 Lower urinary tract symptoms (LUTS) R39.9 Chronic constipation K59.09 Compression fracture of L1 vertebra, initial encounter S32.010A Encounter type: initial encounter Severe Lewy body dementia with mood disturbance G31.83; F02.C3 Dementia behavioral or psychological symptom: with mood disturbance Dementia severity: severe Shy-Drager syndrome G90.3 Hypoxemia R09.02 Fever R50.9
[2024-12-22] VITALS (9 sets, daily range): BP systolic 142–213; BP diastolic 79–100; PULSE 67–108; RESP 16–20; TEMP 36.4–37.3; O2SAT 94–99
[2024-12-22] MEDS: sodium chloride 0.9% 1,000 ML 75 ML IV (01:36)
[2024-12-22] MEDS: remdesivir 200 MG in sodium chloride 0.9% (100 ml) 60 ML 100 MG IV (01:37)
[2024-12-22] MEDS: heparin 5,000 unit/mL INJ 1 mL 5000 UNIT SUBCUT ×3 (01:40→22:16)
[2024-12-22] MEDS: hyDRALAzine 20 mg/mL INJ 1 mL 5 MG IVP ×3 (04:24→13:36)
[2024-12-22 04:28] LABS: Basophils % 0.2 %; Hematocrit 38.6 % (37-53); Lymphocytes % 16.2 %; Mean Corpuscular HGB Conc 31.1 g/dL (30-55); Mean Corpuscular Hemoglobin 32.1 pg (27-33); Mean Corpuscular Volume 103.2 fl (82-101); Mean Platelet Volume 10.7 fL (7.4-10.4); Monocytes # 0.7 10^3/uL (0.2-0.9); Monocytes % 11.4 %; Neutrophils # 4.35 10^3/uL (1.8-7.7); Nucleated Red Blood Cells % 0 %; Platelet Count 112 10^3/cmm (157-399); Red Blood Count 3.74 10^6/uL (3.85-5.65); Red Cell Distribution Width 13.2 % (12.1-15.1); White Blood Count 6.04 10^3/uL (3.29-11.43)
[2024-12-22 04:54] LABS: Lactic Sepsis W/Reflex 1.6 mmol/L (0.5-2.2)
[2024-12-22 04:56] LABS: Anion Gap 10.6 (5-19); Blood Urea Nitrogen 16 mg/dL (8-23); C Reactive Protein 24.8 mg/L (0.0-4.9); Carbon Dioxide 28 mmol/L (22-29); Chloride 107 mmol/L (98-107); Creatinine Clr Calc Pharmacy 69.1292; Glucose 116 mg/dL (65-115); Magnesium 1.9 mg/dL (1.7-2.3); Osmolality Calculated 294 mOsm/kg (285-295); Phosphorus 3.4 mg/dL (2.5-4.5); Potassium 4.6 mmol/L (3.5-5.1); Sodium 141 mmol/L (136-145)
[2024-12-22] MEDS: dexamethasone 4 mg Tablet 6 MG PO (08:31)
[2024-12-22] MEDS: aspirin 81 mg EC Tablet PO (08:31)
[2024-12-22] MEDS: sennosides-docusate Tablet 1 TAB PO (08:31)
[2024-12-22] MEDS: cefTRIAXone 1,000 mg SDV 1000 MG IVP (08:32)
[2024-12-22] MEDS: carbidopa-levodopa 25-100mg Tablet 0.5 EACH PO ×2 (08:32→18:09)
[2024-12-22] MEDS: TRAMadol 50 mg Tablet PO ×2 (11:07→20:23)
[2024-12-22] MEDS: pantoprazole DR 40 mg Tablet PO (11:07)
--- NOTE | 2024-12-22 11:29 | PC.CHAP ---
Pastoral Care Encounter/Spiritual Assessment Type of Contact [] Declined piecer visit [] Patient/Family/Request visit [] Outpatient visit [] Follow-up visit [] Physician referral [] Code/Alert [] Routine visit [] Staff referral [] Actively dying [] Patient sleeping [] Family support [] [] Out of room [] Palliative care [] [] Receiving care in room [] Pre-surgical visit [] Trauma [] Long length of stay [] ICU visit [] Other: STOP Relational/Emotional Strength [] Patient feels connected with others/family/visitors/staff [] Distress [] Loneliness/isolation [] Abandonment Spirituality of Patient [] Person of Gerda [] Attends Sikh of their Gerda [] Believes in Prayer [] Reads Bible or Hindu materials [] There are Spiritual issues to be addressed Plan Nurse Interventions [] Prayer [] Active listening [] Non-anxious presence [] Spiritual/emotional support [] Crisis/trauma care [] Spiritual counseling [] Bereavement support [] Provided bereavement packet [] Provided Bible/devotional materials [] Provided toy/stuffed animal, coloring book to patient or family member [] Provided Communion [] Anointing/Hilo [] Salvation [] Completed spiritual assessment [] Other: Impact on Illness or Injury [] Angry [] Fearful [] Anxious [] Often cries [] Exhaustion [] Unable to work [] Unable to attend sikh [] Unable to walk/stand [] Unable to read [] Unable to drive [] Unable to eat/drink [] Unable to sleep [] Unable to be with family [] Patient intubated [] Other: Summary Time spent with patient
--- NOTE | 2024-12-22 16:41 | XRR_ITS ---
PROCEDURE INFORMATION: Exam: XR Left Shoulder Exam date and time: 12/22/2024 5:25 PM Age: 84 years old Clinical indication: Pain; Shoulder; Left TECHNIQUE: Imaging protocol: Radiologic exam of the left shoulder. Views: 2 or more views. COMPARISON: CR (CHEST, ) 12/21/2024 6:15 PM FINDINGS: Bones/joints: Severe glenohumeral osteoarthritis. Question anterior glenohumeral subluxation. The acromioclavicular articulation is grossly intact with moderate osteoarthritis. Soft tissues: No gross soft tissue abnormality. XR/XR shoulder LT min 2V* [id number] IMPRESSION: 1. Severe glenohumeral osteoarthritis. Question anterior glenohumeral subluxation. CT may be helpful for further detail if clinically warranted.
--- NOTE | 2024-12-22 16:43 | P.PN_ITS ---
Subjective 2 Subjective: Seen this morning. Patient complains of left shoulder pain. Poor historian. Daughter present at bedside. Does not say yes or no to pain upon range of motion of left shoulder. Does have a history of arthritis. Troponins negative delta at 6 hours checked on admission. Vitals/I&O/Wt Last Vital Signs Temp 99.2 F 12/22/24 12:00 Pulse 78 12/22/24 12:00 Resp 17 12/22/24 12:00 BP 198/100 12/22/24 12:00 Pulse Ox 96 12/22/24 16:22 O2 Del Method Nasal Cannula 12/22/24 16:22 O2 Flow Rate 2 12/22/24 16:22 12/22/24 12/22/24 12/22/24 06:59 14:59 22:59 Intake Total 1318.75 / 2718.75 480 / 480 781.25 / 1261.25 Output Total 950 / 950 Balance 368.75 / 1768.75 480 / 480 781.25 / 1261.25 Weight last 48 hrs Weight 77.927 kg Weight 75.931 kg Physical Exam 2 Narrative: Patient clinically is dehydrated Awake and alert May able to make eye contact Currently on 2L nasal cannula Mild rhonchi otherwise no significant wheezing No active chest pain at this time. Abdomen soft Ecchymosis of upper extremities Resting tremors He is not speaking. S1, S2 tachycardia Cap refill less than 3 seconds Data 12/22/24 04:16 12/22/24 04:16 Micro: Microbiology 12/21/24 18:02 Blood Culture - Preliminary Blood SPECIMEN COLLECTED 12/21/24 18:01 Blood Culture - Preliminary Blood SPECIMEN COLLECTED A&P Assessment and plan (1) Sepsis: (2) Hypertension: Qualifiers: Hypertension type: essential hypertension Qualified Code(s): I10 - Essential (primary) hypertension (3) COVID-19: (4) History of prostate cancer: (5) Prostate CA: (6) Lower urinary tract symptoms (LUTS): (7) Chronic constipation: (8) Compression fracture of L1 lumbar vertebra: Qualifiers: Encounter type: initial encounter Qualified Code(s): S32.010A - Wedge compression fracture of first lumbar vertebra, initial encounter for closed fracture (9) Lewy body dementia: Qualifiers: Dementia behavioral or psychological symptom: with mood disturbance D ementia severity: severe Qualified Code(s): G31.83 - Neurocognitive disorder with Lewy bodies; F02.C3 - Dementia in other diseases classified elsewhere, severe, with mood disturbance (10) Shy-Drager syndrome: (11) Hypoxemia: (12) Fever: Plan Hypoxia Acute in nature Requiring 3.5 L Related to COVID-19 Start remdesivir Decadron DuoNeb treatment Wean off oxygen if possible Has been sick with COVID-19 for last 3 days as per the daughter, quarantine for 5 days Hypoactive delirium with underlying dementia Related to COVID-19, dehydration and sepsis UTI is a concern as well Sepsis Criteria met with tachypnea tachycardia fever endorgan damage requiring oxygen Patient will get judicious IV fluids 2 L IV antibiotics given Consideration given to UTI as well Will keep patient on ceftriaxone for now Parkinson's: Shy-Drager,/Lewy body dementia Patient does not speak very well in the state of sickness as per the daughter, patient currently is mute No active sign of stroke Patient was put on hospice he does have history of prostate cancer, patient is on prazosin, Reaves catheter placed in the ER Concern for UTI Start ceftriaxone Daughter does not want him to go to skilled nursing, stating that there is a whole point of independent health services Patient will go back to assisted living, He is getting help from [facility], hospice care nurses, nursing staff from [facility] As per the daughter patient eats solid diet with thickened liquid DNR/DNI Daughter wants to continue physical therapy 12/22/2024 Will order left sided shoulder x-ray Continue to treat for UTI Patient is on hospice Does have a history of prostate cancer Continue ceftriaxone at this time. Continue to treat for COVID with steroids and remdesivir. Blood pressure has been elevated in the morning. Patient is on hydralazine. I will increase to 10 every 4 hours as needed. Continue plan as per H&P. Attestations 2 Medical Necessity Statement*: More than 2 midnights anticipated Coding Level of Care Code Acute Code for Chg Fwd Diagnoses Sepsis A41.9 Essential hypertension I10 Hypertension type: essential hypertension COVID-19 U07.1 History of prostate cancer Z85.46 Prostate CA C61 Lower urinary tract symptoms (LUTS) R39.9 Chronic constipation K59.09 Compression fracture of L1 vertebra, initial encounter S32.010A Encounter type: initial encounter Severe Lewy body dementia with mood disturbance G31.83; F02.C3 Dementia behavioral or psychological symptom: with mood disturbance Dementia severity: severe Shy-Drager syndrome G90.3 Hypoxemia R09.02 Fever R50.9
[2024-12-22] MEDS: remdesivir 100 MG in sodium chloride 0.9% (100 ml) 80 ML IV (18:08)
[2024-12-22] MEDS: isosorbide mononitrate ER 30 mg Tablet 15 MG PO (18:08)
[2024-12-22] MEDS: acetaminophen 500 mg Tablet PO (18:25)
[2024-12-22] MEDS: prazosin 1 mg Capsule 3 MG PO (20:23)
[2024-12-23] VITALS (7 sets, daily range): BP systolic 129–203; BP diastolic 61–92; PULSE 66–93; RESP 14–22; TEMP 36.7–37.3; O2SAT 94–96
[2024-12-23 04:16] LABS: Hematocrit 38.4 % (37-53); Lymphocytes # 0.8 10^3/uL (0.8-4.8); Lymphocytes % 18.3 %; Mean Corpuscular Hemoglobin 31.6 pg (27-33); Mean Corpuscular Volume 101.9 fl (82-101); Mean Platelet Volume 11.6 fL (7.4-10.4); Monocytes # 0.5 10^3/uL (0.2-0.9); Monocytes % 12.4 %; Neutrophils # 3.01 10^3/uL (1.8-7.7); Neutrophils % 68.8 %; Nucleated Red Blood Cells % 0 %; Platelet Count 97 10^3/cmm (157-399); Red Blood Count 3.77 10^6/uL (3.85-5.65); Red Cell Distribution Width 13.2 % (12.1-15.1); White Blood Count 4.37 10^3/uL (3.29-11.43)
[2024-12-23] MEDS: hyDRALAzine 20 mg/mL INJ 1 mL 5 MG IVP ×2 (04:39→20:36)
[2024-12-23 04:49] LABS: Blood Urea Nitrogen 22 mg/dL (8-23); Calcium 8.7 mg/dL (8.5-10.5); Carbon Dioxide 23 mmol/L (22-29); Chloride 109 mmol/L (98-107); Creatinine Clr Calc Pharmacy 69.9331; Glucose 107 mg/dL (65-115); Osmolality Calculated 302 mOsm/kg (285-295); Sodium 144 mmol/L (136-145)
[2024-12-23 04:52] LABS: Anion Gap 16.4 (5-19); Potassium 4.4 mmol/L (3.5-5.1)
--- NOTE | 2024-12-23 08:35 | CTR_ITS ---
PROCEDURE INFORMATION: Exam: CT Left Upper Extremity Without Contrast, Shoulder Exam date and time: 12/23/2024 9:55 AM Age: 84 years old Clinical indication: Pain; Shoulder; Left; Additional info: Subluxation of joint? PT has pain TECHNIQUE: Imaging protocol: Computed tomography of the left upper extremity without contrast. Exam focused on the shoulder. Radiation optimization: All CT scans at this facility use at least one of these dose optimization techniques: automated exposure control; mA and/or kV adjustment per patient size (includes targeted exams where dose is matched to clinical indication); or iterative reconstruction. COMPARISON: CR (CHEST, ) 12/22/2024 5:25 PM RADIATION DOSE METRICS: Total DLP (mGy-cm): 684.47 FINDINGS: Bones/joints: Severe degenerative disease of the left glenohumeral joint. Chondrocalcinosis of the left glenohumeral joint. Severe degenerative disease of the left acromioclavicular joint. Multiple joint bodies in the glenohumeral joint, the largest at the posterior aspect of the left glenohumeral joint measuring 1.2 cm. Soft tissues: Normal. Lymph nodes: Calcified left hilar lymph nodes. CT/CT shoulder LT wo con* [id number] IMPRESSION: 1. No acute fracture or dislocation of the glenohumeral joint. 2. Severe degenerative disease of the glenohumeral and acromioclavicular joints.
[2024-12-23] MEDS: TRAMadol 50 mg Tablet PO ×2 (08:37→17:51)
[2024-12-23] MEDS: sennosides-docusate Tablet 1 TAB PO (08:37)
[2024-12-23] MEDS: carbidopa-levodopa 25-100mg Tablet 0.5 EACH PO ×2 (08:37→17:50)
[2024-12-23] MEDS: cefTRIAXone 1,000 mg SDV 1000 MG IVP (08:37)
[2024-12-23] MEDS: dexamethasone 4 mg Tablet 6 MG PO (08:37)
[2024-12-23] MEDS: aspirin 81 mg EC Tablet PO (08:38)
[2024-12-23] MEDS: pantoprazole DR 40 mg Tablet PO (12:37)
[2024-12-23] MEDS: heparin 5,000 unit/mL INJ 1 mL 5000 UNIT SUBCUT ×2 (12:37→22:14)
--- NOTE | 2024-12-23 13:21 | PM.PN ---
Subjective Subjective: Seen this morning. Laying in bed. Patient's daughter states that he is starting to talk now. He does appear to be better. Still requiring 2 L nasal cannula. She has not reported any more chest pain to me this morning. She is concerned about upper extremity ecchymosis that she states today developed after blood pressure was taken on both arms. Vitals/I&O/Wt Last Vital Signs Temp 98.4 F 12/23/24 11:23 Pulse 66 12/23/24 11:23 Resp 17 12/23/24 11:23 BP 179/68 12/23/24 11:23 Pulse Ox 94 12/23/24 11:23 O2 Del Method Nasal Cannula 12/23/24 11:23 O2 Flow Rate 2 12/23/24 08:13 12/22/24 12/23/24 12/23/24 22:59 06:59 14:59 Intake Total 1001.25 / 1481.25 240 / 240 Output Total 1000 / 1000 400 / 1400 Balance 1.25 / 481.25 -400 / 81.25 240 / 240 Weight last 48 hrs Weight 75.432 kg Weight 77.927 kg Weight 75.931 kg Physical Exam Narrative: Appears a lot better this morning. Awake alert. Will not talk to me however was talking to daughter earlier. She states that he has also gotten out of bed and use his walker earlier. Awake and alert May able to make eye contact Currently on 2L nasal cannula Mild rhonchi otherwise no significant wheezing No active chest pain at this time. Abdomen soft Ecchymosis of upper extremities Resting tremors S1, S2 tachycardia Cap refill less than 3 seconds Data 12/23/24 03:57 12/23/24 03:57 Micro: Microbiology 12/21/24 18:02 Blood Culture - Preliminary Blood NEGATIVE TO DATE 12/21/24 18:01 Blood Culture - Preliminary Blood NEGATIVE TO DATE A&P Assessment and plan (1) Sepsis: (2) Hypertension: Qualifiers: Hypertension type: essential hypertension Qualified Code(s): I10 - Essential (primary) hypertension (3) COVID-19: (4) History of prostate cancer: (5) Prostate CA: (6) Lower urinary tract symptoms (LUTS): (7) Chronic constipation: (8) Compression fracture of L1 lumbar vertebra: Qualifiers: Encounter type: initial encounter Qualified Code(s): S32.010A - Wedge compression fracture of first lumbar vertebra, initial encounter for closed fracture (9) Lewy body dementia: Qualifiers: Dementia behavioral or psychological symptom: with mood disturbance Dementia severity: severe Qualified Code(s): G31.83 - Neurocognitive disorder with Lewy bodies; F02.C3 - Dementia in other diseases classified elsewhere, severe, with mood disturbance (10) Shy-Drager syndrome: (11) Hypoxemia: (12) Fever: Plan Hypoxia Acute in nature Requiring 3.5 L Related to COVID-19 Start remdesivir Decadron DuoNeb treatment Wean off oxygen if possible Has been sick with COVID-19 for last 3 days as per the daughter, quarantine for 5 days Hypoactive delirium with underlying dementia Related to COVID-19, dehydration and sepsis UTI is a concern as well Sepsis Criteria met with tachypnea tachycardia fever endorgan damage requiring oxygen Patient will get judicious IV fluids 2 L IV antibiotics given Consideration given to UTI as well Will keep patient on ceftriaxone for now Parkinson's: Shy-Drager,/Lewy body dementia Patient does not speak very well in the state of sickness as per the daughter, patient currently is mute No active sign of stroke Patient was put on hospice he does have history of prostate cancer, patient is on prazosin, Reaves catheter placed in the ER Concern for UTI Start ceftriaxone Daughter does not want him to go to correction, stating that there is a whole point of independent health services Patient will go back to assisted living, He is getting help from [facility] services, hospice care nurses, nursing staff from [facility] As per the daughter patient eats solid diet with thickened liquid DNR/DNI Daughter wants to continue physical therapy 12/22/2024 Will order left sided shoulder x-ray Continue to treat for UTI Patient is on hospice Does have a history of prostate cancer Continue ceftriaxone at this time. Continue to treat for COVID with steroids and remdesivir. Blood pressure has been elevated in the morning. Patient is on hydralazine. I will increase to 10 every 4 hours as needed. Continue plan as per H&P. 12/23/2024 -Shoulder x-ray is normal. CT shoulder also ordered which does not show any subluxation or dislocation. ?EKG reviewed from admission. No evidence of ST elevation MD. Does have a chronic right bundle branch block. ? Urine culture ordered. ? Will order bilateral upper extremity ultrasound ? Patient is daughter does report that he has frequent falls. Ecchymosis may be secondary to that however she is concerned that he may have a blood clot in his upper extremities which I did assure her that we would see swelling if that was the case. ?Will check chest x-ray in AM. Continue to treat for COVID. Attestations Medical Necessity Statement*: More than 2 midnights anticipated Diagnoses Sepsis A41.9 Essential hypertension I10 Hypertension type: essential hypertension COVID-19 U07.1 History of prostate cancer Z85.46 Prostate CA C61 Lower urinary tract symptoms (LUTS) R39.9 Chronic constipation K59.09 Compression fracture of L1 vertebra, initial encounter S32.010A Encounter type: initial encounter Severe Lewy body dementia with mood disturbance G31.83; F02.C3 Dementia behavioral or psychological symptom: with mood disturbance Dementia severity: severe Shy-Drager syndrome G90.3 Hypoxemia R09.02 Fever R50.9
--- NOTE | 2024-12-23 13:27 | USR_ITS ---
PROCEDURE INFORMATION: Exam: US Duplex Upper Extremity Veins, Bilateral, Complete Exam date and time: 12/23/2024 6:01 PM Age: 84 years old Clinical indication: Screening exam; R/O dvt TECHNIQUE: Imaging protocol: Real-time duplex ultrasound of the extremities with 2-D howell scale, color Doppler flow and spectral waveform analysis including responses to compression and other maneuvers (when performed) with image documentation. Complete exam focused on the bilateral upper extremity veins. COMPARISON: CT shoulder LT wo con* [id number] 12/23/2024 9:55 AM FINDINGS: Right deep veins: Internal jugular, innominate, subclavian, axillary, brachial, radial and ulnar veins patent without thrombus. Normal compressibility, augmentation response and/or Doppler waveforms. Left deep veins: Internal jugular, innominate, subclavian, axillary, brachial, radial and ulnar veins patent without thrombus. Normal compressibility, augmentation response and/or Doppler waveforms. Superficial veins: Unremarkable. Visualized cephalic and basilic veins are patent without thrombus. Soft tissues: Unremarkable. US/[place] [id number] IMPRESSION: No sonographic evidence of deep venous thrombosis.
[2024-12-23] MEDS: acetaminophen 500 mg Tablet PO ×2 (16:15→20:33)
[2024-12-23] MEDS: isosorbide mononitrate ER 30 mg Tablet 15 MG PO (17:50)
[2024-12-23] MEDS: remdesivir 100 MG in sodium chloride 0.9% (100 ml) 80 ML IV (17:51)
[2024-12-23] MEDS: prazosin 1 mg Capsule 3 MG PO (20:34)
[2024-12-24] VITALS (9 sets, daily range): BP systolic 152–215; BP diastolic 67–92; PULSE 61–98; RESP 17–19; TEMP 36.3–36.9; O2SAT 93–98
[2024-12-24 05:36] LABS: Hematocrit 35.5 % (37-53); Lymphocytes % 23.9 %; Mean Corpuscular HGB Conc 32.4 g/dL (30-55); Mean Corpuscular Hemoglobin 31.5 pg (27-33); Mean Corpuscular Volume 97.3 fl (82-101); Mean Platelet Volume 11.6 fL (7.4-10.4); Monocytes # 0.6 10^3/uL (0.2-0.9); Monocytes % 15.6 %; Neutrophils # 2.41 10^3/uL (1.8-7.7); Neutrophils % 60.5 %; Nucleated Red Blood Cells % 0 %; Platelet Count 116 10^3/cmm (157-399); Red Blood Count 3.65 10^6/uL (3.85-5.65); Red Cell Distribution Width 12.9 % (12.1-15.1); White Blood Count 3.98 10^3/uL (3.29-11.43)
[2024-12-24 05:52] LABS: Anion Gap 14.9 (5-19); Blood Urea Nitrogen 27 mg/dL (8-23); Calcium 8.3 mg/dL (8.5-10.5); Carbon Dioxide 23 mmol/L (22-29); Chloride 108 mmol/L (98-107); Creatinine Clr Calc Pharmacy 68.9282; Glucose 104 mg/dL (65-115); Osmolality Calculated 299 mOsm/kg (285-295); Potassium 3.9 mmol/L (3.5-5.1); Sodium 142 mmol/L (136-145)
--- NOTE | 2024-12-24 08:00 | XR_ITS ---
WS: [id number] PORTABLE CHEST HISTORY: f/u COMPARISON: 09/28/2024, 12/21/2024 New area of consolidation in the RIGHT upper lobe associated with the recently described rib fracture s. Lung volumes are decreased. No pneumothorax seen radiographically. No pleural effusion or pneumoth orax. Cardiac size: Normal. Mediastinum/Aorta: Mild atherosclerosis aorta. RIGHT hilar calcified lymph node. Mild degenerative changes at the before meals and glenohumeral joints. Several contiguous posterior R IGHT rib fractures. XR/XR chest 1V portable [id number] IMPRESSION: 1. RIGHT upper lobe increased attenuation at the site of prior rib fractures. This may be a pulmonary contusion or developing pneumonia. If this is a pulmona ry contusion this may represent a significant lung injury related to the rib fr actures. No pneumothorax identified. Recommend follow-up chest CT.
[2024-12-24] MEDS: carbidopa-levodopa 25-100mg Tablet 0.5 EACH PO ×2 (09:20→17:47)
[2024-12-24] MEDS: sennosides-docusate Tablet 1 TAB PO (09:20)
[2024-12-24] MEDS: cefTRIAXone 1,000 mg SDV 1000 MG IVP (09:20)
[2024-12-24] MEDS: aspirin 81 mg EC Tablet PO (09:20)
[2024-12-24] MEDS: dexamethasone 4 mg Tablet 6 MG PO (09:20)
[2024-12-24] MEDS: hyDRALAzine 20 mg/mL INJ 1 mL 5 MG IVP (09:53)
--- NOTE | 2024-12-24 12:29 | PC.SOCIAL ---
IMM Update pg 2 of IMM Updated and reviewed w/ patients daughter. Copy provided and copy dated, initialed and placed in chart.
[2024-12-24] MEDS: pantoprazole DR 40 mg Tablet PO (12:34)
[2024-12-24] MEDS: heparin 5,000 unit/mL INJ 1 mL 5000 UNIT SUBCUT ×2 (12:35→22:22)
[2024-12-24 14:13] LABS: Estmated Average Glucose 108; Hemoglobin A1C 5.4 % (4.0-6.0)
[2024-12-24 14:17] LABS: Iron 84 ug/dL (59-158); Percent Saturation 45.6 % (20-50); Thyroid Stimulating Hormone 1.55 uIU/mL (0.27-4.20); Total Iron Binding Capacity 184 mcg/dl; Unsaturated Iron Binding 100 ug/dL (112-347); Vitamin B12 400 pg/mL (232-1245)
[2024-12-24] MEDS: hyDRALAzine 10 mg Tablet PO (16:07)
[2024-12-24] MEDS: isosorbide mononitrate ER 30 mg Tablet 15 MG PO (17:47)
[2024-12-24] MEDS: remdesivir 100 MG in sodium chloride 0.9% (100 ml) 80 ML IV (17:47)
--- NOTE | 2024-12-24 18:25 | PM.PN ---
Subjective Subjective: Full course, labs appreciated. Seen with daughter at bedside. Patient is awake though not alert. On 2 L of oxygen supplementation. Vitals/I&O/Wt Last Vital Signs Temp 97.4 F L 12/24/24 11:31 Pulse 61 12/24/24 11:31 Resp 17 12/24/24 11:31 BP 185/75 12/24/24 11:31 Pulse Ox 94 12/24/24 11:31 O2 Del Method Nasal Cannula 12/24/24 11:31 O2 Flow Rate 1 12/24/24 08:00 12/24/24 12/24/24 12/24/24 06:59 14:59 22:59 Intake Total 100 / 100 Output Total 400 / 950 Balance -400 / -370 100 / 100 Weight last 48 hrs Weight 75.432 kg Weight 75.432 kg Physical Exam Narrative: General: Chronically sick appearing, AO x 1 to 2, no acute distress, on nasal cannula HEENT: PERRLA, pupils bilaterally equal and reactive Chest: Bilateral bronchial breath sounds all over lung bailey with occasional rhonchi, cough present present in right lower zone CVS: S1-S2 regular, no murmurs, no tachycardia, no gallops, no rubs Abdomen: Soft, nontender, no organomegaly, bowel sounds present Neuro: No focal deficits, no facial deformity, Data 12/24/24 04:56 12/24/24 04:56 A&P Assessment and plan (1) Hypoxemia: In setting of COVID-19. Cannot rule out aspiration pneumonia. Supplementation keeping saturation over 90%. (2) COVID-19: Hypoxia secondary to COVID-19 pneumonia: Mild to moderate disease. Oxygen supplementation keeping saturation over 88%. Start on dexamethasone 6 mg daily. Remdesivir to finish a 5-day course. DuoNeb every 6 hour, budesonide twice daily Pulmonary toilet with incentive spirometry flutter valve. We will monitor inflammatory markers including CRP every 48 hours. Check D-dimer. If elevated will do CT otherwise CT chest without contrast for further evaluation of pneumonia. Will plan for anticoagulation as per the results. Sputum culture cannot be collected. Follow-up blood culture result. Continue with IV ceftriaxone 1 g daily. Will also help with UTI. Trend procalcitonin. Strict input output charting, daily weights. (3) Hypertensive emergency: Goal blood pressure less than 140/90 mmHg. Blood pressure is elevated. Restart hydralazine. Change dose of 10 mg 3 times daily to 50 mg 3 times daily. Continue with home dose isosorbide 50 mg every afternoon. If needed will add amlodipine. Uptitrate as for goal blood pressure. IV hydralazine 10 mg every 4 hour as needed for systolic blood pressure more than 160 mmHg. (4) Sepsis: (5) Hypertension: Qualifiers: Hypertension type: essential hypertension Qualified Code(s): I10 - Essential (primary) hypertension (6) Prostate CA: (7) Compression fracture of L1 lumbar vertebra: Qualifiers: Encounter type: initial encounter Qualified Code(s): S32.010A - Wedge compression fracture of first lumbar vertebra, initial encounter for closed fracture (8) Lewy body dementia: Qualifiers: Dementia behavioral or psychological symptom: with mood disturbance Dementia severity: severe Qualified Code(s): G31.83 - Neurocognitive disorder with Lewy bodies; F02.C3 - Dementia in other diseases classified elsewhere, severe, with mood disturbance (9) Shy-Drager syndrome: (10) Fever: (11) CAD (coronary artery disease): Qualifiers: Coronary Disease-Associated Artery/Lesion type: [place] artery Hoh vs. transplanted heart: [place] heart Associated angina: with unspecified form of angina Qualified Code(s): I25.119 - Atherosclerotic heart disease of [place] coronary artery with unspecified angina pectoris (12) Goals of care, counseling/discussion: Plan Sepsis: Present on admission. Criteria met with tachypnea tachycardia fever endorgan damage requiring oxygen Patient will get judicious IV fluids 2 L IV antibiotics given Consideration given to UTI as well Will keep patient on ceftriaxone for now Parkinson's: Shy-Drager,/Lewy body dementia Patient does not speak very well in the state of sickness as per the daughter, patient currently is mute No active sign of stroke Patient was put on hospice he does have history of prostate cancer, Goals of care discussion: Discussed about the CODE STATUS with the daughter. Discussed about hospice care status. As per the daughter patient was recently placed on hospice so that patient can get help with recurrent UTIs with urinalysis and urine culture. We discussed hospice is for patient for home we know that life expectancy is 6 months or less due to chronic health conditions which unfortunately cannot be treated. Discussed about quality of life versus quantity of life. Discussed unfortunately patient seem to have significant Lewy body dementia, Parkinson's which is making his quality of life extremely poor with recurrent UTI and high risk of aspiration. Discussed that unfortunately there are only 2 options going forward. 1 would be to continue care with admissions for UTI, possible aspiration pneumonia or any acute illness as needed while patient remains DNR/DNI which showed help him with his quantity of life and hopefully with quality of life as well versus second option being continuing of hospice care while continuing his oral medications and if and when patient gets sick again to continue care with comfort as an outpatient while nature takes its own course which could mean that patient would . Daughter would like to discuss further with her sister who is also the DPOA before making a decision. Plan for family meeting on 12/25. DNR/DNI Speech therapy. Advance diet accordingly. Protonix OPD prophylaxis Heparin 5000 Q12 hourly for DVT prophylaxis Attestations Medical Necessity Statement*: Requires further hospitalization for management of hypoxia in setting of COVID-19, sepsis, hypertensive urgency manage elderly with advanced dementia, Parkinson's further goals of care discussions are done Diagnoses Hypoxemia R09.02 COVID-19 U07.1 Hypertensive emergency I16.1 Sepsis A41.9 Essential hypertension I10 Hypertension type: essential hypertension Prostate CA C61 Compression fracture of L1 vertebra, initial encounter S32.010A Encounter type: initial encounter Severe Lewy body dementia with mood disturbance G31.83; F02.C3 Dementia behavioral or psychological symptom: with mood disturbance Dementia severity: severe 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 transplanted heart: [place] heart Associated angina: with unspecified form of angina Goals of care, counseling/discussion Z71.89
[2024-12-24] MEDS: hyDRALAzine 10 mg Tablet 50 MG PO (20:24)
[2024-12-24] MEDS: quetiapine 25 mg Tablet PO (20:24)
[2024-12-24] MEDS: prazosin 1 mg Capsule 3 MG PO (20:24)
[2024-12-24] MEDS: dexamethasone 10 mg/mL INJ 6 MG IVP (20:24)
[2024-12-25] VITALS: BP 162/74; PULSE 77; RESP 23; TEMP 37.1; O2SAT 91
[2024-12-25 04:00] VITALS: BP 176/81; PULSE 62; RESP 21; TEMP 36.9; O2SAT 93
[2024-12-25 05:28] LABS: Hematocrit 35.6 % (37-53); Lymphocytes # 0.5 10^3/uL (0.8-4.8); Lymphocytes % 18.6 %; Mean Corpuscular HGB Conc 33.4 g/dL (30-55); Mean Corpuscular Hemoglobin 31.8 pg (27-33); Mean Corpuscular Volume 95.2 fl (82-101); Mean Platelet Volume 11.5 fL (7.4-10.4); Monocytes # 0.4 10^3/uL (0.2-0.9); Neutrophils # 1.94 10^3/uL (1.8-7.7); Nucleated Red Blood Cells % 0 %; Platelet Count 118 10^3/cmm (157-399); Red Blood Count 3.74 10^6/uL (3.85-5.65); Red Cell Distribution Width 12.9 % (12.1-15.1); White Blood Count 2.85 10^3/uL (3.29-11.43)
[2024-12-25 06:16] LABS: Magnesium 2.1 mg/dL (1.7-2.3)
[2024-12-25 06:19] LABS: Alanine Aminotransferase 17 U/L (0-41); Albumin Level 3.3 g/dL (3.5-5.2); Alkaline Phosphatase 104 U/L (40-130); Anion Gap 15.7 (5-19); Aspartate Amino Transferase 33 U/L (0-40); Blood Urea Nitrogen 25 mg/dL (8-23); Calcium 8.4 mg/dL (8.5-10.5); Carbon Dioxide 21 mmol/L (22-29); Chloride 108 mmol/L (98-107); Creatinine Clr Calc Pharmacy 68.9282; Folate Level 12.6 ng/mL (4.5-32.2); Globulin 2.3 g/dL (1.3-4.6); Glucose 126 mg/dL (65-115); Osmolality Calculated 298 mOsm/kg (285-295); Potassium 3.7 mmol/L (3.5-5.1); Sodium 141 mmol/L (136-145); Total Bilirubin 0.4 mg/dL (0.15-1.2); Total Protein 5.6 g/dL (6.6-8.7)
[2024-12-25] MEDS: aspirin 81 mg EC Tablet PO (06:43)
[2024-12-25 07:38] VITALS: BP 204/95; PULSE 60; RESP 18; TEMP 36.7; O2SAT 95
[2024-12-25] MEDS: cefTRIAXone 1,000 mg SDV 1000 MG IVP (09:12)
[2024-12-25] MEDS: sennosides-docusate Tablet 1 TAB PO (09:13)
[2024-12-25] MEDS: carbidopa-levodopa 25-100mg Tablet 0.5 EACH PO (09:13)
[2024-12-25] MEDS: hyDRALAzine 10 mg Tablet 50 MG PO (09:13)
[2024-12-25] MEDS: hyDRALAzine 20 mg/mL INJ 1 mL 10 MG IVP (09:14)
[2024-12-25 09:30] VITALS: PULSE 72; RESP 18; O2SAT 96
[2024-12-25] MEDS: remdesivir 100 MG in sodium chloride 0.9% (100 ml) 80 ML IV (10:55)
[2024-12-25] MEDS: ondansetron 2 mg/ML SDV 2 mL 4 MG IVP (11:30)
[2024-12-25] MEDS: heparin 5,000 unit/mL INJ 1 mL 5000 UNIT SUBCUT (11:31)
[2024-12-25] MEDS: pantoprazole DR 40 mg Tablet PO (11:31)
[2024-12-25 11:46] VITALS: BP 185/84; PULSE 69; RESP 14; TEMP 36.6; O2SAT 94
--- NOTE | 2024-12-25 13:35 | P.DS_ITS ---
Discharge Providers Date of Admission: 12/21/24 20:31 Date of Discharge: December 25, 2024 Attending Provider at Admission: Smitha Becker MD Attending Provider at Discharge: Eleno Neely MD Primary Care Provider: Minnie Coello MD Diagnoses at Discharge Discharge Diagnosis (1) Hypoxemia: Status: Acute (2) COVID-19: Status: Acute (3) Hypertensive emergency: Status: Acute (4) Sepsis: Status: Acute (5) Hypertension: Status: Acute Qualifiers: Hypertension type: essential hypertension Qualified Code(s): I10 - Essential (primary) hypertension (6) Prostate CA: Status: Acute Permanent problem details: Radioactive seed implant 2009 (7) Compression fracture of L1 lumbar vertebra: Status: Acute Qualifiers: Encounter type: initial encounter Qualified Code(s): S32.010A - Wedge compression fracture of first lumbar vertebra, initial encounter for closed fracture (8) Lewy body dementia: Status: Acute Qualifiers: Dementia behavioral or psychological symptom: with mood disturbance Dementia severity: severe Qualified Code(s): G31.83 - Neurocognitive disorder with Lewy bodies; F02.C3 - Dementia in other diseases classified elsewhere, severe, with mood disturbance (9) Shy-Drager syndrome: Status: Acute (10) Fever: Status: Acute (11) CAD (coronary artery disease): Status: Acute Qualifiers: Coronary Disease-Associated Artery/Lesion type: [place] artery [place] vs. transplanted heart: [place] heart Associated angina: with unspecified form of angina Qualified Code(s): I25.119 - Atherosclerotic heart disease of [place] coronary artery with unspecified angina pectoris (12) Goals of care, counseling/discussion: Status: Acute Reason for Visit Reason for Visit: hypoxia ams Brief History: History as per HPI: Renny Matos is a 84 year old male presented from [facility], daughters at the bedside stating that patient gets help from hospice care nurse, independent [facility] care(to prevent him to going to intermediate), nursing staff from the [facility] [place], has been sick for last 3 days with generalized weakness fatigue, poor p.o. intake and mutism. Patient had low-grade fever 100.0, worsening of dehydration, hypoxia prompted his visit to the ER. In the ER he has been diagnosed with COVID-19. Patient has had high-grade fever, requiring 3.5 L of oxygen at the time of evaluation, as per the daughter whenever he gets sick his dementia would get worse and he will stop talking otherwise he is able to carry out conversation, they have not noticed any focal deficit. Patient does minimal physical therapy, as per the daughter he eats regular diet with thickened liquid. Patient is DNR/DNI. Daughter is requesting if we can treat him for COVID-19 with IV antiviral medications. Daughter is stating that hospice service was recommended by OR, it was secondary to advanced Parkinson features. Patient has been at the assisted living facility for last 2 years Clinically patient looks dehydrated, he would meet sepsis criteria with tachypnea tachycardia high lactic acid endorgan damage requiring oxygen Possibility of UTI Patient will get 2 L IV fluid bolus, etiology seems to be viral, however he has received linezolid and cefepime in the ER secondary to concern related to UTI Clinically patient looks dehydrated Patient is hypertensive Patient not able to provide any history, daughter stating that whenever he gets sick he would become mute Hospital Course Hospital Course Patient was admitted to the hospital further evaluation and management of hypoxia with concerns for COVID-19 and aspiration pneumonia. He was started on treatment with IV remdesivir and dexamethasone along with nebulization. At first he was requiring 3 to 4 L of oxygen supplementation which is down to 1 L now. He has finished a 5-day course of remdesivir. He was seen by speech therapist and diet was advanced accordingly. Patient is at high risk of aspiration pneumonia given his poor mentation due to Lewy body dementia. He was found to have elevated blood pressures for which his antihypertensives have been adjusted. Given his advanced age, baseline severe Lewy body dementia, Parkinson's with the possibility of patient being on hospice prior to admission goals of care discussions were done in detail with patient's DPOA/daughter was at bedside. We discussed hospice is for patient for home we know that life expectancy is 6 months or less due to chronic health conditions which unfortunately cannot be treated. Discussed about quality of life versus quantity of life. Discussed unfortunately patient seem to have significant Lewy body dementia, Parkinson's which is making his quality of life extremely poor with recurrent UTI and high risk of aspiration. Discussed that unfortunately there are only 2 options going forward. 1 would be to continue care with admissions for UTI, possible aspiration pneumonia or any acute illness as needed while patient remains DNR/DNI which showed help him with his quantity of life and hopefully with quality of life as well versus second option being continuing of hospice care while continuing his oral medications and if and when patient gets sick again to continue care with comfort as an outpatient while nature takes its own course which could mean that patient would . After discussion daughter decided for patient to be discharged with hospice care. Physical Exam Narrative: General: Chronically sick appearing, AO x 1 to 2, no acute distress, on nasal cannula HEENT: PERRLA, pupils bilaterally equal and reactive Chest: Bilateral bronchial breath sounds all over lung bailey with occasional rhonchi, cough present present in right lower zone CVS: S1-S2 regular, no murmurs, no tachycardia, no gallops, no rubs Abdomen: Soft, nontender, no organomegaly, bowel sounds present Neuro: No focal deficits, no facial deformity, Discharge Data Studies Completed and Pending Completed Studies During Hospitalization Category Date Time Status CT shoulder LT wo con* [id number] Routine Cat Scan 12/23/24 08:35 Completed XR chest 1V portable [id number] Routine Exams 12/24/24 08:00 Completed XR chest 1V portable [id number] Stat Exams 12/21/24 17:19 Completed XR shoulder LT min 2V* [id number] Routine Exams 12/22/24 16:41 Completed US venous duplex upper extremity bilater [CV venous Ultrasound 12/23/24 13:27 [place] [id number]] Routine Pending at discharge Category Date Time Status Blood Culture Stat Lab 12/21/24 18:02 Results MAG [Magnesium] AM LABS Lab 12/26/24 04:00 Ordered MAG [Magnesium] AM LABS Lab 12/27/24 04:00 Ordered Urine Culture Stat Lab 12/23/24 23:53 Results Radiology Impressions Shoulder X-Ray 12/22/24 16:41 IMPRESSION: 1. Severe glenohumeral osteoarthritis. Question anterior glenohumeral subluxation. CT may be helpful for further detail if clinically warranted. Shoulder CT 12/23/24 08:35 IMPRESSION: 1. No acute fracture or dislocation of the glenohumeral joint. 2. Severe degenerative disease of the glenohumeral and acromioclavicular joints. Venous Duplex 12/23/24 13:27 IMPRESSION: No sonographic evidence of deep venous thrombosis. Chest X-Ray 12/24/24 08:00 IMPRESSION: 1. RIGHT upper lobe increased attenuation at the site of prior rib fractures. This may be a pulmonary contusion or developing pneumonia. If this is a pulmonary contusion this may represent a significant lung injury related to the rib fractures. No pneumothorax identified. Recommend follow-up chest CT. Laboratory Results WBC 2.85 10^3/uL (3.29-11.43) L 12/25/24 05:03 RBC 3.74 10^6/uL (3.85-5.65) L 12/25/24 05:03 Hgb 11.90 g/dL (11.27-16.99) 12/25/24 05:03 Hct 35.6 % (37-53) L 12/25/24 05:03 MCV 95.2 fl (82-101) 12/25/24 05:03 MCH 31.8 pg (27-33) 12/25/24 05:03 MCHC 33.4 g/dL (30-55) 12/25/24 05:03 RDW 12.9 % (12.1-15.1) 12/25/24 05:03 Plt Count 118 10^3/cmm (157-399) L 12/25/24 05:03 MPV 11.5 fL (7.4-10.4) H 12/25/24 05:03 Neut % (Auto) 68.0 % 12/25/24 05:03 Lymph % (Auto) 18.6 % 12/25/24 05:03 [place] % (Auto) 13.0 % 12/25/24 05:03 Eos % (Auto) 0.0 % 12/25/24 05:03 Baso % (Auto) 0.0 % 12/25/24 05:03 Neut # (Auto) 1.94 10^3/uL (1.8-7.7) 12/25/24 05:03 Lymph # (Auto) 0.5 10^3/uL (0.8-4.8) L 12/25/24 05:03 [place] # (Auto) 0.4 10^3/uL (0.2-0.9) 12/25/24 05:03 Eos # (Auto) 0.0 10^3/uL (0.0-0.8) 12/25/24 05:03 Baso # (Auto) 0.0 10^3/uL (0.0-0.1) 12/25/24 05:03 Nucleated RBC % (auto) 0 % 12/25/24 05:03 Nucleated RBCs # 0.0 /100WBC 12/25/24 05:03 Sodium 141 mmol/L (136-145) 12/25/24 05:03 Potassium 3.7 mmol/L (3.5-5.1) 12/25/24 05:03 Chloride 108 mmol/L (98-107) H 12/25/24 05:03 Carbon Dioxide 21 mmol/L (22-29) L 12/25/24 05:03 Anion Gap 15.7 (5-19) 12/25/24 05:03 BUN 25 mg/dL (8-23) H 12/25/24 05:03 Creatinine 0.7 mg/dL (0.7-1.2) 12/25/24 05:03 GFR Calculation Not Reportable 12/25/24 05:03 Glucose 126 mg/dL (65-115) H 12/25/24 05:03 Estimat Average Glucose 108 12/24/24 04:56 Hemoglobin A1c 5.4 % (4.0-6.0) 12/24/24 04:56 Calculated Osmolality 298 mOsm/kg (285-295) H 12/25/24 05:03 Lactic Acid 1.6 mmol/L (0.5-2.2) 12/22/24 04:16 Lactic Acid (Sepsis) 3.2 mmol/L (0.5-2.2) H 12/21/24 20:07 Calcium 8.4 mg/dL (8.5-10.5) L 12/25/24 05:03 Phosphorus 3.4 mg/dL (2.5-4.5) 12/22/24 04:16 Magnesium 2.1 mg/dL (1.7-2.3) 12/25/24 05:03 Iron 84 ug/dL (59-158) 12/24/24 04:56 TIBC 184 mcg/dl 12/24/24 04:56 % Saturation 45.6 % (20-50) 12/24/24 04:56 Unsat Iron Binding 100 ug/dL (112-347) L 12/24/24 04:56 Total Bilirubin 0.4 mg/dL (0.15-1.2) 12/25/24 05:03 AST 33 U/L (0-40) 12/25/24 05:03 ALT 17 U/L (0-41) 12/25/24 05:03 Alkaline Phosphatase 104 U/L (40-130) 12/25/24 05:03 Troponin T Baseline 31 ng/L (0-15) H 12/21/24 18:01 Troponin T 120 Minute 28.24 ng/L (0-15) H 12/21/24 20:07 Delta Troponin T -2.76 ABS# (0-10) L 12/21/24 20:07 C-Reactive Protein 24.8 mg/L (0.0-4.9) H 12/22/24 04:16 Total Protein 5.6 g/dL (6.6-8.7) L 12/25/24 05:03 Albumin 3.3 g/dL (3.5-5.2) L 12/25/24 05:03 Globulin 2.3 g/dL (1.3-4.6) 12/25/24 05:03 Vitamin B12 400 pg/mL (232-1245) 12/24/24 04:56 Folate 12.6 ng/mL (4.5-32.2) 12/25/24 05:03 Procalcitonin 0.09 ng/mL (0-0.5) 12/21/24 18:01 TSH 1.55 uIU/mL (0.27-4.20) 12/24/24 04:56 Urine Color Yellow (Yellow) 12/21/24 17:47 Urine Appearance Clear (CLEAR) 12/21/24 17:47 Urine pH 5.0 (5-7) 12/21/24 17:47 Ur Specific [place] 1.023 (1.005-1.030) 12/21/24 17:47 Urine Protein Trace (Negative) A 12/21/24 17:47 Urine Glucose (UA) Negative (Normal) 12/21/24 17:47 Urine Ketones Negative (Negative) 12/21/24 17:47 Urine Blood Negative (Negative) 12/21/24 17:47 Urine Nitrate Positive (Negative) A 12/21/24 17:47 Urine Bilirubin Negative (Negative) 12/21/24 17:47 Urine Urobilinogen 1.0 mg/dL (Negative) 12/21/24 17:47 Ur Leukocyte Esterase Negative (Negative) 12/21/24 17:47 Urine RBC 0-2 /hpf (0-2) 12/21/24 17:47 Urine WBC 0-5 /hpf (0-5) 12/21/24 17:47 Ur Squamous Epith Cells 0-5 /hpf (0-5) 12/21/24 17:47 Amorphous Sediment Not Reportable 12/21/24 17:47 Urine Bacteria 1+ /hpf (NONE) H 12/21/24 17:47 Hyaline Casts 3.71 /lpf 12/21/24 17:47 Coronavirus (PCR) Positive (Negative) A 12/21/24 17:47 Influenza A (PCR) Negative (Negative) 12/21/24 17:47 Influenza Type B (PCR) Negative (Negative) 12/21/24 17:47 RSV (PCR) Negative (Negative) 12/21/24 17:47 Vitals Last Vital Signs Temp 97.9 F 12/25/24 11:46 Pulse 69 12/25/24 11:46 Resp 14 12/25/24 11:46 BP 185/84 12/25/24 11:46 Pulse Ox 94 12/25/24 11:46 O2 Del Method Nasal Cannula 12/25/24 11:46 O2 Flow Rate 1 12/25/24 09:30 Discharge Plan Discharge Patient Disposition: Hospice - Home Condition: Stable Prescriptions: New hydralazine 50 mg tablet 75 mg PO TID 30 Days Qty: 135 0RF dexamethasone 6 mg tablet 6 mg PO DAILY Qty: 5 0RF Continued nitroglycerin 0.4 mg tablet, sublingual 0.4 mg sublingual Q5M PRN (Reason: chest pain) Qty: 25 3RF Rx Instructions: do not exceed 3 doses per episode (DME) Radial Gutter Fast Form See Rx Instructions .Route .MEDSUPPLY Qty: 1 0RF Rx Instructions: As directed Myrbetriq 25 mg tablet extended release 24 hr 25 mg PO DAILY Qty: 90 3RF Celexa 40 mg tablet 20 mg PO DAILY 30 Days Qty: 90 5RF cholecalciferol (vitamin D3) [Vitamin D3] 25 mcg (1,000 unit) Tablet 75 mcg PO QAM isosorbide mononitrate 30 mg tablet extended release 24 hr 15 mg PO QPM aspirin 81 mg Tablet,Delayed Release (Dr/Ec) 81 mg PO QAM prazosin 1 mg capsule See Rx Instructions .ROUTE .COMPLEX Rx Instructions: TAKE 1 CAPSULE BY MOUTH ONCE DAILY AT BEDTIME WITH 2 MG CAPSULE TO EQUAL 3 MG DOSE FOR NIGHT TERRORS prazosin 2 mg capsule See Rx Instructions .ROUTE .COMPLEX Rx Instructions: TAKE 1 CAPSULE BY MOUTH ONCE DAILY AT BEDTIME WITH 1 MG TO EQUAL 3 MG DOSE FOR NIGHT TERRORS quetiapine 25 mg Tablet 25 mg PO BEDTIME acetaminophen [Tylenol] 325 mg Tablet 325 mg PO QID PRN (Reason: Fever Or Pain) ibuprofen [Advil] 200 mg Tablet 200 mg PO Q6H PRN (Reason: Fever Or Pain) carbidopa-levodopa 25-100 mg Tablet 1 tab PO QAM melatonin 10 mg Tablet 10 mg PO DAILY Probiotic Plus and Cranberry 250-30-39.5 mg Capsule 1 cap PO DAILY famotidine [Pepcid] 20 mg Tablet 20 mg PO BID PRN (Reason: Heartburn) pantoprazole 40 mg tablet,delayed release (DR/EC) 40 mg PO DAILY@12 polyvinyl alcohol [Artificial Tears (polyvin alc)] 1.4 % Drops 2 drp OPHTHALMIC (EYE) QID PRN (Reason: Dry Eye(S)) carbidopa-levodopa 25-100 mg tablet 0.5 tab PO QAM Rx Instructions: NOON AND 4 PM ondansetron 4 mg tablet,disintegrating 4 mg PO Q6H PRN (Reason: nausea and vomiting) Qty: 14 0RF diclofenac sodium [Arthritis Pain (diclofenac)] 1 % gel 4 g topical QID Qty: 100 0RF Rx Instructions: apply to single knee, ankle, foot; for foot includes sole/toes/top of foot tramadol 50 mg tablet 50 mg PO Q8H PRN (Reason: pain) Qty: 10 0RF Changed midodrine 5 mg tablet 5 mg PO TID PRN (Reason: SBP less than 100 mmhg) Qty: 90 4RF Rx Instructions: do not give last dose of day after 6PM or within 4 hrs of bedtime Discontinued hydralazine 10 mg tablet 10 mg PO TID Discharge Orders: Discharge Order (Routine); Ordered 12/25/24 Ordered By: Eleno Neely Referrals: [facility] [Outside] Minnie Coello MD [Primary Care Provider] - Discharge Diet: Advance as tolerated and As Directed Discharge Activity: Resume usual activity and Increase activity as tolerated Patient Instructions: Opioid Safety Activity Restrictions/Additional Instructions: Dysphagia level 7 diet Dexamethasone 6 mg oral daily for next 5 days. Discharge Attestations Time Spent in Discharge Care*: greater than 30 min Specific Discharge Activities: educating and/or supporting family/caregiver, discussing with pcp/other providers, discussing with case mgr/social workers/dc planners, documenting/other paperwork and evaluating patient/reviewing data Status at Discharge: Cognitive status at discharge: moderately impaired cognition , Behavioral status at discharge: cooperative , Functional status at discharge: other assisted ambulation , Overall status at discharge: patient is back to baseline Quality Metrics Clinical Quality Measures [ No reported AMI, CVA or VTE this stay] Coding Level of Care Code 22279 Total time (in minutes) for Discharge: 60 Diagnoses Hypoxemia R09.02 COVID-19 U07.1 Hypertensive emergency I16.1 Sepsis A41.9 Essential hypertension I10 Hypertension type: essential hypertension Prostate CA C61 Compression fracture of L1 vertebra, initial encounter S32.010A Encounter type: initial encounter Severe Lewy body dementia with mood disturbance G31.83; F02.C3 Dementia behavioral or psychological symptom: with mood disturbance Dementia severity: severe 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 transplanted heart: [place] heart Associated angina: with unspecified form of angina Goals of care, counseling/discussion Z71.89
--- NOTE | 2024-12-25 14:56 | PC.NURSE ---
Discharge Note Patient discharged to [[facility]] via [ready transport] accompanied by [daughter]. Discharge instructions reviewed with patient and/or sales and merchandising representative. Mobile pharmacy medications and/or prescriptions provided. Belongings/home medications returned.
[2024-12-25 14:57] VITALS: BP 185/84; PULSE 69; RESP 14; TEMP 36.6; O2SAT 94
== END 2024-12-25 15:01 | disposition hospice, home (50) | DRG 871 ==
LOC: ER 19:56 → MEDSURG 21:03
PROVIDERS: Internal Medicine; Admitting Provider Internal Medicine; Emergency Provider Emergency Medicine; PCP Family Medicine; Visit Provider Student in an Organized Health Care Education/Training Program
DX: A41.9 Sepsis, unspecified organism (principal); J69.0 Pneumonitis due to inhalation of food and vomit; U07.1 COVID-19; I16.1 Hypertensive emergency; F02.C3 Dementia in other diseases classified elsewhere, severe, with mood disturbance; G90.3 Multi-system degeneration of the autonomic nervous system; E87.20 Acidosis, unspecified; N39.0 Urinary tract infection, site not specified; F05 Delirium due to known physiological condition; R09.02 Hypoxemia; I10 Essential (primary) hypertension; Z85.46 Personal history of malignant neoplasm of prostate; G31.83 Neurocognitive disorder with Lewy bodies; I25.10 Atherosclerotic heart disease of native coronary artery without angina pectoris; Z95.5 Presence of coronary angioplasty implant and graft; E86.0 Dehydration; Z92.3 Personal history of irradiation; M19.012 Primary osteoarthritis, left shoulder; G89.29 Other chronic pain; I25.2 Old myocardial infarction; K59.09 Other constipation; G47.30 Sleep apnea, unspecified; Z79.891 Long term (current) use of opiate analgesic; Z79.82 Long term (current) use of aspirin; Z66 Do not resuscitate
CPT/HCPCS: 36415; 71045; 73030; 73200; 80048; 80053; 81001; 82607; 82746; 83036; 83540; 83550; 83605; 83735; 84100; 84145; 84443; 84484; 85025; 86140; 87040; 87086; 87637; 92610; 93005; 93970; 96365; 96372; 96375; 97161; 99285; J0131; J0248; J0360; J0692; J0696; J1100; J1644; J2020; J2405; J7030; J8540

== ENCOUNTER 2025-01-04 10:39 | Inpatient (IN) | payer OTHER, SELFPAY ==
[2025-01-04] VITALS (76 sets, daily range): BP systolic 94–169; BP diastolic 59–93; PULSE 75–195; RESP 17–57; TEMP 36.5–38.9; O2SAT 91–98
--- NOTE | 2025-01-04 10:45 | CT_ITS ---
WS: [id number] CT HEAD TECHNIQUE: Noncontrast CT of the head obtained from the skullbase to the vertex. CLINICAL INFORMATION: ams COMPARISON: 05/23/2024 DLP: 1097.[address] scans at [facility] use at least one of these dose optimization techniques: automated exposure control; mA and/or kV adjustment per patient size (includes targeted exams where dose is matched to clinical indication); or iterative reconstruction. FINDINGS: No evidence of intracranial hemorrhage or mass effect. Ventricular system and basal cisterns are patent. Moderate small vessel changes with moderate parenchymal volume loss. No extra-axial fluid collections. No evidence of mass or mass effect. Vascular calcification. Paranasal sinuses and mastoid air cells are well aerated. .Normal visualized soft tissues. CT/CT head wo con* [id number] IMPRESSION: 1. No evidence of intracranial hemorrhage or mass effect. 2. No acute intracranial findings.
--- NOTE | 2025-01-04 10:45 | XR_ITS ---
WS: [id number] XR chest 1V portable [id number] REASON FOR EXAM: fever FINDINGS: Compared to the previous examination of 12/24/2024, the opacities in the mid lateral right lung field have partially resolved with some remaining residual opacity. Again are noted the posterior rib fractures 4 through 6. The lungs are hypoexpanded and there are opacities in the left lower lung and obscuration of the left costophrenic angle. No other interval change or new finding is noted. XR/XR chest 1V portable [id number] IMPRESSION: Resolving abnormality in the right lung as above. New findings in the left lower lobe which could represent subacute pneumonitis and/or atelectasis.
--- NOTE | 2025-01-04 10:48 | ECG_ITS ---
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: : 1940 Requested By: Catrachito Tony Order Number: [id number] Reading MD: JETHRO JOHNSON Measurements Intervals [place] Rate: 101 P: 1 OK: 145 QRS: -45 QRSD: 130 T: 57 QT: 359 QTc: 465 Interpretive Statements SINUS TACHYCARDIA RIGHT BUNDLE BRANCH BLOCK [120+ ms QRS DURATION, UPRIGHT V1, 40+ ms S IN I/aVL/V4/V5/V6] LEFT ANTERIOR FASCICULAR BLOCK [QRS AXIS <= -45, QR IN I, RS IN II] MODERATE VOLTAGE CRITERIA FOR LVH, CONSIDER NORMAL VARIANT [MEETS CRITERIA IN ONE OF: R(aVL), S(V1), R(V5), R(V5/V6)+S(V1)] POSSIBLE SEPTAL MYOCARDIAL INFARCTION , PROBABLY OLD [30 ms Q WAVE IN V1/V2] Compared to ECG 12/21/2024 17:24:58 Left anterior fascicular block now present Sinus rhythm no longer present Left-axis deviation no longer present Myocardial infarct finding still present Electronically Signed On 01-05-2025 19:18:33 CHIEF GROWTH OFFICER by JETHRO JOHNSON [email or web address]
--- NOTE | 2025-01-04 10:56 | W.ED.AMS ---
HPI - Altered Mental Status General: Chief Complaint: Altered Mental Status Stated Complaint: ams - fever Time Seen by Provider: 01/04/25 10:40 Source: patient Mode of arrival: ambulatory Limitations: no limitations History of Present Illness: 84-year-old male who is here from [place] per EMS patient's been having fever today is febrile here 102 he is also been having increasing shortness of breath does not wear oxygen there is requiring 4 L here and has became more altered than normal. Patient recently was admitted here with COVID. Patient is quite altered here not able to answer any questions. Related Data Home Medications ?Medication ?Instructions ?Recorded ?Confirmed cholecalciferol (vitamin D3) 25 75 mcg PO QAM 03/07/21 01/04/25 mcg (1,000 unit) tablet (Vitamin D3) aspirin 81 mg tablet,delayed 81 mg PO QAM 06/30/22 01/04/25 release isosorbide mononitrate 30 mg 15 mg PO QPM 06/30/22 01/04/25 tablet,extended release 24 hr famotidine 20 mg tablet (Pepcid) 20 mg PO BID PRN Heartburn 03/28/23 01/04/25 pantoprazole 40 mg tablet,delayed 40 mg PO .COMPLEX 03/28/23 01/04/25 release carbidopa 25 mg-levodopa 100 mg 0.5 tab PO QAM 04/06/24 01/04/25 tablet polyvinyl alcohol 1.4 % eye drops 2 drp ophthalmic (eye) QID PRN Dry 04/06/24 01/04/25 (Artificial Tears (polyvinyl Eye(S) alcohol)) prazosin 1 mg capsule See Rx Instructions .Route .COMPLEX 12/11/24 01/04/25 prazosin 2 mg capsule See Rx Instructions .Route .COMPLEX 12/11/24 01/04/25 carbidopa 25 mg-levodopa 100 mg 1 tab PO QAM 12/22/24 01/04/25 tablet cranberry-vit 1 cap PO DAILY 12/22/24 01/04/25 C-B.coag-FOS-L.acid-L.rham 250 mg-30 mg-39.5 mg capsule ibuprofen 200 mg tablet (Advil) 400 mg PO Q6H PRN Fever Or Pain 12/22/24 01/04/25 melatonin 10 mg tablet 10 mg PO DAILY 12/22/24 01/04/25 quetiapine 25 mg tablet 25 mg PO BEDTIME 12/22/24 01/04/25 acetaminophen 500 mg tablet 500 mg PO TID PRN Pain 01/04/25 01/04/25 (Tylenol Extra Strength) acetaminophen 650 mg rectal 650 mg [place] Q6H PRN Fever Or Pain 01/04/25 01/04/25 suppository cefdinir 300 mg capsule 300 mg PO BID 01/04/25 01/04/25 ceftriaxone 1 gram solution for 1 g IM DAILY 01/04/25 01/04/25 injection hyoscyamine sulfate 0.125 mg See Rx Instructions .Route .COMPLEX 01/04/25 01/04/25 sublingual tablet (Oscimin SL) ipratropium 0.5 mg-albuterol 3 mg 3 ml inhalation QID PRN Shortness 01/04/25 01/04/25 (2.5 mg base)/3 mL nebulization Of Breath Or Wheezing soln lidocaine (PF) 10 mg/mL (1 %) 2.1 ml IM DAILY 01/04/25 01/04/25 injection solution 10mL lorazepam 2 mg/mL oral concentrate 0.5 - 1 mg PO Q2H PRN Anxiety 01/04/25 01/04/25 morphine concentrate 100 mg/5 mL 50 mg PO Q2H PRN Pain 01/04/25 01/04/25 (20 mg/mL) oral solution Previous Rx's ?Medication ?Instructions ?Recorded nitroglycerin 0.4 mg sublingual 0.4 mg sublingual Q5M PRN chest 02/15/22 tablet pain #25 tabs mirabegron 25 mg tablet,extended 25 mg PO DAILY #90 tabs 03/15/24 release 24 hr (Myrbetriq) ondansetron 4 mg disintegrating 4 mg PO Q6H PRN nausea and 04/06/24 tablet vomiting #14 tabs citalopram 40 mg tablet (Celexa) 20 mg (1/2 x 40 mg) PO DAILY 30 08/13/24 days #90 tabs diclofenac sodium 1 % topical gel 4 g topical QID #100 grams 09/28/24 (Arthritis Pain (diclofenac)) tramadol 50 mg tablet 50 mg PO Q8H PRN pain #10 tabs 09/28/24 Radial Gutter Fast Form #1 ea 12/20/24 hydralazine 50 mg tablet 75 mg (1.5 x 50 mg) PO TID 30 days 12/25/24 #135 tabs midodrine 5 mg tablet 5 mg PO TID PRN SBP less than 100 12/25/24 mmhg #90 tabs Allergies Allergy/AdvReac Type Severity Reaction Status Date / Time hydrocodone Allergy HALLUCINATI Verified 12/20/24 11:08 ONS ropinirole Allergy ADR-Halluci Verified 12/20/24 11:08 nating rosuvastatin Allergy ADR-Muscle Verified 12/20/24 11:08 Pain zonisamide (From Zonegran) Allergy HIVES Verified 12/20/24 11:08 metoprolol AdvReac BRADYCARDIA Verified 12/20/24 11:08 Penicillins AdvReac UNKNOWN Verified 12/20/24 11:08 pravastatin AdvReac MUSCLE PAIN Verified 12/20/24 11:08 Review of Systems General: Reports: ROS unobtainable due to mental status PFSH ED PFSH: Medical History Sleep apnea Chronic constipation Dementia CAD (coronary artery disease) Hypertensive emergency Non-ST elevation UT (NSTEMI) 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 Tamia Foley. Bilateral L3-L4 hemilaminotomy/foraminotomy, with limited discectomy. Bilateral L2-L3 laminotomy/foraminotomy. S/P tonsillectomy and adenoidectomy S/P cataract extraction BILATERAL S/P cholecystectomy S/P shoulder surgery H/O elbow surgery Family History Grandmother CAD (coronary artery disease) Cancer Myocardial infarct Family/Other Hypertension Mother , at age 95 No problems noted. Father , at age 39 Blood clot associated with vein wall inflammation Social History Smoking and tobacco/nicotine status: never used tobacco/nicotine Alcohol intake: never Substance/Drug Use: never Household members: family and children Marital status: / Current occupational status: retired Physical Exam Const: COMMON NORMALS: negative for patient oriented x3 GENERAL APPEARANCE: ill appearing HENMT: COMMON NORMALS: normocephalic and atraumatic HEAD & SCALP: normocephalic and atraumatic Eye: COMMON NORMALS: conjunctivae normal CONJUNCTIVA: Yes conjunctivae normal Neck/C-Spine: COMMON NORMALS: full ROM and supple Chest: COMMONS NORMALS: normal inspection of the chest Resp: COMMON NORMALS: No retractions and No use of accessory muscles EFFORT & INSPECTION: Yes labored Cardio: COMMON NORMALS: regular rate, regular rhythm and No murmurs present (Cardio) RATE: regular rate RHYTHM: regular rhythm GI: COMMON NORMALS: Normal to inspection, nondistended, normoactive bowel sounds present, Soft to palpation, non-tender and no masses PALPATION: Yes Soft to palpation Extremity: COMMON NORMALS: normal to inspection and full ROM Neuro: COMMON NORMALS: no focal motor deficits; negative for patient oriented x3 Psych: COMMON NORMALS: cooperative; negative for mental status grossly normal Skin: COMMON NORMALS: no rashes or lesions noted and no wounds GENERAL SKIN EXAM: no rashes or lesions noted Course Vital Signs: Vital signs: Vital Signs Temperature 97.7 F 01/04/25 12:21 Pulse Rate 91 01/04/25 12:59 Respiratory Rate 29 H 01/04/25 12:59 Blood Pressure 152/78 01/04/25 12:15 Pulse Oximetry 94 01/04/25 12:59 Oxygen Delivery Me thod Nasal Cannula 01/04/25 10:46 Oxygen Flow Rate 4 01/04/25 10:46 MDM - Altered Mental Status Medical Decision Making Patient presents here from assisted living with an increased altered mental status dehydration and hypoxia he is found to have a pneumonia here and also along with acute kidney injury from dehydration I spoke to family at length he is no longer on hospice patient is DNR/DNI we will start IV antibiotics along with IV fluids I spoke to the hospitalist will admit at this time. Medical Records I reviewed the patient's medical records. Lab Data I reviewed the patient's lab results. 01/04/25 11:29 01/04/25 11:29 Radiology Impressions Chest X-Ray 01/04/25 10:45 IMPRESSION: Resolving abnormality in the right lung as above. New findings in the left lower lobe which could represent subacute pneumonitis and/or atelectasis. Head CT 01/04/25 10:45 IMPRESSION: 1. No evidence of intracranial hemorrhage or mass effect. 2. No acute intracranial findings. Laboratory Results WBC 14.34 10^3/uL (3.29-11.43) H 01/04/25 11:29 RBC 4.04 10^6/uL (3.85-5.65) 01/04/25 11:29 Hgb 13.10 g/dL (11.27-16.99) 01/04/25 11:29 Hct 42.2 % (37-53) 01/04/25 11:29 MCV 104.5 fl (82-101) H 01/04/25 11:29 MCH 32.4 pg (27-33) 01/04/25 11:29 MCHC 31.0 g/dL (30-55) 01/04/25 11:29 RDW 13.2 % (12.1-15.1) 01/04/25 11:29 Plt Count 168 10^3/cmm (157-399) 01/04/25 11:29 MPV 11.5 fL (7.4-10.4) H 01/04/25 11:29 Neut % (Auto) 89.9 % 01/04/25 11:29 Lymph % (Auto) 2.6 % 01/04/25 11:29 [place] % (Auto) 7.0 % 01/04/25 11:29 Eos % (Auto) 0.0 % 01/04/25 11:29 Baso % (Auto) 0.1 % 01/04/25 11:29 Neut # (Auto) 12.90 10^3/uL (1.8-7.7) H 01/04/25 11:29 Lymph # (Auto) 0.4 10^3/uL (0.8-4.8) L 01/04/25 11:29 [place] # (Auto) 1.0 10^3/uL (0.2-0.9) H 01/04/25 11: Eos # (Auto) 0.0 10^3/uL (0.0-0.8) 01/04/25 11: Baso # (Auto) 0.0 10^3/uL (0.0-0.1) 01/04/25 11: Nucleated RBC % (auto) 0 % 01/04/25 11: Nucleated RBCs # 0.0 /100WBC 01/04/25 11: PT 16.70 SECONDS (12.1-14.9) H 01/04/25 11: INR 1.27 (0.8-1.2) H 01/04/25 11:29 Specimen Type Arterial 01/04/25 10:48 Sample Site Brachial, left 01/04/25 10:48 ABG pH 7.28 (7.35-7.45) L 01/04/25 10:48 ABG pCO2 55.9 mmHg (35-45) H 01/04/25 10:48 ABG pO2 72.4 mmHg (80.0-100.0) L 01/04/25 10:48 ABG HCO3 26.2 mmol/L (22-26) H 01/04/25 10:48 ABG Base Excess -1.5 mmol/L (-2.0-2.0) 01/04/25 10:48 Dean Test Pos 01/04/25 10:48 Hematocrit 41.5 % (42-52) L 01/04/25 10:48 Hgb O2 Saturation 92.7 % (95-100) L 01/04/25 10:48 Carboxyhemoglobin 0.6 %THgb (0.4-20.1) 01/04/25 10:48 Methemoglobin 0.8 % (0.4-1.5) 01/04/25 10:48 Total Hemoglobin 13.5 g/dL (14-18) L 01/04/25 10:48 O2 Delivery Device Nc 01/04/25 10:48 O2 Liters/Min 2.0 % 01/04/25 10:48 Chain Builder ID [place] 01/04/25 10:48 Sodium 152 mmol/L (136-145) H 01/04/25 11: Potassium 4.5 mmol/L (3.5-5.1) 01/04/25 11:29 Chloride 112 mmol/L (98-107) H 01/04/25 11:29 Carbon Dioxide 23 mmol/L (22-29) 01/04/25 11:29 Anion Gap 21.5 (5-19) H 01/04/25 11:29 BUN 89 mg/dL (8-23) H* D 01/04/25 11:29 Creatinine 3.3 mg/dL (0.7-1.2) H 01/04/25 11:29 GFR Calculation Not Reportable 01/04/25 11:29 Glucose 134 mg/dL (65-115) H 01/04/25 11:29 Calculated Osmolality 343 mOsm/kg (285-295) H 01/04/25 11:29 Lactic Acid 1.6 mmol/L (0.5-2.2) 01/04/25 11:29 Calcium 8.6 mg/dL (8.5-10.5) 01/04/25 11: Magnesium 3.0 mg/dL (1.7-2.3) H 01/04/25 11:29 Total Bilirubin 0.6 mg/dL (0.15-1.2) 01/04/25 11:29 AST 64 U/L (0-40) H 01/04/25 11:29 ALT 72 U/L (0-41) H 01/04/25 11:29 Alkaline Phosphatase 93 U/L (40-130) 01/04/25 11:29 NT-Pro-B Natriuret Pep 1879 pg/mL (0-450) H 01/04/25 11:29 Total Protein 6.2 g/dL (6.6-8.7) L 01/04/25 11:29 Albumin 3.4 g/dL (3.5-5.2) L 01/04/25 11:29 Globulin 2.8 g/dL (1.3-4.6) 01/04/25 11: Lipase 9 U/L (13-60) L 01/04/25 11:29 Procalcitonin 1.17 ng/mL (0-0.5) H 01/04/25 11:29 TSH 0.38 uIU/mL (0.27-4.20) 01/04/25 11:29 Urine Color Dark yellow (Yellow) A 01/04/25 11:36 Urine Appearance Cloudy (CLEAR) A 01/04/25 11:36 Urine pH 5.0 (5-7) 01/04/25 11:36 Ur Specific [place] 1.022 (1.005-1.030) 01/04/25 11:36 Urine Protein Trace (Negative) A 01/04/25 11:36 Urine Glucose (UA) Negative (Normal) 01/04/25 11:36 Urine Ketones Negative (Negative) 01/04/25 11:36 Urine Blood Negative (Negative) 01/04/25 11:36 Urine Nitrate Negative (Negative) 01/04/25 11:36 Urine Bilirubin 1+ (Negative) H 01/04/25 11:36 Urine Urobilinogen 1.0 mg/dL (Negative) 01/04/25 11:36 Ur Leukocyte Esterase Negative (Negative) 01/04/25 11:36 Urine RBC 0-2 /hpf (0-2) 01/04/25 11:36 Urine WBC 0-5 /hpf (0-5) 01/04/25 11:36 Ur Squamous Epith Cells 0-5 /hpf (0-5) 01/04/25 11:36 Amorphous Sediment 2+ /hpf 01/04/25 11:36 Urine Bacteria None seen /hpf (NONE) 01/04/25 11:36 Hyaline Casts 24.82 /lpf 01/04/25 11:36 Coronavirus (PCR) Negative (Negative) 01/04/25 11:30 Influenza A (PCR) Negative (Negative) 01/04/25 11:30 Influenza Type B (PCR) Negative (Negative) 01/04/25 11:30 RSV (PCR) Negative (Negative) 01/04/25 11:30 All radiology interpretation(s) finalized by discharge Critical Care Time Critical Care Time: Critical Care Time: Yes Total Critical Care Time: 45 Attestation: The high probability of a clinically significant, sudden or life threatening deterioration of the patient's resp system(s) required my full and direct attention, intervention and personal management. The critical care time is as shown. This time is in addition to time spent performing any reported procedures but includes the following: [x] Data and vital sign review and interpretation [x] Patient assessment, examination and intervention [x] Documentation [x] Medication orders and management Discharge Plan Discharge Patient Disposition: Admitted As Inpatient Clinical Impression: Hypoxemia, Altered mental status, Pneumonia, Acute kidney injury, Dehydration Condition: Stable Coding Level of Care Code ED Commercial Construction Superintendent for Krystyna Antony
[2025-01-04 10:59] LABS: ABG PCO2 55.9 mmHg (35-45); ABG PH Result 7.28 (7.35-7.45); Arterial Blood Gas Hematocrit 41.5 % (42-52); Base Excess ABG -1.5 mmol/L (-2.0-2.0); Blood Gas Allen Test Pos; Blood Gas Operator Identificat WALCI; Blood Gas Sample Site Brachial, left; Blood Gas Sample Type Arterial; Carboxyhemoglobin 0.6 %THgb (0.4-20.1); HCO3 ABG 26.2 mmol/L (22-26); HGB O2 Sat 92.7 % (95-100); Methemoglobin 0.8 % (0.4-1.5); Oxygen Device NC; PO2 ABG 72.4 mmHg (80.0-100.0); Total Hemoglobin 13.5 g/dL (14-18)
[2025-01-04] MEDS: sodium chloride 0.9% 1,000 ML 999 ML IV ×2 (11:04→14:10)
[2025-01-04] MEDS: acetaminophen 650 mg Supp PR (11:05)
[2025-01-04 11:45] LABS: Bilirubin Urine 1+ (Negative); Blood Urine Negative (Negative); Glucose Urine UA Negative (Normal); Ketones Urine Negative (Negative); Leukocyte Esterase Urine Negative (Negative); Nitrate Urine Negative (Negative); Protein Urine Trace (Negative); Specific Gravity, Urine 1.022 (1.005-1.030); Urine Appearance Cloudy (CLEAR); Urine Color Dark Yellow (Yellow)
[2025-01-04 11:46] LABS: Basophils % 0.1 %; Hematocrit 42.2 % (37-53); Lymphocytes # 0.4 10^3/uL (0.8-4.8); Lymphocytes % 2.6 %; Mean Corpuscular Hemoglobin 32.4 pg (27-33); Mean Corpuscular Volume 104.5 fl (82-101); Mean Platelet Volume 11.5 fL (7.4-10.4); Neutrophils % 89.9 %; Nucleated Red Blood Cells % 0 %; Platelet Count 168 10^3/cmm (157-399); Red Blood Count 4.04 10^6/uL (3.85-5.65); Red Cell Distribution Width 13.2 % (12.1-15.1); White Blood Count 14.34 10^3/uL (3.29-11.43)
[2025-01-04] MEDS: VANCOMYCIN ADD-Vantage 1,000 MG in 0.9% NaCl ADD-Vantage 250 ML 250 MG IV (11:47)
[2025-01-04 11:50] LABS: Add Urine Microscopic? YES; Bacteria Urine None Seen /hpf; Hyaline Casts Urine 24.82 /lpf; RBC Urine 0-2 /hpf (0-2); Squamous Epithelial Cell Urine 0-5 /hpf (0-5); WBC Urine 0-5 /hpf (0-5)
[2025-01-04 12:02] LABS: INR 1.27 (0.8-1.2)
[2025-01-04 12:03] LABS: Amorphous Sediment Urine 2+ /hpf; UA Slide Review UA Slide Review Perf
[2025-01-04 12:05] LABS: Lactic Sepsis W/Reflex 1.6 mmol/L (0.5-2.2)
[2025-01-04 12:09] LABS: Influenza A NEGATIVE (Negative); Influenza B NEGATIVE (Negative); Respiratory Syncytial Virus Ce NEGATIVE (Negative); SARS-CoV-2 PCR NEGATIVE (Negative)
[2025-01-04 12:27] LABS: NT Pro B Type Natriuretic Pept 1879 pg/mL (0-450); Procalcitonin 1.17 ng/mL (0-0.5); Thyroid Stimulating Hormone 0.38 uIU/mL (0.27-4.20)
[2025-01-04 12:37] LABS: Alanine Aminotransferase 72 U/L (0-41); Albumin Level 3.4 g/dL (3.5-5.2); Alkaline Phosphatase 93 U/L (40-130); Anion Gap 21.5 (5-19); Aspartate Amino Transferase 64 U/L (0-40); Calcium 8.6 mg/dL (8.5-10.5); Carbon Dioxide 23 mmol/L (22-29); Chloride 112 mmol/L (98-107); Globulin 2.8 g/dL (1.3-4.6); Glucose 134 mg/dL (65-115); Lipase 9 U/L (13-60); Osmolality Calculated 343 mOsm/kg (285-295); Potassium 4.5 mmol/L (3.5-5.1); Sodium 152 mmol/L (136-145); Total Bilirubin 0.6 mg/dL (0.15-1.2); Total Protein 6.2 g/dL (6.6-8.7)
[2025-01-04 12:38] LABS: Creatinine Clr Calc Pharmacy 15.8196
[2025-01-04 12:42] LABS: Blood Urea Nitrogen 89 mg/dL (8-23)
[2025-01-04] MEDS: aztreonam 2,000 MG in sodium chloride 0.9% (plus) 100 ML 200 MG IV (12:55)
--- NOTE | 2025-01-04 13:21 | PC.NURSE ---
this nurse assumed pt care from ROMAN Booth at 1315.
--- NOTE | 2025-01-04 14:13 | ECG_ITS ---
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: : 1940 Requested By: Catrachito Tony Order Number: [id number] Reading MD: JETHRO JOHNSON Measurements Intervals [place] Rate: 158 P: 0 NE: 0 QRS: -50 QRSD: 130 T: 55 QT: 307 QTc: 498 Interpretive Statements ATRIAL FIBRILLATION WITH RAPID VENTRICULAR RESPONSE RIGHT BUNDLE BRANCH BLOCK [120+ ms QRS DURATION, UPRIGHT V1, 40+ ms S IN I/aVL/V4/V5/V6] LEFT ANTERIOR FASCICULAR BLOCK [QRS AXIS <= -45, QR IN I, RS IN II] Compared to ECG 01/04/2025 10:48:21 Sinus tachycardia no longer present Myocardial infarct finding no longer present Electronically Signed On 01-05-2025 19:18:10 COMMISSIONING MANAGER by JETHRO JOHNSON [email or web address]
--- NOTE | 2025-01-04 14:29 | PC.PHAR ---
Med List from [facility] states most Medications have been put on hold. Each one is noted .
[2025-01-04] MEDS: amiodarone 150 MG/100 ML PREMIX 400 MG IV (14:41)
--- NOTE | 2025-01-04 15:59 | PM.HP ---
Providers/Chief Complaint Admitting Physician: Dejon Álvarez MD Primary Care Provider: Minnie Coello MD Chief Complaint: ams - fever History of Present Illness Renny Matos is a 84 year old male with history of Lewy body dementia recent COVID-19 December 20 discharged home Tuesday the and did well until Tuesday when family states that he he was given alprazolam and morphine together and aspirated and has been unresponsive since then. Prior to that he had been feeding himself and drinking fluid. He was having muscle aches from the COVID so hospice was allowing him pain medications. Claribel and Yumiko who are the daughters are present at bedside and they think that the patient received too much sedating meds as above. They bring him in and request that limited interventions be performed not to include intubation or CPR but they do want him to have IV fluids and IV antibiotics. December 21 through the he was treated on the hospitalist service with 5 days of remdesivir oxygen 3 to 4 L weaned down to 1 L family at that time decided for him to be discharged to the hospice service but with the changes above they have brought him in taking him off hospice again Review of Systems Narrative: Unable to obtain from the patient who is obtunded but family states that he has respiratory distress since Tuesday worsening and has been sleeping not eating or drinking Medications/Allergies Home Medications ?Medication ?Instructions ?Recorded ?Confirmed ?Last Taken ?Type cholecalciferol (vitamin D3) 25 75 mcg PO QAM 03/07/21 01/04/25 12/31/24 09:20 History mcg (1,000 unit) tablet (Vitamin D3) nitroglycerin 0.4 mg sublingual 0.4 mg sublingual Q5M PRN chest 02/15/22 01/04/25 Unknown Rx tablet pain #25 tabs aspirin 81 mg tablet,delayed 81 mg PO QAM 06/30/22 01/04/25 12/31/24 09:20 History release isosorbide mononitrate 30 mg 15 mg PO QPM 06/30/22 01/04/25 12/29/24 20:35 History tablet,extended release 24 hr famotidine 20 mg tablet (Pepcid) 20 mg PO BID PRN Heartburn 03/28/23 01/04/25 12/11/24 History pantoprazole 40 mg tablet,delayed 40 mg PO .COMPLEX 03/28/23 01/04/25 12/31/24 11:25 History release mirabegron 25 mg tablet,extended 25 mg PO DAILY #90 tabs 03/15/24 01/04/25 12/31/24 09:20 Rx release 24 hr (Myrbetriq) carbidopa 25 mg-levodopa 100 mg 0.5 tab PO QAM 04/06/24 01/04/25 12/31/24 11:30 History tablet ondansetron 4 mg disintegrating 4 mg PO Q6H PRN nausea and 04/06/24 01/04/25 12/29/24 22:10 Rx tablet vomiting #14 tabs polyvinyl alcohol 1.4 % eye drops 2 drp ophthalmic (eye) QID PRN Dry 04/06/24 01/04/25 Unknown History (Artificial Tears (polyvinyl Eye(S) alcohol)) citalopram 40 mg tablet (Celexa) 20 mg (1/2 x 40 mg) PO DAILY 30 08/13/24 01/04/25 12/29/24 20:40 Rx days #90 tabs diclofenac sodium 1 % topical gel 4 g topical QID #100 grams 09/28/24 01/04/25 01/02/25 11:45 Rx (Arthritis Pain (diclofenac)) tramadol 50 mg tablet 50 mg PO Q8H PRN pain #10 tabs 09/28/24 01/04/25 12/21/24 14:50 Rx prazosin 1 mg capsule See Rx Instructions .Route .COMPLEX 12/11/24 01/04/25 12/29/24 20:35 History prazosin 2 mg capsule See Rx Instructions .Route .COMPLEX 12/11/24 01/04/25 12/29/24 20:35 History Radial Gutter Fast Form #1 ea 12/20/24 01/04/25 Unknown Rx carbidopa 25 mg-levodopa 100 mg 1 tab PO QAM 12/22/24 01/04/25 12/31/24 09:20 History tablet cranberry-vit 1 cap PO DAILY 12/22/24 01/04/25 12/31/24 09:20 History C-B.coag-FOS-L.acid-L.rham 250 mg-30 mg-39.5 mg capsule ibuprofen 200 mg tablet (Advil) 400 mg PO Q6H PRN Fever Or Pain 12/22/24 01/04/25 12/20/24 19:10 History melatonin 10 mg tablet 10 mg PO DAILY 12/22/24 01/04/25 12/29/24 20:40 History quetiapine 25 mg tablet 25 mg PO BEDTIME 12/22/24 01/04/25 Unknown History hydralazine 50 mg tablet 75 mg (1.5 x 50 mg) PO TID 30 days 12/25/24 01/04/25 12/31/24 23:35 Rx #135 tabs midodrine 5 mg tablet 5 mg PO TID PRN SBP less than 100 12/25/24 01/04/25 12/21/24 12:00 Rx mmhg #90 tabs acetaminophen 500 mg tablet 500 mg PO TID PRN Pain 01/04/25 01/04/25 Unknown History (Tylenol Extra Strength) acetaminophen 650 mg rectal 650 mg MA Q6H PRN Fever Or Pain 01/04/25 01/04/25 01/04/25 09:25 History suppository cefdinir 300 mg capsule 300 mg PO BID 01/04/25 01/04/25 Unknown History ceftriaxone 1 gram solution for 1 g IM DAILY 01/04/25 01/04/25 01/03/25 15:30 History injection hyoscyamine sulfate 0.125 mg See Rx Instructions .Route .COMPLEX 01/04/25 01/04/25 01/02/25 15:40 History sublingual tablet (Oscimin SL) ipratropium 0.5 mg-albuterol 3 mg 3 ml inhalation QID PRN Shortness 01/04/25 01/04/25 01/04/25 08:00 History (2.5 mg base)/3 mL nebulization Of Breath Or Wheezing soln lidocaine (PF) 10 mg/mL (1 %) 2.1 ml IM DAILY 01/04/25 01/04/25 01/03/25 15:30 History injection solution 10mL lorazepam 2 mg/mL oral concentrate 0.5 - 1 mg PO Q2H PRN Anxiety 01/04/25 01/04/25 01/01/25 02:25 History morphine concentrate 100 mg/5 mL 50 mg PO Q2H PRN Pain 01/04/25 01/04/25 01/04/25 08:00 History (20 mg/mL) oral solution Allergies Allergy/AdvReac Type Severity Reaction Status Date / Time hydrocodone Allergy HALLUCINATI Verified 12/20/24 11:08 ONS ropinirole Allergy ADR-Halluci Verified 12/20/24 11:08 nating rosuvastatin Allergy ADR-Muscle Verified 12/20/24 11:08 Pain zonisamide (From Zonegran) Allergy HIVES Verified 12/20/24 11:08 metoprolol AdvReac BRADYCARDIA Verified 12/20/24 11:08 Penicillins AdvReac UNKNOWN Verified 12/20/24 11:08 pravastatin AdvReac MUSCLE PAIN Verified 12/20/24 11:08 PFSH Acute PFSH: Medical History Sleep apnea Chronic constipation Dementia CAD (coronary artery disease) Hypertensive emergency Non-ST elevation MN (NSTEMI) 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 Tamia Foley. Bilateral L3-L4 hemilaminotomy/foraminotomy, with limited discectomy. Bilateral L2-L3 laminotomy/foraminotomy. S/P tonsillectomy and adenoidectomy S/P cataract extraction BILATERAL S/P cholecystectomy S/P shoulder surgery H/O elbow surgery Family History Grandmother CAD (coronary artery disease) Cancer Myocardial infarct Family/Other Hypertension Mother , at age 95 No problems noted. Father , at age 39 Blood clot associated with vein wall inflammation Social History Smoking and tobacco/nicotine status: never used tobacco/nicotine Alcohol intake: never Substance/Drug Use: never Household members: family and children Marital status: / Current occupational status: retired Vitals/I&O/Wt Last Vital Signs Temp 97.7 F 01/04/25 12:21 Pulse 127 H 01/04/25 14:59 Resp 22 H 01/04/25 14:45 BP 94/67 01/04/25 14:45 Pulse Ox 94 01/04/25 14:59 O2 Del Method Nasal Cannula 01/04/25 14:45 O2 Flow Rate 2 01/04/25 14:45 FiO2 35 01/04/25 14:59 01/04/25 01/04/25 01/04/25 06:59 14:59 22:59 Intake Total 1350 / 1350 100 / 1450 Balance 1350 / 1350 100 / 1450 Weight last 48 hrs Weight 66.315 kg Physical Exam Narrative: General Well-developed chronically ill-appearing male breathing through his mouth on BiPAP. Tidal volumes are 500. CV tachycardic irregular rhythm Lungs poor air movement in the bases lung sounds are otherwise clear but very diminished Abdomen diminished bowel tones soft nontender Pupils are equally round and reactive to light accommodation Patient does not follow any commands will not hold up his thumbs will not squeeze to command but he has squeezed his family members hands spontaneously also not following any commands for them Data 01/04/25 11:29 01/04/25 11:29 Micro: Microbiology 01/04/25 11:31 Blood Culture - Preliminary Blood SPECIMEN COLLECTED 01/04/25 11:29 Blood Culture - Preliminary Blood SPECIMEN COLLECTED CXR: Radiologist's impression: IMPRESSION: Resolving abnormality in the right lung as above. New findings in the left lower lobe which could represent subacute pneumonitis and/or atelectasis. EKG 1: Inorganic Chemistry Professor Interpretation: SINUS TACHYCARDIA RIGHT BUNDLE BRANCH BLOCK [120+ ms QRS DURATION, UPRIGHT V1, 40+ ms S IN I/aVL/V4/V5/V6] LEFT ANTERIOR FASCICULAR BLOCK [QRS AXIS <= -45, QR IN I, RS IN II] MODERATE VOLTAGE CRITERIA FOR LVH, CONSIDER NORMAL VARIANT [MEETS CRITERIA IN ONE OF: R(aVL), S(V1), R(V5), R(V5/V6)+S(V1)] POSSIBLE SEPTAL MYOCARDIAL INFARCTION , PROBABLY OLD [30 ms Q WAVE IN V1/V2] [email or web address] Interpretation 1: 01/04/25 10:48 ABG pH 7.28 L ABG pCO2 55.9 H ABG pO2 72.4 L ABG HCO3 26.2 H ABG Base Excess -1.5 A&P Assessment and plan (1) Acute respiratory failure with hypoxia and hypercarbia: Patient with COVID 2 weeks ago recovered down to 1 L of oxygen went home on hospice then was oversedated and aspirated. He has been lethargic and now obtunded and brought in with acute respiratory failure as well as acute kidney failure. Claribel and Yumiko the daughters directed for the patient to be removed from hospice and placed on aggressive fluid and antibiotic treatment but not to proceed with intubation or CPR if needed (2) Acute kidney injury: Aggressive IV fluids including 3 L plus maintenance fluid have been given. Repeat BMP pending (3) Aspiration pneumonia: Patient started on aztreonam and vancomycin. Will add clindamycin (4) Dehydration: Due to acute illness and poor p.o. intake see above (5) Altered mental status: History of Lewy body dementia now with delirium baseline he is able to converse with family members (6) Atrial fibrillation with rapid ventricular response: New development today. Magnesium level was 3 potassium 4.5. The patient received 3 L of fluid. Repeat labs pending. He was started on amiodarone. Antihypertensive medication such as Cardizem or metoprolol deemed not likely be tolerated due to hypotension (7) Lewy body dementia: Chronically stable able to feed himself and drink fluids ambulate with assistance and talk to family Qualifiers: Dementia behavioral or psychological symptom: with mood disturbance Dementia severity: severe Qualified Code(s): G31.83 - Neurocognitive disorder with Lewy bodies; F02.C3 - Dementia in other diseases classified elsewhere, severe, with mood disturbance PDMP PDMP Reviewed: Not Reviewed Attestations Medical Necessity Statement*: Patient will require greater than 3 midnights in the hospital to recover from this acute illness Critical Care Time: Patient is critically ill with atrial fibrillation respiratory and kidney failure requiring IV medication Coding Level of Care Code Critical Care >/= 30 minutes Diagnoses Acute respiratory failure with hypoxia and hypercarbia J96.01; J96.02 Acute kidney injury N17.9 Aspiration pneumonia J69.0 Dehydration E86.0 Altered mental status R41.82 Atrial fibrillation with rapid ventricular response I48.91 Severe Lewy body dementia with mood disturbance G31.83; F02.C3 Dementia behavioral or psychological symptom: with mood disturbance Dementia severity: severe Time Spent (min) 60
[2025-01-04] MEDS: hydrocortisone 100 mg/2 mL SDV 50 MG IVP ×2 (16:01→23:48)
[2025-01-04 16:51] LABS: Troponin T (5th) Once 73 ng/L (0-15)
[2025-01-04 17:00] LABS: Anion Gap 21.3 (5-19); Calcium 8.3 mg/dL (8.5-10.5); Carbon Dioxide 21 mmol/L (22-29); Chloride 115 mmol/L (98-107); Creatinine Clr Calc Pharmacy 18.0017; Glucose 164 mg/dL (65-115); Osmolality Calculated 346 mOsm/kg (285-295); Potassium 4.3 mmol/L (3.5-5.1); Sodium 153 mmol/L (136-145)
[2025-01-04 17:05] LABS: Blood Urea Nitrogen 87 mg/dL (8-23)
[2025-01-04 17:06] LABS: Creatine Phosphokinase 426 U/L (39-308)
[2025-01-04] MEDS: heparin 5,000 unit/mL INJ 1 mL 5000 UNIT SUBCUT (17:32)
[2025-01-04] MEDS: clindamycin 600 MG/50 ML PREMIX 100 MG IV ×2 (18:45→23:50)
--- NOTE | 2025-01-04 19:47 | PC.NURSE ---
Recieved patient from ER and assumed care. Patient is currently not following commands and seems to have a right gaze preference. Threat and corneal reflexes intact, responds to painful stimuli. Daughters at bedside they state that he is finally opening his eyes. Patient educated on where he is at and what is happening.
[2025-01-04] MEDS: diclofenac 1% Topical Gel 100 gm 1 APPLIC TOPICAL (21:57)
[2025-01-05] VITALS (43 sets, daily range): BP systolic 140–208; BP diastolic 54–112; PULSE 64–93; RESP 19–46; TEMP 36.4–38.1; O2SAT 92–99
[2025-01-05] MEDS: hyDRALAzine 20 mg/mL INJ 1 mL 10 MG IVP ×3 (00:55→22:39)
[2025-01-05] MEDS: heparin 5,000 unit/mL INJ 1 mL 5000 UNIT SUBCUT ×2 (03:46→17:23)
[2025-01-05 04:06] LABS: Basophils % 0.1 %; Hematocrit 36.6 % (37-53); Lymphocytes # 0.4 10^3/uL (0.8-4.8); Lymphocytes % 3.3 %; Mean Corpuscular HGB Conc 31.1 g/dL (30-55); Mean Corpuscular Hemoglobin 32.3 pg (27-33); Mean Corpuscular Volume 103.7 fl (82-101); Mean Platelet Volume 12.1 fL (7.4-10.4); Monocytes # 0.5 10^3/uL (0.2-0.9); Monocytes % 4.3 %; Neutrophils % 91.8 %; Nucleated Red Blood Cells % 0 %; Platelet Count 128 10^3/cmm (157-399); Red Blood Count 3.53 10^6/uL (3.85-5.65); Red Cell Distribution Width 13.3 % (12.1-15.1); White Blood Count 11.33 10^3/uL (3.29-11.43)
[2025-01-05 04:27] LABS: Anion Gap 17.7 (5-19); Calcium 8.5 mg/dL (8.5-10.5); Carbon Dioxide 22 mmol/L (22-29); Chloride 119 mmol/L (98-107); Creatinine Clr Calc Pharmacy 23.0282; Glucose 155 mg/dL (65-115); Magnesium 2.8 mg/dL (1.7-2.3); Osmolality Calculated 350 mOsm/kg (285-295); Phosphorus 2.4 mg/dL (2.5-4.5); Potassium 3.7 mmol/L (3.5-5.1); Sodium 155 mmol/L (136-145)
[2025-01-05 04:53] LABS: Blood Urea Nitrogen 87 mg/dL (8-23)
--- NOTE | 2025-01-05 05:08 | PC.NURSE ---
Addendum entered by Nuria Ashraf RN 01/05/25 05:15: 2001- Notified Hospitalist Dr. Ponce that patient converted from AF to NSR shortly after arriving from ED. Clarifying amiodarone gtt orders. Per Dr. Ponce leave it going tonight to hopefully keep him in sinus. 38- Contacted hospitalist regarding BP 194/84. Recieved orders from Dr. Ponce to give 10 mg of hydralazine IVP once. If that works we can make PRN. 126- Messaged Dr. Ponce back regarding once time hydralazine given BP went down to 158/75. Recieved orders to add Hydralazine 10mg Q6Hr prn for sbp>180 or dbp>110 mmhg. 507- Notifed Dr. Ponce that patient is unable to swallow meds and if some medications can be switched to IV. MD escamilla holding meds this morning and he will take a look at medications. Original Note: 38- Contacted hospitalist regarding BP 194/84. Recieved orders from Dr. Ponce to give 10 mg of hydralazine IVP once. If that works we can make PRN. 126- Messaged Dr. Ponce back regarding once time hydralazine given BP went down to 158/75. Recieved orders to add Hydralazine 10mg Q6Hr prn for sbp>180 or dbp>110 mmhg. 507- Notifed Dr. Ponce that patient is unable to swallow meds and if some medications can be switched to IV. MD escamilla holding meds this morning and he will take a look at medications.
[2025-01-05] MEDS: hydrocortisone 100 mg/2 mL SDV 50 MG IVP ×3 (09:20→22:38)
[2025-01-05] MEDS: clindamycin 600 MG/50 ML PREMIX 100 MG IV ×2 (09:38→17:22)
--- NOTE | 2025-01-05 10:09 | PC.CHAP ---
Pastoral Care Encounter/Spiritual Assessment Type of Contact [] Declined avionics supervisor visit [] Patient/Family/Request visit [] Outpatient visit [] Follow-up visit [] Physician referral [] Code/Alert [] Routine visit [] Staff referral [] Actively dying [] Patient sleeping [] Family support [] [] Out of room [] Palliative care [] [] Receiving care in room [] Pre-surgical visit [] Trauma [] Long length of stay [] ICU visit [x] Other:STOP Relational/Emotional Strength [] Patient feels connected with others/family/visitors/staff [] Distress [] Loneliness/isolation [] Abandonment Spirituality of Patient [] Person of Gerda [] Attends Orthodoxy of their Gerda [] Believes in Prayer [] Reads Bible or Sikhism materials [] There are Spiritual issues to be addressed Neurodiagnostic Technician Interventions [] Prayer [] Active listening [] Non-anxious presence [] Spiritual/emotional support [] Crisis/trauma care [] Spiritual counseling [] Bereavement support [] Provided bereavement packet [] Provided Bible/devotional materials [] Provided toy/stuffed animal, coloring book to patient or family member [] Provided Communion [] Anointing/Nichols [] Salvation [] Completed spiritual assessment [] Other: Impact on Illness or Injury [] Angry [] Fearful [] Anxious [] Often cries [] Exhaustion [] Unable to work [] Unable to attend temple [] Unable to walk/stand [] Unable to read [] Unable to drive [] Unable to eat/drink [] Unable to sleep [] Unable to be with family [] Patient intubated [] Other: Summary Time spent with patient
[2025-01-05] MEDS: diclofenac 1% Topical Gel 100 gm 1 APPLIC TOPICAL ×4 (10:35→21:45)
--- NOTE | 2025-01-05 12:41 | P.PN_ITS ---
Subjective 2 Subjective: Patient previously on hospice came in with pneumonia and A-fib with rapid Марина response. Daughters took him off hospice and he did receive IV fluids for acute renal failure with prerenal azotemia. Also had stress dose steroids but looking at the labs the random cortisol level was done after the hydrocortisone was given so is not valid Claribel and Yumiko are both at bedside. Claribel notes that the patient now has squeezed her hand according to direction. Patient's amiodarone drip continued overnight and now in sinus rhythm Vitals/I&O/Wt Last Vital Signs Temp 97.6 F 01/05/25 11:04 Pulse 77 01/05/25 11:29 Resp 31 H 01/05/25 11:04 BP 162/93 01/05/25 11:04 Pulse Ox 97 01/05/25 11:29 O2 Del Method BiPAP 01/05/25 11:04 O2 Flow Rate 21 01/05/25 04:00 FiO2 28 01/05/25 11:29 01/04/25 01/05/25 01/05/25 22:59 06:59 14:59 Intake Total 1350 / 2700 50 / 2750 200 / 200 Output Total 400 / 400 300 / 700 Balance 950 / 2300 -250 / 2050 200 / 200 Weight last 48 hrs Weight 65.998 kg Weight 68.674 kg Weight 66.315 kg Physical Exam 2 Narrative: General Well-developed chronically ill-appearing male breathing through his mouth on BiPAP. Tidal volumes are 500. CV tachycardic irregular rhythm Lungs poor air movement in the bases lung sounds are otherwise clear but very diminished Abdomen diminished bowel tones soft nontender Pupils are equally round and reactive to light accommodation Patient does not follow any commands will not hold up his thumbs will not squeeze to command but he has squeezed his family members hands spontaneously also not following any commands for them Urinary Catheter Management: Reaves: Cath Placed During This Visit: yes Reason for Continuing Indwelling Catheter: Required Immobilization for Trauma or Surgery or Anesthesia Urinary Catheter Date of Insertion: 01/04/25 Data 01/05/25 03:13 01/05/25 03:13 Micro: Microbiology 01/04/25 11:31 Blood Culture - Preliminary Blood NEGATIVE TO DATE 01/04/25 11:29 Blood Culture - Preliminary Blood NEGATIVE TO DATE A&P Assessment and plan (1) Acute respiratory failure with hypoxia and hypercarbia: Patient with aspiration pneumonia and at risk for respiratory failure due to Lewy body dementia patient has improved with BiPAP 14/8 overnight tidal volume still 540. Lung exam is improved with coordinated air movement now (2) Acute kidney injury: Has hypernatremia and hyperchloremia. IV fluids will be adjusted. (3) Aspiration pneumonia: Will cover with Rocephin, clindamycin. White count normalized. Antibiotics being changed so we will have to follow for continued improvement or consider aztreonam and vancomycin as given in the emergency department (4) Dehydration: Fluids to D5 half NS with 20 mill of once KCl per liter. Additional lactated Ringer's bolus today and replace potassium phosphate (5) Altered mental status: History of Lewy body dementia now with delirium baseline he is able to converse with family members (6) Atrial fibrillation with rapid ventricular response: Back in sinus rhythm heart rate 80 blood pressure elevated (7) Lewy body dementia: Chronically stable able to feed himself and drink fluids ambulate with assistance and talk to family Qualifiers: Dementia behavioral or psychological symptom: with mood disturbance D ementia severity: severe Qualified Code(s): G31.83 - Neurocognitive disorder with Lewy bodies; F02.C3 - Dementia in other diseases classified elsewhere, severe, with mood disturbance Plan Continue with supportive care including D5 fluid. Hold off on oral feedings today. Patient is not recommended for TPN PDMP PDMP Reviewed: Not Reviewed Attestations 2 Medical Necessity Statement*: Patient is on BiPAP and with acute renal failure requiring fluid hydration and time to recover. Continue with antibiotics for pneumonia anticipate 3-4 more days in hospital Coding Level of Care Code 50631 Diagnoses Acute respiratory failure with hypoxia and hypercarbia J96.01; J96.02 Acute kidney injury N17.9 Aspiration pneumonia J69.0 Dehydration E86.0 Altered mental status R41.82 Atrial fibrillation with rapid ventricular response I48.91 Severe Lewy body dementia with mood disturbance G31.83; F02.C3 Dementia behavioral or psychological symptom: with mood disturbance Dementia severity: severe Time Spent (min) 55
[2025-01-05] MEDS: cefTRIAXone 1,000 mg SDV 1000 MG IVP (14:42)
[2025-01-05] MEDS: lactated ringers 1,000 ML 500 ML IV ×2 (14:43→17:21)
[2025-01-05] MEDS: potassium phosphate (mMol PO4) 15 MMOL in sodium chloride 0.9% (100 ml) 100 ML 47 MMOL IV (16:19)
[2025-01-05] MEDS: D5-NS 0.45% + KCL 20 mEq 20 MEQ/1,000 ML BAG 125 MEQ IV (19:40)
[2025-01-06] VITALS (14 sets, daily range): BP systolic 175–193; BP diastolic 65–103; PULSE 68–84; RESP 22–40; TEMP 36.7–37.8; O2SAT 95–98
[2025-01-06] MEDS: clindamycin 600 MG/50 ML PREMIX 100 MG IV ×3 (01:54→17:48)
[2025-01-06 03:46] LABS: Lymphocytes # 0.4 10^3/uL (0.8-4.8); Lymphocytes % 4.3 %; Mean Corpuscular HGB Conc 30.9 g/dL (30-55); Mean Corpuscular Hemoglobin 32.1 pg (27-33); Mean Corpuscular Volume 104.2 fl (82-101); Monocytes # 0.4 10^3/uL (0.2-0.9); Monocytes % 4.7 %; Neutrophils # 7.62 10^3/uL (1.8-7.7); Neutrophils % 90.3 %; Nucleated Red Blood Cells % 0 %; Platelet Count 108 10^3/cmm (157-399); Red Blood Count 3.36 10^6/uL (3.85-5.65); Red Cell Distribution Width 13.6 % (12.1-15.1); White Blood Count 8.44 10^3/uL (3.29-11.43)
[2025-01-06] MEDS: D5-NS 0.45% + KCL 20 mEq 20 MEQ/1,000 ML BAG 125 MEQ IV (03:56)
[2025-01-06] MEDS: heparin 5,000 unit/mL INJ 1 mL 5000 UNIT SUBCUT ×2 (03:57→15:29)
[2025-01-06 03:59] LABS: Anion Gap 13.6 (5-19); Blood Urea Nitrogen 79 mg/dL (8-23); Calcium 8.4 mg/dL (8.5-10.5); Carbon Dioxide 23 mmol/L (22-29); Chloride 124 mmol/L (98-107); Creatinine Clr Calc Pharmacy 32.5642; Glucose 208 mg/dL (65-115); Magnesium 2.6 mg/dL (1.7-2.3); Osmolality Calculated 354 mOsm/kg (285-295); Phosphorus 2.2 mg/dL (2.5-4.5); Potassium 3.6 mmol/L (3.5-5.1); Sodium 157 mmol/L (136-145)
--- NOTE | 2025-01-06 08:09 | P.PN_ITS ---
Subjective 2 Subjective: 84-year-old male with Lewy bod y dementia had recent admission for COVID 19 on 12/21/2024. Patient was discharged on December 25, 2024 on hospice but came in with pneumonia and A-fib with rapid ventricular response. Daughters took him off hospice and he did receive IV fluids for acute renal failure with prerenal azotemia. Also had stress dose steroids but looking at the labs the random cortisol level was done after the hydrocortisone was given so is not valid Claribel and Yumiko the daughters have been attentive and optimistic regarding patient's response to direction. Patient has improved renal function and respiratory status but remains tenuous with poor p.o. intake Vitals/I&O/Wt Last Vital Signs Temp 98.9 F 01/06/25 07:29 Pulse 75 01/06/25 07:41 Resp 23 H 01/06/25 07:41 BP 187/82 01/06/25 07:29 Pulse Ox 98 01/06/25 07:41 O2 Del Method BiPAP 01/06/25 07:41 O2 Flow Rate 21 01/05/25 04:00 FiO2 28 01/06/25 07:41 01/05/25 01/06/25 01/06/25 22:59 06:59 14:59 Intake Total 2355 / 2605 1050 / 3655 Output Total 500 / 500 450 / 950 Balance 1855 / 2105 600 / 2705 Weight last 48 hrs Weight 57.334 kg Weight 65.998 kg Weight 68.674 kg Weight 66.315 kg Physical Exam 2 Narrative: General Well-developed chronically ill-appearing male breathing through his mouth on facemask preparing for transport to room 103. He is tachypneic and in respiratory distress without BiPAP CV tachycardic regular rhythm Lungs poor air movement in the bases lung sounds are otherwise clear but very diminished Abdomen diminished bowel tones soft nontender Patient does not follow any commands will not hold up his thumbs will not squeeze to command for me Urinary Catheter Management: Reaves: Cath Placed During This Visit: yes Reason for Continuing Indwelling Catheter: Acute Urinary Retention or Obstruction Urinary Catheter Date of Insertion: 01/04/25 Data 01/06/25 02:55 01/06/25 02:55 Micro: Microbiology 01/04/25 11:31 Blood Culture - Preliminary Blood NEGATIVE TO DATE 01/04/25 11:29 Blood Culture - Preliminary Blood NEGATIVE TO DATE A&P Assessment and plan (1) Acute respiratory failure with hypoxia and hypercarbia: Patient with aspiration pneumonia and at risk for respiratory failure due to Lewy body dementia patient has improved with BiPAP 04/07 but he is still not able to breathe comfortably on nasal cannula O2 or just facemask (2) Aspiration pneumonia: Will cover with Rocephin, clindamycin. White count normalized stable. Chest x-ray in the morning Speech therapy evaluation for swallow (3) Acute kidney injury: Has hypernatremia and hyperchloremia. IV fluids changed to D5 half NS yesterday. Azotemia improved but sodium benjamín (4) Hypernatremia: New this admission and attributable to severe dehydration IV fluid will be changed to D5 quarter NS with 20 mEq KCl per liter. Decrease steroids from stress dose to 4 mg a Decadron daily. BMP at 1300 and in a.m. (5) Dehydration: Fluids to D5 quarter NS with 20 mill of once KCl per liter and replace potassium phosphate (6) Altered mental status: History of Lewy body dementia now with delirium baseline he is able to converse with family members (7) Atrial fibrillation with rapid ventricular response: Back in sinus rhythm heart rate 80 blood pressure elevated resume home blood pressure medications plus add amlodipine (8) Lewy body dementia: Chronically stable able to feed himself and drink fluids ambulate with assistance and talk to family Start PT and OT Qualifiers: Dementia behavioral or psychological symptom: with mood disturbance D ementia severity: severe Qualified Code(s): G31.83 - Neurocognitive disorder with Lewy bodies; F02.C3 - Dementia in other diseases classified elsewhere, severe, with mood disturbance Plan Continue with supportive care including D5 fluid. Hold off on oral feedings today. Patient is not recommended for TPN PDMP PDMP Reviewed: Not Reviewed Attestations 2 Medical Necessity Statement*: Patient remains in the hospital requiring BiPAP as well as speech physical and occupational therapy Coding Level of Care Code Acute Code for [facility] Diagnoses Acute respiratory failure with hypoxia and hypercarbia J96.01; J96.02 Aspiration pneumonia J69.0 Acute kidney injury N17.9 Hypernatremia E87.0 Dehydration E86.0 Altered mental status R41.82 Atrial fibrillation with rapid ventricular response I48.91 Severe Lewy body dementia with mood disturbance G31.83; F02.C3 Dementia behavioral or psychological symptom: with mood disturbance Dementia severity: severe Time Spent (min) 55
--- NOTE | 2025-01-06 09:10 | PC.SLP ---
Therapist attempted to do eval. Patient was unresponsive.
[2025-01-06] MEDS: FUROsemide 10 mg/mL SDV 2mL 20 MG IVP (10:15)
[2025-01-06] MEDS: potassium phosphate (mMol PO4) 30 MMOL in sodium chloride 0.9% (100 ml) 100 ML 25 MMOL IV (10:15)
--- NOTE | 2025-01-06 10:29 | PC.NURSE ---
Provider is updated that patient is unable to take his PO medications. The 0900 PO medications were held.
[2025-01-06] MEDS: dextrose 5%-ns 0.2% + KCL 20 20 MEQ/1,000 ML BAG 150 MEQ IV (10:55)
[2025-01-06] MEDS: diclofenac 1% Topical Gel 100 gm 1 APPLIC TOPICAL ×3 (11:06→21:02)
[2025-01-06] MEDS: cefTRIAXone 1,000 mg SDV 1000 MG IVP (13:45)
[2025-01-06 14:29] LABS: Anion Gap 15.1 (5-19); Blood Urea Nitrogen 71 mg/dL (8-23); Calcium 8.4 mg/dL (8.5-10.5); Carbon Dioxide 23 mmol/L (22-29); Chloride 122 mmol/L (98-107); Glucose 138 mg/dL (65-115); Osmolality Calculated 345 mOsm/kg (285-295); Potassium 4.1 mmol/L (3.5-5.1); Sodium 156 mmol/L (136-145)
[2025-01-06 14:30] LABS: Creatinine Clr Calc Pharmacy 30.8193
[2025-01-06] MEDS: hyDRALAzine 20 mg/mL INJ 1 mL 10 MG IVP ×2 (15:29→23:41)
--- NOTE | 2025-01-06 15:45 | PC.NURSE ---
Provider is updated that patient is starting to sound wet . Nursing would like to decrease his fluids. Provider ordered to decrease to 50ml/hr.
[2025-01-06] MEDS: dextrose 5%-ns 0.2% + KCL 20 20 MEQ/1,000 ML BAG 50 MEQ IV (21:03)
[2025-01-07] VITALS (15 sets, daily range): BP systolic 120–193; BP diastolic 72–95; PULSE 72–88; RESP 18–44; TEMP 37.1–37.8; O2SAT 94–97
[2025-01-07] MEDS: clindamycin 600 MG/50 ML PREMIX 100 MG IV ×2 (01:35→09:00)
[2025-01-07] MEDS: heparin 5,000 unit/mL INJ 1 mL 5000 UNIT SUBCUT (04:17)
[2025-01-07 05:45] LABS: Anion Gap 15.9 (5-19); Blood Urea Nitrogen 60 mg/dL (8-23); Calcium 8.2 mg/dL (8.5-10.5); Carbon Dioxide 21 mmol/L (22-29); Chloride 124 mmol/L (98-107); Creatinine Clr Calc Pharmacy 35.2221; Glucose 137 mg/dL (65-115); Magnesium 2.3 mg/dL (1.7-2.3); Osmolality Calculated 343 mOsm/kg (285-295); Phosphorus 2.8 mg/dL (2.5-4.5); Potassium 3.9 mmol/L (3.5-5.1); Sodium 157 mmol/L (136-145)
[2025-01-07] MEDS: dexamethasone 10 mg/mL INJ 4 MG PO (09:01)
[2025-01-07] MEDS: diclofenac 1% Topical Gel 100 gm 1 APPLIC TOPICAL ×2 (09:17→14:05)
--- NOTE | 2025-01-07 10:55 | PC.OT ---
D/C SKILLED PT/OT EVALUATIONS PER DR. ROCA.
[2025-01-07] MEDS: cefTRIAXone 1,000 mg SDV 1000 MG IVP (14:01)
--- NOTE | 2025-01-07 14:27 | P.PN_ITS ---
Subjective 2 Subjective: Patient was examined this morning, he is alert oriented x 0, does not follow commands, grandson is at bedside normotensive on oxygen mask 4 L, respiratory rate 30s to 40s, moderate respiratory distress intercostal retractions suprasternal retractions nasal flaring, nonresponsive to sternal rub -Patient was reexamined early in the aft [facility], patient's daughters at bedside discussed with daughter patient's acute hypoxic respiratory failure, respiratory distress, likely from aspiration pneumonia, continues to have low-grade fevers yesterday evening, overall his prognosis is poor with his underlying Lewy body dementia, Parkinson's disease ? He is a DNR/DNI at this point I would recommend intubation however this is against his wishes and his goals of care ? Currently persistent respiratory distress respiratory rate 30s to 40s, appears to be in respiratory distress nasal flaring intercostal retractions suprasternal retractions, unresponsive ? Would recommend comfort care at this point, discussed comfort care detail patient's daughter voiced understanding, all questions answered Other options I discussed was continue medical interventions however given that is DNR/DNI he was on hospice, his underlying Lewy body dementia Parkinson's disease, my worry is that these medical interventions will only prolong his suffering, and will not give the result the family is hoping for as according to patient's daughter on Tuesday last week patient was ambulating, was able to carry on conversations -After discussing risk and benefits of a ll options patient's daughter would like patient's other daughter to be present before making a final decision will wait for her to come this afternoon Vitals/I&O/Wt Last Vital Signs Temp 99.4 F 01/07/25 12:00 Pulse 85 01/07/25 12:11 Resp 44 H 01/07/25 12:00 BP 193/95 01/07/25 12:00 Pulse Ox 97 01/07/25 12:11 O2 Del Method Oxymask 01/07/25 12:00 O2 Flow Rate 4 01/07/25 12:00 FiO2 40 01/07/25 12:11 01/06/25 01/07/25 01/07/25 22:59 06:59 14:59 Intake Total 1050.0 / 2410.0 50 / 2460.0 50 / 50 Output Total 750 / 750 850 / 1600 Balance 300.0 / 1660.0 -800 / 860.0 50 / 50 Weight last 48 hrs Weight 71.123 kg Weight 57.334 kg Physical Exam 2 Const: EXAM LIMITATIONS: altered mental status GENERAL APPEARANCE: in distress, lethargic, ill appearing and frail appearing NUTRITIONAL APPEARANCE: cachectic ORIENTATION/CONSCIOUSNESS: Yes confused, Yes patient obtunded and Yes lethargic; not awake, not oriented to person, not oriented to place and not oriented to time Eye: COMMON NORMALS: Equal, round and reactive pupils present PUPIL: Yes Equal, round and reactive pupils present Resp: EFFORT & INSPECTION: Yes abnormal respiratory pattern, Yes tachypneic, Yes respiratory distress, Yes Actively coughing, Yes retractions and Yes uses accessory muscles AUSCULTATION: crackles and wheezes Cardio: COMMON NORMALS: regular rhythm, S1 normal heart sound present and S2 normal heart sound present RATE: tachycardic RHYTHM: regular rhythm H EART SOUNDS: S1 normal heart sound present and S2 normal heart sound present GI: COMMON NORMALS: Normal to inspection, nondistended, normoactive bowel sounds present, Soft to palpation and non-tender PALPATION: Yes Soft to palpation Extremity: COMMON NORMALS: no pedal edema Neuro: SENSORIUM/ORIENTATION: No oriented to person, No oriented to place, No oriented to time and Yes lethargic Urinary Catheter Management: Reaves: Cath Placed During This Visit: yes Reason for Continuing Indwelling Catheter: Acute Urinary Retention or Obstruction Urinary Catheter Date of Insertion: 01/04/25 Data 01/06/25 02:55 01/07/25 05:13 A&P Assessment and plan (1) Acute respiratory failure with hypoxia and hypercarbia: - Secondary to aspiration pneumonia -Now with acute respiratory distress -Continue oxygen therapy -Continue IV antibiotics -Will await goals of care discussion and decision with patient's daughters (2) Aspiration pneumonia: (3) Acute kidney injury: - Monitor (4) Hypernatremia: - Monitor (5) Dehydration: - IV hydration (6) Altered mental status: - Likely secondary acute respiratory distress, acute hypoxic respiratory failure (7) Atrial fibrillation with rapid ventricular response: -Monitor e (8) Lewy body dementia: Chronically stable able to feed himself and drink fluids ambulate with assistance and talk to family Start PT and OT Qualifiers: Dementia behavioral or psychological symptom: with mood disturbance D ementia severity: severe Qualified Code(s): G31.83 - Neurocognitive disorder with Lewy bodies; F02.C3 - Dementia in other diseases classified elsewhere, severe, with mood disturbance (9) Goals of care, counseling/discussion: Plan Continue IV antibiotics, monitor respiratory status closely, await family goals of care discussion this afternoon PDMP PDMP Reviewed: Not Reviewed Attestations 2 Medical Necessity Statement*: Patient requires hospitalization for acute respiratory distress syndrome, acute hypoxic respiratory failure, aspiration pneumonia, goals of care discussion Diagnoses Acute respiratory failure with hypoxia and hypercarbia J96.01; J96.02 Aspiration pneumonia J69.0 Acute kidney injury N17.9 Hypernatremia E87.0 Dehydration E86.0 Altered mental status R41.82 Atrial fibrillation with rapid ventricular response I48.91 Severe Lewy body dementia with mood disturbance G31.83; F02.C3 Dementia behavioral or psychological symptom: with mood disturbance Dementia severity: severe Goals of care, counseling/discussion Z71.89
[2025-01-07] MEDS: morphine 4 mg/mL SDV 1 mL IVP ×3 (16:14→21:34)
--- NOTE | 2025-01-07 16:25 | PC.PT ---
PT evaluation cancelled for hospice services
[2025-01-08] VITALS (7 sets, daily range): BP systolic 141–155; BP diastolic 64–74; PULSE 77–96; RESP 26–35; TEMP 37.5–38.5; O2SAT 71–95
[2025-01-08] MEDS: morphine 4 mg/mL SDV 1 mL IVP ×8 (02:39→20:02)
[2025-01-08] MEDS: glycopyrrolate 0.2 mg/mL SDV 2 mL IV ×2 (02:40→07:20)
[2025-01-08] MEDS: blistex lip oint 7 gm Tube 1 APPLIC TOPICAL (02:40)
--- NOTE | 2025-01-08 14:09 | P.PN_ITS ---
Subjective 2 Subjective: Patient was seen this morning, family members at bedside, has tachypnea, mild to moderate respiratory distress, not responsive, discussed with family to see if he qualifies for inpatient hospice as patient has moderate respiratory distress, despite being on comfort care medications Vitals/I&O/Wt Last Vital Signs Temp 99.5 F 01/08/25 11:52 Pulse 77 01/08/25 11:52 Resp 26 H 01/08/25 11:52 BP 141/64 01/08/25 11:52 Pulse Ox 89 L 01/08/25 11:52 O2 Del Method Nasal Cannula 01/08/25 11:52 O2 Flow Rate 2 01/08/25 11:52 FiO2 40 01/07/25 12:11 01/07/25 01/08/25 01/08/25 22:59 06:59 14:59 Intake Total 972.5 / 1022.5 0 / 1022.5 Output Total 300 / 300 400 / 700 Balance 672.5 / 722.5 -400 / 322.5 Weight last 48 hrs Weight 67.812 kg Weight 71.123 kg Physical Exam 2 Const: OTHER: moderate respiratory distress Resp: OTHER: Tachypnea, nasal flaring, crackles Cardio: COMMON NORMALS: S1 normal heart sound present and S2 normal heart sound present RATE: tachycardic HEART SOUNDS: S1 normal heart sound present and S2 normal heart sound present GI: COMMON NORMALS: Normal to inspection, nondistended, normoactive bowel sounds present Extremity: COMMON NORMALS: no pedal edema Urinary Catheter Management: Reaves: Cath Placed During This Visit: yes Reason for Continuing Indwelling Catheter: Hospice/Comfort/Palliative Care Urinary Catheter Date of Insertion: 01/04/25 Data 01/06/25 02:55 01/07/25 05:13 A&P Assessment and plan (1) Acute respiratory failure with hypoxia and hypercarbia: (2) Aspiration pneumonia: (3) Acute kidney injury: (4) Hypernatremia: (5) Dehydration: (6) Altered mental status: (7) Atrial fibrillation with rapid ventricular response: (8) Lewy body dementia: Qualifiers: Dementia behavioral or psychological symptom: with mood disturbance D ementia severity: severe Qualified Code(s): G31.83 - Neurocognitive disorder with Lewy bodies; F02.C3 - Dementia in other diseases classified elsewhere, severe, with mood disturbance (9) Goals of care, counseling/discussion: (10) Encounter for hospice care: Plan Currently on hospice/comfort care, will consult inpatient hospice team PDMP PDMP Reviewed: Not Reviewed Attestations 2 Medical Necessity Statement*: Patient requires hospitalization for hospice/comfort care Diagnoses Acute respiratory failure with hypoxia and hypercarbia J96.01; J96.02 Aspiration pneumonia J69.0 Acute kidney injury N17.9 Hypernatremia E87.0 Dehydration E86.0 Altered mental status R41.82 Atrial fibrillation with rapid ventricular response I48.91 Severe Lewy body dementia with mood disturbance G31.83; F02.C3 Dementia behavioral or psychological symptom: with mood disturbance Dementia severity: severe Goals of care, counseling/discussion Z71.89 Encounter for hospice care Z51.5
--- NOTE | 2025-01-08 20:13 | PC.NURSE ---
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
--- NOTE | 2025-01-08 20:55 | PC.NURSE ---
MAGO MERCEDES notified @ 2054 Ref # [id number]
--- NOTE | 2025-01-08 21:48 | PC.NURSE ---
MTS MTS declined due to recent covid 19 dx. [facility] Site declined due to pt age. Body cleared to be released to home. [facility] contacted for pt pick-up. Due to weather, [facility] requesting to place pt in [facility] until road conditions are safe for transfer.
--- NOTE | 2025-01-09 01:50 | PC.NURSE ---
[place] [facility] [place]
--- NOTE | 2025-01-22 13:14 | PM.DDS ---
Discharge Providers DDS Date of Admission: 01/04/25 13:28 Date Summary Completed: 01/22/25 Attending Provider at Admission: Dejon Álvarez MD Time of : 20:10 Attending Provider at Discharge: Luis Hurtado MD Primary Care Provider: Minnie Coello MD DS Diagnoses Hospital Diagnoses (1) Acute respiratory failure with hypoxia and hypercarbia: (2) Aspiration pneumonia: (3) Acute kidney injury: (4) Hypernatremia: (5) Dehydration: (6) Altered mental status: (7) Atrial fibrillation with rapid ventricular response: (8) Lewy body dementia: Qualifiers: Dementia behavioral or psychological symptom: with mood disturbance Dementia severity: severe Qualified Code(s): G31.83 - Neurocognitive disorder with Lewy bodies; F02.C3 - Dementia in other diseases classified elsewhere, severe, with mood disturbance (9) Goals of care, counseling/discussion: (10) Encounter for hospice care: Reason for Visit Reason for Visit ams - fever Summary Date and Time of Date of : 01/08/25 Time of : 20:10 Summary Summary: This is a 84-year-old male with a past medical history of lewy body dementia, recent history of COVID-19, who presents [facility] for acute hypoxic hypercarbic respiratory failure, aspiration pneumonia, acute kidney injury, atrial fibrillation with rapid ventricular response, dehydration. Patient was admitted to [facility] for medical management, unfortunately patient continued to have acute respiratory failure, secondary to aspiration pneumonia and now with acute respiratory distress, with acute encephalopathy, hypernatremia. After goals of care discussion, patient's family pursued comfort care, patient was transitioned to comfort care, time of 01/08/2025 at 2009. Additional Data Confirmation of as documented by pronouncing clinician: no pulse, no respirations and no heart sounds Family: at bedside Additional persons at bedside: nursing staff Attending/PCP notified?: I am attending Was code activated?: No Autopsy requested?: No Advance directives?: No Hospice patient?: No Discharge Plan Discharge Patient Disposition: Condition: Stable DS Attestations Time Spent in /Discharge Care*: greater than 30 min Quality - AMI: AMI present?: No Quality - Stroke: CVA present?: No Quality - VTE: VTE present?: No Coding Level of Care Code 86678 Total time (in minutes) for Discharge: 45 Diagnoses Acute respiratory failure with hypoxia and hypercarbia J96.01; J96.02 Aspiration pneumonia J69.0 Acute kidney injury N17.9 Hypernatremia E87.0 Dehydration E86.0 Altered mental status R41.82 Atrial fibrillation with rapid ventricular response I48.91 Severe Lewy body dementia with mood disturbance G31.83; F02.C3 Dementia behavioral or psychological symptom: with mood disturbance Dementia severity: severe Goals of care, counseling/discussion Z71.89 Encounter for hospice care Z51.5
== END 2025-01-09 01:45 | disposition expired | DRG 177 ==
LOC: ER 12:59 → ER IP 13:28 → CSU 16:25
PROVIDERS: Admitting Provider Internal Medicine; Emergency Provider Emergency Medicine; PCP Family Medicine; Visit Provider Family Medicine
DX: J69.0 Pneumonitis due to inhalation of food and vomit (principal); J96.01 Acute respiratory failure with hypoxia; J96.02 Acute respiratory failure with hypercapnia; N17.9 Acute kidney failure, unspecified; E87.0 Hyperosmolality and hypernatremia; G93.40 Encephalopathy, unspecified; F02.C3 Dementia in other diseases classified elsewhere, severe, with mood disturbance; E86.0 Dehydration; I48.91 Unspecified atrial fibrillation; G31.83 Neurocognitive disorder with Lewy bodies; Z51.5 Encounter for palliative care; I25.10 Atherosclerotic heart disease of native coronary artery without angina pectoris; G47.30 Sleep apnea, unspecified; Z95.5 Presence of coronary angioplasty implant and graft; I25.2 Old myocardial infarction; Z79.82 Long term (current) use of aspirin
CPT/HCPCS: 36415; 36600; 51702; 70450; 71045; 80048; 80053; 81001; 82533; 82550; 82805; 83605; 83690; 83735; 83880; 84100; 84145; 84443; 84484; 85025; 85610; 87040; 87637; 93005; 94660; 94664; 96365; 96367; 96372; 96376; 99291; A4222; A9270; J0283; J0360; J0696; J1100; J1644; J1720; J1940; J2270; J3370; J3490; J7030; J7050; J7120